=== PATIENT | male | born 1965 | race African-American/Black ===

== ENCOUNTER 2016-09-06 12:39 | Inpatient (IN) | payer OTHER ==
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
[2016-09-06] MEDS ORDERED: hydrOXYzine PAMOATE 50 MG CAPSULE (FP) PO PRN (14:41)
[2016-09-06] MEDS ORDERED: guaiFENesin/D-METHORPHAN HB 10 ML UNIT-DOSE CUPS PO PRN (14:41)
[2016-09-06] MEDS ORDERED: ACETAMINOPHEN 325 MG TABLET (FP) PO PRN (14:41)
[2016-09-06] MEDS ORDERED: MAGNESIUM HYDROX 2400MG/30ML ORAL SUSPENSION 30 ML CUP PO PRN (14:41)
[2016-09-06] MEDS ORDERED: P-EPHED 60MG/TRIPROLIDI 2.5MG TABLET PO PRN (14:41)
[2016-09-06] MEDS ORDERED: MAGNESIUM CITRATE 300 ML BOTTLE PO PRN (14:41)
[2016-09-06] MEDS ORDERED: chlordiazePOXIDE HCL 25 MG CAPSULE PO ONE (14:41)
[2016-09-06] MEDS ORDERED: LOPERAMIDE HCL 2 MG CAPSULE PO PRN (14:41)
[2016-09-06] MEDS ORDERED: MENTHOL/PHENOL 1 EACH UD MM PRN (14:41)
[2016-09-06] MEDS ORDERED: ALBUTEROL SO4 6.7 GM HFA INHALER IH PRN (14:45)
[2016-09-06] MEDS: chlordiazePOXIDE HCL 25 MG CAPSULE PO SCH ×2 (18:50→22:11)
[2016-09-06] MEDS: INSULIN SLIDING SCALE (NOVOLOG) 1 VIAL SQ SCH (18:51)
[2016-09-06] MEDS: NICOTINE 21 MG/24 HOURS TOPICAL PATCH TD SCH (18:51)
[2016-09-06] MEDS ORDERED: MINERAL OIL/PETROLATUM,WHITE 3.5 GM TUBE OU SCH (22:00)
[2016-09-06] MEDS: THIAMINE HCL 100 MG TABLET (FP) PO SCH (22:10)
[2016-09-06] MEDS: ARTIFICIAL TEARS (POLYVINYL ALCOHOL 1.4%) OPTH DROPS OU PRN (22:10)
[2016-09-06] MEDS: ATORVASTATIN CA 20 MG TABLET (FP) PO SCH (22:11)
[2016-09-06] MEDS: TAMSULOSIN HCL 0.4 MG CAP.ER.24H (FP) PO SCH (22:11)
[2016-09-06] MEDS: HYDROCHLOROTHIAZIDE 25 MG TABLET (FP) PO SCH (22:11)
[2016-09-06] MEDS: LOSARTAN POTASSIUM 50 MG TABLET (FP) PO SCH (22:11)
[2016-09-06] MEDS: diphenhydrAMINE HCL 50 MG CAPSULE PO PRN (22:13)
[2016-09-06] MEDS: BUDESONIDE/FORMETEROL FUMARATE 160/4.5 mcg INHALER IH SCH (23:13)
[2016-09-07] MEDS ORDERED: METHADONE HCL 10 MG TABLET ONE (04:22)
[2016-09-07] MEDS ORDERED: METHADONE HCL 40 MG DISPERSABLE TABLET ONE (04:22)
[2016-09-07] MEDS: chlordiazePOXIDE HCL 25 MG CAPSULE PO SCH ×4 (05:44→22:30)
[2016-09-07] MEDS ORDERED: METHADONE HCL 10 MG TABLET (FOR DETOX USE ONLY) PO ONE (06:00)
[2016-09-07] MEDS ORDERED: METHADONE 40 MG, METHADONE 10 MG PO ONE (06:00)
[2016-09-07] MEDS: INSULIN SLIDING SCALE (NOVOLOG) 1 VIAL SQ SCH ×2 (06:55→17:17)
[2016-09-07 09:28] LABS: MCH 36.5 pg (25.7-33.7); MCHC 33.7 g/dl (32.0-35.9); MEAN CELL VOLUME 108.3 fl (80-96); MEAN PLT VOLUME 8.8 fl (7.5-11.1); PLATELET COUNT 155 K/MM3 (134-434); RDW 13.5 % (11.9-15.9); WHITE BLOOD COUNT 4.3 K/mm3 (4.0-10.0)
[2016-09-07 09:44] LABS: ALBUMIN 3.3 g/dl (3.4-5.0); ALK PHOS 170 U/L (45-117); ANION GAP 8 (8-16); BILIRUBIN,TOTAL 0.9 mg/dL (0.2-1.0); CALCIUM 8.5 mg/dL (8.5-10.1); CO2 26 mmol/L (21-32); COCKROFT - GAULT 62.11; CREATININE 1.2 mg/dL (0.7-1.3); GLUCOSE,RANDOM 114 mg/dL (74-106); SGOT/AST 238 U/L (15-37); SGPT/ALT 105 U/L (12-78); TOT PROT 6.5 g/dl (6.4-8.2)
[2016-09-07] MEDS: BUDESONIDE/FORMETEROL FUMARATE 160/4.5 mcg INHALER IH SCH ×2 (10:05→21:37)
[2016-09-07] MEDS: LOSARTAN POTASSIUM 50 MG TABLET (FP) PO SCH ×2 (10:06→21:37)
[2016-09-07] MEDS: HYDROCHLOROTHIAZIDE 25 MG TABLET (FP) PO SCH ×2 (10:06→21:37)
[2016-09-07] MEDS: amLODIPine BESYLATE 10 MG TABLET (FP) PO SCH (10:06)
[2016-09-07] MEDS: ASPIRIN COATED 81 MG TABLET.EC PO SCH (10:06)
[2016-09-07] MEDS: PRENATAL VITAMINS W/ FOLIC ACID TABLET (FP) PO SCH (10:06)
[2016-09-07] MEDS: NICOTINE 21 MG/24 HOURS TOPICAL PATCH TD SCH ×2 (10:07→10:14)
[2016-09-07] MEDS: chlordiazePOXIDE HCL 25 MG CAPSULE PO PRN (14:12)
--- NOTE | 2016-09-07 15:09 | PN ---
S CIWA - CIWA Score Nausea/Vomitin Muscle Tremors: 4-Moderate,w/Arms Extend Anxiety: 4-Mod. Anxious/Guarded Agitation: 4-Moderately Restless Paroxysmal Sweats: 3 Orientation: 0-Oriented Tacttile Disturbances: 3-Moderate Itch/Numb/Burn Auditory Disturbances: 0-None Visual Disturbances: 0-None Headache: 2-Mild CIWA-Ar Total Score: 23 BHS Progress Note (SOAP) Subjective: Nausea, tremor, chills, sense or crawling in skin, interrupted sleep, anxious, restless Objective: 09/07/16 15:06 Last Vital Signs Temp Pulse Resp BP Pulse Ox 97.2 F L 82 20 147/104 09/07/16 13:47 09/07/16 13:47 09/07/16 13:47 09/07/16 13:47 Laboratory Tests 09/06/16 09/07/16 09/07/16 18:37 05:45 06:20 WBC 4.3 RBC 3.06 L Hgb 11.2 L Hct 33.2 L MCV 108.3 H MCHC 33.7 RDW 13.5 D Plt Count 155 MPV 8.8 Sodium Potassium Chloride Carbon Dioxide Anion Gap BUN Creatinine Creat Clearance w eGFR POC Glucometer 102 106 Random Glucose Calcium Total Bilirubin AST ALT Alkaline Phosphatase Total Protein Albumin RPR Titer 09/07/16 09/07/16 06:20 06:20 WBC RBC Hgb Hct MCV MCHC RDW Plt Count MPV Sodium 145 Potassium 3.6 Chloride 111 H Carbon Dioxide 26 Anion Gap 8 BUN 14 D Creatinine 1.2 Creat Clearance w eGFR > 60 POC Glucometer Random Glucose 114 H D Calcium 8.5 Total Bilirubin 0.9 D AST 238 H D ALT 105 H D Alkaline Phosphatase 170 H Total Protein 6.5 Albumin 3.3 L RPR Titer Nonreactive Labs noted Assessment: 09/07/16 15:07 Withdrawal symptoms Noted with HTN Plan: Continue detox HTN: continue present regimen, monitor
[2016-09-07] MEDS ORDERED: INSULIN (NOVOLOG) ASPART 100 UNITS/ML 10ML VIAL ONE (16:43)
[2016-09-07] MEDS: ARTIFICIAL TEARS (POLYVINYL ALCOHOL 1.4%) OPTH DROPS OU PRN (21:36)
[2016-09-07] MEDS: THIAMINE HCL 100 MG TABLET (FP) PO SCH (21:36)
[2016-09-07] MEDS: TAMSULOSIN HCL 0.4 MG CAP.ER.24H (FP) PO SCH (21:37)
[2016-09-07] MEDS: ATORVASTATIN CA 20 MG TABLET (FP) PO SCH (21:37)
[2016-09-07] MEDS: diphenhydrAMINE HCL 50 MG CAPSULE PO PRN (21:41)
[2016-09-08] MEDS ORDERED: METHADONE HCL 10 MG TABLET ONE (04:55)
[2016-09-08] MEDS ORDERED: METHADONE HCL 40 MG DISPERSABLE TABLET ONE (04:56)
[2016-09-08] MEDS: chlordiazePOXIDE HCL 25 MG CAPSULE PO SCH ×2 (05:03→10:04)
[2016-09-08] MEDS ORDERED: METHADONE HCL 10 MG TABLET PO ONE (06:00)
[2016-09-08] MEDS ORDERED: METHADONE 40 MG, METHADONE 10 MG PO ONE (06:00)
[2016-09-08] MEDS: INSULIN SLIDING SCALE (NOVOLOG) 1 VIAL SQ SCH ×2 (07:18→17:02)
[2016-09-08] MEDS ORDERED: INSULIN (NOVOLOG) ASPART 100 UNITS/ML 10ML VIAL ONE (07:31)
[2016-09-08] MEDS: BUDESONIDE/FORMETEROL FUMARATE 160/4.5 mcg INHALER IH SCH ×2 (10:03→22:05)
[2016-09-08] MEDS: amLODIPine BESYLATE 10 MG TABLET (FP) PO SCH (10:04)
[2016-09-08] MEDS: HYDROCHLOROTHIAZIDE 25 MG TABLET (FP) PO SCH ×2 (10:04→22:06)
[2016-09-08] MEDS: NICOTINE 21 MG/24 HOURS TOPICAL PATCH TD SCH (10:04)
[2016-09-08] MEDS: TIOTROPIUM BROMIDE 2.5 MCG IH SCH (10:04)
[2016-09-08] MEDS: PRENATAL VITAMINS W/ FOLIC ACID TABLET (FP) PO SCH (10:04)
[2016-09-08] MEDS: ASPIRIN COATED 81 MG TABLET.EC PO SCH (10:04)
[2016-09-08] MEDS: LOSARTAN POTASSIUM 50 MG TABLET (FP) PO SCH ×2 (10:04→22:05)
[2016-09-08] MEDS: IBUPROFEN 400 MG TABLET (FP) PO PRN ×2 (11:12→22:09)
--- NOTE | 2016-09-08 11:20 | EKG ---
Test Reason : Blood Pressure : / mmHG Vent. Rate : 082 BPM Atrial Rate : 082 BPM P-R Int : 162 ms QRS Dur : 080 ms QT Int : 398 ms P-R-T Axes : 000 036 028 degrees QTc Int : 464 ms NORMAL SINUS RHYTHM MINIMAL VOLTAGE CRITERIA FOR LVH, MAY BE NORMAL VARIANT NONSPECIFIC T WAVE ABNORMALITY ABNORMAL ECG NO PREVIOUS ECGS AVAILABLE Confirmed by LAURA NARAYANAN MD ([id number]) on 09/08/2016 11:19:53 AM Referred By: Confirmed By:LAURA NARAYANAN MD
--- NOTE | 2016-09-08 11:52 | CONSULT ---
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 Substance Abuse History: - Smoking Cessation. Smoking history: Current every day smoker. Have you smoked in the past 12 months: Yes. Aproximately how many cigarettes per day: 15. Cigars Per Day: 0. Hx Chewing Tobacco Use: No. Initiated information on smoking cessation: Yes. 'Breaking Loose' booklet given : 09/06/16 (give on floor). - Substance & Tx. History. Hx Alcohol Use: Yes. Hx Substance Use: No. Substance Use Type: None. Hx Substance Use Treatment: Yes (detox). - Substances Abused. Alcohol. Route: Oral. Frequency: Daily. Amount used: 2 quarts vodka. Age of first use: 16. Date of Last Use: 09/06/16. Confirmed by patient. Medical History: Anemia,COPD,diabetes mellitus,alcoholic hepatitis,hypertension, GERD and a history of appendectomy. Psychiatric History: Patient admits to a history of multiple psychiatric hospitalizations.He is [facility].Diagnosed with Bipolar Disorder.Patient used to be on seroquel 200 mg po bid.Mr Whitmore is currently followed at the [facility].He indicates that his dose of seroquel has been considerably reduced (100 mg/hs).Review of pharmacy claims reveals that scripts for seroquel 200 mg/day was issued on 03/19/16 @ [facility].Noted remote history of suicidal ideation to jump off a roof years ago (no attempts). Physical/Sexual Abuse/Trauma History: Patient denies. Additional Comment: Urine Drug Screen Results: TRES-Cocaine, BZO-Benzodiazepines , MTD-Methadone.Noted. Mental Status Exam - Mental Status Exam Alert and Oriented to: Time, Place, Person Cognitive Function: Good Patient Appearance: Well Groomed Mood: Hopeful, Euthymic Affect: Appropriate, Normal Range Patient Behavior: Fatigued, Appropriate, Cooperative Speech Pattern: Clear Voice Loudness: Normal Thought Process: Intact, Goal Oriented Thought Disorder: Not Present Hallucinations: Denies Suicidal Ideation: Denies Homicidal Ideation: Denies Insight/Judgement: Poor Sleep: Poorly, Difficulty falling asleep Appetite: Good Muscle strength/Tone: Normal Gait/Station: Normal Psychiatric Findings - Problem List ([place] 1, 2,3) (1) Alcohol dependence with uncomplicated withdrawal Current Visit: Yes Status: Acute (2) Opioid dependence on agonist therapy Current Visit: Yes Status: Acute (3) Cocaine dependence Current Visit: Yes Status: Acute (4) Nicotine dependence Current Visit: Yes Status: Acute Qualifiers: Nicotine product type: cigarettes Substance use status: uncomplicated Qualified Code(s): F17.210 - Nicotine dependence, cigarettes, uncomplicated (5) Drug-induced mood disorder Current Visit: Yes Status: Acute (6) Bipolar disorder Current Visit: Yes Status: Chronic Comment: Historical diagnosis. (7) Hypercholesteremia Current Visit: Yes Status: Chronic (8) Hypertension Current Visit: Yes Status: Chronic Qualifiers: Hypertension type: essential hypertension Qualified Code(s): I10 - Essential (primary) hypertension (9) Weight loss Current Visit: Yes Status: Chronic (10) Insomnia Current Visit: Yes Status: Acute - Initial Treatment Plan Initial Treatment Plan: Psychoeducation.Detoxification.Seroquel 100 mg po hs.Side effects/benefits discussed with the patient.He agrees with this careplan.Observation.
[2016-09-08] MEDS ORDERED: INSULIN (NOVOLOG) ASPART 100 UNITS/ML 10ML VIAL SQ ONE (12:24)
--- NOTE | 2016-09-08 14:08 | PN ---
S CIWA - CIWA Score Nausea/Vomitin Muscle Tremors: 3 Anxiety: 4-Mod. Anxious/Guarded Agitation: 3 Paroxysmal Sweats: No Perspiration Orientation: 0-Oriented Tacttile Disturbances: 1-Very Mild Itch/Numbness Auditory Disturbances: 0-None Visual Disturbances: 0-None Headache: 1-Very Mild CIWA-Ar Total Score: 15 BHS Progress Note (SOAP) Subjective: Sweating, anxious, interrupted sleep, abdominal pain Objective: 09/08/16 14:05 Last Vital Signs Temp Pulse Resp BP Pulse Ox 99.3 F 89 18 124/92 09/08/16 13:32 09/08/16 13:32 09/08/16 13:32 09/08/16 13:32 Laboratory Tests 09/06/16 09/07/16 09/07/16 18:37 05:45 06:20 WBC 4.3 RBC 3.06 L Hgb 11.2 L Hct 33.2 L MCV 108.3 H MCHC 33.7 RDW 13.5 D Plt Count 155 MPV 8.8 Sodium Potassium Chloride Carbon Dioxide Anion Gap BUN Creatinine Creat Clearance w eGFR POC Glucometer 102 106 Random Glucose Calcium Total Bilirubin AST ALT Alkaline Phosphatase Total Protein Albumin RPR Titer 09/07/16 09/07/16 09/07/16 06:20 06:20 16:09 WBC RBC Hgb Hct MCV MCHC RDW Plt Count MPV Sodium 145 Potassium 3.6 Chloride 111 H Carbon Dioxide 26 Anion Gap 8 BUN 14 D Creatinine 1.2 Creat Clearance w eGFR > 60 POC Glucometer 218 Random Glucose 114 H D Calcium 8.5 Total Bilirubin 0.9 D AST 238 H D ALT 105 H D Alkaline Phosphatase 170 H Total Protein 6.5 Albumin 3.3 L RPR Titer Nonreactive 09/07/16 09/08/16 09/08/16 20:59 05:05 11:11 WBC RBC Hgb Hct MCV MCHC RDW Plt Count MPV Sodium Potassium Chloride Carbon Dioxide Anion Gap BUN Creatinine Creat Clearance w eGFR POC Glucometer 173 240 224 Random Glucose Calcium Total Bilirubin AST ALT Alkaline Phosphatase Total Protein Albumin RPR Titer Labs noted Assessment: 09/08/16 14:05 Withdrawal symptoms Plan: Continue detox Motrin 800mg PO q8hr prn pain scale 6-10/10 (use sparingly due to history of dm) , avoid tylenol due to elevated LFTs
[2016-09-08 14:21] LABS: URINE APPEARANCE CLEAR; URINE BILIRUBIN NEGATIVE (NEGATIVE); URINE BLOOD NEGATIVE (NEGATIVE); URINE COLOR YELLOW; URINE GLUCOSE (UA) 2+ (NEGATIVE); URINE KETONE NEGATIVE (NEGATIVE); URINE LEUK ESTERASE NEGATIVE (NEGATIVE); URINE NITRITE NEGATIVE (NEGATIVE); URINE PROTEIN NEGATIVE (NEGATIVE); URINE UROBILINOGEN 2.0 E.U/dl E.U./dl (0.2-1.0)
[2016-09-08] MEDS: chlordiazePOXIDE 5 MG CAPSULE PO SCH ×2 (17:02→22:05)
[2016-09-08] MEDS: QUEtiapine FUMARATE 100 MG TABLET (FP) PO SCH (22:05)
[2016-09-08] MEDS: ATORVASTATIN CA 20 MG TABLET (FP) PO SCH (22:05)
[2016-09-08] MEDS: THIAMINE HCL 100 MG TABLET (FP) PO SCH (22:06)
[2016-09-08] MEDS: TAMSULOSIN HCL 0.4 MG CAP.ER.24H (FP) PO SCH (22:06)
[2016-09-09] MEDS: chlordiazePOXIDE 5 MG CAPSULE PO SCH ×2 (05:22→10:15)
[2016-09-09] MEDS ORDERED: INSULIN (NOVOLOG) ASPART 100 UNITS/ML 10ML VIAL ONE (07:24)
[2016-09-09] MEDS ORDERED: METHADONE HCL 10 MG TABLET PO SCH (07:30)
[2016-09-09] MEDS: INSULIN SLIDING SCALE (NOVOLOG) 1 VIAL SQ SCH ×3 (07:37→16:24)
[2016-09-09] MEDS ORDERED: METHADONE HCL 10 MG TABLET ONE (07:50)
[2016-09-09] MEDS ORDERED: METHADONE HCL 40 MG DISPERSABLE TABLET ONE (07:51)
[2016-09-09] MEDS: METHADONE 40 MG, METHADONE 10 MG PO SCH (07:52)
[2016-09-09] MEDS: TIOTROPIUM BROMIDE 2.5 MCG IH SCH ×2 (08:45→10:13)
[2016-09-09] MEDS: BUDESONIDE/FORMETEROL FUMARATE 160/4.5 mcg INHALER IH SCH ×2 (10:13→22:00)
[2016-09-09] MEDS: ARTIFICIAL TEARS (POLYVINYL ALCOHOL 1.4%) OPTH DROPS OU PRN (10:14)
[2016-09-09] MEDS: HYDROCHLOROTHIAZIDE 25 MG TABLET (FP) PO SCH ×2 (10:15→22:01)
[2016-09-09] MEDS: amLODIPine BESYLATE 10 MG TABLET (FP) PO SCH (10:15)
[2016-09-09] MEDS: PRENATAL VITAMINS W/ FOLIC ACID TABLET (FP) PO SCH (10:15)
[2016-09-09] MEDS: ASPIRIN COATED 81 MG TABLET.EC PO SCH (10:15)
[2016-09-09] MEDS: NICOTINE 21 MG/24 HOURS TOPICAL PATCH TD SCH (10:15)
[2016-09-09] MEDS: LOSARTAN POTASSIUM 50 MG TABLET (FP) PO SCH ×2 (10:15→22:01)
--- NOTE | 2016-09-09 10:42 | PN ---
BHS Progress Note (SOAP) Subjective: ANXIETY,HEADACHE,STOMACH CRAMPS, DIARRHEA FRONTAL RIGHT SIDE HEADACHE. Objective: 09/09/16 10:42 Vital Signs 09/09/16 09/09/16 09/09/16 03:35 06:17 09:14 Temperature 98.0 F 98.1 F Pulse Rate 99 H 77 Respiratory 18 18 18 Rate Blood Pressure 115/90 130/77 09/09/16 09:20 Temperature Pulse Rate 77 Respiratory 18 Rate Blood Pressure 130/77 Assessment: 09/09/16 10:42 WITHDRAWAL SX Plan: CONTINUE DETOX
[2016-09-09] MEDS: MAG HYDROX/AL HYDROX/SIMETH 30 ML UNIT-DOSE CUP PO PRN ×2 (11:36→21:32)
[2016-09-09] MEDS ORDERED: PATIENT'S OWN MEDICATION (NON-FORMULARY) (Dextran 70/Hypromellose [Artificial Tears Eye Dr OP SCH (13:15)
[2016-09-09] MEDS: PANTOPRAZOLE 40 MG TABLET (FP) PO SCH (14:37)
[2016-09-09] MEDS: DOCUSATE SODIUM 100 MG CAPSULE (FP) PO SCH ×2 (14:37→22:01)
[2016-09-09] MEDS: FERROUS SO4 325 MG TABLET (FP) PO SCH (14:37)
[2016-09-09] MEDS: chlordiazePOXIDE HCL 25 MG CAPSULE PO PRN (14:38)
[2016-09-09] MEDS: chlordiazePOXIDE HCL 10 MG CAPSULE PO SCH ×2 (17:48→22:01)
[2016-09-09] MEDS: IBUPROFEN 400 MG TABLET (FP) PO PRN (17:56)
[2016-09-09] MEDS: QUEtiapine FUMARATE 100 MG TABLET (FP) PO SCH (22:01)
[2016-09-09] MEDS: THIAMINE HCL 100 MG TABLET (FP) PO SCH (22:01)
[2016-09-09] MEDS: TAMSULOSIN HCL 0.4 MG CAP.ER.24H (FP) PO SCH (22:01)
[2016-09-09] MEDS: ATORVASTATIN CA 20 MG TABLET (FP) PO SCH (22:01)
[2016-09-10] MEDS ORDERED: METHADONE HCL 10 MG TABLET ONE (03:52)
[2016-09-10] MEDS ORDERED: METHADONE HCL 40 MG DISPERSABLE TABLET ONE (03:53)
[2016-09-10] MEDS: chlordiazePOXIDE HCL 10 MG CAPSULE PO SCH ×2 (05:24→10:06)
[2016-09-10] MEDS: DOCUSATE SODIUM 100 MG CAPSULE (FP) PO SCH (05:24)
[2016-09-10] MEDS: METHADONE 40 MG, METHADONE 10 MG PO SCH (05:25)
[2016-09-10] MEDS: INSULIN SLIDING SCALE (NOVOLOG) 1 VIAL SQ SCH ×2 (06:37→11:41)
[2016-09-10 09:29] VITALS: BP 104/80; PULSE 95; TEMP 96.9
[2016-09-10] MEDS: TIOTROPIUM BROMIDE 2.5 MCG IH SCH (10:05)
[2016-09-10] MEDS: ASPIRIN COATED 81 MG TABLET.EC PO SCH (10:05)
[2016-09-10] MEDS: BUDESONIDE/FORMETEROL FUMARATE 160/4.5 mcg INHALER IH SCH (10:05)
[2016-09-10] MEDS: ARTIFICIAL TEARS (POLYVINYL ALCOHOL 1.4%) OPTH DROPS OU PRN (10:05)
[2016-09-10] MEDS: amLODIPine BESYLATE 10 MG TABLET (FP) PO SCH (10:05)
[2016-09-10] MEDS: HYDROCHLOROTHIAZIDE 25 MG TABLET (FP) PO SCH (10:06)
[2016-09-10] MEDS: PANTOPRAZOLE 40 MG TABLET (FP) PO SCH (10:06)
[2016-09-10] MEDS: PRENATAL VITAMINS W/ FOLIC ACID TABLET (FP) PO SCH (10:06)
[2016-09-10] MEDS: LOSARTAN POTASSIUM 50 MG TABLET (FP) PO SCH (10:06)
[2016-09-10] MEDS: NICOTINE 21 MG/24 HOURS TOPICAL PATCH TD SCH (10:06)
[2016-09-10] MEDS: FERROUS SO4 325 MG TABLET (FP) PO SCH (10:07)
--- NOTE | 2016-09-10 10:35 | DS ---
[facility] Detox Discharge Summary Admission Date: 09/06/16 Discharge Date: 09/10/16 - History Present History: Alcohol Dependence, MMTP Additional Comments: DETOX COMPLETED. ALERT O X 3. NAD. REFERRED TO REHAB TODAY. Pertinent Past History: ANEMIA HTN HYPERCHOLESTEROLEMIA WEIGHT LOSS PANCREATITIS GERD - Physical Exam Results Vital Signs: Vital Signs Temperature 96.9 F L 09/10/16 09:28 Pulse Rate 95 H 09/10/16 09:28 Respiratory Rate 20 09/10/16 09:28 Blood Pressure 104/80 09/10/16 09:28 O2 Sat by Pulse Oximetry (%) Pertinent Admission Physical Exam Findings: WITHDRAWAL SX - Treatment Hospital Course: Detox Protocol Followed, Detoxed Safely, Responded well, Discharged Condition Good, Rehab Referral Accepted Patient has Accepted a Rehab Referral to: [address] - Medication Discharge Medications: Ambulatory Orders Cyanocobalamin [Vitamin B12 -] 100 mcg PO DAILY 09/26/14 Testosterone [Androgel -] 25 mg TP DAILY 09/26/14 Thiamine HCl [Vitamin B1 -] 100 mg PO DAILY 09/26/14 Albuterol Sulfate Inhaler - [Ventolin HFA Inhaler -] 2 inh IH Q4H PRN #1 inh 12/26 Atorvastatin Ca [Lipitor] 20 mg PO HS #30 tablet 11/19/14 Aspirin [Aspirin EC] 81 mg PO DAILY #30 tablet. 06/10/15 Ferrous Sulfate [Feosol] 325 mg PO DAILY #90 ud 06/10/15 Amlodipine Besylate [Norvasc -] 10 mg PO DAILY 09/06/16 Budesonide/Formeterol Fumarate [SYMBICORT 160/4.5mcg -] 1 inh PO BID 09/06/16 Dextran 70/Hypromellose [Artificial Tears Eye Drops] 1 drop OP DAILY 09/06/16 Docusate Sodium [Colace -] 100 mg PO TID 09/06/16 Famotidine 20 mg PO BID 09/06/16 Hydrochlorothiazide 25 mg PO BID 09/06/16 Losartan Potassium [Cozaar -] 50 mg PO BID 09/06/16 Mineral Oil/Petrolatum,White [Advanced Eye Relief Opth Oint] 3.5 gm OP HS Multivitamins [Tab-A-Vit -] 1 tab PO DAILY 09/06/16 Tamsulosin HCl [Flomax -] 0.4 mg PO HS 09/06/16 Tiotropium [place] [Spiriva Respimat] 2.5 mcg IH DAILY 09/06/16 Quetiapine Fumarate [Seroquel] 100 mg PO HS #30 tablet 09/08/16 - Diagnosis (1) Alcohol dependence with uncomplicated withdrawal Current Visit: Yes Status: Acute (2) History of anemia Current Visit: Yes Status: Acute (3) Nicotine dependence Current Visit: Yes Status: Acute Qualifiers: Nicotine product type: cigarettes Substance use status: in withdrawal Qualified Code(s): F17.213 - Nicotine dependence, cigarettes, with withdrawal (4) Hypercholesteremia Current Visit: Yes Status: Chronic (5) Hypertension Current Visit: Yes Status: Chronic Qualifiers: Hypertension type: essential hypertension Qualified Code(s): I10 - Essential (primary) hypertension (6) Methadone maintenance therapy patient Current Visit: Yes Status: Chronic (7) Weight loss Current Visit: Yes Status: Chronic - AMA Did Patient Leave Against Medical Advice: No
[2016-09-10] MEDS ORDERED: INSULIN (NOVOLOG) ASPART 100 UNITS/ML 10ML VIAL ONE (11:38)
== END 2016-09-10 12:35 | disposition other institution (70) | DRG 773 ==
LOC: YASAS 12:39 → Y3N 13:50 → UNDOADMIN 13:50 → Y3N 17:05
PROVIDERS: ADMIT Internal Medicine; ATTEND Internal Medicine
PROC: HZ2ZZZZ Detoxification Services for Substance Abuse Treatment (ICD-10-PCS; principal; 2016-09-06)
DX: F10.230 Alcohol dependence with withdrawal, uncomplicated (principal); F11.20 Opioid dependence, uncomplicated; F17.213 Nicotine dependence, cigarettes, with withdrawal; F19.24 Other psychoactive substance dependence with psychoactive substance-induced mood disorder; F31.9 Bipolar disorder, unspecified; E78.00 Pure hypercholesterolemia, unspecified; D64.9 Anemia, unspecified; I10 Essential (primary) hypertension; J44.9 Chronic obstructive pulmonary disease, unspecified; K21.9 Gastro-esophageal reflux disease without esophagitis; G47.00 Insomnia, unspecified; R16.0 Hepatomegaly, not elsewhere classified; Z87.898 Personal history of other specified conditions; Z79.82 Long term (current) use of aspirin; Z87.19 Personal history of other diseases of the digestive system; Z86.69 Personal history of other diseases of the nervous system and sense organs; Z91.5 Personal history of self-harm
CPT/HCPCS: 36415; 80053; 81003; 85027; 86593; 93005; 93010

== ENCOUNTER 2016-09-10 13:02 | Inpatient (IN) | payer OTHER ==
[2016-09-10] MEDS ORDERED: ACETAMINOPHEN 325 MG TABLET (FP) PO PRN (16:13)
[2016-09-10] MEDS ORDERED: IBUPROFEN 400 MG TABLET (FP) PO PRN (16:13)
[2016-09-10] MEDS ORDERED: LOPERAMIDE HCL 2 MG CAPSULE PO PRN (16:13)
[2016-09-10] MEDS ORDERED: MAGNESIUM HYDROX 2400MG/30ML ORAL SUSPENSION 30 ML CUP PO PRN (16:13)
[2016-09-10] MEDS ORDERED: MENTHOL/PHENOL 1 EACH UD MM PRN (16:13)
[2016-09-10] MEDS ORDERED: MAGNESIUM CITRATE 300 ML BOTTLE PO PRN (16:13)
[2016-09-10] MEDS ORDERED: guaiFENesin/D-METHORPHAN HB 10 ML UNIT-DOSE CUPS PO PRN (16:13)
[2016-09-10] MEDS ORDERED: P-EPHED 60MG/TRIPROLIDI 2.5MG TABLET PO PRN (16:13)
[2016-09-10] MEDS ORDERED: ALBUTEROL SO4 6.7 GM HFA INHALER IH PRN (16:14)
--- NOTE | 2016-09-10 16:19 | HP ---
[facility] Rehab Assess/Revision - Admission History Admitted to Rehab from: [facility] Date of Admission to Rehab: 09/10/16 - Vital signs Vital Signs: Vital Signs Period Temp Pulse Resp BP Sys/Lopez Pulse Ox Last 24 Hr 98 F 104 16 94/54 - Findings Detox History & Physical reviewed: Yes Concur with findings: Yes Comments/Additional Findings: transferred from dertox to rehab admission as per protocol
[2016-09-10] MEDS: TAMSULOSIN HCL 0.4 MG CAP.ER.24H (FP) PO SCH (21:33)
[2016-09-10] MEDS: THIAMINE HCL 100 MG TABLET (FP) PO SCH (21:33)
[2016-09-10] MEDS: ATORVASTATIN CA 20 MG TABLET (FP) PO SCH (21:33)
[2016-09-10] MEDS: HYDROCHLOROTHIAZIDE 25 MG TABLET (FP) PO SCH (21:33)
[2016-09-10] MEDS: LOSARTAN POTASSIUM 50 MG TABLET (FP) PO SCH (21:33)
[2016-09-10] MEDS: DOCUSATE SODIUM 100 MG CAPSULE (FP) PO SCH (21:33)
[2016-09-10] MEDS: BUDESONIDE/FORMETEROL FUMARATE 160/4.5 mcg INHALER IH SCH (21:35)
[2016-09-10] MEDS: ACLIDINIUM BROMIDE 400 MCG/INH AERO.POWD IH SCH (21:37)
[2016-09-10] MEDS: diphenhydrAMINE HCL 50 MG CAPSULE PO PRN (21:37)
[2016-09-11] MEDS ORDERED: METHADONE HCL 40 MG DISPERSABLE TABLET PO SCH (06:45)
[2016-09-11] MEDS ORDERED: METHADONE HCL 10 MG TABLET ONE (06:46)
[2016-09-11] MEDS ORDERED: METHADONE HCL 40 MG DISPERSABLE TABLET ONE (06:47)
[2016-09-11] MEDS: METHADONE 40 MG, METHADONE 10 MG PO SCH (06:48)
[2016-09-11] MEDS: DOCUSATE SODIUM 100 MG CAPSULE (FP) PO SCH ×3 (06:48→21:43)
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
[2016-09-11] MEDS ORDERED: PATIENT'S OWN MEDICATION (NON-FORMULARY) (Dextran 70/Hypromellose [Artificial Tears Eye Dr OP SCH (10:00)
[2016-09-11] MEDS: BUDESONIDE/FORMETEROL FUMARATE 160/4.5 mcg INHALER IH SCH ×2 (10:16→21:44)
[2016-09-11] MEDS: ARTIFICIAL TEARS (POLYVINYL ALCOHOL 1.4%) OPTH DROPS OU SCH (10:16)
[2016-09-11] MEDS: ACLIDINIUM BROMIDE 400 MCG/INH AERO.POWD IH SCH ×2 (10:16→21:44)
[2016-09-11] MEDS: PRENATAL VITAMINS W/ FOLIC ACID TABLET (FP) PO SCH (10:17)
[2016-09-11] MEDS: ASPIRIN COATED 81 MG TABLET.EC PO SCH (10:17)
[2016-09-11] MEDS: CYANOCOBALAMIN (VITAMIN B-12) 100 MCG TABLET PO SCH (10:17)
[2016-09-11] MEDS: FERROUS SO4 325 MG TABLET (FP) PO SCH (10:17)
[2016-09-11] MEDS: LOSARTAN POTASSIUM 50 MG TABLET (FP) PO SCH ×2 (10:53→21:43)
[2016-09-11] MEDS: amLODIPine BESYLATE 10 MG TABLET (FP) PO SCH (10:53)
[2016-09-11] MEDS: HYDROCHLOROTHIAZIDE 25 MG TABLET (FP) PO SCH ×2 (10:53→21:43)
[2016-09-11] MEDS ORDERED: PNEUMOCOCCAL 23 VACCINE 0.5 ML VIAL IM ONE (12:00)
[2016-09-11] MEDS ORDERED: PNEUMOC 13-VAL CONJ-DIP CRM/PF 0.5 ML DISP.SYRIN IM ONE (13:00)
--- NOTE | 2016-09-11 13:24 | PN ---
BHS Progress Note Note: HISTORY OF PANCREATITIS,ANEMIA,WILL DO CBC,CM,AMYLASE,LIPASE IN AM,ON IRON 325 PGS PO DAILY
[2016-09-11] MEDS: ATORVASTATIN CA 20 MG TABLET (FP) PO SCH (21:43)
[2016-09-11] MEDS: TAMSULOSIN HCL 0.4 MG CAP.ER.24H (FP) PO SCH (21:43)
[2016-09-11] MEDS: QUEtiapine FUMARATE 200 MG TABLET PO SCH (21:43)
[2016-09-11] MEDS: THIAMINE HCL 100 MG TABLET (FP) PO SCH (21:43)
[2016-09-11] MEDS: diphenhydrAMINE HCL 50 MG CAPSULE PO PRN (21:47)
[2016-09-11] MEDS: PATIENT'S OWN MEDICATION (NON-FORMULARY) (Famotidine [Famotidine] 20 MG) PO SCH (21:47)
[2016-09-12] MEDS: MAG HYDROX/AL HYDROX/SIMETH 30 ML UNIT-DOSE CUP PO PRN (01:28)
[2016-09-12] MEDS ORDERED: METHADONE HCL 10 MG TABLET ONE (03:24)
[2016-09-12] MEDS ORDERED: METHADONE HCL 40 MG DISPERSABLE TABLET ONE (03:24)
[2016-09-12] MEDS: METHADONE 40 MG, METHADONE 10 MG PO SCH (06:08)
[2016-09-12] MEDS: DOCUSATE SODIUM 100 MG CAPSULE (FP) PO SCH ×3 (06:08→21:46)
[2016-09-12] MEDS: PRENATAL VITAMINS W/ FOLIC ACID TABLET (FP) PO SCH (10:17)
[2016-09-12] MEDS: FERROUS SO4 325 MG TABLET (FP) PO SCH (10:17)
[2016-09-12] MEDS: CYANOCOBALAMIN (VITAMIN B-12) 100 MCG TABLET PO SCH (10:17)
[2016-09-12] MEDS: ASPIRIN COATED 81 MG TABLET.EC PO SCH (10:17)
[2016-09-12] MEDS: ACLIDINIUM BROMIDE 400 MCG/INH AERO.POWD IH SCH ×2 (10:17→21:48)
[2016-09-12] MEDS: BUDESONIDE/FORMETEROL FUMARATE 160/4.5 mcg INHALER IH SCH ×2 (10:18→21:48)
[2016-09-12] MEDS: amLODIPine BESYLATE 10 MG TABLET (FP) PO SCH (10:18)
[2016-09-12] MEDS: HYDROCHLOROTHIAZIDE 25 MG TABLET (FP) PO SCH ×2 (10:18→21:50)
[2016-09-12] MEDS: PATIENT'S OWN MEDICATION (NON-FORMULARY) (Famotidine [Famotidine] 20 MG) PO SCH ×2 (10:18→21:49)
[2016-09-12] MEDS: LOSARTAN POTASSIUM 50 MG TABLET (FP) PO SCH ×2 (10:19→21:47)
[2016-09-12] MEDS: ARTIFICIAL TEARS (POLYVINYL ALCOHOL 1.4%) OPTH DROPS OU SCH (10:21)
[2016-09-12 13:55] LABS: MCH 37.2 pg (25.7-33.7); MCHC 33.6 g/dl (32.0-35.9); MEAN CELL VOLUME 110.5 fl (80-96); MEAN PLT VOLUME 9.7 fl (7.5-11.1); PLATELET COUNT 182 K/MM3 (134-434); RDW 13.7 % (11.9-15.9); WHITE BLOOD COUNT 4.6 K/mm3 (4.0-10.0)
[2016-09-12 14:10] LABS: ALBUMIN 3.6 g/dl (3.4-5.0); CALCIUM 9.1 mg/dL (8.5-10.1); COCKROFT - GAULT 40.19; CREATININE 1.8 mg/dL (0.7-1.3)
[2016-09-12 14:12] LABS: BILIRUBIN,TOTAL 0.7 mg/dL (0.2-1.0); TOT PROT 6.9 g/dl (6.4-8.2)
[2016-09-12 14:20] LABS: HYPOCHROMIA 2+
[2016-09-12] MEDS: TAMSULOSIN HCL 0.4 MG CAP.ER.24H (FP) PO SCH (21:46)
[2016-09-12] MEDS: ATORVASTATIN CA 20 MG TABLET (FP) PO SCH (21:46)
[2016-09-12] MEDS: QUEtiapine FUMARATE 200 MG TABLET PO SCH (21:46)
[2016-09-12] MEDS: THIAMINE HCL 100 MG TABLET (FP) PO SCH (21:46)
[2016-09-13] MEDS ORDERED: METHADONE HCL 10 MG TABLET ONE (03:55)
[2016-09-13] MEDS ORDERED: METHADONE HCL 40 MG DISPERSABLE TABLET ONE (03:55)
[2016-09-13] MEDS: DOCUSATE SODIUM 100 MG CAPSULE (FP) PO SCH ×3 (06:26→21:47)
[2016-09-13] MEDS: METHADONE 40 MG, METHADONE 10 MG PO SCH (06:26)
[2016-09-13] MEDS: ASPIRIN COATED 81 MG TABLET.EC PO SCH (10:08)
[2016-09-13] MEDS: PRENATAL VITAMINS W/ FOLIC ACID TABLET (FP) PO SCH (10:08)
[2016-09-13] MEDS: FERROUS SO4 325 MG TABLET (FP) PO SCH (10:08)
[2016-09-13] MEDS: CYANOCOBALAMIN (VITAMIN B-12) 100 MCG TABLET PO SCH (10:08)
[2016-09-13] MEDS: LOSARTAN POTASSIUM 50 MG TABLET (FP) PO SCH ×2 (10:09→21:47)
[2016-09-13] MEDS: BUDESONIDE/FORMETEROL FUMARATE 160/4.5 mcg INHALER IH SCH ×2 (10:09→21:47)
[2016-09-13] MEDS: PATIENT'S OWN MEDICATION (NON-FORMULARY) (Famotidine [Famotidine] 20 MG) PO SCH ×2 (10:09→21:50)
[2016-09-13] MEDS: ARTIFICIAL TEARS (POLYVINYL ALCOHOL 1.4%) OPTH DROPS OU SCH (10:10)
[2016-09-13] MEDS: ACLIDINIUM BROMIDE 400 MCG/INH AERO.POWD IH SCH ×2 (10:10→21:51)
[2016-09-13] MEDS: amLODIPine BESYLATE 10 MG TABLET (FP) PO SCH (10:12)
[2016-09-13] MEDS: HYDROCHLOROTHIAZIDE 25 MG TABLET (FP) PO SCH ×2 (10:12→21:50)
[2016-09-13] MEDS ORDERED: NICOTINE POLACRILEX 2 MG GUM BUC PRN (11:53)
[2016-09-13] MEDS: NICOTINE 21 MG/24 HOURS TOPICAL PATCH TD SCH (12:06)
[2016-09-13] MEDS: IBUPROFEN 600 MG TABLET (FP) PO PRN (18:23)
[2016-09-13] MEDS: ATORVASTATIN CA 20 MG TABLET (FP) PO SCH (21:47)
[2016-09-13] MEDS: QUEtiapine FUMARATE 200 MG TABLET PO SCH (21:47)
[2016-09-13] MEDS: TAMSULOSIN HCL 0.4 MG CAP.ER.24H (FP) PO SCH (21:47)
[2016-09-13] MEDS: THIAMINE HCL 100 MG TABLET (FP) PO SCH (21:47)
[2016-09-13] MEDS: diphenhydrAMINE HCL 50 MG CAPSULE PO PRN (21:52)
[2016-09-14] MEDS ORDERED: METHADONE HCL 10 MG TABLET ONE (03:44)
[2016-09-14] MEDS ORDERED: METHADONE HCL 40 MG DISPERSABLE TABLET ONE (03:44)
[2016-09-14] MEDS: DOCUSATE SODIUM 100 MG CAPSULE (FP) PO SCH ×3 (06:07→21:41)
[2016-09-14] MEDS: METHADONE 40 MG, METHADONE 10 MG PO SCH (06:07)
[2016-09-14] MEDS: ASPIRIN COATED 81 MG TABLET.EC PO SCH (10:12)
[2016-09-14] MEDS: FERROUS SO4 325 MG TABLET (FP) PO SCH (10:12)
[2016-09-14] MEDS: CYANOCOBALAMIN (VITAMIN B-12) 100 MCG TABLET PO SCH (10:12)
[2016-09-14] MEDS: PRENATAL VITAMINS W/ FOLIC ACID TABLET (FP) PO SCH (10:12)
[2016-09-14] MEDS: NICOTINE 21 MG/24 HOURS TOPICAL PATCH TD SCH (10:13)
[2016-09-14] MEDS: ARTIFICIAL TEARS (POLYVINYL ALCOHOL 1.4%) OPTH DROPS OU SCH (10:13)
[2016-09-14] MEDS: LOSARTAN POTASSIUM 50 MG TABLET (FP) PO SCH ×2 (10:13→21:41)
[2016-09-14] MEDS: PATIENT'S OWN MEDICATION (NON-FORMULARY) (Famotidine [Famotidine] 20 MG) PO SCH ×2 (10:13→21:43)
[2016-09-14] MEDS: ACLIDINIUM BROMIDE 400 MCG/INH AERO.POWD IH SCH ×2 (10:14→21:42)
[2016-09-14] MEDS: BUDESONIDE/FORMETEROL FUMARATE 160/4.5 mcg INHALER IH SCH ×2 (10:14→21:42)
[2016-09-14] MEDS: HYDROCHLOROTHIAZIDE 25 MG TABLET (FP) PO SCH ×2 (10:16→21:40)
[2016-09-14] MEDS: amLODIPine BESYLATE 10 MG TABLET (FP) PO SCH (10:16)
[2016-09-14] MEDS: ATORVASTATIN CA 20 MG TABLET (FP) PO SCH (21:40)
[2016-09-14] MEDS: QUEtiapine FUMARATE 200 MG TABLET PO SCH (21:40)
[2016-09-14] MEDS: diphenhydrAMINE HCL 50 MG CAPSULE PO PRN (21:41)
[2016-09-14] MEDS: TAMSULOSIN HCL 0.4 MG CAP.ER.24H (FP) PO SCH (21:41)
[2016-09-14] MEDS: THIAMINE HCL 100 MG TABLET (FP) PO SCH (21:41)
[2016-09-15] MEDS ORDERED: METHADONE HCL 40 MG DISPERSABLE TABLET ONE (03:18)
[2016-09-15] MEDS ORDERED: METHADONE HCL 10 MG TABLET ONE (03:18)
[2016-09-15] MEDS: METHADONE 40 MG, METHADONE 10 MG PO SCH (06:13)
[2016-09-15] MEDS: DOCUSATE SODIUM 100 MG CAPSULE (FP) PO SCH ×3 (06:14→21:46)
[2016-09-15] MEDS: FERROUS SO4 325 MG TABLET (FP) PO SCH (10:19)
[2016-09-15] MEDS: NICOTINE 21 MG/24 HOURS TOPICAL PATCH TD SCH (10:19)
[2016-09-15] MEDS: LOSARTAN POTASSIUM 50 MG TABLET (FP) PO SCH ×2 (10:19→21:43)
[2016-09-15] MEDS: ASPIRIN COATED 81 MG TABLET.EC PO SCH (10:19)
[2016-09-15] MEDS: amLODIPine BESYLATE 10 MG TABLET (FP) PO SCH (10:19)
[2016-09-15] MEDS: PRENATAL VITAMINS W/ FOLIC ACID TABLET (FP) PO SCH (10:19)
[2016-09-15] MEDS: CYANOCOBALAMIN (VITAMIN B-12) 100 MCG TABLET PO SCH (10:19)
[2016-09-15] MEDS: BUDESONIDE/FORMETEROL FUMARATE 160/4.5 mcg INHALER IH SCH ×2 (10:20→21:45)
[2016-09-15] MEDS: HYDROCHLOROTHIAZIDE 25 MG TABLET (FP) PO SCH ×2 (10:20→21:42)
[2016-09-15] MEDS: ACLIDINIUM BROMIDE 400 MCG/INH AERO.POWD IH SCH ×2 (10:20→21:45)
[2016-09-15] MEDS: PATIENT'S OWN MEDICATION (NON-FORMULARY) (Famotidine [Famotidine] 20 MG) PO SCH ×2 (10:20→21:43)
[2016-09-15] MEDS: ARTIFICIAL TEARS (POLYVINYL ALCOHOL 1.4%) OPTH DROPS OU SCH (10:21)
[2016-09-15] MEDS: hydrOXYzine PAMOATE 50 MG CAPSULE (FP) PO PRN (18:26)
[2016-09-15] MEDS: THIAMINE HCL 100 MG TABLET (FP) PO SCH (21:42)
[2016-09-15] MEDS: ATORVASTATIN CA 20 MG TABLET (FP) PO SCH (21:42)
[2016-09-15] MEDS: QUEtiapine FUMARATE 200 MG TABLET PO SCH (21:42)
[2016-09-15] MEDS: TAMSULOSIN HCL 0.4 MG CAP.ER.24H (FP) PO SCH (21:43)
[2016-09-15] MEDS: IBUPROFEN 600 MG TABLET (FP) PO PRN (21:46)
[2016-09-16] MEDS: hydrOXYzine PAMOATE 50 MG CAPSULE (FP) PO PRN ×3 (00:30→21:36)
[2016-09-16] MEDS ORDERED: METHADONE HCL 40 MG DISPERSABLE TABLET ONE (03:21)
[2016-09-16] MEDS ORDERED: METHADONE HCL 10 MG TABLET ONE (03:21)
[2016-09-16] MEDS: DOCUSATE SODIUM 100 MG CAPSULE (FP) PO SCH ×3 (06:01→21:34)
[2016-09-16] MEDS: METHADONE 40 MG, METHADONE 10 MG PO SCH (06:01)
[2016-09-16] MEDS: BUDESONIDE/FORMETEROL FUMARATE 160/4.5 mcg INHALER IH SCH ×2 (10:17→21:35)
[2016-09-16] MEDS: ARTIFICIAL TEARS (POLYVINYL ALCOHOL 1.4%) OPTH DROPS OU SCH (10:17)
[2016-09-16] MEDS: NICOTINE 21 MG/24 HOURS TOPICAL PATCH TD SCH (10:17)
[2016-09-16] MEDS: ACLIDINIUM BROMIDE 400 MCG/INH AERO.POWD IH SCH ×2 (10:17→21:34)
[2016-09-16] MEDS: LOSARTAN POTASSIUM 50 MG TABLET (FP) PO SCH ×2 (10:18→21:34)
[2016-09-16] MEDS: ASPIRIN COATED 81 MG TABLET.EC PO SCH (10:18)
[2016-09-16] MEDS: PRENATAL VITAMINS W/ FOLIC ACID TABLET (FP) PO SCH (10:18)
[2016-09-16] MEDS: PATIENT'S OWN MEDICATION (NON-FORMULARY) (Famotidine [Famotidine] 20 MG) PO SCH ×2 (10:18→21:35)
[2016-09-16] MEDS: CYANOCOBALAMIN (VITAMIN B-12) 100 MCG TABLET PO SCH (10:18)
[2016-09-16] MEDS: FERROUS SO4 325 MG TABLET (FP) PO SCH (10:18)
[2016-09-16] MEDS: HYDROCHLOROTHIAZIDE 25 MG TABLET (FP) PO SCH ×2 (10:18→21:34)
[2016-09-16] MEDS: amLODIPine BESYLATE 10 MG TABLET (FP) PO SCH (10:18)
[2016-09-16] MEDS: IBUPROFEN 600 MG TABLET (FP) PO PRN (10:20)
[2016-09-16] MEDS: QUEtiapine FUMARATE 200 MG TABLET PO SCH (21:34)
[2016-09-16] MEDS: THIAMINE HCL 100 MG TABLET (FP) PO SCH (21:34)
[2016-09-16] MEDS: TAMSULOSIN HCL 0.4 MG CAP.ER.24H (FP) PO SCH (21:34)
[2016-09-16] MEDS: ATORVASTATIN CA 20 MG TABLET (FP) PO SCH (21:34)
[2016-09-17] MEDS ORDERED: METHADONE HCL 10 MG TABLET ONE (03:20)
[2016-09-17] MEDS ORDERED: METHADONE HCL 40 MG DISPERSABLE TABLET ONE (03:21)
[2016-09-17] MEDS: METHADONE 40 MG, METHADONE 10 MG PO SCH (06:06)
[2016-09-17] MEDS: DOCUSATE SODIUM 100 MG CAPSULE (FP) PO SCH ×3 (06:06→21:40)
[2016-09-17] MEDS: CYANOCOBALAMIN (VITAMIN B-12) 100 MCG TABLET PO SCH (10:45)
[2016-09-17] MEDS: LOSARTAN POTASSIUM 50 MG TABLET (FP) PO SCH ×2 (10:45→21:41)
[2016-09-17] MEDS: PRENATAL VITAMINS W/ FOLIC ACID TABLET (FP) PO SCH (10:45)
[2016-09-17] MEDS: amLODIPine BESYLATE 10 MG TABLET (FP) PO SCH (10:45)
[2016-09-17] MEDS: ASPIRIN COATED 81 MG TABLET.EC PO SCH (10:45)
[2016-09-17] MEDS: FERROUS SO4 325 MG TABLET (FP) PO SCH (10:45)
[2016-09-17] MEDS: BUDESONIDE/FORMETEROL FUMARATE 160/4.5 mcg INHALER IH SCH ×2 (10:46→21:41)
[2016-09-17] MEDS: ACLIDINIUM BROMIDE 400 MCG/INH AERO.POWD IH SCH ×2 (10:46→21:42)
[2016-09-17] MEDS: PATIENT'S OWN MEDICATION (NON-FORMULARY) (Famotidine [Famotidine] 20 MG) PO SCH ×2 (10:46→21:41)
[2016-09-17] MEDS: HYDROCHLOROTHIAZIDE 25 MG TABLET (FP) PO SCH ×2 (10:47→21:42)
[2016-09-17] MEDS: ARTIFICIAL TEARS (POLYVINYL ALCOHOL 1.4%) OPTH DROPS OU SCH (10:47)
[2016-09-17] MEDS: NICOTINE 21 MG/24 HOURS TOPICAL PATCH TD SCH (10:48)
[2016-09-17] MEDS: MAG HYDROX/AL HYDROX/SIMETH 30 ML UNIT-DOSE CUP PO PRN (16:54)
[2016-09-17] MEDS: ATORVASTATIN CA 20 MG TABLET (FP) PO SCH (21:41)
[2016-09-17] MEDS: QUEtiapine FUMARATE 200 MG TABLET PO SCH (21:41)
[2016-09-17] MEDS: THIAMINE HCL 100 MG TABLET (FP) PO SCH (21:41)
[2016-09-17] MEDS: TAMSULOSIN HCL 0.4 MG CAP.ER.24H (FP) PO SCH (21:41)
[2016-09-17] MEDS: IBUPROFEN 600 MG TABLET (FP) PO PRN (21:44)
[2016-09-17] MEDS: hydrOXYzine PAMOATE 50 MG CAPSULE (FP) PO PRN (21:44)
[2016-09-18] MEDS ORDERED: METHADONE HCL 40 MG DISPERSABLE TABLET ONE (03:20)
[2016-09-18] MEDS ORDERED: METHADONE HCL 10 MG TABLET ONE (03:20)
[2016-09-18] MEDS: METHADONE 40 MG, METHADONE 10 MG PO SCH (06:00)
[2016-09-18] MEDS: DOCUSATE SODIUM 100 MG CAPSULE (FP) PO SCH ×3 (06:00→21:39)
[2016-09-18] MEDS: ASPIRIN COATED 81 MG TABLET.EC PO SCH (10:38)
[2016-09-18] MEDS: ACLIDINIUM BROMIDE 400 MCG/INH AERO.POWD IH SCH ×2 (10:38→21:39)
[2016-09-18] MEDS: ARTIFICIAL TEARS (POLYVINYL ALCOHOL 1.4%) OPTH DROPS OU SCH (10:38)
[2016-09-18] MEDS: FERROUS SO4 325 MG TABLET (FP) PO SCH (10:38)
[2016-09-18] MEDS: BUDESONIDE/FORMETEROL FUMARATE 160/4.5 mcg INHALER IH SCH ×2 (10:38→21:39)
[2016-09-18] MEDS: PRENATAL VITAMINS W/ FOLIC ACID TABLET (FP) PO SCH (10:38)
[2016-09-18] MEDS: CYANOCOBALAMIN (VITAMIN B-12) 100 MCG TABLET PO SCH (10:38)
[2016-09-18] MEDS: LOSARTAN POTASSIUM 50 MG TABLET (FP) PO SCH ×2 (10:38→21:39)
[2016-09-18] MEDS: PATIENT'S OWN MEDICATION (NON-FORMULARY) (Famotidine [Famotidine] 20 MG) PO SCH ×2 (10:39→21:41)
[2016-09-18] MEDS: hydrOXYzine PAMOATE 50 MG CAPSULE (FP) PO PRN ×2 (10:40→17:18)
[2016-09-18] MEDS: IBUPROFEN 600 MG TABLET (FP) PO PRN (10:40)
[2016-09-18] MEDS: HYDROCHLOROTHIAZIDE 25 MG TABLET (FP) PO SCH ×2 (10:41→21:38)
[2016-09-18] MEDS: amLODIPine BESYLATE 10 MG TABLET (FP) PO SCH (10:41)
[2016-09-18] MEDS: NICOTINE 21 MG/24 HOURS TOPICAL PATCH TD SCH (10:41)
--- NOTE | 2016-09-18 12:30 | PN ---
S Progress Note Note: chronic pain in abdomen,history of pancreatitis in the past ,will do sonogram of abdomen in am
[2016-09-18] MEDS: MAG HYDROX/AL HYDROX/SIMETH 30 ML UNIT-DOSE CUP PO PRN (14:32)
[2016-09-18] MEDS: ATORVASTATIN CA 20 MG TABLET (FP) PO SCH (21:38)
[2016-09-18] MEDS: QUEtiapine FUMARATE 200 MG TABLET PO SCH (21:38)
[2016-09-18] MEDS: TAMSULOSIN HCL 0.4 MG CAP.ER.24H (FP) PO SCH (21:39)
[2016-09-18] MEDS: THIAMINE HCL 100 MG TABLET (FP) PO SCH (21:39)
[2016-09-19] MEDS ORDERED: METHADONE HCL 10 MG TABLET ONE (03:43)
[2016-09-19] MEDS ORDERED: METHADONE HCL 40 MG DISPERSABLE TABLET ONE (03:43)
[2016-09-19] MEDS: METHADONE 40 MG, METHADONE 10 MG PO SCH (05:57)
[2016-09-19] MEDS: DOCUSATE SODIUM 100 MG CAPSULE (FP) PO SCH ×3 (08:23→21:47)
[2016-09-19] MEDS: ACLIDINIUM BROMIDE 400 MCG/INH AERO.POWD IH SCH ×2 (10:39→21:48)
[2016-09-19] MEDS: LOSARTAN POTASSIUM 50 MG TABLET (FP) PO SCH ×2 (10:39→21:47)
[2016-09-19] MEDS: PRENATAL VITAMINS W/ FOLIC ACID TABLET (FP) PO SCH (10:39)
[2016-09-19] MEDS: ASPIRIN COATED 81 MG TABLET.EC PO SCH (10:39)
[2016-09-19] MEDS: FERROUS SO4 325 MG TABLET (FP) PO SCH (10:39)
[2016-09-19] MEDS: CYANOCOBALAMIN (VITAMIN B-12) 100 MCG TABLET PO SCH (10:39)
[2016-09-19] MEDS: amLODIPine BESYLATE 10 MG TABLET (FP) PO SCH (10:39)
[2016-09-19] MEDS: PATIENT'S OWN MEDICATION (NON-FORMULARY) (Famotidine [Famotidine] 20 MG) PO SCH ×2 (10:40→21:51)
[2016-09-19] MEDS: NICOTINE 21 MG/24 HOURS TOPICAL PATCH TD SCH (10:40)
[2016-09-19] MEDS: ARTIFICIAL TEARS (POLYVINYL ALCOHOL 1.4%) OPTH DROPS OU SCH (10:40)
[2016-09-19] MEDS: BUDESONIDE/FORMETEROL FUMARATE 160/4.5 mcg INHALER IH SCH ×2 (10:40→21:47)
[2016-09-19] MEDS: HYDROCHLOROTHIAZIDE 25 MG TABLET (FP) PO SCH ×2 (10:42→21:46)
--- NOTE | 2016-09-19 12:05 | PN ---
[facility] Progress Note Note: ultra sound of abdomen noted,patient will go to see [facility] pmd and specialist gi for more evaluation and treatment at [facility] upon discharge
[2016-09-19] MEDS: IBUPROFEN 600 MG TABLET (FP) PO PRN (14:05)
[2016-09-19] MEDS: ATORVASTATIN CA 20 MG TABLET (FP) PO SCH (21:46)
[2016-09-19] MEDS: TAMSULOSIN HCL 0.4 MG CAP.ER.24H (FP) PO SCH (21:46)
[2016-09-19] MEDS: QUEtiapine FUMARATE 200 MG TABLET PO SCH (21:47)
[2016-09-19] MEDS: THIAMINE HCL 100 MG TABLET (FP) PO SCH (21:47)
[2016-09-19] MEDS: hydrOXYzine PAMOATE 50 MG CAPSULE (FP) PO PRN (21:50)
[2016-09-20] MEDS ORDERED: METHADONE HCL 40 MG DISPERSABLE TABLET ONE (03:11)
[2016-09-20] MEDS ORDERED: METHADONE HCL 10 MG TABLET ONE (03:11)
[2016-09-20] MEDS: DOCUSATE SODIUM 100 MG CAPSULE (FP) PO SCH ×3 (06:14→21:33)
[2016-09-20] MEDS: METHADONE 40 MG, METHADONE 10 MG PO SCH (06:14)
[2016-09-20] MEDS: CYANOCOBALAMIN (VITAMIN B-12) 100 MCG TABLET PO SCH (10:12)
[2016-09-20] MEDS: HYDROCHLOROTHIAZIDE 25 MG TABLET (FP) PO SCH ×2 (10:12→21:33)
[2016-09-20] MEDS: FERROUS SO4 325 MG TABLET (FP) PO SCH (10:12)
[2016-09-20] MEDS: ASPIRIN COATED 81 MG TABLET.EC PO SCH (10:12)
[2016-09-20] MEDS: PRENATAL VITAMINS W/ FOLIC ACID TABLET (FP) PO SCH (10:12)
[2016-09-20] MEDS: BUDESONIDE/FORMETEROL FUMARATE 160/4.5 mcg INHALER IH SCH ×2 (10:13→21:33)
[2016-09-20] MEDS: LOSARTAN POTASSIUM 50 MG TABLET (FP) PO SCH ×2 (10:13→21:33)
[2016-09-20] MEDS: amLODIPine BESYLATE 10 MG TABLET (FP) PO SCH (10:13)
[2016-09-20] MEDS: NICOTINE 21 MG/24 HOURS TOPICAL PATCH TD SCH (10:13)
[2016-09-20] MEDS: ACLIDINIUM BROMIDE 400 MCG/INH AERO.POWD IH SCH ×2 (10:14→21:34)
[2016-09-20] MEDS: PATIENT'S OWN MEDICATION (NON-FORMULARY) (Famotidine [Famotidine] 20 MG) PO SCH ×2 (10:15→21:33)
[2016-09-20] MEDS: ARTIFICIAL TEARS (POLYVINYL ALCOHOL 1.4%) OPTH DROPS OU SCH (10:17)
[2016-09-20] MEDS: hydrOXYzine PAMOATE 50 MG CAPSULE (FP) PO PRN ×2 (12:44→21:35)
[2016-09-20] MEDS: THIAMINE HCL 100 MG TABLET (FP) PO SCH (21:33)
[2016-09-20] MEDS: QUEtiapine FUMARATE 200 MG TABLET PO SCH (21:33)
[2016-09-20] MEDS: TAMSULOSIN HCL 0.4 MG CAP.ER.24H (FP) PO SCH (21:33)
[2016-09-20] MEDS: ATORVASTATIN CA 20 MG TABLET (FP) PO SCH (21:33)
[2016-09-20] MEDS: IBUPROFEN 600 MG TABLET (FP) PO PRN (21:35)
[2016-09-21] MEDS ORDERED: METHADONE HCL 10 MG TABLET ONE (03:18)
[2016-09-21] MEDS ORDERED: METHADONE HCL 40 MG DISPERSABLE TABLET ONE (03:19)
[2016-09-21] MEDS: METHADONE 40 MG, METHADONE 10 MG PO SCH (06:14)
[2016-09-21] MEDS: DOCUSATE SODIUM 100 MG CAPSULE (FP) PO SCH ×3 (06:14→21:24)
[2016-09-21] MEDS: LOSARTAN POTASSIUM 50 MG TABLET (FP) PO SCH ×2 (10:18→21:24)
[2016-09-21] MEDS: FERROUS SO4 325 MG TABLET (FP) PO SCH (10:18)
[2016-09-21] MEDS: CYANOCOBALAMIN (VITAMIN B-12) 100 MCG TABLET PO SCH (10:18)
[2016-09-21] MEDS: ACLIDINIUM BROMIDE 400 MCG/INH AERO.POWD IH SCH ×2 (10:18→21:24)
[2016-09-21] MEDS: PATIENT'S OWN MEDICATION (NON-FORMULARY) (Famotidine [Famotidine] 20 MG) PO SCH ×2 (10:18→21:25)
[2016-09-21] MEDS: ASPIRIN COATED 81 MG TABLET.EC PO SCH (10:18)
[2016-09-21] MEDS: PRENATAL VITAMINS W/ FOLIC ACID TABLET (FP) PO SCH (10:18)
[2016-09-21] MEDS: HYDROCHLOROTHIAZIDE 25 MG TABLET (FP) PO SCH ×2 (10:18→21:24)
[2016-09-21] MEDS: amLODIPine BESYLATE 10 MG TABLET (FP) PO SCH (10:18)
[2016-09-21] MEDS: hydrOXYzine PAMOATE 50 MG CAPSULE (FP) PO PRN ×3 (10:21→21:26)
[2016-09-21] MEDS: IBUPROFEN 600 MG TABLET (FP) PO PRN ×2 (10:21→21:26)
[2016-09-21] MEDS: NICOTINE 21 MG/24 HOURS TOPICAL PATCH TD SCH (10:22)
[2016-09-21] MEDS: ARTIFICIAL TEARS (POLYVINYL ALCOHOL 1.4%) OPTH DROPS OU SCH (10:54)
[2016-09-21] MEDS: BUDESONIDE/FORMETEROL FUMARATE 160/4.5 mcg INHALER IH SCH ×2 (10:55→21:24)
[2016-09-21] MEDS: ATORVASTATIN CA 20 MG TABLET (FP) PO SCH (21:24)
[2016-09-21] MEDS: QUEtiapine FUMARATE 200 MG TABLET PO SCH (21:24)
[2016-09-21] MEDS: THIAMINE HCL 100 MG TABLET (FP) PO SCH (21:24)
[2016-09-21] MEDS: TAMSULOSIN HCL 0.4 MG CAP.ER.24H (FP) PO SCH (21:24)
[2016-09-22] MEDS ORDERED: METHADONE HCL 10 MG TABLET ONE (03:18)
[2016-09-22] MEDS ORDERED: METHADONE HCL 40 MG DISPERSABLE TABLET ONE (03:19)
[2016-09-22] MEDS: DOCUSATE SODIUM 100 MG CAPSULE (FP) PO SCH ×3 (06:02→21:46)
[2016-09-22] MEDS: METHADONE 40 MG, METHADONE 10 MG PO SCH (06:03)
[2016-09-22] MEDS: HYDROCHLOROTHIAZIDE 25 MG TABLET (FP) PO SCH ×2 (10:22→21:46)
[2016-09-22] MEDS: PRENATAL VITAMINS W/ FOLIC ACID TABLET (FP) PO SCH (10:22)
[2016-09-22] MEDS: CYANOCOBALAMIN (VITAMIN B-12) 100 MCG TABLET PO SCH (10:22)
[2016-09-22] MEDS: LOSARTAN POTASSIUM 50 MG TABLET (FP) PO SCH ×2 (10:22→21:46)
[2016-09-22] MEDS: ASPIRIN COATED 81 MG TABLET.EC PO SCH (10:22)
[2016-09-22] MEDS: FERROUS SO4 325 MG TABLET (FP) PO SCH (10:22)
[2016-09-22] MEDS: ARTIFICIAL TEARS (POLYVINYL ALCOHOL 1.4%) OPTH DROPS OU SCH (10:23)
[2016-09-22] MEDS: PATIENT'S OWN MEDICATION (NON-FORMULARY) (Famotidine [Famotidine] 20 MG) PO SCH ×2 (10:23→21:50)
[2016-09-22] MEDS: BUDESONIDE/FORMETEROL FUMARATE 160/4.5 mcg INHALER IH SCH ×2 (10:23→21:49)
[2016-09-22] MEDS: ACLIDINIUM BROMIDE 400 MCG/INH AERO.POWD IH SCH ×2 (10:23→21:50)
[2016-09-22] MEDS: amLODIPine BESYLATE 10 MG TABLET (FP) PO SCH (10:24)
[2016-09-22] MEDS: NICOTINE 21 MG/24 HOURS TOPICAL PATCH TD SCH (10:26)
[2016-09-22] MEDS: IBUPROFEN 600 MG TABLET (FP) PO PRN ×2 (10:26→21:48)
[2016-09-22] MEDS: hydrOXYzine PAMOATE 50 MG CAPSULE (FP) PO PRN ×3 (10:26→21:48)
[2016-09-22] MEDS: TAMSULOSIN HCL 0.4 MG CAP.ER.24H (FP) PO SCH (21:45)
[2016-09-22] MEDS: THIAMINE HCL 100 MG TABLET (FP) PO SCH (21:45)
[2016-09-22] MEDS: QUEtiapine FUMARATE 200 MG TABLET PO SCH (21:46)
[2016-09-22] MEDS: ATORVASTATIN CA 20 MG TABLET (FP) PO SCH (21:46)
[2016-09-23] MEDS ORDERED: METHADONE HCL 40 MG DISPERSABLE TABLET ONE (02:58)
[2016-09-23] MEDS ORDERED: METHADONE HCL 10 MG TABLET ONE (02:58)
[2016-09-23] MEDS: DOCUSATE SODIUM 100 MG CAPSULE (FP) PO SCH ×3 (05:55→21:35)
[2016-09-23] MEDS: METHADONE 40 MG, METHADONE 10 MG PO SCH (05:55)
[2016-09-23] MEDS: PRENATAL VITAMINS W/ FOLIC ACID TABLET (FP) PO SCH (10:25)
[2016-09-23] MEDS: FERROUS SO4 325 MG TABLET (FP) PO SCH (10:26)
[2016-09-23] MEDS: HYDROCHLOROTHIAZIDE 25 MG TABLET (FP) PO SCH ×2 (10:26→21:34)
[2016-09-23] MEDS: ASPIRIN COATED 81 MG TABLET.EC PO SCH (10:26)
[2016-09-23] MEDS: PATIENT'S OWN MEDICATION (NON-FORMULARY) (Famotidine [Famotidine] 20 MG) PO SCH ×2 (10:26→21:39)
[2016-09-23] MEDS: LOSARTAN POTASSIUM 50 MG TABLET (FP) PO SCH ×2 (10:26→21:35)
[2016-09-23] MEDS: CYANOCOBALAMIN (VITAMIN B-12) 100 MCG TABLET PO SCH (10:26)
[2016-09-23] MEDS: amLODIPine BESYLATE 10 MG TABLET (FP) PO SCH (10:26)
[2016-09-23] MEDS: ACLIDINIUM BROMIDE 400 MCG/INH AERO.POWD IH SCH ×2 (10:26→21:38)
[2016-09-23] MEDS: BUDESONIDE/FORMETEROL FUMARATE 160/4.5 mcg INHALER IH SCH ×2 (10:26→21:36)
[2016-09-23] MEDS: ARTIFICIAL TEARS (POLYVINYL ALCOHOL 1.4%) OPTH DROPS OU SCH (10:27)
[2016-09-23] MEDS: NICOTINE 21 MG/24 HOURS TOPICAL PATCH TD SCH (10:27)
[2016-09-23] MEDS: hydrOXYzine PAMOATE 50 MG CAPSULE (FP) PO PRN ×2 (10:29→21:34)
[2016-09-23] MEDS: QUEtiapine FUMARATE 200 MG TABLET PO SCH (21:34)
[2016-09-23] MEDS: TAMSULOSIN HCL 0.4 MG CAP.ER.24H (FP) PO SCH (21:35)
[2016-09-23] MEDS: ATORVASTATIN CA 20 MG TABLET (FP) PO SCH (21:35)
[2016-09-23] MEDS: IBUPROFEN 600 MG TABLET (FP) PO PRN (21:37)
[2016-09-23] MEDS: THIAMINE HCL 100 MG TABLET (FP) PO SCH (21:38)
[2016-09-24] MEDS ORDERED: METHADONE HCL 40 MG DISPERSABLE TABLET PO SCH (06:00)
[2016-09-24] MEDS ORDERED: METHADONE 40 MG, METHADONE 10 MG PO SCH (06:00)
[2016-09-24] MEDS ORDERED: METHADONE HCL 40 MG DISPERSABLE TABLET ONE (06:03)
[2016-09-24] MEDS ORDERED: METHADONE HCL 10 MG TABLET ONE (06:03)
[2016-09-24] MEDS: DOCUSATE SODIUM 100 MG CAPSULE (FP) PO SCH (06:11)
[2016-09-24 06:50] VITALS: BP 129/95; PULSE 98; TEMP 97.9
--- NOTE | 2016-09-24 10:16 | PN ---
Psychiatric Progress Note Vital Signs: Vital Signs Period Temp Pulse Resp BP Sys/Lopez Pulse Ox Last 24 Hr 97.9 F 86-98 16-18 129-130/93-95 Date of Session: 09/24/16 Chief Complaint:: discharge visit HPI: Patient has addressed alcohol, nicotine dependence comorbid Bipolar disorder. ROS: anemia, COPD, Hypertension, hypercholesterolemia, GERD medically managed. Current Medications: Active Medications Generic Name Dose Route Start Last Admin Trade Name Freq PRN Reason Stop Dose Admin Acetaminophen 650 mg 09/10/16 16:13 Tylenol - PO Q4H PRN FEVER OR PAIN Aclidinium [place] 1 puff 09/10/16 22:00 09/23/16 21:38 Tudorza - IH 1 puff BID REBECCA Administration Al Hydroxide/Mg Hydroxide 30 ml 09/10/16 16:13 09/18/16 14:32 Mylanta Oral Suspension - PO 30 ml Q6H PRN Administration DYSPEPSIA Albuterol Sulfate 2 puff 09/10/16 16:14 Ventolin Hfa Inhaler - IH Q4H PRN SHORT OF BREATH/WHEEZING Amlodipine Besylate 10 mg 09/11/16 10:00 09/23/16 10:26 Norvasc - PO 10 mg DAILY REBECCA Administration Artificial Tears 1 drop 09/11/16 10:00 09/23/16 10:27 Artificial Tears OU 1 drop DAILY REBECCA Administration Aspirin 81 mg 09/11/16 10:00 09/23/16 10:26 Ecotrin - PO 81 mg DAILY REBECCA Administration Atorvastatin Calcium 20 mg 09/10/16 22:00 09/23/16 21:35 Lipitor - PO 20 mg HS REBECCA Administration Budesonide/Formoterol Fumarate 1 puff 09/10/16 22:00 09/23/16 21:36 Symbicort 160/4.5mcg - IH 1 puff BID REBECCA Administration Cyanocobalamin 100 mcg 09/11/16 10:00 09/23/16 10:26 Vitamin B12 - PO 100 mcg DAILY REBECCA Administration Docusate Sodium 100 mg 09/10/16 22:00 09/24/16 06:11 Colace - PO 100 mg TID REBECCA Administration Eucalyptus/Menthol/Phenol/Sorbitol 1 each 09/10/16 16:13 Cepastat Lozenge - MM Q4H PRN SORE THROAT Ferrous Sulfate 325 mg 09/11/16 10:00 09/23/16 10:26 Feosol - PO 325 mg DAILY REBECCA Administration Guaifenesin 10 ml 09/10/16 16:13 Robitussin Dm - PO Q6H PRN COUGH Hydrochlorothiazide 25 mg 09/10/16 22:00 09/23/16 21:34 Hctz - PO 25 mg BID REBECCA Administration Hydroxyzine Pamoate 50 mg 09/15/16 11:29 09/23/16 21:34 Vistaril - PO 50 mg Q6H PRN Administration ANXIETY Ibuprofen 600 mg 09/12/16 11:11 09/23/16 21:37 Motrin - PO 600 mg Q6H PRN Administration PAIN Loperamide HCl 4 mg 09/10/16 16:13 Imodium - PO Q6H PRN DIARRHEA Losartan Potassium 50 mg 09/10/16 22:00 09/23/16 21:35 Cozaar - PO 50 mg BID REBECCA Administration Magnesium Hydroxide 30 ml 09/10/16 16:13 Milk Of Magnesia - PO DAILY PRN CONSTIPATION Methadone HCl 40 mg/ Methadone 50 mg 09/24/16 06:00 09/24/16 06:11 HCl 10 mg PO 09/30/16 05:59 50 mg DAILY@0600 REBECCA Administration Nicotine 21 mg 09/13/16 12:00 09/23/16 10:27 Nicoderm Patch - TD 21 mg DAILY REBECCA Administration Nicotine Polacrilex 2 mg 09/13/16 11:53 09/24/16 07:04 Nicorette Gum - BUC 2 mg Q2H PRN Administration NICOTINE REPLACEMENT RX Non-Formulary Medication 20 mg 09/11/16 22:00 09/23/16 21:39 Famotidine [Famotidine] PO 20 mg BID REBECCA Administration Multivit/Folic Acid/Iron 1 tab 09/11/16 10:00 09/23/16 10:25 Vitamins (Sjr) - PO 1 tab DAILY REBECCA Administration Pseudoephedrine/Triprolidine 1 combo 09/10/16 16:13 Actifed - PO TID PRN NASAL CONGESTION Quetiapine Fumarate 200 mg 09/11/16 22:00 09/23/16 21:34 Seroquel - PO 200 mg HS REBECCA Administration Tamsulosin HCl 0.4 mg 09/10/16 22:00 09/23/16 21:35 Flomax - PO 0.4 mg HS REBECCA Administration Thiamine HCl 100 mg 09/10/16 22:00 09/23/16 21:38 Vitamin B1 - PO 100 mg HS REBECCA Administration Current Side Effect: No Lab tests ordered: No Lab tests reviewed: Yes Provider note:: Patient has completed today his treatment and met his goals, will continue to address his issues at [facility] outpatient program, he gained insights into his addiction and motivated to continue maintain abstinence. He focused on importance of changing attitudes and utilize all supports available to prevent relapses. Seroquel well tolerated, scripts for 30 days supply provided, patient is stable for discharge. Total face to face time:: 35 Mental Status Exam - Mental Status Exam Alert and Oriented to: Time, Place, Person Cognitive Function: Good Patient Appearance: Well Groomed Mood: Hopeful Affect: Appropriate, Mood Congruent Patient Behavior: Appropriate, Cooperative Speech Pattern: Clear, Appropriate Voice Loudness: Normal Thought Process: Intact, Goal Oriented Thought Disorder: Not Present Hallucinations: Denies Suicidal Ideation: Denies Homicidal Ideation: Denies Insight/Judgement: Fair Sleep: Fair Appetite: Fair Muscle strength/Tone: Normal Gait/Station: Normal Psychiatric Treatment Plan - Problem List (1) Nicotine dependence Current Visit: No Qualifiers: Nicotine product type: cigarettes Substance use status: in withdrawal Qualified Code(s): F17.213 - Nicotine dependence, cigarettes, with withdrawal (2) Alcohol dependence Current Visit: No Qualifiers: Substance use status: in withdrawal Complication of substance-induced condition: uncomplicated Qualified Code(s): F10.230 - Alcohol dependence with withdrawal, uncomplicated (3) Bipolar disorder Current Visit: No Comment: Historical diagnosis.
[2016-09-24] MEDS: ACLIDINIUM BROMIDE 400 MCG/INH AERO.POWD IH SCH (10:20)
[2016-09-24] MEDS: ARTIFICIAL TEARS (POLYVINYL ALCOHOL 1.4%) OPTH DROPS OU SCH (10:20)
[2016-09-24] MEDS: BUDESONIDE/FORMETEROL FUMARATE 160/4.5 mcg INHALER IH SCH (10:20)
[2016-09-24] MEDS: HYDROCHLOROTHIAZIDE 25 MG TABLET (FP) PO SCH (10:21)
[2016-09-24] MEDS: PATIENT'S OWN MEDICATION (NON-FORMULARY) (Famotidine [Famotidine] 20 MG) PO SCH (10:21)
[2016-09-24] MEDS: ASPIRIN COATED 81 MG TABLET.EC PO SCH (10:22)
[2016-09-24] MEDS: CYANOCOBALAMIN (VITAMIN B-12) 100 MCG TABLET PO SCH (10:22)
[2016-09-24] MEDS: amLODIPine BESYLATE 10 MG TABLET (FP) PO SCH (10:22)
[2016-09-24] MEDS: LOSARTAN POTASSIUM 50 MG TABLET (FP) PO SCH (10:22)
[2016-09-24] MEDS: NICOTINE 21 MG/24 HOURS TOPICAL PATCH TD SCH (10:22)
[2016-09-24] MEDS: PRENATAL VITAMINS W/ FOLIC ACID TABLET (FP) PO SCH (10:22)
[2016-09-24] MEDS: FERROUS SO4 325 MG TABLET (FP) PO SCH (10:23)
== END 2016-09-24 10:50 | disposition home or self-care (01) | DRG 772 ==
LOC: YASAS 13:02 → Y5N 13:04
PROVIDERS: ADMIT Psychiatry & Neurology Psychiatry; ATTEND Psychiatry & Neurology Psychiatry
PROC: HZ42ZZZ Group Counseling for Substance Abuse Treatment, Cognitive-Behavioral (ICD-10-PCS; principal; 2016-09-10)
DX: F10.20 Alcohol dependence, uncomplicated (principal); F11.20 Opioid dependence, uncomplicated; F17.210 Nicotine dependence, cigarettes, uncomplicated; F31.9 Bipolar disorder, unspecified; E11.9 Type 2 diabetes mellitus without complications; E78.00 Pure hypercholesterolemia, unspecified; D64.9 Anemia, unspecified; I10 Essential (primary) hypertension; K21.9 Gastro-esophageal reflux disease without esophagitis; R10.9 Unspecified abdominal pain; Z87.19 Personal history of other diseases of the digestive system
CPT/HCPCS: 36415; 76700-TC; 80053; 82150; 83690; 85027; 90732; G0009

== ENCOUNTER 2017-01-31 14:12 | Inpatient (IN) | payer OTHER ==
[2017-01-31 15:10] VITALS: BMI 19.8
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
[2017-01-31] MEDS ORDERED: NICOTINE POLACRILEX 2 MG GUM BC PRN (17:10)
[2017-01-31] MEDS ORDERED: guaiFENesin/D-METHORPHAN HB 10 ML UNIT-DOSE CUPS PO PRN (17:10)
[2017-01-31] MEDS ORDERED: LOPERAMIDE HCL 2 MG CAPSULE PO PRN (17:10)
[2017-01-31] MEDS ORDERED: diphenhydrAMINE HCL 50 MG CAPSULE PO PRN (17:10)
[2017-01-31] MEDS ORDERED: chlordiazePOXIDE HCL 25 MG CAPSULE PO PRN (17:10)
[2017-01-31] MEDS ORDERED: MAGNESIUM HYDROX 2400MG/30ML ORAL SUSPENSION 30 ML CUP PO PRN (17:10)
[2017-01-31] MEDS ORDERED: MAGNESIUM CITRATE 300 ML BOTTLE PO PRN (17:10)
[2017-01-31] MEDS ORDERED: chlordiazePOXIDE HCL 25 MG CAPSULE PO ONE (17:10)
[2017-01-31] MEDS ORDERED: IBUPROFEN 400 MG TABLET (FP) PO PRN (17:10)
[2017-01-31] MEDS ORDERED: P-EPHED 60MG/TRIPROLIDI 2.5MG TABLET PO PRN (17:10)
[2017-01-31] MEDS ORDERED: MENTHOL/PHENOL 1 EACH UD MM PRN (17:10)
[2017-01-31] MEDS ORDERED: ACETAMINOPHEN 325 MG TABLET (FP) PO PRN (17:10)
[2017-01-31] MEDS ORDERED: ALBUTEROL SO4 18 GM HFA INHALER IH PRN (17:14)
[2017-01-31] MEDS: TAMSULOSIN HCL 0.4 MG CAP.ER.24H (FP) PO SCH (21:11)
[2017-01-31] MEDS: THIAMINE HCL 100 MG TABLET (FP) PO SCH (21:11)
[2017-01-31] MEDS: ATORVASTATIN CA 20 MG TABLET (FP) PO SCH (21:11)
[2017-01-31] MEDS: LOSARTAN POTASSIUM 50 MG TABLET (FP) PO SCH (21:11)
[2017-01-31] MEDS: NICOTINE 21 MG/24 HOURS TOPICAL PATCH TD SCH (21:16)
[2017-01-31 23:05] LABS: URINE APPEARANCE CLEAR; URINE BILIRUBIN NEGATIVE (NEGATIVE); URINE BLOOD NEGATIVE (NEGATIVE); URINE COLOR YELLOW; URINE GLUCOSE (UA) NEGATIVE (NEGATIVE); URINE KETONE NEGATIVE (NEGATIVE); URINE NITRITE NEGATIVE (NEGATIVE); URINE PROTEIN NEGATIVE (NEGATIVE); URINE UROBILINOGEN NEGATIVE mg/dL (0.2-1.0)
[2017-01-31] MEDS: chlordiazePOXIDE HCL 25 MG CAPSULE PO SCH (23:55)
[2017-01-31] MEDS: BUDESONIDE/FORMETEROL FUMARATE 160/4.5 mcg INHALER IH SCH (23:55)
[2017-02-01] MEDS: METHADONE HCL 10 MG TABLET PO SCH (06:01)
[2017-02-01] MEDS: chlordiazePOXIDE HCL 25 MG CAPSULE PO SCH ×4 (06:01→22:01)
[2017-02-01 09:56] LABS: MCH 36.1 pg (25.7-33.7); MCHC 33.9 g/dl (32.0-35.9); MEAN CELL VOLUME 106.3 fl (80-96); MEAN PLT VOLUME 7.9 fl (7.5-11.1); PLATELET COUNT 160 K/MM3 (134-434); RDW 18.2 % (11.9-15.9); WHITE BLOOD COUNT 3.4 K/mm3 (4.0-10.0)
[2017-02-01 10:10] LABS: ALBUMIN 3.4 g/dl (3.4-5.0); ALK PHOS 413 U/L (45-117); ANION GAP 12 (8-16); BILIRUBIN,TOTAL 0.8 mg/dL (0.2-1.0); CALCIUM 7.6 mg/dL (8.5-10.1); CO2 25 mmol/L (21-32); CREATININE 1.1 mg/dL (0.7-1.3); GLUCOSE,RANDOM 138 mg/dL (74-106); SGOT/AST 378 U/L (15-37); SGPT/ALT 121 U/L (12-78); TOT PROT 6.8 g/dl (6.4-8.2)
[2017-02-01] MEDS: BUDESONIDE/FORMETEROL FUMARATE 160/4.5 mcg INHALER IH SCH ×2 (10:50→22:02)
[2017-02-01] MEDS: ASPIRIN COATED 81 MG TABLET.EC PO SCH (10:51)
[2017-02-01] MEDS: LOSARTAN POTASSIUM 50 MG TABLET (FP) PO SCH ×2 (10:51→22:02)
[2017-02-01] MEDS: PRENATAL VITAMINS W/ FOLIC ACID TABLET (FP) PO SCH (10:51)
[2017-02-01] MEDS: amLODIPine BESYLATE 10 MG TABLET (FP) PO SCH (10:51)
[2017-02-01] MEDS: NICOTINE 21 MG/24 HOURS TOPICAL PATCH TD SCH (10:54)
--- NOTE | 2017-02-01 11:01 | EKG ---
Test Reason : Blood Pressure : / mmHG Vent. Rate : 096 BPM Atrial Rate : 096 BPM P-R Int : 178 ms QRS Dur : 088 ms QT Int : 398 ms P-R-T Axes : 061 042 058 degrees QTc Int : 502 ms NORMAL SINUS RHYTHM MINIMAL VOLTAGE CRITERIA FOR LVH, MAY BE NORMAL VARIANT PROLONGED QT ABNORMAL ECG WHEN COMPARED WITH ECG OF 06-SEP-2016 17:34, NO SIGNIFICANT CHANGE WAS FOUND Confirmed by MAINE GARY, GWENDOLYN ([id number]) on 02/01/2017 11:01:04 AM Referred By: Anthony Jerome Confirmed By:GWENDOLYN GROVE MD
[2017-02-01] MEDS ORDERED: FLU VACCINE QUAD 60 MCG/0.5 ML (MDV 17-18) IM ONE (12:00)
--- NOTE | 2017-02-01 12:31 | PN ---
S CIWA - CIWA Score Nausea/Vomitin-Mild Nausea/No Vomiting Muscle Tremors: 4-Moderate,w/Arms Extend Anxiety: 4-Mod. Anxious/Guarded Agitation: 3 Paroxysmal Sweats: 3 Orientation: 0-Oriented Tacttile Disturbances: 0-None Auditory Disturbances: 0-None Visual Disturbances: 0-None Headache: 0-None Present CIWA-Ar Total Score: 15 BHS Progress Note (SOAP) Subjective: Anxiety,sweating,interrupted sleep,restless Objective: 02/01/17 12:29 Vital Signs 02/01/17 02/01/17 06:00 10:00 Temperature 97.5 F L 98.1 F Pulse Rate 98 H 108 H Respiratory 18 18 Rate Blood Pressure 133/99 146/97 Laboratory Tests 01/31/17 02/01/17 02/01/17 22:45 07:30 07:30 WBC 3.4 L RBC 2.49 L D Hgb 9.0 L D Hct 26.4 L D MCV 106.3 H MCH 36.1 H MCHC 33.9 RDW 18.2 H D Plt Count 160 MPV 7.9 D Sodium 147 H Potassium 2.9 L* D Chloride 110 H Carbon Dioxide 25 Anion Gap 12 BUN 21 H D Creatinine 1.1 D Creat Clearance w eGFR > 60 Random Glucose 138 H D Calcium 7.6 L Total Bilirubin 0.8 AST 378 H D ALT 121 H D Alkaline Phosphatase 413 H D Total Protein 6.8 Albumin 3.4 Urine Color Yellow Urine Appearance Clear Urine pH 5.0 Urine Protein Negative Urine Glucose (UA) Negative Urine Ketones Negative Urine Blood Negative Urine Nitrite Negative Urine Bilirubin Negative Urine Urobilinogen Negative RPR Titer 02/01/17 07:30 WBC RBC Hgb Hct MCV MCH MCHC RDW Plt Count MPV Sodium Potassium Chloride Carbon Dioxide Anion Gap BUN Creatinine Creat Clearance w eGFR Random Glucose Calcium Total Bilirubin AST ALT Alkaline Phosphatase Total Protein Albumin Urine Color Urine Appearance Urine pH Urine Protein Urine Glucose (UA) Urine Ketones Urine Blood Urine Nitrite Urine Bilirubin Urine Urobilinogen RPR Titer Nonreactive labs noted,K+ replacement started,we'll repeat labs on 02/03 Assessment: 02/01/17 12:31 Withdrawal sx. Anemia Hypokalemia Plan: Continue detox
[2017-02-01] MEDS ORDERED: POTASSIUM CHLORIDE TABS 20 MEQ TABLET.ER (FP) PO ONE ×2 (12:45→16:15)
[2017-02-01] MEDS: FERROUS SO4 325 MG TABLET (FP) PO SCH ×2 (13:30→17:40)
--- NOTE | 2017-02-01 13:32 | CONSULT ---
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 Substance Abuse History: Reports history of alcohol use. He started drinking alcohol at age 15, consumes 1.5 pint daily. Last drank on 01/31/17 Medical History: Significant for anemia, COPD, diabetes mellitus, alcoholic hepatitis, hypertension, GERD and a history of appendectomy.Smokes 15 cigarettes daily Psychiatric History: Patient reports being diagnosed with Bipolar Disorder in the and has had several psychiatric hospitalizations to [facility] and [facility]. Claims that most recent one was last December to [place] for depression and suicidal ideations. Patient is presently [facility] and currently on seroquel 200 mg po BID. Patient reports a history of suicidal ideation to jump off a roof years ago (no attempts), reportedly went on the roof to jump off but building [facility] saw him and called police. States this was related to concrete problems he was dealing with. Physical/Sexual Abuse/Trauma History: Reports no history of physical or sexual abuse, and no history of service. Reportedly he identifies of aunt in 10/23/13 at age 89 as traumatic as he was the one caring for her at the time and he had experienced multiple deaths in his family prior to that. Mental Status Exam - Mental Status Exam Alert and Oriented to: Time, Place, Person Cognitive Function: Fair Patient Appearance: Well Groomed Mood: Depressed Affect: Appropriate Patient Behavior: Cooperative Speech Pattern: Clear Voice Loudness: Normal Thought Process: Intact, Goal Oriented Thought Disorder: Not Present Hallucinations: Denies Suicidal Ideation: Denies Homicidal Ideation: Denies Insight/Judgement: Poor Sleep: Poorly Appetite: Good Muscle strength/Tone: Normal Gait/Station: Spastic Psychiatric Findings - Problem List ([place] 1, 2,3) (1) Bipolar disorder Current Visit: No Status: Chronic Comment: Historical diagnosis. (2) Alcohol-induced sleep disorder Current Visit: No Status: Acute (3) Alcohol dependence with uncomplicated withdrawal Current Visit: No Status: Acute (4) Opioid dependence on agonist therapy Current Visit: Yes Status: Acute (5) Nicotine dependence Current Visit: No Status: Acute Qualifiers: Nicotine product type: cigarettes Substance use status: in withdrawal Qualified Code(s): F17.213 - Nicotine dependence, cigarettes, with withdrawal; F17.213 - Nicotine dependence, cigarettes, with withdrawal (6) COPD (chronic obstructive pulmonary disease) Current Visit: Yes Status: Acute (7) GERD (gastroesophageal reflux disease) Current Visit: Yes Status: Acute Qualifiers: Esophagitis presence: without esophagitis Qualified Code(s): K21.9 - Gastro-esophageal reflux disease without esophagitis; K21.9 - Gastro- esophageal reflux disease without esophagitis; K21.9 - Gastro-esophageal reflux disease without esophagitis (8) Hypercholesteremia Current Visit: Yes Status: Chronic (9) Hypertension Current Visit: Yes Status: Chronic Qualifiers: Hypertension type: essential hypertension Qualified Code(s): I10 - Essential (primary) hypertension; I10 - Essential (primary) hypertension; I10 - Essential (primary) hypertension - Initial Treatment Plan Initial Treatment Plan: 1) Start Seroquel 200 mg po HS(dose reduced to avoid oversedation). 2) Continue inpatient detoxification
[2017-02-01 13:50] LABS: URINE LEUK ESTERASE Negative (NEGATIVE)
[2017-02-01] MEDS: TAMSULOSIN HCL 0.4 MG CAP.ER.24H (FP) PO SCH (22:01)
[2017-02-01] MEDS: POTASSIUM CHLORIDE TABS 20 MEQ TABLET.ER (FP) PO SCH (22:02)
[2017-02-01] MEDS: THIAMINE HCL 100 MG TABLET (FP) PO SCH (22:02)
[2017-02-01] MEDS: ATORVASTATIN CA 20 MG TABLET (FP) PO SCH (22:02)
[2017-02-01] MEDS: QUEtiapine FUMARATE 200 MG TABLET PO SCH (22:02)
[2017-02-02] MEDS: METHADONE HCL 10 MG TABLET PO SCH (05:44)
[2017-02-02] MEDS: chlordiazePOXIDE HCL 25 MG CAPSULE PO SCH ×3 (05:45→21:50)
[2017-02-02] MEDS: FERROUS SO4 325 MG TABLET (FP) PO SCH ×3 (07:15→21:49)
[2017-02-02] MEDS: ASPIRIN COATED 81 MG TABLET.EC PO SCH (10:06)
[2017-02-02] MEDS: PRENATAL VITAMINS W/ FOLIC ACID TABLET (FP) PO SCH (10:06)
[2017-02-02] MEDS: amLODIPine BESYLATE 10 MG TABLET (FP) PO SCH (10:06)
[2017-02-02] MEDS: LOSARTAN POTASSIUM 50 MG TABLET (FP) PO SCH ×2 (10:06→21:49)
[2017-02-02] MEDS: POTASSIUM CHLORIDE TABS 20 MEQ TABLET.ER (FP) PO SCH ×2 (10:06→21:49)
[2017-02-02] MEDS: NICOTINE 21 MG/24 HOURS TOPICAL PATCH TD SCH (10:09)
[2017-02-02] MEDS: BUDESONIDE/FORMETEROL FUMARATE 160/4.5 mcg INHALER IH SCH ×2 (10:47→21:49)
--- NOTE | 2017-02-02 12:12 | PN ---
S CIWA - CIWA Score Nausea/Vomitin Muscle Tremors: 3 Anxiety: 3 Agitation: 3 Paroxysmal Sweats: 1-Minimal Palms Moist Orientation: 0-Oriented Tacttile Disturbances: 1-Very Mild Itch/Numbness Auditory Disturbances: 1-Very Mild Visual Disturbances: 0-None Headache: 2-Mild CIWA-Ar Total Score: 17 BHS Progress Note (SOAP) Subjective: ALERT,IRRITABLE,ANXIOUS,INTERRUPTED SLEEP,PAIN IN THE BODY AND BACK,TREMOR Objective: 02/02/17 12:15 Vital Signs Temperature 98.1 F 02/02/17 10:10 Pulse Rate 109 H 02/02/17 10:10 Respiratory Rate 18 02/02/17 10:10 Blood Pressure 122/91 02/02/17 10:10 O2 Sat by Pulse Oximetry (%) EKG NSR,LVH,PROLONG QT NO CHEST PAIN,NO SOB,NO DIZZINESS Lab Results WBC 3.4 K/mm3 (4.0-10.0) L 02/01/17 07:30 RBC 2.49 M/mm3 (4.00-5.60) L D 02/01/17 07:30 Hgb 9.0 GM/dL (11.7-16.9) L D 02/01/17 07:30 Hct 26.4 % (35.4-49) L D 02/01/17 07:30 MCV 106.3 fl (80-96) H 02/01/17 07:30 MCHC 33.9 g/dl (32.0-35.9) 02/01/17 07:30 RDW 18.2 % (11.9-15.9) H D 02/01/17 07:30 Plt Count 160 K/MM3 (134-434) 02/01/17 07:30 Sodium 147 mmol/L (136-145) H 02/01/17 07:30 Potassium 2.9 mmol/L (3.5-5.1) L* D 02/01/17 07:30 Chloride 110 mmol/L (98-107) H 02/01/17 07:30 Carbon Dioxide 25 mmol/L (21-32) 02/01/17 07:30 Anion Gap 12 (8-16) 02/01/17 07:30 BUN 21 mg/dL (7-18) H D 02/01/17 07:30 Creatinine 1.1 mg/dL (0.7-1.3) D 02/01/17 07:30 Random Glucose 138 mg/dL (74-106) H D 02/01/17 07:30 Calcium 7.6 mg/dL (8.5-10.1) L 02/01/17 07:30 Assessment: 02/02/17 12:17 WITHDRAWAL SYMPTOM Plan: CONTINUE DETOX,K IS 2.9 K DUR 20 MEQ PO ID,,REPEAT CBC,CMP IN AM
[2017-02-02] MEDS: hydrOXYzine PAMOATE 50 MG CAPSULE (FP) PO PRN ×2 (14:38→20:43)
[2017-02-02] MEDS: TAMSULOSIN HCL 0.4 MG CAP.ER.24H (FP) PO SCH (21:49)
[2017-02-02] MEDS: ATORVASTATIN CA 20 MG TABLET (FP) PO SCH (21:49)
[2017-02-02] MEDS: QUEtiapine FUMARATE 200 MG TABLET PO SCH (21:50)
[2017-02-02] MEDS: chlordiazePOXIDE 5 MG CAPSULE PO SCH (22:21)
[2017-02-02] MEDS: THIAMINE HCL 100 MG TABLET (FP) PO SCH (22:21)
[2017-02-03] MEDS: MAG HYDROX/AL HYDROX/SIMETH 30 ML UNIT-DOSE CUP PO PRN ×2 (00:02→17:17)
[2017-02-03] MEDS ORDERED: METHADONE HCL 10 MG TABLET ONE (04:55)
[2017-02-03] MEDS ORDERED: METHADONE HCL 40 MG DISPERSABLE TABLET ONE (04:55)
[2017-02-03] MEDS: METHADONE 40 MG, METHADONE 10 MG PO SCH (05:15)
[2017-02-03] MEDS: chlordiazePOXIDE 5 MG CAPSULE PO SCH ×3 (05:15→17:32)
[2017-02-03] MEDS: FERROUS SO4 325 MG TABLET (FP) PO SCH ×3 (08:02→18:08)
[2017-02-03 09:59] LABS: MCHC 33.6 g/dl (32.0-35.9); MEAN CELL VOLUME 107.3 fl (80-96); MEAN PLT VOLUME 8.6 fl (7.5-11.1); PLATELET COUNT 165 K/MM3 (134-434); RDW 18.2 % (11.9-15.9); WHITE BLOOD COUNT 5.2 K/mm3 (4.0-10.0)
[2017-02-03 10:19] LABS: INR 1.04 (0.82-1.09); PROTHROMBIN TIME (PATIENT) 11.7 SEC (9.98-11.88)
[2017-02-03] MEDS: BUDESONIDE/FORMETEROL FUMARATE 160/4.5 mcg INHALER IH SCH (10:20)
[2017-02-03 10:25] LABS: ALBUMIN 3.1 g/dl (3.4-5.0); ANION GAP 7 (8-16); BILIRUBIN,TOTAL 0.5 mg/dL (0.2-1.0); CALCIUM 7.8 mg/dL (8.5-10.1); CO2 29 mmol/L (21-32); CREATININE 1.2 mg/dL (0.7-1.3); GLUCOSE,RANDOM 142 mg/dL (74-106); SGOT/AST 165 U/L (15-37); SGPT/ALT 81 U/L (12-78); TOT PROT 6.4 g/dl (6.4-8.2)
[2017-02-03 10:26] LABS: ALK PHOS 374 U/L (45-117)
[2017-02-03] MEDS: amLODIPine BESYLATE 10 MG TABLET (FP) PO SCH (10:53)
[2017-02-03] MEDS: ASPIRIN COATED 81 MG TABLET.EC PO SCH (10:53)
[2017-02-03] MEDS: hydrOXYzine PAMOATE 50 MG CAPSULE (FP) PO PRN (10:53)
[2017-02-03] MEDS: PRENATAL VITAMINS W/ FOLIC ACID TABLET (FP) PO SCH (10:53)
[2017-02-03] MEDS: BACITRACIN 0.9 GM PACKET TP SCH ×2 (10:53→22:40)
[2017-02-03] MEDS: LOSARTAN POTASSIUM 50 MG TABLET (FP) PO SCH ×2 (10:54→22:33)
[2017-02-03] MEDS: NICOTINE 21 MG/24 HOURS TOPICAL PATCH TD SCH (10:55)
[2017-02-03] MEDS: POTASSIUM CHLORIDE TABS 20 MEQ TABLET.ER (FP) PO SCH ×2 (10:56→22:33)
--- NOTE | 2017-02-03 11:06 | PN ---
S Progress Note (SOAP) Subjective: alert,irritable,anxious,interrupted sleep Objective: 02/03/17 11:05 Vital Signs Temperature 98.2 F 02/03/17 10:19 Pulse Rate 99 H 02/03/17 10:19 Respiratory Rate 18 02/03/17 10:19 Blood Pressure 128/98 02/03/17 10:19 O2 Sat by Pulse Oximetry (%) Laboratory Last Values WBC 5.2 K/mm3 (4.0-10.0) D 02/03/17 07:00 RBC 2.46 M/mm3 (4.00-5.60) L 02/03/17 07:00 Hgb 8.9 GM/dL (11.7-16.9) L 02/03/17 07:00 Hct 26.4 % (35.4-49) L 02/03/17 07:00 MCV 107.3 fl (80-96) H 02/03/17 07:00 MCH 36.0 pg (25.7-33.7) H 02/03/17 07:00 MCHC 33.6 g/dl (32.0-35.9) 02/03/17 07:00 RDW 18.2 % (11.9-15.9) H 02/03/17 07:00 Plt Count 165 K/MM3 (134-434) 02/03/17 07:00 MPV 8.6 fl (7.5-11.1) 02/03/17 07:00 PT with INR 11.70 SEC (9.98-11.88) 02/03/17 07:00 INR 1.04 (0.82-1.09) 02/03/17 07:00 Sodium 142 mmol/L (136-145) 02/03/17 07:00 Potassium 4.2 mmol/L (3.5-5.1) D 02/03/17 07:00 Chloride 106 mmol/L (98-107) 02/03/17 07:00 Carbon Dioxide 29 mmol/L (21-32) 02/03/17 07:00 Anion Gap 7 (8-16) L 02/03/17 07:00 BUN 11 mg/dL (7-18) D 02/03/17 07:00 Creatinine 1.2 mg/dL (0.7-1.3) 02/03/17 07:00 Creat Clearance w eGFR > 60 (>60) 02/03/17 07:00 POC Glucometer 170 UNITS (()) 02/03/17 07:02 Random Glucose 142 mg/dL (74-106) H 02/03/17 07:00 Calcium 7.8 mg/dL (8.5-10.1) L 02/03/17 07:00 Total Bilirubin 0.5 mg/dL (0.2-1.0) D 02/03/17 07:00 AST 165 U/L (15-37) H D 02/03/17 07:00 ALT 81 U/L (12-78) H D 02/03/17 07:00 Alkaline Phosphatase 374 U/L (45-117) H 02/03/17 07:00 Total Protein 6.4 g/dl (6.4-8.2) 02/03/17 07:00 Albumin 3.1 g/dl (3.4-5.0) L 02/03/17 07:00 Urine Color Yellow 01/31/17 22:45 Urine Appearance Clear 01/31/17 22:45 Urine pH 5.0 (5.0-8.0) 01/31/17 22:45 Ur Specific [place] 1.010 (1.005-1.025) 01/31/17 22:45 Urine Protein Negative (NEGATIVE) 01/31/17 22:45 Urine Glucose (UA) Negative (NEGATIVE) 01/31/17 22:45 Urine Ketones Negative (NEGATIVE) 01/31/17 22:45 Urine Blood Negative (NEGATIVE) 01/31/17 22:45 Urine Nitrite Negative (NEGATIVE) 01/31/17 22:45 Urine Bilirubin Negative (NEGATIVE) 01/31/17 22:45 Urine Urobilinogen Negative mg/dL (0.2-1.0) 01/31/17 22:45 Ur Leukocyte Esterase Negative (NEGATIVE) 01/31/17 22:45 RPR Titer Nonreactive (NONREACTIVE) 02/01/17 07:30 Assessment: 02/03/17 11:06 withdrawal symptom Plan: continue detox,discharge in am
[2017-02-03] MEDS: DOCUSATE SODIUM 100 MG CAPSULE (FP) PO SCH ×2 (13:25→22:33)
[2017-02-03] MEDS: QUEtiapine FUMARATE 200 MG TABLET PO SCH (22:33)
[2017-02-03] MEDS: ATORVASTATIN CA 20 MG TABLET (FP) PO SCH (22:33)
[2017-02-03] MEDS: THIAMINE HCL 100 MG TABLET (FP) PO SCH (22:33)
[2017-02-03] MEDS: TAMSULOSIN HCL 0.4 MG CAP.ER.24H (FP) PO SCH (22:33)
[2017-02-03] MEDS: chlordiazePOXIDE HCL 10 MG CAPSULE PO SCH (22:34)
[2017-02-03] MEDS ORDERED: PANTOPRAZOLE 40 MG TABLET (FP) PO ONE (22:44)
[2017-02-04] MEDS: BUDESONIDE/FORMETEROL FUMARATE 160/4.5 mcg INHALER IH SCH ×2 (00:01→09:30)
[2017-02-04] MEDS: hydrOXYzine PAMOATE 50 MG CAPSULE (FP) PO PRN (02:56)
[2017-02-04] MEDS ORDERED: METHADONE HCL 10 MG TABLET ONE (04:58)
[2017-02-04] MEDS ORDERED: METHADONE HCL 40 MG DISPERSABLE TABLET ONE (04:58)
[2017-02-04] MEDS: METHADONE 40 MG, METHADONE 10 MG PO SCH (05:08)
[2017-02-04] MEDS: chlordiazePOXIDE HCL 10 MG CAPSULE PO SCH ×2 (05:09→09:30)
[2017-02-04] MEDS: DOCUSATE SODIUM 100 MG CAPSULE (FP) PO SCH (05:09)
[2017-02-04] MEDS: FERROUS SO4 325 MG TABLET (FP) PO SCH (07:05)
[2017-02-04] MEDS: PRENATAL VITAMINS W/ FOLIC ACID TABLET (FP) PO SCH (09:17)
[2017-02-04] MEDS: ASPIRIN COATED 81 MG TABLET.EC PO SCH (09:17)
[2017-02-04] MEDS: LOSARTAN POTASSIUM 50 MG TABLET (FP) PO SCH (09:17)
[2017-02-04] MEDS: POTASSIUM CHLORIDE TABS 20 MEQ TABLET.ER (FP) PO SCH (09:17)
[2017-02-04] MEDS: amLODIPine BESYLATE 10 MG TABLET (FP) PO SCH (09:17)
[2017-02-04] MEDS: BACITRACIN 0.9 GM PACKET TP SCH (09:18)
--- NOTE | 2017-02-04 09:20 | DS ---
[facility] Detox Discharge Summary Admission Date: 01/31/17 Discharge Date: 02/04/17 - History Present History: Alcohol Dependence, Cocaine Dependence, MMTP Pertinent Past History: hypertension hypercholesterolemia gerd varicose veins alcohol induced sleep disorder - Physical Exam Results Vital Signs: Vital Signs Temperature 98.2 F 02/04/17 06:34 Pulse Rate 100 H 02/04/17 06:34 Respiratory Rate 20 02/04/17 06:34 Blood Pressure 101/82 02/04/17 06:34 O2 Sat by Pulse Oximetry (%) Pertinent Admission Physical Exam Findings: withdrawal symptom - Treatment Hospital Course: Detox Protocol Followed, Detoxed Safely, Responded well, Discharged Condition Good - Medication Discharge Medications: Ambulatory Orders Testosterone [Androgel -] 25 mg TP DAILY 09/26/14 Albuterol Sulfate Inhaler - [Ventolin HFA Inhaler -] 2 inh IH Q4H PRN #1 inh 12/26 Dextran 70/Hypromellose [Artificial Tears Eye Drops] 1 drop OP DAILY 09/06/16 Docusate Sodium [Colace -] 100 mg PO TID 09/06/16 Mineral Oil/Petrolatum,White [Advanced Eye Relief Opth Oint] 3.5 gm OP HS Multivitamins [Tab-A-Vit -] 1 tab PO DAILY 09/06/16 Amlodipine Besylate [Norvasc -] 10 mg PO DAILY #30 tab 09/23/16 Aspirin [Aspirin EC] 81 mg PO DAILY #30 tablet. 09/23/16 Atorvastatin Ca [Lipitor] 20 mg PO HS #30 tablet 09/23/16 Budesonide/Formeterol Fumarate [SYMBICORT 160/4.5mcg -] 1 inh PO BID #1 inh Cyanocobalamin [Vitamin B12 -] 100 mcg PO DAILY #30 tab 09/23/16 Famotidine 20 mg PO BID #60 tab 09/23/16 Ferrous Sulfate [Feosol] 325 mg PO DAILY #90 ud 09/23/16 Hydrochlorothiazide 25 mg PO BID #60 tab 09/23/16 Losartan Potassium [Cozaar -] 50 mg PO BID #60 tab 09/23/16 Tamsulosin HCl [Flomax -] 0.4 mg PO HS #30 tab 09/23/16 Tiotropium [place] [Spiriva Respimat] 2.5 mcg IH DAILY #1 inh 09/23/16 Quetiapine Fumarate [Seroquel] 200 mg PO BID 01/31/17 Quetiapine Fumarate [Seroquel -] 200 mg PO BID #60 tab 02/01/17 - Diagnosis (1) Hypercholesteremia Current Visit: Yes Status: Chronic (2) Methadone maintenance therapy patient Current Visit: Yes Status: Chronic (3) Alcohol dependence with uncomplicated withdrawal Current Visit: No Status: Acute (4) Alcohol-induced sleep disorder Current Visit: No Status: Acute (5) Cocaine dependence Current Visit: No Status: Acute Qualifiers: Substance use status: uncomplicated Qualified Code(s): F14.20 - Cocaine dependence, uncomplicated; F14.20 - Cocaine dependence, uncomplicated; F14.20 - Cocaine dependence, uncomplicated (6) Varicose vein of leg Current Visit: Yes Status: Acute - AMA Did Patient Leave Against Medical Advice: No
[2017-02-04] MEDS: NICOTINE 21 MG/24 HOURS TOPICAL PATCH TD SCH (09:30)
[2017-02-04] MEDS ORDERED: PANTOPRAZOLE 40 MG TABLET (FP) PO SCH (10:00)
[2017-02-04 11:14] VITALS: BP 127/90; PULSE 90; TEMP 96.3
== END 2017-02-04 09:54 | disposition home or self-care (01) | DRG 773 ==
LOC: YASAS 14:12 → Y6N 19:28
PROVIDERS: ADMIT Internal Medicine; ATTEND Internal Medicine
PROC: HZ2ZZZZ Detoxification Services for Substance Abuse Treatment (ICD-10-PCS; principal; 2017-01-31)
DX: F10.230 Alcohol dependence with withdrawal, uncomplicated (principal); F10.282 Alcohol dependence with alcohol-induced sleep disorder; F11.20 Opioid dependence, uncomplicated; F14.20 Cocaine dependence, uncomplicated; F17.210 Nicotine dependence, cigarettes, uncomplicated; E87.6 Hypokalemia; E78.00 Pure hypercholesterolemia, unspecified; I83.90 Asymptomatic varicose veins of unspecified lower extremity; J44.9 Chronic obstructive pulmonary disease, unspecified; K21.9 Gastro-esophageal reflux disease without esophagitis; I10 Essential (primary) hypertension; D64.9 Anemia, unspecified; Z91.5 Personal history of self-harm
CPT/HCPCS: 36415; 80053; 81003; 85027; 85610; 86593; 93005; 93010

== ENCOUNTER 2017-03-16 15:03 | Inpatient (IN) | payer OTHER ==
[2017-03-16 21:30] VITALS: BMI 22.1
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
[2017-03-16] MEDS ORDERED: MAGNESIUM HYDROX 2400MG/30ML ORAL SUSPENSION 30 ML CUP PO PRN (23:25)
[2017-03-16] MEDS ORDERED: P-EPHED 60MG/TRIPROLIDI 2.5MG TABLET PO PRN (23:25)
[2017-03-16] MEDS ORDERED: guaiFENesin/D-METHORPHAN HB 10 ML UNIT-DOSE CUPS PO PRN (23:25)
[2017-03-16] MEDS ORDERED: MENTHOL/PHENOL 1 EACH UD MM PRN (23:25)
[2017-03-16] MEDS ORDERED: NICOTINE POLACRILEX 4 MG GUM BC PRN (23:25)
[2017-03-16] MEDS ORDERED: MAG HYDROX/AL HYDROX/SIMETH 30 ML UNIT-DOSE CUP PO PRN (23:25)
[2017-03-16] MEDS ORDERED: LOPERAMIDE HCL 2 MG CAPSULE PO PRN (23:25)
[2017-03-16] MEDS ORDERED: MAGNESIUM CITRATE 300 ML BOTTLE PO PRN (23:25)
[2017-03-16] MEDS ORDERED: TIOTROPIUM BROMIDE 18 MCG/INH (DEVICE W/ 5 CAPSULES) IH SCH (23:45)
[2017-03-16] MEDS ORDERED: ALBUTEROL SO4 18 GM HFA INHALER IH PRN (23:46)
[2017-03-17] MEDS: chlordiazePOXIDE HCL 25 MG CAPSULE PO PRN ×2 (00:32→20:23)
[2017-03-17] MEDS: chlordiazePOXIDE HCL 25 MG CAPSULE PO SCH ×5 (00:38→22:27)
[2017-03-17] MEDS: DOCUSATE SODIUM 100 MG CAPSULE (FP) PO SCH ×3 (05:41→21:51)
[2017-03-17] MEDS ORDERED: METHADONE HCL 10 MG TABLET PO SCH (08:30)
[2017-03-17] MEDS ORDERED: METHADONE 40 MG, METHADONE 20 MG PO ONE (09:15)
[2017-03-17] MEDS ORDERED: METHADONE HCL 10 MG TABLET ONE (09:33)
[2017-03-17] MEDS ORDERED: METHADONE HCL 40 MG DISPERSABLE TABLET ONE (09:33)
[2017-03-17] MEDS ORDERED: TIOTROPIUM BROMIDE 2.5 MCG IH SCH (10:00)
[2017-03-17] MEDS ORDERED: TESTOSTERONE 25 MG TP SCH (10:00)
[2017-03-17 10:13] LABS: MCH 35.1 pg (25.7-33.7); MCHC 33.1 g/dl (32.0-35.9); MEAN CELL VOLUME 106.1 fl (80-96); MEAN PLT VOLUME 8.6 fl (7.5-11.1); PLATELET COUNT 209 K/MM3 (134-434); WHITE BLOOD COUNT 3.8 K/mm3 (4.0-10.0)
[2017-03-17] MEDS: ASPIRIN COATED 81 MG TABLET.EC PO SCH (10:23)
[2017-03-17] MEDS: PRENATAL VITAMINS W/ FOLIC ACID TABLET (FP) PO SCH (10:23)
[2017-03-17] MEDS: amLODIPine BESYLATE 10 MG TABLET (FP) PO SCH (10:23)
[2017-03-17] MEDS: NICOTINE 21 MG/24 HOURS TOPICAL PATCH TD SCH (10:24)
[2017-03-17] MEDS: HYDROCHLOROTHIAZIDE 25 MG TABLET (FP) PO SCH ×2 (10:24→21:51)
[2017-03-17] MEDS: TIOTROPIUM BROMIDE 18 MCG/INH (DEVICE W/ 5 CAPSULES) IH SCH (10:25)
[2017-03-17] MEDS: BUDESONIDE/FORMETEROL FUMARATE 160/4.5 mcg INHALER IH SCH ×2 (10:25→21:53)
[2017-03-17 10:35] LABS: ALBUMIN 3.7 g/dl (3.4-5.0); ALK PHOS 250 U/L (45-117); ANION GAP 12 (8-16); BILIRUBIN,TOTAL 0.5 mg/dL (0.2-1.0); CALCIUM 8.7 mg/dL (8.5-10.1); CO2 24 mmol/L (21-32); CREATININE 1.3 mg/dL (0.7-1.3); GLUCOSE,RANDOM 130 mg/dL (74-106); SGOT/AST 108 U/L (15-37); SGPT/ALT 89 U/L (12-78); TOT PROT 7.2 g/dl (6.4-8.2)
--- NOTE | 2017-03-17 12:39 | PN ---
[facility] CIWA - CIWA Score Nausea/Vomitin Muscle Tremors: 4-Moderate,w/Arms Extend Anxiety: 2 Agitation: 0-Normal Activity Paroxysmal Sweats: 3 Orientation: 2-Disoriented Date<2 days Tacttile Disturbances: 2-Mild Itch/Numbness/Burn Auditory Disturbances: 0-None Visual Disturbances: 3-Moderate Sensitivity Headache: 0-None Present CIWA-Ar Total Score: 19 S Progress Note (SOAP) Subjective: Body Aches, Fatigue, Nausea, Tremors, Sweating. Objective: PT. A & O X 2 (UNCERTAIN ABOUT DAY/ DATE). PT. OBSERVED AMBULATING ON UNIT. NO ACUTE DISTRESS. 03/17/17 12:36 Vital Signs Temperature 97.5 F L 03/17/17 10:00 Pulse Rate 90 03/17/17 10:00 Respiratory Rate 20 03/17/17 10:00 Blood Pressure 142/100 03/17/17 10:00 O2 Sat by Pulse Oximetry (%) Laboratory Tests 03/17/17 03/17/17 03/17/17 07:00 07:00 07:00 WBC 3.8 L RBC 2.98 L D Hgb 10.4 L D Hct 31.6 L D MCV 106.1 H MCH 35.1 H MCHC 33.1 RDW 16.0 H D Plt Count 209 D MPV 8.6 Sodium 148 H Potassium 3.2 L D Chloride 112 H Carbon Dioxide 24 Anion Gap 12 BUN 29 H D Creatinine 1.3 Creat Clearance w eGFR 57.75 Random Glucose 130 H Calcium 8.7 Total Bilirubin 0.5 AST 108 H D ALT 89 H Alkaline Phosphatase 250 H D Total Protein 7.2 Albumin 3.7 RPR Titer Nonreactive LABS NOTED. UA RESULTS PENDING. 03/17/17 12:45 Assessment: 03/17/17 12:36 WITHDRAWAL SYMPTOMS. ANEMIA. HYPOKALEMIA. 03/17/17 12:45 Plan: CONTINUE DETOX. K-DUR, 20 MEQ PO X 1 NOW, THEN 20 MEQ PO BID AFTER. REPEAT CBC, CMP ON 03/19/2017 FOR ABNORMAL ADMISSION VALUES. D/C MAGNESIUM-CONTAINING MEDS. PATIENT PRESCRIBED TESTOSTERONE, 25 MG TP DAILY PRIOR TO ADMISSION TO DETOX. ACCORDING TO PATIENT, HE IS PRESCRIBED THIS MEDICATION TO HELP TREAT WEIGHT LOSS. HOWEVER, DUE TO HOSPITAL PRESCRIPTION RESTRICTIONS, PATIENT UNABLE TO HAVE THIS MEDICATION PRESCRIBED DURING THE TIME IN WHICH HE IS ADMITTED FOR DETOX. AFTER CONSULTATION WITH [facility] TECHNICIAN DR. Montse ANG MD, MEDICATION D /C' D FOR TIME IN WHICH HE IS ADMITTED FOR DETOX. PATIENT TO RESUME MEDICATION AFTER DISCHARGE FROM DETOX. INCREASE DAILY PO FLUID INTAKE.
[2017-03-17] MEDS: FERROUS SO4 325 MG TABLET (FP) PO SCH ×2 (13:37→17:09)
[2017-03-17] MEDS ORDERED: POTASSIUM CHLORIDE TABS 20 MEQ TABLET.ER (FP) PO ONE (13:45)
[2017-03-17] MEDS: POTASSIUM CHLORIDE TABS 20 MEQ TABLET.ER (FP) PO SCH (17:09)
[2017-03-17 18:13] LABS: URINE APPEARANCE CLEAR; URINE BILIRUBIN NEGATIVE (NEGATIVE); URINE BLOOD NEGATIVE (NEGATIVE); URINE COLOR LTYELLOW; URINE GLUCOSE (UA) NEGATIVE (NEGATIVE); URINE KETONE NEGATIVE (NEGATIVE); URINE NITRITE NEGATIVE (NEGATIVE); URINE PROTEIN NEGATIVE (NEGATIVE); URINE UROBILINOGEN NEGATIVE mg/dL (0.2-1.0)
[2017-03-17] MEDS: THIAMINE HCL 100 MG TABLET (FP) PO SCH (21:50)
[2017-03-17] MEDS: ATORVASTATIN CA 20 MG TABLET (FP) PO SCH (21:51)
[2017-03-17] MEDS: TAMSULOSIN HCL 0.4 MG CAP.ER.24H (FP) PO SCH (21:51)
[2017-03-17 22:55] LABS: URINE LEUK ESTERASE Negative (NEGATIVE)
[2017-03-17] MEDS ORDERED: hydrOXYzine PAMOATE 50 MG CAPSULE (FP) PO ONE (23:40)
[2017-03-17] MEDS ORDERED: hydrOXYzine PAMOATE 25 MG CAPSULE (FP) PO ONE (23:45)
[2017-03-18] MEDS ORDERED: METHADONE HCL 10 MG TABLET ONE (04:03)
[2017-03-18] MEDS ORDERED: METHADONE HCL 40 MG DISPERSABLE TABLET ONE (04:04)
[2017-03-18] MEDS: chlordiazePOXIDE HCL 25 MG CAPSULE PO SCH ×3 (05:40→16:59)
[2017-03-18] MEDS: METHADONE 40 MG, METHADONE 20 MG PO SCH (05:40)
[2017-03-18] MEDS: DOCUSATE SODIUM 100 MG CAPSULE (FP) PO SCH ×3 (05:40→22:21)
[2017-03-18] MEDS: FERROUS SO4 325 MG TABLET (FP) PO SCH ×2 (07:38→10:25)
--- NOTE | 2017-03-18 07:56 | EKG ---
Test Reason : Blood Pressure : / mmHG Vent. Rate : 082 BPM Atrial Rate : 082 BPM P-R Int : 180 ms QRS Dur : 076 ms QT Int : 412 ms P-R-T Axes : -08 042 054 degrees QTc Int : 481 ms NORMAL SINUS RHYTHM PROLONGED QT ABNORMAL ECG WHEN COMPARED WITH ECG OF 31-JAN-2017 20:18, NO SIGNIFICANT CHANGE WAS FOUND Confirmed by MD Burrell Daniel ([id number]) on 03/17/2017 2:59:38 PM Also confirmed by MD Burrell Daniel ([id number]), graphics editor DANNY FELDMAN ([id number]) on 03/18/2017 7:56:00 AM Referred By: Confirmed By:Danny Burrell MD
[2017-03-18] MEDS ORDERED: ALBUTEROL SO4 2.5/IPRATROPIUM 0.5 INH SOL 3 ML VIAL.NEB. NEB PRN (08:43)
[2017-03-18] MEDS ORDERED: ALBUTEROL SO4 0.083% IH SOL 2.5 MG/3 ML VIAL.NEB. NEB PRN (09:02)
[2017-03-18] MEDS ORDERED: TESTOSTERONE 25 MG TP SCH (10:00)
[2017-03-18] MEDS: TIOTROPIUM BROMIDE 18 MCG/INH (DEVICE W/ 5 CAPSULES) IH SCH (10:24)
[2017-03-18] MEDS: BUDESONIDE/FORMETEROL FUMARATE 160/4.5 mcg INHALER IH SCH ×2 (10:24→22:50)
[2017-03-18] MEDS: POTASSIUM CHLORIDE TABS 20 MEQ TABLET.ER (FP) PO SCH ×2 (10:25→16:59)
[2017-03-18] MEDS: amLODIPine BESYLATE 10 MG TABLET (FP) PO SCH (10:25)
[2017-03-18] MEDS: PRENATAL VITAMINS W/ FOLIC ACID TABLET (FP) PO SCH (10:25)
[2017-03-18] MEDS: ASPIRIN COATED 81 MG TABLET.EC PO SCH (10:25)
[2017-03-18] MEDS: METHYL SALICYLATE/MENTHOL OINT 30 GM TUBE TP SCH ×3 (10:25→22:19)
[2017-03-18] MEDS: HYDROCHLOROTHIAZIDE 25 MG TABLET (FP) PO SCH ×2 (10:25→22:20)
[2017-03-18] MEDS: NICOTINE 21 MG/24 HOURS TOPICAL PATCH TD SCH (10:26)
--- NOTE | 2017-03-18 11:24 | CONSULT ---
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 Substance Abuse History: Discussed in this session.Confirmed by patient.Details in current [facility] report : Smoking history: Current every day smoker. Have you smoked in the past 12 months: Yes. Aproximately how many cigarettes per day: 15. Cigars Per Day: 0. Hx Chewing Tobacco Use: No. Initiated information on smoking cessation: Yes. 'Breaking Loose' booklet given: 03/16/17. - Substance & Tx. History. Hx Alcohol Use: Yes. Hx Substance Use: Yes. Substance Use Type : Alcohol, Tranquilizers. Hx Substance Use Treatment: Yes (01/2017). - Substances Abused. Alcohol. Route: Oral. Frequency: Daily. Amount used: vodka quart. Age of first use: 46. Date of Last Use: 03/16/17 Medical History: Hypercholesterolemia,anemia,COPD,diabetes mellitus,alcoholic hepatitis,hypertension,GERD,antecedent of lung surgery and a history of appendectomy. Psychiatric History: Known history of multiple psychiatric hospitalizations ( [facility] and [facility]).Diagnosed with Bipolar Disorder.Prescribed seroquel 200 mg po bid ( confirmed by pharmacy claims of 02/02/17 at [facility]).Mr Whitmore reports that he has stopped going to [facility] ([facility] for follow up.Last visit was three months ago (self-report).Mr Whitmore confirms a remote history of suicidal ideation to jump off a roof years ago (no attempts) .Currently on methadone mainteneca (60 mg/day). Physical/Sexual Abuse/Trauma History: No reported history of abuse. Additional Comment: Urine Drug Screen Results: BZO-Benzodiazepines, MTD- Methadone.Noted. Mental Status Exam - Mental Status Exam Alert and Oriented to: Time, Place, Person Cognitive Function: Grossly Intact Patient Appearance: Disheveled (thin habitus,frail) Mood: Withdrawn, Hopeful, Euthymic Affect: Appropriate, Normal Range Patient Behavior: Fatigued, Appropriate, Cooperative Speech Pattern: Clear Voice Loudness: Normal Thought Process: Intact, Goal Oriented Thought Disorder: Not Present Hallucinations: Denies Suicidal Ideation: Denies Homicidal Ideation: Denies Insight/Judgement: Poor Sleep: Poorly, Difficulty falling asleep Appetite: Good Muscle strength/Tone: Normal Gait/Station: Normal Psychiatric Findings - Problem List (Smoot 1, 2,3) (1) Opioid dependence on agonist therapy Current Visit: Yes Status: Acute (2) Alcohol dependence with uncomplicated withdrawal Current Visit: Yes Status: Acute (3) Nicotine dependence Current Visit: Yes Status: Acute Qualifiers: Nicotine product type: cigarettes Substance use status: in withdrawal Qualified Code(s): F17.213 - Nicotine dependence, cigarettes, with withdrawal (4) Drug-induced mood disorder Current Visit: Yes Status: Acute (5) Bipolar disorder Current Visit: Yes Status: Chronic Comment: As per records / self-report.On medications.Non-adherent to OPD care. (6) Insomnia Current Visit: Yes Status: Acute - Initial Treatment Plan Initial Treatment Plan: Psychoeducation.Sleep hygiene.Detoxification in effect.Seroquel 100 mg po hs (reduced in view of emaciated state + polypharmacy) .Will titrate as clinically indicated during hospital course.Side effects/ benefits discussed with patient.He has expressed his agreement with this careplan.Observation.
[2017-03-18] MEDS: ACETAMINOPHEN 325 MG TABLET (FP) PO PRN ×2 (15:06→18:47)
[2017-03-18] MEDS: chlordiazePOXIDE HCL 25 MG CAPSULE PO PRN (15:06)
--- NOTE | 2017-03-18 15:06 | PN ---
S CIWA - CIWA Score Nausea/Vomitin-No Nausea/No Vomiting Muscle Tremors: 3 Anxiety: 4-Mod. Anxious/Guarded Agitation: 2 Paroxysmal Sweats: 3 Orientation: 2-Disoriented Date<2 days Tacttile Disturbances: 0-None Auditory Disturbances: 0-None Visual Disturbances: 0-None Headache: 3-Moderate CIWA-Ar Total Score: 17 BHS Progress Note (SOAP) Subjective: Sweating, Interrupted Sleep, H/A, Body Aches, Constipation. Objective: PT. A & O X 2 (UNCERTAIN ABOUT CURRENT DAY/ DATE). PT. OBSERVED AMBULATING ON UNIT. NO ACUTE DISTRESS. 03/18/17 15:05 Vital Signs Temperature 98.8 F 03/18/17 13:08 Pulse Rate 87 03/18/17 13:08 Respiratory Rate 18 03/18/17 13:08 Blood Pressure 133/97 03/18/17 13:08 O2 Sat by Pulse Oximetry (%) Laboratory Tests 03/17/17 03/17/17 03/17/17 07:00 07:00 07:00 WBC 3.8 L RBC 2.98 L D Hgb 10.4 L D Hct 31.6 L D MCV 106.1 H MCH 35.1 H MCHC 33.1 RDW 16.0 H D Plt Count 209 D MPV 8.6 Sodium 148 H Potassium 3.2 L D Chloride 112 H Carbon Dioxide 24 Anion Gap 12 BUN 29 H D Creatinine 1.3 Creat Clearance w eGFR 57.75 POC Glucometer Random Glucose 130 H Calcium 8.7 Total Bilirubin 0.5 AST 108 H D ALT 89 H Alkaline Phosphatase 250 H D Total Protein 7.2 Albumin 3.7 Urine Color Urine Appearance Urine pH Ur Specific [place] Urine Protein Urine Glucose (UA) Urine Ketones Urine Blood Urine Nitrite Urine Bilirubin Urine Urobilinogen Ur Leukocyte Esterase RPR Titer Nonreactive 03/17/17 03/18/17 17:30 05:39 WBC RBC Hgb Hct MCV MCH MCHC RDW Plt Count MPV Sodium Potassium Chloride Carbon Dioxide Anion Gap BUN Creatinine Creat Clearance w eGFR POC Glucometer 116 Random Glucose Calcium Total Bilirubin AST ALT Alkaline Phosphatase Total Protein Albumin Urine Color Ltyellow Urine Appearance Clear Urine pH 5.0 Ur Specific [place] 1.016 Urine Protein Negative Urine Glucose (UA) Negative Urine Ketones Negative Urine Blood Negative Urine Nitrite Negative Urine Bilirubin Negative Urine Urobilinogen Negative Ur Leukocyte Esterase Negative RPR Titer LABS NOTED. Assessment: 03/18/17 15:06 WITHDRAWAL SYMPTOMS. Plan: CONTINUE DETOX.
[2017-03-18] MEDS: THIAMINE HCL 100 MG TABLET (FP) PO SCH (22:19)
[2017-03-18] MEDS: QUEtiapine FUMARATE 100 MG TABLET (FP) PO SCH (22:20)
[2017-03-18] MEDS: ATORVASTATIN CA 20 MG TABLET (FP) PO SCH (22:20)
[2017-03-18] MEDS: chlordiazePOXIDE 5 MG CAPSULE PO SCH (22:20)
[2017-03-18] MEDS: TAMSULOSIN HCL 0.4 MG CAP.ER.24H (FP) PO SCH (22:20)
[2017-03-19] MEDS: chlordiazePOXIDE HCL 25 MG CAPSULE PO PRN (02:47)
[2017-03-19] MEDS: ACETAMINOPHEN 325 MG TABLET (FP) PO PRN ×2 (02:47→12:43)
[2017-03-19] MEDS ORDERED: METHADONE HCL 40 MG DISPERSABLE TABLET ONE (04:28)
[2017-03-19] MEDS ORDERED: METHADONE HCL 10 MG TABLET ONE (04:28)
[2017-03-19] MEDS: DOCUSATE SODIUM 100 MG CAPSULE (FP) PO SCH ×3 (05:59→22:04)
[2017-03-19] MEDS: chlordiazePOXIDE 5 MG CAPSULE PO SCH ×3 (05:59→17:10)
[2017-03-19] MEDS: METHADONE 40 MG, METHADONE 20 MG PO SCH (06:00)
[2017-03-19 10:17] LABS: BASOPHIL 0.9 % (0-2.0); EOSINOPHIL 2.3 % (0-4.5); MCH 35.6 pg (25.7-33.7); MEAN CELL VOLUME 104.8 fl (80-96); MEAN PLT VOLUME 8.8 fl (7.5-11.1); NEUTROPHILS 55.7 % (42.8-82.8); PLATELET COUNT 196 K/MM3 (134-434); RDW 15.7 % (11.9-15.9); WHITE BLOOD COUNT 4.5 K/mm3 (4.0-10.0)
[2017-03-19 10:21] LABS: ALBUMIN 3.4 g/dl (3.4-5.0); ANION GAP 7 (8-16); CALCIUM 8.5 mg/dL (8.5-10.1); CO2 28 mmol/L (21-32); GLUCOSE,RANDOM 115 mg/dL (74-106); SGOT/AST 105 U/L (15-37); SGPT/ALT 84 U/L (12-78)
[2017-03-19 10:23] LABS: ALK PHOS 266 U/L (45-117); BILIRUBIN,TOTAL 0.3 mg/dL (0.2-1.0); CREATININE 1.1 mg/dL (0.7-1.3); TOT PROT 6.7 g/dl (6.4-8.2)
[2017-03-19] MEDS: TIOTROPIUM BROMIDE 18 MCG/INH (DEVICE W/ 5 CAPSULES) IH SCH (10:36)
[2017-03-19] MEDS: BUDESONIDE/FORMETEROL FUMARATE 160/4.5 mcg INHALER IH SCH ×2 (10:36→22:03)
[2017-03-19] MEDS: ASPIRIN COATED 81 MG TABLET.EC PO SCH (10:37)
[2017-03-19] MEDS: PRENATAL VITAMINS W/ FOLIC ACID TABLET (FP) PO SCH (10:37)
[2017-03-19] MEDS: METHYL SALICYLATE/MENTHOL OINT 30 GM TUBE TP SCH ×2 (10:37→22:48)
[2017-03-19] MEDS: amLODIPine BESYLATE 10 MG TABLET (FP) PO SCH (10:37)
[2017-03-19] MEDS: POTASSIUM CHLORIDE TABS 20 MEQ TABLET.ER (FP) PO SCH ×2 (10:37→17:10)
[2017-03-19] MEDS: HYDROCHLOROTHIAZIDE 25 MG TABLET (FP) PO SCH ×2 (10:37→22:04)
[2017-03-19] MEDS: FERROUS SO4 325 MG TABLET (FP) PO SCH (10:37)
[2017-03-19] MEDS: NICOTINE 21 MG/24 HOURS TOPICAL PATCH TD SCH (10:37)
--- NOTE | 2017-03-19 19:24 | PN ---
S Progress Note (SOAP) Subjective: Nausea, Diarrhea, Anxious, Interrupted Sleep, Tremors. Objective: PT. A & O X 3, OBSERVED AMBULATING ON UNIT. NO ACUTE DISTRESS. 03/19/17 19:21 Vital Signs Temperature 97.8 F 03/19/17 17:56 Pulse Rate 69 03/19/17 17:56 Respiratory Rate 16 03/19/17 17:56 Blood Pressure 140/88 03/19/17 17:56 O2 Sat by Pulse Oximetry (%) Laboratory Tests 03/17/17 03/17/17 03/17/17 07:00 07:00 07:00 WBC 3.8 L RBC 2.98 L D Hgb 10.4 L D Hct 31.6 L D MCV 106.1 H MCH 35.1 H MCHC 33.1 RDW 16.0 H D Plt Count 209 D MPV 8.6 Neutrophils % Lymphocytes % Monocytes % Eosinophils % Basophils % Sodium 148 H Potassium 3.2 L D Chloride 112 H Carbon Dioxide 24 Anion Gap 12 BUN 29 H D Creatinine 1.3 Creat Clearance w eGFR 57.75 POC Glucometer Random Glucose 130 H Calcium 8.7 Total Bilirubin 0.5 AST 108 H D ALT 89 H Alkaline Phosphatase 250 H D Total Protein 7.2 Albumin 3.7 Urine Color Urine Appearance Urine pH Ur Specific [place] Urine Protein Urine Glucose (UA) Urine Ketones Urine Blood Urine Nitrite Urine Bilirubin Urine Urobilinogen Ur Leukocyte Esterase RPR Titer Nonreactive 03/17/17 03/18/17 03/19/17 17:30 05:39 07:00 WBC 4.5 RBC 3.14 L Hgb 11.2 L Hct 32.9 L MCV 104.8 H MCH 35.6 H MCHC 34.0 RDW 15.7 Plt Count 196 MPV 8.8 Neutrophils % 55.7 Lymphocytes % 35.2 Monocytes % 5.9 Eosinophils % 2.3 D Basophils % 0.9 Sodium Potassium Chloride Carbon Dioxide Anion Gap BUN Creatinine Creat Clearance w eGFR POC Glucometer 116 Random Glucose Calcium Total Bilirubin AST ALT Alkaline Phosphatase Total Protein Albumin Urine Color Ltyellow Urine Appearance Clear Urine pH 5.0 Ur Specific [place] 1.016 Urine Protein Negative Urine Glucose (UA) Negative Urine Ketones Negative Urine Blood Negative Urine Nitrite Negative Urine Bilirubin Negative Urine Urobilinogen Negative Ur Leukocyte Esterase Negative RPR Titer 03/19/17 07:00 WBC RBC Hgb Hct MCV MCH MCHC RDW Plt Count MPV Neutrophils % Lymphocytes % Monocytes % Eosinophils % Basophils % Sodium 142 Potassium 3.8 Chloride 107 Carbon Dioxide 28 Anion Gap 7 L BUN 21 H D Creatinine 1.1 Creat Clearance w eGFR > 60 POC Glucometer Random Glucose 115 H Calcium 8.5 Total Bilirubin 0.3 D AST 105 H ALT 84 H Alkaline Phosphatase 266 H Total Protein 6.7 Albumin 3.4 Urine Color Urine Appearance Urine pH Ur Specific [place] Urine Protein Urine Glucose (UA) Urine Ketones Urine Blood Urine Nitrite Urine Bilirubin Urine Urobilinogen Ur Leukocyte Esterase RPR Titer LABS NOTED. Assessment: 03/19/17 19:22 WITHDRAWAL SYMPTOMS. Plan: CONTINUE DETOX.
[2017-03-19] MEDS: THIAMINE HCL 100 MG TABLET (FP) PO SCH (22:03)
[2017-03-19] MEDS: TAMSULOSIN HCL 0.4 MG CAP.ER.24H (FP) PO SCH (22:04)
[2017-03-19] MEDS: QUEtiapine FUMARATE 100 MG TABLET (FP) PO SCH (22:04)
[2017-03-19] MEDS: chlordiazePOXIDE HCL 10 MG CAPSULE PO SCH (22:04)
[2017-03-19] MEDS: ATORVASTATIN CA 20 MG TABLET (FP) PO SCH (22:04)
[2017-03-20] MEDS ORDERED: METHADONE HCL 40 MG DISPERSABLE TABLET ONE (04:47)
[2017-03-20] MEDS ORDERED: METHADONE HCL 10 MG TABLET ONE (04:47)
[2017-03-20] MEDS: DOCUSATE SODIUM 100 MG CAPSULE (FP) PO SCH (05:23)
[2017-03-20] MEDS: chlordiazePOXIDE HCL 10 MG CAPSULE PO SCH ×2 (05:23→10:40)
[2017-03-20] MEDS: METHADONE 40 MG, METHADONE 20 MG PO SCH (05:23)
[2017-03-20] MEDS: ASPIRIN COATED 81 MG TABLET.EC PO SCH (10:40)
[2017-03-20] MEDS: POTASSIUM CHLORIDE TABS 20 MEQ TABLET.ER (FP) PO SCH (10:40)
[2017-03-20] MEDS: BUDESONIDE/FORMETEROL FUMARATE 160/4.5 mcg INHALER IH SCH (10:40)
[2017-03-20] MEDS: PRENATAL VITAMINS W/ FOLIC ACID TABLET (FP) PO SCH (10:41)
[2017-03-20] MEDS: amLODIPine BESYLATE 10 MG TABLET (FP) PO SCH (10:41)
[2017-03-20] MEDS: METHYL SALICYLATE/MENTHOL OINT 30 GM TUBE TP SCH (10:41)
[2017-03-20] MEDS: FERROUS SO4 325 MG TABLET (FP) PO SCH (10:41)
[2017-03-20] MEDS: NICOTINE 21 MG/24 HOURS TOPICAL PATCH TD SCH (10:41)
[2017-03-20] MEDS: HYDROCHLOROTHIAZIDE 25 MG TABLET (FP) PO SCH (10:44)
[2017-03-20] MEDS: TIOTROPIUM BROMIDE 18 MCG/INH (DEVICE W/ 5 CAPSULES) IH SCH (11:46)
[2017-03-20 13:03] VITALS: BP 124/84; PULSE 83; TEMP 97.4
--- NOTE | 2017-03-20 13:42 | DS ---
[facility] Detox Discharge Summary Admission Date: 03/16/17 Discharge Date: 03/20/17 - History Present History: Alcohol Dependence, Opioid Dependence, MMTP Additional Comments: PATIENT GOING TO [facility] FOR AFTERCARE. PATIENT WAS DISCHARGED FROM DETOX UNIT TO BE TAKEN TO REHAB UNIT IN STABLE MEDICAL CONDITION. Pertinent Past History: COPD, History of Seizures (ETOH-Related), History of Enlarged Liver and Alcoholic Hepatitis, HTN, Hypercholesterolemia, GERD, MMTP, Weight Loss, Bipolar Disorder, Insomnia. - Physical Exam Results Vital Signs: Vital Signs Temperature 97.4 F L 03/20/17 13:02 Pulse Rate 83 03/20/17 13:02 Respiratory Rate 18 03/20/17 13:02 Blood Pressure 124/84 03/20/17 13:02 O2 Sat by Pulse Oximetry (%) Pertinent Admission Physical Exam Findings: WITHDRAWAL SYMPTOMS. Laboratory Tests 03/17/17 03/17/17 03/17/17 07:00 07:00 07:00 WBC 3.8 L RBC 2.98 L D Hgb 10.4 L D Hct 31.6 L D MCV 106.1 H MCH 35.1 H MCHC 33.1 RDW 16.0 H D Plt Count 209 D MPV 8.6 Neutrophils % Lymphocytes % Monocytes % Eosinophils % Basophils % Sodium 148 H Potassium 3.2 L D Chloride 112 H Carbon Dioxide 24 Anion Gap 12 BUN 29 H D Creatinine 1.3 Creat Clearance w eGFR 57.75 POC Glucometer Random Glucose 130 H Calcium 8.7 Total Bilirubin 0.5 AST 108 H D ALT 89 H Alkaline Phosphatase 250 H D Total Protein 7.2 Albumin 3.7 Urine Color Urine Appearance Urine pH Ur Specific [place] Urine Protein Urine Glucose (UA) Urine Ketones Urine Blood Urine Nitrite Urine Bilirubin Urine Urobilinogen Ur Leukocyte Esterase RPR Titer Nonreactive 03/17/17 03/18/17 03/19/17 17:30 05:39 07:00 WBC 4.5 RBC 3.14 L Hgb 11.2 L Hct 32.9 L MCV 104.8 H MCH 35.6 H MCHC 34.0 RDW 15.7 Plt Count 196 MPV 8.8 Neutrophils % 55.7 Lymphocytes % 35.2 Monocytes % 5.9 Eosinophils % 2.3 D Basophils % 0.9 Sodium Potassium Chloride Carbon Dioxide Anion Gap BUN Creatinine Creat Clearance w eGFR POC Glucometer 116 Random Glucose Calcium Total Bilirubin AST ALT Alkaline Phosphatase Total Protein Albumin Urine Color Ltyellow Urine Appearance Clear Urine pH 5.0 Ur Specific [place] 1.016 Urine Protein Negative Urine Glucose (UA) Negative Urine Ketones Negative Urine Blood Negative Urine Nitrite Negative Urine Bilirubin Negative Urine Urobilinogen Negative Ur Leukocyte Esterase Negative RPR Titer 03/19/17 07:00 WBC RBC Hgb Hct MCV MCH MCHC RDW Plt Count MPV Neutrophils % Lymphocytes % Monocytes % Eosinophils % Basophils % Sodium 142 Potassium 3.8 Chloride 107 Carbon Dioxide 28 Anion Gap 7 L BUN 21 H D Creatinine 1.1 Creat Clearance w eGFR > 60 POC Glucometer Random Glucose 115 H Calcium 8.5 Total Bilirubin 0.3 D AST 105 H ALT 84 H Alkaline Phosphatase 266 H Total Protein 6.7 Albumin 3.4 Urine Color Urine Appearance Urine pH Ur Specific [place] Urine Protein Urine Glucose (UA) Urine Ketones Urine Blood Urine Nitrite Urine Bilirubin Urine Urobilinogen Ur Leukocyte Esterase RPR Titer LABS NOTED. - Treatment Hospital Course: Detox Protocol Followed, Detoxed Safely, Responded well, Discharged Condition Good, Rehab Referral Accepted Patient has Accepted a Rehab Referral to: [facility]. - Medication Discharge Medications: Ambulatory Orders Testosterone [Androgel -] 25 mg TP DAILY 09/26/14 Albuterol Sulfate Inhaler - [Ventolin HFA Inhaler -] 2 inh IH Q4H PRN #1 inh 12/26 Dextran 70/Hypromellose [Artificial Tears Eye Drops] 1 drop OP DAILY 09/06/16 Docusate Sodium [Colace -] 100 mg PO TID 09/06/16 Mineral Oil/Petrolatum,White [Advanced Eye Relief Opth Oint] 3.5 gm OP HS Multivitamins [Tab-A-Vit -] 1 tab PO DAILY 09/06/16 Amlodipine Besylate [Norvasc -] 10 mg PO DAILY #30 tab 09/23/16 Aspirin [Aspirin EC] 81 mg PO DAILY #30 tablet. 09/23/16 Atorvastatin Ca [Lipitor] 20 mg PO HS #30 tablet 09/23/16 Budesonide/Formeterol Fumarate [SYMBICORT 160/4.5mcg -] 1 inh PO BID #1 inh Cyanocobalamin [Vitamin B12 -] 100 mcg PO DAILY #30 tab 09/23/16 Famotidine 20 mg PO BID #60 tab 09/23/16 Ferrous Sulfate [Feosol] 325 mg PO DAILY #90 ud 09/23/16 Hydrochlorothiazide 25 mg PO BID #60 tab 09/23/16 Losartan Potassium [Cozaar -] 50 mg PO BID #60 tab 09/23/16 Tamsulosin HCl [Flomax -] 0.4 mg PO HS #30 tab 09/23/16 Tiotropium [place] [Spiriva Respimat] 2.5 mcg IH DAILY #1 inh 09/23/16 Quetiapine Fumarate [Seroquel] 200 mg PO BID 01/31/17 Quetiapine Fumarate [Seroquel -] 200 mg PO HS #30 tab 03/18/17 - Diagnosis (1) Alcohol dependence with uncomplicated withdrawal Status: Acute (2) Methadone maintenance therapy patient Status: Chronic (3) Insomnia Status: Acute Qualifiers: Insomnia type: unspecified Qualified Code(s): G47.00 - Insomnia, unspecified (4) Nicotine dependence Status: Acute Qualifiers: Nicotine product type: cigarettes Substance use status: in withdrawal Qualified Code(s): F17.213 - Nicotine dependence, cigarettes, with withdrawal (5) Opioid dependence on agonist therapy Status: Chronic (6) Alcohol dependence with uncomplicated withdrawal Status: Acute (7) COPD (chronic obstructive pulmonary disease) Status: Chronic Qualifiers: COPD type: emphysema Emphysema type: unspecified Qualified Code(s): J43.9 - Emphysema, unspecified (8) GERD (gastroesophageal reflux disease) Status: Chronic Qualifiers: Esophagitis presence: without esophagitis Qualified Code(s): K21.9 - Gastro -esophageal reflux disease without esophagitis (9) Hypercholesteremia Status: Chronic (10) Hypertension Status: Chronic Qualifiers: Hypertension type: essential hypertension Qualified Code(s): I10 - Essential (primary) hypertension (11) Drug-induced mood disorder Status: Acute - AMA Did Patient Leave Against Medical Advice: No
== END 2017-03-20 13:12 | disposition other institution (70) | DRG 773 ==
LOC: YASAS 15:03 → Y3N 23:03
PROVIDERS: ADMIT Internal Medicine; ATTEND Internal Medicine
PROC: HZ2ZZZZ Detoxification Services for Substance Abuse Treatment (ICD-10-PCS; principal; 2017-03-16)
DX: F11.20 Opioid dependence, uncomplicated (principal); F10.230 Alcohol dependence with withdrawal, uncomplicated; F17.210 Nicotine dependence, cigarettes, uncomplicated; F31.9 Bipolar disorder, unspecified; K70.10 Alcoholic hepatitis without ascites; F19.24 Other psychoactive substance dependence with psychoactive substance-induced mood disorder; I10 Essential (primary) hypertension; J43.9 Emphysema, unspecified; F10.982 Alcohol use, unspecified with alcohol-induced sleep disorder; K21.9 Gastro-esophageal reflux disease without esophagitis; E78.00 Pure hypercholesterolemia, unspecified; G47.00 Insomnia, unspecified; N40.0 Benign prostatic hyperplasia without lower urinary tract symptoms; R63.4 Abnormal weight loss; Z68.22 Body mass index [BMI] 22.0-22.9, adult
CPT/HCPCS: 36415; 80053; 81003; 85025; 85027; 86593; 93005; 93010

== ENCOUNTER 2017-03-20 13:45 | Inpatient (IN) | payer OTHER ==
[2017-03-20 14:25] VITALS: BMI 22.1
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
[2017-03-20] MEDS ORDERED: MENTHOL/PHENOL 1 EACH UD MM PRN (15:15)
[2017-03-20] MEDS ORDERED: MAGNESIUM CITRATE 300 ML BOTTLE PO PRN (15:15)
[2017-03-20] MEDS ORDERED: MAGNESIUM HYDROX 2400MG/30ML ORAL SUSPENSION 30 ML CUP PO PRN (15:15)
[2017-03-20] MEDS ORDERED: ACETAMINOPHEN 325 MG TABLET (FP) PO PRN (15:15)
[2017-03-20] MEDS ORDERED: LOPERAMIDE HCL 2 MG CAPSULE PO PRN (15:15)
[2017-03-20] MEDS ORDERED: guaiFENesin/D-METHORPHAN HB 10 ML UNIT-DOSE CUPS PO PRN (15:15)
[2017-03-20] MEDS ORDERED: P-EPHED 60MG/TRIPROLIDI 2.5MG TABLET PO PRN (15:15)
[2017-03-20] MEDS ORDERED: NICOTINE POLACRILEX 2 MG GUM BUC PRN (15:15)
[2017-03-20] MEDS ORDERED: ALBUTEROL SO4 18 GM HFA INHALER IH PRN (15:17)
--- NOTE | 2017-03-20 15:19 | HP ---
[facility] Rehab Assess/Revision - Admission History Admitted to Rehab from: [facility] Date of Admission to Rehab: 03/20/2017 - Vital signs Vital Signs: Vital Signs Period Temp Pulse Resp BP Sys/Lopez Pulse Ox Last 24 Hr 98.4 F 88 20 124/82 - Findings Detox History & Physical reviewed: Yes Concur with findings: Yes Inpatient Rehab Admission - Initial Determination Are CD services needed?: Yes Free of communicable disease: Yes Not in need of hospitalization: Yes - Rehab Admission Criteria Comorbidities: Yes Patient is meeting Inpatient Rehab admission criteria:: Yes
[2017-03-20] MEDS ORDERED: PT OWN MED DRAWER 7, Y5N ONE (15:52)
[2017-03-20] MEDS ORDERED: ARTIFICIAL TEARS (POLYVINYL ALCOHOL 1.4%) OPTH DROPS OU PRN (17:33)
[2017-03-20] MEDS: ARTIFICIAL TEARS (POLYVINYL ALCOHOL 1.4%) OPTH DROPS OU PRN (21:15)
[2017-03-20] MEDS: BUDESONIDE/FORMETEROL FUMARATE 160/4.5 mcg INHALER IH SCH (21:15)
[2017-03-20] MEDS: LOSARTAN POTASSIUM 50 MG TABLET (FP) PO SCH (21:16)
[2017-03-20] MEDS: HYDROCHLOROTHIAZIDE 25 MG TABLET (FP) PO SCH (21:16)
[2017-03-20] MEDS: THIAMINE HCL 100 MG TABLET (FP) PO SCH (21:16)
[2017-03-20] MEDS: TAMSULOSIN HCL 0.4 MG CAP.ER.24H (FP) PO SCH (21:16)
[2017-03-20] MEDS: ATORVASTATIN CA 20 MG TABLET (FP) PO SCH (21:16)
[2017-03-20] MEDS: QUEtiapine FUMARATE 200 MG TABLET PO SCH (21:17)
[2017-03-20] MEDS: MINERAL OIL/PETROLATUM,WHITE 3.5 GM TUBE OU SCH (21:18)
[2017-03-20] MEDS ORDERED: POTASSIUM CHLORIDE TABS 20 MEQ TABLET.ER (FP) PO SCH (22:00)
[2017-03-21] MEDS ORDERED: METHADONE HCL 10 MG TABLET ONE (04:14)
[2017-03-21] MEDS ORDERED: METHADONE HCL 40 MG DISPERSABLE TABLET ONE (04:14)
[2017-03-21] MEDS ORDERED: METHADONE HCL 10 MG TABLET PO SCH (06:00)
[2017-03-21] MEDS: METHADONE 40 MG, METHADONE 20 MG PO SCH (06:26)
[2017-03-21] MEDS: PRENATAL VITAMINS W/ FOLIC ACID TABLET (FP) PO SCH (09:31)
[2017-03-21] MEDS: LOSARTAN POTASSIUM 50 MG TABLET (FP) PO SCH ×2 (09:31→21:04)
[2017-03-21] MEDS: amLODIPine BESYLATE 10 MG TABLET (FP) PO SCH (09:31)
[2017-03-21] MEDS: ASPIRIN COATED 81 MG TABLET.EC PO SCH (09:31)
[2017-03-21] MEDS: HYDROCHLOROTHIAZIDE 25 MG TABLET (FP) PO SCH ×2 (09:31→21:04)
[2017-03-21] MEDS: BUDESONIDE/FORMETEROL FUMARATE 160/4.5 mcg INHALER IH SCH ×2 (09:32→21:05)
[2017-03-21] MEDS: TIOTROPIUM BROMIDE 18 MCG/INH (DEVICE W/ 5 CAPSULES) IH SCH (09:32)
[2017-03-21] MEDS ORDERED: NICOTINE 14 MG/24 HOURS TOPICAL PATCH TD SCH (10:00)
[2017-03-21] MEDS ORDERED: FLU VACCINE QUAD 60 MCG/0.5 ML (MDV 17-18) IM ONE (12:00)
[2017-03-21] MEDS: NICOTINE 21 MG/24 HOURS TOPICAL PATCH TD SCH (12:47)
[2017-03-21] MEDS: IBUPROFEN 400 MG TABLET (FP) PO PRN (21:02)
[2017-03-21] MEDS: QUEtiapine FUMARATE 200 MG TABLET PO SCH (21:04)
[2017-03-21] MEDS: ATORVASTATIN CA 20 MG TABLET (FP) PO SCH (21:04)
[2017-03-21] MEDS: THIAMINE HCL 100 MG TABLET (FP) PO SCH (21:04)
[2017-03-21] MEDS: TAMSULOSIN HCL 0.4 MG CAP.ER.24H (FP) PO SCH (21:04)
[2017-03-21] MEDS: MINERAL OIL/PETROLATUM,WHITE 3.5 GM TUBE OU SCH (21:04)
[2017-03-22] MEDS ORDERED: METHADONE HCL 10 MG TABLET ONE (04:09)
[2017-03-22] MEDS ORDERED: METHADONE HCL 40 MG DISPERSABLE TABLET ONE (04:09)
[2017-03-22] MEDS: METHADONE 40 MG, METHADONE 20 MG PO SCH (06:13)
[2017-03-22] MEDS: ASPIRIN COATED 81 MG TABLET.EC PO SCH (10:29)
[2017-03-22] MEDS: LOSARTAN POTASSIUM 50 MG TABLET (FP) PO SCH ×2 (10:29→21:10)
[2017-03-22] MEDS: PRENATAL VITAMINS W/ FOLIC ACID TABLET (FP) PO SCH (10:29)
[2017-03-22] MEDS: HYDROCHLOROTHIAZIDE 25 MG TABLET (FP) PO SCH ×2 (10:29→21:09)
[2017-03-22] MEDS: BUDESONIDE/FORMETEROL FUMARATE 160/4.5 mcg INHALER IH SCH ×2 (10:29→21:09)
[2017-03-22] MEDS: amLODIPine BESYLATE 10 MG TABLET (FP) PO SCH (10:29)
[2017-03-22] MEDS: NICOTINE 21 MG/24 HOURS TOPICAL PATCH TD SCH (10:31)
[2017-03-22] MEDS: TIOTROPIUM BROMIDE 18 MCG/INH (DEVICE W/ 5 CAPSULES) IH SCH (10:31)
[2017-03-22] MEDS: IBUPROFEN 400 MG TABLET (FP) PO PRN (10:33)
[2017-03-22] MEDS: THIAMINE HCL 100 MG TABLET (FP) PO SCH (21:09)
[2017-03-22] MEDS: QUEtiapine FUMARATE 200 MG TABLET PO SCH (21:09)
[2017-03-22] MEDS: MINERAL OIL/PETROLATUM,WHITE 3.5 GM TUBE OU SCH (21:10)
[2017-03-22] MEDS: ATORVASTATIN CA 20 MG TABLET (FP) PO SCH (21:10)
[2017-03-22] MEDS: TAMSULOSIN HCL 0.4 MG CAP.ER.24H (FP) PO SCH (21:10)
[2017-03-23] MEDS ORDERED: METHADONE HCL 40 MG DISPERSABLE TABLET ONE (03:19)
[2017-03-23] MEDS ORDERED: METHADONE HCL 10 MG TABLET ONE (03:19)
[2017-03-23] MEDS: METHADONE 40 MG, METHADONE 20 MG PO SCH (06:26)
[2017-03-23] MEDS: HYDROCHLOROTHIAZIDE 25 MG TABLET (FP) PO SCH (09:49)
[2017-03-23] MEDS: amLODIPine BESYLATE 10 MG TABLET (FP) PO SCH (09:49)
[2017-03-23] MEDS: LOSARTAN POTASSIUM 50 MG TABLET (FP) PO SCH ×2 (09:49→21:13)
[2017-03-23] MEDS: TIOTROPIUM BROMIDE 18 MCG/INH (DEVICE W/ 5 CAPSULES) IH SCH (09:49)
[2017-03-23] MEDS: NICOTINE 21 MG/24 HOURS TOPICAL PATCH TD SCH (09:49)
[2017-03-23] MEDS: PRENATAL VITAMINS W/ FOLIC ACID TABLET (FP) PO SCH (09:49)
[2017-03-23] MEDS: ASPIRIN COATED 81 MG TABLET.EC PO SCH (09:49)
[2017-03-23] MEDS: BUDESONIDE/FORMETEROL FUMARATE 160/4.5 mcg INHALER IH SCH ×2 (09:50→21:12)
[2017-03-23] MEDS: ARTIFICIAL TEARS (POLYVINYL ALCOHOL 1.4%) OPTH DROPS OU PRN (09:55)
[2017-03-23] MEDS: MAG HYDROX/AL HYDROX/SIMETH 30 ML UNIT-DOSE CUP PO PRN (17:02)
[2017-03-23] MEDS: QUEtiapine FUMARATE 200 MG TABLET PO SCH (21:13)
[2017-03-23] MEDS: TAMSULOSIN HCL 0.4 MG CAP.ER.24H (FP) PO SCH (21:13)
[2017-03-23] MEDS: THIAMINE HCL 100 MG TABLET (FP) PO SCH (21:13)
[2017-03-23] MEDS: ATORVASTATIN CA 20 MG TABLET (FP) PO SCH (21:13)
[2017-03-23] MEDS: MINERAL OIL/PETROLATUM,WHITE 3.5 GM TUBE OU SCH (21:14)
[2017-03-23] MEDS: METHYL SALICYLATE/MENTHOL OINT 30 GM TUBE TP SCH (21:14)
[2017-03-24] MEDS ORDERED: METHADONE HCL 40 MG DISPERSABLE TABLET ONE (04:18)
[2017-03-24] MEDS ORDERED: METHADONE HCL 10 MG TABLET ONE (04:18)
[2017-03-24] MEDS: METHADONE 40 MG, METHADONE 20 MG PO SCH (06:10)
[2017-03-24] MEDS: BUDESONIDE/FORMETEROL FUMARATE 160/4.5 mcg INHALER IH SCH ×2 (09:45→21:17)
[2017-03-24] MEDS: TIOTROPIUM BROMIDE 18 MCG/INH (DEVICE W/ 5 CAPSULES) IH SCH (09:45)
[2017-03-24] MEDS: HYDROCHLOROTHIAZIDE 25 MG TABLET (FP) PO SCH (09:46)
[2017-03-24] MEDS: NICOTINE 21 MG/24 HOURS TOPICAL PATCH TD SCH (09:46)
[2017-03-24] MEDS: LOSARTAN POTASSIUM 50 MG TABLET (FP) PO SCH ×2 (09:46→21:14)
[2017-03-24] MEDS: amLODIPine BESYLATE 10 MG TABLET (FP) PO SCH (09:46)
[2017-03-24] MEDS: ASPIRIN COATED 81 MG TABLET.EC PO SCH (09:46)
[2017-03-24] MEDS: METHYL SALICYLATE/MENTHOL OINT 30 GM TUBE TP SCH ×2 (09:47→21:16)
[2017-03-24] MEDS: PRENATAL VITAMINS W/ FOLIC ACID TABLET (FP) PO SCH (09:47)
[2017-03-24] MEDS: MINERAL OIL/PETROLATUM,WHITE 3.5 GM TUBE OU SCH (21:14)
[2017-03-24] MEDS: THIAMINE HCL 100 MG TABLET (FP) PO SCH (21:14)
[2017-03-24] MEDS: QUEtiapine FUMARATE 200 MG TABLET PO SCH (21:14)
[2017-03-24] MEDS: ATORVASTATIN CA 20 MG TABLET (FP) PO SCH (21:14)
[2017-03-24] MEDS: TAMSULOSIN HCL 0.4 MG CAP.ER.24H (FP) PO SCH (21:14)
[2017-03-25] MEDS ORDERED: METHADONE HCL 40 MG DISPERSABLE TABLET ONE (04:31)
[2017-03-25] MEDS ORDERED: METHADONE HCL 10 MG TABLET ONE (04:31)
[2017-03-25] MEDS: METHADONE 40 MG, METHADONE 20 MG PO SCH (06:12)
[2017-03-25] MEDS: ARTIFICIAL TEARS (POLYVINYL ALCOHOL 1.4%) OPTH DROPS OU PRN (09:52)
[2017-03-25] MEDS: TIOTROPIUM BROMIDE 18 MCG/INH (DEVICE W/ 5 CAPSULES) IH SCH (09:52)
[2017-03-25] MEDS: BUDESONIDE/FORMETEROL FUMARATE 160/4.5 mcg INHALER IH SCH ×2 (09:52→21:04)
[2017-03-25] MEDS: ASPIRIN COATED 81 MG TABLET.EC PO SCH (09:52)
[2017-03-25] MEDS: PRENATAL VITAMINS W/ FOLIC ACID TABLET (FP) PO SCH (09:52)
[2017-03-25] MEDS: METHYL SALICYLATE/MENTHOL OINT 30 GM TUBE TP SCH ×2 (09:53→21:03)
[2017-03-25] MEDS: HYDROCHLOROTHIAZIDE 25 MG TABLET (FP) PO SCH (09:53)
[2017-03-25] MEDS: LOSARTAN POTASSIUM 50 MG TABLET (FP) PO SCH ×2 (09:53→21:05)
[2017-03-25] MEDS: NICOTINE 21 MG/24 HOURS TOPICAL PATCH TD SCH (09:53)
[2017-03-25] MEDS: amLODIPine BESYLATE 10 MG TABLET (FP) PO SCH (09:53)
[2017-03-25] MEDS: IBUPROFEN 400 MG TABLET (FP) PO PRN (12:20)
[2017-03-25] MEDS: THIAMINE HCL 100 MG TABLET (FP) PO SCH (21:04)
[2017-03-25] MEDS: MINERAL OIL/PETROLATUM,WHITE 3.5 GM TUBE OU SCH (21:04)
[2017-03-25] MEDS: ATORVASTATIN CA 20 MG TABLET (FP) PO SCH (21:05)
[2017-03-25] MEDS: TAMSULOSIN HCL 0.4 MG CAP.ER.24H (FP) PO SCH (21:05)
[2017-03-25] MEDS: QUEtiapine FUMARATE 200 MG TABLET PO SCH (21:05)
[2017-03-26] MEDS ORDERED: METHADONE HCL 40 MG DISPERSABLE TABLET ONE (04:28)
[2017-03-26] MEDS ORDERED: METHADONE HCL 10 MG TABLET ONE (04:28)
[2017-03-26] MEDS: METHADONE 40 MG, METHADONE 20 MG PO SCH (06:03)
[2017-03-26] MEDS: PRENATAL VITAMINS W/ FOLIC ACID TABLET (FP) PO SCH (10:22)
[2017-03-26] MEDS: LOSARTAN POTASSIUM 50 MG TABLET (FP) PO SCH ×2 (10:22→21:37)
[2017-03-26] MEDS: NICOTINE 21 MG/24 HOURS TOPICAL PATCH TD SCH (10:22)
[2017-03-26] MEDS: amLODIPine BESYLATE 10 MG TABLET (FP) PO SCH (10:22)
[2017-03-26] MEDS: HYDROCHLOROTHIAZIDE 25 MG TABLET (FP) PO SCH (10:22)
[2017-03-26] MEDS: ASPIRIN COATED 81 MG TABLET.EC PO SCH (10:22)
[2017-03-26] MEDS: TIOTROPIUM BROMIDE 18 MCG/INH (DEVICE W/ 5 CAPSULES) IH SCH (10:24)
[2017-03-26] MEDS: BUDESONIDE/FORMETEROL FUMARATE 160/4.5 mcg INHALER IH SCH ×2 (10:24→21:39)
[2017-03-26] MEDS ORDERED: PT OWN MED DRAWER 7, Y5N ONE ×3 (10:25→21:41)
[2017-03-26] MEDS: METHYL SALICYLATE/MENTHOL OINT 30 GM TUBE TP SCH ×2 (10:26→21:37)
[2017-03-26] MEDS: CYCLOBENZAPRINE HCL 10 MG TABLET (FP) PO SCH ×2 (14:46→21:37)
[2017-03-26] MEDS: PANTOPRAZOLE 40 MG TABLET (FP) PO SCH (14:46)
[2017-03-26] MEDS: LIDOCAINE 5% TOPICAL PATCH TP SCH (14:47)
[2017-03-26] MEDS: NAPROXEN 500 MG TABLET (FP) PO SCH ×2 (14:47→21:36)
[2017-03-26] MEDS: ATORVASTATIN CA 20 MG TABLET (FP) PO SCH (21:36)
[2017-03-26] MEDS: THIAMINE HCL 100 MG TABLET (FP) PO SCH (21:36)
[2017-03-26] MEDS: TAMSULOSIN HCL 0.4 MG CAP.ER.24H (FP) PO SCH (21:37)
[2017-03-26] MEDS: QUEtiapine FUMARATE 200 MG TABLET PO SCH (21:37)
[2017-03-26] MEDS: LIDOCAINE PATCH REMOVAL MC SCH (21:38)
[2017-03-26] MEDS: ARTIFICIAL TEARS (POLYVINYL ALCOHOL 1.4%) OPTH DROPS OU PRN (21:39)
[2017-03-26] MEDS: MINERAL OIL/PETROLATUM,WHITE 3.5 GM TUBE OU SCH (21:40)
[2017-03-27] MEDS ORDERED: METHADONE HCL 40 MG DISPERSABLE TABLET ONE (04:40)
[2017-03-27] MEDS ORDERED: METHADONE HCL 10 MG TABLET ONE (04:40)
[2017-03-27] MEDS ORDERED: METHADONE HCL 10 MG TABLET PO SCH (06:00)
[2017-03-27] MEDS: CYCLOBENZAPRINE HCL 10 MG TABLET (FP) PO SCH ×3 (06:03→21:12)
[2017-03-27] MEDS: METHADONE 40 MG, METHADONE 20 MG PO SCH (06:03)
[2017-03-27] MEDS: LOSARTAN POTASSIUM 50 MG TABLET (FP) PO SCH ×2 (09:41→21:12)
[2017-03-27] MEDS: ASPIRIN COATED 81 MG TABLET.EC PO SCH (09:41)
[2017-03-27] MEDS: amLODIPine BESYLATE 10 MG TABLET (FP) PO SCH (09:41)
[2017-03-27] MEDS: PRENATAL VITAMINS W/ FOLIC ACID TABLET (FP) PO SCH (09:41)
[2017-03-27] MEDS: HYDROCHLOROTHIAZIDE 25 MG TABLET (FP) PO SCH (09:41)
[2017-03-27] MEDS: NAPROXEN 500 MG TABLET (FP) PO SCH ×2 (09:41→21:12)
[2017-03-27] MEDS: TIOTROPIUM BROMIDE 18 MCG/INH (DEVICE W/ 5 CAPSULES) IH SCH (09:43)
[2017-03-27] MEDS: BUDESONIDE/FORMETEROL FUMARATE 160/4.5 mcg INHALER IH SCH ×2 (09:43→21:12)
[2017-03-27] MEDS: LIDOCAINE 5% TOPICAL PATCH TP SCH (09:43)
[2017-03-27] MEDS: METHYL SALICYLATE/MENTHOL OINT 30 GM TUBE TP SCH ×2 (09:43→22:00)
[2017-03-27] MEDS: PANTOPRAZOLE 40 MG TABLET (FP) PO SCH (09:43)
[2017-03-27] MEDS: NICOTINE 21 MG/24 HOURS TOPICAL PATCH TD SCH (09:44)
[2017-03-27] MEDS: MAG HYDROX/AL HYDROX/SIMETH 30 ML UNIT-DOSE CUP PO PRN (12:49)
[2017-03-27] MEDS: QUEtiapine FUMARATE 200 MG TABLET PO SCH (21:12)
[2017-03-27] MEDS: THIAMINE HCL 100 MG TABLET (FP) PO SCH (21:12)
[2017-03-27] MEDS: ATORVASTATIN CA 20 MG TABLET (FP) PO SCH (21:12)
[2017-03-27] MEDS: TAMSULOSIN HCL 0.4 MG CAP.ER.24H (FP) PO SCH (21:12)
[2017-03-27] MEDS: LIDOCAINE PATCH REMOVAL MC SCH (21:13)
[2017-03-27] MEDS: hydrOXYzine PAMOATE 50 MG CAPSULE (FP) PO PRN (21:14)
[2017-03-27] MEDS: MINERAL OIL/PETROLATUM,WHITE 3.5 GM TUBE OU SCH (22:00)
[2017-03-28] MEDS ORDERED: METHADONE HCL 10 MG TABLET ONE (05:10)
[2017-03-28] MEDS ORDERED: METHADONE HCL 40 MG DISPERSABLE TABLET ONE (05:11)
[2017-03-28] MEDS: CYCLOBENZAPRINE HCL 10 MG TABLET (FP) PO SCH ×3 (06:29→21:26)
[2017-03-28] MEDS: METHADONE 40 MG, METHADONE 20 MG PO SCH (06:29)
[2017-03-28] MEDS ORDERED: PT OWN MED DRAWER 7, Y5N ONE (08:12)
[2017-03-28] MEDS: NAPROXEN 500 MG TABLET (FP) PO SCH ×2 (09:37→21:26)
[2017-03-28] MEDS: PRENATAL VITAMINS W/ FOLIC ACID TABLET (FP) PO SCH (09:37)
[2017-03-28] MEDS: NICOTINE 21 MG/24 HOURS TOPICAL PATCH TD SCH (09:37)
[2017-03-28] MEDS: LIDOCAINE 5% TOPICAL PATCH TP SCH (09:37)
[2017-03-28] MEDS: ASPIRIN COATED 81 MG TABLET.EC PO SCH (09:37)
[2017-03-28] MEDS: HYDROCHLOROTHIAZIDE 25 MG TABLET (FP) PO SCH (09:37)
[2017-03-28] MEDS: PANTOPRAZOLE 40 MG TABLET (FP) PO SCH (09:37)
[2017-03-28] MEDS: BUDESONIDE/FORMETEROL FUMARATE 160/4.5 mcg INHALER IH SCH ×2 (09:37→21:27)
[2017-03-28] MEDS: TIOTROPIUM BROMIDE 18 MCG/INH (DEVICE W/ 5 CAPSULES) IH SCH (09:37)
[2017-03-28] MEDS: LOSARTAN POTASSIUM 50 MG TABLET (FP) PO SCH ×2 (09:37→21:26)
[2017-03-28] MEDS: amLODIPine BESYLATE 10 MG TABLET (FP) PO SCH (09:38)
[2017-03-28] MEDS: METHYL SALICYLATE/MENTHOL OINT 30 GM TUBE TP SCH ×2 (09:39→21:26)
[2017-03-28] MEDS: MINERAL OIL/PETROLATUM,WHITE 3.5 GM TUBE OU SCH (21:25)
[2017-03-28] MEDS: THIAMINE HCL 100 MG TABLET (FP) PO SCH (21:26)
[2017-03-28] MEDS: TAMSULOSIN HCL 0.4 MG CAP.ER.24H (FP) PO SCH (21:26)
[2017-03-28] MEDS: QUEtiapine FUMARATE 200 MG TABLET PO SCH (21:26)
[2017-03-28] MEDS: ATORVASTATIN CA 20 MG TABLET (FP) PO SCH (21:26)
[2017-03-28] MEDS: LIDOCAINE PATCH REMOVAL MC SCH (21:27)
[2017-03-28] MEDS: hydrOXYzine PAMOATE 50 MG CAPSULE (FP) PO PRN (21:28)
[2017-03-29] MEDS ORDERED: METHADONE HCL 10 MG TABLET ONE (05:21)
[2017-03-29] MEDS ORDERED: METHADONE HCL 40 MG DISPERSABLE TABLET ONE (05:21)
[2017-03-29] MEDS: CYCLOBENZAPRINE HCL 10 MG TABLET (FP) PO SCH ×3 (06:33→21:06)
[2017-03-29] MEDS: METHADONE 40 MG, METHADONE 20 MG PO SCH (06:34)
[2017-03-29] MEDS: TIOTROPIUM BROMIDE 18 MCG/INH (DEVICE W/ 5 CAPSULES) IH SCH (09:42)
[2017-03-29] MEDS: NICOTINE 21 MG/24 HOURS TOPICAL PATCH TD SCH (09:42)
[2017-03-29] MEDS: LIDOCAINE 5% TOPICAL PATCH TP SCH (09:42)
[2017-03-29] MEDS: BUDESONIDE/FORMETEROL FUMARATE 160/4.5 mcg INHALER IH SCH ×2 (09:42→21:06)
[2017-03-29] MEDS: amLODIPine BESYLATE 10 MG TABLET (FP) PO SCH (09:43)
[2017-03-29] MEDS: PRENATAL VITAMINS W/ FOLIC ACID TABLET (FP) PO SCH (09:43)
[2017-03-29] MEDS: LOSARTAN POTASSIUM 50 MG TABLET (FP) PO SCH ×2 (09:43→21:06)
[2017-03-29] MEDS: ASPIRIN COATED 81 MG TABLET.EC PO SCH (09:43)
[2017-03-29] MEDS: METHYL SALICYLATE/MENTHOL OINT 30 GM TUBE TP SCH ×2 (09:43→21:05)
[2017-03-29] MEDS: NAPROXEN 500 MG TABLET (FP) PO SCH ×2 (09:43→21:06)
[2017-03-29] MEDS: PANTOPRAZOLE 40 MG TABLET (FP) PO SCH (09:43)
[2017-03-29] MEDS: HYDROCHLOROTHIAZIDE 25 MG TABLET (FP) PO SCH (09:43)
[2017-03-29] MEDS: TAMSULOSIN HCL 0.4 MG CAP.ER.24H (FP) PO SCH (21:05)
[2017-03-29] MEDS: THIAMINE HCL 100 MG TABLET (FP) PO SCH (21:05)
[2017-03-29] MEDS: hydrOXYzine PAMOATE 50 MG CAPSULE (FP) PO PRN (21:06)
[2017-03-29] MEDS: ATORVASTATIN CA 20 MG TABLET (FP) PO SCH (21:06)
[2017-03-29] MEDS: QUEtiapine FUMARATE 200 MG TABLET PO SCH (21:06)
[2017-03-29] MEDS: MINERAL OIL/PETROLATUM,WHITE 3.5 GM TUBE OU SCH (21:07)
[2017-03-29] MEDS: LIDOCAINE PATCH REMOVAL MC SCH (22:00)
[2017-03-30] MEDS ORDERED: METHADONE HCL 40 MG DISPERSABLE TABLET ONE (03:56)
[2017-03-30] MEDS ORDERED: METHADONE HCL 10 MG TABLET ONE (03:56)
[2017-03-30] MEDS: METHADONE 40 MG, METHADONE 20 MG PO SCH (06:26)
[2017-03-30] MEDS: CYCLOBENZAPRINE HCL 10 MG TABLET (FP) PO SCH ×3 (06:26→21:18)
[2017-03-30] MEDS: BUDESONIDE/FORMETEROL FUMARATE 160/4.5 mcg INHALER IH SCH ×2 (09:51→21:20)
[2017-03-30] MEDS: HYDROCHLOROTHIAZIDE 25 MG TABLET (FP) PO SCH (09:52)
[2017-03-30] MEDS: ASPIRIN COATED 81 MG TABLET.EC PO SCH (09:52)
[2017-03-30] MEDS: TIOTROPIUM BROMIDE 18 MCG/INH (DEVICE W/ 5 CAPSULES) IH SCH (09:52)
[2017-03-30] MEDS: NICOTINE 21 MG/24 HOURS TOPICAL PATCH TD SCH (09:52)
[2017-03-30] MEDS: PRENATAL VITAMINS W/ FOLIC ACID TABLET (FP) PO SCH (09:53)
[2017-03-30] MEDS: PANTOPRAZOLE 40 MG TABLET (FP) PO SCH (09:53)
[2017-03-30] MEDS: LOSARTAN POTASSIUM 50 MG TABLET (FP) PO SCH ×2 (09:53→21:18)
[2017-03-30] MEDS: amLODIPine BESYLATE 10 MG TABLET (FP) PO SCH (09:53)
[2017-03-30] MEDS: LIDOCAINE 5% TOPICAL PATCH TP SCH (09:53)
[2017-03-30] MEDS: METHYL SALICYLATE/MENTHOL OINT 30 GM TUBE TP SCH ×2 (09:53→21:21)
[2017-03-30] MEDS: NAPROXEN 500 MG TABLET (FP) PO SCH ×2 (09:53→21:22)
[2017-03-30] MEDS: ATORVASTATIN CA 20 MG TABLET (FP) PO SCH (21:18)
[2017-03-30] MEDS: QUEtiapine FUMARATE 200 MG TABLET PO SCH (21:18)
[2017-03-30] MEDS: TAMSULOSIN HCL 0.4 MG CAP.ER.24H (FP) PO SCH (21:18)
[2017-03-30] MEDS: THIAMINE HCL 100 MG TABLET (FP) PO SCH (21:18)
[2017-03-30] MEDS: hydrOXYzine PAMOATE 50 MG CAPSULE (FP) PO PRN (21:19)
[2017-03-30] MEDS: MINERAL OIL/PETROLATUM,WHITE 3.5 GM TUBE OU SCH (21:20)
[2017-03-30] MEDS: LIDOCAINE PATCH REMOVAL MC SCH (21:21)
[2017-03-31] MEDS ORDERED: METHADONE HCL 10 MG TABLET ONE (03:56)
[2017-03-31] MEDS ORDERED: METHADONE HCL 40 MG DISPERSABLE TABLET ONE (03:57)
[2017-03-31] MEDS: METHADONE 40 MG, METHADONE 20 MG PO SCH (06:18)
[2017-03-31] MEDS: CYCLOBENZAPRINE HCL 10 MG TABLET (FP) PO SCH ×3 (06:18→21:36)
[2017-03-31] MEDS: PRENATAL VITAMINS W/ FOLIC ACID TABLET (FP) PO SCH (10:04)
[2017-03-31] MEDS: TIOTROPIUM BROMIDE 18 MCG/INH (DEVICE W/ 5 CAPSULES) IH SCH (10:04)
[2017-03-31] MEDS: METHYL SALICYLATE/MENTHOL OINT 30 GM TUBE TP SCH ×2 (10:05→22:25)
[2017-03-31] MEDS: LOSARTAN POTASSIUM 50 MG TABLET (FP) PO SCH ×2 (10:05→21:37)
[2017-03-31] MEDS: NAPROXEN 500 MG TABLET (FP) PO SCH ×2 (10:05→21:36)
[2017-03-31] MEDS: ASPIRIN COATED 81 MG TABLET.EC PO SCH (10:05)
[2017-03-31] MEDS: PANTOPRAZOLE 40 MG TABLET (FP) PO SCH (10:05)
[2017-03-31] MEDS: HYDROCHLOROTHIAZIDE 25 MG TABLET (FP) PO SCH (10:05)
[2017-03-31] MEDS: LIDOCAINE 5% TOPICAL PATCH TP SCH (10:05)
[2017-03-31] MEDS: NICOTINE 21 MG/24 HOURS TOPICAL PATCH TD SCH (10:06)
[2017-03-31] MEDS: amLODIPine BESYLATE 10 MG TABLET (FP) PO SCH (10:06)
[2017-03-31] MEDS: BUDESONIDE/FORMETEROL FUMARATE 160/4.5 mcg INHALER IH SCH ×2 (10:06→21:38)
[2017-03-31] MEDS: THIAMINE HCL 100 MG TABLET (FP) PO SCH (21:36)
[2017-03-31] MEDS: TAMSULOSIN HCL 0.4 MG CAP.ER.24H (FP) PO SCH (21:36)
[2017-03-31] MEDS: ATORVASTATIN CA 20 MG TABLET (FP) PO SCH (21:36)
[2017-03-31] MEDS: hydrOXYzine PAMOATE 50 MG CAPSULE (FP) PO PRN (21:37)
[2017-03-31] MEDS: QUEtiapine FUMARATE 200 MG TABLET PO SCH (21:37)
[2017-03-31] MEDS: LIDOCAINE PATCH REMOVAL MC SCH (21:37)
[2017-03-31] MEDS: MINERAL OIL/PETROLATUM,WHITE 3.5 GM TUBE OU SCH (22:25)
[2017-04-01] MEDS ORDERED: METHADONE HCL 40 MG DISPERSABLE TABLET ONE (04:06)
[2017-04-01] MEDS ORDERED: METHADONE HCL 10 MG TABLET ONE (04:06)
[2017-04-01] MEDS: METHADONE 40 MG, METHADONE 20 MG PO SCH (06:07)
[2017-04-01] MEDS: CYCLOBENZAPRINE HCL 10 MG TABLET (FP) PO SCH ×3 (06:07→21:33)
--- NOTE | 2017-04-01 10:08 | EKG ---
Test Reason : Blood Pressure : / mmHG Vent. Rate : 089 BPM Atrial Rate : 089 BPM P-R Int : 142 ms QRS Dur : 090 ms QT Int : 352 ms P-R-T Axes : 070 082 061 degrees QTc Int : 428 ms NORMAL SINUS RHYTHM NORMAL ECG WHEN COMPARED WITH ECG OF 17-MAR-2017 08:04, QT HAS SHORTENED Confirmed by PAULETTE JAIMES MD ([id number]) on 04/01/2017 10:08:28 AM Referred By: Confirmed By:PAULETTE JAIMES MD
[2017-04-01] MEDS: PRENATAL VITAMINS W/ FOLIC ACID TABLET (FP) PO SCH (10:15)
[2017-04-01] MEDS: METHYL SALICYLATE/MENTHOL OINT 30 GM TUBE TP SCH ×2 (10:15→21:37)
[2017-04-01] MEDS: LIDOCAINE 5% TOPICAL PATCH TP SCH (10:15)
[2017-04-01] MEDS: amLODIPine BESYLATE 10 MG TABLET (FP) PO SCH (10:15)
[2017-04-01] MEDS: HYDROCHLOROTHIAZIDE 25 MG TABLET (FP) PO SCH (10:15)
[2017-04-01] MEDS: LOSARTAN POTASSIUM 50 MG TABLET (FP) PO SCH ×2 (10:15→21:33)
[2017-04-01] MEDS: NICOTINE 21 MG/24 HOURS TOPICAL PATCH TD SCH (10:15)
[2017-04-01] MEDS: ASPIRIN COATED 81 MG TABLET.EC PO SCH (10:15)
[2017-04-01] MEDS: NAPROXEN 500 MG TABLET (FP) PO SCH ×2 (10:15→21:34)
[2017-04-01] MEDS: BUDESONIDE/FORMETEROL FUMARATE 160/4.5 mcg INHALER IH SCH ×2 (10:16→21:32)
[2017-04-01] MEDS: TIOTROPIUM BROMIDE 18 MCG/INH (DEVICE W/ 5 CAPSULES) IH SCH (10:16)
[2017-04-01] MEDS: PANTOPRAZOLE 40 MG TABLET (FP) PO SCH (10:16)
[2017-04-01] MEDS: TAMSULOSIN HCL 0.4 MG CAP.ER.24H (FP) PO SCH (21:33)
[2017-04-01] MEDS: MINERAL OIL/PETROLATUM,WHITE 3.5 GM TUBE OU SCH (21:33)
[2017-04-01] MEDS: QUEtiapine FUMARATE 200 MG TABLET PO SCH (21:34)
[2017-04-01] MEDS: ATORVASTATIN CA 20 MG TABLET (FP) PO SCH (21:34)
[2017-04-01] MEDS: hydrOXYzine PAMOATE 50 MG CAPSULE (FP) PO PRN (21:35)
[2017-04-01] MEDS: LIDOCAINE PATCH REMOVAL MC SCH (21:37)
[2017-04-01] MEDS: THIAMINE HCL 100 MG TABLET (FP) PO SCH (22:29)
[2017-04-02] MEDS ORDERED: METHADONE HCL 10 MG TABLET ONE (04:10)
[2017-04-02] MEDS ORDERED: METHADONE HCL 40 MG DISPERSABLE TABLET ONE (04:10)
[2017-04-02] MEDS: CYCLOBENZAPRINE HCL 10 MG TABLET (FP) PO SCH ×3 (06:14→21:20)
[2017-04-02] MEDS: METHADONE 40 MG, METHADONE 20 MG PO SCH (06:15)
[2017-04-02] MEDS: HYDROCHLOROTHIAZIDE 25 MG TABLET (FP) PO SCH (09:35)
[2017-04-02] MEDS: PRENATAL VITAMINS W/ FOLIC ACID TABLET (FP) PO SCH (09:35)
[2017-04-02] MEDS: amLODIPine BESYLATE 10 MG TABLET (FP) PO SCH (09:35)
[2017-04-02] MEDS: NAPROXEN 500 MG TABLET (FP) PO SCH ×2 (09:35→21:21)
[2017-04-02] MEDS: TIOTROPIUM BROMIDE 18 MCG/INH (DEVICE W/ 5 CAPSULES) IH SCH (09:35)
[2017-04-02] MEDS: LOSARTAN POTASSIUM 50 MG TABLET (FP) PO SCH ×2 (09:35→21:20)
[2017-04-02] MEDS: BUDESONIDE/FORMETEROL FUMARATE 160/4.5 mcg INHALER IH SCH ×2 (09:35→21:20)
[2017-04-02] MEDS: ASPIRIN COATED 81 MG TABLET.EC PO SCH (09:36)
[2017-04-02] MEDS: PANTOPRAZOLE 40 MG TABLET (FP) PO SCH (09:36)
[2017-04-02] MEDS: METHYL SALICYLATE/MENTHOL OINT 30 GM TUBE TP SCH ×2 (09:36→21:21)
[2017-04-02] MEDS: NICOTINE 21 MG/24 HOURS TOPICAL PATCH TD SCH (09:36)
[2017-04-02] MEDS: LIDOCAINE 5% TOPICAL PATCH TP SCH (09:39)
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
[2017-04-02] MEDS: ATORVASTATIN CA 20 MG TABLET (FP) PO SCH (21:20)
[2017-04-02] MEDS: MINERAL OIL/PETROLATUM,WHITE 3.5 GM TUBE OU SCH (21:20)
[2017-04-02] MEDS: THIAMINE HCL 100 MG TABLET (FP) PO SCH (21:20)
[2017-04-02] MEDS: QUEtiapine FUMARATE 200 MG TABLET PO SCH (21:20)
[2017-04-02] MEDS: TAMSULOSIN HCL 0.4 MG CAP.ER.24H (FP) PO SCH (21:21)
[2017-04-02] MEDS: LIDOCAINE PATCH REMOVAL MC SCH (21:21)
[2017-04-02] MEDS: hydrOXYzine PAMOATE 50 MG CAPSULE (FP) PO PRN (21:22)
[2017-04-03] MEDS ORDERED: METHADONE HCL 40 MG DISPERSABLE TABLET ONE (04:02)
[2017-04-03] MEDS ORDERED: METHADONE HCL 10 MG TABLET ONE (04:02)
[2017-04-03] MEDS: METHADONE 40 MG, METHADONE 20 MG PO SCH (06:28)
[2017-04-03] MEDS: CYCLOBENZAPRINE HCL 10 MG TABLET (FP) PO SCH ×3 (06:28→21:37)
[2017-04-03] MEDS: ASPIRIN COATED 81 MG TABLET.EC PO SCH (09:58)
[2017-04-03] MEDS: BUDESONIDE/FORMETEROL FUMARATE 160/4.5 mcg INHALER IH SCH ×2 (09:58→21:40)
[2017-04-03] MEDS: HYDROCHLOROTHIAZIDE 25 MG TABLET (FP) PO SCH (09:58)
[2017-04-03] MEDS: NICOTINE 21 MG/24 HOURS TOPICAL PATCH TD SCH (09:58)
[2017-04-03] MEDS: PRENATAL VITAMINS W/ FOLIC ACID TABLET (FP) PO SCH (09:58)
[2017-04-03] MEDS: LIDOCAINE 5% TOPICAL PATCH TP SCH (09:58)
[2017-04-03] MEDS: NAPROXEN 500 MG TABLET (FP) PO SCH ×2 (09:58→21:37)
[2017-04-03] MEDS: LOSARTAN POTASSIUM 50 MG TABLET (FP) PO SCH ×2 (09:58→21:37)
[2017-04-03] MEDS: PANTOPRAZOLE 40 MG TABLET (FP) PO SCH (09:58)
[2017-04-03] MEDS: METHYL SALICYLATE/MENTHOL OINT 30 GM TUBE TP SCH ×2 (09:58→21:40)
[2017-04-03] MEDS: amLODIPine BESYLATE 10 MG TABLET (FP) PO SCH (09:58)
[2017-04-03] MEDS: TIOTROPIUM BROMIDE 18 MCG/INH (DEVICE W/ 5 CAPSULES) IH SCH (09:59)
[2017-04-03] MEDS: QUEtiapine FUMARATE 200 MG TABLET PO SCH (21:37)
[2017-04-03] MEDS: THIAMINE HCL 100 MG TABLET (FP) PO SCH (21:37)
[2017-04-03] MEDS: ATORVASTATIN CA 20 MG TABLET (FP) PO SCH (21:37)
[2017-04-03] MEDS: TAMSULOSIN HCL 0.4 MG CAP.ER.24H (FP) PO SCH (21:37)
[2017-04-03] MEDS: hydrOXYzine PAMOATE 50 MG CAPSULE (FP) PO PRN (21:38)
[2017-04-03] MEDS: MINERAL OIL/PETROLATUM,WHITE 3.5 GM TUBE OU SCH (21:39)
[2017-04-03] MEDS: LIDOCAINE PATCH REMOVAL MC SCH (21:40)
[2017-04-04] MEDS ORDERED: METHADONE HCL 10 MG TABLET ONE (04:04)
[2017-04-04] MEDS ORDERED: METHADONE HCL 40 MG DISPERSABLE TABLET ONE (04:05)
[2017-04-04] MEDS: METHADONE 40 MG, METHADONE 20 MG PO SCH (06:25)
[2017-04-04] MEDS: CYCLOBENZAPRINE HCL 10 MG TABLET (FP) PO SCH ×3 (06:25→21:17)
[2017-04-04] MEDS: PANTOPRAZOLE 40 MG TABLET (FP) PO SCH (09:33)
[2017-04-04] MEDS: NAPROXEN 500 MG TABLET (FP) PO SCH ×2 (09:33→21:17)
[2017-04-04] MEDS: PRENATAL VITAMINS W/ FOLIC ACID TABLET (FP) PO SCH (09:33)
[2017-04-04] MEDS: ASPIRIN COATED 81 MG TABLET.EC PO SCH (09:33)
[2017-04-04] MEDS: BUDESONIDE/FORMETEROL FUMARATE 160/4.5 mcg INHALER IH SCH ×2 (09:33→21:16)
[2017-04-04] MEDS: TIOTROPIUM BROMIDE 18 MCG/INH (DEVICE W/ 5 CAPSULES) IH SCH (09:33)
[2017-04-04] MEDS: METHYL SALICYLATE/MENTHOL OINT 30 GM TUBE TP SCH ×2 (09:34→22:32)
[2017-04-04] MEDS: LOSARTAN POTASSIUM 50 MG TABLET (FP) PO SCH ×2 (09:34→21:17)
[2017-04-04] MEDS: amLODIPine BESYLATE 10 MG TABLET (FP) PO SCH (09:34)
[2017-04-04] MEDS: HYDROCHLOROTHIAZIDE 25 MG TABLET (FP) PO SCH (09:34)
[2017-04-04] MEDS: LIDOCAINE 5% TOPICAL PATCH TP SCH (09:34)
[2017-04-04] MEDS: NICOTINE 21 MG/24 HOURS TOPICAL PATCH TD SCH (09:35)
[2017-04-04] MEDS: MINERAL OIL/PETROLATUM,WHITE 3.5 GM TUBE OU SCH (21:16)
[2017-04-04] MEDS: hydrOXYzine PAMOATE 50 MG CAPSULE (FP) PO PRN (21:17)
[2017-04-04] MEDS: TAMSULOSIN HCL 0.4 MG CAP.ER.24H (FP) PO SCH (21:17)
[2017-04-04] MEDS: THIAMINE HCL 100 MG TABLET (FP) PO SCH (21:17)
[2017-04-04] MEDS: QUEtiapine FUMARATE 200 MG TABLET PO SCH (21:17)
[2017-04-04] MEDS: ATORVASTATIN CA 20 MG TABLET (FP) PO SCH (21:17)
[2017-04-04] MEDS: LIDOCAINE PATCH REMOVAL MC SCH (22:32)
[2017-04-05] MEDS ORDERED: METHADONE HCL 10 MG TABLET ONE (04:15)
[2017-04-05] MEDS ORDERED: METHADONE HCL 40 MG DISPERSABLE TABLET ONE (04:15)
[2017-04-05] MEDS: METHADONE 40 MG, METHADONE 20 MG PO SCH (05:54)
[2017-04-05] MEDS: CYCLOBENZAPRINE HCL 10 MG TABLET (FP) PO SCH ×3 (05:54→21:31)
[2017-04-05] MEDS: ASPIRIN COATED 81 MG TABLET.EC PO SCH (09:41)
[2017-04-05] MEDS: HYDROCHLOROTHIAZIDE 25 MG TABLET (FP) PO SCH (09:41)
[2017-04-05] MEDS: TIOTROPIUM BROMIDE 18 MCG/INH (DEVICE W/ 5 CAPSULES) IH SCH (09:41)
[2017-04-05] MEDS: PRENATAL VITAMINS W/ FOLIC ACID TABLET (FP) PO SCH (09:41)
[2017-04-05] MEDS: LOSARTAN POTASSIUM 50 MG TABLET (FP) PO SCH ×2 (09:41→21:31)
[2017-04-05] MEDS: NAPROXEN 500 MG TABLET (FP) PO SCH ×2 (09:41→21:31)
[2017-04-05] MEDS: PANTOPRAZOLE 40 MG TABLET (FP) PO SCH (09:41)
[2017-04-05] MEDS: amLODIPine BESYLATE 10 MG TABLET (FP) PO SCH (09:41)
[2017-04-05] MEDS: BUDESONIDE/FORMETEROL FUMARATE 160/4.5 mcg INHALER IH SCH ×2 (09:42→21:31)
[2017-04-05] MEDS: LIDOCAINE 5% TOPICAL PATCH TP SCH (09:42)
[2017-04-05] MEDS: METHYL SALICYLATE/MENTHOL OINT 30 GM TUBE TP SCH ×2 (09:42→21:34)
[2017-04-05] MEDS: NICOTINE 21 MG/24 HOURS TOPICAL PATCH TD SCH (09:42)
[2017-04-05] MEDS: QUEtiapine FUMARATE 200 MG TABLET PO SCH (21:31)
[2017-04-05] MEDS: THIAMINE HCL 100 MG TABLET (FP) PO SCH (21:31)
[2017-04-05] MEDS: hydrOXYzine PAMOATE 50 MG CAPSULE (FP) PO PRN (21:31)
[2017-04-05] MEDS: TAMSULOSIN HCL 0.4 MG CAP.ER.24H (FP) PO SCH (21:32)
[2017-04-05] MEDS: ATORVASTATIN CA 20 MG TABLET (FP) PO SCH (21:32)
[2017-04-05] MEDS: MINERAL OIL/PETROLATUM,WHITE 3.5 GM TUBE OU SCH (21:33)
[2017-04-05] MEDS: LIDOCAINE PATCH REMOVAL MC SCH (21:34)
[2017-04-06] MEDS ORDERED: METHADONE HCL 40 MG DISPERSABLE TABLET ONE (03:57)
[2017-04-06] MEDS ORDERED: METHADONE HCL 10 MG TABLET ONE (03:57)
[2017-04-06] MEDS: METHADONE 40 MG, METHADONE 20 MG PO SCH (05:51)
[2017-04-06] MEDS: CYCLOBENZAPRINE HCL 10 MG TABLET (FP) PO SCH ×3 (05:51→21:50)
[2017-04-06] MEDS: PRENATAL VITAMINS W/ FOLIC ACID TABLET (FP) PO SCH (09:57)
[2017-04-06] MEDS: TIOTROPIUM BROMIDE 18 MCG/INH (DEVICE W/ 5 CAPSULES) IH SCH (09:57)
[2017-04-06] MEDS: METHYL SALICYLATE/MENTHOL OINT 30 GM TUBE TP SCH ×2 (09:57→22:27)
[2017-04-06] MEDS: BUDESONIDE/FORMETEROL FUMARATE 160/4.5 mcg INHALER IH SCH ×2 (09:57→22:28)
[2017-04-06] MEDS: amLODIPine BESYLATE 10 MG TABLET (FP) PO SCH (09:57)
[2017-04-06] MEDS: ASPIRIN COATED 81 MG TABLET.EC PO SCH (09:57)
[2017-04-06] MEDS: LIDOCAINE 5% TOPICAL PATCH TP SCH (09:58)
[2017-04-06] MEDS: NAPROXEN 500 MG TABLET (FP) PO SCH ×2 (09:58→21:50)
[2017-04-06] MEDS: LOSARTAN POTASSIUM 50 MG TABLET (FP) PO SCH ×2 (09:58→21:50)
[2017-04-06] MEDS: PANTOPRAZOLE 40 MG TABLET (FP) PO SCH (09:58)
[2017-04-06] MEDS: HYDROCHLOROTHIAZIDE 25 MG TABLET (FP) PO SCH (09:58)
[2017-04-06] MEDS: NICOTINE 21 MG/24 HOURS TOPICAL PATCH TD SCH (09:59)
[2017-04-06] MEDS: THIAMINE HCL 100 MG TABLET (FP) PO SCH (21:50)
[2017-04-06] MEDS: ATORVASTATIN CA 20 MG TABLET (FP) PO SCH (21:50)
[2017-04-06] MEDS: TAMSULOSIN HCL 0.4 MG CAP.ER.24H (FP) PO SCH (21:50)
[2017-04-06] MEDS: QUEtiapine FUMARATE 200 MG TABLET PO SCH (21:50)
[2017-04-06] MEDS: hydrOXYzine PAMOATE 50 MG CAPSULE (FP) PO PRN (21:52)
[2017-04-06] MEDS: MINERAL OIL/PETROLATUM,WHITE 3.5 GM TUBE OU SCH (22:27)
[2017-04-06] MEDS: LIDOCAINE PATCH REMOVAL MC SCH (22:27)
[2017-04-07] MEDS ORDERED: METHADONE HCL 40 MG DISPERSABLE TABLET ONE (05:47)
[2017-04-07] MEDS ORDERED: METHADONE HCL 10 MG TABLET ONE (05:47)
[2017-04-07] MEDS: METHADONE 40 MG, METHADONE 20 MG PO SCH (06:16)
[2017-04-07] MEDS: CYCLOBENZAPRINE HCL 10 MG TABLET (FP) PO SCH ×3 (06:16→21:22)
[2017-04-07] MEDS: ASPIRIN COATED 81 MG TABLET.EC PO SCH (09:46)
[2017-04-07] MEDS: PANTOPRAZOLE 40 MG TABLET (FP) PO SCH (09:46)
[2017-04-07] MEDS: LIDOCAINE 5% TOPICAL PATCH TP SCH (09:46)
[2017-04-07] MEDS: NICOTINE 21 MG/24 HOURS TOPICAL PATCH TD SCH (09:46)
[2017-04-07] MEDS: HYDROCHLOROTHIAZIDE 25 MG TABLET (FP) PO SCH (09:46)
[2017-04-07] MEDS: PRENATAL VITAMINS W/ FOLIC ACID TABLET (FP) PO SCH (09:46)
[2017-04-07] MEDS: NAPROXEN 500 MG TABLET (FP) PO SCH ×2 (09:46→21:23)
[2017-04-07] MEDS: LOSARTAN POTASSIUM 50 MG TABLET (FP) PO SCH ×2 (09:46→21:23)
[2017-04-07] MEDS: BUDESONIDE/FORMETEROL FUMARATE 160/4.5 mcg INHALER IH SCH ×2 (09:47→21:22)
[2017-04-07] MEDS: amLODIPine BESYLATE 10 MG TABLET (FP) PO SCH (09:47)
[2017-04-07] MEDS: METHYL SALICYLATE/MENTHOL OINT 30 GM TUBE TP SCH ×2 (10:51→22:03)
[2017-04-07] MEDS: TIOTROPIUM BROMIDE 18 MCG/INH (DEVICE W/ 5 CAPSULES) IH SCH (10:58)
[2017-04-07] MEDS: THIAMINE HCL 100 MG TABLET (FP) PO SCH (21:22)
[2017-04-07] MEDS: MINERAL OIL/PETROLATUM,WHITE 3.5 GM TUBE OU SCH (21:22)
[2017-04-07] MEDS: QUEtiapine FUMARATE 200 MG TABLET PO SCH (21:22)
[2017-04-07] MEDS: hydrOXYzine PAMOATE 50 MG CAPSULE (FP) PO PRN (21:23)
[2017-04-07] MEDS: TAMSULOSIN HCL 0.4 MG CAP.ER.24H (FP) PO SCH (21:23)
[2017-04-07] MEDS: ATORVASTATIN CA 20 MG TABLET (FP) PO SCH (21:23)
[2017-04-07] MEDS: LIDOCAINE PATCH REMOVAL MC SCH (21:25)
[2017-04-08] MEDS: CYCLOBENZAPRINE HCL 10 MG TABLET (FP) PO SCH ×3 (06:27→21:34)
[2017-04-08] MEDS ORDERED: METHADONE HCL 10 MG TABLET PO SCH (06:30)
[2017-04-08] MEDS ORDERED: METHADONE HCL 10 MG TABLET ONE (06:48)
[2017-04-08] MEDS: METHADONE 40 MG, METHADONE 20 MG PO SCH (06:49)
[2017-04-08] MEDS ORDERED: METHADONE HCL 40 MG DISPERSABLE TABLET ONE (06:49)
[2017-04-08] MEDS: PRENATAL VITAMINS W/ FOLIC ACID TABLET (FP) PO SCH (10:12)
[2017-04-08] MEDS: HYDROCHLOROTHIAZIDE 25 MG TABLET (FP) PO SCH (10:12)
[2017-04-08] MEDS: PANTOPRAZOLE 40 MG TABLET (FP) PO SCH (10:12)
[2017-04-08] MEDS: NAPROXEN 500 MG TABLET (FP) PO SCH ×2 (10:13→21:35)
[2017-04-08] MEDS: TIOTROPIUM BROMIDE 18 MCG/INH (DEVICE W/ 5 CAPSULES) IH SCH (10:13)
[2017-04-08] MEDS: BUDESONIDE/FORMETEROL FUMARATE 160/4.5 mcg INHALER IH SCH ×2 (10:13→22:31)
[2017-04-08] MEDS: LOSARTAN POTASSIUM 50 MG TABLET (FP) PO SCH ×2 (10:13→21:35)
[2017-04-08] MEDS: amLODIPine BESYLATE 10 MG TABLET (FP) PO SCH (10:13)
[2017-04-08] MEDS: NICOTINE 21 MG/24 HOURS TOPICAL PATCH TD SCH (10:13)
[2017-04-08] MEDS: ASPIRIN COATED 81 MG TABLET.EC PO SCH (10:13)
[2017-04-08] MEDS: METHYL SALICYLATE/MENTHOL OINT 30 GM TUBE TP SCH ×2 (10:13→21:37)
[2017-04-08] MEDS: LIDOCAINE 5% TOPICAL PATCH TP SCH (10:13)
[2017-04-08] MEDS: THIAMINE HCL 100 MG TABLET (FP) PO SCH (21:34)
[2017-04-08] MEDS: QUEtiapine FUMARATE 200 MG TABLET PO SCH (21:34)
[2017-04-08] MEDS: TAMSULOSIN HCL 0.4 MG CAP.ER.24H (FP) PO SCH (21:34)
[2017-04-08] MEDS: MINERAL OIL/PETROLATUM,WHITE 3.5 GM TUBE OU SCH (21:34)
[2017-04-08] MEDS: ATORVASTATIN CA 20 MG TABLET (FP) PO SCH (21:34)
[2017-04-08] MEDS: hydrOXYzine PAMOATE 50 MG CAPSULE (FP) PO PRN (21:35)
[2017-04-08] MEDS: LIDOCAINE PATCH REMOVAL MC SCH (21:36)
[2017-04-09] MEDS ORDERED: METHADONE HCL 10 MG TABLET ONE (02:36)
[2017-04-09] MEDS ORDERED: METHADONE HCL 40 MG DISPERSABLE TABLET ONE (02:36)
[2017-04-09] MEDS: CYCLOBENZAPRINE HCL 10 MG TABLET (FP) PO SCH ×3 (06:40→21:22)
[2017-04-09] MEDS: METHADONE 40 MG, METHADONE 20 MG PO SCH (06:40)
[2017-04-09] MEDS: hydrOXYzine PAMOATE 50 MG CAPSULE (FP) PO PRN ×2 (06:42→21:23)
[2017-04-09] MEDS: BUDESONIDE/FORMETEROL FUMARATE 160/4.5 mcg INHALER IH SCH ×2 (10:06→21:25)
[2017-04-09] MEDS: TIOTROPIUM BROMIDE 18 MCG/INH (DEVICE W/ 5 CAPSULES) IH SCH (10:06)
[2017-04-09] MEDS: PANTOPRAZOLE 40 MG TABLET (FP) PO SCH (10:07)
[2017-04-09] MEDS: NAPROXEN 500 MG TABLET (FP) PO SCH ×2 (10:07→21:23)
[2017-04-09] MEDS: LOSARTAN POTASSIUM 50 MG TABLET (FP) PO SCH ×2 (10:07→21:23)
[2017-04-09] MEDS: PRENATAL VITAMINS W/ FOLIC ACID TABLET (FP) PO SCH (10:07)
[2017-04-09] MEDS: NICOTINE 21 MG/24 HOURS TOPICAL PATCH TD SCH (10:07)
[2017-04-09] MEDS: ASPIRIN COATED 81 MG TABLET.EC PO SCH (10:07)
[2017-04-09] MEDS: LIDOCAINE 5% TOPICAL PATCH TP SCH (10:07)
[2017-04-09] MEDS: amLODIPine BESYLATE 10 MG TABLET (FP) PO SCH (10:07)
[2017-04-09] MEDS: HYDROCHLOROTHIAZIDE 25 MG TABLET (FP) PO SCH (10:07)
[2017-04-09] MEDS: METHYL SALICYLATE/MENTHOL OINT 30 GM TUBE TP SCH ×2 (10:08→21:25)
--- NOTE | 2017-04-09 11:55 | PN ---
Psychiatric Progress Note Vital Signs: Vital Signs Period Temp Pulse Resp BP Sys/Lopez Pulse Ox Last 24 Hr 97.5 F 96-112 18-20 115-130/82-92 Date of Session: 04/09/17 Chief Complaint:: Discharge Note HPI: Patient addresing Alcohol and Sedative Dependence comorbid with Nicotine Dependence, Bipolar Disorder and Substance-Induced Anxiety Disorder ROS: Anemia, COPD, GERD, HTN, HLD, Alcohol-related seizure, Current Medications: Active Medications Generic Name Dose Route Start Last Admin Trade Name Freq PRN Reason Stop Dose Admin Acetaminophen 650 mg 03/20/17 15:15 04/07/17 14:51 Tylenol - PO 650 mg Q4H PRN Administration FEVER OR PAIN Al Hydroxide/Mg Hydroxide 30 ml 03/20/17 15:15 03/27/17 12:49 Mylanta Oral Suspension - PO 30 ml Q6H PRN Administration DYSPEPSIA Albuterol Sulfate 2 puff 03/20/17 15:17 Ventolin Hfa Inhaler - IH Q4H PRN SHORT OF BREATH/WHEEZING Amlodipine Besylate 10 mg 03/21/17 10:00 04/09/17 10:07 Norvasc - PO 10 mg DAILY REBECCA Administration Artificial Tears 1 applic 03/20/17 22:00 04/08/17 21:34 Artificial Tears Ointment - OU 1 applic HS REBECCA Administration Artificial Tears 1 drop 03/20/17 17:34 03/26/17 21:39 Artificial Tears OU 1 drop DAILY PRN Administration DRY EYES Aspirin 81 mg 03/21/17 10:00 04/09/17 10:07 Ecotrin - PO 81 mg DAILY REBECCA Administration Atorvastatin Calcium 20 mg 03/20/17 22:00 04/08/17 21:34 Lipitor - PO 20 mg HS REBECCA Administration Budesonide/Formoterol Fumarate 1 puff 03/20/17 22:00 04/09/17 10:06 Symbicort 160/4.5mcg - IH 1 puff BID REBECCA Administration Cyclobenzaprine HCl 10 mg 03/26/17 14:00 04/09/17 06:40 Flexeril - PO 10 mg TID REBECCA Administration Eucalyptus/Menthol/Phenol/Sorbitol 1 each 03/20/17 15:15 Cepastat Lozenge - MM Q4H PRN SORE THROAT Guaifenesin 10 ml 03/20/17 15:15 Robitussin Dm - PO Q6H PRN COUGH Hydrochlorothiazide 25 mg 03/24/17 10:00 04/09/17 10:07 Hctz - PO 25 mg DAILY REBECCA Administration Hydroxyzine Pamoate 50 mg 03/20/17 15:15 04/09/17 06:42 Vistaril - PO 50 mg Q4H PRN Administration AGITATION Lidocaine 1 patch 03/26/17 12:57 04/09/17 10:07 Lidoderm Patch - TP 1 patch DAILY REBECCA Administration Loperamide HCl 4 mg 03/20/17 15:15 Imodium - PO Q6H PRN DIARRHEA Losartan Potassium 50 mg 03/20/17 22:00 04/09/17 10:07 Cozaar - PO 50 mg BID REBECCA Administration Magnesium Citrate 300 ml 03/20/17 15:15 Citroma - PO Q48H PRN CONSTIPATION Magnesium Hydroxide 30 ml 03/20/17 15:15 04/02/17 09:38 Milk Of Magnesia - PO 30 ml DAILY PRN Administration CONSTIPATION Methadone HCl 40 mg/ Methadone 60 mg 04/08/17 06:45 04/09/17 06:40 HCl 20 mg PO 60 mg DAILY@0600 REBECCA Administration Methyl Salicylate 1 applic 03/23/17 22:00 04/09/17 10:08 Louie-[place] - TP Not Given BID REBECCA Miscellaneous 1 each 03/26/17 22:00 04/08/17 21:36 Lidoderm Patch Removal MC 1 each DAILY@2200 REBECCA Administration Naproxen 500 mg 03/26/17 12:57 04/09/17 10:07 Naprosyn - PO 500 mg BID REBECCA Administration Nicotine 21 mg 03/21/17 11:45 04/09/17 10:07 Nicoderm Patch - TD 21 mg DAILY REBECCA Administration Nicotine Polacrilex 2 mg 03/20/17 15:15 Nicorette Gum - BUC Q2H PRN NICOTINE REPLACEMENT RX Pantoprazole Sodium 40 mg 03/26/17 13:00 04/09/17 10:07 Protonix - PO 40 mg DAILY REBECCA Administration Multivit/Folic Acid/Iron 1 tab 03/21/17 10:00 04/09/17 10:07 Vitamins (Sjr) - PO 1 tab DAILY REBECCA Administration Pseudoephedrine/Triprolidine 1 combo 03/20/17 15:15 Actifed - PO TID PRN NASAL CONGESTION Quetiapine Fumarate 200 mg 03/20/17 22:00 04/08/17 21:34 Seroquel - PO 200 mg HS REBECCA Administration Tamsulosin HCl 0.4 mg 03/20/17 22:00 04/08/17 21:34 Flomax - PO 0.4 mg HS REBECCA Administration Thiamine HCl 100 mg 03/20/17 22:00 04/08/17 21:34 Vitamin B1 - PO 100 mg HS REBECCA Administration Tiotropium [place] 1 puff 03/21/17 10:00 04/09/17 10:06 Spiriva - IH 1 puff DAILY REBECCA Administration Current Side Effect: No Lab tests ordered: Yes Lab tests reviewed: Yes Provider note:: Patient will complete this program on 04/10/17. He has met his treatment goals and will continue to address his issues in outpatient treatment at [facility] at [id number] [place] [address] 1035. 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 He responded well to Seroquel 200 mg po HS. Script for 30 days supply of that medication jj be electronically transmitted to [facility] at [address] [place] [id number]. He is stable for discharge on 04/10/17. Total face to face time:: 35 Mental Status Exam - Mental Status Exam Alert and Oriented to: Time, Place, Person Cognitive Function: Fair Patient Appearance: Well Groomed Mood: Hopeful, Euthymic Affect: Appropriate Patient Behavior: Cooperative Speech Pattern: Clear Voice Loudness: Normal Thought Process: Intact, Goal Oriented Thought Disorder: Not Present Hallucinations: Denies Suicidal Ideation: Denies Homicidal Ideation: Denies Insight/Judgement: Fair Sleep: Fair Appetite: Good Muscle strength/Tone: Normal Gait/Station: Normal Psychiatric Treatment Plan - Problem List (1) Alcohol dependence Current Visit: No Qualifiers: Substance use status: in withdrawal Complication of substance-induced condition: uncomplicated Qualified Code(s): F10.230 - Alcohol dependence with withdrawal, uncomplicated (2) Sedative hypnotic or anxiolytic dependence Current Visit: Yes (3) Bipolar disorder Current Visit: No Comment: As per records / self-report.On medications.Non- adherent to OPD care. (4) Alcohol-induced anxiety disorder Current Visit: Yes (5) Alcohol-induced sleep disorder Current Visit: Yes (6) History of anemia Current Visit: No (7) COPD (chronic obstructive pulmonary disease) Current Visit: No Qualifiers: COPD type: emphysema Emphysema type: unspecified Qualified Code(s): J43.9 - Emphysema, unspecified (8) GERD (gastroesophageal reflux disease) Current Visit: No Qualifiers: Esophagitis presence: without esophagitis Qualified Code(s): K21.9 - Gastro -esophageal reflux disease without esophagitis (9) Hypercholesteremia Current Visit: No (10) Hypertension Current Visit: No Qualifiers: Hypertension type: essential hypertension Qualified Code(s): I10 - Essential (primary) hypertension (11) Alcohol related seizure Current Visit: No (12) Opioid dependence on agonist therapy Current Visit: No (13) Nicotine dependence Current Visit: No Qualifiers: Nicotine product type: cigarettes Substance use status: in withdrawal Qualified Code(s): F17.213 - Nicotine dependence, cigarettes, with withdrawal Initial treatment plan: Patient will be discharged tomorrow and referred to [facility] for outpatient treatment
[2017-04-09] MEDS: QUEtiapine FUMARATE 200 MG TABLET PO SCH (21:22)
[2017-04-09] MEDS: THIAMINE HCL 100 MG TABLET (FP) PO SCH (21:22)
[2017-04-09] MEDS: TAMSULOSIN HCL 0.4 MG CAP.ER.24H (FP) PO SCH (21:23)
[2017-04-09] MEDS: ATORVASTATIN CA 20 MG TABLET (FP) PO SCH (21:23)
[2017-04-09] MEDS: MINERAL OIL/PETROLATUM,WHITE 3.5 GM TUBE OU SCH (21:23)
[2017-04-09] MEDS: LIDOCAINE PATCH REMOVAL MC SCH (21:25)
[2017-04-10] MEDS ORDERED: METHADONE HCL 40 MG DISPERSABLE TABLET ONE (03:10)
[2017-04-10] MEDS ORDERED: METHADONE HCL 10 MG TABLET ONE (03:10)
[2017-04-10] MEDS: METHADONE 40 MG, METHADONE 20 MG PO SCH (06:34)
[2017-04-10] MEDS: CYCLOBENZAPRINE HCL 10 MG TABLET (FP) PO SCH (06:35)
[2017-04-10 06:42] VITALS: BP 134/94; PULSE 97; TEMP 98.4
[2017-04-10] MEDS: HYDROCHLOROTHIAZIDE 25 MG TABLET (FP) PO SCH (09:08)
[2017-04-10] MEDS: PANTOPRAZOLE 40 MG TABLET (FP) PO SCH (09:08)
[2017-04-10] MEDS: BUDESONIDE/FORMETEROL FUMARATE 160/4.5 mcg INHALER IH SCH (09:08)
[2017-04-10] MEDS: TIOTROPIUM BROMIDE 18 MCG/INH (DEVICE W/ 5 CAPSULES) IH SCH (09:08)
[2017-04-10] MEDS: LOSARTAN POTASSIUM 50 MG TABLET (FP) PO SCH (09:09)
[2017-04-10] MEDS: ASPIRIN COATED 81 MG TABLET.EC PO SCH (09:09)
[2017-04-10] MEDS: METHYL SALICYLATE/MENTHOL OINT 30 GM TUBE TP SCH (09:09)
[2017-04-10] MEDS: amLODIPine BESYLATE 10 MG TABLET (FP) PO SCH (09:09)
[2017-04-10] MEDS: PRENATAL VITAMINS W/ FOLIC ACID TABLET (FP) PO SCH (09:09)
[2017-04-10] MEDS: NAPROXEN 500 MG TABLET (FP) PO SCH (09:09)
[2017-04-10] MEDS: LIDOCAINE 5% TOPICAL PATCH TP SCH (09:09)
[2017-04-10] MEDS: NICOTINE 21 MG/24 HOURS TOPICAL PATCH TD SCH (09:09)
[2017-04-10] MEDS ORDERED: PT OWN MED DRAWER 7, Y5N ONE (09:14)
== END 2017-04-10 09:25 | disposition home or self-care (01) | DRG 772 ==
LOC: YASAS 13:45 → Y3W 13:46
PROVIDERS: ADMIT Psychiatry & Neurology Psychiatry; ATTEND Psychiatry & Neurology Psychiatry
PROC: HZ42ZZZ Group Counseling for Substance Abuse Treatment, Cognitive-Behavioral (ICD-10-PCS; principal; 2017-03-20)
DX: F10.20 Alcohol dependence, uncomplicated (principal); F11.20 Opioid dependence, uncomplicated; F13.20 Sedative, hypnotic or anxiolytic dependence, uncomplicated; F10.280 Alcohol dependence with alcohol-induced anxiety disorder; F10.282 Alcohol dependence with alcohol-induced sleep disorder; F17.213 Nicotine dependence, cigarettes, with withdrawal; F31.9 Bipolar disorder, unspecified; F19.24 Other psychoactive substance dependence with psychoactive substance-induced mood disorder; I10 Essential (primary) hypertension; J43.9 Emphysema, unspecified; K21.9 Gastro-esophageal reflux disease without esophagitis; E78.5 Hyperlipidemia, unspecified; R64 Cachexia; Z79.82 Long term (current) use of aspirin; Z86.2 Personal history of diseases of the blood and blood-forming organs and certain disorders involving the immune mechanism; Z86.69 Personal history of other diseases of the nervous system and sense organs
CPT/HCPCS: 36415; 87389; 90688; 93005; 93010; G0008

== ENCOUNTER 2017-08-25 15:26 | Inpatient (IN) | payer OTHER ==
[2017-08-25 18:58] VITALS: BMI 25.0
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
[2017-08-26] MEDS ORDERED: hydrOXYzine PAMOATE 50 MG CAPSULE (FP) PO PRN (00:27)
[2017-08-26] MEDS ORDERED: MENTHOL/PHENOL 1 EACH UD MM PRN (00:27)
[2017-08-26] MEDS ORDERED: MAGNESIUM CITRATE 300 ML BOTTLE PO PRN (00:27)
[2017-08-26] MEDS ORDERED: NICOTINE POLACRILEX 2 MG GUM BC PRN (00:27)
[2017-08-26] MEDS ORDERED: chlordiazePOXIDE HCL 25 MG CAPSULE PO PRN (00:27)
[2017-08-26] MEDS ORDERED: P-EPHED 60MG/TRIPROLIDI 2.5MG TABLET PO PRN (00:27)
[2017-08-26] MEDS ORDERED: guaiFENesin/D-METHORPHAN HB 10 ML UNIT-DOSE CUPS PO PRN (00:27)
[2017-08-26] MEDS ORDERED: IBUPROFEN 400 MG TABLET (FP) PO PRN (00:27)
[2017-08-26] MEDS ORDERED: ACETAMINOPHEN 325 MG TABLET (FP) PO PRN (00:27)
[2017-08-26] MEDS ORDERED: MAGNESIUM HYDROX 2400MG/30ML ORAL SUSPENSION 30 ML CUP PO PRN (00:27)
[2017-08-26] MEDS ORDERED: LOPERAMIDE HCL 2 MG CAPSULE PO PRN (00:27)
[2017-08-26] MEDS ORDERED: MAG HYDROX/AL HYDROX/SIMETH 30 ML UNIT-DOSE CUP PO PRN (00:27)
[2017-08-26] MEDS ORDERED: ALBUTEROL SO4 18 GM HFA INHALER IH PRN (00:29)
[2017-08-26] MEDS: chlordiazePOXIDE HCL 25 MG CAPSULE PO SCH ×4 (06:24→22:25)
[2017-08-26] MEDS ORDERED: METHADONE HCL 10 MG TABLET PO SCH (09:30)
[2017-08-26 10:13] LABS: URINE APPEARANCE CLEAR; URINE BILIRUBIN NEGATIVE (<2.0 mg/dL); URINE COLOR STRAW; URINE GLUCOSE (UA) NEGATIVE (NEGATIVE); URINE KETONE NEGATIVE (NEGATIVE); URINE LEUK ESTERASE NEGATIVE (NEGATIVE); URINE NITRITE NEGATIVE (NEGATIVE); URINE PROTEIN NEGATIVE (NEGATIVE); URINE UROBILINOGEN NEGATIVE mg/dL (0.2-1.0)
[2017-08-26 10:16] LABS: HEMATOCRIT 30.4 % (35.4-49); HEMOGLOBIN 10.4 GM/dL (11.7-16.9); MCH 37.6 pg (25.7-33.7); MCHC 34.1 g/dl (32.0-35.9); MEAN CELL VOLUME 110.2 fl (80-96); MEAN PLT VOLUME 9.3 fl (7.5-11.1); PLATELET COUNT 176 K/MM3 (134-434); RBC 2.76 M/mm3 (4.00-5.60); RDW 17.6 % (11.9-15.9); WHITE BLOOD COUNT 4.2 K/mm3 (4.0-10.0)
[2017-08-26 10:18] LABS: ALBUMIN 3.6 g/dl (3.4-5.0); ANION GAP 12 (8-16); CALCIUM 8.2 mg/dL (8.5-10.1); CHLORIDE 116 mmol/L (98-107); CO2 22 mmol/L (21-32); GLUCOSE,RANDOM 98 mg/dL (74-106); POTASSIUM 3.9 mmol/L (3.5-5.1); SGOT/AST 129 U/L (15-37); SGPT/ALT 78 U/L (12-78); SODIUM 150 mmol/L (136-145)
[2017-08-26 10:20] LABS: ALK PHOS 175 U/L (45-117); BILIRUBIN,TOTAL 0.3 mg/dL (0.2-1.0); BLOOD UREA NITROGEN 55 mg/dL (7-18); CREATININE 1.5 mg/dL (0.7-1.3); TOT PROT 7.1 g/dl (6.4-8.2)
[2017-08-26] MEDS: PRENATAL VITAMINS W/ FOLIC ACID TABLET (FP) PO SCH (10:27)
[2017-08-26] MEDS: amLODIPine BESYLATE 10 MG TABLET (FP) PO SCH (10:27)
[2017-08-26] MEDS ORDERED: METHADONE HCL 40 MG DISPERSABLE TABLET ONE (10:27)
[2017-08-26] MEDS: ASPIRIN COATED 81 MG TABLET.EC PO SCH (10:27)
[2017-08-26] MEDS: PANTOPRAZOLE 40 MG TABLET (FP) PO SCH (10:27)
[2017-08-26] MEDS ORDERED: METHADONE HCL 10 MG TABLET ONE (10:28)
[2017-08-26] MEDS: LOSARTAN POTASSIUM 50 MG TABLET (FP) PO SCH ×2 (10:29→22:24)
[2017-08-26] MEDS: HYDROCHLOROTHIAZIDE 25 MG TABLET (FP) PO SCH ×2 (10:29→22:25)
[2017-08-26] MEDS: NICOTINE 14 MG/24 HOURS TOPICAL PATCH TD SCH (10:29)
[2017-08-26] MEDS: BUDESONIDE/FORMETEROL FUMARATE 160/4.5 mcg INHALER IH SCH ×2 (10:30→22:29)
[2017-08-26] MEDS ORDERED: METHADONE 40 MG, METHADONE 20 MG PO ONE (10:30)
[2017-08-26] MEDS: TIOTROPIUM BROMIDE 18 MCG CAPSULES IH SCH (10:31)
[2017-08-26] MEDS: FERROUS SO4 325 MG TABLET (FP) PO SCH (10:32)
[2017-08-26 10:47] LABS: ADD RBC MORPHOLOGY YES
--- NOTE | 2017-08-26 11:05 | CONSULT ---
[facility] Psychiatric Consult - Data Date of interview: 08/26/17 Admission source: [facility] Identifying data: This is a 52 year old AA male who is single father of one, domiciled. One of the several detox. admissions. Substance Abuse History: Patient reports drinking beer 1 six packs daily, liquor 3 quaters dailt, Xanax 4 mg daily. Psychiatric History: Patient reports was diagnosed as Bipolar and history of several psychiatric hospilatlizations in the past, [facility], [facility] and [facility], most recent at [facility] in 2016. Outpatient care provided by [facility] [place], and reports being prescribed Seroquel 200mg BID. Reports last dose was taken a week ago. Pt reports one suicide attempt in 1998 via overdose on Tylenol. Pt. denies suicidal and homicidal ideation at present. Physical/Sexual Abuse/Trauma History: Anemia, COPD, DM, alco. hepatitis, HTN, GERD. Mental Status Exam - Mental Status Exam Alert and Oriented to: Place, Person Cognitive Function: Grossly Intact Patient Appearance: Unkempt Mood: Sad, Irritable Affect: Mood Congruent Patient Behavior: Sedated, Fatigued, Cooperative Speech Pattern: Delayed, Slurred Voice Loudness: Normal Thought Process: Goal Oriented Thought Disorder: Not Present Hallucinations: Denies Suicidal Ideation: Denies Homicidal Ideation: Denies Insight/Judgement: Fair Sleep: Fair Appetite: Fair Muscle strength/Tone: Normal Psychiatric Findings - Problem List ([place] 1, 2,3) (1) Alcohol dependence Current Visit: Yes Status: Acute (2) Sedative hypnotic or anxiolytic dependence Current Visit: No Status: Acute (3) Bipolar disorder Current Visit: No Status: Chronic Comment: History. - Initial Treatment Plan Initial Treatment Plan: Detoxification in progress. Seroquel 100mg q hs reduce dosage to start. Patient having difficulty to complete interview due to fatigue and sedation, at this time Seroquel will not be ordered for the morning. He agreeable with plan. Benefits and side effects discussed.
[2017-08-26 11:22] LABS: ANISOCYTOSIS 1+; MACROCYTOSIS 2+
--- NOTE | 2017-08-26 11:53 | PN ---
[facility] CIWA - CIWA Score Nausea/Vomitin Muscle Tremors: 3 Anxiety: 3 Agitation: 2 Paroxysmal Sweats: 1-Minimal Palms Moist Orientation: 0-Oriented Tacttile Disturbances: 1-Very Mild Itch/Numbness Auditory Disturbances: 1-Very Mild Visual Disturbances: 0-None Headache: 2-Mild CIWA-Ar Total Score: 16 S Progress Note (SOAP) Subjective: ALERT,IRRITABLE,ANIOUS,INTERRUPTED SLEEP,TREMOR Objective: 08/26/17 11:49 Vital Signs Temperature 98.1 F 08/26/17 10:09 Pulse Rate 90 08/26/17 10:30 Respiratory Rate 20 08/26/17 10:30 Blood Pressure 137/85 08/26/17 10:09 O2 Sat by Pulse Oximetry (%) EKG NSR,NORMAL ECG PROLONG QT 426/484 NO CHEST PAIN,NO SOB,NO DIZZINESS Laboratory Last Values WBC 4.2 K/mm3 (4.0-10.0) 08/26/17 07:30 RBC 2.76 M/mm3 (4.00-5.60) L 08/26/17 07:30 Hgb 10.4 GM/dL (11.7-16.9) L 08/26/17 07:30 Hct 30.4 % (35.4-49) L 08/26/17 07:30 MCV 110.2 fl (80-96) H 08/26/17 07:30 MCH 37.6 pg (25.7-33.7) H 08/26/17 07:30 MCHC 34.1 g/dl (32.0-35.9) 08/26/17 07:30 RDW 17.6 % (11.9-15.9) H D 08/26/17 07:30 Plt Count 176 K/MM3 (134-434) D 08/26/17 07:30 MPV 9.3 fl (7.5-11.1) 08/26/17 07:30 Platelet Comment Adequate 08/26/17 07:30 Anisocytosis 1+ 08/26/17 07:30 Macrocytosis 2+ 08/26/17 07:30 Sodium 150 mmol/L (136-145) H 08/26/17 07:30 Potassium 3.9 mmol/L (3.5-5.1) 08/26/17 07:30 Chloride 116 mmol/L (98-107) H 08/26/17 07:30 Carbon Dioxide 22 mmol/L (21-32) D 08/26/17 07:30 Anion Gap 12 (8-16) 08/26/17 07:30 BUN 55 mg/dL (7-18) H D 08/26/17 07:30 Creatinine 1.5 mg/dL (0.7-1.3) H D 08/26/17 07:30 Creat Clearance w eGFR 48.77 (>60) 08/26/17 07:30 POC Glucometer 145 UNITS (80-120) 08/26/17 06:14 Random Glucose 98 mg/dL (74-106) D 08/26/17 07:30 Calcium 8.2 mg/dL (8.5-10.1) L 08/26/17 07:30 Total Bilirubin 0.3 mg/dL (0.2-1.0) D 08/26/17 07:30 AST 129 U/L (15-37) H 08/26/17 07:30 ALT 78 U/L (12-78) D 08/26/17 07:30 Alkaline Phosphatase 175 U/L (45-117) H D 08/26/17 07:30 Total Protein 7.1 g/dl (6.4-8.2) 08/26/17 07:30 Albumin 3.6 g/dl (3.4-5.0) 08/26/17 07:30 Urine Color Straw 08/26/17 08:00 Urine Appearance Clear 08/26/17 08:00 Urine pH 5.0 (5.0-8.0) 08/26/17 08:00 Ur Specific [place] 1.013 (1.001-1.035) 08/26/17 08:00 Urine Protein Negative (NEGATIVE) 08/26/17 08:00 Urine Glucose (UA) Negative (NEGATIVE) 08/26/17 08:00 Urine Ketones Negative (NEGATIVE) 08/26/17 08:00 Urine Blood Negative (NEGATIVE) 08/26/17 08:00 Urine Nitrite Negative (NEGATIVE) 08/26/17 08:00 Urine Bilirubin Negative (<2.0 mg/dL) 08/26/17 08:00 Urine Urobilinogen Negative mg/dL (0.2-1.0) 08/26/17 08:00 Ur Leukocyte Esterase Negative (NEGATIVE) 08/26/17 08:00 08/26/17 11:53 RPR PENDING Assessment: 08/26/17 11:53 WITHDRAWAL SYMPTOM Plan: CONTINUE DETOX
--- NOTE | 2017-08-26 12:04 | EKG ---
Test Reason : Blood Pressure : / mmHG Vent. Rate : 077 BPM Atrial Rate : 077 BPM P-R Int : 184 ms QRS Dur : 084 ms QT Int : 428 ms P-R-T Axes : 062 027 026 degrees QTc Int : 484 ms NORMAL SINUS RHYTHM NORMAL ECG WHEN COMPARED WITH ECG OF 09-JUN-2017 09:01, NONSPECIFIC T WAVE ABNORMALITY, WORSE IN ANTEROLATERAL LEADS Confirmed by THEODORE GARY, PAULETTE ([id number]) on 08/26/2017 12:04:22 PM Referred By: Confirmed By:PAULETTE JAIMES MD
[2017-08-26] MEDS ORDERED: MELATONIN 5 MG TABLETS PO PRN (22:00)
[2017-08-26] MEDS: THIAMINE HCL 100 MG TABLET (FP) PO SCH (22:25)
[2017-08-26] MEDS: TAMSULOSIN HCL 0.4 MG CAP.ER.24H (FP) PO SCH (22:25)
[2017-08-26] MEDS: ATORVASTATIN CA 20 MG TABLET (FP) PO SCH (22:25)
[2017-08-26] MEDS: QUEtiapine FUMARATE 100 MG TABLET (FP) PO SCH (22:25)
[2017-08-27] MEDS ORDERED: METHADONE HCL 40 MG DISPERSABLE TABLET ONE (04:14)
[2017-08-27] MEDS ORDERED: METHADONE HCL 10 MG TABLET ONE (04:14)
[2017-08-27] MEDS: chlordiazePOXIDE HCL 25 MG CAPSULE PO SCH ×4 (06:29→22:29)
[2017-08-27] MEDS: sitaGLIPtin PHOSPHATE 25 MG TABLET (FP) PO SCH (06:53)
[2017-08-27] MEDS: METHADONE 40 MG, METHADONE 20 MG PO SCH (08:01)
[2017-08-27] MEDS: FERROUS SO4 325 MG TABLET (FP) PO SCH (08:01)
[2017-08-27] MEDS: PRENATAL VITAMINS W/ FOLIC ACID TABLET (FP) PO SCH (11:07)
[2017-08-27] MEDS: HYDROCHLOROTHIAZIDE 25 MG TABLET (FP) PO SCH ×2 (11:08→22:29)
[2017-08-27] MEDS: amLODIPine BESYLATE 10 MG TABLET (FP) PO SCH (11:08)
[2017-08-27] MEDS: ASPIRIN COATED 81 MG TABLET.EC PO SCH (11:08)
[2017-08-27] MEDS: LOSARTAN POTASSIUM 50 MG TABLET (FP) PO SCH ×2 (11:08→22:29)
[2017-08-27] MEDS: TIOTROPIUM BROMIDE 18 MCG CAPSULES IH SCH (11:08)
[2017-08-27] MEDS: PANTOPRAZOLE 40 MG TABLET (FP) PO SCH (11:08)
[2017-08-27] MEDS: NICOTINE 14 MG/24 HOURS TOPICAL PATCH TD SCH (11:09)
[2017-08-27] MEDS: BUDESONIDE/FORMETEROL FUMARATE 160/4.5 mcg INHALER IH SCH ×2 (11:09→22:29)
--- NOTE | 2017-08-27 11:53 | PN ---
S CIWA - CIWA Score Nausea/Vomitin Muscle Tremors: 3 Anxiety: 2 Agitation: 2 Paroxysmal Sweats: 1-Minimal Palms Moist Orientation: 0-Oriented Tacttile Disturbances: 1-Very Mild Itch/Numbness Auditory Disturbances: 1-Very Mild Visual Disturbances: 0-None Headache: 2-Mild CIWA-Ar Total Score: 15 [facility] Progress Note (SOAP) Subjective: ALERT,IRRITABLE,ANXIOUS,INTERRUPTED SLEEP,TREMOR,PAIN IN THE LEFT THIGH Objective: 08/27/17 11:51 Vital Signs Temperature 96.3 F L 08/27/17 10:11 Pulse Rate 88 08/27/17 10:11 Respiratory Rate 16 08/27/17 10:11 Blood Pressure 124/92 08/27/17 10:11 O2 Sat by Pulse Oximetry (%) 08/27/17 11:52 BGM 182 Assessment: 08/27/17 11:52 WITHDRAWAL SYMPTOM Plan: CONTINUE DETOX,BGM MONITORING
[2017-08-27] MEDS: ATORVASTATIN CA 20 MG TABLET (FP) PO SCH (22:29)
[2017-08-27] MEDS: TAMSULOSIN HCL 0.4 MG CAP.ER.24H (FP) PO SCH (22:29)
[2017-08-27] MEDS: QUEtiapine FUMARATE 100 MG TABLET (FP) PO SCH (22:29)
[2017-08-27] MEDS: THIAMINE HCL 100 MG TABLET (FP) PO SCH (22:30)
[2017-08-28] MEDS ORDERED: METHADONE HCL 40 MG DISPERSABLE TABLET ONE (04:43)
[2017-08-28] MEDS ORDERED: METHADONE HCL 10 MG TABLET ONE (04:44)
[2017-08-28] MEDS: METHADONE 40 MG, METHADONE 20 MG PO SCH (05:31)
[2017-08-28] MEDS: chlordiazePOXIDE 5 MG CAPSULE PO SCH ×4 (05:31→22:29)
[2017-08-28] MEDS: sitaGLIPtin PHOSPHATE 25 MG TABLET (FP) PO SCH (07:45)
[2017-08-28] MEDS: FERROUS SO4 325 MG TABLET (FP) PO SCH (08:43)
[2017-08-28] MEDS: HYDROCHLOROTHIAZIDE 25 MG TABLET (FP) PO SCH ×2 (10:40→22:30)
[2017-08-28] MEDS: BUDESONIDE/FORMETEROL FUMARATE 160/4.5 mcg INHALER IH SCH ×2 (10:47→22:30)
[2017-08-28] MEDS: TIOTROPIUM BROMIDE 18 MCG CAPSULES IH SCH (10:47)
[2017-08-28] MEDS: amLODIPine BESYLATE 10 MG TABLET (FP) PO SCH (10:47)
[2017-08-28] MEDS: PRENATAL VITAMINS W/ FOLIC ACID TABLET (FP) PO SCH (10:48)
[2017-08-28] MEDS: PANTOPRAZOLE 40 MG TABLET (FP) PO SCH (10:48)
[2017-08-28] MEDS: LOSARTAN POTASSIUM 50 MG TABLET (FP) PO SCH ×2 (10:48→22:30)
[2017-08-28] MEDS: ASPIRIN COATED 81 MG TABLET.EC PO SCH (10:48)
[2017-08-28] MEDS: NICOTINE 14 MG/24 HOURS TOPICAL PATCH TD SCH (10:52)
--- NOTE | 2017-08-28 11:15 | PN ---
[facility] Progress Note (SOAP) Subjective: ALERT,IRRITABLE,ANXIOUS,INTERRUPTED SLEEP Objective: 08/28/17 11:13 Vital Signs Temperature 98.2 F 08/28/17 09:46 Pulse Rate 107 H 08/28/17 09:46 Respiratory Rate 18 08/28/17 09:46 Blood Pressure 118/87 08/28/17 09:46 O2 Sat by Pulse Oximetry (%) 08/28/17 11:13 BGM 155 Assessment: 08/28/17 11:14 WITHDRAWAL SYMPTOM Plan: CONTINUE DETOX,DISCHARGE IN AM
[2017-08-28] MEDS: THIAMINE HCL 100 MG TABLET (FP) PO SCH (22:29)
[2017-08-28] MEDS: QUEtiapine FUMARATE 100 MG TABLET (FP) PO SCH (22:29)
[2017-08-28] MEDS: ATORVASTATIN CA 20 MG TABLET (FP) PO SCH (22:30)
[2017-08-28] MEDS: TAMSULOSIN HCL 0.4 MG CAP.ER.24H (FP) PO SCH (22:30)
[2017-08-29] MEDS ORDERED: METHADONE HCL 40 MG DISPERSABLE TABLET ONE (04:51)
[2017-08-29] MEDS ORDERED: METHADONE HCL 10 MG TABLET ONE (04:51)
[2017-08-29] MEDS: chlordiazePOXIDE HCL 10 MG CAPSULE PO SCH ×2 (05:39→11:08)
[2017-08-29] MEDS: METHADONE 40 MG, METHADONE 20 MG PO SCH (05:39)
[2017-08-29] MEDS: FERROUS SO4 325 MG TABLET (FP) PO SCH (07:18)
[2017-08-29] MEDS: sitaGLIPtin PHOSPHATE 25 MG TABLET (FP) PO SCH (07:18)
[2017-08-29] MEDS: HYDROCHLOROTHIAZIDE 25 MG TABLET (FP) PO SCH (11:07)
[2017-08-29] MEDS: ASPIRIN COATED 81 MG TABLET.EC PO SCH (11:07)
[2017-08-29] MEDS: TIOTROPIUM BROMIDE 18 MCG CAPSULES IH SCH (11:07)
[2017-08-29] MEDS: LOSARTAN POTASSIUM 50 MG TABLET (FP) PO SCH (11:08)
[2017-08-29] MEDS: NICOTINE 14 MG/24 HOURS TOPICAL PATCH TD SCH (11:08)
[2017-08-29] MEDS: amLODIPine BESYLATE 10 MG TABLET (FP) PO SCH (11:08)
[2017-08-29] MEDS: PRENATAL VITAMINS W/ FOLIC ACID TABLET (FP) PO SCH (11:08)
[2017-08-29] MEDS: BUDESONIDE/FORMETEROL FUMARATE 160/4.5 mcg INHALER IH SCH (11:09)
[2017-08-29 13:59] VITALS: BP 115/78; PULSE 94; TEMP 97.8
--- NOTE | 2017-08-29 14:29 | PN ---
S Progress Note (SOAP) Subjective: Denies any complaints States "i feel ok" Objective: 08/29/17 14:28 A & O x 3 Gait steady No acute distress Vital Signs Temperature 97.8 F 08/29/17 13:59 Pulse Rate 94 H 08/29/17 13:59 Respiratory Rate 18 08/29/17 13:59 Blood Pressure 115/78 08/29/17 13:59 O2 Sat by Pulse Oximetry (%) Assessment: 08/29/17 14:28 detox successfully completed Plan: for d/c
--- NOTE | 2017-08-29 14:30 | DS ---
[facility] Detox Discharge Summary Admission Date: 08/25/17 Discharge Date: 08/29/17 - History Additional Comments: pt in no distress admitted to [facility] Rehab - Physical Exam Results Vital Signs: Vital Signs Temperature 97.8 F 08/29/17 13:59 Pulse Rate 94 H 08/29/17 13:59 Respiratory Rate 18 08/29/17 13:59 Blood Pressure 115/78 08/29/17 13:59 O2 Sat by Pulse Oximetry (%) Pertinent Admission Physical Exam Findings: withdrawal sx - Treatment Hospital Course: Detox Protocol Followed, Detoxed Safely, Responded well, Discharged Condition Good, Rehab Referral Accepted Patient has Accepted a Rehab Referral to: [facility] rehab - Medication Discharge Medications: Ambulatory Orders Multivitamins [Multivit ([facility] Formulary)] 1 tab PO DAILY 09/06/16 Cyanocobalamin [Vitamin B12 -] 100 mcg PO DAILY #30 tab 09/23/16 Famotidine 20 mg PO BID #60 tab 09/23/16 Quetiapine Fumarate [Seroquel -] 200 mg PO HS #30 tab 04/09/17 Ibuprofen [Motrin -] 400 mg PO Q6H PRN 06/08/17 Mineral Oil/Petrolatum,White [Artificial Tears Eye Ointment] 1 drop OP HS Amlodipine Besylate [Norvasc -] 10 mg PO DAILY #30 tablet 06/12/17 Potassium Chloride [Potassium Chloride Oral Liquid] 20 meq PO BID #10 cup Albuterol Sulfate Inhaler - [Ventolin HFA Inhaler -] 2 inh IH Q4H PRN #1 inh Amlodipine Besylate [Norvasc -] 10 mg PO DAILY #30 tablet 08/28/17 Aspirin [Aspirin EC] 81 mg PO DAILY #30 tablet. 08/28/17 Atorvastatin Ca [Lipitor] 20 mg PO HS #30 tablet 08/28/17 Budesonide/Formeterol Fumarate [SYMBICORT 160/4.5mcg -] 1 inh PO BID #1 inh Ferrous Sulfate [Feosol] 325 mg PO DAILY #90 ud 08/28/17 Hydrochlorothiazide 25 mg PO BID #60 tab 08/28/17 Losartan Potassium [Cozaar -] 50 mg PO BID #60 tab 08/28/17 Pantoprazole Sodium [Protonix -] 40 mg PO DAILY #30 tablet.ec 08/28/17 Sitagliptin Phosphate [Januvia -] 25 mg PO DAILY@0700 #30 tab 08/28/17 Tamsulosin HCl [Flomax -] 0.4 mg PO HS #30 tab 08/28/17 Tiotropium [place] [Spiriva] 1 puff IH DAILY cap 08/28/17 - Diagnosis (1) Alcohol dependence with uncomplicated withdrawal Status: Acute (2) Cocaine dependence Status: Acute Qualifiers: Substance use status: uncomplicated Qualified Code(s): F14.20 - Cocaine dependence, uncomplicated (3) DM2 (diabetes mellitus, type 2) Status: Acute (4) History of anemia Status: Acute (5) History of pancreatitis Status: Acute (6) Sedative hypnotic or anxiolytic dependence Status: Acute (7) COPD (chronic obstructive pulmonary disease) Status: Chronic Qualifiers: (8) Cannabis dependence Status: Chronic (9) GERD (gastroesophageal reflux disease) Status: Chronic Qualifiers: (10) Hypercholesteremia Status: Chronic (11) Hypertension Status: Chronic Qualifiers: (12) Methadone maintenance therapy patient Status: Chronic - AMA Did Patient Leave Against Medical Advice: No
== END 2017-08-29 13:50 | disposition other institution (70) | DRG 774 ==
LOC: YASAS 15:26 → Y6N 22:32
PROVIDERS: ADMIT Surgery; ATTEND Surgery
PROC: HZ2ZZZZ Detoxification Services for Substance Abuse Treatment (ICD-10-PCS; principal; 2017-08-25)
DX: F10.230 Alcohol dependence with withdrawal, uncomplicated (principal); F13.20 Sedative, hypnotic or anxiolytic dependence, uncomplicated; F14.20 Cocaine dependence, uncomplicated; F12.20 Cannabis dependence, uncomplicated; F31.9 Bipolar disorder, unspecified; I10 Essential (primary) hypertension; E78.00 Pure hypercholesterolemia, unspecified; J44.9 Chronic obstructive pulmonary disease, unspecified; Z87.19 Personal history of other diseases of the digestive system; Z86.2 Personal history of diseases of the blood and blood-forming organs and certain disorders involving the immune mechanism
CPT/HCPCS: 36415; 80053; 81003; 82962; 85027; 86593; 93005; 93010

== ENCOUNTER 2017-08-29 14:53 | Inpatient (IN) | payer OTHER ==
[2017-08-29] MEDS ORDERED: MENTHOL/PHENOL 1 EACH UD MM PRN (16:59)
[2017-08-29] MEDS ORDERED: MAGNESIUM HYDROX 2400MG/30ML ORAL SUSPENSION 30 ML CUP PO PRN (16:59)
[2017-08-29] MEDS ORDERED: NICOTINE POLACRILEX 2 MG GUM BUC PRN (16:59)
[2017-08-29] MEDS ORDERED: LOPERAMIDE HCL 2 MG CAPSULE PO PRN (16:59)
[2017-08-29] MEDS ORDERED: MAG HYDROX/AL HYDROX/SIMETH 30 ML UNIT-DOSE CUP PO PRN (16:59)
[2017-08-29] MEDS ORDERED: guaiFENesin/D-METHORPHAN HB 10 ML UNIT-DOSE CUPS PO PRN (16:59)
[2017-08-29] MEDS ORDERED: P-EPHED 60MG/TRIPROLIDI 2.5MG TABLET PO PRN (16:59)
[2017-08-29] MEDS ORDERED: MAGNESIUM CITRATE 300 ML BOTTLE PO PRN (16:59)
[2017-08-29] MEDS ORDERED: ACETAMINOPHEN 325 MG TABLET (FP) PO PRN (16:59)
[2017-08-29] MEDS: NICOTINE 21 MG/24 HOURS TOPICAL PATCH TD SCH (17:57)
--- NOTE | 2017-08-29 21:10 | PN ---
[facility] Progress Note Note: Psychietrist conditioner tender npte{ As per nursing report patient asking for his preasmission medications: Seroquel 200mg po qhs Seroquel 200mg po qhs ordered
[2017-08-29] MEDS: THIAMINE HCL 100 MG TABLET (FP) PO SCH (21:46)
[2017-08-29] MEDS: ATORVASTATIN CA 20 MG TABLET (FP) PO SCH (21:46)
[2017-08-29] MEDS: HYDROCHLOROTHIAZIDE 25 MG TABLET (FP) PO SCH (21:46)
[2017-08-29] MEDS: QUEtiapine FUMARATE 200 MG TABLET PO SCH (21:46)
[2017-08-29] MEDS: BUDESONIDE/FORMETEROL FUMARATE 160/4.5 mcg INHALER IH SCH (21:47)
[2017-08-29] MEDS ORDERED: MELATONIN 5 MG TABLETS PO PRN (22:00)
[2017-08-30] MEDS ORDERED: METHADONE HCL 10 MG TABLET ONE (05:56)
[2017-08-30] MEDS ORDERED: METHADONE HCL 40 MG DISPERSABLE TABLET ONE (05:56)
[2017-08-30] MEDS ORDERED: METHADONE 40 MG, METHADONE 20 MG PO ONE (06:00)
[2017-08-30] MEDS ORDERED: METHADONE HCL 10 MG TABLET PO SCH (06:00)
[2017-08-30] MEDS: TAMSULOSIN HCL 0.4 MG CAP.ER.24H (FP) PO SCH (09:00)
[2017-08-30] MEDS: ASPIRIN 81 MG CHEWABLE TABLETS PO SCH (09:53)
[2017-08-30] MEDS: BUDESONIDE/FORMETEROL FUMARATE 160/4.5 mcg INHALER IH SCH ×2 (09:53→21:33)
[2017-08-30] MEDS: TIOTROPIUM BROMIDE 18 MCG CAPSULES IH SCH (09:53)
[2017-08-30] MEDS: PANTOPRAZOLE 40 MG TABLET (FP) PO SCH (09:54)
[2017-08-30] MEDS: FERROUS SO4 325 MG TABLET (FP) PO SCH (09:54)
[2017-08-30] MEDS: amLODIPine BESYLATE 10 MG TABLET (FP) PO SCH (09:54)
[2017-08-30] MEDS: HYDROCHLOROTHIAZIDE 25 MG TABLET (FP) PO SCH ×2 (09:54→21:31)
[2017-08-30] MEDS: PRENATAL VITAMINS W/ FOLIC ACID TABLET (FP) PO SCH (09:54)
[2017-08-30] MEDS: NICOTINE 21 MG/24 HOURS TOPICAL PATCH TD SCH (09:55)
[2017-08-30] MEDS: hydrOXYzine PAMOATE 25 MG CAPSULE (FP) PO PRN (14:16)
[2017-08-30] MEDS: THIAMINE HCL 100 MG TABLET (FP) PO SCH (21:31)
[2017-08-30] MEDS: QUEtiapine FUMARATE 200 MG TABLET PO SCH (21:31)
[2017-08-30] MEDS: ATORVASTATIN CA 20 MG TABLET (FP) PO SCH (21:31)
[2017-08-30] MEDS: IBUPROFEN 400 MG TABLET (FP) PO PRN (21:58)
[2017-08-31] MEDS ORDERED: METHADONE HCL 40 MG DISPERSABLE TABLET ONE (04:12)
[2017-08-31] MEDS ORDERED: METHADONE HCL 10 MG TABLET ONE (04:12)
[2017-08-31] MEDS ORDERED: METHADONE HCL 10 MG TABLET PO SCH (06:00)
[2017-08-31] MEDS: METHADONE 40 MG, METHADONE 20 MG PO SCH (06:24)
[2017-08-31] MEDS: sitaGLIPtin PHOSPHATE 25 MG TABLET (FP) PO SCH (06:32)
[2017-08-31] MEDS: TIOTROPIUM BROMIDE 18 MCG CAPSULES IH SCH (10:06)
[2017-08-31] MEDS: NICOTINE 21 MG/24 HOURS TOPICAL PATCH TD SCH (10:06)
[2017-08-31] MEDS: FERROUS SO4 325 MG TABLET (FP) PO SCH (10:06)
[2017-08-31] MEDS: HYDROCHLOROTHIAZIDE 25 MG TABLET (FP) PO SCH ×2 (10:06→21:24)
[2017-08-31] MEDS: ASPIRIN 81 MG CHEWABLE TABLETS PO SCH (10:06)
[2017-08-31] MEDS: PANTOPRAZOLE 40 MG TABLET (FP) PO SCH (10:06)
[2017-08-31] MEDS: PRENATAL VITAMINS W/ FOLIC ACID TABLET (FP) PO SCH (10:06)
[2017-08-31] MEDS: amLODIPine BESYLATE 10 MG TABLET (FP) PO SCH (10:07)
[2017-08-31] MEDS: TAMSULOSIN HCL 0.4 MG CAP.ER.24H (FP) PO SCH (10:07)
[2017-08-31] MEDS: BUDESONIDE/FORMETEROL FUMARATE 160/4.5 mcg INHALER IH SCH ×2 (10:12→21:25)
--- NOTE | 2017-08-31 11:48 | HP ---
Psychiatrist Admission - Data Date of interview: 08/31/17 Admission source: 6N Identifying data: This is the second 5N inatie rehabilitaiton admission for this 52 year old single AA male father of one, unemployed and domiciled. Medical History: Hep , HTN, GERD, COPD, DM. On MMTP 50 mg po daily. Psychiatric History: Patient reports history of Bipolar Idosrder, several psychiatric hospitalizations ([facility], [facility], mostrecent in 2016 at [facility], sees the psychiatrist at [facility] and currently on Seroquel 200 mg po bid, reports he stopped medications when he relapsed to drinking, while at rehab. was started Seroquel 200 mg po hs, patient wants to continue with his current medication. Hisotry of suicidal attempts in the past OD with tylenol, in 1998. Physical/Sexual Abuse/Trauma History: Patient denies history ofsexual, physical and verbal abuse. Vital Signs: Vital Signs - 24 hr 08/30/17 08/31/17 08/31/17 22:00 00:30 03:30 Temperature Pulse Rate 81 Respiratory 18 20 Rate Blood Pressure 128/91 08/31/17 08/31/17 06:49 10:00 Temperature 98.1 F Pulse Rate 96 H 90 Respiratory 20 Rate Blood Pressure 103/77 120/86 Allergies/Adverse Reactions: Allergies Allergy/AdvReac Type Severity Reaction Status Date / Time No Known Allergies Allergy Verified 08/25/17 22:29 Date of last physical exam: 08/25/17 Concur with the findings of this exam: Yes - Substance Abuse/Tx History Hx Alcohol Use: Yes Hx Substance Use: Yes Substance Use Type: Tranquilizers (up to 4 mg daily.) Hx Substance Use Treatment: Yes Mental Status Exam - Mental Status Exam Alert and Oriented to: Time, Place, Person Cognitive Function: Good Patient Appearance: Well Groomed Mood: Depressed, Sad, Anxious Affect: Appropriate, Mood Congruent Patient Behavior: Fatigued, Appropriate, Cooperative Speech Pattern: Clear, Appropriate Voice Loudness: Normal Thought Process: Intact, Goal Oriented Thought Disorder: Not Present Hallucinations: Denies Suicidal Ideation: Denies Homicidal Ideation: Denies Insight/Judgement: Fair Sleep: Fair Appetite: Fair Muscle strength/Tone: Normal Gait/Station: Normal Psychiatric Findings - Problem List ([place] 1, 2,3) (1) Alcohol dependence Current Visit: No Status: Acute (2) Cocaine dependence Current Visit: No Status: Acute Qualifiers: Substance use status: uncomplicated Qualified Code(s): F14.20 - Cocaine dependence, uncomplicated (3) Benzodiazepine dependence Current Visit: No Status: Chronic (4) Bipolar disorder Current Visit: No Status: Chronic Comment: As per records / self-report.On medications.Non-adherent to OPD care. (5) Opioid dependence on agonist therapy Current Visit: No Status: Chronic - Initial Treatment Plan Initial Treatment Plan: Will continue Seroquel 200 mg po hs, add 50 mg po am, will monitor progress, adjust medication when indicated.
--- NOTE | 2017-08-31 11:50 | PN ---
[facility] Progress Note Note: Patient c/o abdominal discomfort and diarrhea x 1-2 days. Patient reports having history of c diff a few months ago. Laboratory Tests 08/31/17 06:23 POC Glucometer 189 Vital Signs Temperature 98.1 F 08/31/17 06:49 Pulse Rate 90 08/31/17 10:00 Respiratory Rate 20 08/31/17 06:49 Blood Pressure 120/86 08/31/17 10:00 O2 Sat by Pulse Oximetry (%) Obj: General: Alert and oriented x 3. In no distress. Skin: warm and dry and intact Car: S1S2 Resp: CTA BL GI: soft, BS+, NT A/P: Diarrhea Rule out C Diff Will check stool for c diff x one continue immodium prn continue oral fluids continue to monitor clinically
[2017-08-31] MEDS: QUEtiapine FUMARATE 200 MG TABLET PO SCH (21:24)
[2017-08-31] MEDS: ATORVASTATIN CA 20 MG TABLET (FP) PO SCH (21:24)
[2017-08-31] MEDS: THIAMINE HCL 100 MG TABLET (FP) PO SCH (21:24)
[2017-09-01] MEDS ORDERED: METHADONE HCL 10 MG TABLET ONE (06:34)
[2017-09-01] MEDS: METHADONE 40 MG, METHADONE 20 MG PO SCH (06:35)
[2017-09-01] MEDS: QUEtiapine FUMARATE 50 MG TABLET PO SCH (06:35)
[2017-09-01] MEDS ORDERED: METHADONE HCL 40 MG DISPERSABLE TABLET ONE (06:35)
[2017-09-01] MEDS: sitaGLIPtin PHOSPHATE 25 MG TABLET (FP) PO SCH ×2 (06:36→22:08)
[2017-09-01] MEDS: TAMSULOSIN HCL 0.4 MG CAP.ER.24H (FP) PO SCH (09:30)
[2017-09-01] MEDS: PANTOPRAZOLE 40 MG TABLET (FP) PO SCH (10:25)
[2017-09-01] MEDS: ASPIRIN 81 MG CHEWABLE TABLETS PO SCH (10:25)
[2017-09-01] MEDS: PRENATAL VITAMINS W/ FOLIC ACID TABLET (FP) PO SCH (10:25)
[2017-09-01] MEDS: BUDESONIDE/FORMETEROL FUMARATE 160/4.5 mcg INHALER IH SCH ×2 (10:26→21:05)
[2017-09-01] MEDS: FERROUS SO4 325 MG TABLET (FP) PO SCH (10:26)
[2017-09-01] MEDS: NICOTINE 21 MG/24 HOURS TOPICAL PATCH TD SCH (10:27)
[2017-09-01] MEDS: amLODIPine BESYLATE 10 MG TABLET (FP) PO SCH (10:28)
[2017-09-01] MEDS: HYDROCHLOROTHIAZIDE 25 MG TABLET (FP) PO SCH (10:28)
[2017-09-01] MEDS: TIOTROPIUM BROMIDE 18 MCG CAPSULES IH SCH (10:30)
[2017-09-01] MEDS ORDERED: DIPHENOXYLATE 2.5/ATROPINE.025 1 COMBO TABLET PO ONE (12:43)
--- NOTE | 2017-09-01 12:43 | PN ---
[facility] Progress Note Note: Patient on HCTZ 25mg BID and Norvasc 10 qd with low BP and ongoing diarrhea. Reports no relief with immodium. Vital Signs (72 hours) 08/29/17 08/29/17 08/30/17 15:54 20:30 01:04 Temperature 98.1 F 98.2 F Pulse Rate 95 H 85 Respiratory 18 18 18 Rate Blood Pressure 110/83 136/86 08/30/17 08/30/17 08/30/17 03:40 07:01 10:00 Temperature 97.6 F Pulse Rate 87 99 H Respiratory 18 18 Rate Blood Pressure 115/85 118/84 08/30/17 08/31/17 08/31/17 22:00 00:30 03:30 Temperature Pulse Rate 81 Respiratory 18 20 Rate Blood Pressure 128/91 08/31/17 08/31/17 08/31/17 06:49 10:00 21:00 Temperature 98.1 F Pulse Rate 96 H 90 84 Respiratory 20 Rate Blood Pressure 103/77 120/86 105/80 09/01/17 09/01/17 09/01/17 00:30 03:30 06:47 Temperature 98.0 F Pulse Rate 94 H Respiratory 18 18 16 Rate Blood Pressure 98/75 09/01/17 11:08 Temperature 98.0 F Pulse Rate 95 H Respiratory 18 Rate Blood Pressure 92/65 Laboratory Last Values POC Glucometer 189 UNITS (80-120) 08/31/17 06:23 pending lab results for C. diff lomotil increase fluids decrease HCTZ 25 mg BID to 25mg qd continue to monitor
[2017-09-01] MEDS: DIPHENOXYLATE 2.5/ATROPINE.025 1 COMBO TABLET PO PRN (14:27)
[2017-09-01] MEDS ORDERED: LOPERAMIDE HCL 2 MG CAPSULE PO ONE (21:04)
[2017-09-01] MEDS: THIAMINE HCL 100 MG TABLET (FP) PO SCH (21:05)
[2017-09-01] MEDS: ATORVASTATIN CA 20 MG TABLET (FP) PO SCH (21:05)
[2017-09-01] MEDS: hydrOXYzine PAMOATE 25 MG CAPSULE (FP) PO PRN (21:05)
[2017-09-01] MEDS: QUEtiapine FUMARATE 200 MG TABLET PO SCH (21:05)
[2017-09-02] MEDS: DIPHENOXYLATE 2.5/ATROPINE.025 1 COMBO TABLET PO PRN ×2 (01:02→11:44)
[2017-09-02] MEDS ORDERED: METHADONE HCL 40 MG DISPERSABLE TABLET ONE (04:08)
[2017-09-02] MEDS ORDERED: METHADONE HCL 10 MG TABLET ONE (04:08)
[2017-09-02] MEDS: METHADONE 40 MG, METHADONE 20 MG PO SCH (06:32)
[2017-09-02] MEDS: sitaGLIPtin PHOSPHATE 25 MG TABLET (FP) PO SCH (06:32)
[2017-09-02] MEDS: QUEtiapine FUMARATE 50 MG TABLET PO SCH (07:33)
[2017-09-02] MEDS: TAMSULOSIN HCL 0.4 MG CAP.ER.24H (FP) PO SCH (09:30)
[2017-09-02] MEDS ORDERED: HYDROCHLOROTHIAZIDE 25 MG TABLET (FP) PO SCH (10:00)
[2017-09-02] MEDS: ASPIRIN 81 MG CHEWABLE TABLETS PO SCH (10:16)
[2017-09-02] MEDS: FERROUS SO4 325 MG TABLET (FP) PO SCH (10:16)
[2017-09-02] MEDS: PRENATAL VITAMINS W/ FOLIC ACID TABLET (FP) PO SCH (10:16)
[2017-09-02] MEDS: PANTOPRAZOLE 40 MG TABLET (FP) PO SCH (10:16)
[2017-09-02] MEDS: TIOTROPIUM BROMIDE 18 MCG CAPSULES IH SCH (10:16)
[2017-09-02] MEDS: NICOTINE 21 MG/24 HOURS TOPICAL PATCH TD SCH (10:17)
[2017-09-02] MEDS: BUDESONIDE/FORMETEROL FUMARATE 160/4.5 mcg INHALER IH SCH ×2 (10:17→21:27)
[2017-09-02] MEDS: amLODIPine BESYLATE 10 MG TABLET (FP) PO SCH ×2 (10:18→11:48)
--- NOTE | 2017-09-02 10:49 | PN ---
S Progress Note Note: Stool for Cdiff toxin negative. Will continue Immodium prn as ordered. Continue to monitor clinically.
[2017-09-02] MEDS: HYDROCHLOROTHIAZIDE 25 MG TABLET (FP) PO SCH (11:48)
[2017-09-02] MEDS: THIAMINE HCL 100 MG TABLET (FP) PO SCH (21:26)
[2017-09-02] MEDS: ATORVASTATIN CA 20 MG TABLET (FP) PO SCH (21:26)
[2017-09-02] MEDS: QUEtiapine FUMARATE 200 MG TABLET PO SCH (21:26)
[2017-09-03] MEDS ORDERED: METHADONE HCL 40 MG DISPERSABLE TABLET ONE (03:27)
[2017-09-03] MEDS ORDERED: METHADONE HCL 10 MG TABLET ONE (03:27)
[2017-09-03] MEDS: METHADONE 40 MG, METHADONE 20 MG PO SCH (06:20)
[2017-09-03] MEDS: QUEtiapine FUMARATE 50 MG TABLET PO SCH (06:21)
[2017-09-03] MEDS: sitaGLIPtin PHOSPHATE 25 MG TABLET (FP) PO SCH (06:59)
[2017-09-03] MEDS: TAMSULOSIN HCL 0.4 MG CAP.ER.24H (FP) PO SCH (08:40)
[2017-09-03] MEDS: ASPIRIN 81 MG CHEWABLE TABLETS PO SCH (10:15)
[2017-09-03] MEDS: HYDROCHLOROTHIAZIDE 25 MG TABLET (FP) PO SCH (10:15)
[2017-09-03] MEDS: FERROUS SO4 325 MG TABLET (FP) PO SCH (10:15)
[2017-09-03] MEDS: TIOTROPIUM BROMIDE 18 MCG CAPSULES IH SCH (10:15)
[2017-09-03] MEDS: amLODIPine BESYLATE 10 MG TABLET (FP) PO SCH (10:15)
[2017-09-03] MEDS: PANTOPRAZOLE 40 MG TABLET (FP) PO SCH (10:15)
[2017-09-03] MEDS: NICOTINE 21 MG/24 HOURS TOPICAL PATCH TD SCH (10:16)
[2017-09-03] MEDS: PRENATAL VITAMINS W/ FOLIC ACID TABLET (FP) PO SCH (10:16)
[2017-09-03] MEDS: BUDESONIDE/FORMETEROL FUMARATE 160/4.5 mcg INHALER IH SCH ×2 (10:21→21:48)
--- NOTE | 2017-09-03 13:54 | PN ---
S Progress Note Note: Patient reports continues diarrhea. Reports with currently tx mild symptoms improvement. Denies abdominal pain, rectal pain, tarry stools, blood in the stools, EVANS, vertigo. Vital Signs Temperature 97.4 F L 09/03/17 07:15 Pulse Rate 95 H 09/03/17 10:00 Respiratory Rate 18 09/03/17 07:15 Blood Pressure 100/73 09/03/17 10:00 O2 Sat by Pulse Oximetry (%) 08/31/17 20:00 Clostridium difficile Antigen (EDWIGE) - Final Stool Clostridium difficile Toxin Assay - Final Patient AOx3 in no apparent distress Normal HR and Rhythm Lungs clear b/t BS x 4, non tender, non distended skin intact, without erythema and eruptions Plan: increase fluids stool culture continue to monitor
[2017-09-03] MEDS: ATORVASTATIN CA 20 MG TABLET (FP) PO SCH (21:47)
[2017-09-03] MEDS: THIAMINE HCL 100 MG TABLET (FP) PO SCH (21:47)
[2017-09-03] MEDS: QUEtiapine FUMARATE 200 MG TABLET PO SCH (21:49)
[2017-09-04] MEDS ORDERED: METHADONE HCL 10 MG TABLET ONE (03:12)
[2017-09-04] MEDS ORDERED: METHADONE HCL 40 MG DISPERSABLE TABLET ONE (03:12)
[2017-09-04] MEDS: METHADONE 40 MG, METHADONE 20 MG PO SCH (06:20)
[2017-09-04] MEDS: QUEtiapine FUMARATE 50 MG TABLET PO SCH (06:21)
[2017-09-04] MEDS: sitaGLIPtin PHOSPHATE 25 MG TABLET (FP) PO SCH (07:18)
[2017-09-04] MEDS: TAMSULOSIN HCL 0.4 MG CAP.ER.24H (FP) PO SCH (07:55)
[2017-09-04] MEDS: ASPIRIN 81 MG CHEWABLE TABLETS PO SCH (10:06)
[2017-09-04] MEDS: FERROUS SO4 325 MG TABLET (FP) PO SCH (10:06)
[2017-09-04] MEDS: BUDESONIDE/FORMETEROL FUMARATE 160/4.5 mcg INHALER IH SCH ×2 (10:06→21:20)
[2017-09-04] MEDS: PANTOPRAZOLE 40 MG TABLET (FP) PO SCH (10:06)
[2017-09-04] MEDS: PRENATAL VITAMINS W/ FOLIC ACID TABLET (FP) PO SCH (10:06)
[2017-09-04] MEDS: NICOTINE 21 MG/24 HOURS TOPICAL PATCH TD SCH (10:07)
[2017-09-04] MEDS: HYDROCHLOROTHIAZIDE 25 MG TABLET (FP) PO SCH (10:08)
[2017-09-04] MEDS: TIOTROPIUM BROMIDE 18 MCG CAPSULES IH SCH (10:08)
[2017-09-04] MEDS: amLODIPine BESYLATE 10 MG TABLET (FP) PO SCH (10:08)
[2017-09-04] MEDS: QUEtiapine FUMARATE 200 MG TABLET PO SCH (21:19)
[2017-09-04] MEDS: ATORVASTATIN CA 20 MG TABLET (FP) PO SCH (21:19)
[2017-09-04] MEDS: THIAMINE HCL 100 MG TABLET (FP) PO SCH (21:20)
[2017-09-05] MEDS ORDERED: QUEtiapine FUMARATE 25 MG TABLET (FP) ONE (05:08)
[2017-09-05] MEDS ORDERED: METHADONE HCL 40 MG DISPERSABLE TABLET ONE (05:09)
[2017-09-05] MEDS ORDERED: METHADONE HCL 10 MG TABLET ONE (05:09)
[2017-09-05] MEDS: METHADONE 40 MG, METHADONE 20 MG PO SCH (06:37)
[2017-09-05] MEDS: sitaGLIPtin PHOSPHATE 25 MG TABLET (FP) PO SCH (06:39)
[2017-09-05] MEDS: QUEtiapine FUMARATE 50 MG TABLET PO SCH (06:40)
[2017-09-05] MEDS: ASPIRIN 81 MG CHEWABLE TABLETS PO SCH (10:18)
[2017-09-05] MEDS: amLODIPine BESYLATE 10 MG TABLET (FP) PO SCH (10:18)
[2017-09-05] MEDS: NICOTINE 21 MG/24 HOURS TOPICAL PATCH TD SCH (10:21)
[2017-09-05] MEDS: HYDROCHLOROTHIAZIDE 25 MG TABLET (FP) PO SCH (10:21)
[2017-09-05] MEDS: TAMSULOSIN HCL 0.4 MG CAP.ER.24H (FP) PO SCH (10:21)
[2017-09-05] MEDS: FERROUS SO4 325 MG TABLET (FP) PO SCH (10:21)
[2017-09-05] MEDS: PRENATAL VITAMINS W/ FOLIC ACID TABLET (FP) PO SCH (10:21)
[2017-09-05] MEDS: PANTOPRAZOLE 40 MG TABLET (FP) PO SCH (10:22)
[2017-09-05] MEDS: TIOTROPIUM BROMIDE 18 MCG CAPSULES IH SCH (10:23)
[2017-09-05] MEDS: BUDESONIDE/FORMETEROL FUMARATE 160/4.5 mcg INHALER IH SCH ×2 (10:24→21:30)
[2017-09-05] MEDS: ATORVASTATIN CA 20 MG TABLET (FP) PO SCH (21:29)
[2017-09-05] MEDS: THIAMINE HCL 100 MG TABLET (FP) PO SCH (21:29)
[2017-09-05] MEDS: QUEtiapine FUMARATE 200 MG TABLET PO SCH (21:29)
[2017-09-06] MEDS ORDERED: METHADONE HCL 10 MG TABLET ONE (05:15)
[2017-09-06] MEDS ORDERED: METHADONE HCL 40 MG DISPERSABLE TABLET ONE (05:15)
[2017-09-06] MEDS: METHADONE 40 MG, METHADONE 20 MG PO SCH (06:30)
[2017-09-06] MEDS: QUEtiapine FUMARATE 50 MG TABLET PO SCH (06:30)
[2017-09-06] MEDS: sitaGLIPtin PHOSPHATE 25 MG TABLET (FP) PO SCH (06:30)
[2017-09-06] MEDS: TIOTROPIUM BROMIDE 18 MCG CAPSULES IH SCH (09:58)
[2017-09-06] MEDS: PANTOPRAZOLE 40 MG TABLET (FP) PO SCH (09:58)
[2017-09-06] MEDS: HYDROCHLOROTHIAZIDE 25 MG TABLET (FP) PO SCH (09:58)
[2017-09-06] MEDS: PRENATAL VITAMINS W/ FOLIC ACID TABLET (FP) PO SCH (09:58)
[2017-09-06] MEDS: ASPIRIN 81 MG CHEWABLE TABLETS PO SCH (09:58)
[2017-09-06] MEDS: NICOTINE 21 MG/24 HOURS TOPICAL PATCH TD SCH (09:59)
[2017-09-06] MEDS: FERROUS SO4 325 MG TABLET (FP) PO SCH (09:59)
[2017-09-06] MEDS: amLODIPine BESYLATE 10 MG TABLET (FP) PO SCH (09:59)
[2017-09-06] MEDS: TAMSULOSIN HCL 0.4 MG CAP.ER.24H (FP) PO SCH (09:59)
[2017-09-06] MEDS: BUDESONIDE/FORMETEROL FUMARATE 160/4.5 mcg INHALER IH SCH ×2 (10:01→21:22)
[2017-09-06] MEDS: THIAMINE HCL 100 MG TABLET (FP) PO SCH (21:22)
[2017-09-06] MEDS: QUEtiapine FUMARATE 200 MG TABLET PO SCH (21:22)
[2017-09-06] MEDS: ATORVASTATIN CA 20 MG TABLET (FP) PO SCH (21:22)
[2017-09-07] MEDS ORDERED: METHADONE HCL 10 MG TABLET ONE (05:37)
[2017-09-07] MEDS ORDERED: METHADONE HCL 40 MG DISPERSABLE TABLET ONE (05:38)
[2017-09-07] MEDS: METHADONE 40 MG, METHADONE 20 MG PO SCH (06:16)
[2017-09-07] MEDS: sitaGLIPtin PHOSPHATE 25 MG TABLET (FP) PO SCH (06:16)
[2017-09-07] MEDS: QUEtiapine FUMARATE 50 MG TABLET PO SCH (06:17)
[2017-09-07] MEDS: TAMSULOSIN HCL 0.4 MG CAP.ER.24H (FP) PO SCH (09:00)
[2017-09-07] MEDS: TIOTROPIUM BROMIDE 18 MCG CAPSULES IH SCH (09:45)
[2017-09-07] MEDS: BUDESONIDE/FORMETEROL FUMARATE 160/4.5 mcg INHALER IH SCH ×2 (09:45→21:30)
[2017-09-07] MEDS: ASPIRIN 81 MG CHEWABLE TABLETS PO SCH (09:46)
[2017-09-07] MEDS: FERROUS SO4 325 MG TABLET (FP) PO SCH (09:46)
[2017-09-07] MEDS: PANTOPRAZOLE 40 MG TABLET (FP) PO SCH (09:47)
[2017-09-07] MEDS: amLODIPine BESYLATE 10 MG TABLET (FP) PO SCH (09:47)
[2017-09-07] MEDS: NICOTINE 21 MG/24 HOURS TOPICAL PATCH TD SCH (09:47)
[2017-09-07] MEDS: HYDROCHLOROTHIAZIDE 25 MG TABLET (FP) PO SCH (09:47)
[2017-09-07] MEDS: PRENATAL VITAMINS W/ FOLIC ACID TABLET (FP) PO SCH (09:47)
--- NOTE | 2017-09-07 13:16 | PN ---
[facility] Progress Note Note: Microbiology 09/04/17 14:30 Salmonella/Shigella Culture - Final Stool NO GROWTH OF SALMONELLA OR SHIGELLA SPECIES OBTAINED Campylobacter Culture - Final NO GROWTH OF CAMPYLOBACTER SPECIES OBTAINED Yersinia Culture - Final NO GROWTH OF YERSINIA SPECIES OBTAINED Vibrio Culture - Final NO GROWTH OF VIBRIO SPECIES OBTAINED Escherichia coli 0157 Culture - Final NO GROWTH OF E COLI 0157 OBTAINED stool culture results negative continue to monitor
[2017-09-07] MEDS: IBUPROFEN 400 MG TABLET (FP) PO PRN (13:28)
[2017-09-07] MEDS: ATORVASTATIN CA 20 MG TABLET (FP) PO SCH (21:30)
[2017-09-07] MEDS: QUEtiapine FUMARATE 200 MG TABLET PO SCH (21:30)
[2017-09-07] MEDS: THIAMINE HCL 100 MG TABLET (FP) PO SCH (21:30)
[2017-09-08] MEDS ORDERED: METHADONE HCL 40 MG DISPERSABLE TABLET ONE (03:23)
[2017-09-08] MEDS ORDERED: METHADONE HCL 10 MG TABLET ONE (03:23)
[2017-09-08] MEDS: METHADONE 40 MG, METHADONE 20 MG PO SCH (06:02)
[2017-09-08] MEDS: QUEtiapine FUMARATE 50 MG TABLET PO SCH (06:02)
[2017-09-08] MEDS: sitaGLIPtin PHOSPHATE 25 MG TABLET (FP) PO SCH (06:03)
[2017-09-08] MEDS: TAMSULOSIN HCL 0.4 MG CAP.ER.24H (FP) PO SCH (07:53)
[2017-09-08] MEDS: PANTOPRAZOLE 40 MG TABLET (FP) PO SCH (10:09)
[2017-09-08] MEDS: FERROUS SO4 325 MG TABLET (FP) PO SCH (10:09)
[2017-09-08] MEDS: TIOTROPIUM BROMIDE 18 MCG CAPSULES IH SCH (10:09)
[2017-09-08] MEDS: PRENATAL VITAMINS W/ FOLIC ACID TABLET (FP) PO SCH (10:09)
[2017-09-08] MEDS: amLODIPine BESYLATE 10 MG TABLET (FP) PO SCH (10:09)
[2017-09-08] MEDS: ASPIRIN 81 MG CHEWABLE TABLETS PO SCH (10:09)
[2017-09-08] MEDS: BUDESONIDE/FORMETEROL FUMARATE 160/4.5 mcg INHALER IH SCH ×2 (10:09→21:36)
[2017-09-08] MEDS: HYDROCHLOROTHIAZIDE 25 MG TABLET (FP) PO SCH (10:09)
[2017-09-08] MEDS: NICOTINE 21 MG/24 HOURS TOPICAL PATCH TD SCH (10:10)
[2017-09-08] MEDS: ATORVASTATIN CA 20 MG TABLET (FP) PO SCH (21:36)
[2017-09-08] MEDS: THIAMINE HCL 100 MG TABLET (FP) PO SCH (21:36)
[2017-09-08] MEDS: QUEtiapine FUMARATE 200 MG TABLET PO SCH (21:36)
[2017-09-09] MEDS ORDERED: METHADONE HCL 40 MG DISPERSABLE TABLET ONE (05:54)
[2017-09-09] MEDS ORDERED: METHADONE HCL 10 MG TABLET ONE (05:54)
[2017-09-09] MEDS: METHADONE 40 MG, METHADONE 20 MG PO SCH (06:35)
[2017-09-09] MEDS: QUEtiapine FUMARATE 50 MG TABLET PO SCH (06:36)
[2017-09-09] MEDS: sitaGLIPtin PHOSPHATE 25 MG TABLET (FP) PO SCH (06:38)
[2017-09-09] MEDS: PRENATAL VITAMINS W/ FOLIC ACID TABLET (FP) PO SCH (10:18)
[2017-09-09] MEDS: HYDROCHLOROTHIAZIDE 25 MG TABLET (FP) PO SCH (10:18)
[2017-09-09] MEDS: TIOTROPIUM BROMIDE 18 MCG CAPSULES IH SCH (10:18)
[2017-09-09] MEDS: ASPIRIN 81 MG CHEWABLE TABLETS PO SCH (10:19)
[2017-09-09] MEDS: TAMSULOSIN HCL 0.4 MG CAP.ER.24H (FP) PO SCH (10:19)
[2017-09-09] MEDS: FERROUS SO4 325 MG TABLET (FP) PO SCH (10:19)
[2017-09-09] MEDS: amLODIPine BESYLATE 10 MG TABLET (FP) PO SCH (10:19)
[2017-09-09] MEDS: PANTOPRAZOLE 40 MG TABLET (FP) PO SCH (10:19)
[2017-09-09] MEDS: NICOTINE 21 MG/24 HOURS TOPICAL PATCH TD SCH (10:20)
[2017-09-09] MEDS: BUDESONIDE/FORMETEROL FUMARATE 160/4.5 mcg INHALER IH SCH ×2 (10:21→21:28)
[2017-09-09] MEDS: IBUPROFEN 400 MG TABLET (FP) PO PRN (11:32)
--- NOTE | 2017-09-09 11:38 | PN ---
[facility] Progress Note Note: Patient c/o gas and indigestion. Stool for c diff negative. Patient c/o diarrhea but forgets to inform RN after episode to see stool. Denies fever, nause and vomiting. Physical exam stable. Gi: soft, non-tender, no distention noted. Will order Simethicone 80mg every 4 hour prn and continue to monitor clinically.
[2017-09-09] MEDS: SIMETHICONE 80 MG TAB.CHEW (FP) PO PRN (14:41)
[2017-09-09] MEDS: ATORVASTATIN CA 20 MG TABLET (FP) PO SCH (21:28)
[2017-09-09] MEDS: THIAMINE HCL 100 MG TABLET (FP) PO SCH (21:28)
[2017-09-09] MEDS: QUEtiapine FUMARATE 200 MG TABLET PO SCH (21:28)
[2017-09-10] MEDS ORDERED: METHADONE HCL 40 MG DISPERSABLE TABLET ONE (05:06)
[2017-09-10] MEDS ORDERED: METHADONE HCL 10 MG TABLET ONE (05:06)
[2017-09-10] MEDS: METHADONE 40 MG, METHADONE 20 MG PO SCH (06:31)
[2017-09-10] MEDS: QUEtiapine FUMARATE 50 MG TABLET PO SCH (06:32)
[2017-09-10] MEDS: sitaGLIPtin PHOSPHATE 25 MG TABLET (FP) PO SCH (06:32)
[2017-09-10] MEDS: TAMSULOSIN HCL 0.4 MG CAP.ER.24H (FP) PO SCH (10:12)
[2017-09-10] MEDS: PANTOPRAZOLE 40 MG TABLET (FP) PO SCH (10:12)
[2017-09-10] MEDS: PRENATAL VITAMINS W/ FOLIC ACID TABLET (FP) PO SCH (10:12)
[2017-09-10] MEDS: TIOTROPIUM BROMIDE 18 MCG CAPSULES IH SCH (10:12)
[2017-09-10] MEDS: HYDROCHLOROTHIAZIDE 25 MG TABLET (FP) PO SCH (10:12)
[2017-09-10] MEDS: FERROUS SO4 325 MG TABLET (FP) PO SCH (10:12)
[2017-09-10] MEDS: ASPIRIN 81 MG CHEWABLE TABLETS PO SCH (10:12)
[2017-09-10] MEDS: amLODIPine BESYLATE 10 MG TABLET (FP) PO SCH (10:12)
[2017-09-10] MEDS: BUDESONIDE/FORMETEROL FUMARATE 160/4.5 mcg INHALER IH SCH ×2 (10:13→21:33)
[2017-09-10] MEDS: NICOTINE 21 MG/24 HOURS TOPICAL PATCH TD SCH (10:14)
--- NOTE | 2017-09-10 12:50 | PN ---
[facility] Progress Note Note: Patient schedule for d/c tomorrow. Home meds sent to pharmacy. Patient to follow up with PMD 1-2 weeks post discharge.
[2017-09-10] MEDS: SIMETHICONE 80 MG TAB.CHEW (FP) PO PRN (17:21)
[2017-09-10] MEDS: ATORVASTATIN CA 20 MG TABLET (FP) PO SCH (21:32)
[2017-09-10] MEDS: THIAMINE HCL 100 MG TABLET (FP) PO SCH (21:33)
[2017-09-10] MEDS: QUEtiapine FUMARATE 200 MG TABLET PO SCH (21:33)
[2017-09-10] MEDS: IBUPROFEN 400 MG TABLET (FP) PO PRN (21:34)
[2017-09-11] MEDS ORDERED: METHADONE HCL 40 MG DISPERSABLE TABLET ONE (06:51)
[2017-09-11] MEDS ORDERED: METHADONE HCL 10 MG TABLET ONE (06:51)
[2017-09-11] MEDS: sitaGLIPtin PHOSPHATE 25 MG TABLET (FP) PO SCH (06:54)
[2017-09-11] MEDS: METHADONE 40 MG, METHADONE 20 MG PO SCH (06:55)
[2017-09-11] MEDS: QUEtiapine FUMARATE 50 MG TABLET PO SCH (06:55)
[2017-09-11 07:07] VITALS: TEMP 98.3
--- NOTE | 2017-09-11 09:30 | PN ---
Psychiatric Progress Note Vital Signs: Vital Signs Period Temp Pulse Resp BP Sys/Lopez Pulse Ox Last 24 Hr 98.3 F 87-99 18-18 112-121/83-91 Date of Session: 09/11/17 Chief Complaint:: discharge visit HPI: Patient has addressed alcohol, nicotine dependence comorbid Bipolar disorder. ROS: anemia, COPD, Hypertension, hypercholesterolemia, GERD medically managed. Current Medications: Active Medications Generic Name Dose Route Start Last Admin Trade Name Freq PRN Reason Stop Dose Admin Acetaminophen 650 mg 08/29/17 16:59 09/04/17 14:35 Tylenol - PO 650 mg Q4H PRN Administration FEVER Al Hydroxide/Mg Hydroxide 30 ml 08/29/17 16:59 Mylanta Oral Suspension - PO Q6H PRN DYSPEPSIA Amlodipine Besylate 10 mg 09/02/17 11:30 09/10/17 10:12 Norvasc - PO 10 mg DAILY REBECCA Administration Aspirin 81 mg 08/30/17 10:00 09/10/17 10:12 Asa - PO 81 mg DAILY REBECCA Administration Atorvastatin Calcium 20 mg 08/29/17 22:00 09/10/17 21:32 Lipitor - PO 20 mg HS REBECCA Administration Budesonide/Formoterol Fumarate 2 puff 08/29/17 22:00 09/10/17 21:33 Symbicort 160/4.5mcg - IH 2 puff BID REBECCA Administration Eucalyptus/Menthol/Phenol/Sorbitol 1 each 08/29/17 16:59 Cepastat Lozenge - MM Q4H PRN SORE THROAT Ferrous Sulfate 325 mg 08/30/17 10:00 09/10/17 10:12 Feosol - PO 325 mg DAILY REBECCA Administration Guaifenesin 10 ml 08/29/17 16:59 Robitussin Dm - PO Q6H PRN COUGH Hydrochlorothiazide 25 mg 09/02/17 11:30 09/10/17 10:12 Hctz - PO Not Given DAILY REBECCA Hydroxyzine Pamoate 25 mg 08/29/17 16:59 09/01/17 21:05 Vistaril - PO 25 mg Q4H PRN Administration AGITATION Ibuprofen 400 mg 08/29/17 16:59 09/10/17 21:34 Motrin - PO 400 mg Q6H PRN Administration Pain Level 4-6 Magnesium Citrate 300 ml 08/29/17 16:59 Citroma - PO Q48H PRN CONSTIPATION Magnesium Hydroxide 30 ml 08/29/17 16:59 Milk Of Magnesia - PO DAILY PRN CONSTIPATION Melatonin 5 mg 08/29/17 22:00 Melatonin PO HS PRN INSOMNIA Methadone HCl 40 mg/ Methadone 60 mg 09/07/17 06:00 09/11/17 06:55 HCl 20 mg PO 60 mg DAILY@0600 REBECCA Administration Nicotine 21 mg 08/29/17 17:15 09/10/17 10:14 Nicoderm Patch - TD 21 mg DAILY REBECCA Administration Nicotine Polacrilex 2 mg 08/29/17 16:59 Nicorette Gum - BUC Q2H PRN NICOTINE REPLACEMENT RX Pantoprazole Sodium 40 mg 08/30/17 10:00 09/10/17 10:12 Protonix - PO 40 mg DAILY REBECCA Administration Multivit/Folic Acid/Iron 1 tab 08/30/17 10:00 09/10/17 10:12 Vitamins (Sjr) - PO 1 tab DAILY REBECCA Administration Pseudoephedrine/Triprolidine 1 combo 08/29/17 16:59 Actifed - PO TID PRN NASAL CONGESTION Quetiapine Fumarate 200 mg 08/29/17 22:00 09/10/17 21:33 Seroquel - PO 200 mg HS REBECCA Administration Quetiapine Fumarate 50 mg 09/01/17 07:00 09/11/17 06:55 Seroquel - PO 50 mg AM REBECCA Administration Simethicone 80 mg 09/09/17 11:33 09/10/17 17:21 Mylicon - PO 80 mg Q4H PRN Administration INDIGESTION Sitagliptin Phosphate 25 mg 08/30/17 07:00 09/11/17 06:54 Januvia - PO 25 mg DAILY@0700 REBECCA Administration Tamsulosin HCl 0.4 mg 08/30/17 08:30 09/10/17 10:12 Flomax - PO 0.4 mg DAILY@0830 REBECCA Administration Thiamine HCl 100 mg 08/29/17 22:00 09/10/17 21:33 Vitamin B1 - PO 100 mg HS REBECCA Administration Tiotropium [place] 1 puff 08/30/17 10:00 09/10/17 10:12 Spiriva - IH 1 puff DAILY REBECCA Administration Current Side Effect: No Lab tests ordered: No Lab tests reviewed: Yes Provider note:: Patient completed his treatment and met his goals, [facility], he gained insights into his addiction and motivated to continue maintain abstinence. He focused on importance of changing attitudes and utilize all supports available to prevent relapses. Seroquel well tolerated, scripts for 30 days supply provided, patient is stable for discharge. Total face to face time:: 35 Mental Status Exam - Mental Status Exam Alert and Oriented to: Time, Place, Person Cognitive Function: Good Patient Appearance: Well Groomed Mood: Hopeful Affect: Appropriate, Mood Congruent Patient Behavior: Appropriate, Cooperative Speech Pattern: Clear, Appropriate Voice Loudness: Normal Thought Process: Intact, Goal Oriented Thought Disorder: Not Present Hallucinations: Denies Suicidal Ideation: Denies Homicidal Ideation: Denies Insight/Judgement: Fair Sleep: Fair Appetite: Fair Muscle strength/Tone: Normal Gait/Station: Normal Psychiatric Treatment Plan - Problem List (1) Alcohol dependence Current Visit: Yes Qualifiers: Substance use status: uncomplicated Qualified Code(s): F10.20 - Alcohol dependence, uncomplicated (2) Cocaine dependence Current Visit: Yes Qualifiers: Substance use status: uncomplicated Qualified Code(s): F14.20 - Cocaine dependence, uncomplicated (3) Benzodiazepine dependence Current Visit: No (4) Bipolar disorder Current Visit: No Comment: As per records / self-report.On medications.Non- adherent to OPD care. (5) Opioid dependence on agonist therapy Current Visit: No
[2017-09-11] MEDS: BUDESONIDE/FORMETEROL FUMARATE 160/4.5 mcg INHALER IH SCH (09:42)
[2017-09-11] MEDS: HYDROCHLOROTHIAZIDE 25 MG TABLET (FP) PO SCH (09:44)
[2017-09-11] MEDS: amLODIPine BESYLATE 10 MG TABLET (FP) PO SCH (09:44)
[2017-09-11] MEDS: FERROUS SO4 325 MG TABLET (FP) PO SCH (09:44)
[2017-09-11] MEDS: TAMSULOSIN HCL 0.4 MG CAP.ER.24H (FP) PO SCH (09:44)
[2017-09-11] MEDS: PANTOPRAZOLE 40 MG TABLET (FP) PO SCH (09:44)
[2017-09-11] MEDS: ASPIRIN 81 MG CHEWABLE TABLETS PO SCH (09:44)
[2017-09-11] MEDS: NICOTINE 21 MG/24 HOURS TOPICAL PATCH TD SCH (09:45)
[2017-09-11] MEDS: PRENATAL VITAMINS W/ FOLIC ACID TABLET (FP) PO SCH (09:46)
[2017-09-11] MEDS: TIOTROPIUM BROMIDE 18 MCG CAPSULES IH SCH (09:46)
[2017-09-11 11:17] VITALS: BP 133/84; PULSE 65
== END 2017-09-11 10:21 | disposition home or self-care (01) | DRG 772 ==
LOC: YASAS 14:53 → Y5N 14:54
PROVIDERS: ADMIT Psychiatry & Neurology Psychiatry; ATTEND Psychiatry & Neurology Psychiatry
PROC: HZ42ZZZ Group Counseling for Substance Abuse Treatment, Cognitive-Behavioral (ICD-10-PCS; principal; 2017-08-29)
DX: F10.20 Alcohol dependence, uncomplicated (principal); F14.20 Cocaine dependence, uncomplicated; I10 Essential (primary) hypertension; K21.9 Gastro-esophageal reflux disease without esophagitis; E11.9 Type 2 diabetes mellitus without complications; Z79.84 Long term (current) use of oral hypoglycemic drugs; R19.7 Diarrhea, unspecified; R63.4 Abnormal weight loss; Z68.25 Body mass index [BMI] 25.0-25.9, adult; Z91.5 Personal history of self-harm
CPT/HCPCS: 82962; 87045; 87046; 87324; 87449

== ENCOUNTER 2018-01-01 15:03 | Inpatient (IN) | payer OTHER ==
[2018-01-01 16:19] VITALS: BMI 23.4
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
[2018-01-01] MEDS ORDERED: ALBUTEROL SO4 8 GM HFA INHALER IH PRN (19:13)
[2018-01-01] MEDS ORDERED: NICOTINE POLACRILEX 2 MG GUM BC PRN (19:15)
[2018-01-01] MEDS ORDERED: chlordiazePOXIDE HCL 25 MG CAPSULE PO PRN (19:15)
[2018-01-01] MEDS ORDERED: LOPERAMIDE HCL 2 MG CAPSULE PO PRN (19:15)
[2018-01-01] MEDS ORDERED: MAGNESIUM CITRATE 300 ML BOTTLE PO PRN (19:15)
[2018-01-01] MEDS ORDERED: P-EPHED 60MG/TRIPROLIDI 2.5MG TABLET PO PRN (19:15)
[2018-01-01] MEDS ORDERED: ACETAMINOPHEN 325 MG TABLET (FP) PO PRN (19:15)
[2018-01-01] MEDS ORDERED: hydrOXYzine PAMOATE 50 MG CAPSULE (FP) PO PRN (19:15)
[2018-01-01] MEDS ORDERED: guaiFENesin/D-METHORPHAN HB 10 ML UNIT-DOSE CUPS PO PRN (19:15)
[2018-01-01] MEDS ORDERED: MAG HYDROX/AL HYDROX/SIMETH 30 ML UNIT-DOSE CUP PO PRN (19:15)
[2018-01-01] MEDS ORDERED: MENTHOL/PHENOL 1 EACH UD MM PRN (19:15)
[2018-01-01] MEDS ORDERED: IBUPROFEN 400 MG TABLET (FP) PO PRN (19:15)
[2018-01-01] MEDS ORDERED: MAGNESIUM HYDROX 2400MG/30ML ORAL SUSPENSION 30 ML CUP PO PRN (19:15)
[2018-01-01] MEDS ORDERED: ALBUTEROL SO4 2.5/IPRATROPIUM 0.5 INH SOL 3 ML VIAL.NEB. NEB PRN (19:17)
[2018-01-01] MEDS ORDERED: INSULIN (NOVOLOG) ASPART 100 UNITS/ML 10ML VIAL ONE (22:00)
[2018-01-01] MEDS: ATORVASTATIN CA 20 MG TABLET (FP) PO SCH (22:26)
[2018-01-01] MEDS: THIAMINE HCL 100 MG TABLET (FP) PO SCH (22:26)
[2018-01-01] MEDS: BUDESONIDE/FORMETEROL FUMARATE 160/4.5 mcg INHALER IH SCH (22:26)
[2018-01-01] MEDS: INSULIN SLIDING SCALE (NOVOLOG) 1 VIAL SQ SCH (22:26)
[2018-01-01] MEDS: chlordiazePOXIDE HCL 25 MG CAPSULE PO SCH (22:26)
[2018-01-01] MEDS: HYDROCHLOROTHIAZIDE 25 MG TABLET (FP) PO SCH (22:26)
[2018-01-01] MEDS: MELATONIN 5 MG TABLETS PO PRN (22:27)
[2018-01-01] MEDS: LOSARTAN POTASSIUM 50 MG TABLET (FP) PO SCH (22:46)
[2018-01-02] MEDS: chlordiazePOXIDE HCL 25 MG CAPSULE PO SCH ×4 (05:17→22:19)
[2018-01-02] MEDS ORDERED: METHADONE HCL 10 MG TABLET PO SCH (07:30)
[2018-01-02] MEDS ORDERED: METHADONE HCL 10 MG TABLET ONE (07:33)
[2018-01-02] MEDS ORDERED: METHADONE HCL 40 MG DISPERSABLE TABLET ONE (07:34)
[2018-01-02] MEDS ORDERED: INSULIN (NOVOLOG) ASPART 100 UNITS/ML 10ML VIAL ONE ×2 (07:35→17:06)
[2018-01-02] MEDS: METHADONE 40 MG, METHADONE 20 MG PO SCH (07:41)
[2018-01-02] MEDS: sitaGLIPtin PHOSPHATE 25 MG TABLET (FP) PO SCH (07:41)
[2018-01-02] MEDS: INSULIN SLIDING SCALE (NOVOLOG) 1 VIAL SQ SCH ×4 (07:46→21:39)
[2018-01-02] MEDS: TAMSULOSIN HCL 0.4 MG CAP.ER.24H (FP) PO SCH (09:25)
--- NOTE | 2018-01-02 10:15 | PN ---
S CIWA - CIWA Score Nausea/Vomitin-No Nausea/No Vomiting Muscle Tremors: 3 Anxiety: 4-Mod. Anxious/Guarded Agitation: 5 Paroxysmal Sweats: 1-Minimal Palms Moist Orientation: 0-Oriented Tacttile Disturbances: 0-None Auditory Disturbances: 0-None Visual Disturbances: 0-None Headache: 0-None Present CIWA-Ar Total Score: 13 BHS Progress Note (SOAP) Subjective: ANXIETY, SWEATS, TREMORS,FATIGUE,INTERMITTENT SLEEP. Objective: 01/02/18 10:14 Vital Signs 01/02/18 01/02/18 01/02/18 02:30 03:00 03:30 Temperature Pulse Rate 82 81 Respiratory 18 18 73 H Rate Blood Pressure 01/02/18 01/02/18 01/02/18 04:00 04:30 05:00 Temperature Pulse Rate 73 75 77 Respiratory 18 18 18 Rate Blood Pressure 01/02/18 01/02/18 01/02/18 05:30 05:57 06:00 Temperature 98.2 F Pulse Rate 78 76 76 Respiratory 18 18 18 Rate Blood Pressure 100/62 01/02/18 01/02/18 01/02/18 06:30 07:00 07:30 Temperature Pulse Rate 74 72 77 Respiratory 18 18 18 Rate Blood Pressure 01/02/18 01/02/18 01/02/18 08:00 08:30 09:10 Temperature 96.5 F L Pulse Rate 85 70 71 Respiratory 18 18 Rate Blood Pressure 112/73 Laboratory Tests 01/01/18 01/02/18 21:57 05:16 POC Glucometer 182 211 OTHER LABS PENDING Assessment: 01/02/18 10:14 WITHDRAWAL SX Plan: CONTINUE DETOX
[2018-01-02] MEDS: amLODIPine BESYLATE 10 MG TABLET (FP) PO SCH (10:49)
[2018-01-02] MEDS: PANTOPRAZOLE 40 MG TABLET (FP) PO SCH (10:49)
[2018-01-02] MEDS: RANITIDINE HCL 150 MG TABLET (FP) PO SCH (10:49)
[2018-01-02] MEDS: LOSARTAN POTASSIUM 50 MG TABLET (FP) PO SCH ×2 (10:49→22:20)
[2018-01-02] MEDS: NICOTINE 14 MG/24 HOURS TOPICAL PATCH TD SCH (10:49)
[2018-01-02] MEDS: HYDROCHLOROTHIAZIDE 25 MG TABLET (FP) PO SCH ×2 (10:49→22:20)
[2018-01-02] MEDS: ASPIRIN COATED 81 MG TABLET.EC PO SCH (10:49)
[2018-01-02] MEDS: FERROUS SO4 325 MG TABLET (FP) PO SCH (10:49)
[2018-01-02 10:50] LABS: HEMATOCRIT 31.4 % (35.4-49); HEMOGLOBIN 10.5 GM/dL (11.7-16.9); MCH 34.6 pg (25.7-33.7); MCHC 33.3 g/dl (32.0-35.9); MEAN CELL VOLUME 103.8 fl (80-96); MEAN PLT VOLUME 10.4 fl (7.5-11.1); PLATELET COUNT 101 K/MM3 (134-434); RBC 3.03 M/mm3 (4.00-5.60); WHITE BLOOD COUNT 2.8 K/mm3 (4.0-10.0)
[2018-01-02 10:56] LABS: URINE APPEARANCE CLEAR; URINE BILIRUBIN NEGATIVE (<2.0 mg/dL); URINE COLOR LTYELLOW; URINE GLUCOSE (UA) NEGATIVE (NEGATIVE); URINE KETONE NEGATIVE (NEGATIVE); URINE LEUK ESTERASE NEGATIVE (NEGATIVE); URINE NITRITE NEGATIVE (NEGATIVE); URINE PROTEIN NEGATIVE (NEGATIVE); URINE UROBILINOGEN NEGATIVE mg/dL (0.2-1.0)
[2018-01-02] MEDS: BUDESONIDE/FORMETEROL FUMARATE 160/4.5 mcg INHALER IH SCH ×2 (10:56→22:20)
[2018-01-02] MEDS: PRENATAL VITAMINS W/ FOLIC ACID TABLET (FP) PO SCH (10:57)
[2018-01-02 11:15] LABS: ALBUMIN 3.6 g/dl (3.4-5.0); ALK PHOS 279 U/L (45-117); ANION GAP 11 MMOL/L (8-16); BILIRUBIN,TOTAL 0.5 mg/dL (0.2-1); BLOOD UREA NITROGEN 72 mg/dL (7-18); CALCIUM 8.6 mg/dL (8.5-10.1); CHLORIDE 110 mmol/L (98-107); CO2 22 mmol/L (21-32); CREATININE 2.4 mg/dL (0.55-1.3); GLUCOSE,RANDOM 186 mg/dL (74-106); POTASSIUM 4.1 mmol/L (3.5-5.1); SGOT/AST 207 U/L (15-37); SGPT/ALT 254 U/L (13-61); SODIUM 143 mmol/L (136-145); TOT PROT 7.2 g/dl (6.4-8.2)
--- NOTE | 2018-01-02 14:37 | CONSULT ---
[facility] Psychiatric Consult - Data Date of interview: 01/02/18 Admission source: [facility] Identifying data: Another admission to [facility] for this 52 y/o AA male self- referred for detoxification treatment (alcohol dependence).Admitted to [address] [place] [address].Patient is single,a father of one,domiciled and dependent on " panhandling " for financial support. Substance Abuse History: Confirmed by the patient in this session.Details in current [facility] report : Smoking history: Current every day smoker. Have you smoked in the past 12 months: Yes. Aproximately how many cigarettes per day: 10. Cigars Per Day: 0. Hx Chewing Tobacco Use: No. Initiated information on smoking cessation: Yes. 'Breaking Loose' booklet given: 01/01/18. - Substance & Tx. History. Hx Alcohol Use: Yes. Hx Substance Use: Yes. Substance Use Type : Alcohol. Hx Substance Use Treatment: Yes (DETOX AND REHAB: 08/25/17-09/11/17). - Substances Abused. Alcohol. Route: Oral. Frequency: Daily. Amount used : 2 1/4 VODKA. Age of first use: 15. Date of Last Use: 01/01/18 Medical History: Medical profile is consistent for hypercholesterolemia,anemia, COPD,diabetes mellitus,alcoholic hepatitis,hypertension,GERD,antecedent of lung surgery and a history of appendectomy. Psychiatric History: Patient reports a history of multiple psychiatric hospitalizations ([facility]).Diagnosed with Bipolar Disorder.Still on seroquel 200 mg po bid (self-report).Mr Whitmore states that he sees a psychiatrist at the [facility] in [facility]. Patient endorses a remote history of suicidal ideation to jump off a roof years ago (no attempts).Currently on methadone maintenance (60 mg/day) at [facility] ([facility]). Physical/Sexual Abuse/Trauma History: Patient denies. Additional Comment: Urine Drug Screen Results: OPI-Opiates, BZO-Benzodiazepines , MTD-Methadone.Noted. Mental Status Exam - Mental Status Exam Alert and Oriented to: Time, Place, Person Cognitive Function: Grossly Intact Patient Appearance: Well Groomed Mood: Nervous, Withdrawn Affect: Mood Congruent Patient Behavior: Sedated (mildly sedated), Fatigued, Cooperative Speech Pattern: Delayed, Slurred Voice Loudness: Normal Thought Process: Goal Oriented Thought Disorder: Not Present Hallucinations: Denies Suicidal Ideation: Denies Homicidal Ideation: Denies Insight/Judgement: Poor Sleep: Poorly Appetite: Good Muscle strength/Tone: Normal Gait/Station: Normal Psychiatric Findings - Problem List (Delta 1, 2,3) (1) Opioid dependence on agonist therapy Current Visit: Yes Status: Chronic (2) Alcohol dependence with uncomplicated withdrawal Current Visit: Yes Status: Acute (3) Nicotine dependence Current Visit: Yes Status: Chronic Qualifiers: Nicotine product type: cigarettes Substance use status: in withdrawal Qualified Code(s): F17.213 - Nicotine dependence, cigarettes, with withdrawal (4) Bipolar disorder Current Visit: Yes Status: Chronic Comment: History. (5) Drug-induced mood disorder Current Visit: Yes Status: Suspected (6) Insomnia Current Visit: Yes Status: Acute - Initial Treatment Plan Initial Treatment Plan: Psychoeducation.Sleep hygiene.Detoxification in progress.Seroquel is reduced to 100 mg po hs (in view of mild sedation).Side effects/benefits discussed with the patient.Mr Whitmore agrees to this careplan.Observation.
--- NOTE | 2018-01-02 15:41 | EKG ---
Test Reason : Blood Pressure : / mmHG Vent. Rate : 076 BPM Atrial Rate : 076 BPM P-R Int : 194 ms QRS Dur : 092 ms QT Int : 426 ms P-R-T Axes : 053 036 042 degrees QTc Int : 479 ms NORMAL SINUS RHYTHM NORMAL ECG WHEN COMPARED WITH ECG OF 26-AUG-2017 02:49, NO SIGNIFICANT CHANGE WAS FOUND Confirmed by MD Burrell Daniel ([id number]) on 01/02/2018 3:41:00 PM Referred By: Confirmed By:Dejan Burrell MD
[2018-01-02] MEDS: THIAMINE HCL 100 MG TABLET (FP) PO SCH (22:19)
[2018-01-02] MEDS: ATORVASTATIN CA 20 MG TABLET (FP) PO SCH (22:20)
[2018-01-02] MEDS: MELATONIN 5 MG TABLETS PO PRN (22:20)
--- NOTE | 2018-01-02 22:32 | PN ---
[facility] Progress Note Note: Psychiatric nurse practitioner applications sales consultant note: Chart reviewed. Dr. Maier note read and appreciated. Seroquel 100mg qhs ordered.
[2018-01-02] MEDS: QUEtiapine FUMARATE 100 MG TABLET (FP) PO SCH (22:44)
[2018-01-03] MEDS ORDERED: METHADONE HCL 10 MG TABLET ONE (03:28)
[2018-01-03] MEDS ORDERED: METHADONE HCL 40 MG DISPERSABLE TABLET ONE (03:29)
[2018-01-03] MEDS: chlordiazePOXIDE HCL 25 MG CAPSULE PO SCH ×3 (05:57→17:26)
[2018-01-03] MEDS: METHADONE 40 MG, METHADONE 20 MG PO SCH (05:57)
[2018-01-03] MEDS ORDERED: INSULIN (NOVOLOG) ASPART 100 UNITS/ML 10ML VIAL ONE ×3 (07:42→22:22)
[2018-01-03] MEDS: sitaGLIPtin PHOSPHATE 25 MG TABLET (FP) PO SCH (07:43)
[2018-01-03] MEDS: INSULIN SLIDING SCALE (NOVOLOG) 1 VIAL SQ SCH ×4 (07:44→22:21)
[2018-01-03] MEDS: TAMSULOSIN HCL 0.4 MG CAP.ER.24H (FP) PO SCH (09:18)
[2018-01-03] MEDS: PRENATAL VITAMINS W/ FOLIC ACID TABLET (FP) PO SCH (10:17)
[2018-01-03] MEDS: PANTOPRAZOLE 40 MG TABLET (FP) PO SCH (10:17)
[2018-01-03] MEDS: FERROUS SO4 325 MG TABLET (FP) PO SCH (10:17)
[2018-01-03] MEDS: ASPIRIN COATED 81 MG TABLET.EC PO SCH (10:17)
[2018-01-03] MEDS: LOSARTAN POTASSIUM 50 MG TABLET (FP) PO SCH ×2 (10:17→22:22)
[2018-01-03] MEDS: RANITIDINE HCL 150 MG TABLET (FP) PO SCH (10:17)
[2018-01-03] MEDS: HYDROCHLOROTHIAZIDE 25 MG TABLET (FP) PO SCH ×2 (10:17→22:21)
[2018-01-03] MEDS: amLODIPine BESYLATE 10 MG TABLET (FP) PO SCH (10:17)
[2018-01-03] MEDS: BUDESONIDE/FORMETEROL FUMARATE 160/4.5 mcg INHALER IH SCH ×2 (10:18→22:22)
[2018-01-03] MEDS: NICOTINE 14 MG/24 HOURS TOPICAL PATCH TD SCH (10:18)
--- NOTE | 2018-01-03 13:47 | PN ---
[facility] CIWA - CIWA Score Nausea/Vomitin Muscle Tremors: 3 Anxiety: 2 Agitation: 3 Paroxysmal Sweats: 2 Orientation: 0-Oriented Tacttile Disturbances: 0-None Auditory Disturbances: 0-None Visual Disturbances: 0-None Headache: 3-Moderate CIWA-Ar Total Score: 15 S Progress Note (SOAP) Subjective: Headache (7.5/10), chills, sweating, dry mouth, interrupted sleep Objective: 01/03/18 13:42 Last Vital Signs Temp Pulse Resp BP Pulse Ox 97 F L 83 18 115/76 01/03/18 13:30 01/03/18 13:30 01/03/18 13:30 01/03/18 13:30 Laboratory Tests 01/01/18 01/02/18 01/02/18 21:57 05:16 07:50 WBC 2.8 L RBC 3.03 L Hgb 10.5 L Hct 31.4 L MCV 103.8 H MCH 34.6 H MCHC 33.3 RDW 15.0 D Plt Count 101 L D MPV 10.4 D Sodium Potassium Chloride Carbon Dioxide Anion Gap BUN Creatinine Creat Clearance w eGFR POC Glucometer 182 211 Random Glucose Calcium Total Bilirubin AST ALT Alkaline Phosphatase Total Protein Albumin Urine Color Urine Appearance Urine pH Ur Specific [place] Urine Protein Urine Glucose (UA) Urine Ketones Urine Blood Urine Nitrite Urine Bilirubin Urine Urobilinogen Ur Leukocyte Esterase RPR Titer 01/02/18 01/02/18 01/02/18 07:50 07:50 08:50 WBC RBC Hgb Hct MCV MCH MCHC RDW Plt Count MPV Sodium 143 Potassium 4.1 Chloride 110 H Carbon Dioxide 22 Anion Gap 11 BUN 72 H Creatinine 2.4 H Creat Clearance w eGFR 28.35 POC Glucometer Random Glucose 186 H Calcium 8.6 Total Bilirubin 0.5 AST 207 H ALT 254 H Alkaline Phosphatase 279 H Total Protein 7.2 Albumin 3.6 Urine Color Ltyellow Urine Appearance Clear Urine pH 5.0 Ur Specific [place] 1.013 Urine Protein Negative Urine Glucose (UA) Negative Urine Ketones Negative Urine Blood Negative Urine Nitrite Negative Urine Bilirubin Negative Urine Urobilinogen Negative Ur Leukocyte Esterase Negative RPR Titer Nonreactive 01/02/18 01/02/18 01/03/18 16:19 21:01 05:54 WBC RBC Hgb Hct MCV MCH MCHC RDW Plt Count MPV Sodium Potassium Chloride Carbon Dioxide Anion Gap BUN Creatinine Creat Clearance w eGFR POC Glucometer 136 100 223 Random Glucose Calcium Total Bilirubin AST ALT Alkaline Phosphatase Total Protein Albumin Urine Color Urine Appearance Urine pH Ur Specific [place] Urine Protein Urine Glucose (UA) Urine Ketones Urine Blood Urine Nitrite Urine Bilirubin Urine Urobilinogen Ur Leukocyte Esterase RPR Titer 01/03/18 11:58 WBC RBC Hgb Hct MCV MCH MCHC RDW Plt Count MPV Sodium Potassium Chloride Carbon Dioxide Anion Gap BUN Creatinine Creat Clearance w eGFR POC Glucometer 115 Random Glucose Calcium Total Bilirubin AST ALT Alkaline Phosphatase Total Protein Albumin Urine Color Urine Appearance Urine pH Ur Specific [place] Urine Protein Urine Glucose (UA) Urine Ketones Urine Blood Urine Nitrite Urine Bilirubin Urine Urobilinogen Ur Leukocyte Esterase RPR Titer Labs reviewed: elevated glucose, elevated LFTs and ANGELO 01/03/18 13:47 Assessment: 01/03/18 13:48 Withdrawal symptoms Noted with elevated glucose due to DMT2, elevated LFTs and ANGELO Plan: Continue detox Elevated glucose due to DMT2: continue present regimen Elevated LFTs: repeat LFTs ANGELO: encouraged PO water hydration, repeat BMP
[2018-01-03] MEDS: ATORVASTATIN CA 20 MG TABLET (FP) PO SCH (22:21)
[2018-01-03] MEDS: THIAMINE HCL 100 MG TABLET (FP) PO SCH (22:21)
[2018-01-03] MEDS: chlordiazePOXIDE 5 MG CAPSULE PO SCH (22:21)
[2018-01-03] MEDS: QUEtiapine FUMARATE 100 MG TABLET (FP) PO SCH (22:23)
[2018-01-03] MEDS: MELATONIN 5 MG TABLETS PO PRN (22:26)
[2018-01-04] MEDS ORDERED: METHADONE HCL 40 MG DISPERSABLE TABLET ONE (04:50)
[2018-01-04] MEDS ORDERED: METHADONE HCL 10 MG TABLET ONE (04:50)
[2018-01-04] MEDS: chlordiazePOXIDE 5 MG CAPSULE PO SCH ×3 (05:04→17:25)
[2018-01-04] MEDS: METHADONE 40 MG, METHADONE 20 MG PO SCH (05:04)
[2018-01-04] MEDS ORDERED: INSULIN (NOVOLOG) ASPART 100 UNITS/ML 10ML VIAL ONE ×2 (07:55→16:44)
[2018-01-04] MEDS: sitaGLIPtin PHOSPHATE 25 MG TABLET (FP) PO SCH (08:04)
[2018-01-04] MEDS: INSULIN SLIDING SCALE (NOVOLOG) 1 VIAL SQ SCH ×4 (08:04→21:32)
[2018-01-04] MEDS: TAMSULOSIN HCL 0.4 MG CAP.ER.24H (FP) PO SCH (09:25)
[2018-01-04] MEDS: LOSARTAN POTASSIUM 50 MG TABLET (FP) PO SCH ×2 (10:33→22:14)
[2018-01-04] MEDS: RANITIDINE HCL 150 MG TABLET (FP) PO SCH (10:33)
[2018-01-04] MEDS: amLODIPine BESYLATE 10 MG TABLET (FP) PO SCH (10:33)
[2018-01-04] MEDS: PRENATAL VITAMINS W/ FOLIC ACID TABLET (FP) PO SCH (10:33)
[2018-01-04] MEDS: HYDROCHLOROTHIAZIDE 25 MG TABLET (FP) PO SCH ×2 (10:33→22:14)
[2018-01-04] MEDS: PANTOPRAZOLE 40 MG TABLET (FP) PO SCH (10:33)
[2018-01-04] MEDS: FERROUS SO4 325 MG TABLET (FP) PO SCH (10:33)
[2018-01-04] MEDS: ASPIRIN COATED 81 MG TABLET.EC PO SCH (10:33)
[2018-01-04] MEDS: NICOTINE 14 MG/24 HOURS TOPICAL PATCH TD SCH (10:34)
[2018-01-04] MEDS: BUDESONIDE/FORMETEROL FUMARATE 160/4.5 mcg INHALER IH SCH ×2 (10:34→22:15)
[2018-01-04 11:00] LABS: ALBUMIN 3.3 g/dl (3.4-5.0); ALK PHOS 289 U/L (45-117); ANION GAP 7 MMOL/L (8-16); BILIRUBIN,TOTAL 0.4 mg/dL (0.2-1); BLOOD UREA NITROGEN 34 mg/dL (7-18); CALCIUM 8.3 mg/dL (8.5-10.1); CHLORIDE 112 mmol/L (98-107); CO2 24 mmol/L (21-32); CREATININE 1.8 mg/dL (0.55-1.3); GLUCOSE,RANDOM 199 mg/dL (74-106); POTASSIUM 4.7 mmol/L (3.5-5.1); SGOT/AST 131 U/L (15-37); SGPT/ALT 181 U/L (13-61); SODIUM 142 mmol/L (136-145)
--- NOTE | 2018-01-04 14:15 | PN ---
BHS Progress Note (SOAP) Subjective: Shakes sweats slight tremors Objective: 01/04/18 14:17 A & O x 3 Ambulating steadily on unit In no distress Laboratory Last Values WBC 2.8 K/mm3 (4.0-10.0) L 01/02/18 07:50 RBC 3.03 M/mm3 (4.00-5.60) L 01/02/18 07:50 Hgb 10.5 GM/dL (11.7-16.9) L 01/02/18 07:50 Hct 31.4 % (35.4-49) L 01/02/18 07:50 MCV 103.8 fl (80-96) H 01/02/18 07:50 MCH 34.6 pg (25.7-33.7) H 01/02/18 07:50 MCHC 33.3 g/dl (32.0-35.9) 01/02/18 07:50 RDW 15.0 % (11.9-15.9) D 01/02/18 07:50 Plt Count 101 K/MM3 (134-434) L D 01/02/18 07:50 MPV 10.4 fl (7.5-11.1) D 01/02/18 07:50 Sodium 142 mmol/L (136-145) 01/04/18 07:00 Potassium 4.7 mmol/L (3.5-5.1) 01/04/18 07:00 Chloride 112 mmol/L (98-107) H 01/04/18 07:00 Carbon Dioxide 24 mmol/L (21-32) 01/04/18 07:00 Anion Gap 7 MMOL/L (8-16) L 01/04/18 07:00 BUN 34 mg/dL (7-18) H 01/04/18 07:00 Creatinine 1.8 mg/dL (0.55-1.3) H 01/04/18 07:00 Creat Clearance w eGFR 39.52 (>60) 01/04/18 07:00 POC Glucometer 235 UNITS (80-120) 01/04/18 05:03 Random Glucose 199 mg/dL (74-106) H 01/04/18 07:00 Calcium 8.3 mg/dL (8.5-10.1) L 01/04/18 07:00 Total Bilirubin 0.4 mg/dL (0.2-1) 01/04/18 07:00 AST 131 U/L (15-37) H 01/04/18 07:00 ALT 181 U/L (13-61) H 01/04/18 07:00 Alkaline Phosphatase 289 U/L (45-117) H 01/04/18 07:00 Total Protein 7.0 g/dl (6.4-8.2) 01/04/18 07:00 Albumin 3.3 g/dl (3.4-5.0) L 01/04/18 07:00 Urine Color Ltyellow 01/02/18 08:50 Urine Appearance Clear 01/02/18 08:50 Urine pH 5.0 (5.0-8.0) 01/02/18 08:50 Ur Specific [place] 1.013 (1.001-1.035) 01/02/18 08:50 Urine Protein Negative (NEGATIVE) 01/02/18 08:50 Urine Glucose (UA) Negative (NEGATIVE) 01/02/18 08:50 Urine Ketones Negative (NEGATIVE) 01/02/18 08:50 Urine Blood Negative (NEGATIVE) 01/02/18 08:50 Urine Nitrite Negative (NEGATIVE) 01/02/18 08:50 Urine Bilirubin Negative (<2.0 mg/dL) 01/02/18 08:50 Urine Urobilinogen Negative mg/dL (0.2-1.0) 01/02/18 08:50 Ur Leukocyte Esterase Negative (NEGATIVE) 01/02/18 08:50 RPR Titer Nonreactive (NONREACTIVE) 01/02/18 07:50 Labs noted, repeat AST/ALT reduced since last test Assessment: 01/04/18 14:31 withdrawal sx Plan: continue detox
--- NOTE | 2018-01-04 19:33 | PN ---
S Progress Note Note: Psychiatry Attending's note : Patient was approached at bedside for follow-up examination. During daytime. As requested by medical nurse practitioner (no question offered). Mr Whitmore reported being " fine ".Declined examination. Printing Plate Clerk observed the patient as moderately sedated during visit. Seroquel is held as a precaution.Will observe.
[2018-01-04] MEDS: THIAMINE HCL 100 MG TABLET (FP) PO SCH (22:14)
[2018-01-04] MEDS: chlordiazePOXIDE HCL 10 MG CAPSULE PO SCH (22:14)
[2018-01-04] MEDS: ATORVASTATIN CA 20 MG TABLET (FP) PO SCH (22:14)
[2018-01-04] MEDS: QUEtiapine FUMARATE 100 MG TABLET (FP) PO SCH (22:14)
[2018-01-04] MEDS: MELATONIN 5 MG TABLETS PO PRN (22:15)
[2018-01-05] MEDS ORDERED: METHADONE HCL 40 MG DISPERSABLE TABLET ONE (04:32)
[2018-01-05] MEDS ORDERED: METHADONE HCL 10 MG TABLET ONE (04:32)
[2018-01-05] MEDS: chlordiazePOXIDE HCL 10 MG CAPSULE PO SCH ×2 (06:30→11:15)
[2018-01-05] MEDS: METHADONE 40 MG, METHADONE 20 MG PO SCH (06:30)
[2018-01-05] MEDS: sitaGLIPtin PHOSPHATE 25 MG TABLET (FP) PO SCH (06:31)
[2018-01-05] MEDS ORDERED: INSULIN (NOVOLOG) ASPART 100 UNITS/ML 10ML VIAL ONE ×2 (07:42→11:20)
[2018-01-05] MEDS: INSULIN SLIDING SCALE (NOVOLOG) 1 VIAL SQ SCH ×2 (07:42→11:19)
[2018-01-05] MEDS: BUDESONIDE/FORMETEROL FUMARATE 160/4.5 mcg INHALER IH SCH (10:17)
[2018-01-05] MEDS: LOSARTAN POTASSIUM 50 MG TABLET (FP) PO SCH (10:18)
[2018-01-05] MEDS: RANITIDINE HCL 150 MG TABLET (FP) PO SCH (10:18)
[2018-01-05] MEDS: TAMSULOSIN HCL 0.4 MG CAP.ER.24H (FP) PO SCH (10:18)
[2018-01-05] MEDS: PRENATAL VITAMINS W/ FOLIC ACID TABLET (FP) PO SCH (10:18)
[2018-01-05] MEDS: NICOTINE 14 MG/24 HOURS TOPICAL PATCH TD SCH (10:18)
[2018-01-05] MEDS: ASPIRIN COATED 81 MG TABLET.EC PO SCH (10:18)
[2018-01-05] MEDS: HYDROCHLOROTHIAZIDE 25 MG TABLET (FP) PO SCH (10:18)
[2018-01-05] MEDS: PANTOPRAZOLE 40 MG TABLET (FP) PO SCH (10:18)
[2018-01-05] MEDS: FERROUS SO4 325 MG TABLET (FP) PO SCH (10:18)
[2018-01-05] MEDS: amLODIPine BESYLATE 10 MG TABLET (FP) PO SCH (10:18)
--- NOTE | 2018-01-05 13:15 | DS ---
[facility] Detox Discharge Summary Admission Date: 01/01/18 Discharge Date: 01/05/18 - History Present History: Alcohol Dependence - Physical Exam Results Vital Signs: Vital Signs Temperature 97.8 F 01/05/18 09:45 Pulse Rate 82 01/05/18 09:45 Respiratory Rate 18 01/05/18 09:45 Blood Pressure 127/86 01/05/18 09:45 O2 Sat by Pulse Oximetry (%) Pertinent Admission Physical Exam Findings: PATIENT DISCHARGED TO [facility]. TOLERATED DETOX WELL. PATIENT MEDICALLY STABLE. ALERT AND ORIENTED X 3. IN NAD. DENIES SI/HI. - Treatment Hospital Course: Detox Protocol Followed, Detoxed Safely, Responded well, Discharged Condition Good, Rehab Referral Accepted - Medication Discharge Medications: Ambulatory Orders Famotidine 20 mg PO BID #60 tab 09/23/16 Albuterol Sulfate Inhaler - [Ventolin HFA Inhaler -] 2 inh IH Q4H PRN #1 inh Aspirin [Aspirin EC] 81 mg PO DAILY #30 tablet. 08/28/17 Budesonide/Formeterol Fumarate [SYMBICORT 160/4.5mcg -] 1 inh PO BID #1 inh Ferrous Sulfate [Feosol] 325 mg PO DAILY #90 ud 08/28/17 Hydrochlorothiazide 25 mg PO BID #60 tab 08/28/17 Losartan Potassium [Cozaar -] 50 mg PO BID #60 tab 08/28/17 Pantoprazole Sodium [Protonix -] 40 mg PO DAILY #30 tablet.ec 08/28/17 Amlodipine Besylate [Norvasc -] 10 mg PO DAILY #30 tablet 09/10/17 Atorvastatin Ca [Lipitor] 20 mg PO HS #30 tablet 09/10/17 Quetiapine Fumarate [Seroquel -] 200 mg PO HS #30 tablet 09/10/17 Sitagliptin Phosphate [Januvia -] 25 mg PO DAILY@0700 #30 tab 09/10/17 Tamsulosin HCl [Flomax -] 0.4 mg PO DAILY@0830 #30 cap.er.24h 09/10/17 Tiotropium [place] [Spiriva] 1 puff IH DAILY 30 Days #30 cap 09/10/17 Insulin Glargine,Hum.rec.anlog [Lantus] 15 unit SQ HS 01/02/18 - AMA Did Patient Leave Against Medical Advice: No
[2018-01-05 14:02] VITALS: BP 100/72; PULSE 70; TEMP 97.4
== END 2018-01-05 15:15 | disposition other institution (70) | DRG 773 ==
LOC: YASAS 15:03 → Y3N 18:18
PROC: HZ2ZZZZ Detoxification Services for Substance Abuse Treatment (ICD-10-PCS; principal; 2018-01-01)
DX: F10.230 Alcohol dependence with withdrawal, uncomplicated (principal); F11.20 Opioid dependence, uncomplicated; F17.213 Nicotine dependence, cigarettes, with withdrawal; F31.9 Bipolar disorder, unspecified; F19.24 Other psychoactive substance dependence with psychoactive substance-induced mood disorder; J44.9 Chronic obstructive pulmonary disease, unspecified; G47.00 Insomnia, unspecified; N40.0 Benign prostatic hyperplasia without lower urinary tract symptoms; N17.9 Acute kidney failure, unspecified; E78.00 Pure hypercholesterolemia, unspecified; R94.5 Abnormal results of liver function studies; D64.9 Anemia, unspecified; K70.10 Alcoholic hepatitis without ascites
CPT/HCPCS: 36415; 80053; 81003; 82962; 85027; 86593; 87522; 93005; 93010

== ENCOUNTER 2018-01-05 15:22 | Inpatient (IN) | payer OTHER ==
[2018-01-05] MEDS ORDERED: guaiFENesin/D-METHORPHAN HB 10 ML UNIT-DOSE CUPS PO PRN (16:03)
[2018-01-05] MEDS ORDERED: MAGNESIUM HYDROX 2400MG/30ML ORAL SUSPENSION 30 ML CUP PO PRN (16:03)
[2018-01-05] MEDS ORDERED: LOPERAMIDE HCL 2 MG CAPSULE PO PRN (16:03)
[2018-01-05] MEDS ORDERED: P-EPHED 60MG/TRIPROLIDI 2.5MG TABLET PO PRN (16:03)
[2018-01-05] MEDS ORDERED: MAGNESIUM CITRATE 300 ML BOTTLE PO PRN (16:03)
[2018-01-05] MEDS ORDERED: MENTHOL/PHENOL 1 EACH UD MM PRN (16:03)
[2018-01-05] MEDS ORDERED: NICOTINE POLACRILEX 2 MG GUM BUC PRN (16:05)
[2018-01-05] MEDS ORDERED: ALBUTEROL SO4 8 GM HFA INHALER IH PRN (16:07)
--- NOTE | 2018-01-05 16:07 | HP ---
[facility]ARY Rehab Assess/Revision - Admission History Admitted to Rehab from: [facility] Date of Admission to Rehab: 01/05/18 - Vital signs Vital Signs: Vital Signs Period Temp Pulse Resp BP Sys/Lopez Pulse Ox Last 24 Hr 98.3 F 90 18 109/78 - Findings Detox History & Physical reviewed: Yes Concur with findings: Yes Inpatient Rehab Admission - Initial Determination Are CD services needed?: Yes Free of communicable disease: Yes Not in need of hospitalization: Yes - Rehab Admission Criteria Previous failed treatment: Yes Poor recovery environment: Yes Comorbidities: Yes Lacks judgement: Yes Patient is meeting Inpatient Rehab admission criteria:: Yes
[2018-01-05] MEDS ORDERED: TUBERCULIN PPD 5 TU/0.1ML VIAL ID ONE (20:14)
[2018-01-05] MEDS: THIAMINE HCL 100 MG TABLET (FP) PO SCH (21:12)
[2018-01-05] MEDS: ATORVASTATIN CA 20 MG TABLET (FP) PO SCH (21:12)
[2018-01-05] MEDS: HYDROCHLOROTHIAZIDE 25 MG TABLET (FP) PO SCH (21:12)
[2018-01-05] MEDS: LOSARTAN POTASSIUM 50 MG TABLET (FP) PO SCH (21:12)
[2018-01-05] MEDS: BUDESONIDE/FORMETEROL FUMARATE 160/4.5 mcg INHALER IH SCH (21:13)
[2018-01-05] MEDS: MELATONIN 5 MG TABLETS PO PRN (21:15)
--- NOTE | 2018-01-05 21:54 | PN ---
S Progress Note Note: Psychiatry Attending's on-call note : Called to enter order for seroquel. Mr Whitmore is already known to this verse writer. [facility] [place]. See my note of 01/02/18 for details. Intervention : Seroquel 100 mg po hs Resumed for continuity of care.
[2018-01-05] MEDS: INSULIN (LEVEMIR) 100 UNITS/ML UNITS SQ SCH (22:00)
[2018-01-05] MEDS: QUEtiapine FUMARATE 100 MG TABLET (FP) PO SCH (22:12)
[2018-01-05] MEDS ORDERED: PT OWN MED DRAWER 7, Y5N ONE (22:25)
[2018-01-06] MEDS ORDERED: METHADONE HCL 10 MG TABLET ONE (05:38)
[2018-01-06] MEDS ORDERED: METHADONE HCL 40 MG DISPERSABLE TABLET ONE (05:38)
[2018-01-06] MEDS: METHADONE 40 MG, METHADONE 20 MG PO SCH (05:57)
[2018-01-06] MEDS ORDERED: METHADONE HCL 10 MG TABLET PO SCH (06:00)
--- NOTE | 2018-01-06 06:26 | HP ---
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 Patient is on methadone 60 g/day. Smokes 10 cigarettes daily Psychiatric History: Reports being diagnosed with Bipolar Disorder in the late . Reports history of multiple psychiatric inpatient admissons to various insitutions including [facility], [facility], [facility] , [facility] and most recently in Jan 2016 to [facility] for depression and SI. He was discharged on Seroquel 200 mg po BID and referred to the hospital clinic but failed to go. Reports non-compliance to OPD care but reports that he used to receive OPD care at [facility]. Claims he has friend psychiatrist precribing him medication and he only takes Seroquel 200 mg po HS. Reports history of suicidal attempt by trying to jump off a roof several years ago. He saw Dr Maier on 01/02/18 while in detox and was prescribed Seroquel 100 mg po HS. At present reorts feeling anxious and sleeping poorly. Requests that Seroquel dosage be raised. Physical/Sexual Abuse/Trauma History: Denies history of verbal, physical or sexual abuse as well as Dv relationship Additional Comment: Reports history of more than 7 previous arrests incluning one felony conviction. Denies being on parole/probation Vital Signs: Vital Signs - 24 hr 01/05/18 01/06/18 01/06/18 15:36 00:30 03:30 Temperature 98.3 F Pulse Rate 90 Respiratory 18 18 18 Rate Blood Pressure 109/78 Allergies/Adverse Reactions: Allergies Allergy/AdvReac Type Severity Reaction Status Date / Time No Known Allergies Allergy Verified 01/01/18 17:46 Date of last physical exam: 01/01/18 Concur with the findings of this exam: Yes - Substance Abuse/Tx History Hx Alcohol Use: Yes Hx Substance Use: Yes (Currently attends [facility]) Substance Use Type: Alcohol (Started drinking alcohol at age 15, consumes 2.25 pints og vodka daily. Lst drank on 01/01/18) Hx Substance Use Treatment: Yes (multiple(11) previous inpt detox & 4 inpt rehab admisions @ [facility]) Mental Status Exam - Mental Status Exam Alert and Oriented to: Time, Place, Person Cognitive Function: Fair Patient Appearance: Well Groomed Mood: Anxious Affect: Appropriate Patient Behavior: Cooperative Speech Pattern: Clear Voice Loudness: Normal Thought Process: Intact, Goal Oriented Thought Disorder: Not Present Hallucinations: Denies Suicidal Ideation: Denies Homicidal Ideation: Denies Insight/Judgement: Fair Sleep: Poorly Appetite: Fair Muscle strength/Tone: Normal Gait/Station: Normal Psychiatric Findings - Problem List ([place] 1, 2,3) (1) Alcohol dependence Current Visit: No Status: Acute Qualifiers: Substance use status: in withdrawal Complication of substance-induced condition: uncomplicated Qualified Code(s): F10.230 - Alcohol dependence with withdrawal, uncomplicated (2) Opioid dependence on agonist therapy Current Visit: No Status: Chronic (3) Nicotine dependence Current Visit: Yes Status: Chronic (4) Bipolar disorder Current Visit: Yes Status: Chronic (5) Substance-induced anxiety disorder Current Visit: Yes Status: Acute (6) Substance-induced sleep disorder Current Visit: Yes Status: Acute (7) Anemia Current Visit: No Status: Chronic Qualifiers: Anemia type: unspecified type Qualified Code(s): D64.9 - Anemia, unspecified (8) COPD (chronic obstructive pulmonary disease) Current Visit: No Status: Chronic Qualifiers: COPD type: unspecified COPD Qualified Code(s): J44.9 - Chronic obstructive pulmonary disease, unspecified (9) DM2 (diabetes mellitus, type 2) Current Visit: No Status: Chronic Qualifiers: Diabetes mellitus manager terminal insulin use: without mcc use (10) GERD (gastroesophageal reflux disease) Current Visit: No Status: Chronic Qualifiers: Esophagitis presence: esophagitis presence not specified Qualified Code(s) : K21.9 - Gastro-esophageal reflux disease without esophagitis (11) Hypercholesteremia Current Visit: No Status: Chronic (12) HTN (hypertension) Current Visit: Yes Status: Chronic (13) BPH (benign prostatic hyperplasia) Current Visit: No Status: Chronic (14) Varicose vein of leg Current Visit: No Status: Chronic (15) Alcoholic hepatitis Current Visit: Yes Status: Chronic - Initial Treatment Plan Initial Treatment Plan: 1) Start Seroquel 200 mg po HS. 2) Monitor progress
[2018-01-06] MEDS: sitaGLIPtin PHOSPHATE 25 MG TABLET (FP) PO SCH (07:11)
[2018-01-06] MEDS: TAMSULOSIN HCL 0.4 MG CAP PO SCH (08:33)
[2018-01-06] MEDS: FERROUS SO4 325 MG TABLET (FP) PO SCH (10:32)
[2018-01-06] MEDS: HYDROCHLOROTHIAZIDE 25 MG TABLET (FP) PO SCH ×2 (10:33→21:04)
[2018-01-06] MEDS: LOSARTAN POTASSIUM 50 MG TABLET (FP) PO SCH ×2 (10:33→21:03)
[2018-01-06] MEDS: ASPIRIN COATED 81 MG TABLET.EC PO SCH (10:33)
[2018-01-06] MEDS: amLODIPine BESYLATE 10 MG TABLET (FP) PO SCH (10:33)
[2018-01-06] MEDS: NICOTINE 14 MG/24 HOURS TOPICAL PATCH TD SCH (10:34)
[2018-01-06] MEDS: PRENATAL VITAMINS W/ FOLIC ACID TABLET (FP) PO SCH (10:34)
[2018-01-06] MEDS: PANTOPRAZOLE 40 MG TABLET (FP) PO SCH (10:34)
[2018-01-06] MEDS: BUDESONIDE/FORMETEROL FUMARATE 160/4.5 mcg INHALER IH SCH ×2 (10:58→21:05)
--- NOTE | 2018-01-06 12:33 | PN ---
S Progress Note Note: PT ADMITTED TO REHAB FROM [address] [place] [address] ON 01/05/18. PT C/O DIARRHEA AND PAIN ON URINATION X 2 WEEKS. UA IN DETOX WNL. Vital Signs 01/06/18 01/06/18 06:53 09:30 Temperature 97.8 F Pulse Rate 76 97 H Respiratory 18 18 Rate Blood Pressure 108/74 105/73 Laboratory Tests 01/05/18 01/06/18 21:09 05:57 POC Glucometer 139 86 PLAN:GLUCERNA 1 CAN PO BID REPEAT CBC, CMP AND UA IMODIUM PRN
[2018-01-06] MEDS ORDERED: FLU VACCINE QUAD 60 MCG/0.5 ML (MDV 18-19) IM ONE (15:55)
[2018-01-06 18:18] LABS: URINE APPEARANCE CLEAR; URINE BILIRUBIN NEGATIVE (<2.0 mg/dL); URINE COLOR YELLOW; URINE GLUCOSE (UA) NEGATIVE (NEGATIVE); URINE KETONE NEGATIVE (NEGATIVE); URINE LEUK ESTERASE TRACE (NEGATIVE); URINE NITRITE NEGATIVE (NEGATIVE); URINE PROTEIN NEGATIVE (NEGATIVE); URINE UROBILINOGEN NEGATIVE mg/dL (0.2-1.0)
[2018-01-06 18:31] LABS: EPI CELLS RARE /HPF (FEW); URINE BACTERIA RARE /hpf (NONE SEEN); URINE MUCUS RARE
[2018-01-06] MEDS: INSULIN (LEVEMIR) 100 UNITS/ML UNITS SQ SCH (21:02)
[2018-01-06] MEDS: QUEtiapine FUMARATE 100 MG TABLET (FP) PO SCH (21:03)
[2018-01-06] MEDS: ATORVASTATIN CA 20 MG TABLET (FP) PO SCH (21:03)
[2018-01-06] MEDS: THIAMINE HCL 100 MG TABLET (FP) PO SCH (21:03)
[2018-01-07] MEDS ORDERED: METHADONE HCL 40 MG DISPERSABLE TABLET ONE (02:56)
[2018-01-07] MEDS ORDERED: METHADONE HCL 10 MG TABLET ONE (02:56)
[2018-01-07] MEDS: METHADONE 40 MG, METHADONE 20 MG PO SCH (06:06)
[2018-01-07] MEDS: sitaGLIPtin PHOSPHATE 25 MG TABLET (FP) PO SCH (06:07)
[2018-01-07] MEDS: TAMSULOSIN HCL 0.4 MG CAP PO SCH (08:02)
[2018-01-07] MEDS: ASPIRIN COATED 81 MG TABLET.EC PO SCH (10:37)
[2018-01-07] MEDS: amLODIPine BESYLATE 10 MG TABLET (FP) PO SCH (10:37)
[2018-01-07] MEDS: BUDESONIDE/FORMETEROL FUMARATE 160/4.5 mcg INHALER IH SCH ×2 (10:37→21:16)
[2018-01-07] MEDS: PANTOPRAZOLE 40 MG TABLET (FP) PO SCH (10:37)
[2018-01-07] MEDS: PRENATAL VITAMINS W/ FOLIC ACID TABLET (FP) PO SCH (10:37)
[2018-01-07] MEDS: HYDROCHLOROTHIAZIDE 25 MG TABLET (FP) PO SCH ×2 (10:37→21:14)
[2018-01-07] MEDS: FERROUS SO4 325 MG TABLET (FP) PO SCH (10:37)
[2018-01-07] MEDS: LOSARTAN POTASSIUM 50 MG TABLET (FP) PO SCH ×2 (10:37→21:14)
[2018-01-07] MEDS: NICOTINE 14 MG/24 HOURS TOPICAL PATCH TD SCH (10:38)
[2018-01-07 10:54] LABS: ALBUMIN 3.6 g/dl (3.4-5.0); ALK PHOS 229 U/L (45-117); ANION GAP 11 MMOL/L (8-16); BILIRUBIN,TOTAL 0.4 mg/dL (0.2-1); BLOOD UREA NITROGEN 27 mg/dL (7-18); CALCIUM 9.4 mg/dL (8.5-10.1); CHLORIDE 110 mmol/L (98-107); CO2 26 mmol/L (21-32); CREATININE 1.4 mg/dL (0.55-1.3); GLUCOSE,RANDOM 106 mg/dL (74-106); POTASSIUM 5.1 mmol/L (3.5-5.1); SGOT/AST 60 U/L (15-37); SGPT/ALT 110 U/L (13-61); SODIUM 146 mmol/L (136-145); TOT PROT 7.6 g/dl (6.4-8.2)
--- NOTE | 2018-01-07 11:52 | PN ---
[facility] Progress Note Note: PT REPORTS HE HAD TOOTH EXTRACTION/SUTURE BEFORE COMING TO TREATMENT. REPORTS HE WAS GIVEN RX FOR AMOXICILLIN AND TO COMPLETE THE DOSE POST ORAL SX. PT IS NOW BRINGING THIS INFORMATION TO ATTENTION TO STAFF TODAY HE IS NOW COMPLAINING OF DISCOMFORT TO THE TOOTH AREA. PT HAS OWN MED AND WILL BE RESTARTING HIS OWN MEDICATION TODAY.
[2018-01-07] MEDS: AMOXICILLIN PO SCH (15:00)
[2018-01-07] MEDS: QUEtiapine FUMARATE 200 MG TABLET PO SCH (21:13)
[2018-01-07] MEDS: ATORVASTATIN CA 20 MG TABLET (FP) PO SCH (21:13)
[2018-01-07] MEDS: THIAMINE HCL 100 MG TABLET (FP) PO SCH (21:13)
[2018-01-07] MEDS: INSULIN (LEVEMIR) 100 UNITS/ML UNITS SQ SCH (21:13)
[2018-01-07] MEDS: MELATONIN 5 MG TABLETS PO PRN (21:14)
[2018-01-07] MEDS ORDERED: PT OWN MED DRAWER 7, Y5N ONE (21:16)
[2018-01-08] MEDS: IBUPROFEN 400 MG TABLET (FP) PO PRN (04:39)
[2018-01-08] MEDS ORDERED: METHADONE HCL 10 MG TABLET ONE (05:32)
[2018-01-08] MEDS ORDERED: METHADONE HCL 40 MG DISPERSABLE TABLET ONE (05:32)
[2018-01-08] MEDS: sitaGLIPtin PHOSPHATE 25 MG TABLET (FP) PO SCH (06:17)
[2018-01-08] MEDS: METHADONE 40 MG, METHADONE 20 MG PO SCH (06:17)
[2018-01-08] MEDS: TAMSULOSIN HCL 0.4 MG CAP PO SCH (08:15)
[2018-01-08] MEDS: ASPIRIN COATED 81 MG TABLET.EC PO SCH (10:15)
[2018-01-08] MEDS: amLODIPine BESYLATE 10 MG TABLET (FP) PO SCH (10:15)
[2018-01-08] MEDS: NICOTINE 14 MG/24 HOURS TOPICAL PATCH TD SCH (10:15)
[2018-01-08] MEDS: LOSARTAN POTASSIUM 50 MG TABLET (FP) PO SCH ×2 (10:15→21:20)
[2018-01-08] MEDS: PANTOPRAZOLE 40 MG TABLET (FP) PO SCH (10:15)
[2018-01-08] MEDS: HYDROCHLOROTHIAZIDE 25 MG TABLET (FP) PO SCH ×2 (10:15→21:20)
[2018-01-08] MEDS: PRENATAL VITAMINS W/ FOLIC ACID TABLET (FP) PO SCH (10:16)
[2018-01-08] MEDS: FERROUS SO4 325 MG TABLET (FP) PO SCH (10:16)
[2018-01-08] MEDS: AMOXICILLIN PO SCH (10:17)
[2018-01-08] MEDS: BUDESONIDE/FORMETEROL FUMARATE 160/4.5 mcg INHALER IH SCH ×2 (10:17→22:08)
[2018-01-08] MEDS: QUEtiapine FUMARATE 200 MG TABLET PO SCH (21:20)
[2018-01-08] MEDS: THIAMINE HCL 100 MG TABLET (FP) PO SCH (21:20)
[2018-01-08] MEDS: ATORVASTATIN CA 20 MG TABLET (FP) PO SCH (21:20)
[2018-01-08] MEDS: MELATONIN 5 MG TABLETS PO PRN (21:21)
[2018-01-08] MEDS: INSULIN (LEVEMIR) 100 UNITS/ML UNITS SQ SCH (21:26)
[2018-01-08] MEDS ORDERED: INSULIN (LEVEMIR) 100 UNITS/ML UNITS SQ ONE (21:28)
[2018-01-09] MEDS ORDERED: METHADONE HCL 40 MG DISPERSABLE TABLET ONE (05:34)
[2018-01-09] MEDS ORDERED: METHADONE HCL 10 MG TABLET ONE (05:34)
[2018-01-09] MEDS: METHADONE 40 MG, METHADONE 20 MG PO SCH (06:31)
[2018-01-09] MEDS: sitaGLIPtin PHOSPHATE 25 MG TABLET (FP) PO SCH (07:15)
[2018-01-09] MEDS: TAMSULOSIN HCL 0.4 MG CAP PO SCH (09:30)
[2018-01-09] MEDS: NICOTINE 14 MG/24 HOURS TOPICAL PATCH TD SCH (10:11)
[2018-01-09] MEDS: BUDESONIDE/FORMETEROL FUMARATE 160/4.5 mcg INHALER IH SCH ×2 (10:11→21:13)
[2018-01-09] MEDS: amLODIPine BESYLATE 10 MG TABLET (FP) PO SCH (10:11)
[2018-01-09] MEDS: AMOXICILLIN PO SCH (10:11)
[2018-01-09] MEDS: HYDROCHLOROTHIAZIDE 25 MG TABLET (FP) PO SCH ×2 (10:11→21:12)
[2018-01-09] MEDS: FERROUS SO4 325 MG TABLET (FP) PO SCH (10:11)
[2018-01-09] MEDS: PANTOPRAZOLE 40 MG TABLET (FP) PO SCH (10:11)
[2018-01-09] MEDS: LOSARTAN POTASSIUM 50 MG TABLET (FP) PO SCH ×2 (10:11→21:12)
[2018-01-09] MEDS: ASPIRIN COATED 81 MG TABLET.EC PO SCH (10:13)
[2018-01-09] MEDS: PRENATAL VITAMINS W/ FOLIC ACID TABLET (FP) PO SCH (10:16)
[2018-01-09] MEDS: QUEtiapine FUMARATE 200 MG TABLET PO SCH (21:12)
[2018-01-09] MEDS: THIAMINE HCL 100 MG TABLET (FP) PO SCH (21:12)
[2018-01-09] MEDS: ATORVASTATIN CA 20 MG TABLET (FP) PO SCH (21:12)
[2018-01-09] MEDS: INSULIN (LEVEMIR) 100 UNITS/ML UNITS SQ SCH (21:13)
[2018-01-10] MEDS ORDERED: METHADONE HCL 10 MG TABLET ONE (05:15)
[2018-01-10] MEDS ORDERED: METHADONE HCL 40 MG DISPERSABLE TABLET ONE (05:15)
[2018-01-10] MEDS: METHADONE 40 MG, METHADONE 20 MG PO SCH (06:22)
[2018-01-10] MEDS: sitaGLIPtin PHOSPHATE 25 MG TABLET (FP) PO SCH (06:22)
[2018-01-10] MEDS ORDERED: PT OWN MED DRAWER 7, Y5N ONE (09:09)
[2018-01-10] MEDS: TAMSULOSIN HCL 0.4 MG CAP PO SCH (09:30)
[2018-01-10] MEDS: BUDESONIDE/FORMETEROL FUMARATE 160/4.5 mcg INHALER IH SCH ×2 (10:12→21:26)
[2018-01-10] MEDS: ASPIRIN COATED 81 MG TABLET.EC PO SCH (10:13)
[2018-01-10] MEDS: PANTOPRAZOLE 40 MG TABLET (FP) PO SCH (10:13)
[2018-01-10] MEDS: FERROUS SO4 325 MG TABLET (FP) PO SCH (10:13)
[2018-01-10] MEDS: LOSARTAN POTASSIUM 50 MG TABLET (FP) PO SCH ×2 (10:13→21:24)
[2018-01-10] MEDS: HYDROCHLOROTHIAZIDE 25 MG TABLET (FP) PO SCH ×2 (10:13→21:24)
[2018-01-10] MEDS: NICOTINE 14 MG/24 HOURS TOPICAL PATCH TD SCH (10:13)
[2018-01-10] MEDS: amLODIPine BESYLATE 10 MG TABLET (FP) PO SCH (10:13)
[2018-01-10] MEDS: AMOXICILLIN PO SCH (10:14)
[2018-01-10] MEDS: PRENATAL VITAMINS W/ FOLIC ACID TABLET (FP) PO SCH (10:14)
[2018-01-10] MEDS: IBUPROFEN 400 MG TABLET (FP) PO PRN (10:15)
[2018-01-10] MEDS: QUEtiapine FUMARATE 200 MG TABLET PO SCH (21:24)
[2018-01-10] MEDS: ATORVASTATIN CA 20 MG TABLET (FP) PO SCH (21:24)
[2018-01-10] MEDS: THIAMINE HCL 100 MG TABLET (FP) PO SCH (21:24)
[2018-01-10] MEDS: MELATONIN 5 MG TABLETS PO PRN (21:25)
[2018-01-10] MEDS: INSULIN (LEVEMIR) 100 UNITS/ML UNITS SQ SCH (21:26)
[2018-01-11] MEDS ORDERED: METHADONE HCL 10 MG TABLET ONE (03:25)
[2018-01-11] MEDS ORDERED: METHADONE HCL 40 MG DISPERSABLE TABLET ONE (03:25)
[2018-01-11] MEDS: METHADONE 40 MG, METHADONE 20 MG PO SCH (06:15)
[2018-01-11] MEDS: sitaGLIPtin PHOSPHATE 25 MG TABLET (FP) PO SCH (06:16)
[2018-01-11] MEDS: TAMSULOSIN HCL 0.4 MG CAP PO SCH (07:34)
[2018-01-11] MEDS: FERROUS SO4 325 MG TABLET (FP) PO SCH (10:09)
[2018-01-11] MEDS: ASPIRIN COATED 81 MG TABLET.EC PO SCH (10:09)
[2018-01-11] MEDS: HYDROCHLOROTHIAZIDE 25 MG TABLET (FP) PO SCH ×2 (10:09→21:20)
[2018-01-11] MEDS: LOSARTAN POTASSIUM 50 MG TABLET (FP) PO SCH ×2 (10:09→21:20)
[2018-01-11] MEDS: PANTOPRAZOLE 40 MG TABLET (FP) PO SCH (10:09)
[2018-01-11] MEDS: amLODIPine BESYLATE 10 MG TABLET (FP) PO SCH (10:09)
[2018-01-11] MEDS: NICOTINE 14 MG/24 HOURS TOPICAL PATCH TD SCH (10:09)
[2018-01-11] MEDS: BUDESONIDE/FORMETEROL FUMARATE 160/4.5 mcg INHALER IH SCH ×2 (10:10→21:24)
[2018-01-11] MEDS: AMOXICILLIN PO SCH (10:10)
[2018-01-11] MEDS: PRENATAL VITAMINS W/ FOLIC ACID TABLET (FP) PO SCH (10:10)
--- NOTE | 2018-01-11 12:11 | PN ---
BHS Progress Note Note: DRY,CALLUSED FEET. PT IS DIABETIC. 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
[2018-01-11] MEDS: AMMONIUM LACTATE 12% LOTION 225 GM BOTTLE TP SCH (16:01)
[2018-01-11] MEDS: ATORVASTATIN CA 20 MG TABLET (FP) PO SCH (21:20)
[2018-01-11] MEDS: QUEtiapine FUMARATE 200 MG TABLET PO SCH (21:20)
[2018-01-11] MEDS: THIAMINE HCL 100 MG TABLET (FP) PO SCH (21:20)
[2018-01-11] MEDS: INSULIN (LEVEMIR) 100 UNITS/ML UNITS SQ SCH (21:21)
[2018-01-11] MEDS: MELATONIN 5 MG TABLETS PO PRN (21:23)
[2018-01-11] MEDS ORDERED: PT OWN MED DRAWER 7, Y5N ONE (21:27)
[2018-01-12] MEDS ORDERED: METHADONE HCL 40 MG DISPERSABLE TABLET ONE (06:06)
[2018-01-12] MEDS ORDERED: METHADONE HCL 10 MG TABLET ONE (06:06)
[2018-01-12] MEDS: sitaGLIPtin PHOSPHATE 25 MG TABLET (FP) PO SCH (06:34)
[2018-01-12] MEDS: METHADONE 40 MG, METHADONE 20 MG PO SCH (06:34)
[2018-01-12] MEDS: TAMSULOSIN HCL 0.4 MG CAP PO SCH (07:34)
[2018-01-12] MEDS: PRENATAL VITAMINS W/ FOLIC ACID TABLET (FP) PO SCH (10:17)
[2018-01-12] MEDS: FERROUS SO4 325 MG TABLET (FP) PO SCH (10:18)
[2018-01-12] MEDS: PANTOPRAZOLE 40 MG TABLET (FP) PO SCH (10:18)
[2018-01-12] MEDS: amLODIPine BESYLATE 10 MG TABLET (FP) PO SCH (10:18)
[2018-01-12] MEDS: LOSARTAN POTASSIUM 50 MG TABLET (FP) PO SCH ×2 (10:18→21:13)
[2018-01-12] MEDS: ASPIRIN COATED 81 MG TABLET.EC PO SCH (10:18)
[2018-01-12] MEDS: HYDROCHLOROTHIAZIDE 25 MG TABLET (FP) PO SCH ×2 (10:18→21:13)
[2018-01-12] MEDS: AMOXICILLIN PO SCH (10:20)
[2018-01-12] MEDS: AMMONIUM LACTATE 12% LOTION 225 GM BOTTLE TP SCH (10:21)
[2018-01-12] MEDS ORDERED: PT OWN MED DRAWER 7, Y5N ONE (10:21)
[2018-01-12] MEDS: NICOTINE 14 MG/24 HOURS TOPICAL PATCH TD SCH (10:21)
[2018-01-12] MEDS: BUDESONIDE/FORMETEROL FUMARATE 160/4.5 mcg INHALER IH SCH ×2 (10:30→21:15)
[2018-01-12] MEDS: IBUPROFEN 400 MG TABLET (FP) PO PRN (12:40)
[2018-01-12] MEDS: INSULIN (LEVEMIR) 100 UNITS/ML UNITS SQ SCH (21:13)
[2018-01-12] MEDS: QUEtiapine FUMARATE 200 MG TABLET PO SCH (21:13)
[2018-01-12] MEDS: THIAMINE HCL 100 MG TABLET (FP) PO SCH (21:13)
[2018-01-12] MEDS: ATORVASTATIN CA 20 MG TABLET (FP) PO SCH (21:13)
[2018-01-12] MEDS: MELATONIN 5 MG TABLETS PO PRN (21:14)
[2018-01-13] MEDS ORDERED: METHADONE HCL 10 MG TABLET ONE (02:27)
[2018-01-13] MEDS ORDERED: METHADONE HCL 40 MG DISPERSABLE TABLET ONE (02:27)
[2018-01-13] MEDS: sitaGLIPtin PHOSPHATE 25 MG TABLET (FP) PO SCH (06:53)
[2018-01-13] MEDS: METHADONE 40 MG, METHADONE 20 MG PO SCH (06:53)
[2018-01-13] MEDS: PANTOPRAZOLE 40 MG TABLET (FP) PO SCH (09:18)
[2018-01-13] MEDS: amLODIPine BESYLATE 10 MG TABLET (FP) PO SCH (09:18)
[2018-01-13] MEDS: FERROUS SO4 325 MG TABLET (FP) PO SCH (09:18)
[2018-01-13] MEDS: NICOTINE 14 MG/24 HOURS TOPICAL PATCH TD SCH (09:18)
[2018-01-13] MEDS: PRENATAL VITAMINS W/ FOLIC ACID TABLET (FP) PO SCH (09:18)
[2018-01-13] MEDS: TAMSULOSIN HCL 0.4 MG CAP PO SCH (09:19)
[2018-01-13] MEDS: ASPIRIN COATED 81 MG TABLET.EC PO SCH (09:19)
[2018-01-13] MEDS: BUDESONIDE/FORMETEROL FUMARATE 160/4.5 mcg INHALER IH SCH ×2 (09:20→21:06)
[2018-01-13] MEDS: AMOXICILLIN PO SCH (09:20)
[2018-01-13] MEDS ORDERED: PT OWN MED DRAWER 7, Y5N ONE (09:21)
[2018-01-13] MEDS: LOSARTAN POTASSIUM 50 MG TABLET (FP) PO SCH ×2 (09:22→21:05)
[2018-01-13] MEDS: HYDROCHLOROTHIAZIDE 25 MG TABLET (FP) PO SCH ×2 (09:22→21:05)
[2018-01-13] MEDS: AMMONIUM LACTATE 12% LOTION 225 GM BOTTLE TP SCH (10:23)
[2018-01-13] MEDS: INSULIN (LEVEMIR) 100 UNITS/ML UNITS SQ SCH (21:04)
[2018-01-13] MEDS: QUEtiapine FUMARATE 200 MG TABLET PO SCH (21:05)
[2018-01-13] MEDS: ATORVASTATIN CA 20 MG TABLET (FP) PO SCH (21:05)
[2018-01-13] MEDS: THIAMINE HCL 100 MG TABLET (FP) PO SCH (21:05)
[2018-01-13] MEDS: MELATONIN 5 MG TABLETS PO PRN (21:06)
[2018-01-14] MEDS ORDERED: METHADONE HCL 10 MG TABLET ONE (02:32)
[2018-01-14] MEDS ORDERED: METHADONE HCL 40 MG DISPERSABLE TABLET ONE (02:32)
[2018-01-14] MEDS: sitaGLIPtin PHOSPHATE 25 MG TABLET (FP) PO SCH (06:39)
[2018-01-14] MEDS: METHADONE 40 MG, METHADONE 20 MG PO SCH (06:40)
[2018-01-14] MEDS: TAMSULOSIN HCL 0.4 MG CAP PO SCH (08:19)
[2018-01-14] MEDS ORDERED: PT OWN MED DRAWER 7, Y5N ONE (08:59)
[2018-01-14] MEDS: FERROUS SO4 325 MG TABLET (FP) PO SCH (10:19)
[2018-01-14] MEDS: amLODIPine BESYLATE 10 MG TABLET (FP) PO SCH (10:19)
[2018-01-14] MEDS: PRENATAL VITAMINS W/ FOLIC ACID TABLET (FP) PO SCH (10:19)
[2018-01-14] MEDS: AMMONIUM LACTATE 12% LOTION 225 GM BOTTLE TP SCH (10:20)
[2018-01-14] MEDS: PANTOPRAZOLE 40 MG TABLET (FP) PO SCH (10:20)
[2018-01-14] MEDS: LOSARTAN POTASSIUM 50 MG TABLET (FP) PO SCH ×2 (10:20→21:16)
[2018-01-14] MEDS: HYDROCHLOROTHIAZIDE 25 MG TABLET (FP) PO SCH ×2 (10:20→21:16)
[2018-01-14] MEDS: NICOTINE 14 MG/24 HOURS TOPICAL PATCH TD SCH (10:20)
[2018-01-14] MEDS: ASPIRIN COATED 81 MG TABLET.EC PO SCH (10:20)
[2018-01-14] MEDS: BUDESONIDE/FORMETEROL FUMARATE 160/4.5 mcg INHALER IH SCH ×2 (10:20→21:19)
[2018-01-14] MEDS: MAG HYDROX/AL HYDROX/SIMETH 30 ML UNIT-DOSE CUP PO PRN (10:22)
[2018-01-14] MEDS: AMOXICILLIN PO SCH (10:36)
[2018-01-14] MEDS: MELATONIN 5 MG TABLETS PO PRN (21:16)
[2018-01-14] MEDS: THIAMINE HCL 100 MG TABLET (FP) PO SCH (21:16)
[2018-01-14] MEDS: ATORVASTATIN CA 20 MG TABLET (FP) PO SCH (21:16)
[2018-01-14] MEDS: INSULIN (LEVEMIR) 100 UNITS/ML UNITS SQ SCH (21:18)
[2018-01-14] MEDS: QUEtiapine FUMARATE 200 MG TABLET PO SCH (21:19)
[2018-01-15] MEDS ORDERED: METHADONE HCL 40 MG DISPERSABLE TABLET ONE (04:46)
[2018-01-15] MEDS ORDERED: METHADONE HCL 10 MG TABLET ONE (04:46)
[2018-01-15] MEDS ORDERED: PT OWN MED DRAWER 7, Y5N ONE (04:48)
[2018-01-15] MEDS: METHADONE 40 MG, METHADONE 20 MG PO SCH (06:05)
[2018-01-15] MEDS: sitaGLIPtin PHOSPHATE 25 MG TABLET (FP) PO SCH (06:05)
[2018-01-15] MEDS: TAMSULOSIN HCL 0.4 MG CAP PO SCH (07:35)
[2018-01-15] MEDS: HYDROCHLOROTHIAZIDE 25 MG TABLET (FP) PO SCH ×2 (10:38→21:17)
[2018-01-15] MEDS: AMOXICILLIN PO SCH (10:38)
[2018-01-15] MEDS: PANTOPRAZOLE 40 MG TABLET (FP) PO SCH (10:38)
[2018-01-15] MEDS: FERROUS SO4 325 MG TABLET (FP) PO SCH (10:38)
[2018-01-15] MEDS: ASPIRIN COATED 81 MG TABLET.EC PO SCH (10:38)
[2018-01-15] MEDS: LOSARTAN POTASSIUM 50 MG TABLET (FP) PO SCH ×2 (10:38→21:16)
[2018-01-15] MEDS: amLODIPine BESYLATE 10 MG TABLET (FP) PO SCH (10:38)
[2018-01-15] MEDS: NICOTINE 14 MG/24 HOURS TOPICAL PATCH TD SCH (10:38)
[2018-01-15] MEDS: PRENATAL VITAMINS W/ FOLIC ACID TABLET (FP) PO SCH (10:38)
[2018-01-15] MEDS: MAG HYDROX/AL HYDROX/SIMETH 30 ML UNIT-DOSE CUP PO PRN (10:41)
[2018-01-15] MEDS: IBUPROFEN 400 MG TABLET (FP) PO PRN (10:41)
[2018-01-15] MEDS: AMMONIUM LACTATE 12% LOTION 225 GM BOTTLE TP SCH (10:43)
[2018-01-15] MEDS: BUDESONIDE/FORMETEROL FUMARATE 160/4.5 mcg INHALER IH SCH ×2 (10:43→21:17)
[2018-01-15] MEDS: QUEtiapine FUMARATE 200 MG TABLET PO SCH (21:16)
[2018-01-15] MEDS: THIAMINE HCL 100 MG TABLET (FP) PO SCH (21:16)
[2018-01-15] MEDS: INSULIN (LEVEMIR) 100 UNITS/ML UNITS SQ SCH (21:16)
[2018-01-15] MEDS: ATORVASTATIN CA 20 MG TABLET (FP) PO SCH (21:16)
[2018-01-15] MEDS: MELATONIN 5 MG TABLETS PO PRN (21:17)
[2018-01-16] MEDS ORDERED: METHADONE HCL 10 MG TABLET ONE (04:02)
[2018-01-16] MEDS ORDERED: METHADONE HCL 40 MG DISPERSABLE TABLET ONE (04:02)
[2018-01-16] MEDS: METHADONE 40 MG, METHADONE 20 MG PO SCH (06:34)
[2018-01-16] MEDS: sitaGLIPtin PHOSPHATE 25 MG TABLET (FP) PO SCH (06:35)
[2018-01-16] MEDS: TAMSULOSIN HCL 0.4 MG CAP PO SCH (07:41)
[2018-01-16] MEDS: NICOTINE 14 MG/24 HOURS TOPICAL PATCH TD SCH (09:02)
[2018-01-16] MEDS: HYDROCHLOROTHIAZIDE 25 MG TABLET (FP) PO SCH ×2 (09:02→21:40)
[2018-01-16] MEDS: PANTOPRAZOLE 40 MG TABLET (FP) PO SCH (09:02)
[2018-01-16] MEDS: BUDESONIDE/FORMETEROL FUMARATE 160/4.5 mcg INHALER IH SCH ×2 (09:02→21:40)
[2018-01-16] MEDS: FERROUS SO4 325 MG TABLET (FP) PO SCH (09:02)
[2018-01-16] MEDS: PRENATAL VITAMINS W/ FOLIC ACID TABLET (FP) PO SCH (09:02)
[2018-01-16] MEDS: LOSARTAN POTASSIUM 50 MG TABLET (FP) PO SCH ×2 (09:03→21:39)
[2018-01-16] MEDS: amLODIPine BESYLATE 10 MG TABLET (FP) PO SCH (09:03)
[2018-01-16] MEDS: AMMONIUM LACTATE 12% LOTION 225 GM BOTTLE TP SCH (09:03)
[2018-01-16] MEDS: ASPIRIN COATED 81 MG TABLET.EC PO SCH (09:03)
[2018-01-16] MEDS: AMOXICILLIN PO SCH (09:03)
[2018-01-16] MEDS: IBUPROFEN 400 MG TABLET (FP) PO PRN ×2 (09:03→21:56)
[2018-01-16] MEDS: QUEtiapine FUMARATE 200 MG TABLET PO SCH (21:39)
[2018-01-16] MEDS: ATORVASTATIN CA 20 MG TABLET (FP) PO SCH (21:39)
[2018-01-16] MEDS: THIAMINE HCL 100 MG TABLET (FP) PO SCH (21:40)
[2018-01-16] MEDS: INSULIN (LEVEMIR) 100 UNITS/ML UNITS SQ SCH (21:40)
[2018-01-16] MEDS: MELATONIN 5 MG TABLETS PO PRN (21:41)
[2018-01-17] MEDS ORDERED: METHADONE HCL 10 MG TABLET ONE (03:43)
[2018-01-17] MEDS ORDERED: METHADONE HCL 40 MG DISPERSABLE TABLET ONE (03:43)
[2018-01-17] MEDS: METHADONE 40 MG, METHADONE 20 MG PO SCH (06:06)
[2018-01-17] MEDS: sitaGLIPtin PHOSPHATE 25 MG TABLET (FP) PO SCH (06:07)
[2018-01-17] MEDS: TAMSULOSIN HCL 0.4 MG CAP PO SCH (08:07)
[2018-01-17] MEDS: BUDESONIDE/FORMETEROL FUMARATE 160/4.5 mcg INHALER IH SCH ×2 (10:17→21:06)
[2018-01-17] MEDS: NICOTINE 14 MG/24 HOURS TOPICAL PATCH TD SCH (10:17)
[2018-01-17] MEDS: PRENATAL VITAMINS W/ FOLIC ACID TABLET (FP) PO SCH (10:18)
[2018-01-17] MEDS: ASPIRIN COATED 81 MG TABLET.EC PO SCH (10:18)
[2018-01-17] MEDS: LOSARTAN POTASSIUM 50 MG TABLET (FP) PO SCH ×2 (10:18→21:06)
[2018-01-17] MEDS: FERROUS SO4 325 MG TABLET (FP) PO SCH (10:18)
[2018-01-17] MEDS: AMOXICILLIN PO SCH (10:18)
[2018-01-17] MEDS: amLODIPine BESYLATE 10 MG TABLET (FP) PO SCH (10:18)
[2018-01-17] MEDS: HYDROCHLOROTHIAZIDE 25 MG TABLET (FP) PO SCH ×2 (10:18→21:06)
[2018-01-17] MEDS: PANTOPRAZOLE 40 MG TABLET (FP) PO SCH (10:18)
[2018-01-17] MEDS: AMMONIUM LACTATE 12% LOTION 225 GM BOTTLE TP SCH (10:20)
[2018-01-17] MEDS: IBUPROFEN 400 MG TABLET (FP) PO PRN (10:21)
[2018-01-17] MEDS ORDERED: PT OWN MED DRAWER 7, Y5N ONE (10:21)
[2018-01-17] MEDS: INSULIN (LEVEMIR) 100 UNITS/ML UNITS SQ SCH (21:04)
[2018-01-17] MEDS: THIAMINE HCL 100 MG TABLET (FP) PO SCH (21:06)
[2018-01-17] MEDS: ATORVASTATIN CA 20 MG TABLET (FP) PO SCH (21:06)
[2018-01-17] MEDS: QUEtiapine FUMARATE 200 MG TABLET PO SCH (21:08)
[2018-01-17] MEDS: MELATONIN 5 MG TABLETS PO PRN (21:08)
[2018-01-18] MEDS ORDERED: METHADONE HCL 10 MG TABLET ONE (06:27)
[2018-01-18] MEDS: METHADONE 40 MG, METHADONE 20 MG PO SCH (06:27)
[2018-01-18] MEDS ORDERED: METHADONE HCL 40 MG DISPERSABLE TABLET ONE (06:27)
[2018-01-18] MEDS: sitaGLIPtin PHOSPHATE 25 MG TABLET (FP) PO SCH (06:28)
[2018-01-18] MEDS: TAMSULOSIN HCL 0.4 MG CAP PO SCH (08:38)
--- NOTE | 2018-01-18 09:37 | PN ---
Psychiatric Progress Note Vital Signs: Vital Signs Period Temp Pulse Resp BP Sys/Lopez Pulse Ox Last 24 Hr 98.2 F 80-98 18-20 110-129/61-95 Date of Session: 01/18/18 Chief Complaint:: Discharge Note HPI: Patient addressing Alcohol Dependence comorbid with Opioid Dependence on Agonist Therapy, Nicotine Dependence, Bipolar Disorder, Substance-Induced Anxiety Disorder and Substance-Induced Sleep Disorder ROS: Anemia, COPD, HTN, HLD, Current Medications: Active Medications Generic Name Dose Route Start Last Admin Trade Name Freq PRN Reason Stop Dose Admin Al Hydroxide/Mg Hydroxide 30 ml 01/05/18 16:03 01/15/18 10:41 Mylanta Oral Suspension - PO 30 ml Q6H PRN Administration DYSPEPSIA Albuterol Sulfate 2 puff 01/05/18 16:07 Ventolin Hfa Inhaler - IH Q4H PRN SHORT OF BREATH/WHEEZING Amlodipine Besylate 10 mg 01/06/18 10:00 01/17/18 10:18 Norvasc - PO 10 mg DAILY REBECCA Administration Aspirin 81 mg 01/06/18 10:00 01/17/18 10:18 Ecotrin - PO 81 mg DAILY REBECCA Administration Atorvastatin Calcium 20 mg 01/05/18 22:00 01/17/18 21:06 Lipitor - PO 20 mg HS REBECCA Administration Budesonide/Formoterol Fumarate 1 puff 01/05/18 22:00 01/17/18 21:06 Symbicort 160/4.5mcg - IH 1 puff BID REBECCA Administration Eucalyptus/Menthol/Phenol/Sorbitol 1 each 01/05/18 16:03 Cepastat Lozenge - MM Q4H PRN SORE THROAT Ferrous Sulfate 325 mg 01/06/18 10:00 01/17/18 10:18 Feosol - PO 325 mg DAILY REBECCA Administration Guaifenesin 10 ml 01/05/18 16:03 Robitussin Dm - PO Q6H PRN COUGH Hydrochlorothiazide 25 mg 01/05/18 22:00 01/17/18 21:06 Hctz - PO 25 mg BID REBECCA Administration Ibuprofen 400 mg 01/05/18 16:03 01/17/18 10:21 Motrin - PO 400 mg Q6H PRN Administration Pain Level 4-6 Insulin Detemir 15 units 01/05/18 22:00 01/17/18 21:04 Levemir Vial SQ 15 units HS REBECCA Administration Lactic Acid 1 applic 01/11/18 12:35 01/17/18 10:20 Lac-Hydrin 12 TP 1 applic DAILY REBECCA Administration Loperamide HCl 4 mg 01/05/18 16:03 01/13/18 06:57 Imodium - PO 4 mg Q6H PRN Administration DIARRHEA Losartan Potassium 50 mg 01/05/18 22:00 01/17/18 21:06 Cozaar - PO 50 mg BID REBECCA Administration Magnesium Citrate 300 ml 01/05/18 16:03 Citroma - PO Q48H PRN CONSTIPATION Magnesium Hydroxide 30 ml 01/05/18 16:03 Milk Of Magnesia - PO DAILY PRN CONSTIPATION Melatonin 5 mg 01/05/18 22:00 01/17/18 21:08 Melatonin PO 5 mg HS PRN Administration INSOMNIA Methadone HCl 40 mg/ Methadone 60 mg 01/12/18 06:00 01/18/18 06:27 HCl 20 mg PO 01/19/18 05:59 60 mg DAILY@0600 REBECCA Administration Nicotine 14 mg 01/06/18 10:00 01/17/18 10:17 Nicoderm Patch - TD 14 mg DAILY REBECCA Administration Nicotine Polacrilex 2 mg 01/05/18 16:05 Nicorette Gum - BUC Q2H PRN NICOTINE REPLACEMENT RX Non-Formulary Medication 2 cap 01/07/18 13:30 01/17/18 10:18 Amoxicillin - [Amoxicillin 500mg Capsule -] PO 2 cap DAILY REBECCA Administration Pantoprazole Sodium 40 mg 01/06/18 10:00 01/17/18 10:18 Protonix - PO 40 mg DAILY REBECCA Administration Multivit/Folic Acid/Iron 1 tab 01/06/18 10:00 01/17/18 10:18 Vitamins (Sjr) - PO 1 tab DAILY REBECCA Administration Pseudoephedrine/Triprolidine 1 combo 01/05/18 16:03 Actifed - PO TID PRN NASAL CONGESTION Quetiapine Fumarate 200 mg 01/07/18 22:00 01/17/18 21:08 Seroquel - PO 200 mg HS REBECCA Administration Sitagliptin Phosphate 25 mg 01/06/18 07:00 01/18/18 06:28 Januvia - PO 25 mg DAILY@0700 REBECCA Administration Tamsulosin HCl 0.4 mg 01/06/18 08:30 01/17/18 08:07 Flomax - PO 0.4 mg DAILY@0830 REBECCA Administration Thiamine HCl 100 mg 01/05/18 22:00 01/17/18 21:06 Vitamin B1 - PO 100 mg HS REBECCA Administration Current Side Effect: No Lab tests ordered: Yes Lab tests reviewed: Yes Provider note:: Patient will complete this program on 01/19/18. He has met his treatment goals and will continue to address his issues in outpatient treatment at [facility]. 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 He responded well to Seroquel 200 mg po HS. Script for that medication will be electronically transmitted to [facility] at [address] [place] [address]. He is stable for discharge on 01/19/18 Total face to face time:: 35 Mental Status Exam - Mental Status Exam Alert and Oriented to: Time, Place, Person Cognitive Function: Fair Patient Appearance: Well Groomed Mood: Hopeful, Euthymic Affect: Appropriate Patient Behavior: Cooperative Speech Pattern: Clear Voice Loudness: Normal Thought Process: Intact, Goal Oriented Thought Disorder: Not Present Hallucinations: Denies Suicidal Ideation: Denies Homicidal Ideation: Denies Insight/Judgement: Fair Sleep: Fair Appetite: Good Muscle strength/Tone: Normal Gait/Station: Normal Psychiatric Treatment Plan - Problem List (1) Alcohol dependence Current Visit: No Qualifiers: Substance use status: in withdrawal Complication of substance-induced condition: uncomplicated Qualified Code(s): F10.230 - Alcohol dependence with withdrawal, uncomplicated (2) Opioid dependence on agonist therapy Current Visit: No (3) Nicotine dependence Current Visit: Yes (4) Bipolar disorder Current Visit: Yes (5) Substance-induced anxiety disorder Current Visit: Yes (6) Substance-induced sleep disorder Current Visit: Yes (7) Anemia Current Visit: No Qualifiers: Anemia type: unspecified type Qualified Code(s): D64.9 - Anemia, unspecified (8) COPD (chronic obstructive pulmonary disease) Current Visit: No Qualifiers: COPD type: unspecified COPD Qualified Code(s): J44.9 - Chronic obstructive pulmonary disease, unspecified (9) DM2 (diabetes mellitus, type 2) Current Visit: No Qualifiers: Diabetes mellitus manager long term care insulin use: without halfway use (10) GERD (gastroesophageal reflux disease) Current Visit: No Qualifiers: Esophagitis presence: esophagitis presence not specified Qualified Code(s) : K21.9 - Gastro-esophageal reflux disease without esophagitis (11) Hypercholesteremia Current Visit: No (12) HTN (hypertension) Current Visit: Yes (13) BPH (benign prostatic hyperplasia) Current Visit: No (14) Varicose vein of leg Current Visit: No (15) Alcoholic hepatitis Current Visit: Yes Initial treatment plan: Patient will be discharged tomorrow and will be referred to [facility] for outpatient treatment
[2018-01-18 09:57] VITALS: PULSE 86
[2018-01-18] MEDS: HYDROCHLOROTHIAZIDE 25 MG TABLET (FP) PO SCH ×2 (10:38→21:24)
[2018-01-18] MEDS: FERROUS SO4 325 MG TABLET (FP) PO SCH (10:38)
[2018-01-18] MEDS: LOSARTAN POTASSIUM 50 MG TABLET (FP) PO SCH ×2 (10:38→21:24)
[2018-01-18] MEDS: PANTOPRAZOLE 40 MG TABLET (FP) PO SCH (10:38)
[2018-01-18] MEDS: PRENATAL VITAMINS W/ FOLIC ACID TABLET (FP) PO SCH (10:38)
[2018-01-18] MEDS: amLODIPine BESYLATE 10 MG TABLET (FP) PO SCH (10:38)
[2018-01-18] MEDS: NICOTINE 14 MG/24 HOURS TOPICAL PATCH TD SCH (10:38)
[2018-01-18] MEDS: IBUPROFEN 400 MG TABLET (FP) PO PRN (10:40)
[2018-01-18] MEDS: BUDESONIDE/FORMETEROL FUMARATE 160/4.5 mcg INHALER IH SCH ×2 (10:42→21:25)
[2018-01-18] MEDS: AMMONIUM LACTATE 12% LOTION 225 GM BOTTLE TP SCH (10:42)
[2018-01-18] MEDS: AMOXICILLIN PO SCH (10:53)
[2018-01-18] MEDS: ASPIRIN COATED 81 MG TABLET.EC PO SCH (10:54)
[2018-01-18] MEDS ORDERED: INSULIN (NOVOLOG) ASPART 100 UNITS/ML 10ML VIAL ONE (11:58)
[2018-01-18] MEDS: MELATONIN 5 MG TABLETS PO PRN (21:24)
[2018-01-18] MEDS: QUEtiapine FUMARATE 200 MG TABLET PO SCH (21:24)
[2018-01-18] MEDS: THIAMINE HCL 100 MG TABLET (FP) PO SCH (21:24)
[2018-01-18] MEDS: INSULIN (LEVEMIR) 100 UNITS/ML UNITS SQ SCH (21:24)
[2018-01-18] MEDS: ATORVASTATIN CA 20 MG TABLET (FP) PO SCH (21:24)
[2018-01-19] MEDS ORDERED: METHADONE HCL 40 MG DISPERSABLE TABLET ONE (05:49)
[2018-01-19] MEDS ORDERED: METHADONE HCL 10 MG TABLET ONE (05:49)
[2018-01-19] MEDS: sitaGLIPtin PHOSPHATE 25 MG TABLET (FP) PO SCH (06:37)
[2018-01-19] MEDS ORDERED: METHADONE 40 MG, METHADONE 20 MG PO SCH (06:45)
[2018-01-19 07:16] VITALS: BP 125/84; TEMP 98.5
[2018-01-19] MEDS: FERROUS SO4 325 MG TABLET (FP) PO SCH (09:07)
[2018-01-19] MEDS: LOSARTAN POTASSIUM 50 MG TABLET (FP) PO SCH (09:07)
[2018-01-19] MEDS: HYDROCHLOROTHIAZIDE 25 MG TABLET (FP) PO SCH (09:07)
[2018-01-19] MEDS: amLODIPine BESYLATE 10 MG TABLET (FP) PO SCH (09:07)
[2018-01-19] MEDS: TAMSULOSIN HCL 0.4 MG CAP PO SCH (09:07)
[2018-01-19] MEDS: PANTOPRAZOLE 40 MG TABLET (FP) PO SCH (09:07)
[2018-01-19] MEDS: PRENATAL VITAMINS W/ FOLIC ACID TABLET (FP) PO SCH (09:07)
[2018-01-19] MEDS: ASPIRIN COATED 81 MG TABLET.EC PO SCH (09:07)
[2018-01-19] MEDS: NICOTINE 14 MG/24 HOURS TOPICAL PATCH TD SCH (09:09)
[2018-01-19] MEDS: AMMONIUM LACTATE 12% LOTION 225 GM BOTTLE TP SCH (09:09)
[2018-01-19] MEDS: AMOXICILLIN PO SCH (09:09)
[2018-01-19] MEDS: BUDESONIDE/FORMETEROL FUMARATE 160/4.5 mcg INHALER IH SCH (09:10)
[2018-01-20] MEDS ORDERED: METHADONE 40 MG, METHADONE 20 MG PO SCH (06:00)
== END 2018-01-19 09:45 | disposition home or self-care (01) | DRG 772 ==
LOC: YASAS 15:22 → Y3W 15:23
PROVIDERS: ADMIT Psychiatry & Neurology Psychiatry; ATTEND Psychiatry & Neurology Psychiatry
PROC: HZ42ZZZ Group Counseling for Substance Abuse Treatment, Cognitive-Behavioral (ICD-10-PCS; principal; 2018-01-05)
DX: F10.20 Alcohol dependence, uncomplicated (principal); F11.20 Opioid dependence, uncomplicated; F19.280 Other psychoactive substance dependence with psychoactive substance-induced anxiety disorder; F19.282 Other psychoactive substance dependence with psychoactive substance-induced sleep disorder; F31.9 Bipolar disorder, unspecified; D64.9 Anemia, unspecified; I10 Essential (primary) hypertension; I83.90 Asymptomatic varicose veins of unspecified lower extremity; J44.9 Chronic obstructive pulmonary disease, unspecified; E11.9 Type 2 diabetes mellitus without complications; Z79.4 Long term (current) use of insulin; K70.10 Alcoholic hepatitis without ascites; K21.9 Gastro-esophageal reflux disease without esophagitis; L85.3 Xerosis cutis; N40.0 Benign prostatic hyperplasia without lower urinary tract symptoms; K08.409 Partial loss of teeth, unspecified cause, unspecified class
CPT/HCPCS: 36415; 80053; 81003; 81015; 82962; 90688; G0008

== ENCOUNTER 2018-05-01 12:54 | Inpatient (IN) | payer OTHER ==
[2018-05-01 13:23] VITALS: BMI 23.6
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
[2018-05-01] MEDS ORDERED: MAGNESIUM HYDROX 2400MG/30ML ORAL SUSPENSION 30 ML CUP PO PRN (15:54)
[2018-05-01] MEDS ORDERED: MAG HYDROX/AL HYDROX/SIMETH 30 ML UNIT-DOSE CUP PO PRN (15:54)
[2018-05-01] MEDS ORDERED: MAGNESIUM CITRATE 300 ML BOTTLE PO PRN (15:54)
[2018-05-01] MEDS ORDERED: IBUPROFEN 400 MG TABLET (FP) PO PRN (15:54)
[2018-05-01] MEDS ORDERED: LOPERAMIDE HCL 2 MG CAPSULE PO PRN (15:54)
[2018-05-01] MEDS ORDERED: P-EPHED 60MG/TRIPROLIDI 2.5MG TABLET PO PRN (15:54)
[2018-05-01] MEDS ORDERED: ACETAMINOPHEN 325 MG TABLET (FP) PO PRN (15:54)
[2018-05-01] MEDS ORDERED: MENTHOL/PHENOL 1 EACH UD MM PRN (15:54)
[2018-05-01] MEDS ORDERED: NICOTINE POLACRILEX 4 MG GUM BC PRN (15:54)
[2018-05-01] MEDS ORDERED: guaiFENesin/D-METHORPHAN HB 10 ML UNIT-DOSE CUPS PO PRN (15:54)
[2018-05-01] MEDS ORDERED: ALBUTEROL SO4 8 GM HFA INHALER IH PRN (15:56)
[2018-05-01] MEDS ORDERED: chlordiazePOXIDE HCL 25 MG CAPSULE PO PRN (16:01)
[2018-05-01] MEDS ORDERED: LORazepam 2 MG TABLET PO SCH ×2 (16:15→18:00)
[2018-05-01] MEDS ORDERED: chlordiazePOXIDE HCL 25 MG CAPSULE PO SCH (17:00)
[2018-05-01] MEDS: PANTOPRAZOLE 40 MG TABLET (FP) PO SCH (18:58)
[2018-05-01] MEDS ORDERED: MELATONIN 5 MG TABLETS PO PRN (22:00)
[2018-05-01] MEDS: BUDESONIDE/FORMETEROL FUMARATE 160/4.5 mcg INHALER IH SCH (22:35)
[2018-05-01] MEDS: THIAMINE HCL 100 MG TABLET (FP) PO SCH (22:36)
[2018-05-01] MEDS: ATORVASTATIN CA 20 MG TABLET (FP) PO SCH (22:36)
[2018-05-01] MEDS: HYDROCHLOROTHIAZIDE 25 MG TABLET (FP) PO SCH (22:37)
[2018-05-01] MEDS: LORazepam 1 MG TABLET PO SCH (23:37)
[2018-05-02] MEDS ORDERED: LORazepam 2 MG TABLET PO SCH
[2018-05-02] MEDS: LORazepam 1 MG TABLET PO SCH ×3 (05:35→17:12)
[2018-05-02] MEDS ORDERED: TRIMETHOBENZAMIDE HCL 200MG/2ML INJ IM PRN (09:28)
[2018-05-02] MEDS ORDERED: METHADONE HCL 10 MG TABLET (FOR DETOX USE ONLY) PO ONE (09:31)
[2018-05-02] MEDS ORDERED: METHADONE 40 MG, METHADONE 20 MG PO ONE (09:45)
[2018-05-02] MEDS ORDERED: METHADONE HCL 10 MG TABLET ONE (09:51)
[2018-05-02] MEDS ORDERED: METHADONE HCL 40 MG DISPERSABLE TABLET ONE (09:51)
[2018-05-02] MEDS: PANTOPRAZOLE 40 MG TABLET (FP) PO SCH (10:41)
[2018-05-02] MEDS: HYDROCHLOROTHIAZIDE 25 MG TABLET (FP) PO SCH ×2 (10:41→22:24)
[2018-05-02] MEDS: amLODIPine BESYLATE 10 MG TABLET (FP) PO SCH (10:41)
[2018-05-02] MEDS: BUDESONIDE/FORMETEROL FUMARATE 160/4.5 mcg INHALER IH SCH ×2 (10:41→22:24)
[2018-05-02] MEDS: ASPIRIN COATED 81 MG TABLET.EC PO SCH (10:41)
[2018-05-02] MEDS: PRENATAL VITAMINS W/ FOLIC ACID TABLET (FP) PO SCH (10:41)
[2018-05-02] MEDS: NICOTINE 14 MG/24 HOURS TOPICAL PATCH TD SCH (10:42)
[2018-05-02 11:11] LABS: ALK PHOS 264 U/L (45-117); ANION GAP 10 MMOL/L (8-16); BILIRUBIN,TOTAL 0.4 mg/dL (0.2-1); BLOOD UREA NITROGEN 27 mg/dL (7-18); CALCIUM 7.8 mg/dL (8.5-10.1); CHLORIDE 109 mmol/L (98-107); CO2 26 mmol/L (21-32); CREATININE 1.3 mg/dL (0.55-1.3); GLUCOSE,RANDOM 117 mg/dL (74-106); SGOT/AST 414 U/L (15-37); SGPT/ALT 142 U/L (13-61); SODIUM 145 mmol/L (136-145); TOT PROT 7.6 g/dl (6.4-8.2)
[2018-05-02 11:37] LABS: HEMATOCRIT 31.9 % (35.4-49); HEMOGLOBIN 10.8 GM/dL (11.7-16.9); MCH 37.2 pg (25.7-33.7); MCHC 33.9 g/dl (32.0-35.9); MEAN CELL VOLUME 109.6 fl (80-96); MEAN PLT VOLUME 9.6 fl (7.5-11.1); PLATELET COUNT 148 K/MM3 (134-434); RBC 2.91 M/mm3 (4.00-5.60); WHITE BLOOD COUNT 3.7 K/mm3 (4.0-10.0)
--- NOTE | 2018-05-02 11:45 | CONSULT ---
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 This is one of his multiple Detox admissions to [facility] for the same chemical use. He denies seizure disorder, withdrawal symptoms and black out. He takes Methadone 60 mg po daily. Refer to addiction counselor note for more detailed drug history Medical History: Enlarged liver, elevated liver enzymes, pancreatitis, anemia, COPD , hypercholesterolemia , DM , HTN. History of appendectomy Psychiatric History: He reproted numerous past hospital admission for his Bipolar disorder symptoms. [place] has been [place] to [place] hospital [place] the [place] and reecives [facility]. He acknowledged ahistory of suicide thinkig with no intent or karlo. he denies current psychosis, mood swings, anxiety, depression, suicide or homicidal ideation. Main issue is insomnia Mental Status Exam - Mental Status Exam Alert and Oriented to: Person Cognitive Function: Fair Patient Appearance: Unkempt Mood: Depressed Affect: Appropriate, Mood Congruent Patient Behavior: Cooperative Speech Pattern: Slurred Voice Loudness: Normal Thought Process: Intact Hallucinations: Denies Suicidal Ideation: Denies Homicidal Ideation: Denies Insight/Judgement: Poor Sleep: Poorly Appetite: Fair Muscle strength/Tone: Normal Gait/Station: Normal Psychiatric Findings - Problem List ([place] 1, 2,3) (1) Alcohol dependence Current Visit: No Status: Acute Qualifiers: Substance use status: in withdrawal Complication of substance-induced condition: uncomplicated Qualified Code(s): F10.230 - Alcohol dependence with withdrawal, uncomplicated (2) Drug-induced mood disorder Current Visit: No Status: Acute (3) Elevated LFTs Current Visit: No Status: Acute (4) History of pancreatitis Current Visit: No Status: Acute (5) Sedative hypnotic or anxiolytic dependence Current Visit: No Status: Acute (6) Substance-induced anxiety disorder Current Visit: No Status: Acute (7) Substance-induced sleep disorder Current Visit: No Status: Acute (8) Alcoholic hepatitis Current Visit: No Status: Chronic (9) Benzodiazepine dependence Current Visit: No Status: Chronic (10) Bipolar disorder Current Visit: No Status: Chronic Comment: History. (11) Cannabis dependence Current Visit: No Status: Chronic (12) Cocaine dependence Current Visit: No Status: Chronic Qualifiers: Substance use status: uncomplicated Qualified Code(s): F14.20 - Cocaine dependence, uncomplicated (13) GERD (gastroesophageal reflux disease) Current Visit: No Status: Chronic Qualifiers: Esophagitis presence: esophagitis presence not specified Qualified Code(s) : K21.9 - Gastro-esophageal reflux disease without esophagitis (14) HTN (hypertension) Current Visit: No Status: Chronic (15) Hypercholesteremia Current Visit: No Status: Chronic (16) Alcohol dependence with uncomplicated withdrawal Current Visit: No Status: Resolved
--- NOTE | 2018-05-02 16:42 | PN ---
[facility] CIWA - CIWA Score Nausea/Vomitin Muscle Tremors: 4-Moderate,w/Arms Extend Anxiety: 4-Mod. Anxious/Guarded Agitation: 4-Moderately Restless Paroxysmal Sweats: 3 Orientation: 0-Oriented Tacttile Disturbances: 0-None Auditory Disturbances: 0-None Visual Disturbances: 0-None Headache: 0-None Present CIWA-Ar Total Score: 17 BHS Progress Note (SOAP) Subjective: Sweating, tremor, N/V, interrupted sleep Objective: 05/02/18 16:37 Last Vital Signs Temp Pulse Resp BP Pulse Ox 97.9 F 84 20 145/89 05/02/18 15:01 05/02/18 15:30 05/02/18 15:30 05/02/18 15:01 Laboratory Tests 05/02/18 05/02/18 05/02/18 07:35 07:35 07:35 WBC 3.7 L RBC 2.91 L Hgb 10.8 L Hct 31.9 L MCV 109.6 H MCH 37.2 H MCHC 33.9 RDW 15.0 Plt Count 148 D MPV 9.6 Sodium 145 Potassium 3.0 L Chloride 109 H Carbon Dioxide 26 Anion Gap 10 BUN 27 H Creatinine 1.3 Creat Clearance w eGFR 57.53 Random Glucose 117 H Calcium 7.8 L Total Bilirubin 0.4 AST 414 H ALT 142 H Alkaline Phosphatase 264 H Total Protein 7.6 Albumin 4.0 RPR Titer Nonreactive Labs reviewed: anemia, K 3.0, prerenal azotemia, Ca 7.8, elevated LFTs Assessment: 05/02/18 16:39 Withdrawal symptoms Noted with hypokalemia, prerenal azotemia, anemia, hypocalcemia and elevated LFTs Plan: Continue detox Hypokalemia: K Dur 40 Meq PO x 2 doses then 20mg daily, repeat BMP Prerenal azotemia: encouraged PO water hydration Anemia: stable, possibly due to alcohol dependence, follow up with PCP for monitoring, encourage green leafy vegetables, need iron studies Hypocalcemia: start calcium carbonate 650mg PO bid, repeat serum calcium level on Thursday Elevated LFTs: repeat hepatic panel
[2018-05-02] MEDS ORDERED: POTASSIUM CHLORIDE ORAL LIQUID 20 MEQ/15 ML PO ONE ×2 (17:00→22:00)
[2018-05-02] MEDS ORDERED: chlordiazePOXIDE HCL 25 MG CAPSULE PO SCH (17:00)
[2018-05-02] MEDS: ATORVASTATIN CA 20 MG TABLET (FP) PO SCH (22:23)
[2018-05-02] MEDS: THIAMINE HCL 100 MG TABLET (FP) PO SCH (22:24)
[2018-05-02] MEDS: CALCIUM CARBONATE 650 MG TABLET PO SCH (22:24)
[2018-05-02] MEDS: LORazepam 1 MG TABLET PO PRN (22:25)
[2018-05-03] MEDS: LORazepam 1 MG TABLET PO SCH ×5 (00:28→23:57)
[2018-05-03] MEDS ORDERED: METHADONE HCL 10 MG TABLET PO SCH (07:30)
[2018-05-03] MEDS ORDERED: METHADONE HCL 10 MG TABLET ONE (07:30)
[2018-05-03] MEDS ORDERED: METHADONE HCL 40 MG DISPERSABLE TABLET ONE (07:30)
[2018-05-03] MEDS: METHADONE 40 MG, METHADONE 20 MG PO SCH (07:39)
[2018-05-03] MEDS ORDERED: POTASSIUM CHLORIDE TABS 20 MEQ TABLET.ER (FP) PO SCH (10:00)
[2018-05-03 10:07] LABS: URINE APPEARANCE CLEAR; URINE BILIRUBIN NEGATIVE (<2.0 mg/dL); URINE COLOR LTYELLOW; URINE GLUCOSE (UA) NEGATIVE (NEGATIVE); URINE KETONE NEGATIVE (NEGATIVE); URINE LEUK ESTERASE NEGATIVE (NEGATIVE); URINE NITRITE NEGATIVE (NEGATIVE); URINE PROTEIN 2+ (NEGATIVE); URINE UROBILINOGEN NEGATIVE mg/dL (0.2-1.0)
[2018-05-03] MEDS: HYDROCHLOROTHIAZIDE 25 MG TABLET (FP) PO SCH ×2 (10:07→22:02)
[2018-05-03] MEDS: PRENATAL VITAMINS W/ FOLIC ACID TABLET (FP) PO SCH (10:07)
[2018-05-03] MEDS: amLODIPine BESYLATE 10 MG TABLET (FP) PO SCH (10:07)
[2018-05-03] MEDS: PANTOPRAZOLE 40 MG TABLET (FP) PO SCH (10:07)
[2018-05-03] MEDS: CALCIUM CARBONATE 650 MG TABLET PO SCH ×2 (10:08→22:02)
[2018-05-03] MEDS: NICOTINE 14 MG/24 HOURS TOPICAL PATCH TD SCH (10:08)
[2018-05-03] MEDS: BUDESONIDE/FORMETEROL FUMARATE 160/4.5 mcg INHALER IH SCH ×2 (10:09→22:01)
[2018-05-03 10:40] LABS: EPI CELLS RARE /HPF (FEW); URINE MUCUS RARE
[2018-05-03] MEDS: ASPIRIN COATED 81 MG TABLET.EC PO SCH (10:52)
--- NOTE | 2018-05-03 13:32 | PN ---
Psychiatric Progress Note Vital Signs: Vital Signs Period Temp Pulse Resp BP Sys/Lopez Pulse Ox Last 24 Hr 96.8 F-99.0 F 74-100 18-20 142-156/89-101 Date of Session: 05/03/18 Chief Complaint:: " They forgot to write my seroquel ". HPI: Day 3 of detoxification treatment for this patient addressing alcohol, opioid and benzodiazepine dependence co-morbid with bipolar disorder. Hospital course is remarkable for abnormal LFTS, anemia, hypokalemia, dyslipidemia and GI manifestations. No acute psychiatric issues. Hydraulic Press Operator was called to see this patient who has complained about " not having gotten as promised by the psychiatrist ". ROS: Found lying in bed, awake, alert and cognitively intact. Feels fine. No specific somatic complaints. Current Medications: Active Medications Generic Name Dose Route Start Last Admin Trade Name Freq PRN Reason Stop Dose Admin Acetaminophen 650 mg 05/01/18 15:54 Tylenol - PO Q4H PRN FEVER Al Hydroxide/Mg Hydroxide 30 ml 05/01/18 15:54 Mylanta Oral Suspension - PO Q6H PRN DYSPEPSIA Albuterol Sulfate 2 puff 05/01/18 15:56 Ventolin Hfa Inhaler - IH Q4H PRN SHORT OF BREATH/WHEEZING Amlodipine Besylate 10 mg 05/02/18 10:00 05/03/18 10:07 Norvasc - PO 10 mg DAILY REBECCA Administration Aspirin 81 mg 05/02/18 10:00 05/03/18 10:52 Ecotrin - PO 81 mg DAILY REBECCA Administration Atorvastatin Calcium 20 mg 05/01/18 22:00 05/02/18 22:23 Lipitor - PO 20 mg HS REBECCA Administration Budesonide/Formoterol Fumarate 1 puff 05/01/18 22:00 05/03/18 10:09 Symbicort 160/4.5mcg - IH 1 puff BID REBECCA Administration Calcium Carbonate 650 mg 05/02/18 22:00 05/03/18 10:08 Calcium Carbonate - PO 650 mg BID REBECCA Administration Eucalyptus/Menthol/Phenol/Sorbitol 1 each 05/01/18 15:54 Cepastat Lozenge - MM Q4H PRN SORE THROAT Guaifenesin 10 ml 05/01/18 15:54 Robitussin Dm - PO Q6H PRN COUGH Hydrochlorothiazide 25 mg 05/01/18 22:00 05/03/18 10:07 Hctz - PO 25 mg BID REBECCA Administration Ibuprofen 400 mg 05/01/18 15:54 Motrin - PO Q6H PRN PAIN LEVEL 4-6 Loperamide HCl 4 mg 05/01/18 15:54 Imodium - PO Q6H PRN DIARRHEA Lorazepam 1 mg 05/02/18 18:00 05/03/18 12:01 Ativan - PO 05/04/18 12:01 1 mg Q6HPO REBECCA Administration Lorazepam 2 mg 05/04/18 18:00 Ativan PO 05/04/18 18:01 ONCE ONE Lorazepam 1 mg 05/01/18 16:14 05/02/18 22:25 Ativan - PO 1 mg Q4H PRN Administration ANXIETY Magnesium Citrate 300 ml 05/01/18 15:54 Citroma - PO Q48H PRN CONSTIPATION Magnesium Hydroxide 30 ml 05/01/18 15:54 Milk Of Magnesia - PO DAILY PRN CONSTIPATION Melatonin 5 mg 05/01/18 22:00 Melatonin PO HS PRN INSOMNIA Methadone HCl 40 mg/ Methadone 60 mg 05/03/18 07:30 05/03/18 07:39 HCl 20 mg PO 60 mg DAILY@0600 REBECCA Administration Nicotine 14 mg 05/02/18 10:00 05/03/18 10:08 Nicoderm Patch - TD 14 mg DAILY REBECCA Administration Nicotine Polacrilex 4 mg 05/01/18 15:54 Nicorette Gum - BC Q2H PRN NICOTINE REPLACEMENT RX Pantoprazole Sodium 40 mg 05/01/18 17:00 05/03/18 10:07 Protonix - PO 40 mg DAILY REBECCA Administration Potassium Chloride 20 meq 05/03/18 10:00 05/03/18 10:58 K-Dur - PO 20 meq DAILY REBECCA Administration Multivit/Folic Acid/Iron 1 tab 05/02/18 10:00 05/03/18 10:07 Vitamins (Sjr) - PO 1 tab DAILY REBECCA Administration Pseudoephedrine/Triprolidine 1 combo 05/01/18 15:54 Actifed - PO TID PRN NASAL CONGESTION Thiamine HCl 100 mg 05/01/18 22:00 05/02/18 22:24 Vitamin B1 - PO 100 mg HS REBECCA Administration Trimethobenzamide HCl 200 mg 05/02/18 09:28 Tigan Injection - IM Q8H PRN NAUSEA AND/OR VOMITING Medication(s) Change(s): No changes. Seroquel will not be restarted in view of abnormal liver function tests, antecedent of pancreatitis and current history of chronic non-adherence to the medication prior to [facility] visit. No urgency. Current Side Effect: No Lab tests ordered: Yes (see medical consult notes for details) Lab tests reviewed: Yes Provider note:: Chart reviewed. Labs revisited. Patient is interviewed at bedside. Observed resting quietly. Mr Whitmore is conversant, tranquil and friendly. Calm mood, appropriate affect, unremarkable demeanor. Patient is logical and goal-directed. Asymptomatic for mood disorder or psychosis. Admits to poor adherence to quetiapine and OPD care. Insomnia is the reason for request for seroquel. Alternates offered to the patient. Not interested. Stable mental status. Mental Status Exam - Mental Status Exam Alert and Oriented to: Time, Place, Person Cognitive Function: Good Patient Appearance: Well Groomed Mood: Withdrawn Affect: Appropriate, Normal Range Patient Behavior: Fatigued, Cooperative Speech Pattern: Clear, Appropriate Voice Loudness: Normal Thought Process: Intact, Goal Oriented Thought Disorder: Not Present Hallucinations: Denies Suicidal Ideation: Denies Homicidal Ideation: Denies Insight/Judgement: Poor Sleep: Fair Appetite: Fair Muscle strength/Tone: Normal (no complaint offered) Gait/Station: Other (supine for entire duration of interview) Psychiatric Treatment Plan - Problem List (1) Alcohol dependence with uncomplicated withdrawal Current Visit: Yes (2) Opioid dependence on agonist therapy Current Visit: Yes (3) Sedative hypnotic or anxiolytic dependence Current Visit: Yes (4) Nicotine dependence Current Visit: Yes (5) Drug-induced mood disorder Current Visit: Yes (6) Insomnia Current Visit: Yes
--- NOTE | 2018-05-03 14:18 | PN ---
[facility] CIWA - CIWA Score Nausea/Vomitin-Mild Nausea/No Vomiting Muscle Tremors: 3 Anxiety: 2 Agitation: 2 Paroxysmal Sweats: 1-Minimal Palms Moist Orientation: 0-Oriented Tacttile Disturbances: 0-None Auditory Disturbances: 1-Very Mild Visual Disturbances: 0-None Headache: 1-Very Mild CIWA-Ar Total Score: 11 S Progress Note (SOAP) Subjective: mild tremor less sweating tolerate food and fluid well slight muscle cramping patient preferred to leave the detox unit tomorrow 05/04/18 early around 5-6 am that he feel better today and would like to return to his methadone program informed wether condition that the patient is confident to leave the detox facility around 5-6 am Objective: 05/03/18 14:22 Vital Signs Temperature 98.2 F 05/03/18 14:10 Pulse Rate 96 H 05/03/18 14:10 Respiratory Rate 18 05/03/18 14:10 Blood Pressure 104/68 05/03/18 14:10 O2 Sat by Pulse Oximetry (%) Laboratory Last Values WBC 3.7 K/mm3 (4.0-10.0) L 05/02/18 07:35 RBC 2.91 M/mm3 (4.00-5.60) L 05/02/18 07:35 Hgb 10.8 GM/dL (11.7-16.9) L 05/02/18 07:35 Hct 31.9 % (35.4-49) L 05/02/18 07:35 MCV 109.6 fl (80-96) H 05/02/18 07:35 MCH 37.2 pg (25.7-33.7) H 05/02/18 07:35 MCHC 33.9 g/dl (32.0-35.9) 05/02/18 07:35 RDW 15.0 % (11.9-15.9) 05/02/18 07:35 Plt Count 148 K/MM3 (134-434) D 05/02/18 07:35 MPV 9.6 fl (7.5-11.1) 05/02/18 07:35 Sodium 145 mmol/L (136-145) 05/02/18 07:35 Potassium 3.0 mmol/L (3.5-5.1) L 05/02/18 07:35 Chloride 109 mmol/L (98-107) H 05/02/18 07:35 Carbon Dioxide 26 mmol/L (21-32) 05/02/18 07:35 Anion Gap 10 MMOL/L (8-16) 05/02/18 07:35 BUN 27 mg/dL (7-18) H 05/02/18 07:35 Creatinine 1.3 mg/dL (0.55-1.3) 05/02/18 07:35 Creat Clearance w eGFR 57.53 (>60) 05/02/18 07:35 Random Glucose 117 mg/dL (74-106) H 05/02/18 07:35 Calcium 7.8 mg/dL (8.5-10.1) L 05/02/18 07:35 Total Bilirubin 0.4 mg/dL (0.2-1) 05/02/18 07:35 AST 414 U/L (15-37) H 05/02/18 07:35 ALT 142 U/L (13-61) H 05/02/18 07:35 Alkaline Phosphatase 264 U/L (45-117) H 05/02/18 07:35 Total Protein 7.6 g/dl (6.4-8.2) 05/02/18 07:35 Albumin 4.0 g/dl (3.4-5.0) 05/02/18 07:35 Urine Color Ltyellow 05/03/18 07:55 Urine Appearance Clear 05/03/18 07:55 Urine pH 6.0 (5.0-8.0) 05/03/18 07:55 Ur Specific [place] 1.011 (1.010-1.035) 05/03/18 07:55 Urine Protein 2+ (NEGATIVE) H 05/03/18 07:55 Urine Glucose (UA) Negative (NEGATIVE) 05/03/18 07:55 Urine Ketones Negative (NEGATIVE) 05/03/18 07:55 Urine Blood Negative (NEGATIVE) 05/03/18 07:55 Urine Nitrite Negative (NEGATIVE) 05/03/18 07:55 Urine Bilirubin Negative (<2.0 mg/dL) 05/03/18 07:55 Urine Urobilinogen Negative mg/dL (0.2-1.0) 05/03/18 07:55 Ur Leukocyte Esterase Negative (NEGATIVE) 05/03/18 07:55 Urine WBC (Auto) <1 /hpf (3-5) 05/03/18 07:55 Urine RBC (Auto) None /hpf (0-3) 05/03/18 07:55 Ur Epithelial Cells Rare /HPF (FEW) 05/03/18 07:55 Urine Mucus Rare 05/03/18 07:55 RPR Titer Nonreactive (NONREACTIVE) 05/02/18 07:35 lab noted low K+ potassium supplement liver enzyme elevation repeat camp low ca++ Assessment: 05/03/18 14:23 mild withdrawal sx hypokalemia hypocalemia liver enzyme elevation Plan: continue detox
[2018-05-03] MEDS ORDERED: chlordiazePOXIDE 5 MG CAPSULE PO SCH (17:00)
[2018-05-03] MEDS ORDERED: LOSARTAN POTASSIUM 50 MG TABLET (FP) PO ONE (18:00)
[2018-05-03 21:21] VITALS: BP 144/94; PULSE 87; TEMP 99.3
[2018-05-03] MEDS ORDERED: QUEtiapine FUMARATE 100 MG TABLET (FP) PO SCH (22:00)
[2018-05-03] MEDS: ATORVASTATIN CA 20 MG TABLET (FP) PO SCH (22:01)
[2018-05-03] MEDS: THIAMINE HCL 100 MG TABLET (FP) PO SCH (22:01)
[2018-05-03] MEDS: LORazepam 1 MG TABLET PO PRN (22:02)
[2018-05-04] MEDS ORDERED: METHADONE HCL 10 MG TABLET ONE (03:07)
[2018-05-04] MEDS ORDERED: METHADONE HCL 40 MG DISPERSABLE TABLET ONE (03:07)
[2018-05-04] MEDS: METHADONE 40 MG, METHADONE 20 MG PO SCH (05:13)
[2018-05-04] MEDS: LORazepam 1 MG TABLET PO SCH (05:15)
[2018-05-04] MEDS ORDERED: LOSARTAN POTASSIUM 50 MG TABLET (FP) PO SCH ×2 (10:00)
--- NOTE | 2018-05-04 14:00 | DS ---
[facility] Detox Discharge Summary Admission Date: 05/01/18 Discharge Date: 05/04/18 - History Present History: Alcohol Dependence Additional Comments: 52 YEARS OLD MALE ADMITTED ON 05/01/18 FOR ALCOHOL WITHDRAWAL STABILIZATION FEELING BETTER THROUGHOUT THE DETOX PROCESS AFTERCARE PER COUNSELOR ARRANGEMENT Pertinent Past History: PATIENT LEFT THE DETOX AROUND 5 AM THE STAMPING BENCH DIE MAKER DID NOT ASSESS NOR EVALUATE THE PATIENT PRIOR TO DISCHARGE PATIENT ACKNOWLEDGED THE ELEVATION OF LIVER ENZYME AND LOW RBC BASED ON PRIOR AGREEMENT THAT THE PATIENT RETURN TO [facility] CONTINUE 60 MG PO DAILY AND FOLLOW UP WITH MEDICAL PROVIDER AT THE [facility] - Physical Exam Results Vital Signs: Vital Signs Temperature 99.3 F 05/03/18 21:20 Pulse Rate 87 05/03/18 21:20 Respiratory Rate 18 05/04/18 00:30 Blood Pressure 144/94 05/03/18 21:20 O2 Sat by Pulse Oximetry (%) Pertinent Admission Physical Exam Findings: ALCOHOL WITHDRAWAL SX Laboratory Last Values WBC 3.7 K/mm3 (4.0-10.0) L 05/02/18 07:35 RBC 2.91 M/mm3 (4.00-5.60) L 05/02/18 07:35 Hgb 10.8 GM/dL (11.7-16.9) L 05/02/18 07:35 Hct 31.9 % (35.4-49) L 05/02/18 07:35 MCV 109.6 fl (80-96) H 05/02/18 07:35 MCH 37.2 pg (25.7-33.7) H 05/02/18 07:35 MCHC 33.9 g/dl (32.0-35.9) 05/02/18 07:35 RDW 15.0 % (11.9-15.9) 05/02/18 07:35 Plt Count 148 K/MM3 (134-434) D 05/02/18 07:35 MPV 9.6 fl (7.5-11.1) 05/02/18 07:35 Sodium 145 mmol/L (136-145) 05/02/18 07:35 Potassium 3.0 mmol/L (3.5-5.1) L 05/02/18 07:35 Chloride 109 mmol/L (98-107) H 05/02/18 07:35 Carbon Dioxide 26 mmol/L (21-32) 05/02/18 07:35 Anion Gap 10 MMOL/L (8-16) 05/02/18 07:35 BUN 27 mg/dL (7-18) H 05/02/18 07:35 Creatinine 1.3 mg/dL (0.55-1.3) 05/02/18 07:35 Creat Clearance w eGFR 57.53 (>60) 05/02/18 07:35 Random Glucose 117 mg/dL (74-106) H 05/02/18 07:35 Calcium 7.8 mg/dL (8.5-10.1) L 05/02/18 07:35 Total Bilirubin 0.4 mg/dL (0.2-1) 05/02/18 07:35 AST 414 U/L (15-37) H 05/02/18 07:35 ALT 142 U/L (13-61) H 05/02/18 07:35 Alkaline Phosphatase 264 U/L (45-117) H 05/02/18 07:35 Total Protein 7.6 g/dl (6.4-8.2) 05/02/18 07:35 Albumin 4.0 g/dl (3.4-5.0) 05/02/18 07:35 Urine Color Ltyellow 05/03/18 07:55 Urine Appearance Clear 05/03/18 07:55 Urine pH 6.0 (5.0-8.0) 05/03/18 07:55 Ur Specific [place] 1.011 (1.010-1.035) 05/03/18 07:55 Urine Protein 2+ (NEGATIVE) H 05/03/18 07:55 Urine Glucose (UA) Negative (NEGATIVE) 05/03/18 07:55 Urine Ketones Negative (NEGATIVE) 05/03/18 07:55 Urine Blood Negative (NEGATIVE) 05/03/18 07:55 Urine Nitrite Negative (NEGATIVE) 05/03/18 07:55 Urine Bilirubin Negative (<2.0 mg/dL) 05/03/18 07:55 Urine Urobilinogen Negative mg/dL (0.2-1.0) 05/03/18 07:55 Ur Leukocyte Esterase Negative (NEGATIVE) 05/03/18 07:55 Urine WBC (Auto) <1 /hpf (3-5) 05/03/18 07:55 Urine RBC (Auto) None /hpf (0-3) 05/03/18 07:55 Ur Epithelial Cells Rare /HPF (FEW) 05/03/18 07:55 Urine Mucus Rare 05/03/18 07:55 RPR Titer Nonreactive (NONREACTIVE) 05/02/18 07:35 LAB NOTED - Treatment Hospital Course: Detox Protocol Followed, Detoxed Safely, Responded well, Discharged Condition Good, Rehab Referral Accepted Patient has Accepted a Rehab Referral to: [facility] - Medication Discharge Medications: Ambulatory Orders Famotidine 20 mg PO BID #60 tab 09/23/16 Tiotropium [place] [Spiriva] 1 puff IH DAILY 30 Days #30 cap 09/10/17 Amoxicillin - [Amoxicillin 500mg Capsule -] 2 cap PO DAILY 01/07/18 Albuterol Sulfate Inhaler - [Ventolin HFA Inhaler -] 2 inh IH Q4H PRN #1 inh 11/28 Amlodipine Besylate [Norvasc -] 10 mg PO DAILY #14 tablet 01/18/18 Aspirin [Aspirin EC] 81 mg PO DAILY #14 tablet.dr 01/18/18 Atorvastatin Ca [Lipitor] 20 mg PO HS #14 tablet 01/18/18 Budesonide/Formeterol Fumarate [SYMBICORT 160/4.5mcg -] 1 inh PO BID #1 inh 11/28 Ferrous Sulfate [Feosol] 325 mg PO DAILY #30 ud 01/18/18 Hydrochlorothiazide 25 mg PO BID #14 tab 01/18/18 Insulin Glargine,Hum.rec.anlog [Lantus] 15 unit SQ HS #1 vial 01/18/18 Losartan Potassium [Cozaar -] 50 mg PO BID #30 tab 01/18/18 Pantoprazole Sodium [Protonix -] 40 mg PO DAILY #14 tablet.ec 01/18/18 Quetiapine Fumarate [Seroquel -] 200 mg PO HS #30 tablet 01/18/18 Sitagliptin Phosphate [Januvia -] 25 mg PO DAILY@0700 #14 tab 01/18/18 Tamsulosin HCl [Flomax -] 0.4 mg PO DAILY@0830 #14 cap.er.24h 01/18/18 Methadone [Dolophine -] 60 mg PO DAILY@0600 05/03/18 - Diagnosis (1) Alcohol dependence with uncomplicated withdrawal Status: Acute (2) Drug-induced mood disorder Status: Suspected (3) Elevated LFTs Status: Chronic (4) History of pancreatitis Status: Resolved (5) Weight loss Status: Acute (6) COPD (chronic obstructive pulmonary disease) Status: Chronic Qualifiers: COPD type: unspecified COPD Qualified Code(s): J44.9 - Chronic obstructive pulmonary disease, unspecified (7) GERD (gastroesophageal reflux disease) Status: Chronic Qualifiers: Esophagitis presence: without esophagitis Qualified Code(s): K21.9 - Gastro -esophageal reflux disease without esophagitis (8) HTN (hypertension) Status: Chronic Qualifiers: Hypertension type: essential hypertension Qualified Code(s): I10 - Essential (primary) hypertension (9) Methadone maintenance therapy patient Status: Chronic (10) Nicotine dependence Status: Acute Qualifiers: Nicotine product type: cigarettes Substance use status: in withdrawal Qualified Code(s): F17.213 - Nicotine dependence, cigarettes, with withdrawal - AMA Did Patient Leave Against Medical Advice: No
[2018-05-04] MEDS ORDERED: chlordiazePOXIDE HCL 10 MG CAPSULE PO SCH (17:00)
[2018-05-04] MEDS ORDERED: LORazepam 2 MG TABLET PO ONE (18:00)
== END 2018-05-04 05:17 | disposition home or self-care (01) | DRG 773 ==
LOC: YASAS 12:54 → Y3N 16:38
PROVIDERS: ADMIT Neuromusculoskeletal Medicine & OMM; ATTEND Neuromusculoskeletal Medicine & OMM
PROC: HZ2ZZZZ Detoxification Services for Substance Abuse Treatment (ICD-10-PCS; principal; 2018-05-01)
DX: F10.230 Alcohol dependence with withdrawal, uncomplicated (principal); F11.20 Opioid dependence, uncomplicated; F13.20 Sedative, hypnotic or anxiolytic dependence, uncomplicated; F17.213 Nicotine dependence, cigarettes, with withdrawal; F19.24 Other psychoactive substance dependence with psychoactive substance-induced mood disorder; F31.9 Bipolar disorder, unspecified; E11.9 Type 2 diabetes mellitus without complications; R16.0 Hepatomegaly, not elsewhere classified; I10 Essential (primary) hypertension; J44.9 Chronic obstructive pulmonary disease, unspecified; R94.5 Abnormal results of liver function studies; G47.00 Insomnia, unspecified; E87.6 Hypokalemia; E83.51 Hypocalcemia; R79.89 Other specified abnormal findings of blood chemistry; D64.9 Anemia, unspecified; K21.9 Gastro-esophageal reflux disease without esophagitis; E78.00 Pure hypercholesterolemia, unspecified; Z87.19 Personal history of other diseases of the digestive system; Z79.4 Long term (current) use of insulin; Z91.5 Personal history of self-harm
CPT/HCPCS: 36415; 80053; 81003; 81015; 85027; 86593

== ENCOUNTER 2018-07-06 15:47 | Inpatient (IN) | payer OTHER ==
[2018-07-06 17:43] VITALS: BMI 23.0
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
[2018-07-06] MEDS ORDERED: LORazepam 1 MG TABLET PO PRN (19:03)
[2018-07-06] MEDS ORDERED: MAG HYDROX/AL HYDROX/SIMETH 30 ML UNIT-DOSE CUP PO PRN (19:05)
[2018-07-06] MEDS ORDERED: MENTHOL/PHENOL 1 EACH UD MM PRN (19:05)
[2018-07-06] MEDS ORDERED: METHOCARBAMOL 500 MG TABLET PO PRN (19:05)
[2018-07-06] MEDS ORDERED: MAGNESIUM HYDROX 2400MG/30ML ORAL SUSPENSION 30 ML CUP PO PRN (19:05)
[2018-07-06] MEDS ORDERED: BISMUTH SUBSALICYLATE 524 MG/30 ML UD PO PRN (19:05)
[2018-07-06] MEDS ORDERED: DICYCLOMINE HCL 10 MG CAPSULE PO PRN (19:05)
[2018-07-06] MEDS ORDERED: ONDANSETRON *ODT* 4 MG TABLET SL PRN (19:05)
[2018-07-06] MEDS ORDERED: MAGNESIUM CITRATE 300 ML BOTTLE PO PRN (19:05)
[2018-07-06] MEDS ORDERED: hydrOXYzine PAMOATE 25 MG CAPSULE (FP) PO PRN (19:05)
[2018-07-06] MEDS ORDERED: ALBUTEROL SO4 8 GM HFA INHALER IH PRN (19:07)
[2018-07-06] MEDS ORDERED: ALBUTEROL SO4 0.083% IH SOL 2.5 MG/3 ML VIAL.NEB. NEB PRN (19:10)
[2018-07-06] MEDS ORDERED: LORazepam 2 MG TABLET PO ONE (22:00)
[2018-07-06] MEDS: QUEtiapine FUMARATE 200 MG TABLET PO SCH (23:02)
[2018-07-06] MEDS: RANITIDINE HCL 150 MG TABLET (FP) PO SCH (23:02)
[2018-07-06] MEDS: MELATONIN 5 MG TABLETS PO PRN (23:03)
[2018-07-06] MEDS: THIAMINE HCL 100 MG TABLET (FP) PO SCH (23:03)
[2018-07-06] MEDS: LORazepam 2 MG TABLET PO SCH (23:04)
[2018-07-06 23:41] LABS: EPI CELLS 2.2 /HPF (0-5); PH,URINE 5.5 (5.0-8.0); URINE APPEARANCE CLEAR; URINE BACTERIA 1.7 /hpf (NEGATIVE); URINE BILIRUBIN NEGATIVE (NEGATIVE); URINE CASTS 3 /hpf (0-8); URINE COLOR YELLOW; URINE GLUCOSE (UA) NEGATIVE (NEGATIVE); URINE KETONE NEGATIVE (NEGATIVE); URINE LEUK ESTERASE NEGATIVE (NEGATIVE); URINE NITRITE NEGATIVE (NEGATIVE); URINE PROTEIN 2+ (NEGATIVE); URINE RBC 0 /hpf (0-4); URINE WBC 1 /hpf (0-5)
[2018-07-07] MEDS ORDERED: GLUCAGON 1 MG KIT IM ONE ×2 (00:52→07:00)
--- NOTE | 2018-07-07 01:29 | PN ---
S Progress Note Note: Patient was unresponsive to tactile stimuli and he was pale. Ms. Elvie Norwood RN reported that his blood sugar level was 59mg/dl Vital Signs Temperature 97.0 F L 07/07/18 04:22 Pulse Rate 73 07/07/18 04:22 Respiratory Rate 18 07/07/18 04:22 Blood Pressure 113/80 07/07/18 04:22 O2 Sat by Pulse Oximetry (%) Action: Glucagon 1mg intramuscular ordered Blood sugar rechecked and was B/S 161mg dl. Will monitor patient
[2018-07-07] MEDS ORDERED: INSULIN SLIDING SCALE (NOVOLOG) 1 VIAL SQ SCH ×2 (07:00→08:48)
[2018-07-07] MEDS: LORazepam 2 MG TABLET PO SCH ×3 (07:20→17:00)
--- NOTE | 2018-07-07 07:47 | PN ---
[facility] Progress Note Note: Patient's blood sugar this morning is 31mg/dl and he is unresponsive Vital Signs Temperature 97.0 F L 07/07/18 07:32 Pulse Rate 71 07/07/18 07:32 Respiratory Rate 18 07/07/18 07:32 Blood Pressure 97/60 07/07/18 07:32 O2 Sat by Pulse Oximetry (%) Action: Glucagon 1m intramuscular ordered IV access insert ordered D51/2Ns at 42cc/hour ordered Transfer patient to ER for further evaluation. Endorsed to Dr. Brown
[2018-07-07] MEDS ORDERED: METHADONE 40 MG, METHADONE 20 MG PO ONE ×2 (10:00→15:15)
[2018-07-07] MEDS ORDERED: METHADONE HCL 10 MG TABLET PO ONE ×2 (10:00→14:57)
[2018-07-07] MEDS: TAMSULOSIN HCL 0.4 MG CAP PO SCH (10:46)
[2018-07-07] MEDS: LIPASE/PROTEASE/AMYLASE 6,000 UNIT CAPSULE PO SCH ×3 (10:46→18:30)
[2018-07-07] MEDS: QUEtiapine FUMARATE 200 MG TABLET PO SCH ×2 (10:47→22:40)
[2018-07-07] MEDS: NICOTINE 21 MG/24 HOURS TOPICAL PATCH TD SCH (10:47)
[2018-07-07] MEDS: amLODIPine BESYLATE 10 MG TABLET (FP) PO SCH (10:47)
[2018-07-07] MEDS: PRENATAL VITAMINS W/ FOLIC ACID TABLET (FP) PO SCH (10:47)
[2018-07-07] MEDS: RANITIDINE HCL 150 MG TABLET (FP) PO SCH ×2 (10:47→22:40)
[2018-07-07] MEDS ORDERED: METHADONE HCL 40 MG DISPERSABLE TABLET ONE (15:12)
[2018-07-07] MEDS ORDERED: METHADONE HCL 10 MG TABLET ONE (15:12)
--- NOTE | 2018-07-07 15:39 | PN ---
S CIWA - CIWA Score Nausea/Vomitin-No Nausea/No Vomiting Muscle Tremors: 2 Anxiety: 1-Mildly Anxious Agitation: 2 Paroxysmal Sweats: 1-Minimal Palms Moist Orientation: 1-Uncertain about Date Tacttile Disturbances: 0-None Auditory Disturbances: 0-None Visual Disturbances: 0-None Headache: 1-Very Mild CIWA-Ar Total Score: 8 B[facility] Progress Note (SOAP) Subjective: tremor return from ER 139/90, 96, 18, 99.1, alert ambulating on hallway steady gait, both wrist gauze tapped no acute bleeding, requesting methadone nurses called ER confirmed that the patient did not received methadone at the ER order methadone 60 mg x 1 Objective: 07/07/18 15:54 Vital Signs Temperature 99.1 F 07/07/18 14:30 Pulse Rate 92 H 07/07/18 15:30 Respiratory Rate 20 07/07/18 15:30 Blood Pressure 139/90 07/07/18 14:30 O2 Sat by Pulse Oximetry (%) Laboratory Last Values POC Glucometer 142 UNITS (80-120) 07/07/18 07:30 Urine Color Yellow 07/06/18 22:02 Urine Appearance Clear 07/06/18 22:02 Urine pH 5.5 (5.0-8.0) 07/06/18 22:02 Ur Specific [place] 1.017 (1.010-1.035) 07/06/18 22:02 Urine Protein 2+ (NEGATIVE) H 07/06/18 22:02 Urine Glucose (UA) Negative (NEGATIVE) 07/06/18 22:02 Urine Ketones Negative (NEGATIVE) 07/06/18 22:02 Urine Blood Negative (NEGATIVE) 07/06/18 22:02 Urine Nitrite Negative (NEGATIVE) 07/06/18 22:02 Urine Bilirubin Negative (NEGATIVE) 07/06/18 22:02 Urine Urobilinogen 1.0 mg/dL (0.2-1.0) 07/06/18 22:02 Ur Leukocyte Esterase Negative (NEGATIVE) 07/06/18 22:02 Urine WBC (Auto) 1 /hpf (0-5) 07/06/18 22:02 Urine RBC (Auto) 0 /hpf (0-4) 07/06/18 22:02 Urine Casts (Auto) 3 /hpf (0-8) 07/06/18 22:02 U Epithel Cells (Auto) 2.2 /HPF (0-5) 07/06/18 22:02 Urine Bacteria (Auto) 1.7 /hpf (NEGATIVE) 07/06/18 22:02 lab oted Assessment: 07/07/18 15:54 withdrawal sx Plan: continue detox
[2018-07-07] MEDS: INSULIN SLIDING SCALE (NOVOLOG) 1 VIAL SQ SCH (16:39)
--- NOTE | 2018-07-07 18:32 | PN ---
[facility] Progress Note Note: Pt came back from [facility] after being sent there for low BS- ~30 and unresponsiveness about 12 hours ago. No clear etiology of this- pt was diabetic but not given any Diabetic medications. Only on SS insulin coverage. Pt is on methadone MAT 60mg qd and detox protocol for alcohol. Will check BGM q hour Hold standing dose ativan at night, and give low dose ativan 0.5mg prn for withdrawal Sx.
[2018-07-07] MEDS: THIAMINE HCL 100 MG TABLET (FP) PO SCH (22:35)
[2018-07-07] MEDS: LORazepam 1 MG TABLET PO SCH (22:38)
[2018-07-08] MEDS ORDERED: METHADONE HCL 40 MG DISPERSABLE TABLET ONE (04:27)
[2018-07-08] MEDS ORDERED: METHADONE HCL 10 MG TABLET ONE (04:27)
[2018-07-08] MEDS: LORazepam 1 MG TABLET PO SCH ×3 (05:25→16:57)
[2018-07-08] MEDS ORDERED: METHADONE HCL 10 MG TABLET PO SCH (06:00)
[2018-07-08] MEDS: METHADONE 40 MG, METHADONE 20 MG PO SCH (06:11)
[2018-07-08] MEDS: INSULIN SLIDING SCALE (NOVOLOG) 1 VIAL SQ SCH (07:04)
[2018-07-08] MEDS: LORazepam 0.5 MG TABLET PO PRN ×3 (07:18→22:19)
[2018-07-08] MEDS: TAMSULOSIN HCL 0.4 MG CAP PO SCH (10:17)
[2018-07-08] MEDS: QUEtiapine FUMARATE 200 MG TABLET PO SCH ×2 (10:18→22:21)
[2018-07-08] MEDS: RANITIDINE HCL 150 MG TABLET (FP) PO SCH ×2 (10:18→22:21)
[2018-07-08] MEDS: amLODIPine BESYLATE 10 MG TABLET (FP) PO SCH (10:18)
[2018-07-08] MEDS: PRENATAL VITAMINS W/ FOLIC ACID TABLET (FP) PO SCH (10:18)
[2018-07-08] MEDS: LIPASE/PROTEASE/AMYLASE 6,000 UNIT CAPSULE PO SCH ×3 (10:18→16:58)
[2018-07-08] MEDS: DEXTROSE 5%-0.45% SALINE 1,000 ML IV SCH (10:19)
[2018-07-08] MEDS: NICOTINE 21 MG/24 HOURS TOPICAL PATCH TD SCH (10:19)
--- NOTE | 2018-07-08 10:45 | PN ---
S CIWA - CIWA Score Nausea/Vomitin-No Nausea/No Vomiting Muscle Tremors: 2 Anxiety: 0-No Anxiety, at Ease Agitation: 1-Slight > Activity Paroxysmal Sweats: No Perspiration Orientation: 3-Disoriented Date>2 days Tacttile Disturbances: 0-None Auditory Disturbances: 0-None Visual Disturbances: 0-None Headache: 0-None Present CIWA-Ar Total Score: 6 BHS Progress Note (SOAP) Subjective: bgm between 83-205 patient is doing well in eating able to tolerate food and fluid 90% of breakfast with glucerna bid change to tid ac and hs Objective: 07/08/18 11:14 Vital Signs Temperature 98.4 F 07/08/18 09:11 Pulse Rate 77 07/08/18 09:11 Respiratory Rate 18 07/08/18 09:11 Blood Pressure 148/94 07/08/18 09:11 O2 Sat by Pulse Oximetry (%) Laboratory Last Values POC Glucometer 127 UNITS (80-120) 07/08/18 09:26 Urine Color Yellow 07/06/18 22:02 Urine Appearance Clear 07/06/18 22:02 Urine pH 5.5 (5.0-8.0) 07/06/18 22:02 Ur Specific [place] 1.017 (1.010-1.035) 07/06/18 22:02 Urine Protein 2+ (NEGATIVE) H 07/06/18 22:02 Urine Glucose (UA) Negative (NEGATIVE) 07/06/18 22:02 Urine Ketones Negative (NEGATIVE) 07/06/18 22:02 Urine Blood Negative (NEGATIVE) 07/06/18 22:02 Urine Nitrite Negative (NEGATIVE) 07/06/18 22:02 Urine Bilirubin Negative (NEGATIVE) 07/06/18 22:02 Urine Urobilinogen 1.0 mg/dL (0.2-1.0) 07/06/18 22:02 Ur Leukocyte Esterase Negative (NEGATIVE) 07/06/18 22:02 Urine WBC (Auto) 1 /hpf (0-5) 07/06/18 22:02 Urine RBC (Auto) 0 /hpf (0-4) 07/06/18 22:02 Urine Casts (Auto) 3 /hpf (0-8) 07/06/18 22:02 U Epithel Cells (Auto) 2.2 /HPF (0-5) 07/06/18 22:02 Urine Bacteria (Auto) 1.7 /hpf (NEGATIVE) 07/06/18 22:02 lab noted see ER lab 07/08/18 11:19 07/08/18 11:20 ihr elevation discontinue motrin Assessment: 07/08/18 11:20 withdrawal sx hypertension pencretitis Plan: continue detox
[2018-07-08] MEDS ORDERED: BUDESONIDE/FORMETEROL FUMARATE 160/4.5 mcg INHALER IH SCH (11:30)
[2018-07-08] MEDS: BUDESONIDE/FORMETEROL FUMARATE 160/4.5 mcg INHALER IH SCH (22:18)
[2018-07-08] MEDS: HYDROCHLOROTHIAZIDE 25 MG TABLET (FP) PO SCH (22:19)
[2018-07-08] MEDS: THIAMINE HCL 100 MG TABLET (FP) PO SCH (22:19)
[2018-07-08] MEDS: LORazepam 0.5 MG TABLET PO SCH (22:49)
[2018-07-09] MEDS: LORazepam 0.5 MG TABLET PO PRN (03:25)
[2018-07-09] MEDS ORDERED: METHADONE HCL 10 MG TABLET ONE (04:36)
[2018-07-09] MEDS ORDERED: METHADONE HCL 40 MG DISPERSABLE TABLET ONE (04:36)
[2018-07-09] MEDS: METHADONE 40 MG, METHADONE 20 MG PO SCH (05:00)
[2018-07-09] MEDS: LORazepam 0.5 MG TABLET PO SCH ×4 (05:01→22:02)
[2018-07-09] MEDS: LIPASE/PROTEASE/AMYLASE 6,000 UNIT CAPSULE PO SCH ×3 (07:48→17:54)
[2018-07-09] MEDS: DEXTROSE 5%-0.45% SALINE 1,000 ML IV SCH (07:48)
[2018-07-09] MEDS: PRENATAL VITAMINS W/ FOLIC ACID TABLET (FP) PO SCH (10:25)
[2018-07-09] MEDS: amLODIPine BESYLATE 10 MG TABLET (FP) PO SCH (10:25)
[2018-07-09] MEDS: TAMSULOSIN HCL 0.4 MG CAP PO SCH (10:25)
[2018-07-09] MEDS: NICOTINE 21 MG/24 HOURS TOPICAL PATCH TD SCH (10:25)
[2018-07-09] MEDS: HYDROCHLOROTHIAZIDE 25 MG TABLET (FP) PO SCH ×2 (10:25→21:49)
[2018-07-09] MEDS: QUEtiapine FUMARATE 200 MG TABLET PO SCH ×2 (10:25→21:49)
[2018-07-09] MEDS: BUDESONIDE/FORMETEROL FUMARATE 160/4.5 mcg INHALER IH SCH ×2 (10:26→21:52)
[2018-07-09] MEDS: RANITIDINE HCL 150 MG TABLET (FP) PO SCH ×2 (10:26→21:49)
--- NOTE | 2018-07-09 17:43 | PN ---
[facility] Progress Note (SOAP) Subjective: Fatigue. Objective: PATIENT A & O X 3. IN NO ACUTE DISTRESS. 07/09/18 17:38 Vital Signs Temperature 98.4 F 07/09/18 13:00 Pulse Rate 80 07/09/18 13:00 Respiratory Rate 18 07/09/18 13:00 Blood Pressure 164/104 H 07/09/18 13:00 O2 Sat by Pulse Oximetry (%) Laboratory Tests 07/06/18 07/07/18 07/07/18 22:02 00:43 01:23 POC Glucometer 59 161 Urine Color Yellow Urine Appearance Clear Urine pH 5.5 Ur Specific [place] 1.017 Urine Protein 2+ H Urine Glucose (UA) Negative Urine Ketones Negative Urine Blood Negative Urine Nitrite Negative Urine Bilirubin Negative Urine Urobilinogen 1.0 Ur Leukocyte Esterase Negative Urine WBC (Auto) 1 Urine RBC (Auto) 0 Urine Casts (Auto) 3 U Epithel Cells (Auto) 2.2 Urine Bacteria (Auto) 1.7 07/07/18 07/07/18 07/07/18 06:50 06:54 07:30 POC Glucometer 31 38 142 Urine Color Urine Appearance Urine pH Ur Specific [place] Urine Protein Urine Glucose (UA) Urine Ketones Urine Blood Urine Nitrite Urine Bilirubin Urine Urobilinogen Ur Leukocyte Esterase Urine WBC (Auto) Urine RBC (Auto) Urine Casts (Auto) U Epithel Cells (Auto) Urine Bacteria (Auto) 07/07/18 07/07/18 07/07/18 16:51 17:15 18:43 POC Glucometer 29 89 61 Urine Color Urine Appearance Urine pH Ur Specific [place] Urine Protein Urine Glucose (UA) Urine Ketones Urine Blood Urine Nitrite Urine Bilirubin Urine Urobilinogen Ur Leukocyte Esterase Urine WBC (Auto) Urine RBC (Auto) Urine Casts (Auto) U Epithel Cells (Auto) Urine Bacteria (Auto) 07/07/18 07/07/18 07/07/18 20:01 21:05 21:59 POC Glucometer 84 75 119 Urine Color Urine Appearance Urine pH Ur Specific [place] Urine Protein Urine Glucose (UA) Urine Ketones Urine Blood Urine Nitrite Urine Bilirubin Urine Urobilinogen Ur Leukocyte Esterase Urine WBC (Auto) Urine RBC (Auto) Urine Casts (Auto) U Epithel Cells (Auto) Urine Bacteria (Auto) 07/07/18 07/08/18 07/08/18 23:25 00:41 02:14 POC Glucometer 100 83 81 Urine Color Urine Appearance Urine pH Ur Specific [place] Urine Protein Urine Glucose (UA) Urine Ketones Urine Blood Urine Nitrite Urine Bilirubin Urine Urobilinogen Ur Leukocyte Esterase Urine WBC (Auto) Urine RBC (Auto) Urine Casts (Auto) U Epithel Cells (Auto) Urine Bacteria (Auto) 07/08/18 07/08/18 07/08/18 07:11 09:26 11:41 POC Glucometer 205 127 244 Urine Color Urine Appearance Urine pH Ur Specific [place] Urine Protein Urine Glucose (UA) Urine Ketones Urine Blood Urine Nitrite Urine Bilirubin Urine Urobilinogen Ur Leukocyte Esterase Urine WBC (Auto) Urine RBC (Auto) Urine Casts (Auto) U Epithel Cells (Auto) Urine Bacteria (Auto) 07/08/18 07/08/18 07/09/18 16:35 21:47 05:03 POC Glucometer 212 355 158 Urine Color Urine Appearance Urine pH Ur Specific [place] Urine Protein Urine Glucose (UA) Urine Ketones Urine Blood Urine Nitrite Urine Bilirubin Urine Urobilinogen Ur Leukocyte Esterase Urine WBC (Auto) Urine RBC (Auto) Urine Casts (Auto) U Epithel Cells (Auto) Urine Bacteria (Auto) 07/09/18 07/09/18 11:45 16:51 POC Glucometer 246 242 Urine Color Urine Appearance Urine pH Ur Specific [place] Urine Protein Urine Glucose (UA) Urine Ketones Urine Blood Urine Nitrite Urine Bilirubin Urine Urobilinogen Ur Leukocyte Esterase Urine WBC (Auto) Urine RBC (Auto) Urine Casts (Auto) U Epithel Cells (Auto) Urine Bacteria (Auto) LABS NOTED. Assessment: 07/09/18 17:38 WITHDRAWAL SYMPTOMS. ELEVATED BP (PATIENT IS CURRENTLY PRESCRIBED AMLODIPINE AND HCTZ) FOR TREATMENT OF HTN. HYPERAMMONEMIA. ELEVATED LIVER ENZYMES. ANEMIA. HYPERGLYCEMIA. 07/09/18 17:39 Plan: CONTINUE DETOX. INCREASE DAILY PO FLUID INTAKE. LACTULOSE NOT ORDERED DUE TO CONCERN FOR PATIENT SAFETY (PATIENT APPEARS SOMEWHAT WEAK AND LETHARGIC). AMMONIA LEVEL ONLY MILDLY ELEVATED. PATIENT SCHEDULED FOR D/C TOMORROW, PENDING EVALUATION BY COVERING MEDICAL PROVIDER AT TIME.
[2018-07-09] MEDS: THIAMINE HCL 100 MG TABLET (FP) PO SCH (21:49)
[2018-07-09] MEDS: MELATONIN 5 MG TABLETS PO PRN (21:50)
[2018-07-10] MEDS ORDERED: METHADONE HCL 40 MG DISPERSABLE TABLET ONE (04:18)
[2018-07-10] MEDS ORDERED: METHADONE HCL 10 MG TABLET ONE (04:18)
[2018-07-10] MEDS: METHADONE 40 MG, METHADONE 20 MG PO SCH (05:37)
[2018-07-10] MEDS: TAMSULOSIN HCL 0.4 MG CAP PO SCH (07:47)
[2018-07-10] MEDS: LIPASE/PROTEASE/AMYLASE 6,000 UNIT CAPSULE PO SCH ×3 (07:47→17:15)
[2018-07-10] MEDS: RANITIDINE HCL 150 MG TABLET (FP) PO SCH (10:23)
[2018-07-10] MEDS: HYDROCHLOROTHIAZIDE 25 MG TABLET (FP) PO SCH (10:23)
[2018-07-10] MEDS: amLODIPine BESYLATE 10 MG TABLET (FP) PO SCH (10:23)
[2018-07-10] MEDS: PRENATAL VITAMINS W/ FOLIC ACID TABLET (FP) PO SCH (10:23)
[2018-07-10] MEDS: BUDESONIDE/FORMETEROL FUMARATE 160/4.5 mcg INHALER IH SCH (10:24)
[2018-07-10] MEDS: QUEtiapine FUMARATE 200 MG TABLET PO SCH (10:24)
[2018-07-10] MEDS: DEXTROSE 5%-0.45% SALINE 1,000 ML IV SCH (10:24)
[2018-07-10] MEDS: NICOTINE 21 MG/24 HOURS TOPICAL PATCH TD SCH (10:24)
--- NOTE | 2018-07-10 15:32 | DS ---
[facility] Detox Discharge Summary Admission Date: 07/06/18 Discharge Date: 07/10/18 - History Additional Comments: Pt being discharged due to completion of detox. Pt is A & O x 3, has been ambulating on unit in no acute distress and conversing comfortably and completing with staff. Pt will continue aftercare at [facility]. - Physical Exam Results Vital Signs: Vital Signs Temperature 96.9 F L 07/10/18 14:01 Pulse Rate 103 H 07/10/18 14:01 Respiratory Rate 18 07/10/18 14:01 Blood Pressure 128/90 07/10/18 14:01 O2 Sat by Pulse Oximetry (%) - Treatment Hospital Course: Detox Protocol Followed, Detoxed Safely, Responded well, Discharged Condition Good, Rehab Referral Accepted Patient has Accepted a Rehab Referral to: [facility] - Medication Discharge Medications: Ambulatory Orders Famotidine 20 mg PO BID #60 tab 09/23/16 Tiotropium [place] [Spiriva] 1 puff IH DAILY 30 Days #30 cap 09/10/17 Albuterol Sulfate Inhaler - [Ventolin HFA Inhaler -] 2 inh IH Q4H PRN #1 inh 11/28 Amlodipine Besylate [Norvasc -] 10 mg PO DAILY #14 tablet 01/18/18 Aspirin [Aspirin EC] 81 mg PO DAILY #14 tablet.dr 01/18/18 Atorvastatin Ca [Lipitor] 20 mg PO HS #14 tablet 01/18/18 Budesonide/Formeterol Fumarate [SYMBICORT 160/4.5mcg -] 1 inh PO BID #1 inh 11/28 Ferrous Sulfate [Feosol] 325 mg PO DAILY #30 ud 01/18/18 Hydrochlorothiazide 25 mg PO BID #14 tab 01/18/18 Insulin Glargine,Hum.rec.anlog [Lantus] 15 unit SQ HS #1 vial 01/18/18 Losartan Potassium [Cozaar -] 50 mg PO BID #30 tab 01/18/18 Pantoprazole Sodium [Protonix -] 40 mg PO DAILY #14 tablet.ec 01/18/18 Quetiapine Fumarate [Seroquel -] 200 mg PO HS #30 tablet 01/18/18 Sitagliptin Phosphate [Januvia -] 25 mg PO DAILY@0700 #14 tab 01/18/18 Tamsulosin HCl [Flomax -] 0.4 mg PO DAILY@0830 #14 cap.er.24h 01/18/18 Methadone [Dolophine -] 60 mg PO DAILY@0600 05/03/18 Budesonide/Formeterol Fumarate [SYMBICORT 80/4.5mcg -] 2 inh PO BID 07/08/18 Lipase/Protease/Amylase [Erich Camejo 6,000 Units Capsule] 2 cap PO TIDCM 07/08/18 - AMA Did Patient Leave Against Medical Advice: No
--- NOTE | 2018-07-10 15:41 | HP ---
C[facility]ARY Rehab Assess/Revision - Admission History Admitted to Rehab [facility]: [facility] - Vital signs Vital Signs: Vital Signs Period Temp Pulse Resp BP Sys/Lopez Pulse Ox Last 24 Hr 96.9 F-98.5 F 78-103 16-18 128-152/90-98 - Findings Detox History & Physical reviewed: Yes Concur with findings: Yes Inpatient Rehab Admission - Rehab Decision to Admit Inpatient rehab admission?: Yes - Initial Determination Are CD services needed?: Yes Free of communicable disease: Yes Not in need of hospitalization: Yes - Rehab Admission Criteria Previous failed treatment: Yes Poor recovery environment: Yes Comorbidities: Yes Lacks judgement: Yes Patient is meeting Inpatient Rehab admission criteria:: Yes
[2018-07-10 18:33] VITALS: BP 125/88; PULSE 95; TEMP 98.2
== END 2018-07-10 18:30 | disposition other institution (70) | DRG 773 ==
LOC: YASAS 15:47 → Y3N 21:44
PROVIDERS: ADMIT Surgery; ATTEND Surgery
PROC: HZ2ZZZZ Detoxification Services for Substance Abuse Treatment (ICD-10-PCS; principal; 2018-07-06)
DX: F10.230 Alcohol dependence with withdrawal, uncomplicated (principal); F13.230 Sedative, hypnotic or anxiolytic dependence with withdrawal, uncomplicated; F11.20 Opioid dependence, uncomplicated; F17.213 Nicotine dependence, cigarettes, with withdrawal; F32.9 Major depressive disorder, single episode, unspecified; I10 Essential (primary) hypertension; E11.9 Type 2 diabetes mellitus without complications; Z79.84 Long term (current) use of oral hypoglycemic drugs; E72.20 Disorder of urea cycle metabolism, unspecified; D64.9 Anemia, unspecified; J44.9 Chronic obstructive pulmonary disease, unspecified; K70.10 Alcoholic hepatitis without ascites; N40.0 Benign prostatic hyperplasia without lower urinary tract symptoms; K21.9 Gastro-esophageal reflux disease without esophagitis; Z87.19 Personal history of other diseases of the digestive system
CPT/HCPCS: 81003; 82962

== ENCOUNTER 2018-07-07 08:01 | Emergency (ER) | payer OTHER ==
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
[2018-07-07 08:38] VITALS: BMI 23.0
[2018-07-07 09:04] LABS: VENOUS PC02 48.8 mmHg (41-51); VENOUS PH 7.32 (7.31-7.41); VENOUS PO2 48.1 mmHg (30-40)
[2018-07-07 09:11] LABS: EOS % 0.2 % (0-4.5); HEMATOCRIT 29.6 % (35.4-49); HEMOGLOBIN 10.3 GM/dL (11.7-16.9); LYMPH % 25.3 % (8-40); MCH 35.4 pg (25.7-33.7); MCHC 34.6 g/dl (32.0-35.9); MEAN CELL VOLUME 102.3 fl (80-96); MEAN PLT VOLUME 8.1 fl (7.5-11.1); MONO % 5.6 % (3.8-10.2); NEUT % 67.9 % (42.8-82.8); PLATELET COUNT 237 K/MM3 (134-434); RDW 17.7 % (11.9-15.9); WHITE BLOOD COUNT 5.3 K/mm3 (4.0-10.0)
[2018-07-07 09:22] LABS: INR 1.4 (0.83-1.09); PROTHROMBIN TIME (PATIENT) 16.6 SEC (9.7-13.0)
[2018-07-07 09:25] LABS: ACTIVATED PTT 37.2 SECONDS (25.2-36.5)
[2018-07-07 09:39] LABS: ALBUMIN 3.7 g/dl (3.4-5.0); ALK PHOS 211 U/L (45-117); ANION GAP 8 MMOL/L (8-16); BILIRUBIN,TOTAL 0.5 mg/dL (0.2-1); BLOOD UREA NITROGEN 29 mg/dL (7-18); CALCIUM 8.1 mg/dL (8.5-10.1); CHLORIDE 108 mmol/L (98-107); CO2 25 mmol/L (21-32); CREATININE 1.5 mg/dL (0.55-1.3); MAGNESIUM 2.2 mg/dL (1.8-2.4); SGOT/AST 169 U/L (15-37); SGPT/ALT 86 U/L (13-61); SODIUM 140 mmol/L (136-145); TOT PROT 7.3 g/dl (6.4-8.2)
[2018-07-07 09:44] LABS: GLUCOSE,RANDOM 301 mg/dL (74-106)
--- NOTE | 2018-07-07 10:39 | EKG ---
Test Reason : Blood Pressure : / mmHG Vent. Rate : 074 BPM Atrial Rate : 074 BPM P-R Int : 164 ms QRS Dur : 078 ms QT Int : 434 ms P-R-T Axes : 010 042 058 degrees QTc Int : 481 ms NORMAL SINUS RHYTHM MINIMAL VOLTAGE CRITERIA FOR LVH, MAY BE NORMAL VARIANT PROLONGED QT ABNORMAL ECG WHEN COMPARED WITH ECG OF 01-JAN-2018 21:21, NO SIGNIFICANT CHANGE WAS FOUND Confirmed by THEODORE GARY, PAULETTE ([id number]) on 07/07/2018 10:39:29 AM Referred By: Confirmed By:PAULETTE JAIMES MD
[2018-07-07 11:04] LABS: PH,URINE 5.5 (5.0-8.0); URINE APPEARANCE CLEAR; URINE BILIRUBIN NEGATIVE (NEGATIVE); URINE COLOR YELLOW; URINE GLUCOSE (UA) 2+ (NEGATIVE); URINE KETONE NEGATIVE (NEGATIVE); URINE LEUK ESTERASE NEGATIVE (NEGATIVE); URINE NITRITE NEGATIVE (NEGATIVE); URINE PROTEIN TRACE (NEGATIVE); URINE UROBILINOGEN 0.2 mg/dL (0.2-1.0)
[2018-07-07 11:19] LABS: COCAINE, UR NEGATIVE ng/ml (CUTOFF=300); OPIATES, URI NEGATIVE ng/ml (CUTOFF=300); PHENCYCLIDINE,URINE NEGATIVE ng/ml (CUTOFF=25); URINE AMPHETAMINES NEGATIVE ng/ml (CUTOFF=500); URINE BARBITURATES NEGATIVE ng/ml (CUTOFF=200)
[2018-07-07 11:33] LABS: METHADONE, UR POSITIVE ng/ml (CUTOFF=300); URINE BENZODIAZEPINES POSITIVE ng/ml (CUTOFF=200)
[2018-07-07 12:43] VITALS: BP 143/98; PULSE 113; TEMP 98.6
== END 2018-07-07 13:45 | disposition home or self-care (01) ==
LOC: JER 08:01
DX: E11.65 Type 2 diabetes mellitus with hyperglycemia (principal); F10.29 Alcohol dependence with unspecified alcohol-induced disorder; R41.82 Altered mental status, unspecified; F10.20 Alcohol dependence, uncomplicated; Z79.4 Long term (current) use of insulin; F17.210 Nicotine dependence, cigarettes, uncomplicated; I10 Essential (primary) hypertension; E78.00 Pure hypercholesterolemia, unspecified
CPT/HCPCS: 36415; 70450-TC; 71045-TC-FY; 80053; 80307; 81003; 82140; 82550; 82803; 82962; 83605; 83735; 84484; 85025; 85610; 85730; 87040; 87086; 93005; 93010; 99285-25

== ENCOUNTER 2018-07-10 19:01 | Inpatient (IN) | payer OTHER ==
[2018-07-10] MEDS ORDERED: P-EPHED 60MG/TRIPROLIDI 2.5MG TABLET PO PRN (19:34)
[2018-07-10] MEDS ORDERED: ACETAMINOPHEN 325 MG TABLET (FP) PO PRN (19:34)
[2018-07-10] MEDS ORDERED: hydrOXYzine PAMOATE 25 MG CAPSULE (FP) PO PRN (19:34)
[2018-07-10] MEDS ORDERED: MAGNESIUM HYDROX 2400MG/30ML ORAL SUSPENSION 30 ML CUP PO PRN (19:34)
[2018-07-10] MEDS ORDERED: MAG HYDROX/AL HYDROX/SIMETH 30 ML UNIT-DOSE CUP PO PRN (19:34)
[2018-07-10] MEDS ORDERED: MENTHOL/PHENOL 1 EACH UD MM PRN (19:34)
[2018-07-10] MEDS ORDERED: LOPERAMIDE HCL 2 MG CAPSULE PO PRN (19:34)
[2018-07-10] MEDS ORDERED: MAGNESIUM CITRATE 300 ML BOTTLE PO PRN (19:34)
--- NOTE | 2018-07-10 19:34 | HP ---
CANDACE GARY Rehab Assess/Revision - Admission History Admitted to Rehab from: [facility] Date of Admission to Rehab: 07/10/18 - Findings Detox History & Physical reviewed: Yes Concur with findings: Yes Comments/Additional Findings: for rehab as protocol Inpatient Rehab Admission - Rehab Decision to Admit Inpatient rehab admission?: Yes - Initial Determination Are CD services needed?: Yes Free of communicable disease: Yes Not in need of hospitalization: Yes - Rehab Admission Criteria Previous failed treatment: Yes Poor recovery environment: Yes Comorbidities: Yes Lacks judgement: No Patient is meeting Inpatient Rehab admission criteria:: Yes
[2018-07-10] MEDS ORDERED: ALBUTEROL SO4 8 GM HFA INHALER IH PRN (19:36)
[2018-07-10] MEDS: BUDESONIDE/FORMETEROL FUMARATE 160/4.5 mcg INHALER IH SCH (21:21)
[2018-07-10] MEDS: MELATONIN 5 MG TABLETS PO PRN (21:22)
[2018-07-10] MEDS: RANITIDINE HCL 150 MG TABLET (FP) PO SCH (21:22)
[2018-07-10] MEDS: THIAMINE HCL 100 MG TABLET (FP) PO SCH (21:22)
[2018-07-10] MEDS ORDERED: QUEtiapine FUMARATE 200 MG TABLET PO ONE (21:29)
[2018-07-11] MEDS ORDERED: METHADONE HCL 40 MG DISPERSABLE TABLET ONE (04:19)
[2018-07-11] MEDS ORDERED: METHADONE HCL 10 MG TABLET ONE (04:19)
[2018-07-11] MEDS ORDERED: METHADONE HCL 10 MG TABLET PO SCH (06:00)
[2018-07-11] MEDS: METHADONE 40 MG, METHADONE 20 MG PO SCH (06:00)
[2018-07-11] MEDS: IBUPROFEN 400 MG TABLET (FP) PO PRN ×3 (06:03→21:19)
[2018-07-11] MEDS: TAMSULOSIN HCL 0.4 MG CAP PO SCH (07:52)
[2018-07-11] MEDS: LIPASE/PROTEASE/AMYLASE 6,000 UNIT CAPSULE PO SCH ×3 (07:52→16:59)
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
[2018-07-11] MEDS: PRENATAL VITAMINS W/ FOLIC ACID TABLET (FP) PO SCH (10:25)
[2018-07-11] MEDS: RANITIDINE HCL 150 MG TABLET (FP) PO SCH ×2 (10:25→21:19)
[2018-07-11] MEDS: HYDROCHLOROTHIAZIDE 12.5 MG CAPSULE (FP) PO SCH (10:25)
[2018-07-11] MEDS: amLODIPine BESYLATE 10 MG TABLET (FP) PO SCH (10:25)
[2018-07-11] MEDS: BUDESONIDE/FORMETEROL FUMARATE 160/4.5 mcg INHALER IH SCH ×2 (10:25→21:18)
[2018-07-11] MEDS: NICOTINE 21 MG/24 HOURS TOPICAL PATCH TD SCH (13:00)
[2018-07-11] MEDS ORDERED: PT OWN MED DRAWER 7, Y5N ONE ×2 (16:30→19:29)
[2018-07-11] MEDS: THIAMINE HCL 100 MG TABLET (FP) PO SCH (21:18)
[2018-07-11] MEDS: MELATONIN 5 MG TABLETS PO PRN (21:20)
[2018-07-11] MEDS ORDERED: QUEtiapine FUMARATE 100 MG TABLET (FP) PO SCH (22:00)
[2018-07-11] MEDS ORDERED: QUEtiapine FUMARATE 200 MG TABLET PO SCH (22:00)
[2018-07-12] MEDS ORDERED: METHADONE HCL 40 MG DISPERSABLE TABLET ONE (03:10)
[2018-07-12] MEDS ORDERED: METHADONE HCL 10 MG TABLET ONE (03:10)
[2018-07-12] MEDS ORDERED: PT OWN MED DRAWER 7, Y5N ONE ×2 (03:12→12:20)
[2018-07-12] MEDS: METHADONE 40 MG, METHADONE 20 MG PO SCH (06:09)
[2018-07-12] MEDS: IBUPROFEN 400 MG TABLET (FP) PO PRN ×2 (06:11→21:12)
[2018-07-12] MEDS: TAMSULOSIN HCL 0.4 MG CAP PO SCH (08:03)
[2018-07-12] MEDS: LIPASE/PROTEASE/AMYLASE 6,000 UNIT CAPSULE PO SCH ×3 (08:03→17:10)
[2018-07-12] MEDS: HYDROCHLOROTHIAZIDE 12.5 MG CAPSULE (FP) PO SCH (09:28)
[2018-07-12] MEDS: PRENATAL VITAMINS W/ FOLIC ACID TABLET (FP) PO SCH (09:28)
[2018-07-12] MEDS: BUDESONIDE/FORMETEROL FUMARATE 160/4.5 mcg INHALER IH SCH ×2 (09:28→21:10)
[2018-07-12] MEDS: NICOTINE 21 MG/24 HOURS TOPICAL PATCH TD SCH (09:28)
[2018-07-12] MEDS: RANITIDINE HCL 150 MG TABLET (FP) PO SCH ×2 (09:28→21:11)
[2018-07-12] MEDS: amLODIPine BESYLATE 10 MG TABLET (FP) PO SCH (09:28)
--- NOTE | 2018-07-12 10:09 | PN ---
[facility] Progress Note Note: PATIENT SEEN FOR REQUEST TO CHANGE NCS DIET RESTRICTION DUE TO EPISODE OF HYPOGLYCEMIA WITH BS DECREASING TO 31. PATIENT ALSO STATES PSYCHIATRIST ORDERED SEROQUEL 200MG HS WHEN HE TAKES IT BID. PATIENT REPORTS HAVING MEDICATION IN PROPERTY AND WOULD LIKE TO RETRIEVE MEDICATION FOR REVIEW. PATIENT DENIES NERVOUSNESS, SWEATING AND DIZZINESS AT THIS TIME. Laboratory Tests 07/11/18 07/11/18 07/12/18 05:59 16:57 06:08 POC Glucometer 251 202 299 Vital Signs Temperature 97.3 F L 07/12/18 06:00 Pulse Rate 84 07/12/18 09:30 Respiratory Rate 18 07/12/18 09:30 Blood Pressure 121/93 07/12/18 09:30 O2 Sat by Pulse Oximetry (%) PE: ALERT AND ORIENTED X 3 SKIN WARM AND DRY +PERRLA, EOMS INTACT BL EXT FULL ROM, NO TREMORS VISIBLE AMB AD VENUS A/P: DM HX OF HYPOGLYCEMIA PATIENT EXPLAINED RISK FACTORS OF HYPERGLYCEMIA WITH REMOVING DIET RESTRICTION BUT STATES FOOD DOES NOT TASTE GOOD AND WOULD LIKE IT REMOVED. PATIENT EDUCATED NOT TO ADD TABLE SUGAR TO FOOD/DRINKS AND TO AVOID JUICE/SODA/CANDY. WILL CHANGE DIET TO REGINA ONLY ENCOURAGE ORAL FLUIDS ALSO EDUCATED SIDE EFFECT OF HYPERGLYCEMIA WITH SEROQUEL CONTINUE TO MONITOR BGM PSYCH CONSULT FOR SEROQUEL DOSE ADJUSTMENT MONITOR CLINICALLY
--- NOTE | 2018-07-12 11:15 | PN ---
Psychiatric Progress Note Vital Signs: Vital Signs Period Temp Pulse Resp BP Sys/Lopez Pulse Ox Last 24 Hr 97.3 F 84-99 16-18 115-121/85-93 Date of Session: 07/12/18 Chief Complaint:: Follow up HPI: Patient with history of Bipolar Disorder and alcohol use was admitted to this unit on 07/10/18 for inpatient detoxification ROS: Anemia, COPD, HTN, HLD, DM, Neuropathy, Pancreatitis, Gallstones, BPH, Alcoholic hepatitis Current Medications: Active Medications Generic Name Dose Route Start Last Admin Trade Name Freq PRN Reason Stop Dose Admin Acetaminophen 650 mg 07/10/18 19:34 Tylenol - PO Q4H PRN FEVER Al Hydroxide/Mg Hydroxide 30 ml 07/10/18 19:34 Mylanta Oral Suspension - PO Q6H PRN DYSPEPSIA Albuterol Sulfate 2 puff 07/10/18 19:36 Ventolin Hfa Inhaler - IH Q4H PRN SHORT OF BREATH/WHEEZING Amlodipine Besylate 10 mg 07/11/18 10:00 07/12/18 09:28 Norvasc - PO 10 mg DAILY REBECCA Administration Budesonide/Formoterol Fumarate 2 puff 07/10/18 22:00 07/12/18 09:28 Symbicort 160/4.5mcg - IH 2 puff BID REBECCA Administration Eucalyptus/Menthol/Phenol/Sorbitol 1 each 07/10/18 19:34 Cepastat Lozenge - MM Q4H PRN SORE THROAT Guaifenesin 10 ml 07/10/18 19:34 Robitussin - PO Q6H PRN COUGH Hydrochlorothiazide 12.5 mg 07/11/18 10:00 07/12/18 09:28 Hctz - PO 12.5 mg DAILY REBECCA Administration Hydroxyzine Pamoate 25 mg 07/10/18 19:34 Vistaril - PO Q4H PRN AGITATION Ibuprofen 400 mg 07/10/18 19:34 07/12/18 06:11 Motrin - PO 400 mg Q6H PRN Administration Pain Level 4-6 Loperamide HCl 4 mg 07/10/18 19:34 Imodium - PO Q6H PRN DIARRHEA Magnesium Citrate 300 ml 07/10/18 19:34 Citroma - PO Q48H PRN CONSTIPATION Magnesium Hydroxide 30 ml 07/10/18 19:34 Milk Of Magnesia - PO DAILY PRN CONSTIPATION Melatonin 5 mg 07/10/18 22:00 07/11/18 21:20 Melatonin PO 5 mg HS PRN Administration INSOMNIA Methadone HCl 40 mg/ Methadone 60 mg 07/11/18 06:00 07/12/18 06:09 HCl 20 mg PO 60 mg DAILY@0600 REBECCA Administration Nicotine 21 mg 07/11/18 11:00 07/12/18 09:28 Nicoderm Patch - TD 21 mg DAILY REBECCA Administration Nicotine Polacrilex 2 mg 07/11/18 10:53 Nicorette Gum - BC Q2H PRN NICOTINE REPLACEMENT RX Pancrelipase 2 cap 07/11/18 08:00 07/12/18 08:03 Erich Camejo 6,000 Units Capsule PO 2 cap TIDCM REBECCA Administration Multivit/Folic Acid/Iron 1 tab 07/11/18 10:00 07/12/18 09:28 Vitamins (Sjr) - PO 1 tab DAILY REBECCA Administration Pseudoephedrine/Triprolidine 1 combo 07/10/18 19:34 Actifed - PO TID PRN NASAL CONGESTION Quetiapine Fumarate 200 mg 07/11/18 22:00 07/11/18 21:19 Seroquel - PO 200 mg HS REBECCA Administration Quetiapine Fumarate 200 mg 07/12/18 11:15 Seroquel - PO BID REBECCA Ranitidine HCl 150 mg 07/10/18 22:00 07/12/18 09:28 Zantac - PO 150 mg BID REBECCA Administration Tamsulosin HCl 0.4 mg 07/11/18 08:30 07/12/18 08:03 Flomax - PO 0.4 mg DAILY@0830 REBECCA Administration Thiamine HCl 100 mg 07/10/18 22:00 07/11/18 21:18 Vitamin B1 - PO 100 mg HS REBECCA Administration Current Side Effect: No Lab tests ordered: Yes Lab tests reviewed: Yes Provider note:: Patient requests to have Seroquel ordered 200 mg po BID as he was prescribed by his psychiatrist. He told automobile service writer that while in detox in this facility from 07/06/18 to 07/10/18 he was getting Seroquel 200 mg po BID. He said that he saw the psychiatrist here yesterday that he told him that it was too late to get the morning dose that day but will get it it today. As it was not given to him this morning at 10am, he requested to see automobile service writer. External medication search shows script for 30 days supply of Seroquel 200mg/daily filled on 06/29/18. Seroquel 200 mg po BID will ordered for patient Total face to face time:: 15 Mental Status Exam - Mental Status Exam Alert and Oriented to: Time, Place, Person Cognitive Function: Fair Patient Appearance: Well Groomed Mood: Hopeful, Euthymic Affect: Appropriate Patient Behavior: Cooperative Speech Pattern: Clear Voice Loudness: Normal Thought Process: Intact, Goal Oriented Thought Disorder: Not Present Hallucinations: Denies Suicidal Ideation: Denies Homicidal Ideation: Denies Insight/Judgement: Fair Sleep: Poorly Appetite: Good Muscle strength/Tone: Normal Gait/Station: Normal Psychiatric Treatment Plan - Problem List (1) Bipolar disorder Current Visit: No Comment: History. (2) Substance-induced sleep disorder Current Visit: No (3) Alcohol dependence Current Visit: No Qualifiers: Substance use status: unspecified alcohol-induced disorder Qualified Code(s ): F10.29 - Alcohol dependence with unspecified alcohol-induced disorder (4) Nicotine dependence Current Visit: No Qualifiers: Nicotine product type: cigarettes Substance use status: in withdrawal Qualified Code(s): F17.213 - Nicotine dependence, cigarettes, with withdrawal Comment: . (5) Opioid dependence on agonist therapy Current Visit: Yes (6) Anemia Current Visit: No Qualifiers: Anemia type: unspecified type Qualified Code(s): D64.9 - Anemia, unspecified (7) Asthma Current Visit: No (8) COPD (chronic obstructive pulmonary disease) Current Visit: No Qualifiers: COPD type: unspecified COPD Qualified Code(s): J44.9 - Chronic obstructive pulmonary disease, unspecified (9) DM2 (diabetes mellitus, type 2) Current Visit: No Qualifiers: Diabetes mellitus alf insulin use: without marine oil terminal superintendent use (10) GERD (gastroesophageal reflux disease) Current Visit: No Qualifiers: Esophagitis presence: without esophagitis Qualified Code(s): K21.9 - Gastro -esophageal reflux disease without esophagitis (11) Hypercholesteremia Current Visit: No (12) Hypertension Current Visit: No Qualifiers: Hypertension type: essential hypertension Qualified Code(s): I10 - Essential (primary) hypertension (13) History of pancreatitis Current Visit: No (14) BPH (benign prostatic hyperplasia) Current Visit: Yes (15) Alcoholic hepatitis Current Visit: No Initial treatment plan: 1) Discontinue Seroquel 200 mg po HS. 2) Resume Seroquel 200 mg po BID. 3) Continue inpatient rehabilitation
[2018-07-12] MEDS: QUEtiapine FUMARATE 200 MG TABLET PO SCH ×2 (12:21→21:11)
[2018-07-12] MEDS: THIAMINE HCL 100 MG TABLET (FP) PO SCH (21:10)
[2018-07-12] MEDS: MELATONIN 5 MG TABLETS PO PRN (21:12)
[2018-07-12] MEDS: guaiFENesin 200 MG/10 ML 10 ML UNIT-DOSE CUPS PO PRN (21:13)
[2018-07-13] MEDS ORDERED: METHADONE HCL 10 MG TABLET ONE (04:10)
[2018-07-13] MEDS ORDERED: METHADONE HCL 40 MG DISPERSABLE TABLET ONE (04:10)
[2018-07-13] MEDS: METHADONE 40 MG, METHADONE 20 MG PO SCH (06:05)
[2018-07-13] MEDS ORDERED: INSULIN SLIDING SCALE (NOVOLOG) 1 VIAL SQ SCH (07:00)
[2018-07-13] MEDS: LIPASE/PROTEASE/AMYLASE 6,000 UNIT CAPSULE PO SCH ×3 (07:15→16:49)
[2018-07-13] MEDS: TAMSULOSIN HCL 0.4 MG CAP PO SCH (07:30)
--- NOTE | 2018-07-13 09:30 | PN ---
S Progress Note (SOAP) Subjective: BGM have been elevated the past 3 days. Client does not know what oral anti- diabetic he is taking at home. Unable to confirm home meds. Objective: 07/13/18 09:27 Laboratory 07/11/18 07/11/18 07/12/18 05:59 16:57 06:08 POC Glucometer 251 UNITS UNITS 202 UNITS UNITS 299 UNITS UNITS (80-120) (80-120) (80-120) 07/12/18 07/13/18 17:04 06:07 POC Glucometer 381 UNITS UNITS 278 UNITS UNITS (80-120) (80-120) Assessment: 07/13/18 09:28 Diabetes, type 2, uncontrolled Plan: Insulin Sliding scale adjusted; continue to monitor.
[2018-07-13] MEDS: BUDESONIDE/FORMETEROL FUMARATE 160/4.5 mcg INHALER IH SCH ×2 (10:19→21:41)
[2018-07-13] MEDS: PRENATAL VITAMINS W/ FOLIC ACID TABLET (FP) PO SCH (10:19)
[2018-07-13] MEDS: RANITIDINE HCL 150 MG TABLET (FP) PO SCH ×2 (10:19→21:39)
[2018-07-13] MEDS: NICOTINE 21 MG/24 HOURS TOPICAL PATCH TD SCH (10:20)
[2018-07-13] MEDS: amLODIPine BESYLATE 10 MG TABLET (FP) PO SCH (10:20)
[2018-07-13] MEDS: HYDROCHLOROTHIAZIDE 12.5 MG CAPSULE (FP) PO SCH (10:20)
[2018-07-13] MEDS: QUEtiapine FUMARATE 200 MG TABLET PO SCH ×2 (10:20→21:39)
[2018-07-13] MEDS: IBUPROFEN 400 MG TABLET (FP) PO PRN ×2 (10:21→21:40)
[2018-07-13] MEDS: INSULIN SLIDING SCALE (NOVOLOG) 1 VIAL SQ SCH (16:50)
[2018-07-13] MEDS: THIAMINE HCL 100 MG TABLET (FP) PO SCH (21:38)
[2018-07-13] MEDS: MELATONIN 5 MG TABLETS PO PRN (21:39)
[2018-07-13] MEDS: guaiFENesin 200 MG/10 ML 10 ML UNIT-DOSE CUPS PO PRN (21:40)
[2018-07-13] MEDS ORDERED: PT OWN MED DRAWER 7, Y5N ONE (21:41)
[2018-07-14] MEDS ORDERED: METHADONE HCL 40 MG DISPERSABLE TABLET ONE (04:32)
[2018-07-14] MEDS ORDERED: METHADONE HCL 10 MG TABLET ONE (04:32)
[2018-07-14] MEDS: METHADONE 40 MG, METHADONE 20 MG PO SCH (05:40)
[2018-07-14] MEDS: IBUPROFEN 400 MG TABLET (FP) PO PRN ×2 (05:40→18:03)
[2018-07-14] MEDS ORDERED: INSULIN (NOVOLOG) ASPART 100 UNITS/ML 10ML VIAL ONE (07:26)
[2018-07-14] MEDS: LIPASE/PROTEASE/AMYLASE 6,000 UNIT CAPSULE PO SCH ×3 (07:37→16:33)
[2018-07-14] MEDS: TAMSULOSIN HCL 0.4 MG CAP PO SCH (07:38)
[2018-07-14] MEDS: INSULIN SLIDING SCALE (NOVOLOG) 1 VIAL SQ SCH ×2 (07:38→16:36)
[2018-07-14] MEDS: PRENATAL VITAMINS W/ FOLIC ACID TABLET (FP) PO SCH (10:24)
[2018-07-14] MEDS: RANITIDINE HCL 150 MG TABLET (FP) PO SCH ×2 (10:24→21:22)
[2018-07-14] MEDS: BUDESONIDE/FORMETEROL FUMARATE 160/4.5 mcg INHALER IH SCH ×2 (10:24→21:21)
[2018-07-14] MEDS: amLODIPine BESYLATE 10 MG TABLET (FP) PO SCH (10:24)
[2018-07-14] MEDS: QUEtiapine FUMARATE 200 MG TABLET PO SCH ×2 (10:24→21:22)
[2018-07-14] MEDS: NICOTINE 21 MG/24 HOURS TOPICAL PATCH TD SCH (10:25)
[2018-07-14] MEDS: HYDROCHLOROTHIAZIDE 12.5 MG CAPSULE (FP) PO SCH (10:25)
[2018-07-14] MEDS: MELATONIN 5 MG TABLETS PO PRN (21:21)
[2018-07-14] MEDS: THIAMINE HCL 100 MG TABLET (FP) PO SCH (21:21)
[2018-07-15] MEDS ORDERED: METHADONE HCL 40 MG DISPERSABLE TABLET ONE (06:00)
[2018-07-15] MEDS ORDERED: METHADONE HCL 10 MG TABLET ONE (06:00)
[2018-07-15] MEDS: METHADONE 40 MG, METHADONE 20 MG PO SCH (06:03)
[2018-07-15] MEDS: IBUPROFEN 400 MG TABLET (FP) PO PRN (06:05)
[2018-07-15] MEDS: INSULIN SLIDING SCALE (NOVOLOG) 1 VIAL SQ SCH ×2 (07:27→16:57)
[2018-07-15] MEDS: LIPASE/PROTEASE/AMYLASE 6,000 UNIT CAPSULE PO SCH ×3 (07:27→16:55)
[2018-07-15] MEDS: TAMSULOSIN HCL 0.4 MG CAP PO SCH (08:50)
[2018-07-15] MEDS: PRENATAL VITAMINS W/ FOLIC ACID TABLET (FP) PO SCH (10:01)
[2018-07-15] MEDS: QUEtiapine FUMARATE 200 MG TABLET PO SCH ×2 (10:01→22:01)
[2018-07-15] MEDS: RANITIDINE HCL 150 MG TABLET (FP) PO SCH ×2 (10:01→22:01)
[2018-07-15] MEDS: amLODIPine BESYLATE 10 MG TABLET (FP) PO SCH (10:01)
[2018-07-15] MEDS: BUDESONIDE/FORMETEROL FUMARATE 160/4.5 mcg INHALER IH SCH ×2 (10:02→22:00)
[2018-07-15] MEDS: HYDROCHLOROTHIAZIDE 12.5 MG CAPSULE (FP) PO SCH (10:02)
[2018-07-15] MEDS: NICOTINE 21 MG/24 HOURS TOPICAL PATCH TD SCH (10:03)
[2018-07-15] MEDS ORDERED: INSULIN (NOVOLOG) ASPART 100 UNITS/ML 10ML VIAL ONE ×2 (16:39→16:58)
[2018-07-15] MEDS: MELATONIN 5 MG TABLETS PO PRN (22:01)
[2018-07-15] MEDS: THIAMINE HCL 100 MG TABLET (FP) PO SCH (22:05)
[2018-07-15] MEDS: CYCLOBENZAPRINE HCL 10 MG TABLET (FP) PO SCH (22:32)
[2018-07-16] MEDS ORDERED: METHADONE HCL 10 MG TABLET ONE (04:09)
[2018-07-16] MEDS ORDERED: METHADONE HCL 40 MG DISPERSABLE TABLET ONE (04:09)
[2018-07-16] MEDS ORDERED: INSULIN (NOVOLOG) ASPART 100 UNITS/ML 10ML VIAL ONE ×3 (05:53→22:00)
[2018-07-16] MEDS: CYCLOBENZAPRINE HCL 10 MG TABLET (FP) PO SCH ×3 (05:54→21:08)
[2018-07-16] MEDS: IBUPROFEN 400 MG TABLET (FP) PO PRN (05:54)
[2018-07-16] MEDS: METHADONE 40 MG, METHADONE 20 MG PO SCH (05:54)
[2018-07-16] MEDS: LIPASE/PROTEASE/AMYLASE 6,000 UNIT CAPSULE PO SCH ×3 (07:22→16:47)
[2018-07-16] MEDS: INSULIN SLIDING SCALE (NOVOLOG) 1 VIAL SQ SCH ×2 (07:40→16:47)
[2018-07-16] MEDS: TAMSULOSIN HCL 0.4 MG CAP PO SCH (08:44)
[2018-07-16] MEDS: QUEtiapine FUMARATE 200 MG TABLET PO SCH ×2 (09:44→21:09)
[2018-07-16] MEDS: PRENATAL VITAMINS W/ FOLIC ACID TABLET (FP) PO SCH (09:44)
[2018-07-16] MEDS: HYDROCHLOROTHIAZIDE 12.5 MG CAPSULE (FP) PO SCH (09:44)
[2018-07-16] MEDS: RANITIDINE HCL 150 MG TABLET (FP) PO SCH ×2 (09:44→21:08)
[2018-07-16] MEDS: NICOTINE 21 MG/24 HOURS TOPICAL PATCH TD SCH (09:45)
[2018-07-16] MEDS: amLODIPine BESYLATE 10 MG TABLET (FP) PO SCH (09:45)
[2018-07-16] MEDS: BUDESONIDE/FORMETEROL FUMARATE 160/4.5 mcg INHALER IH SCH ×2 (09:46→21:08)
--- NOTE | 2018-07-16 10:12 | PN ---
S Progress Note Note: PATIENT C/O JOINT PAIN. REPORTS HAVING HX OF SCIATICA AND BACK PAIN. DENIES RECENT INJURIES. PE: ALERT AND ORIENTED X 3, SKIN WARM AND DRY, EXT FULL ROM, NO REDNESS OR SWELLING OF JOINTS. WILL INCREASE MOTRIN TO 600MG Q6H PRN AND CONTINUE TO MONITOR CLINICALLY. Vital Signs Temperature 97.9 F 07/16/18 06:47 Pulse Rate 86 07/16/18 06:47 Respiratory Rate 18 07/16/18 06:47 Blood Pressure 132/94 07/16/18 06:47 O2 Sat by Pulse Oximetry (%)
[2018-07-16] MEDS: MELATONIN 5 MG TABLETS PO PRN (21:08)
[2018-07-16] MEDS: THIAMINE HCL 100 MG TABLET (FP) PO SCH (21:08)
[2018-07-16] MEDS: IBUPROFEN 600 MG TABLET (FP) PO PRN (21:09)
[2018-07-17] MEDS ORDERED: METHADONE HCL 10 MG TABLET ONE (03:08)
[2018-07-17] MEDS ORDERED: METHADONE HCL 40 MG DISPERSABLE TABLET ONE (03:08)
[2018-07-17] MEDS: METHADONE 40 MG, METHADONE 20 MG PO SCH (06:04)
[2018-07-17] MEDS: CYCLOBENZAPRINE HCL 10 MG TABLET (FP) PO SCH ×3 (06:04→21:16)
[2018-07-17] MEDS: HYDROCHLOROTHIAZIDE 12.5 MG CAPSULE (FP) PO SCH (06:04)
[2018-07-17] MEDS ORDERED: INSULIN (NOVOLOG) ASPART 100 UNITS/ML 10ML VIAL ONE (06:06)
[2018-07-17] MEDS: INSULIN SLIDING SCALE (NOVOLOG) 1 VIAL SQ SCH ×2 (06:13→17:09)
[2018-07-17] MEDS: TAMSULOSIN HCL 0.4 MG CAP PO SCH (07:39)
[2018-07-17] MEDS: LIPASE/PROTEASE/AMYLASE 6,000 UNIT CAPSULE PO SCH ×3 (07:39→17:20)
[2018-07-17] MEDS: BUDESONIDE/FORMETEROL FUMARATE 160/4.5 mcg INHALER IH SCH ×2 (09:58→21:17)
[2018-07-17] MEDS: RANITIDINE HCL 150 MG TABLET (FP) PO SCH ×2 (09:58→21:16)
[2018-07-17] MEDS: NICOTINE 21 MG/24 HOURS TOPICAL PATCH TD SCH (09:58)
[2018-07-17] MEDS: PRENATAL VITAMINS W/ FOLIC ACID TABLET (FP) PO SCH (09:58)
[2018-07-17] MEDS: amLODIPine BESYLATE 10 MG TABLET (FP) PO SCH (09:58)
[2018-07-17] MEDS: QUEtiapine FUMARATE 200 MG TABLET PO SCH ×2 (09:58→21:16)
[2018-07-17] MEDS: IBUPROFEN 600 MG TABLET (FP) PO PRN ×2 (09:59→21:16)
[2018-07-17] MEDS: THIAMINE HCL 100 MG TABLET (FP) PO SCH (21:16)
[2018-07-18] MEDS ORDERED: METHADONE HCL 40 MG DISPERSABLE TABLET ONE (02:39)
[2018-07-18] MEDS ORDERED: METHADONE HCL 10 MG TABLET ONE (02:39)
[2018-07-18] MEDS: METHADONE 40 MG, METHADONE 20 MG PO SCH (06:09)
[2018-07-18] MEDS: HYDROCHLOROTHIAZIDE 12.5 MG CAPSULE (FP) PO SCH (06:09)
[2018-07-18] MEDS: CYCLOBENZAPRINE HCL 10 MG TABLET (FP) PO SCH ×3 (06:09→22:13)
[2018-07-18] MEDS ORDERED: INSULIN (NOVOLOG) ASPART 100 UNITS/ML 10ML VIAL ONE (06:13)
[2018-07-18] MEDS: INSULIN SLIDING SCALE (NOVOLOG) 1 VIAL SQ SCH ×2 (06:22→16:38)
[2018-07-18] MEDS: TAMSULOSIN HCL 0.4 MG CAP PO SCH (07:52)
[2018-07-18] MEDS: LIPASE/PROTEASE/AMYLASE 6,000 UNIT CAPSULE PO SCH ×3 (07:52→16:39)
[2018-07-18] MEDS: NICOTINE 21 MG/24 HOURS TOPICAL PATCH TD SCH (09:33)
[2018-07-18] MEDS: PRENATAL VITAMINS W/ FOLIC ACID TABLET (FP) PO SCH (09:34)
[2018-07-18] MEDS: QUEtiapine FUMARATE 200 MG TABLET PO SCH ×2 (09:34→22:13)
[2018-07-18] MEDS: amLODIPine BESYLATE 10 MG TABLET (FP) PO SCH (09:34)
[2018-07-18] MEDS: IBUPROFEN 600 MG TABLET (FP) PO PRN ×2 (09:34→22:15)
[2018-07-18] MEDS: BUDESONIDE/FORMETEROL FUMARATE 160/4.5 mcg INHALER IH SCH ×2 (09:34→22:13)
[2018-07-18] MEDS: RANITIDINE HCL 150 MG TABLET (FP) PO SCH ×2 (09:34→22:13)
[2018-07-18] MEDS: THIAMINE HCL 100 MG TABLET (FP) PO SCH (22:13)
[2018-07-18] MEDS: MELATONIN 5 MG TABLETS PO PRN (22:15)
[2018-07-19] MEDS ORDERED: METHADONE HCL 40 MG DISPERSABLE TABLET ONE (04:38)
[2018-07-19] MEDS ORDERED: METHADONE HCL 10 MG TABLET ONE (04:38)
[2018-07-19] MEDS: HYDROCHLOROTHIAZIDE 12.5 MG CAPSULE (FP) PO SCH (06:01)
[2018-07-19] MEDS: CYCLOBENZAPRINE HCL 10 MG TABLET (FP) PO SCH ×3 (06:01→21:20)
[2018-07-19] MEDS: METHADONE 40 MG, METHADONE 20 MG PO SCH (06:01)
[2018-07-19] MEDS: INSULIN SLIDING SCALE (NOVOLOG) 1 VIAL SQ SCH ×2 (07:21→16:57)
[2018-07-19] MEDS ORDERED: INSULIN (NOVOLOG) ASPART 100 UNITS/ML 10ML VIAL ONE ×2 (07:22→16:42)
[2018-07-19] MEDS: TAMSULOSIN HCL 0.4 MG CAP PO SCH (07:29)
[2018-07-19] MEDS: LIPASE/PROTEASE/AMYLASE 6,000 UNIT CAPSULE PO SCH ×3 (07:29→16:57)
[2018-07-19] MEDS: RANITIDINE HCL 150 MG TABLET (FP) PO SCH ×2 (09:56→21:20)
[2018-07-19] MEDS: amLODIPine BESYLATE 10 MG TABLET (FP) PO SCH (09:56)
[2018-07-19] MEDS: QUEtiapine FUMARATE 200 MG TABLET PO SCH ×2 (09:56→21:20)
[2018-07-19] MEDS: PRENATAL VITAMINS W/ FOLIC ACID TABLET (FP) PO SCH (09:56)
[2018-07-19] MEDS: NICOTINE 21 MG/24 HOURS TOPICAL PATCH TD SCH (09:56)
[2018-07-19] MEDS: BUDESONIDE/FORMETEROL FUMARATE 160/4.5 mcg INHALER IH SCH ×2 (09:57→21:19)
[2018-07-19] MEDS: IBUPROFEN 600 MG TABLET (FP) PO PRN ×2 (09:58→21:21)
[2018-07-19] MEDS: MELATONIN 5 MG TABLETS PO PRN (21:20)
[2018-07-19] MEDS: THIAMINE HCL 100 MG TABLET (FP) PO SCH (21:20)
[2018-07-20] MEDS ORDERED: METHADONE HCL 10 MG TABLET ONE (04:01)
[2018-07-20] MEDS ORDERED: METHADONE HCL 40 MG DISPERSABLE TABLET ONE (04:02)
[2018-07-20] MEDS: HYDROCHLOROTHIAZIDE 12.5 MG CAPSULE (FP) PO SCH (05:55)
[2018-07-20] MEDS: METHADONE 40 MG, METHADONE 20 MG PO SCH (05:55)
[2018-07-20] MEDS: CYCLOBENZAPRINE HCL 10 MG TABLET (FP) PO SCH ×3 (05:55→21:37)
[2018-07-20] MEDS ORDERED: INSULIN (NOVOLOG) ASPART 100 UNITS/ML 10ML VIAL ONE (07:01)
[2018-07-20] MEDS: INSULIN SLIDING SCALE (NOVOLOG) 1 VIAL SQ SCH ×2 (07:03→16:21)
[2018-07-20] MEDS: LIPASE/PROTEASE/AMYLASE 6,000 UNIT CAPSULE PO SCH ×3 (07:38→16:56)
[2018-07-20] MEDS: TAMSULOSIN HCL 0.4 MG CAP PO SCH (07:38)
[2018-07-20] MEDS ORDERED: PT OWN MED DRAWER 7, Y5N ONE (08:29)
[2018-07-20] MEDS: BUDESONIDE/FORMETEROL FUMARATE 160/4.5 mcg INHALER IH SCH ×2 (10:01→21:39)
[2018-07-20] MEDS: RANITIDINE HCL 150 MG TABLET (FP) PO SCH ×2 (10:01→21:37)
[2018-07-20] MEDS: amLODIPine BESYLATE 10 MG TABLET (FP) PO SCH (10:01)
[2018-07-20] MEDS: NICOTINE 21 MG/24 HOURS TOPICAL PATCH TD SCH (10:01)
[2018-07-20] MEDS: PRENATAL VITAMINS W/ FOLIC ACID TABLET (FP) PO SCH (10:01)
[2018-07-20] MEDS: QUEtiapine FUMARATE 200 MG TABLET PO SCH ×2 (10:04→21:37)
[2018-07-20] MEDS: IBUPROFEN 600 MG TABLET (FP) PO PRN ×2 (10:06→21:39)
--- NOTE | 2018-07-20 10:49 | PN ---
[facility] Progress Note (SOAP) Subjective: Client c/o abd pain, states it occurs after he eats and then he needs to move his bowels. States stool is hard and difficult to pass. Objective: 07/20/18 10:47 Abd sofr, non-tender, non-distended, +BS all 4 quads. 07/20/18 10:48 Vital Signs Period Temp Pulse Resp BP Sys/Lopez Pulse Ox Last 24 Hr 98 F 90-109 18 109-143/79-94 Assessment: 07/20/18 10:48 Constipation Plan: Encouraged client to take MOM as ordered; Colace ordered. Increase fluids.
[2018-07-20] MEDS: THIAMINE HCL 100 MG TABLET (FP) PO SCH (21:36)
[2018-07-20] MEDS: MELATONIN 5 MG TABLETS PO PRN (21:37)
[2018-07-20] MEDS: DOCUSATE SODIUM 100 MG CAPSULE (FP) PO SCH (21:38)
[2018-07-21] MEDS ORDERED: METHADONE HCL 40 MG DISPERSABLE TABLET ONE (03:34)
[2018-07-21] MEDS ORDERED: METHADONE HCL 10 MG TABLET ONE (03:34)
[2018-07-21] MEDS: METHADONE 40 MG, METHADONE 20 MG PO SCH (06:01)
[2018-07-21] MEDS: CYCLOBENZAPRINE HCL 10 MG TABLET (FP) PO SCH ×3 (06:02→21:07)
[2018-07-21] MEDS: HYDROCHLOROTHIAZIDE 12.5 MG CAPSULE (FP) PO SCH (06:03)
[2018-07-21] MEDS: INSULIN SLIDING SCALE (NOVOLOG) 1 VIAL SQ SCH ×2 (06:16→16:28)
[2018-07-21] MEDS ORDERED: INSULIN (NOVOLOG) ASPART 100 UNITS/ML 10ML VIAL ONE (06:45)
[2018-07-21] MEDS: TAMSULOSIN HCL 0.4 MG CAP PO SCH (07:36)
[2018-07-21] MEDS: LIPASE/PROTEASE/AMYLASE 6,000 UNIT CAPSULE PO SCH ×3 (07:36→17:28)
[2018-07-21] MEDS: PRENATAL VITAMINS W/ FOLIC ACID TABLET (FP) PO SCH (09:47)
[2018-07-21] MEDS: RANITIDINE HCL 150 MG TABLET (FP) PO SCH (09:47)
[2018-07-21] MEDS: QUEtiapine FUMARATE 200 MG TABLET PO SCH ×2 (09:47→21:06)
[2018-07-21] MEDS: amLODIPine BESYLATE 10 MG TABLET (FP) PO SCH (09:47)
[2018-07-21] MEDS: NICOTINE 21 MG/24 HOURS TOPICAL PATCH TD SCH (09:47)
[2018-07-21] MEDS: BUDESONIDE/FORMETEROL FUMARATE 160/4.5 mcg INHALER IH SCH ×2 (09:49→21:07)
[2018-07-21] MEDS: IBUPROFEN 600 MG TABLET (FP) PO PRN ×2 (09:49→21:09)
--- NOTE | 2018-07-21 10:40 | PN ---
S Progress Note Note: Client c/o Zantac is not working, he continues to have abd pain after eating. States he is using the colace with good effect. PE: Abd soft, non-tender, non-distended, +BS all 4 quadrants. Vital Signs (72 hours) 07/19/18 07/19/18 07/19/18 03:30 06:46 09:30 Temperature 97.7 F Pulse Rate 86 110 H Respiratory 18 18 18 Rate Blood Pressure 132/96 105/75 07/20/18 07/20/18 07/21/18 06:33 10:00 00:30 Temperature 98 F Pulse Rate 90 109 H Respiratory 18 18 Rate Blood Pressure 143/94 109/79 07/21/18 07/21/18 07/21/18 03:30 06:48 09:30 Temperature 98.2 F Pulse Rate 95 H 110 H Respiratory 18 18 18 Rate Blood Pressure 121/87 107/77 Diagnosis: GERD PlanL Zantac discontinued, Protonix ordered
[2018-07-21] MEDS ORDERED: PANTOPRAZOLE 40 MG TABLET (FP) PO ONE (16:00)
[2018-07-21] MEDS: DOCUSATE SODIUM 100 MG CAPSULE (FP) PO SCH (21:06)
[2018-07-21] MEDS: THIAMINE HCL 100 MG TABLET (FP) PO SCH (21:06)
[2018-07-21] MEDS: MELATONIN 5 MG TABLETS PO PRN (21:07)
[2018-07-22] MEDS ORDERED: METHADONE HCL 10 MG TABLET ONE (02:42)
[2018-07-22] MEDS ORDERED: METHADONE HCL 40 MG DISPERSABLE TABLET ONE (02:42)
[2018-07-22] MEDS: HYDROCHLOROTHIAZIDE 12.5 MG CAPSULE (FP) PO SCH (06:17)
[2018-07-22] MEDS: CYCLOBENZAPRINE HCL 10 MG TABLET (FP) PO SCH ×3 (06:17→21:37)
[2018-07-22] MEDS: METHADONE 40 MG, METHADONE 20 MG PO SCH (06:17)
[2018-07-22] MEDS ORDERED: INSULIN (NOVOLOG) ASPART 100 UNITS/ML 10ML VIAL ONE (06:41)
[2018-07-22] MEDS: INSULIN SLIDING SCALE (NOVOLOG) 1 VIAL SQ SCH ×2 (06:42→17:17)
[2018-07-22] MEDS: TAMSULOSIN HCL 0.4 MG CAP PO SCH (07:50)
[2018-07-22] MEDS: LIPASE/PROTEASE/AMYLASE 6,000 UNIT CAPSULE PO SCH ×3 (07:50→17:18)
[2018-07-22] MEDS: PANTOPRAZOLE 40 MG TABLET (FP) PO SCH (09:52)
[2018-07-22] MEDS: NICOTINE 21 MG/24 HOURS TOPICAL PATCH TD SCH (09:52)
[2018-07-22] MEDS: BUDESONIDE/FORMETEROL FUMARATE 160/4.5 mcg INHALER IH SCH ×2 (09:52→21:37)
[2018-07-22] MEDS: PRENATAL VITAMINS W/ FOLIC ACID TABLET (FP) PO SCH (09:52)
[2018-07-22] MEDS: QUEtiapine FUMARATE 200 MG TABLET PO SCH ×2 (09:52→21:37)
[2018-07-22] MEDS: amLODIPine BESYLATE 10 MG TABLET (FP) PO SCH (09:52)
[2018-07-22] MEDS: IBUPROFEN 600 MG TABLET (FP) PO PRN ×2 (09:54→21:38)
[2018-07-22] MEDS: DOCUSATE SODIUM 100 MG CAPSULE (FP) PO SCH (21:36)
[2018-07-22] MEDS: THIAMINE HCL 100 MG TABLET (FP) PO SCH (21:36)
[2018-07-22] MEDS: MELATONIN 5 MG TABLETS PO PRN (21:36)
[2018-07-23] MEDS ORDERED: METHADONE HCL 10 MG TABLET ONE (04:33)
[2018-07-23] MEDS ORDERED: METHADONE HCL 40 MG DISPERSABLE TABLET ONE (04:33)
[2018-07-23] MEDS: IBUPROFEN 600 MG TABLET (FP) PO PRN ×3 (05:58→21:41)
[2018-07-23] MEDS: CYCLOBENZAPRINE HCL 10 MG TABLET (FP) PO SCH ×3 (05:58→21:35)
[2018-07-23] MEDS: HYDROCHLOROTHIAZIDE 12.5 MG CAPSULE (FP) PO SCH (05:58)
[2018-07-23] MEDS: METHADONE 40 MG, METHADONE 20 MG PO SCH (05:58)
[2018-07-23] MEDS: TAMSULOSIN HCL 0.4 MG CAP PO SCH (07:39)
[2018-07-23] MEDS: INSULIN SLIDING SCALE (NOVOLOG) 1 VIAL SQ SCH ×2 (07:40→17:01)
[2018-07-23] MEDS: LIPASE/PROTEASE/AMYLASE 6,000 UNIT CAPSULE PO SCH ×3 (07:40→17:00)
[2018-07-23] MEDS: NICOTINE 21 MG/24 HOURS TOPICAL PATCH TD SCH (09:16)
[2018-07-23] MEDS: PRENATAL VITAMINS W/ FOLIC ACID TABLET (FP) PO SCH (09:16)
[2018-07-23] MEDS: amLODIPine BESYLATE 10 MG TABLET (FP) PO SCH (09:16)
[2018-07-23] MEDS: PANTOPRAZOLE 40 MG TABLET (FP) PO SCH (09:16)
[2018-07-23] MEDS: QUEtiapine FUMARATE 200 MG TABLET PO SCH ×2 (09:16→21:35)
[2018-07-23] MEDS: BUDESONIDE/FORMETEROL FUMARATE 160/4.5 mcg INHALER IH SCH ×2 (09:17→21:34)
[2018-07-23] MEDS ORDERED: INSULIN (NOVOLOG) ASPART 100 UNITS/ML 10ML VIAL ONE (16:46)
[2018-07-23] MEDS: DOCUSATE SODIUM 100 MG CAPSULE (FP) PO SCH (21:35)
[2018-07-23] MEDS: THIAMINE HCL 100 MG TABLET (FP) PO SCH (21:36)
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
[2018-07-23] MEDS: SUVOREXANT 10 MG TABLET PO PRN (22:19)
[2018-07-24] MEDS ORDERED: METHADONE HCL 40 MG DISPERSABLE TABLET ONE (04:38)
[2018-07-24] MEDS ORDERED: METHADONE HCL 10 MG TABLET ONE (04:38)
[2018-07-24] MEDS: HYDROCHLOROTHIAZIDE 12.5 MG CAPSULE (FP) PO SCH (05:53)
[2018-07-24] MEDS: METHADONE 40 MG, METHADONE 20 MG PO SCH (05:53)
[2018-07-24] MEDS: CYCLOBENZAPRINE HCL 10 MG TABLET (FP) PO SCH ×3 (05:53→21:34)
[2018-07-24] MEDS ORDERED: INSULIN (NOVOLOG) ASPART 100 UNITS/ML 10ML VIAL ONE ×2 (06:50→16:23)
[2018-07-24] MEDS: INSULIN SLIDING SCALE (NOVOLOG) 1 VIAL SQ SCH ×2 (06:51→16:45)
[2018-07-24] MEDS: TAMSULOSIN HCL 0.4 MG CAP PO SCH (07:39)
[2018-07-24] MEDS: LIPASE/PROTEASE/AMYLASE 6,000 UNIT CAPSULE PO SCH ×3 (07:39→16:44)
[2018-07-24] MEDS: NICOTINE 21 MG/24 HOURS TOPICAL PATCH TD SCH (09:47)
[2018-07-24] MEDS: amLODIPine BESYLATE 10 MG TABLET (FP) PO SCH (09:47)
[2018-07-24] MEDS: QUEtiapine FUMARATE 200 MG TABLET PO SCH ×2 (09:47→21:34)
[2018-07-24] MEDS: PRENATAL VITAMINS W/ FOLIC ACID TABLET (FP) PO SCH (09:47)
[2018-07-24] MEDS: PANTOPRAZOLE 40 MG TABLET (FP) PO SCH (09:47)
[2018-07-24] MEDS: IBUPROFEN 600 MG TABLET (FP) PO PRN ×2 (09:48→21:34)
[2018-07-24] MEDS: BUDESONIDE/FORMETEROL FUMARATE 160/4.5 mcg INHALER IH SCH ×2 (09:49→21:36)
[2018-07-24] MEDS: SUVOREXANT 10 MG TABLET PO PRN (21:33)
[2018-07-24] MEDS: THIAMINE HCL 100 MG TABLET (FP) PO SCH (21:33)
[2018-07-24] MEDS: DOCUSATE SODIUM 100 MG CAPSULE (FP) PO SCH (21:33)
[2018-07-24] MEDS: MELATONIN 5 MG TABLETS PO PRN (21:34)
[2018-07-25] MEDS ORDERED: METHADONE HCL 10 MG TABLET ONE (04:04)
[2018-07-25] MEDS ORDERED: METHADONE HCL 40 MG DISPERSABLE TABLET ONE (04:04)
[2018-07-25] MEDS: METHADONE 40 MG, METHADONE 20 MG PO SCH (06:04)
[2018-07-25] MEDS: HYDROCHLOROTHIAZIDE 12.5 MG CAPSULE (FP) PO SCH (06:04)
[2018-07-25] MEDS: CYCLOBENZAPRINE HCL 10 MG TABLET (FP) PO SCH ×3 (06:04→21:04)
[2018-07-25] MEDS ORDERED: INSULIN (NOVOLOG) ASPART 100 UNITS/ML 10ML VIAL ONE ×2 (06:45→16:37)
[2018-07-25] MEDS: INSULIN SLIDING SCALE (NOVOLOG) 1 VIAL SQ SCH ×2 (07:28→16:48)
[2018-07-25] MEDS: LIPASE/PROTEASE/AMYLASE 6,000 UNIT CAPSULE PO SCH ×3 (07:28→16:48)
[2018-07-25] MEDS: TAMSULOSIN HCL 0.4 MG CAP PO SCH (07:53)
[2018-07-25] MEDS: BUDESONIDE/FORMETEROL FUMARATE 160/4.5 mcg INHALER IH SCH ×2 (09:32→21:03)
[2018-07-25] MEDS: QUEtiapine FUMARATE 200 MG TABLET PO SCH ×2 (09:32→21:04)
[2018-07-25] MEDS: amLODIPine BESYLATE 10 MG TABLET (FP) PO SCH (09:32)
[2018-07-25] MEDS: PRENATAL VITAMINS W/ FOLIC ACID TABLET (FP) PO SCH (09:32)
[2018-07-25] MEDS: NICOTINE 21 MG/24 HOURS TOPICAL PATCH TD SCH (09:32)
[2018-07-25] MEDS: PANTOPRAZOLE 40 MG TABLET (FP) PO SCH (09:32)
[2018-07-25] MEDS: IBUPROFEN 600 MG TABLET (FP) PO PRN ×2 (09:33→21:05)
--- NOTE | 2018-07-25 19:28 | PN ---
S Progress Note Note: Psychiatric nurse practitioner note: Call received requesting Belsomra renewal. Will renew Belsomra 10mg HS. prn. Verbal consent given.
[2018-07-25] MEDS: MELATONIN 5 MG TABLETS PO PRN (21:03)
[2018-07-25] MEDS: SUVOREXANT 10 MG TABLET PO PRN (21:04)
[2018-07-25] MEDS: DOCUSATE SODIUM 100 MG CAPSULE (FP) PO SCH (21:04)
[2018-07-25] MEDS: THIAMINE HCL 100 MG TABLET (FP) PO SCH (21:06)
[2018-07-26] MEDS ORDERED: METHADONE HCL 10 MG TABLET ONE (03:19)
[2018-07-26] MEDS ORDERED: METHADONE HCL 40 MG DISPERSABLE TABLET ONE (03:19)
[2018-07-26] MEDS: METHADONE 40 MG, METHADONE 20 MG PO SCH (06:05)
[2018-07-26] MEDS: HYDROCHLOROTHIAZIDE 12.5 MG CAPSULE (FP) PO SCH (06:06)
[2018-07-26] MEDS: CYCLOBENZAPRINE HCL 10 MG TABLET (FP) PO SCH ×3 (06:06→21:06)
[2018-07-26] MEDS ORDERED: PT OWN MED DRAWER 7, Y5N ONE (06:44)
[2018-07-26] MEDS ORDERED: INSULIN (NOVOLOG) ASPART 100 UNITS/ML 10ML VIAL ONE ×2 (06:44→16:14)
[2018-07-26] MEDS: LIPASE/PROTEASE/AMYLASE 6,000 UNIT CAPSULE PO SCH ×3 (07:46→16:31)
[2018-07-26] MEDS: INSULIN SLIDING SCALE (NOVOLOG) 1 VIAL SQ SCH ×2 (07:46→16:34)
[2018-07-26] MEDS: TAMSULOSIN HCL 0.4 MG CAP PO SCH (07:46)
[2018-07-26] MEDS: PRENATAL VITAMINS W/ FOLIC ACID TABLET (FP) PO SCH (09:42)
[2018-07-26] MEDS: NICOTINE 21 MG/24 HOURS TOPICAL PATCH TD SCH (09:42)
[2018-07-26] MEDS: amLODIPine BESYLATE 10 MG TABLET (FP) PO SCH (09:42)
[2018-07-26] MEDS: PANTOPRAZOLE 40 MG TABLET (FP) PO SCH (09:42)
[2018-07-26] MEDS: IBUPROFEN 600 MG TABLET (FP) PO PRN ×2 (09:42→21:07)
[2018-07-26] MEDS: QUEtiapine FUMARATE 200 MG TABLET PO SCH ×2 (09:42→21:06)
[2018-07-26] MEDS: BUDESONIDE/FORMETEROL FUMARATE 160/4.5 mcg INHALER IH SCH ×2 (09:42→21:07)
[2018-07-26] MEDS: DOCUSATE SODIUM 100 MG CAPSULE (FP) PO SCH (21:04)
[2018-07-26] MEDS: MELATONIN 5 MG TABLETS PO PRN (21:05)
[2018-07-26] MEDS: SUVOREXANT 10 MG TABLET PO PRN (21:06)
[2018-07-26] MEDS: THIAMINE HCL 100 MG TABLET (FP) PO SCH (21:07)
[2018-07-27] MEDS ORDERED: METHADONE HCL 10 MG TABLET ONE (04:26)
[2018-07-27] MEDS ORDERED: METHADONE HCL 40 MG DISPERSABLE TABLET ONE (04:27)
[2018-07-27] MEDS: HYDROCHLOROTHIAZIDE 12.5 MG CAPSULE (FP) PO SCH (06:01)
[2018-07-27] MEDS: CYCLOBENZAPRINE HCL 10 MG TABLET (FP) PO SCH ×3 (06:01→21:21)
[2018-07-27] MEDS: METHADONE 40 MG, METHADONE 20 MG PO SCH (06:01)
[2018-07-27] MEDS: LIPASE/PROTEASE/AMYLASE 6,000 UNIT CAPSULE PO SCH ×3 (07:29→17:36)
[2018-07-27] MEDS: TAMSULOSIN HCL 0.4 MG CAP PO SCH (07:29)
[2018-07-27] MEDS: INSULIN SLIDING SCALE (NOVOLOG) 1 VIAL SQ SCH ×2 (07:29→16:29)
[2018-07-27] MEDS ORDERED: INSULIN (NOVOLOG) ASPART 100 UNITS/ML 10ML VIAL ONE (07:40)
[2018-07-27] MEDS: QUEtiapine FUMARATE 200 MG TABLET PO SCH ×2 (09:35→21:21)
[2018-07-27] MEDS: PANTOPRAZOLE 40 MG TABLET (FP) PO SCH (09:35)
[2018-07-27] MEDS: amLODIPine BESYLATE 10 MG TABLET (FP) PO SCH (09:35)
[2018-07-27] MEDS: PRENATAL VITAMINS W/ FOLIC ACID TABLET (FP) PO SCH (09:35)
[2018-07-27] MEDS: NICOTINE 21 MG/24 HOURS TOPICAL PATCH TD SCH (09:36)
[2018-07-27] MEDS: IBUPROFEN 600 MG TABLET (FP) PO PRN ×2 (09:37→21:21)
[2018-07-27] MEDS: BUDESONIDE/FORMETEROL FUMARATE 160/4.5 mcg INHALER IH SCH ×2 (09:58→21:22)
[2018-07-27] MEDS: MELATONIN 5 MG TABLETS PO PRN (21:20)
[2018-07-27] MEDS: DOCUSATE SODIUM 100 MG CAPSULE (FP) PO SCH (21:20)
[2018-07-27] MEDS: THIAMINE HCL 100 MG TABLET (FP) PO SCH (21:20)
[2018-07-27] MEDS: SUVOREXANT 10 MG TABLET PO PRN (21:21)
[2018-07-28] MEDS ORDERED: METHADONE HCL 10 MG TABLET ONE (05:08)
[2018-07-28] MEDS ORDERED: METHADONE HCL 40 MG DISPERSABLE TABLET ONE (05:08)
[2018-07-28] MEDS: HYDROCHLOROTHIAZIDE 12.5 MG CAPSULE (FP) PO SCH (05:52)
[2018-07-28] MEDS: CYCLOBENZAPRINE HCL 10 MG TABLET (FP) PO SCH ×3 (05:52→21:41)
[2018-07-28] MEDS: METHADONE 40 MG, METHADONE 20 MG PO SCH (05:52)
[2018-07-28] MEDS ORDERED: INSULIN (NOVOLOG) ASPART 100 UNITS/ML 10ML VIAL ONE (06:41)
[2018-07-28] MEDS: INSULIN SLIDING SCALE (NOVOLOG) 1 VIAL SQ SCH ×2 (06:43→16:46)
[2018-07-28] MEDS: TAMSULOSIN HCL 0.4 MG CAP PO SCH (07:42)
[2018-07-28] MEDS: LIPASE/PROTEASE/AMYLASE 6,000 UNIT CAPSULE PO SCH ×3 (07:42→16:47)
[2018-07-28] MEDS: PRENATAL VITAMINS W/ FOLIC ACID TABLET (FP) PO SCH (09:46)
[2018-07-28] MEDS: amLODIPine BESYLATE 10 MG TABLET (FP) PO SCH (09:46)
[2018-07-28] MEDS: NICOTINE 21 MG/24 HOURS TOPICAL PATCH TD SCH (09:46)
[2018-07-28] MEDS: PANTOPRAZOLE 40 MG TABLET (FP) PO SCH (09:46)
[2018-07-28] MEDS: QUEtiapine FUMARATE 200 MG TABLET PO SCH ×2 (09:46→21:41)
[2018-07-28] MEDS: IBUPROFEN 600 MG TABLET (FP) PO PRN ×2 (09:47→21:42)
[2018-07-28] MEDS: BUDESONIDE/FORMETEROL FUMARATE 160/4.5 mcg INHALER IH SCH ×2 (09:48→21:44)
--- NOTE | 2018-07-28 11:18 | PN ---
[facility] Progress Note Note: Client states he diagnoses with gallstones at [facility] and advised to follow up with his PCP. Client has not done that and states that he is getting occasional pain after eating. Is presently on protonix and creon ( home med). Client states he does not have a regular PCP, but gets his medications renewed as needed through as needed visits to a physician. Requesting a referral for evaluation of his gallstones. Advised that this work- up needs to be done upon discharge with follow up by a primary care provider. Client agreed to make arrangements when he is discharged.
[2018-07-28] MEDS: THIAMINE HCL 100 MG TABLET (FP) PO SCH (21:40)
[2018-07-28] MEDS: SUVOREXANT 10 MG TABLET PO PRN (21:41)
[2018-07-28] MEDS: DOCUSATE SODIUM 100 MG CAPSULE (FP) PO SCH (21:42)
[2018-07-28] MEDS: MELATONIN 5 MG TABLETS PO PRN (21:42)
[2018-07-29] MEDS ORDERED: METHADONE HCL 40 MG DISPERSABLE TABLET ONE (03:49)
[2018-07-29] MEDS ORDERED: METHADONE HCL 10 MG TABLET ONE (03:49)
[2018-07-29] MEDS: CYCLOBENZAPRINE HCL 10 MG TABLET (FP) PO SCH ×3 (05:51→21:03)
[2018-07-29] MEDS: HYDROCHLOROTHIAZIDE 12.5 MG CAPSULE (FP) PO SCH (05:51)
[2018-07-29] MEDS: METHADONE 40 MG, METHADONE 20 MG PO SCH (05:51)
[2018-07-29] MEDS ORDERED: INSULIN (NOVOLOG) ASPART 100 UNITS/ML 10ML VIAL ONE ×2 (06:38→16:24)
[2018-07-29] MEDS: INSULIN SLIDING SCALE (NOVOLOG) 1 VIAL SQ SCH ×2 (06:39→16:46)
[2018-07-29] MEDS: LIPASE/PROTEASE/AMYLASE 6,000 UNIT CAPSULE PO SCH ×3 (07:25→16:46)
[2018-07-29] MEDS: TAMSULOSIN HCL 0.4 MG CAP PO SCH (07:34)
[2018-07-29] MEDS: amLODIPine BESYLATE 10 MG TABLET (FP) PO SCH (09:34)
[2018-07-29] MEDS: QUEtiapine FUMARATE 200 MG TABLET PO SCH ×2 (09:34→21:03)
[2018-07-29] MEDS: NICOTINE 21 MG/24 HOURS TOPICAL PATCH TD SCH (09:34)
[2018-07-29] MEDS: PANTOPRAZOLE 40 MG TABLET (FP) PO SCH (09:34)
[2018-07-29] MEDS: BUDESONIDE/FORMETEROL FUMARATE 160/4.5 mcg INHALER IH SCH ×2 (09:34→21:03)
[2018-07-29] MEDS: PRENATAL VITAMINS W/ FOLIC ACID TABLET (FP) PO SCH (09:34)
[2018-07-29] MEDS: IBUPROFEN 600 MG TABLET (FP) PO PRN ×2 (09:35→21:05)
[2018-07-29] MEDS ORDERED: PT OWN MED DRAWER 7, Y5N ONE ×2 (11:37→19:25)
[2018-07-29] MEDS: SUVOREXANT 10 MG TABLET PO PRN (21:03)
[2018-07-29] MEDS: DOCUSATE SODIUM 100 MG CAPSULE (FP) PO SCH (21:03)
[2018-07-29] MEDS: MELATONIN 5 MG TABLETS PO PRN (21:04)
[2018-07-29] MEDS: THIAMINE HCL 100 MG TABLET (FP) PO SCH (21:06)
[2018-07-30] MEDS ORDERED: METHADONE HCL 10 MG TABLET ONE (03:46)
[2018-07-30] MEDS ORDERED: METHADONE HCL 40 MG DISPERSABLE TABLET ONE (03:46)
[2018-07-30] MEDS: CYCLOBENZAPRINE HCL 10 MG TABLET (FP) PO SCH ×3 (05:43→21:49)
[2018-07-30] MEDS: METHADONE 40 MG, METHADONE 20 MG PO SCH (05:43)
[2018-07-30] MEDS: HYDROCHLOROTHIAZIDE 12.5 MG CAPSULE (FP) PO SCH (05:43)
[2018-07-30] MEDS: INSULIN SLIDING SCALE (NOVOLOG) 1 VIAL SQ SCH ×2 (06:39→16:46)
[2018-07-30] MEDS: LIPASE/PROTEASE/AMYLASE 6,000 UNIT CAPSULE PO SCH ×3 (07:14→16:46)
[2018-07-30] MEDS: TAMSULOSIN HCL 0.4 MG CAP PO SCH (07:51)
[2018-07-30] MEDS: amLODIPine BESYLATE 10 MG TABLET (FP) PO SCH (09:30)
[2018-07-30] MEDS: NICOTINE 21 MG/24 HOURS TOPICAL PATCH TD SCH (09:30)
[2018-07-30] MEDS: PANTOPRAZOLE 40 MG TABLET (FP) PO SCH (09:30)
[2018-07-30] MEDS: QUEtiapine FUMARATE 200 MG TABLET PO SCH ×2 (09:30→21:49)
[2018-07-30] MEDS: PRENATAL VITAMINS W/ FOLIC ACID TABLET (FP) PO SCH (09:30)
[2018-07-30] MEDS: BUDESONIDE/FORMETEROL FUMARATE 160/4.5 mcg INHALER IH SCH ×2 (09:30→21:50)
[2018-07-30] MEDS: IBUPROFEN 600 MG TABLET (FP) PO PRN ×2 (09:31→21:48)
[2018-07-30] MEDS ORDERED: INSULIN (NOVOLOG) ASPART 100 UNITS/ML 10ML VIAL ONE (16:15)
[2018-07-30] MEDS: DOCUSATE SODIUM 100 MG CAPSULE (FP) PO SCH (21:47)
[2018-07-30] MEDS: THIAMINE HCL 100 MG TABLET (FP) PO SCH (21:47)
[2018-07-30] MEDS: SUVOREXANT 10 MG TABLET PO PRN (21:48)
[2018-07-30] MEDS: MELATONIN 5 MG TABLETS PO PRN (21:48)
[2018-07-31] MEDS ORDERED: METHADONE HCL 10 MG TABLET ONE (05:17)
[2018-07-31] MEDS ORDERED: METHADONE HCL 40 MG DISPERSABLE TABLET ONE (05:17)
[2018-07-31] MEDS: CYCLOBENZAPRINE HCL 10 MG TABLET (FP) PO SCH ×3 (06:13→21:03)
[2018-07-31] MEDS: METHADONE 40 MG, METHADONE 20 MG PO SCH (06:13)
[2018-07-31] MEDS: HYDROCHLOROTHIAZIDE 12.5 MG CAPSULE (FP) PO SCH (06:13)
[2018-07-31] MEDS ORDERED: INSULIN (NOVOLOG) ASPART 100 UNITS/ML 10ML VIAL ONE (06:55)
[2018-07-31] MEDS: TAMSULOSIN HCL 0.4 MG CAP PO SCH (07:50)
[2018-07-31] MEDS: INSULIN SLIDING SCALE (NOVOLOG) 1 VIAL SQ SCH ×2 (07:51→16:43)
[2018-07-31] MEDS: LIPASE/PROTEASE/AMYLASE 6,000 UNIT CAPSULE PO SCH ×3 (07:57→17:30)
[2018-07-31] MEDS: NICOTINE 21 MG/24 HOURS TOPICAL PATCH TD SCH (09:05)
[2018-07-31] MEDS: PANTOPRAZOLE 40 MG TABLET (FP) PO SCH (09:05)
[2018-07-31] MEDS: BUDESONIDE/FORMETEROL FUMARATE 160/4.5 mcg INHALER IH SCH ×2 (09:05→21:03)
[2018-07-31] MEDS: amLODIPine BESYLATE 10 MG TABLET (FP) PO SCH (09:05)
[2018-07-31] MEDS: PRENATAL VITAMINS W/ FOLIC ACID TABLET (FP) PO SCH (09:05)
[2018-07-31] MEDS: QUEtiapine FUMARATE 200 MG TABLET PO SCH ×2 (09:05→21:03)
[2018-07-31] MEDS: IBUPROFEN 600 MG TABLET (FP) PO PRN (09:06)
--- NOTE | 2018-07-31 19:19 | PN ---
[facility] Progress Note Note: Psychiatry Attending's note : Called, earlier, by GARRISON Kingston. Issue : renewal of belsomra. At patient's request. Chart reviewed. Medication confirmed. Dr Alva note : read. Belsomra 10 mg po prn. Resumed.
[2018-07-31] MEDS: THIAMINE HCL 100 MG TABLET (FP) PO SCH (21:02)
[2018-07-31] MEDS: MELATONIN 5 MG TABLETS PO PRN (21:02)
[2018-07-31] MEDS: DOCUSATE SODIUM 100 MG CAPSULE (FP) PO SCH (21:03)
[2018-07-31] MEDS ORDERED: SUVOREXANT 10 MG TABLET PO PRN (22:00)
[2018-08-01] MEDS ORDERED: METHADONE HCL 40 MG DISPERSABLE TABLET ONE (05:59)
[2018-08-01] MEDS ORDERED: METHADONE HCL 10 MG TABLET ONE (05:59)
[2018-08-01] MEDS: CYCLOBENZAPRINE HCL 10 MG TABLET (FP) PO SCH ×3 (06:05→22:02)
[2018-08-01] MEDS: INSULIN SLIDING SCALE (NOVOLOG) 1 VIAL SQ SCH ×2 (06:05→16:36)
[2018-08-01] MEDS: HYDROCHLOROTHIAZIDE 12.5 MG CAPSULE (FP) PO SCH (06:05)
[2018-08-01] MEDS ORDERED: METHADONE HCL 10 MG TABLET PO SCH (06:15)
[2018-08-01] MEDS: METHADONE 40 MG, METHADONE 20 MG PO SCH (06:17)
[2018-08-01] MEDS: TAMSULOSIN HCL 0.4 MG CAP PO SCH (07:46)
[2018-08-01] MEDS: LIPASE/PROTEASE/AMYLASE 6,000 UNIT CAPSULE PO SCH ×3 (07:48→16:36)
[2018-08-01] MEDS: NICOTINE 21 MG/24 HOURS TOPICAL PATCH TD SCH (09:38)
[2018-08-01] MEDS: PRENATAL VITAMINS W/ FOLIC ACID TABLET (FP) PO SCH (09:38)
[2018-08-01] MEDS: QUEtiapine FUMARATE 200 MG TABLET PO SCH ×2 (09:38→22:01)
[2018-08-01] MEDS: amLODIPine BESYLATE 10 MG TABLET (FP) PO SCH (09:38)
[2018-08-01] MEDS: PANTOPRAZOLE 40 MG TABLET (FP) PO SCH (09:38)
[2018-08-01] MEDS: IBUPROFEN 600 MG TABLET (FP) PO PRN ×2 (09:39→22:02)
[2018-08-01] MEDS: BUDESONIDE/FORMETEROL FUMARATE 160/4.5 mcg INHALER IH SCH ×2 (09:41→22:04)
[2018-08-01] MEDS ORDERED: INSULIN (NOVOLOG) ASPART 100 UNITS/ML 10ML VIAL ONE (16:14)
[2018-08-01] MEDS: DOCUSATE SODIUM 100 MG CAPSULE (FP) PO SCH (22:01)
[2018-08-01] MEDS: MELATONIN 5 MG TABLETS PO PRN (22:01)
[2018-08-01] MEDS: THIAMINE HCL 100 MG TABLET (FP) PO SCH (22:01)
[2018-08-01] MEDS: NICOTINE POLACRILEX 2 MG GUM BC PRN (22:32)
[2018-08-02] MEDS ORDERED: METHADONE HCL 40 MG DISPERSABLE TABLET ONE (04:24)
[2018-08-02] MEDS ORDERED: METHADONE HCL 10 MG TABLET ONE (04:24)
[2018-08-02] MEDS: METHADONE 40 MG, METHADONE 20 MG PO SCH (05:49)
[2018-08-02] MEDS: CYCLOBENZAPRINE HCL 10 MG TABLET (FP) PO SCH ×3 (05:50→21:06)
[2018-08-02] MEDS: HYDROCHLOROTHIAZIDE 12.5 MG CAPSULE (FP) PO SCH (05:50)
[2018-08-02] MEDS ORDERED: INSULIN (NOVOLOG) ASPART 100 UNITS/ML 10ML VIAL ONE ×2 (06:53→16:37)
[2018-08-02] MEDS: INSULIN SLIDING SCALE (NOVOLOG) 1 VIAL SQ SCH ×2 (06:53→16:54)
[2018-08-02] MEDS: LIPASE/PROTEASE/AMYLASE 6,000 UNIT CAPSULE PO SCH ×3 (07:30→16:55)
[2018-08-02] MEDS: TAMSULOSIN HCL 0.4 MG CAP PO SCH (07:30)
[2018-08-02] MEDS: NICOTINE 21 MG/24 HOURS TOPICAL PATCH TD SCH (10:01)
[2018-08-02] MEDS: PANTOPRAZOLE 40 MG TABLET (FP) PO SCH (10:01)
[2018-08-02] MEDS: IBUPROFEN 600 MG TABLET (FP) PO PRN ×2 (10:01→21:07)
[2018-08-02] MEDS: PRENATAL VITAMINS W/ FOLIC ACID TABLET (FP) PO SCH (10:01)
[2018-08-02] MEDS: QUEtiapine FUMARATE 200 MG TABLET PO SCH ×2 (10:01→21:06)
[2018-08-02] MEDS: amLODIPine BESYLATE 10 MG TABLET (FP) PO SCH (10:01)
[2018-08-02] MEDS: BUDESONIDE/FORMETEROL FUMARATE 160/4.5 mcg INHALER IH SCH ×2 (10:03→21:04)
--- NOTE | 2018-08-02 16:09 | PN ---
[facility] Progress Note Note: THIS IS MY FIRST ENCOUNTER WITH THIS PATIENT. PT IS SCHEDULED FOR DISCHARGE IN THE MORNING. ALERT O X 3. PT REPORTS HE HAS GALLSTONES THAT HE HAS NOT TAKEN CARE OF AND NEEDS TO DO THAT AFTER HE DISCHARGES TOMORROW. PT MET WITH HIS COUNSELOR ABHI STILL AND HAS BEEN REFERRED BACK TO HIS [facility] ON [address] [place] [address] FOR CD AFTERCARE IN THE SHORT TERM. PT IS ALSO AWAITING BED AVAILABILITY AT [facility] PENDING MEDICAL CLEARANCE OF HIS GALLSTONE ISSUE. PER COUNSELOR ABHI STILL. PT REPORTS HE HAS A PCP, DR. AKBAR ON [address], [place] AND THAT HE HAS HIS OWN MEDS AT HOME. HOWEVER DUE TO THE NUMBER OF HOME MEDICATIONS LISTED BELOW, I CALLED PT'S HOME PHARMACY-[facility] AND THE PHARMACIST VERIFIED PT'S CURRENT MED WHICH INCLUDES THOSE ELECTRONICALLY SENT TO HIS PHARMACY TODAY 08/02. PT IS A POOR HISTORIAN AND HAS BEEN UNABLE TO KEEP TRACT OF HIS CURRENT MEDICATIONS AND HIS MEDICAL APPOINTMENTS. . PT REPORTS HE IS ON LANTUS AND HAS IT AT HOME. THIS DOCTOR OF VETERINARY MEDICINE HAS REMINDED PT TO FOLLOW UP WITH HIS PMD ON 08/03/18 AFTER DISCHARGE FROM REHAB FOR PROPER MEDICAL MANAGEMENT. COURTESY RX FOR 14 DAYS WAS ELECTRONICALLY SENT INTO [facility] TODAY. PT WILL FOLLOW UP WITH PCP EARLIER DOCUMENTED. Home Medications Medication Instructions Recorded Tiotropium [place] [Spiriva] 1 puff IH DAILY 30 Days #30 cap 09/10/17 Albuterol Sulfate Inhaler - 2 inh IH Q4H PRN #1 inh 01/18/18 [Ventolin HFA Inhaler -] Atorvastatin Ca [Lipitor] 20 mg PO HS #14 tablet 01/18/18 Budesonide/Formeterol Fumarate 1 inh PO BID #1 inh 01/18/18 [SYMBICORT 160/4.5mcg -] Ferrous Sulfate [Feosol] 325 mg PO DAILY #30 ud 01/18/18 Losartan Potassium [Cozaar -] 50 mg PO BID #30 tab 01/18/18 Pantoprazole Sodium [Protonix -] 40 mg PO DAILY #14 tablet.ec 01/18/18 Quetiapine Fumarate [Seroquel -] 200 mg PO HS #30 tablet 01/18/18 Sitagliptin Phosphate [Januvia -] 25 mg PO DAILY@0700 #14 tab 01/18/18 Methadone [Dolophine -] 60 mg PO DAILY@0600 05/03/18 Budesonide/Formeterol Fumarate 2 inh PO BID 07/08/18 [SYMBICORT 80/4.5mcg -] Amlodipine Besylate [Norvasc -] 10 mg PO DAILY #14 tablet 08/02/18 Aspirin [Aspirin EC] 81 mg PO DAILY #14 tablet. 08/02/18 Famotidine 20 mg PO BID #60 tab 08/02/18 Hydrochlorothiazide 25 mg PO AM 08/02/18 Lipase/Protease/Amylase [Creon 2 cap PO TIDCM #30 capsule. 08/02/18 6,000 Units Capsule] Tamsulosin HCl [Flomax -] 0.4 mg PO DAILY@0830 #14 cap.er.24h 08/02/18 Home Medications Medication Instructions Recorded Famotidine 20 mg PO BID #60 tab 09/23/16 Tiotropium [place] [Spiriva] 1 puff IH DAILY 30 Days #30 cap 09/10/17 Albuterol Sulfate Inhaler - 2 inh IH Q4H PRN #1 inh 01/18/18 [Ventolin HFA Inhaler -] Amlodipine Besylate [Norvasc -] 10 mg PO DAILY #14 tablet 01/18/18 Aspirin [Aspirin EC] 81 mg PO DAILY #14 tablet. 01/18/18 Atorvastatin Ca [Lipitor] 20 mg PO HS #14 tablet 01/18/18 Budesonide/Formeterol Fumarate 1 inh PO BID #1 inh 01/18/18 [SYMBICORT 160/4.5mcg -] Ferrous Sulfate [Feosol] 325 mg PO DAILY #30 ud 01/18/18 Hydrochlorothiazide 25 mg PO BID #14 tab 01/18/18 Insulin Glargine,Hum.rec.anlog 15 unit SQ HS #1 vial 01/18/18 [Lantus] Losartan Potassium [Cozaar -] 50 mg PO BID #30 tab 01/18/18 Pantoprazole Sodium [Protonix -] 40 mg PO DAILY #14 tablet.ec 01/18/18 Quetiapine Fumarate [Seroquel -] 200 mg PO HS #30 tablet 01/18/18 Sitagliptin Phosphate [Januvia -] 25 mg PO DAILY@0700 #14 tab 01/18/18 Tamsulosin HCl [Flomax -] 0.4 mg PO DAILY@0830 #14 cap.er.24h 01/18/18 Methadone [Dolophine -] 60 mg PO DAILY@0600 05/03/18 Budesonide/Formeterol Fumarate 2 inh PO BID 07/08/18 [SYMBICORT 80/4.5mcg -] Lipase/Protease/Amylase [Shayleeon Dr 2 cap PO TIDCM 07/08/18 6,000 Units Capsule] Vital Signs - 24 hr 08/02/18 08/02/18 08/02/18 00:30 03:30 06:39 Temperature 97.4 F L Pulse Rate 104 H Respiratory 18 18 18 Rate Blood Pressure 154/116 H Laboratory Tests 07/11/18 07/11/18 07/12/18 05:59 16:57 06:08 POC Glucometer 251 202 299 07/12/18 07/13/18 07/13/18 17:04 06:07 16:50 POC Glucometer 381 278 326 07/14/18 07/14/18 07/15/18 05:39 16:35 06:03 POC Glucometer 284 332 255 07/15/18 07/16/18 07/16/18 16:54 05:51 16:44 POC Glucometer 334 344 424 07/17/18 07/17/18 07/18/18 06:04 17:08 06:10 POC Glucometer 254 419 283 07/18/18 07/19/18 07/19/18 16:37 05:59 16:54 POC Glucometer 387 340 460 07/20/18 07/20/18 07/21/18 05:52 16:20 06:02 POC Glucometer 354 387 361 07/21/18 07/22/18 07/22/18 16:28 06:18 17:16 POC Glucometer 359 268 396 07/23/18 07/23/18 07/24/18 05:54 16:59 05:51 POC Glucometer 238 301 267 07/24/18 07/25/18 07/25/18 16:43 06:03 16:46 POC Glucometer 414 207 238 07/26/18 07/26/18 07/27/18 06:06 16:34 06:00 POC Glucometer 298 330 306 07/27/18 07/28/18 07/28/18 16:28 05:51 16:45 POC Glucometer 283 331 303 07/29/18 07/29/18 07/30/18 05:50 16:45 05:42 POC Glucometer 251 228 159 07/30/18 07/31/18 07/31/18 16:45 06:15 16:43 POC Glucometer 259 282 314 08/01/18 08/01/18 08/02/18 05:58 16:35 05:49 POC Glucometer 241 313 309 NAD MEDICALLY STABLE PLAN;FOLOW UP WITH PCP FOR MEDICAL MANAGEMENT AND WORK UP FOR GALLSTONE SX. FOLLOW UP WITH CD AFTERCARE RECOMMENDATION.
[2018-08-02] MEDS: DOCUSATE SODIUM 100 MG CAPSULE (FP) PO SCH (21:06)
[2018-08-02] MEDS: THIAMINE HCL 100 MG TABLET (FP) PO SCH (21:06)
[2018-08-02] MEDS: MELATONIN 5 MG TABLETS PO PRN (21:06)
[2018-08-02] MEDS: NICOTINE POLACRILEX 2 MG GUM BC PRN (21:08)
[2018-08-03] MEDS ORDERED: METHADONE HCL 40 MG DISPERSABLE TABLET ONE (03:48)
[2018-08-03] MEDS ORDERED: METHADONE HCL 10 MG TABLET ONE (03:48)
[2018-08-03] MEDS: CYCLOBENZAPRINE HCL 10 MG TABLET (FP) PO SCH (05:51)
[2018-08-03] MEDS: HYDROCHLOROTHIAZIDE 12.5 MG CAPSULE (FP) PO SCH (05:52)
[2018-08-03] MEDS: METHADONE 40 MG, METHADONE 20 MG PO SCH (05:53)
--- NOTE | 2018-08-03 06:18 | PN ---
S Progress Note Note: Patient is scheduled for discharge today. Script for Seroquel 200 mg po BID is electronically transmitted to [facility] at [address] [place] [id number]
[2018-08-03 06:34] VITALS: BP 151/100; PULSE 95; TEMP 98
[2018-08-03] MEDS: LIPASE/PROTEASE/AMYLASE 6,000 UNIT CAPSULE PO SCH (07:17)
[2018-08-03] MEDS: INSULIN SLIDING SCALE (NOVOLOG) 1 VIAL SQ SCH (07:17)
[2018-08-03] MEDS: TAMSULOSIN HCL 0.4 MG CAP PO SCH (07:18)
[2018-08-03] MEDS ORDERED: INSULIN (NOVOLOG) ASPART 100 UNITS/ML 10ML VIAL ONE (07:41)
== END 2018-08-03 07:40 | disposition home or self-care (01) | DRG 772 ==
LOC: YASAS 19:01 → Y3W 19:02
PROVIDERS: ADMIT Neuromusculoskeletal Medicine & OMM; ATTEND Neuromusculoskeletal Medicine & OMM
PROC: HZ42ZZZ Group Counseling for Substance Abuse Treatment, Cognitive-Behavioral (ICD-10-PCS; principal; 2018-07-10)
DX: F10.20 Alcohol dependence, uncomplicated (principal); F11.20 Opioid dependence, uncomplicated; F13.20 Sedative, hypnotic or anxiolytic dependence, uncomplicated; F17.210 Nicotine dependence, cigarettes, uncomplicated; F19.280 Other psychoactive substance dependence with psychoactive substance-induced anxiety disorder; F19.282 Other psychoactive substance dependence with psychoactive substance-induced sleep disorder; F31.9 Bipolar disorder, unspecified; I10 Essential (primary) hypertension; K21.9 Gastro-esophageal reflux disease without esophagitis; J45.909 Unspecified asthma, uncomplicated; J44.9 Chronic obstructive pulmonary disease, unspecified; N40.0 Benign prostatic hyperplasia without lower urinary tract symptoms; E11.65 Type 2 diabetes mellitus with hyperglycemia; K59.00 Constipation, unspecified; D64.9 Anemia, unspecified; K70.10 Alcoholic hepatitis without ascites; G62.9 Polyneuropathy, unspecified; R94.5 Abnormal results of liver function studies; Z79.4 Long term (current) use of insulin; Z87.19 Personal history of other diseases of the digestive system
CPT/HCPCS: 82962

== ENCOUNTER 2018-10-19 02:19 | Inpatient (IN) | payer OTHER ==
[2018-10-19 03:13] VITALS: BMI 23.6
--- NOTE | 2018-10-19 04:26 | PDOC ---
*Physical Exam - Vital Signs Last Vital Signs Temp Pulse Resp BP Pulse Ox 98.2 F 108 H 19 137/91 98 10/19/18 02:19 10/19/18 02:19 10/19/18 02:19 10/19/18 02:19 10/19/18 02:19 ED Treatment Course - LABORATORY CBC & Chemistry Diagram: 10/19/18 04:55 10/19/18 04:55 Medical Decision Making - Medical Decision Making 10/19/18 04:26 Patient seen by the advanced practice provider under my direct supervision. Ancillary testing reviewed as necessary. I agree with plan as outlined by the advanced practice provider. *DC/Admit/Observation/Transfer Diagnosis at time of Disposition: Alcohol intoxication Qualifiers: Complication of substance-induced condition: uncomplicated Qualified Code(s): F10.920 - Alcohol use, unspecified with intoxication, uncomplicated - Discharge Dispostion Condition at time of disposition: Fair - Referrals - Patient Instructions - Post Discharge Activity
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
[2018-10-19] MEDS ORDERED: FOLIC ACID INJECTION - 1 MG, THIAMINE HCL 100 MG, MULTIVIT INJECTION ADULT 10 ML in SOD... IVPB ONE (04:42)
[2018-10-19 05:21] LABS: HEMATOCRIT 28.7 % (35.4-49); HEMOGLOBIN 9.8 GM/dL (11.7-16.9); LYMPH % 41.2 % (8-40); MCH 32.4 pg (25.7-33.7); MEAN CELL VOLUME 95.2 fl (80-96); MEAN PLT VOLUME 8.1 fl (7.5-11.1); MONO % 6.9 % (3.8-10.2); NEUT % 50.1 % (42.8-82.8); PLATELET COUNT 204 K/MM3 (134-434); RBC 3.01 M/mm3 (4.00-5.60); RDW 15.4 % (11.9-15.9); WHITE BLOOD COUNT 5.2 K/mm3 (4.0-10.0)
[2018-10-19 05:22] LABS: BASO % 0.8 % (0-2.0)
[2018-10-19 05:35] LABS: ALBUMIN 3.7 g/dl (3.4-5.0); BILIRUBIN,TOTAL 0.4 mg/dL (0.2-1); BLOOD UREA NITROGEN 61.9 mg/dL (7-18); CALCIUM 7.9 mg/dL (8.5-10.1); CREATININE 2.3 mg/dL (0.55-1.3); POTASSIUM 3.7 mmol/L (3.5-5.1); TOT PROT 7.4 g/dl (6.4-8.2)
[2018-10-19 06:10] LABS: INR 1.44 (0.83-1.09); PROTHROMBIN TIME (PATIENT) 17.1 SEC (9.7-13.0)
[2018-10-19] MEDS ORDERED: SODIUM CHLORIDE 1,000 ML IV STA (07:04)
--- NOTE | 2018-10-19 07:12 | PDOC ---
*Physical Exam - Vital Signs Last Vital Signs Temp Pulse Resp BP Pulse Ox 98.2 F 108 H 19 137/91 98 10/19/18 02:19 10/19/18 02:19 10/19/18 02:19 10/19/18 02:19 10/19/18 02:19 - Physical Exam General Appearance: Yes: Nourished, Disheveled, Mild Distress, Alcohol on Breath Gastrointestinal/Abdominal: positive: Tender (RUQ), Guarding, Other ((+) murphys sign). negative: Rebound ED Treatment Course - LABORATORY CBC & Chemistry Diagram: 10/19/18 04:55 10/19/18 04:55 - ADDITIONAL ORDERS Additional order review: Laboratory Results 10/19/18 10/19/18 10/19/18 04:55 04:55 04:55 PT with INR INR Sodium 145 Potassium 3.7 Chloride 115 H Carbon Dioxide 21 Anion Gap 8 BUN 61.9 H Creatinine 2.3 H Est GFR (CKD-EPI)AfAm 35.72 Est GFR (CKD-EPI)NonAf 30.82 Random Glucose 112 H Calcium 7.9 L Total Bilirubin 0.4 AST 368 H ALT 369 H Alkaline Phosphatase 160 H Total Protein 7.4 Albumin 3.7 Lipase 114 Salicylates 1.8 L Acetaminophen < 2.0 L Alcohol, Quantitative 192.5 H 10/19/18 04:55 PT with INR 17.10 H INR 1.44 H Sodium Potassium Chloride Carbon Dioxide Anion Gap BUN Creatinine Est GFR (CKD-EPI)AfAm Est GFR (CKD-EPI)NonAf Random Glucose Calcium Total Bilirubin AST ALT Alkaline Phosphatase Total Protein Albumin Lipase Salicylates Acetaminophen Alcohol, Quantitative 10/19/18 04:55 RBC 3.01 L MCV 95.2 MCHC 34.0 RDW 15.4 D MPV 8.1 Neutrophils % 50.1 D Lymphocytes % 41.2 H D Monocytes % 6.9 Eosinophils % 1.0 D Basophils % 0.8 Medical Decision Making - Medical Decision Making 10/19/18 07:34 Sign out received from CARIDAD Harris. Patient is still currently intoxicated however arousable. We will continue to let him metabolize. Labs notable for ANGELO. 2.3 <--1.4; anticipate admission 10/19/18 10:35 Patient is now awake alert and oriented. Able to obtain history. He has past medical history of alcohol abuse, polysubstance abuse, gallstones with stent placement, C. difficile currently taking vancomycin. He admits to abdominal pain today. He states it is worse in the right upper quadrant. He states that he is feels like the pain has been worse since having the stents placed. Admits to vomiting. He is unsure if he has diary as he has not had a bowel movement today. On exam patient is exquisitely tender to the right upper quadrant. We'll order right upper quadrant ultrasound and CT scan to evaluate stent. Dry CT as patient's creatinine is elevated Ofirmev given for pain control. Patient is currently on methadone. Confirmed dose with the [facility] staff. . Pt ID #[id number] Per JEAN MARIE Delcid, patient takes 60 mg of methadone daily. Last medicated . We will give os of methadone now Waiting scan results. 10/19/18 13:35 CT/US show a diliated CBD, possibly chronic however pt with significant RUQ. Will admit patient at this time, for CKD, RUQ pain, alcohol dependence Sign out given to Dr. Hall. *DC/Admit/Observation/Transfer Diagnosis at time of Disposition: ANGELO (acute kidney injury), Methadone maintenance therapy patient, Elevated LFTs Alcohol intoxication Qualifiers: Complication of substance-induced condition: uncomplicated Qualified Code(s): F10.920 - Alcohol use, unspecified with intoxication, uncomplicated - Discharge Dispostion Condition at time of disposition: Fair Decision to Admit order: Yes - Referrals - Patient Instructions - Post Discharge Activity
[2018-10-19] MEDS ORDERED: ACETAMINOPHEN 1000 MG/100 ML VIAL (NON FORMULARY) IVPB ONE (08:52)
[2018-10-19] MEDS ORDERED: ACETAMINOPHEN INJECTION 100 ML IVPB ONE (09:53)
[2018-10-19] MEDS ORDERED: METHADONE HCL 10 MG TABLET (FOR DETOX USE ONLY) PO ONE (10:33)
[2018-10-19] MEDS ORDERED: METHADONE HCL 10 MG TABLET ONE (11:47)
[2018-10-19] MEDS ORDERED: chlordiazePOXIDE HCL 25 MG CAPSULE PO ONE (11:58)
--- NOTE | 2018-10-19 13:17 | PN ---
Teaching Attending Note Name of Resident: Lana Silva ATTENDING PHYSICIAN STATEMENT I saw and evaluated the patient. I reviewed the resident's note and discussed the case with the resident. I agree with the resident's findings and plan as documented with exceptions below. 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 1 month ago, HTN, HLD, NIDDM, CKD stage II (last cr 1.4), recent reported admission for C difficile/ETOH withdrawal, on oral vancomycin (Prescribed on 10/04 but not started yet) was brought in intoxicated to the ED overnight. Patient currently awake and appropriate conversation though vague in description of his prior history. C/o nausea, multiple non bloody vomitus episodes and water diarrhea over last 2-3 days, associated with abdominal pain, more in RUQ/epigastric region. Has been drink 1 -1.5 quart vodka daily, last drink last night. Denies any chest pain, palpitations, dyspnea, dizziness, fevers, chills, dark or bloody stools, cough, sputum, urinary symptoms. reports eating well and good appetite when sober. OBJECTIVE: Vital Signs Period Temp Pulse Resp BP Sys/Lopez Pulse Ox Last 24 Hr 97.6 F-98.2 F 78-108 16- 119-137/77-91 97-98 Intake & Output 10/16/18 10/17/18 10/18/18 10/19/18 23:59 23:59 23:59 23:59 Weight 160 lb GENERAL: Awake, alert, and fully oriented, in no acute distress. HEAD: Normal with no signs of trauma. EYES: Pupils equal, round and reactive to light, extraocular movements intact, sclera anicteric, conjunctiva clear. No lid lag. EARS, NOSE, THROAT: Ears normal, nares patent, oropharynx clear without exudates. Moist mucous membranes. NECK: Soft, supple, no JVD LUNGS: decreased air entry all over, no rales or wheezing HEART: Regular rate and rhythm, normal S1 and S2 ABDOMEN: soft, tenderness in infraumbilical RUQ/epigastric region, Braker's sign difficult to elicit, no voluntary or involuntary guarding or rigidity, pos bowel sounds MUSCULOSKELETAL: Normal range of motion at all joints. No bony deformities or tenderness. No CVA tenderness. UPPER EXTREMITIES: 2+ pulses, warm, well-perfused. No cyanosis. No clubbing. No peripheral edema. Coarse tremors, neg asterexis LOWER EXTREMITIES: 2+ pulses, warm, well-perfused. No calf tenderness. No peripheral edema. Right knee abrasion with no active bleed NEUROLOGICAL: AAox3, power 5/5, sensation intact to light touch, Cranial nerves II-XII intact. Normal speech. Normal gait. PSYCHIATRIC: Cooperative. Good eye contact. Appropriate mood and affect. SKIN: Warm, dry, normal turgor, no rashes or lesions noted, normal capillary refill. Home Medications Medication Instructions Recorded Tiotropium [place] [Spiriva] 1 puff IH DAILY 30 Days #30 cap 09/10/17 Albuterol Sulfate Inhaler - 2 inh IH Q4H PRN #1 inh 01/18/18 [Ventolin HFA Inhaler -] Atorvastatin Ca [Lipitor] 20 mg PO HS #14 tablet 01/18/18 Ferrous Sulfate [Feosol] 325 mg PO DAILY #30 ud 01/18/18 Losartan Potassium [Cozaar -] 50 mg PO BID #30 tab 01/18/18 Pantoprazole Sodium [Protonix -] 40 mg PO DAILY #14 tablet.ec 01/18/18 Quetiapine Fumarate [Seroquel -] 200 mg PO HS #30 tablet 01/18/18 Methadone [Dolophine -] 60 mg PO DAILY@0600 05/03/18 Budesonide/Formeterol Fumarate 2 inh PO BID 07/08/18 [SYMBICORT 80/4.5mcg -] Amlodipine Besylate [Norvasc -] 10 mg PO DAILY #14 tablet 08/02/18 Aspirin [Aspirin EC] 81 mg PO DAILY #14 tablet. 08/02/18 Famotidine 20 mg PO BID #60 tab 08/02/18 Hydrochlorothiazide 25 mg PO AM 08/02/18 Lipase/Protease/Amylase [Erich Camejo 2 cap PO TIDCM #30 capsule. 08/02/18 6,000 Units Capsule] Tamsulosin HCl [Flomax -] 0.4 mg PO DAILY@0830 #14 cap.er.24h 08/02/18 Lisinopril 10 mg PO DAILY 09/30/18 Quetiapine Fumarate [Seroquel -] 200 mg PO DAILY 09/30/18 Tramadol HCl 50 mg PO QID 09/30/18 Vancomycin Oral Solution [Vancocin 250 mg PO QID 10/19/18 *Oral Solution*] Active Medications Lorazepam (Ativan -) 0.5 mg PO Q6H REBECCA Stop: 10/22/18 23:01 Lorazepam (Ativan -) 0.5 mg PO Q4H PRN PRN Reason: Symptoms of Withdrawal Stop: 10/23/18 00:00 Lorazepam (Ativan -) 0.5 mg PO ONCE ONE Stop: 10/23/18 05:01 Lorazepam (Ativan -) 1 mg PO 0500,1100,1700,2300 REBECCA Stop: 10/21/18 23:01 Lorazepam (Ativan -) 1 mg PO Q4H PRN PRN Reason: Symptoms of Withdrawal Stop: 10/21/18 23:59 Thiamine HCl (Vitamin B1 Injection -) 200 mg IVPB ONCE ONE Stop: 10/19/18 13:38 Laboratory Results - last 24 hr 10/19/18 10/19/18 10/19/18 04:55 04:55 04:55 WBC 5.2 RBC 3.01 L Hgb 9.8 L Hct 28.7 L MCV 95.2 MCH 32.4 MCHC 34.0 RDW 15.4 D Plt Count 204 MPV 8.1 Absolute Neuts (auto) 2.6 Neutrophils % 50.1 D Lymphocytes % 41.2 H D Monocytes % 6.9 Eosinophils % 1.0 D Basophils % 0.8 Nucleated RBC % 0 PT with INR 17.10 H INR 1.44 H Sodium 145 Potassium 3.7 Chloride 115 H Carbon Dioxide 21 Anion Gap 8 BUN 61.9 H Creatinine 2.3 H Est GFR (CKD-EPI)AfAm 35.72 Est GFR (CKD-EPI)NonAf 30.82 Random Glucose 112 H Calcium 7.9 L Total Bilirubin 0.4 AST 368 H ALT 369 H Alkaline Phosphatase 160 H Total Protein 7.4 Albumin 3.7 Lipase Salicylates Acetaminophen Alcohol, Quantitative 10/19/18 10/19/18 04:55 04:55 WBC RBC Hgb Hct MCV MCH MCHC RDW Plt Count MPV Absolute Neuts (auto) Neutrophils % Lymphocytes % Monocytes % Eosinophils % Basophils % Nucleated RBC % PT with INR INR Sodium Potassium Chloride Carbon Dioxide Anion Gap BUN Creatinine Est GFR (CKD-EPI)AfAm Est GFR (CKD-EPI)NonAf Random Glucose Calcium Total Bilirubin AST ALT Alkaline Phosphatase Total Protein Albumin Lipase 114 Salicylates 1.8 L Acetaminophen < 2.0 L Alcohol, Quantitative 192.[address] a/p/RUQ US results reviewed EKG NSR, QTc 472 ASSESSMENT AND PLAN: 53 yom with pMhx of ETOH abuse, with multiple admissions to detox, 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 1 month ago, HTN, HLD, NIDDM, CKD stage II (last cr 1.4), recent reported admission for C difficile/ETOH withdrawal, on oral vancomycin (Prescribed on 10/04 but not started yet) brought in with ETOH intoxication found with ANGELO, abnormal LFts, Nausea/vomitting/abdominal pain. -Abdominal pain, r/o alcoholic hepatitis/gastritis/acute on chronic pancreatitis vs biliary obstruction (no h/o gall stones), less likely C difficile colitis -Abnormal LFTS, acute on chronic worsening, ?ETOH hepatitis, r/o biliary etiology -Recent C difficile diarrhea, non compliant with treatment -ANGELO, suspect from ongoing ETOH use with poor oral intake/vomiting/diarrhea, +/ - ?ACEi?ARB -Chronic CBD dilatation s/p reported stent at [facility] 1 month ago -ALcohol abuse/dependence -Prior heroine/cocaine abuse on methadone -HTN -HLD -NIDDM Plan: Aggressive hydration, repeat labs. Chronically elevated LFTs, DF 33, hold off on steroids. PPI IV BID, NPO, zofran. MRCP. Serial abdominal exams, monitor for infection concerns. GI consult. Per pharmacy patient prescribed both ?ACEI/ARB, hold for now Avoid nephrotoxins. Monitor renal function. Ativan protocol given abnormal LFTs. Detox consult. Resume oral vancomycin. Repeat Stool C difficile. Continue norvasc/creon/methadone/seroquel. Hold statin. ISS. Retrieve further info about recent stent and C difficile. DVTPPX, SCDs for now, heparin in 24 hours pending clinical course. Dispo Admit to med surg. Will need to address possible transfer to [facility] if LFTs worsening, ongoing obstructive concerns on MRI Plan discussed with patient in detail, all questions answered Care co-ordinated with ED total admit time 65 min.
[2018-10-19] MEDS ORDERED: chlordiazePOXIDE HCL 25 MG CAPSULE ONE (13:20)
[2018-10-19] MEDS ORDERED: LORazepam 1 MG TABLET PO PRN (13:28)
[2018-10-19] MEDS ORDERED: PANTOPRAZOLE SODIUM 40 MG VIAL IVPUSH SCH (13:45)
[2018-10-19] MEDS ORDERED: THIAMINE HCL 200 MG/2 ML VIAL IVPB ONE (13:50)
[2018-10-19] MEDS ORDERED: THIAMINE HCL 200 MG/2 ML VIAL ONE (13:56)
[2018-10-19] MEDS ORDERED: PANTOPRAZOLE SODIUM 40 MG/100 ML BAG IVPB ONE (13:57)
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
[2018-10-19] MEDS ORDERED: ALBUTEROL SO4 8 GM HFA INHALER IH PRN (14:06)
[2018-10-19] MEDS ORDERED: FERROUS SO4 325 MG TABLET (FP) PO SCH (14:15)
[2018-10-19] MEDS ORDERED: ASPIRIN COATED 81 MG TABLET.EC PO SCH (14:15)
[2018-10-19] MEDS ORDERED: amLODIPine BESYLATE 10 MG TABLET (FP) PO SCH (14:15)
[2018-10-19] MEDS ORDERED: METHADONE HCL 40 MG DISPERSABLE TABLET PO SCH (14:15)
[2018-10-19] MEDS ORDERED: LISINOPRIL 10 MG TABLET (FP) PO SCH (14:15)
[2018-10-19] MEDS ORDERED: ASPIRIN COATED 81 MG TABLET.EC ONE (14:24)
[2018-10-19] MEDS ORDERED: amLODIPine BESYLATE 5 MG TABLET (FP) ONE (14:25)
[2018-10-19] MEDS ORDERED: LISINOPRIL 20 MG TABLET (FP) ONE (14:25)
[2018-10-19] MEDS ORDERED: FERROUS SO4 325 MG TABLET (FP) ONE (14:25)
[2018-10-19] MEDS ORDERED: traMADol HCL 50 MG TABLET PO PRN ×2 (14:28→18:00)
[2018-10-19 14:33] LABS: PHOSPHOROUS 2.7 mg/dL (2.5-4.9)
[2018-10-19 14:36] LABS: ALBUMIN 3.9 g/dl (3.4-5.0); BILIRUBIN,DIRECT 0.3 mg/dL (0.0-0.2); BILIRUBIN,TOTAL 0.7 mg/dL (0.2-1); BLOOD UREA NITROGEN 49.4 mg/dL (7-18); CALCIUM 7.7 mg/dL (8.5-10.1); POTASSIUM 3.8 mmol/L (3.5-5.1); TOT PROT 7.7 g/dl (6.4-8.2)
[2018-10-19] MEDS ORDERED: FOLIC ACID 1 MG TABLET (FP) PO SCH (14:45)
[2018-10-19] MEDS ORDERED: NICOTINE 21 MG/24 HOURS TOPICAL PATCH TD SCH (14:45)
[2018-10-19] MEDS ORDERED: DEXTROSE 5%-LACTATED RINGERS 1,000 ML IV SCH (14:45)
[2018-10-19] MEDS ORDERED: LIPASE/PROTEASE/AMYLASE 6,000 UNIT CAPSULE PO SCH (17:30)
--- NOTE | 2018-10-19 17:52 | DS ---
Physical Examination Vital Signs: Vital Signs Temperature 98.2 F 10/19/18 14:45 Pulse Rate 76 10/19/18 14:45 Respiratory Rate 18 10/19/18 14:45 Blood Pressure 108/65 10/19/18 14:45 O2 Sat by Pulse Oximetry (%) 98 10/19/18 14:45 Pt is a 53 yo M with PMHx of DM (not in meds), GERD, HTN, pancreatitis, hepatitis, COPD, recent cdiff diagnosis (October 04) on vancomycin presenting after being picked up by [facility], found to have nausea, vomiting and diarrhea , in alcohol withdrawal and with chronically dilated CBD, chronic pancreatitis , abdominal pain , ANGELO, elevated LFTs. Found in ED to have worsening LFTS, in alcohol withdrawal, elevated CPK, with positive fecal occult, and possible stents for RUQ pain. Pt was transferred to a tertiary center for higher level of care. Labs: CBC, BMP 10/19/18 04:55 10/19/18 14:00 Discharge Summary Reason For Visit: ACUTE KIDNEY INJURY Current Active Problems ANGELO (acute kidney injury) (Acute) Alcohol intoxication (Acute) Elevated LFTs (Chronic) Methadone maintenance therapy patient (Chronic) Condition: Worsened - Instructions Disposition: TRANSFER ACUTE CARE/OTHER HOSP - Home Medications Comprehensive Discharge Medication List: Ambulatory Orders Albuterol Sulfate Inhaler - [Ventolin HFA Inhaler -] 2 inh IH Q4H PRN #1 inh 11/28 Atorvastatin Ca [Lipitor] 20 mg PO HS #14 tablet 01/18/18 Ferrous Sulfate [Feosol] 325 mg PO DAILY #30 ud 01/18/18 Pantoprazole Sodium [Protonix -] 40 mg PO DAILY #14 tablet.ec 01/18/18 Quetiapine Fumarate [Seroquel -] 200 mg PO HS #30 tablet 01/18/18 Methadone [Dolophine -] 60 mg PO DAILY@0600 05/03/18 Budesonide/Formeterol Fumarate [SYMBICORT 80/4.5mcg -] 2 inh PO BID 07/08/18 Amlodipine Besylate [Norvasc -] 10 mg PO DAILY #14 tablet 08/02/18 Aspirin [Aspirin EC] 81 mg PO DAILY #14 tablet. 08/02/18 Lipase/Protease/Amylase [Erich Camejo 6,000 Units Capsule] 2 cap PO TIDCM #30 capsule. 08/02/18 Tamsulosin HCl [Flomax -] 0.4 mg PO DAILY@0830 #14 cap.er.24h 08/02/18 Lisinopril 20 mg PO DAILY 09/30/18 Tramadol HCl 50 mg PO QID 09/30/18 Famotidine 20 mg PO DAILY 10/19/18 Vancomycin Oral Solution [Vancocin *Oral Solution*] 250 mg PO QID 10/19/18 This patient is new to me today: Yes Date on this admission: 10/19/18 Emergency Visit: Yes ED Registration Date: 10/19/18 Care time: The patient presented to the Emergency Department on the above date and was hospitalized for further evaluation of their emergent condition. Critical Care patient: No - Discharge Referral Referred to [facility] No ATTENDING PHYSICIAN STATEMENT I saw and evaluated the patient. I reviewed the resident's note and discussed the case with the resident. I agree with the resident's findings and plan as documented. SUBJECTIVE: OBJECTIVE: ASSESSMENT AND PLAN:
[2018-10-19] MEDS ORDERED: VANCOMYCIN 250 MG/5 ML ORAL SOLUTION PO SCH ×2 (18:00)
--- NOTE | 2018-10-19 19:07 | CON.GI ---
Consult Consult Specialty:: GI Referred by:: Hospitalist Service Reason for Consultation:: Abnormal LFTs - History of Present Illness Chief Complaint: "I was drunk" History of Present Illness: 53M brought in by [facility] secondary to intoxication. Noted to have ablood alcohol level. Lives in [place]. Has had multiple attempts at ETOH detox. Asked to evaluated abnormal LFTs. He describes chronic RUQ pain. he describes a prolonged hospitalization at [facility] at which time "stents were placed because they thought it was from stones". He cannot give any other details and believes that was 2-3 months ago. he also states that he has been treated for C. diff and that his PMD is a friend of his and recently prescribed PO vancocin. He also thinks that his PMD gives him creon. he describes diarrhea. He believes that he had a colonoscopy 1 year ago that was OK. There is no family history of colorectal cancer / liver disease / pancreatic cancer. CT raised question of gallstones and Abd US failed to reveal stones and revealed a chronically dilated CBD of 8-9mm that appeared unchanged from a 2017 US. Transaminases are elevated as is CPK and ALP. He was negative for HCV 12/29. In review of [facility] it appears as though LFTs have been chronically elevated. He is laying in his bed watching TV comfortably. - History Source History Provided By: Patient, Medical Record Limitations to Obtaining History: Poor Historian - Past Medical History Cardio/Vascular: Yes: HTN Pulmonary: Yes: COPD Renal/: Yes: Renal Inusuff Psych: Yes: Addictions (ETOH) - Past Surgical History Past Surgical History: Yes: Appendectomy - Alcohol/Substance Use Hx Alcohol Use: Yes History of Substance Use: reports: Cocaine (Ex intranasal cocaine), Heroin (Ex intranasal heroin), Marijuana - Smoking History Smoking history: Current some day smoker Have you smoked in the past 12 months: Yes Aproximately how many cigarettes per day: 7 - Social History Usual Living Arrangement: Alone ADL: Independent Occupation: Unemployed Place of : [facility] Home Medications - Allergies Allergies/Adverse Reactions: Allergies Allergy/AdvReac Type Severity Reaction Status Date / Time No Known Allergies Allergy Verified 10/19/18 02:55 - Home Medications Home Medications: Ambulatory Orders Albuterol Sulfate Inhaler - [Ventolin HFA Inhaler -] 2 inh IH Q4H PRN #1 inh 11/28 Atorvastatin Ca [Lipitor] 20 mg PO HS #14 tablet 01/18/18 Ferrous Sulfate [Feosol] 325 mg PO DAILY #30 ud 01/18/18 Pantoprazole Sodium [Protonix -] 40 mg PO DAILY #14 tablet.ec 01/18/18 Quetiapine Fumarate [Seroquel -] 200 mg PO HS #30 tablet 01/18/18 Methadone [Dolophine -] 60 mg PO DAILY@0600 05/03/18 Budesonide/Formeterol Fumarate [SYMBICORT 80/4.5mcg -] 2 inh PO BID 07/08/18 Amlodipine Besylate [Norvasc -] 10 mg PO DAILY #14 tablet 08/02/18 Aspirin [Aspirin EC] 81 mg PO DAILY #14 tablet. 08/02/18 Lipase/Protease/Amylase [Erich Camejo 6,000 Units Capsule] 2 cap PO TIDCM #30 capsule. 08/02/18 Tamsulosin HCl [Flomax -] 0.4 mg PO DAILY@30 #14 cap.er.24h 08/02/18 Lisinopril 20 mg PO DAILY 09/30/18 Tramadol HCl 50 mg PO QID 09/30/18 Famotidine 20 mg PO DAILY 10/19/18 Vancomycin Oral Solution [Vancocin *Oral Solution*] 250 mg PO QID 10/19/18 Family Disease History - Family Disease History Family Disease History: Diabetes: Grandparent, Mother ( DM type 2,hx etoh), Other: Father (, renal, heroin), Mother, Sister (one sister , alive, obese), Daughter (alive, healthy) Other Family History: No family history of colorectal cancer or other GI malignancy Review of Systems - Review of Systems Constitutional: denies: Chills Cardiovascular: denies: Chest Pain Respiratory: reports: Wheezing (Chronic) Gastrointestinal: reports: Abdominal Pain (chronic), Diarrhea, Vomiting ( resolved. occurred prior to admission). denies: Melena, Rectal Bleeding Physical Exam-GI Vital Signs: Vital Signs Temperature 98.2 F 10/19/18 14:45 Pulse Rate 76 10/19/18 14:45 Respiratory Rate 18 10/19/18 14:45 Blood Pressure 108/65 10/19/18 14:45 O2 Sat by Pulse Oximetry (%) 98 10/19/18 14:45 Constitutional: Yes: Calm Eyes: No: Sclera Icterus Cardiovascular: Yes: Regular Rate and Rhythm. No: Murmur Respiratory: Yes: Wheezes (mild exp wheezing bilaterally) Gastrointestinal Inspection: Yes: Scars (RLQ and abdominal wall striae) ...Auscultate: Yes: Normoactive Bowel Sounds ...Palpate: Yes: Soft, Tenderness (TTP RUQ) ...Percussion: No: Tympanitic Extremities: Yes: Other (right knee abrasion that was dressed) Edema: Yes Edema: LLE: 1+, RLE: 1+ Neurological: Yes: Alert Labs: CBC, BMP 10/19/18 04:55 10/19/18 14:00 INR, PTT INR 1.44 (0.83-1.09) H 10/19/18 04:55 Hepatic Panel Total Bilirubin 0.7 mg/dL (0.2-1) 10/19/18 14:00 Direct Bilirubin 0.3 mg/dL (0.0-0.2) H 10/19/18 14:00 AST 452 U/L (15-37) H 10/19/18 14:00 ALT 414 U/L (13-61) H 10/19/18 14:00 Alkaline Phosphatase 175 U/L (45-117) H 10/19/18 14:00 Albumin 3.9 g/dl (3.4-5.0) 10/19/18 14:00 Imaging - Results Cat Scan: Report Reviewed, Image Reviewed (no biliary stents noted) Ultrasound: Report Reviewed Problem List - Problems (1) Elevated LFTs Assessment/Plan: Likely multifactorial including acute alcohol intoxication, chronic liver disease, ? component of rhabdo given elevated CPK. Unclear significance of chronically dilated CBD. he alludes to ? recent ERCP with stent placement (? removal, however he has no recollection of this). Also with chronic calcific pancreatitis: Advise: NPO except meds IV hydration IV Abx for potential biliary coverage (ie zosyn) Evaluatiojn of elevated CPK per primary team MRCP ordered by primary team Avoid prolonged PPI use in setting of recurrent C. Diff Screening hepatitis serologies ordered for AM Avoid hepatotoxic agents Monitor LFTs Advised the need for complete alcohol cessation Patient may be transferred to tertiary care center for further evaluation given previous biliary interventions / possible need for further interventions, which Mr. Whitmore is amenable with. ([facility] per Mr. Whitmore's nurse) Will need further evaluation of anemia and guaiac positive stool when acute issues resolved Code(s): R94.5 - ABNORMAL RESULTS OF LIVER FUNCTION STUDIES
[2018-10-19] MEDS ORDERED: QUEtiapine FUMARATE 200 MG TABLET PO SCH (22:00)
[2018-10-19] MEDS ORDERED: HEPARIN NA (PORCINE) 5,000 UNITS/ML 1ML VIAL SQ SCH (22:00)
[2018-10-20] MEDS ORDERED: QUEtiapine FUMARATE 100 MG TABLET (FP) ONE (00:42)
[2018-10-20] MEDS ORDERED: LORazepam 2 MG/ML SDV VIAL ONE (00:42)
[2018-10-20] MEDS ORDERED: HEPARIN NA (PORCINE) 5,000 UNITS/ML 1ML VIAL ONE (00:43)
[2018-10-20 00:54] VITALS: BP 128/80; PULSE 75; TEMP 98.4
[2018-10-20] MEDS ORDERED: TAMSULOSIN HCL 0.4 MG CAP PO SCH (08:30)
--- NOTE | 2018-10-20 08:31 | EKG ---
Test Reason : Blood Pressure : / mmHG Vent. Rate : 080 BPM Atrial Rate : 080 BPM P-R Int : 166 ms QRS Dur : 078 ms QT Int : 410 ms P-R-T Axes : -01 013 021 degrees QTc Int : 472 ms POOR DATA QUALITY, INTERPRETATION MAY BE ADVERSELY AFFECTED NORMAL SINUS RHYTHM NORMAL ECG WHEN COMPARED WITH ECG OF 07-JUL-2018 08:06, NO SIGNIFICANT CHANGE WAS FOUND Confirmed by THEODORE GARY, PAULETTE ([id number]) on 10/20/2018 8:31:08 AM Referred By: Confirmed By:PAULETTE JAIMES MD
--- NOTE | 2018-10-20 09:09 | PN ---
Physical Exam: SUBJECTIVE: Patient seen and examined OBJECTIVE: Vital Signs Period Temp Pulse Resp BP Sys/Lopez Pulse Ox Last 24 Hr 98 F-98.4 F 75-84 18-19 108-128/65-80 97-99 GENERAL: The patient is awake, alert, and fully oriented, in no acute distress. HEAD: Normal with no signs of trauma. EYES: PERRL, extraocular movements intact, sclera anicteric, conjunctiva clear. No ptosis. ENT: Ears normal, nares patent, oropharynx clear without exudates, moist mucous membranes. NECK: Trachea midline, full range of motion, supple. LUNGS: Breath sounds equal, clear to auscultation bilaterally, no wheezes, no crackles, no accessory muscle use. HEART: Regular rate and rhythm, S1, S2 without murmur, rub or gallop. ABDOMEN: Soft, nontender, nondistended, normoactive bowel sounds, no guarding, no rebound, no hepatosplenomegaly, no masses. EXTREMITIES: 2+ pulses, warm, well-perfused, no edema. NEUROLOGICAL: Cranial nerves II through XII grossly intact. Normal speech, gait not observed. PSYCH: Normal mood, normal affect. SKIN: Warm, dry, normal turgor, no rashes or lesions noted Laboratory Results - last 24 hr 10/19/18 10/19/18 10/19/18 13:07 14:00 14:00 Sodium 144 Potassium 3.8 Chloride 116 H Carbon Dioxide 21 Anion Gap 8 BUN 49.4 H Creatinine 2.0 H Est GFR (CKD-EPI)AfAm 42.29 Est GFR (CKD-EPI)NonAf 36.49 Random Glucose 190 H Calcium 7.7 L Phosphorus 2.7 Magnesium 2.0 Total Bilirubin 0.7 Direct Bilirubin 0.3 H GGT 429 H AST 452 H ALT 414 H Alkaline Phosphatase 175 H Creatine Kinase 356 H Creatine Kinase Index 0.7 CK-MB (CK-2) 2.7 Total Protein 7.7 Albumin 3.9 Stool Occult Blood Positive Active Medications Generic Name Dose Route Start Last Admin Trade Name Freq PRN Reason Stop Dose Admin Albuterol Sulfate 2 puff 10/19/18 14:06 Ventolin Hfa Inhaler - IH Q4H PRN SHORT OF BREATH/WHEEZING Amlodipine Besylate 10 mg 10/19/18 14:15 10/19/18 14:47 Norvasc - PO 10 mg DAILY REBECCA Administration Aspirin 81 mg 10/19/18 14:15 10/19/18 14:47 Ecotrin - PO 81 mg DAILY REBECCA Administration Ferrous Sulfate 325 mg 10/19/18 14:15 10/19/18 14:47 Feosol - PO 325 mg DAILY REBECCA Administration Folic Acid 1 mg 10/19/18 14:45 10/19/18 16:40 Folic Acid - PO 1 mg DAILY REBECCA Administration Heparin Sodium (Porcine) 5,000 unit 10/19/18 22:00 10/19/18 23:52 Heparin - SQ 5,000 unit TID REBECCA Administration Dextrose/Lactated Ringer's 1,000 mls @ 100 mls/hr 10/19/18 14:45 10/19/18 16: 41 D5-Lr - IV 100 mls/hr ASDIR REBECCA Administration Lisinopril 20 mg 10/19/18 14:15 10/19/18 14:47 Prinivil PO 20 mg DAILY REBECCA Administration Lorazepam 0.5 mg 10/22/18 05:00 Ativan - PO 10/22/18 23:01 Q6H REBECCA Lorazepam 0.5 mg 10/22/18 00:00 Ativan - PO 10/23/18 00:00 Q4H PRN Symptoms of Withdrawal Lorazepam 0.5 mg 10/23/18 05:00 Ativan - PO 10/23/18 05:01 ONCE ONE Lorazepam 1 mg 10/21/18 05:00 Ativan - PO 10/21/18 23:01 0500,1100,1700,2300 REBECCA Lorazepam 1 mg 10/19/18 13:28 Ativan - PO 10/21/18 23:59 Q4H PRN Symptoms of Withdrawal Methadone HCl 60 mg 10/19/18 14:15 Dolophine - PO DAILY@0600 REBECCA Nicotine 21 mg 10/19/18 14:45 10/19/18 16:40 Nicoderm Patch - TD 21 mg DAILY REBECCA Administration Pancrelipase 2 cap 10/19/18 17:30 10/19/18 16:[address] 6,000 Units Capsule PO 2 cap TIDCM REBECCA Administration Pantoprazole Sodium 40 mg 10/20/18 10:00 Protonix - PO DAILY [facility] Quetiapine Fumarate 200 mg 10/19/18 22:00 10/19/18 23:52 Seroquel - PO 200 mg HS [facility] Administration Tamsulosin HCl 0.4 mg 10/20/18 08:30 Flomax - PO DAILY@0830 [facility] Thiamine HCl 100 mg 10/20/18 10:00 Vitamin B1 - PO DAILY [facility] Tramadol HCl 50 mg 10/19/18 14:28 Ultram - PO QID PRN PAIN LEVEL 6-10 Vancomycin HCl 250 mg 10/19/18 18:00 10/19/18 17:53 Vancomycin Oral Solution PO 250 mg Q6HPO [facility] Administration Current Medications Albuterol Sulfate (Ventolin Hfa Inhaler -) 2 puff IH Q4H PRN PRN Reason: SHORT OF BREATH/WHEEZING Amlodipine Besylate (Norvasc -) 10 mg PO DAILY [facility] Last Admin: 10/19/18 14:47 Dose: 10 mg Aspirin (Ecotrin -) 81 mg PO DAILY [facility] Last Admin: 10/19/18 14:47 Dose: 81 mg Ferrous Sulfate (Feosol -) 325 mg PO DAILY [facility] Last Admin: 10/19/18 14:47 Dose: 325 mg Folic Acid (Folic Acid -) 1 mg PO DAILY [facility] Last Admin: 10/19/18 16:40 Dose: 1 mg Heparin Sodium (Porcine) (Heparin -) 5,000 unit SQ TID [facility] Last Admin: 10/19/18 23:52 Dose: 5,000 unit Dextrose/Lactated Ringer's (D5-Lr -) 1,000 mls @ 100 mls/hr IV ASDIR [facility] Last Admin: 10/19/18 16:41 Dose: 100 mls/hr Lisinopril (Prinivil) 20 mg PO DAILY [facility] Last Admin: 10/19/18 14:47 Dose: 20 mg Lorazepam (Ativan -) 0.5 mg PO Q6H [facility] Stop: 10/22/18 23:01 Lorazepam (Ativan -) 0.5 mg PO Q4H PRN PRN Reason: Symptoms of Withdrawal Stop: 10/23/18 00:00 Lorazepam (Ativan -) 0.5 mg PO ONCE ONE Stop: 10/23/18 05:01 Lorazepam (Ativan -) 1 mg PO 0500,1100,1700,2300 [facility] Stop: 10/21/18 23:01 Lorazepam (Ativan -) 1 mg PO Q4H PRN PRN Reason: Symptoms of Withdrawal Stop: 10/21/18 23:59 Methadone HCl (Dolophine -) 60 mg PO DAILY@0600 [facility] Nicotine (Nicoderm Patch -) 21 mg TD DAILY [facility] Last Admin: 10/19/18 16:40 Dose: 21 mg Pancrelipase (Erich Camejo 6,000 Units Capsule) 2 cap PO TIDCM [facility] Last Admin: 10/19/18 16:45 Dose: 2 cap Pantoprazole Sodium (Protonix -) 40 mg PO DAILY [facility] Quetiapine Fumarate (Seroquel -) 200 mg PO HS [facility] Last Admin: 10/19/18 23:52 Dose: 200 mg Tamsulosin HCl (Flomax -) 0.4 mg PO DAILY@0830 [facility] Thiamine HCl (Vitamin B1 -) 100 mg PO DAILY [facility] Tramadol HCl (Ultram -) 50 mg PO QID PRN PRN Reason: PAIN LEVEL 6-10 Vancomycin HCl (Vancomycin Oral Solution) 250 mg PO Q6HPO [facility] Last Admin: 10/19/18 17:53 Dose: 250 mg Ambulatory Orders Albuterol Sulfate Inhaler - [Ventolin HFA Inhaler -] 2 inh IH Q4H PRN #1 inh 11/28 Atorvastatin Ca [Lipitor] 20 mg PO HS #14 tablet 01/18/18 Ferrous Sulfate [Feosol] 325 mg PO DAILY #30 ud 01/18/18 Pantoprazole Sodium [Protonix -] 40 mg PO DAILY #14 tablet.ec 01/18/18 Quetiapine Fumarate [Seroquel -] 200 mg PO HS #30 tablet 01/18/18 Methadone [Dolophine -] 60 mg PO DAILY@0600 05/03/18 Budesonide/Formeterol Fumarate [SYMBICORT 80/4.5mcg -] 2 inh PO BID 07/08/18 Amlodipine Besylate [Norvasc -] 10 mg PO DAILY #14 tablet 08/02/18 Aspirin [Aspirin EC] 81 mg PO DAILY #14 tablet. 08/02/18 Lipase/Protease/Amylase [Erich Camejo 6,000 Units Capsule] 2 cap PO TIDCM #30 capsule. 08/02/18 Tamsulosin HCl [Flomax -] 0.4 mg PO DAILY@0830 #14 cap.er.24h 08/02/18 Lisinopril 20 mg PO DAILY 09/30/18 Tramadol HCl 50 mg PO QID 09/30/18 Famotidine 20 mg PO DAILY 10/19/18 Vancomycin Oral Solution [Vancocin *Oral Solution*] 250 mg PO QID 10/19/18 ASSESSMENT/PLAN: ATTENDING PHYSICIAN STATEMENT I saw and evaluated the patient. I reviewed the resident's note and discussed the case with the resident. I agree with the resident's findings and plan as documented. SUBJECTIVE: OBJECTIVE: ASSESSMENT AND PLAN:
[2018-10-20] MEDS ORDERED: PANTOPRAZOLE 40 MG TABLET (FP) PO SCH (10:00)
[2018-10-20] MEDS ORDERED: THIAMINE HCL 100 MG TABLET (FP) PO SCH (10:00)
[2018-10-21] MEDS ORDERED: LORazepam 1 MG TABLET PO SCH (05:00)
[2018-10-22] MEDS ORDERED: LORazepam 0.5 MG TABLET PO PRN
[2018-10-22] MEDS ORDERED: LORazepam 0.5 MG TABLET PO SCH (05:00)
[2018-10-23] MEDS ORDERED: LORazepam 0.5 MG TABLET PO ONE (05:00)
== END 2018-10-20 00:35 | disposition short-term general hospital (02) | DRG 469 ==
LOC: JER 02:19 → JERBED 12:10
PROVIDERS: ADMIT Hospitalist; ATTEND Internal Medicine
DX: N17.9 Acute kidney failure, unspecified (principal); E11.22 Type 2 diabetes mellitus with diabetic chronic kidney disease; K86.0 Alcohol-induced chronic pancreatitis; K83.8 Other specified diseases of biliary tract; F11.20 Opioid dependence, uncomplicated; K75.9 Inflammatory liver disease, unspecified; R16.0 Hepatomegaly, not elsewhere classified; I12.9 Hypertensive chronic kidney disease with stage 1 through stage 4 chronic kidney disease, or unspecified chronic kidney disease; N18.2 Chronic kidney disease, stage 2 (mild); R74.8 Abnormal levels of other serum enzymes; F10.120 Alcohol abuse with intoxication, uncomplicated; K21.9 Gastro-esophageal reflux disease without esophagitis; J44.9 Chronic obstructive pulmonary disease, unspecified; E78.5 Hyperlipidemia, unspecified; F17.210 Nicotine dependence, cigarettes, uncomplicated; F12.10 Cannabis abuse, uncomplicated; S80.211A Abrasion, right knee, initial encounter; X58.XXXA Exposure to other specified factors, initial encounter; Y93.89 Activity, other specified; Y92.89 Other specified places as the place of occurrence of the external cause; Y99.8 Other external cause status; K57.30 Diverticulosis of large intestine without perforation or abscess without bleeding; Z59.0 Homelessness; R19.7 Diarrhea, unspecified; K29.20 Alcoholic gastritis without bleeding; E86.0 Dehydration; K92.1 Melena
CPT/HCPCS: 36415; 74176-TC; 76705-TC; 80048; 80053; 80076; 80307; 82272; 82550; 82553; 82977; 83690; 83735; 84100; 85025; 85610; 93005; 93010; 99285-25; J0131; J1644; J7030

== ENCOUNTER 2018-11-09 12:11 | Inpatient (IN) | payer OTHER ==
[2018-11-09 14:28] VITALS: BMI 25.8
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
--- NOTE | 2018-11-09 16:09 | PN ---
Teaching Attending Note Name of Resident: Deborah Samuel ATTENDING PHYSICIAN STATEMENT I saw and evaluated the patient. I reviewed the resident's note and discussed the case with the resident. I agree with the resident's findings and plan as documented. SUBJECTIVE: 53yo h/o HTN, DM, on meds. Here for detox from alcohol use. Drinks a quart drink of vodka a day. opioid use- on methadone 60mg/day, last dose today, xanax: pt does not know exact quantity OBJECTIVE: Vital Signs - 24 hr 11/09/18 14:03 Temperature 97.8 F Pulse Rate 84 Respiratory 18 Rate Blood Pressure 129/90 resp wheezing lethargic ASSESSMENT AND PLAN: pt to be admitted for alcohol/benzo use disorder- valium detox continue methadone MAT
[2018-11-09] MEDS ORDERED: ACETAMINOPHEN 325 MG TABLET (FP) PO PRN ×2 (16:26)
[2018-11-09] MEDS ORDERED: MENTHOL/PHENOL 1 EACH UD MM PRN (16:26)
[2018-11-09] MEDS ORDERED: BISMUTH SUBSALICYLATE 524 MG/30 ML UD PO PRN (16:26)
[2018-11-09] MEDS ORDERED: MAG HYDROX/AL HYDROX/SIMETH 30 ML UNIT-DOSE CUP PO PRN (16:26)
[2018-11-09] MEDS ORDERED: IBUPROFEN 400 MG TABLET (FP) PO PRN (16:26)
[2018-11-09] MEDS ORDERED: MAGNESIUM HYDROX 2400MG/30ML ORAL SUSPENSION 30 ML CUP PO PRN (16:26)
[2018-11-09] MEDS ORDERED: hydrOXYzine HCL 25 MG TABLET (FP) PO PRN (16:26)
[2018-11-09] MEDS ORDERED: METHOCARBAMOL 500 MG TABLET PO PRN (16:26)
[2018-11-09] MEDS ORDERED: diazePAM 5 MG TABLET PO PRN (16:26)
[2018-11-09] MEDS ORDERED: MAGNESIUM CITRATE 300 ML BOTTLE PO PRN (16:26)
[2018-11-09] MEDS ORDERED: ALBUTEROL SO4 8 GM HFA INHALER IH PRN ×2 (17:09→18:32)
[2018-11-09] MEDS ORDERED: ALBUTEROL SO4 0.083% IH SOL 2.5 MG/3 ML VIAL.NEB. NEB PRN (17:11)
[2018-11-09] MEDS: NICOTINE 21 MG/24 HOURS TOPICAL PATCH TD SCH (17:43)
[2018-11-09] MEDS: VANCOMYCIN 250 MG/5 ML ORAL SOLUTION PO SCH ×2 (20:39→23:04)
[2018-11-09] MEDS ORDERED: QUEtiapine FUMARATE 200 MG TABLET PO SCH (22:00)
[2018-11-09] MEDS ORDERED: LIPASE/PROTEASE/AMYLASE 6,000 UNIT CAPSULE PO SCH (22:00)
[2018-11-09] MEDS: THIAMINE HCL 100 MG TABLET (FP) PO SCH (23:03)
[2018-11-09] MEDS: diazePAM 5 MG TABLET PO SCH (23:03)
[2018-11-09] MEDS: BUDESONIDE/FORMETEROL FUMARATE 80/4.5 mcg INHALER IH SCH (23:03)
[2018-11-09] MEDS: INSULIN SLIDING SCALE (NOVOLOG) 1 VIAL SQ SCH (23:11)
[2018-11-10] MEDS ORDERED: METHADONE HCL 10 MG TABLET ONE ×2 (05:22→09:25)
[2018-11-10] MEDS ORDERED: METHADONE HCL 40 MG DISPERSABLE TABLET ONE ×2 (05:22→09:26)
[2018-11-10] MEDS ORDERED: METHADONE HCL 40 MG DISPERSABLE TABLET PO SCH (06:00)
[2018-11-10] MEDS ORDERED: METHADONE 40 MG, METHADONE 20 MG PO SCH ×2 (06:00→10:00)
[2018-11-10] MEDS: diazePAM 5 MG TABLET PO SCH ×3 (07:04→22:02)
[2018-11-10] MEDS: INSULIN SLIDING SCALE (NOVOLOG) 1 VIAL SQ SCH ×4 (07:59→21:39)
[2018-11-10] MEDS: LIPASE/PROTEASE/AMYLASE 6,000 UNIT CAPSULE PO SCH ×3 (07:59→17:16)
[2018-11-10] MEDS: ASPIRIN COATED 81 MG TABLET.EC PO SCH (10:14)
[2018-11-10] MEDS: amLODIPine BESYLATE 10 MG TABLET (FP) PO SCH (10:14)
[2018-11-10] MEDS: NICOTINE 21 MG/24 HOURS TOPICAL PATCH TD SCH (10:14)
[2018-11-10] MEDS: PRENATAL VITAMINS W/ FOLIC ACID TABLET (FP) PO SCH (10:14)
[2018-11-10] MEDS: TAMSULOSIN HCL 0.4 MG CAP PO SCH (10:16)
[2018-11-10] MEDS: BUDESONIDE/FORMETEROL FUMARATE 80/4.5 mcg INHALER IH SCH ×2 (10:19→22:03)
[2018-11-10 10:31] LABS: HEMATOCRIT 29.6 % (35.4-49); MCH 32.2 pg (25.7-33.7); MCHC 33.8 g/dl (32.0-35.9); MEAN CELL VOLUME 95.2 fl (80-96); MEAN PLT VOLUME 8.9 fl (7.5-11.1); PLATELET COUNT 217 K/MM3 (134-434); RBC 3.11 M/mm3 (4.00-5.60); RDW 15.3 % (11.9-15.9); WHITE BLOOD COUNT 3.9 K/mm3 (4.0-10.0)
--- NOTE | 2018-11-10 10:55 | PN ---
[facility] CIWA - CIWA Score Nausea/Vomitin-Mild Nausea/No Vomiting Muscle Tremors: 2 Anxiety: 3 Agitation: 3 Paroxysmal Sweats: 1-Minimal Palms Moist Orientation: 0-Oriented Tacttile Disturbances: 0-None Auditory Disturbances: 0-None Visual Disturbances: 0-None Headache: 1-Very Mild CIWA-Ar Total Score: 11 [facility] Progress Note (SOAP) Subjective: pt states he would like to be seen by MH for medications he had been on, here for alcohol detox- says doing better, also on methadone. minimal diarrhea: h/o C.diff in 09/2018 O: Vital Signs - 24 hr 11/09/18 11/09/18 11/09/18 14:03 17:35 20:29 Temperature 97.8 F 97.5 F L 97.7 F Pulse Rate 84 85 76 Respiratory 18 18 18 Rate Blood Pressure 129/90 149/98 133/85 11/10/18 11/10/18 11/10/18 00:30 03:30 06:30 Temperature Pulse Rate Respiratory 18 18 18 Rate Blood Pressure 11/10/18 11/10/18 07:27 09:15 Temperature 98.1 F 98.2 F Pulse Rate 81 76 Respiratory 18 18 Rate Blood Pressure 144/89 127/90 Laboratory Tests 11/09/18 11/09/18 11/10/18 17:40 23:06 07:30 WBC 3.9 L RBC 3.11 L Hgb 10.0 L Hct 29.6 L MCV 95.2 MCH 32.2 MCHC 33.8 RDW 15.3 Plt Count 217 MPV 8.9 POC Glucometer 174 94 11/10/18 07:57 WBC RBC Hgb Hct MCV MCH MCHC RDW Plt Count MPV POC Glucometer 134 anemia: HCT 29 a/p: continue alcohol detox protocol continue methadone 60mg/day f/u with PCP for eval of anemia f/s for BGM has been good- will change to qam f/s continue vancomycin for h/o c.diff diarrhea- pt to f/u PCP consult pending
[2018-11-10 11:07] LABS: ALBUMIN 3.3 g/dl (3.4-5.0); BILIRUBIN,TOTAL 0.3 mg/dL (0.2-1); BLOOD UREA NITROGEN 36.7 mg/dL (7-18); CALCIUM 8.4 mg/dL (8.5-10.1); CREATININE 1.8 mg/dL (0.55-1.3); POTASSIUM 3.4 mmol/L (3.5-5.1)
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
[2018-11-10] MEDS: VANCOMYCIN 250 MG/5 ML ORAL SOLUTION PO SCH ×4 (15:06→21:39)
[2018-11-10] MEDS: THIAMINE HCL 100 MG TABLET (FP) PO SCH (22:02)
[2018-11-10] MEDS: QUEtiapine FUMARATE 100 MG TABLET (FP) PO SCH (22:02)
[2018-11-10] MEDS: MELATONIN 5 MG TABLETS PO PRN (22:03)
[2018-11-11] MEDS: diazePAM 5 MG TABLET PO SCH ×2 (05:27→17:20)
[2018-11-11] MEDS ORDERED: METHADONE HCL 10 MG TABLET ONE ×2 (06:31→06:34)
[2018-11-11] MEDS ORDERED: METHADONE HCL 40 MG DISPERSABLE TABLET ONE (06:35)
[2018-11-11] MEDS: METHADONE 40 MG, METHADONE 20 MG PO SCH (06:37)
[2018-11-11] MEDS: LIPASE/PROTEASE/AMYLASE 6,000 UNIT CAPSULE PO SCH ×3 (06:49→17:24)
[2018-11-11] MEDS: INSULIN SLIDING SCALE (NOVOLOG) 1 VIAL SQ SCH ×4 (06:56→22:11)
[2018-11-11] MEDS: ASPIRIN COATED 81 MG TABLET.EC PO SCH (10:20)
[2018-11-11] MEDS: PRENATAL VITAMINS W/ FOLIC ACID TABLET (FP) PO SCH (10:20)
[2018-11-11] MEDS: amLODIPine BESYLATE 10 MG TABLET (FP) PO SCH (10:20)
[2018-11-11] MEDS: VANCOMYCIN 250 MG/5 ML ORAL SOLUTION PO SCH ×4 (10:20→22:15)
[2018-11-11] MEDS: BUDESONIDE/FORMETEROL FUMARATE 80/4.5 mcg INHALER IH SCH ×2 (10:20→22:20)
[2018-11-11] MEDS: TAMSULOSIN HCL 0.4 MG CAP PO SCH (10:20)
[2018-11-11] MEDS: NICOTINE 21 MG/24 HOURS TOPICAL PATCH TD SCH (10:22)
--- NOTE | 2018-11-11 13:44 | PN ---
S CIWA - CIWA Score Nausea/Vomitin-Mild Nausea/No Vomiting Muscle Tremors: 2 Anxiety: 4-Mod. Anxious/Guarded Agitation: 0-Normal Activity Paroxysmal Sweats: No Perspiration Orientation: 0-Oriented Tacttile Disturbances: 0-None Auditory Disturbances: 0-None Visual Disturbances: 1-Very Mild Sensitivity Headache: 0-None Present CIWA-Ar Total Score: 8 BHS Progress Note (SOAP) Subjective: Nausea, Tremors, Anxious, Diarrhea. Objective: PATIENT A & O X 3, OBSERVED AMBULATING ON UNIT UNASSISTED. IN NO ACUTE DISTRESS. 11/11/18 13:46 Vital Signs Temperature 97.3 F L 11/11/18 13:36 Pulse Rate 85 11/11/18 13:36 Respiratory Rate 18 11/11/18 13:36 Blood Pressure 157/94 11/11/18 13:36 O2 Sat by Pulse Oximetry (%) Laboratory Tests 11/09/18 11/09/18 11/10/18 17:40 23:06 07:30 WBC 3.9 L RBC 3.11 L Hgb 10.0 L Hct 29.6 L MCV 95.2 MCH 32.2 MCHC 33.8 RDW 15.3 Plt Count 217 MPV 8.9 Sodium Potassium Chloride Carbon Dioxide Anion Gap BUN Creatinine Est GFR (CKD-EPI)AfAm Est GFR (CKD-EPI)NonAf POC Glucometer 174 94 Random Glucose Calcium Total Bilirubin AST ALT Alkaline Phosphatase Total Protein Albumin RPR Titer 11/10/18 11/10/18 11/10/18 07:30 07:30 07:57 WBC RBC Hgb Hct MCV MCH MCHC RDW Plt Count MPV Sodium 147 H Potassium 3.4 L Chloride 111 H Carbon Dioxide 28 Anion Gap 7 L BUN 36.7 H Creatinine 1.8 H Est GFR (CKD-EPI)AfAm 48.04 Est GFR (CKD-EPI)NonAf 41.45 POC Glucometer 134 Random Glucose 131 H Calcium 8.4 L Total Bilirubin 0.3 AST 33 ALT 45 Alkaline Phosphatase 134 H Total Protein 7.0 Albumin 3.3 L RPR Titer Nonreactive 11/10/18 11/10/18 11/10/18 11:27 16:38 21:23 WBC RBC Hgb Hct MCV MCH MCHC RDW Plt Count MPV Sodium Potassium Chloride Carbon Dioxide Anion Gap BUN Creatinine Est GFR (CKD-EPI)AfAm Est GFR (CKD-EPI)NonAf POC Glucometer 198 202 222 Random Glucose Calcium Total Bilirubin AST ALT Alkaline Phosphatase Total Protein Albumin RPR Titer 11/11/18 11/11/18 06:41 10:27 WBC RBC Hgb Hct MCV MCH MCHC RDW Plt Count MPV Sodium Potassium Chloride Carbon Dioxide Anion Gap BUN Creatinine Est GFR (CKD-EPI)AfAm Est GFR (CKD-EPI)NonAf POC Glucometer 224 171 Random Glucose Calcium Total Bilirubin AST ALT Alkaline Phosphatase Total Protein Albumin RPR Titer LABS NOTED. PATIENT HAS BEEN ANEMIC AND HAS HAD LOW POTASSIUM LEVELS AND ABNORMAL RENAL LAB VALUES ON PREVIOUS ADMISSIONS. 11/11/18 13:50 Assessment: 11/11/18 13:51 WITHDRAWAL SYMPTOMS. ANEMIA. HYPOKALEMIA. AZOTEMIA. 11/11/18 13:52 Plan: CONTINUE DETOX. K-DUR, 40 MEQ PO X1 DOSE NOW, THEN 20 MEQ PO X 1 DOSE TONIGHT. PATIENT IS CURRENTLY RECEIVING DAILY MVI CONTAINING B VITAMINS AND IRON WHILE ADMITTED FOR DETOX. D/C IBUPROFEN AND MAGNESIUM-CONTAINING MEDS. FOR ABNORMAL ADMISSION RENAL LAB VALUES.
[2018-11-11] MEDS ORDERED: POTASSIUM CHLORIDE TABS 20 MEQ TABLET.ER (FP) PO ONE ×2 (13:48→22:00)
[2018-11-11] MEDS: QUEtiapine FUMARATE 100 MG TABLET (FP) PO SCH (22:15)
[2018-11-11] MEDS: THIAMINE HCL 100 MG TABLET (FP) PO SCH (22:15)
[2018-11-11] MEDS: MELATONIN 5 MG TABLETS PO PRN (22:18)
[2018-11-12] MEDS ORDERED: METHADONE HCL 40 MG DISPERSABLE TABLET ONE (04:05)
[2018-11-12] MEDS ORDERED: METHADONE HCL 10 MG TABLET ONE (04:05)
[2018-11-12] MEDS ORDERED: diazePAM 5 MG TABLET PO ONE (06:00)
[2018-11-12] MEDS: METHADONE 40 MG, METHADONE 20 MG PO SCH (06:16)
[2018-11-12] MEDS: INSULIN SLIDING SCALE (NOVOLOG) 1 VIAL SQ SCH ×2 (07:28→12:00)
[2018-11-12] MEDS: LIPASE/PROTEASE/AMYLASE 6,000 UNIT CAPSULE PO SCH ×2 (07:31→10:06)
--- NOTE | 2018-11-12 08:36 | DS ---
[facility] Detox Discharge Summary Admission Date: 11/09/18 Discharge Date: 11/12/18 - History Present History: Alcohol Dependence, MMTP - Physical Exam Results Vital Signs: Vital Signs Temperature 98.2 F 11/12/18 06:00 Pulse Rate 69 11/12/18 06:00 Respiratory Rate 18 11/12/18 06:00 Blood Pressure 149/93 11/12/18 06:00 O2 Sat by Pulse Oximetry (%) Pertinent Admission Physical Exam Findings: pt arrived in withdrawal sx - Treatment Hospital Course: Detox Protocol Followed, Detoxed Safely, Responded well, Discharged Condition Good, Rehab Referral Accepted Patient has Accepted a Rehab Referral to: [facility] - Medication Discharge Medications: Ambulatory Orders Albuterol Sulfate Inhaler - [Ventolin HFA Inhaler -] 2 inh IH Q4H PRN #1 inh 11/28 Methadone [Dolophine -] 60 mg PO DAILY@0600 05/03/18 Budesonide/Formeterol Fumarate [SYMBICORT 80/4.5mcg -] 2 inh PO BID 07/08/18 Lisinopril 20 mg PO DAILY 09/30/18 Tramadol HCl 50 mg PO QID 09/30/18 Famotidine 20 mg PO DAILY 10/19/18 Vancomycin Oral Solution [Vancocin *Oral Solution*] 250 mg PO QID 10/19/18 Amlodipine Besylate [Norvasc -] 10 mg PO DAILY 11/09/18 Aspirin [Aspirin EC] 81 mg PO DAILY 11/09/18 Atorvastatin Ca [Lipitor] 20 mg PO HS 11/09/18 Ferrous Sulfate [Feosol] 325 mg PO DAILY 11/09/18 Lipase/Protease/Amylase [Creon Dr 6,000 Units Capsule] 4 cap PO BID 11/09/18 Pantoprazole Sodium [Protonix -] 40 mg PO DAILY 11/09/18 Quetiapine Fumarate [Seroquel -] 200 mg PO HS 11/09/18 Tamsulosin HCl [Flomax -] 0.4 mg PO DAILY@0830 11/09/18 - Diagnosis (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 (2) Substance-induced sleep disorder Current Visit: Yes Status: Acute (3) Anemia Current Visit: Yes Status: Chronic Qualifiers: Anemia type: unspecified type Qualified Code(s): D64.9 - Anemia, unspecified (4) Bipolar disorder Current Visit: Yes Status: Chronic (5) Hypertension Current Visit: Yes Status: Chronic Qualifiers: Hypertension type: essential hypertension Qualified Code(s): I10 - Essential (primary) hypertension (6) ANGELO (acute kidney injury) Current Visit: No Status: Acute (7) Alcohol dependence with uncomplicated withdrawal Current Visit: Yes Status: Acute (8) Substance-induced anxiety disorder Current Visit: No Status: Acute (9) Alcohol dependence with uncomplicated withdrawal Current Visit: Yes Status: Chronic (10) Asthma Current Visit: No Status: Chronic (11) BPH (benign prostatic hyperplasia) Current Visit: No Status: Chronic (12) Benzodiazepine dependence Current Visit: No Status: Chronic (13) Bipolar disorder Current Visit: No Status: Chronic (14) COPD (chronic obstructive pulmonary disease) Current Visit: No Status: Chronic Qualifiers: COPD type: unspecified COPD Qualified Code(s): J44.9 - Chronic obstructive pulmonary disease, unspecified (15) Cannabis dependence Current Visit: No Status: Acute (16) Cocaine dependence Current Visit: Yes Status: Chronic Qualifiers: Substance use status: uncomplicated Qualified Code(s): F14.20 - Cocaine dependence, uncomplicated (17) DM2 (diabetes mellitus, type 2) Current Visit: Yes Status: Chronic Qualifiers: Diabetes mellitus fdc insulin use: without long term care phlebotomist use (18) GERD (gastroesophageal reflux disease) Current Visit: No Status: Chronic Qualifiers: Esophagitis presence: without esophagitis Qualified Code(s): K21.9 - Gastro -esophageal reflux disease without esophagitis (19) Hypercholesteremia Current Visit: No Status: Chronic (20) Methadone maintenance therapy patient Current Visit: No Status: Chronic (21) Nicotine dependence Current Visit: Yes Status: Chronic Qualifiers: Nicotine product type: cigarettes Substance use status: uncomplicated Qualified Code(s): F17.210 - Nicotine dependence, cigarettes, uncomplicated (22) Varicose vein of leg Current Visit: No Status: Chronic - AMA Did Patient Leave Against Medical Advice: No
[2018-11-12] MEDS: amLODIPine BESYLATE 10 MG TABLET (FP) PO SCH (10:03)
[2018-11-12] MEDS: ASPIRIN COATED 81 MG TABLET.EC PO SCH (10:03)
[2018-11-12] MEDS: PRENATAL VITAMINS W/ FOLIC ACID TABLET (FP) PO SCH (10:03)
[2018-11-12] MEDS: TAMSULOSIN HCL 0.4 MG CAP PO SCH (10:03)
[2018-11-12] MEDS: NICOTINE 21 MG/24 HOURS TOPICAL PATCH TD SCH (10:04)
[2018-11-12] MEDS: BUDESONIDE/FORMETEROL FUMARATE 80/4.5 mcg INHALER IH SCH (10:04)
[2018-11-12] MEDS: VANCOMYCIN 250 MG/5 ML ORAL SOLUTION PO SCH (10:04)
[2018-11-12 13:13] VITALS: BP 150/96; PULSE 90; TEMP 98.1
[2018-11-12] MEDS ORDERED: QUEtiapine FUMARATE 200 MG TABLET PO SCH (22:00)
== END 2018-11-12 15:15 | disposition other institution (70) | DRG 773 ==
LOC: YASAS 12:11 → Y6N 16:48
PROVIDERS: ADMIT Surgery; ATTEND Surgery
PROC: HZ2ZZZZ Detoxification Services for Substance Abuse Treatment (ICD-10-PCS; principal; 2018-11-09)
DX: F10.230 Alcohol dependence with withdrawal, uncomplicated (principal); F11.20 Opioid dependence, uncomplicated; F13.230 Sedative, hypnotic or anxiolytic dependence with withdrawal, uncomplicated; F17.210 Nicotine dependence, cigarettes, uncomplicated; F19.280 Other psychoactive substance dependence with psychoactive substance-induced anxiety disorder; F19.282 Other psychoactive substance dependence with psychoactive substance-induced sleep disorder; F31.9 Bipolar disorder, unspecified; I10 Essential (primary) hypertension; R16.0 Hepatomegaly, not elsewhere classified; D64.9 Anemia, unspecified; N17.9 Acute kidney failure, unspecified; N40.0 Benign prostatic hyperplasia without lower urinary tract symptoms; K21.9 Gastro-esophageal reflux disease without esophagitis; E78.00 Pure hypercholesterolemia, unspecified; I83.92 Asymptomatic varicose veins of left lower extremity; E87.6 Hypokalemia; R79.89 Other specified abnormal findings of blood chemistry; Z86.19 Personal history of other infectious and parasitic diseases
CPT/HCPCS: 36415; 80053; 82962; 85027; 86593

== ENCOUNTER 2018-11-12 15:32 | Inpatient (IN) | payer OTHER ==
--- NOTE | 2018-11-12 12:19 | HP ---
[facility] Rehab Assess/Revision - Admission History [facility] - Findings Detox History & Physical reviewed: Yes Concur with findings: Yes Inpatient Rehab Admission - Rehab Decision to Admit Inpatient rehab admission?: Yes - Initial Determination Are CD services needed?: Yes Free of communicable disease: Yes Not in need of hospitalization: Yes - Rehab Admission Criteria Previous failed treatment: Yes Poor recovery environment: Yes Comorbidities: Yes Lacks judgement: Yes Patient is meeting Inpatient Rehab admission criteria:: Yes
[~2018-11-12 15:32] MED LIST: LOPERAMIDE HCL 2 MG CAPSULE PO PRN; MAGNESIUM CITRATE 300 ML BOTTLE PO PRN; MAGNESIUM HYDROX 2400MG/30ML ORAL SUSPENSION 30 ML CUP PO PRN; MENTHOL/PHENOL 1 EACH UD MM PRN; NICOTINE POLACRILEX 4 MG GUM BUC PRN; P-EPHED 60MG/TRIPROLIDI 2.5MG TABLET PO PRN; guaiFENesin 200 MG/10 ML 10 ML UNIT-DOSE CUPS PO PRN; hydrOXYzine PAMOATE 50 MG CAPSULE (FP) PO PRN
--- NOTE | 2018-11-12 17:03 | PN ---
[facility] Progress Note Note: Psychiatric nurse practitioner note: Patient reports difficulty sleeping. Patient is prescribed seroquel 200mg HS by outside provider but reported medication noncompliance for several weeks. Patient able to tolerate seroquel 100mg. Will d/c seroquel 100mg and will order Seroquel 200mg HS. Benefits and side effects discussed. Verbal consent given.
[2018-11-12] MEDS: THIAMINE HCL 100 MG TABLET (FP) PO SCH (22:03)
[2018-11-12] MEDS: MELATONIN 5 MG TABLETS PO PRN (22:03)
[2018-11-12] MEDS: QUEtiapine FUMARATE 200 MG TABLET PO SCH (22:03)
[2018-11-13] MEDS ORDERED: METHADONE HCL 10 MG TABLET PO SCH (06:30)
[2018-11-13] MEDS ORDERED: METHADONE HCL 10 MG TABLET ONE (06:50)
[2018-11-13] MEDS ORDERED: METHADONE HCL 40 MG DISPERSABLE TABLET ONE (06:50)
[2018-11-13] MEDS: METHADONE 40 MG, METHADONE 20 MG PO SCH (07:04)
[2018-11-13] MEDS: PRENATAL VITAMINS W/ FOLIC ACID TABLET (FP) PO SCH (10:57)
[2018-11-13] MEDS: NICOTINE 21 MG/24 HOURS TOPICAL PATCH TD SCH (10:57)
[2018-11-13] MEDS: MAG HYDROX/AL HYDROX/SIMETH 30 ML UNIT-DOSE CUP PO PRN (11:03)
[2018-11-13] MEDS ORDERED: ALBUTEROL SO4 8 GM HFA INHALER IH PRN (13:29)
[2018-11-13] MEDS ORDERED: LISINOPRIL 20 MG TABLET (FP) PO ONE ×2 (16:15→16:30)
[2018-11-13] MEDS: THIAMINE HCL 100 MG TABLET (FP) PO SCH (21:51)
[2018-11-13] MEDS: QUEtiapine FUMARATE 200 MG TABLET PO SCH (21:51)
[2018-11-13] MEDS: ATORVASTATIN CA 20 MG TABLET (FP) PO SCH (21:51)
[2018-11-13] MEDS: MELATONIN 5 MG TABLETS PO PRN (21:51)
[2018-11-13] MEDS: BUDESONIDE/FORMETEROL FUMARATE 80/4.5 mcg INHALER IH SCH (21:51)
[2018-11-14] MEDS ORDERED: METHADONE HCL 10 MG TABLET ONE (06:03)
[2018-11-14] MEDS ORDERED: METHADONE HCL 40 MG DISPERSABLE TABLET ONE (06:03)
[2018-11-14] MEDS: METHADONE 40 MG, METHADONE 20 MG PO SCH (06:34)
[2018-11-14] MEDS: TAMSULOSIN HCL 0.4 MG CAP PO SCH (09:28)
[2018-11-14] MEDS: FERROUS SO4 325 MG TABLET (FP) PO SCH (09:29)
[2018-11-14] MEDS: NICOTINE 21 MG/24 HOURS TOPICAL PATCH TD SCH (09:29)
[2018-11-14] MEDS: ASPIRIN COATED 81 MG TABLET.EC PO SCH (09:29)
[2018-11-14] MEDS: PRENATAL VITAMINS W/ FOLIC ACID TABLET (FP) PO SCH (09:29)
[2018-11-14] MEDS: BUDESONIDE/FORMETEROL FUMARATE 80/4.5 mcg INHALER IH SCH ×2 (09:29→21:57)
[2018-11-14] MEDS: LISINOPRIL 20 MG TABLET (FP) PO SCH (09:30)
[2018-11-14] MEDS: amLODIPine BESYLATE 10 MG TABLET (FP) PO SCH (09:30)
[2018-11-14] MEDS: MAG HYDROX/AL HYDROX/SIMETH 30 ML UNIT-DOSE CUP PO PRN (19:40)
[2018-11-14] MEDS: QUEtiapine FUMARATE 200 MG TABLET PO SCH (21:57)
[2018-11-14] MEDS: THIAMINE HCL 100 MG TABLET (FP) PO SCH (21:57)
[2018-11-14] MEDS: ATORVASTATIN CA 20 MG TABLET (FP) PO SCH (21:57)
[2018-11-14] MEDS: MELATONIN 5 MG TABLETS PO PRN (21:58)
[2018-11-15] MEDS ORDERED: METHADONE HCL 10 MG TABLET ONE (05:50)
[2018-11-15] MEDS ORDERED: METHADONE HCL 40 MG DISPERSABLE TABLET ONE (05:50)
[2018-11-15] MEDS: METHADONE 40 MG, METHADONE 20 MG PO SCH (06:08)
[2018-11-15] MEDS: TAMSULOSIN HCL 0.4 MG CAP PO SCH (10:56)
[2018-11-15] MEDS: PRENATAL VITAMINS W/ FOLIC ACID TABLET (FP) PO SCH (10:56)
[2018-11-15] MEDS: ASPIRIN COATED 81 MG TABLET.EC PO SCH (10:57)
[2018-11-15] MEDS: FERROUS SO4 325 MG TABLET (FP) PO SCH (10:57)
[2018-11-15] MEDS: BUDESONIDE/FORMETEROL FUMARATE 80/4.5 mcg INHALER IH SCH ×2 (10:58→22:00)
[2018-11-15] MEDS: NICOTINE 21 MG/24 HOURS TOPICAL PATCH TD SCH (10:58)
[2018-11-15] MEDS: LISINOPRIL 20 MG TABLET (FP) PO SCH (11:02)
[2018-11-15] MEDS: amLODIPine BESYLATE 10 MG TABLET (FP) PO SCH (11:02)
[2018-11-15] MEDS ORDERED: BISMUTH SUBSALICYLATE 524 MG/30 ML UD PO PRN (12:53)
[2018-11-15] MEDS: LIPASE/PROTEASE/AMYLASE 6,000 UNIT CAPSULE PO SCH (16:36)
[2018-11-15] MEDS: THIAMINE HCL 100 MG TABLET (FP) PO SCH (22:01)
[2018-11-15] MEDS: ATORVASTATIN CA 20 MG TABLET (FP) PO SCH (22:01)
[2018-11-15] MEDS: MELATONIN 5 MG TABLETS PO PRN (22:01)
[2018-11-15] MEDS: QUEtiapine FUMARATE 200 MG TABLET PO SCH (22:01)
[2018-11-16] MEDS ORDERED: METHADONE HCL 40 MG DISPERSABLE TABLET ONE (05:55)
[2018-11-16] MEDS ORDERED: METHADONE HCL 10 MG TABLET ONE (05:55)
[2018-11-16] MEDS: LIPASE/PROTEASE/AMYLASE 6,000 UNIT CAPSULE PO SCH ×2 (06:23→17:00)
[2018-11-16] MEDS: METHADONE 40 MG, METHADONE 20 MG PO SCH (06:24)
[2018-11-16] MEDS: BUDESONIDE/FORMETEROL FUMARATE 80/4.5 mcg INHALER IH SCH ×2 (10:14→21:04)
[2018-11-16] MEDS: LISINOPRIL 20 MG TABLET (FP) PO SCH (10:14)
[2018-11-16] MEDS: amLODIPine BESYLATE 10 MG TABLET (FP) PO SCH (10:14)
[2018-11-16] MEDS: NICOTINE 21 MG/24 HOURS TOPICAL PATCH TD SCH (10:14)
[2018-11-16] MEDS: ASPIRIN COATED 81 MG TABLET.EC PO SCH (10:14)
[2018-11-16] MEDS: FERROUS SO4 325 MG TABLET (FP) PO SCH (10:14)
[2018-11-16] MEDS: PRENATAL VITAMINS W/ FOLIC ACID TABLET (FP) PO SCH (10:14)
[2018-11-16] MEDS: TAMSULOSIN HCL 0.4 MG CAP PO SCH (10:14)
[2018-11-16] MEDS: PANTOPRAZOLE 40 MG TABLET (FP) PO SCH (14:06)
[2018-11-16] MEDS: ATORVASTATIN CA 20 MG TABLET (FP) PO SCH (21:03)
[2018-11-16] MEDS: QUEtiapine FUMARATE 200 MG TABLET PO SCH (21:03)
[2018-11-16] MEDS: THIAMINE HCL 100 MG TABLET (FP) PO SCH (21:04)
[2018-11-16] MEDS: MELATONIN 5 MG TABLETS PO PRN (21:05)
[2018-11-17] MEDS ORDERED: METHADONE HCL 40 MG DISPERSABLE TABLET ONE (06:02)
[2018-11-17] MEDS ORDERED: METHADONE HCL 10 MG TABLET ONE (06:02)
[2018-11-17] MEDS: METHADONE 40 MG, METHADONE 20 MG PO SCH (06:04)
[2018-11-17] MEDS: LIPASE/PROTEASE/AMYLASE 6,000 UNIT CAPSULE PO SCH ×2 (06:07→16:55)
[2018-11-17] MEDS: PANTOPRAZOLE 40 MG TABLET (FP) PO SCH (10:38)
[2018-11-17] MEDS: TAMSULOSIN HCL 0.4 MG CAP PO SCH (10:38)
[2018-11-17] MEDS: ASPIRIN COATED 81 MG TABLET.EC PO SCH (10:38)
[2018-11-17] MEDS: LISINOPRIL 20 MG TABLET (FP) PO SCH (10:38)
[2018-11-17] MEDS: amLODIPine BESYLATE 10 MG TABLET (FP) PO SCH (10:38)
[2018-11-17] MEDS: FERROUS SO4 325 MG TABLET (FP) PO SCH (10:38)
[2018-11-17] MEDS: PRENATAL VITAMINS W/ FOLIC ACID TABLET (FP) PO SCH (10:38)
[2018-11-17] MEDS: BUDESONIDE/FORMETEROL FUMARATE 80/4.5 mcg INHALER IH SCH ×2 (10:39→21:56)
[2018-11-17] MEDS: NICOTINE 21 MG/24 HOURS TOPICAL PATCH TD SCH (10:39)
[2018-11-17] MEDS ORDERED: DOCUSATE SODIUM 100 MG CAPSULE (FP) PO ONE (11:35)
[2018-11-17] MEDS: DOCUSATE SODIUM 100 MG CAPSULE (FP) PO SCH ×2 (14:35→21:57)
[2018-11-17] MEDS: THIAMINE HCL 100 MG TABLET (FP) PO SCH (21:55)
[2018-11-17] MEDS: MELATONIN 5 MG TABLETS PO PRN (21:55)
[2018-11-17] MEDS: ATORVASTATIN CA 20 MG TABLET (FP) PO SCH (21:55)
[2018-11-17] MEDS: QUEtiapine FUMARATE 200 MG TABLET PO SCH (21:55)
[2018-11-18] MEDS ORDERED: METHADONE HCL 10 MG TABLET ONE (05:51)
[2018-11-18] MEDS ORDERED: METHADONE HCL 40 MG DISPERSABLE TABLET ONE (05:51)
[2018-11-18] MEDS: LIPASE/PROTEASE/AMYLASE 6,000 UNIT CAPSULE PO SCH ×2 (06:39→17:22)
[2018-11-18] MEDS: DOCUSATE SODIUM 100 MG CAPSULE (FP) PO SCH ×3 (06:39→22:04)
[2018-11-18] MEDS: METHADONE 40 MG, METHADONE 20 MG PO SCH (06:40)
[2018-11-18] MEDS: PANTOPRAZOLE 40 MG TABLET (FP) PO SCH (10:41)
[2018-11-18] MEDS: amLODIPine BESYLATE 10 MG TABLET (FP) PO SCH (10:41)
[2018-11-18] MEDS: LISINOPRIL 20 MG TABLET (FP) PO SCH (10:41)
[2018-11-18] MEDS: ASPIRIN COATED 81 MG TABLET.EC PO SCH (10:41)
[2018-11-18] MEDS: FERROUS SO4 325 MG TABLET (FP) PO SCH (10:41)
[2018-11-18] MEDS: PRENATAL VITAMINS W/ FOLIC ACID TABLET (FP) PO SCH (10:41)
[2018-11-18] MEDS: TAMSULOSIN HCL 0.4 MG CAP PO SCH (10:41)
[2018-11-18] MEDS: BUDESONIDE/FORMETEROL FUMARATE 80/4.5 mcg INHALER IH SCH ×2 (10:42→22:04)
[2018-11-18] MEDS: NICOTINE 21 MG/24 HOURS TOPICAL PATCH TD SCH (10:42)
[2018-11-18] MEDS: QUEtiapine FUMARATE 200 MG TABLET PO SCH (22:04)
[2018-11-18] MEDS: ATORVASTATIN CA 20 MG TABLET (FP) PO SCH (22:04)
[2018-11-18] MEDS: THIAMINE HCL 100 MG TABLET (FP) PO SCH (22:04)
[2018-11-18] MEDS: MELATONIN 5 MG TABLETS PO PRN (22:05)
[2018-11-19] MEDS ORDERED: METHADONE HCL 40 MG DISPERSABLE TABLET ONE (05:21)
[2018-11-19] MEDS ORDERED: METHADONE HCL 10 MG TABLET ONE (05:21)
[2018-11-19] MEDS: LIPASE/PROTEASE/AMYLASE 6,000 UNIT CAPSULE PO SCH ×2 (06:29→17:35)
[2018-11-19] MEDS: DOCUSATE SODIUM 100 MG CAPSULE (FP) PO SCH ×3 (06:29→21:35)
[2018-11-19] MEDS: METHADONE 40 MG, METHADONE 20 MG PO SCH (06:30)
[2018-11-19] MEDS: TAMSULOSIN HCL 0.4 MG CAP PO SCH (07:58)
[2018-11-19] MEDS: PRENATAL VITAMINS W/ FOLIC ACID TABLET (FP) PO SCH (11:03)
[2018-11-19] MEDS: NICOTINE 21 MG/24 HOURS TOPICAL PATCH TD SCH (11:04)
[2018-11-19] MEDS: amLODIPine BESYLATE 10 MG TABLET (FP) PO SCH (11:04)
[2018-11-19] MEDS: PANTOPRAZOLE 40 MG TABLET (FP) PO SCH (11:04)
[2018-11-19] MEDS: FERROUS SO4 325 MG TABLET (FP) PO SCH (11:04)
[2018-11-19] MEDS: ASPIRIN COATED 81 MG TABLET.EC PO SCH (11:04)
[2018-11-19] MEDS: LISINOPRIL 20 MG TABLET (FP) PO SCH (11:05)
[2018-11-19] MEDS: BUDESONIDE/FORMETEROL FUMARATE 80/4.5 mcg INHALER IH SCH ×2 (11:07→22:47)
[2018-11-19] MEDS: MELATONIN 5 MG TABLETS PO PRN (21:33)
[2018-11-19] MEDS: THIAMINE HCL 100 MG TABLET (FP) PO SCH (21:33)
[2018-11-19] MEDS: QUEtiapine FUMARATE 200 MG TABLET PO SCH (21:34)
[2018-11-19] MEDS: ATORVASTATIN CA 20 MG TABLET (FP) PO SCH (21:34)
[2018-11-20] MEDS ORDERED: METHADONE HCL 10 MG TABLET ONE (06:13)
[2018-11-20] MEDS ORDERED: METHADONE HCL 40 MG DISPERSABLE TABLET ONE (06:13)
[2018-11-20] MEDS: DOCUSATE SODIUM 100 MG CAPSULE (FP) PO SCH ×3 (06:30→22:02)
[2018-11-20] MEDS: METHADONE 40 MG, METHADONE 20 MG PO SCH (06:38)
[2018-11-20] MEDS: LIPASE/PROTEASE/AMYLASE 6,000 UNIT CAPSULE PO SCH ×2 (07:30→17:10)
[2018-11-20] MEDS: amLODIPine BESYLATE 10 MG TABLET (FP) PO SCH (12:10)
[2018-11-20] MEDS: TAMSULOSIN HCL 0.4 MG CAP PO SCH (12:10)
[2018-11-20] MEDS: PANTOPRAZOLE 40 MG TABLET (FP) PO SCH (12:10)
[2018-11-20] MEDS: NICOTINE 21 MG/24 HOURS TOPICAL PATCH TD SCH (12:10)
[2018-11-20] MEDS: LISINOPRIL 20 MG TABLET (FP) PO SCH (12:10)
[2018-11-20] MEDS: FERROUS SO4 325 MG TABLET (FP) PO SCH (12:10)
[2018-11-20] MEDS: PRENATAL VITAMINS W/ FOLIC ACID TABLET (FP) PO SCH (12:10)
[2018-11-20] MEDS: ASPIRIN COATED 81 MG TABLET.EC PO SCH (12:10)
[2018-11-20] MEDS: BUDESONIDE/FORMETEROL FUMARATE 80/4.5 mcg INHALER IH SCH ×2 (12:12→22:03)
[2018-11-20] MEDS: QUEtiapine FUMARATE 200 MG TABLET PO SCH (22:02)
[2018-11-20] MEDS: MELATONIN 5 MG TABLETS PO PRN (22:02)
[2018-11-20] MEDS: THIAMINE HCL 100 MG TABLET (FP) PO SCH (22:02)
[2018-11-20] MEDS: ATORVASTATIN CA 20 MG TABLET (FP) PO SCH (22:02)
[2018-11-21] MEDS ORDERED: METHADONE HCL 10 MG TABLET ONE (05:59)
[2018-11-21] MEDS ORDERED: METHADONE HCL 40 MG DISPERSABLE TABLET ONE (05:59)
[2018-11-21] MEDS: DOCUSATE SODIUM 100 MG CAPSULE (FP) PO SCH ×3 (06:17→21:58)
[2018-11-21] MEDS: METHADONE 40 MG, METHADONE 20 MG PO SCH (06:17)
[2018-11-21] MEDS: LIPASE/PROTEASE/AMYLASE 6,000 UNIT CAPSULE PO SCH ×2 (06:18→16:49)
[2018-11-21] MEDS: amLODIPine BESYLATE 10 MG TABLET (FP) PO SCH (10:52)
[2018-11-21] MEDS: BUDESONIDE/FORMETEROL FUMARATE 80/4.5 mcg INHALER IH SCH ×2 (10:52→21:59)
[2018-11-21] MEDS: LISINOPRIL 20 MG TABLET (FP) PO SCH (10:52)
[2018-11-21] MEDS: FERROUS SO4 325 MG TABLET (FP) PO SCH (10:52)
[2018-11-21] MEDS: ASPIRIN COATED 81 MG TABLET.EC PO SCH (10:52)
[2018-11-21] MEDS: PRENATAL VITAMINS W/ FOLIC ACID TABLET (FP) PO SCH (10:52)
[2018-11-21] MEDS: PANTOPRAZOLE 40 MG TABLET (FP) PO SCH (10:53)
[2018-11-21] MEDS: TAMSULOSIN HCL 0.4 MG CAP PO SCH (10:53)
[2018-11-21] MEDS: NICOTINE 21 MG/24 HOURS TOPICAL PATCH TD SCH (10:54)
[2018-11-21] MEDS: MELATONIN 5 MG TABLETS PO PRN (21:58)
[2018-11-21] MEDS: ATORVASTATIN CA 20 MG TABLET (FP) PO SCH (21:58)
[2018-11-21] MEDS: THIAMINE HCL 100 MG TABLET (FP) PO SCH (21:58)
[2018-11-21] MEDS: QUEtiapine FUMARATE 200 MG TABLET PO SCH (21:58)
[2018-11-22] MEDS ORDERED: METHADONE HCL 10 MG TABLET ONE (03:04)
[2018-11-22] MEDS ORDERED: METHADONE HCL 40 MG DISPERSABLE TABLET ONE (03:04)
[2018-11-22] MEDS: METHADONE 40 MG, METHADONE 20 MG PO SCH (06:19)
[2018-11-22] MEDS: LIPASE/PROTEASE/AMYLASE 6,000 UNIT CAPSULE PO SCH ×2 (07:10→17:15)
[2018-11-22] MEDS: DOCUSATE SODIUM 100 MG CAPSULE (FP) PO SCH ×3 (07:10→22:12)
[2018-11-22] MEDS: PRENATAL VITAMINS W/ FOLIC ACID TABLET (FP) PO SCH (10:48)
[2018-11-22] MEDS: amLODIPine BESYLATE 10 MG TABLET (FP) PO SCH (10:48)
[2018-11-22] MEDS: TAMSULOSIN HCL 0.4 MG CAP PO SCH (10:48)
[2018-11-22] MEDS: FERROUS SO4 325 MG TABLET (FP) PO SCH (10:48)
[2018-11-22] MEDS: LISINOPRIL 20 MG TABLET (FP) PO SCH (10:48)
[2018-11-22] MEDS: ASPIRIN COATED 81 MG TABLET.EC PO SCH (10:48)
[2018-11-22] MEDS: PANTOPRAZOLE 40 MG TABLET (FP) PO SCH (10:49)
[2018-11-22] MEDS: NICOTINE 21 MG/24 HOURS TOPICAL PATCH TD SCH (10:49)
[2018-11-22] MEDS: BUDESONIDE/FORMETEROL FUMARATE 80/4.5 mcg INHALER IH SCH ×2 (10:49→22:11)
[2018-11-22] MEDS: ACETAMINOPHEN 325 MG TABLET (FP) PO PRN (20:16)
[2018-11-22] MEDS: MAG HYDROX/AL HYDROX/SIMETH 30 ML UNIT-DOSE CUP PO PRN (20:17)
[2018-11-22] MEDS: THIAMINE HCL 100 MG TABLET (FP) PO SCH (22:11)
[2018-11-22] MEDS: MELATONIN 5 MG TABLETS PO PRN (22:12)
[2018-11-22] MEDS: QUEtiapine FUMARATE 200 MG TABLET PO SCH (22:12)
[2018-11-22] MEDS: ATORVASTATIN CA 20 MG TABLET (FP) PO SCH (22:12)
[2018-11-23] MEDS ORDERED: METHADONE HCL 10 MG TABLET ONE (05:55)
[2018-11-23] MEDS ORDERED: METHADONE HCL 40 MG DISPERSABLE TABLET ONE (05:55)
[2018-11-23] MEDS: DOCUSATE SODIUM 100 MG CAPSULE (FP) PO SCH ×3 (06:17→21:54)
[2018-11-23] MEDS: METHADONE 40 MG, METHADONE 20 MG PO SCH (06:18)
[2018-11-23] MEDS: LIPASE/PROTEASE/AMYLASE 6,000 UNIT CAPSULE PO SCH ×2 (08:34→16:54)
[2018-11-23] MEDS: LISINOPRIL 20 MG TABLET (FP) PO SCH (11:00)
[2018-11-23] MEDS: TAMSULOSIN HCL 0.4 MG CAP PO SCH (11:00)
[2018-11-23] MEDS: FERROUS SO4 325 MG TABLET (FP) PO SCH (11:00)
[2018-11-23] MEDS: ASPIRIN COATED 81 MG TABLET.EC PO SCH (11:00)
[2018-11-23] MEDS: PRENATAL VITAMINS W/ FOLIC ACID TABLET (FP) PO SCH (11:00)
[2018-11-23] MEDS: amLODIPine BESYLATE 10 MG TABLET (FP) PO SCH (11:00)
[2018-11-23] MEDS: PANTOPRAZOLE 40 MG TABLET (FP) PO SCH (11:00)
[2018-11-23] MEDS: NICOTINE 21 MG/24 HOURS TOPICAL PATCH TD SCH (11:01)
[2018-11-23] MEDS: MAG HYDROX/AL HYDROX/SIMETH 30 ML UNIT-DOSE CUP PO PRN (12:19)
[2018-11-23] MEDS: BUDESONIDE/FORMETEROL FUMARATE 80/4.5 mcg INHALER IH SCH ×2 (14:32→21:56)
[2018-11-23] MEDS: ACETAMINOPHEN 325 MG TABLET (FP) PO PRN (16:53)
[2018-11-23] MEDS: INSULIN SLIDING SCALE (NOVOLOG) 1 VIAL SQ SCH (16:55)
[2018-11-23] MEDS: ATORVASTATIN CA 20 MG TABLET (FP) PO SCH (21:54)
[2018-11-23] MEDS: QUEtiapine FUMARATE 200 MG TABLET PO SCH (21:54)
[2018-11-23] MEDS: MELATONIN 5 MG TABLETS PO PRN (21:54)
[2018-11-23] MEDS: THIAMINE HCL 100 MG TABLET (FP) PO SCH (21:55)
[2018-11-24] MEDS ORDERED: METHADONE HCL 10 MG TABLET ONE (05:18)
[2018-11-24] MEDS ORDERED: METHADONE HCL 40 MG DISPERSABLE TABLET ONE (05:18)
[2018-11-24] MEDS: DOCUSATE SODIUM 100 MG CAPSULE (FP) PO SCH ×3 (06:13→21:58)
[2018-11-24] MEDS: METHADONE 40 MG, METHADONE 20 MG PO SCH (06:13)
[2018-11-24] MEDS: LIPASE/PROTEASE/AMYLASE 6,000 UNIT CAPSULE PO SCH ×2 (06:14→16:50)
[2018-11-24] MEDS: INSULIN SLIDING SCALE (NOVOLOG) 1 VIAL SQ SCH ×2 (06:24→16:48)
[2018-11-24] MEDS ORDERED: INSULIN (NOVOLOG) ASPART 100 UNITS/ML 10ML VIAL ONE (07:20)
[2018-11-24] MEDS: glipiZIDE 5 MG TABLET (FP) PO SCH (07:38)
[2018-11-24] MEDS: ASPIRIN COATED 81 MG TABLET.EC PO SCH (10:41)
[2018-11-24] MEDS: NICOTINE 21 MG/24 HOURS TOPICAL PATCH TD SCH (10:41)
[2018-11-24] MEDS: LISINOPRIL 20 MG TABLET (FP) PO SCH (10:41)
[2018-11-24] MEDS: TAMSULOSIN HCL 0.4 MG CAP PO SCH (10:41)
[2018-11-24] MEDS: amLODIPine BESYLATE 10 MG TABLET (FP) PO SCH (10:41)
[2018-11-24] MEDS: PANTOPRAZOLE 40 MG TABLET (FP) PO SCH (10:41)
[2018-11-24] MEDS: PRENATAL VITAMINS W/ FOLIC ACID TABLET (FP) PO SCH (10:42)
[2018-11-24] MEDS: FERROUS SO4 325 MG TABLET (FP) PO SCH (10:42)
[2018-11-24] MEDS: BUDESONIDE/FORMETEROL FUMARATE 80/4.5 mcg INHALER IH SCH ×2 (10:43→22:01)
[2018-11-24] MEDS: QUEtiapine FUMARATE 200 MG TABLET PO SCH (21:58)
[2018-11-24] MEDS: ATORVASTATIN CA 20 MG TABLET (FP) PO SCH (21:58)
[2018-11-24] MEDS: MELATONIN 5 MG TABLETS PO PRN (21:59)
[2018-11-24] MEDS: THIAMINE HCL 100 MG TABLET (FP) PO SCH (21:59)
[2018-11-24] MEDS: IBUPROFEN 400 MG TABLET (FP) PO PRN (22:00)
[2018-11-25] MEDS: LIPASE/PROTEASE/AMYLASE 6,000 UNIT CAPSULE PO SCH ×2 (06:29→16:53)
[2018-11-25] MEDS: DOCUSATE SODIUM 100 MG CAPSULE (FP) PO SCH ×3 (06:29→21:58)
[2018-11-25] MEDS: INSULIN SLIDING SCALE (NOVOLOG) 1 VIAL SQ SCH ×2 (06:29→16:50)
[2018-11-25] MEDS ORDERED: INSULIN (NOVOLOG) ASPART 100 UNITS/ML 10ML VIAL ONE (06:32)
[2018-11-25] MEDS ORDERED: METHADONE HCL 10 MG TABLET PO ONE (06:58)
[2018-11-25] MEDS ORDERED: METHADONE HCL 10 MG TABLET ONE (07:11)
[2018-11-25] MEDS ORDERED: METHADONE HCL 40 MG DISPERSABLE TABLET ONE (07:11)
[2018-11-25] MEDS: METHADONE 40 MG, METHADONE 20 MG PO SCH (07:18)
[2018-11-25] MEDS: glipiZIDE 5 MG TABLET (FP) PO SCH (07:54)
[2018-11-25] MEDS: LISINOPRIL 20 MG TABLET (FP) PO SCH (10:07)
[2018-11-25] MEDS: TAMSULOSIN HCL 0.4 MG CAP PO SCH (10:07)
[2018-11-25] MEDS: ASPIRIN COATED 81 MG TABLET.EC PO SCH (10:07)
[2018-11-25] MEDS: amLODIPine BESYLATE 10 MG TABLET (FP) PO SCH (10:07)
[2018-11-25] MEDS: PRENATAL VITAMINS W/ FOLIC ACID TABLET (FP) PO SCH (10:07)
[2018-11-25] MEDS: NICOTINE 21 MG/24 HOURS TOPICAL PATCH TD SCH (10:08)
[2018-11-25] MEDS: BUDESONIDE/FORMETEROL FUMARATE 80/4.5 mcg INHALER IH SCH ×2 (10:09→21:58)
[2018-11-25] MEDS: PANTOPRAZOLE 40 MG TABLET (FP) PO SCH (10:09)
[2018-11-25] MEDS: FERROUS SO4 325 MG TABLET (FP) PO SCH (10:09)
--- NOTE | 2018-11-25 10:44 | PN ---
[facility] Progress Note (SOAP) Subjective: Pt is a 53 y/o male admitted to rehab for DILIP and scheduled for discharge tomorrow, Pt has met with his counselor and [facility], Pt verbally reports he has primary care with Dr. Brian Medina on [place], [place] but it is not certain if pt is currently with this provider. However, Pt is referred to [facility] on [address] after discharge. Pt has a PMHx of uncontrolled DM-not compliant with meds, HTN,GERD,BPH,Chronic Pancreatis-on creon,Asthma and Psychiatrist disorder. Objective: 11/25/18 10:44 Vital Signs - 24 hr 11/25/18 11/25/18 11/25/18 00:30 02:39 03:30 Temperature Pulse Rate Respiratory 18 18 18 Rate Blood Pressure 11/25/18 07:26 Temperature 98.3 F Pulse Rate 88 Respiratory 18 Rate Blood Pressure 140/98 Laboratory Tests 11/23/18 11/24/18 11/24/18 07:30 06:17 16:45 POC Glucometer 440 413 497 11/25/18 06:26 POC Glucometer 470 Home Medications Medication Instructions Recorded Albuterol Sulfate Inhaler - 2 inh IH Q4H PRN #1 inh 01/18/18 [Ventolin HFA Inhaler -] Methadone [Dolophine -] 60 mg PO DAILY@0600 05/03/18 Budesonide/Formeterol Fumarate 2 inh PO BID 07/08/18 [SYMBICORT 80/4.5mcg -] Lisinopril 20 mg PO DAILY 09/30/18 Tramadol HCl 50 mg PO QID 09/30/18 Famotidine 20 mg PO DAILY 10/19/18 Vancomycin Oral Solution [Vancocin 250 mg PO QID 10/19/18 *Oral Solution*] Amlodipine Besylate [Norvasc -] 10 mg PO DAILY 11/09/18 Aspirin [Aspirin EC] 81 mg PO DAILY 11/09/18 Atorvastatin Ca [Lipitor] 20 mg PO HS 11/09/18 Ferrous Sulfate [Feosol] 325 mg PO DAILY 11/09/18 Lipase/Protease/Amylase [Creon Dr 4 cap PO BID 11/09/18 6,000 Units Capsule] Pantoprazole Sodium [Protonix -] 40 mg PO DAILY 11/09/18 Quetiapine Fumarate [Seroquel -] 200 mg PO HS 11/09/18 Tamsulosin HCl [Flomax -] 0.4 mg PO DAILY@0830 11/09/18 Glipizide 5 mg PO DAILY 11/23/18 General:Alert o x 3, NAD Cardiac:s1 s2,rrr Lungs:cta,jessenia. Abdomen:soft,+bs,nt,nd Extremities/Skin:No edema, active ROM,no lesions Assessment: 11/25/18 10:44 Medically stable [facility] Inpatient Services Medical - Diagnosis (1) Alcohol dependence Qualifiers: Substance use status: uncomplicated Qualified Code(s): F10.20 - Alcohol dependence, uncomplicated Current Visit: Yes Status: Chronic (2) BPH (benign prostatic hyperplasia) Qualifiers: Lower urinary tract symptom detail: unspecified Current Visit: Yes Status: Chronic (3) COPD (chronic obstructive pulmonary disease) Qualifiers: COPD type: unspecified COPD Qualified Code(s): J44.9 - Chronic obstructive pulmonary disease, unspecified Current Visit: Yes Status: Chronic (4) DM2 (diabetes mellitus, type 2) Qualifiers: Diabetes mellitus moth exterminator insulin use: without moth exterminator use Current Visit: Yes Status: Chronic (5) GERD (gastroesophageal reflux disease) Qualifiers: Esophagitis presence: esophagitis presence not specified Qualified Code(s) : K21.9 - Gastro-esophageal reflux disease without esophagitis Current Visit: Yes Status: Chronic (6) Hypercholesteremia Current Visit: Yes Status: Chronic (7) Hypertension Qualifiers: Hypertension type: essential hypertension Qualified Code(s): I10 - Essential (primary) hypertension Current Visit: Yes Status: Chronic (8) Methadone maintenance therapy patient Current Visit: Yes Status: Chronic (9) Nicotine dependence Qualifiers: Nicotine product type: cigarettes Substance use status: uncomplicated Qualified Code(s): F17.210 - Nicotine dependence, cigarettes, uncomplicated Current Visit: Yes Status: Chronic (10) Varicose vein of leg Qualifiers: Varicose vein complication: unspecified Current Visit: Yes Status: Chronic (11) Sedative dependence Current Visit: Yes Status: Chronic (12) Heroin use Current Visit: Yes Status: Chronic Initialized on 11/25/18 10:44 - END OF NOTE Plan: D/c pt tomorrow Follow up with CD aftercare with [facility] as recommended Follow up with primary care provider for medical management of comorbid conditions within 1-2 weeks after discharge.
--- NOTE | 2018-11-25 15:00 | PN ---
[facility] Progress Note Note: Patient is scheduled for discharge tomorrow. Script for 30 days supply of Seroquel 200 mg/hs will be electronically transmitted to [facility] at [address] [place], [place] [id number]
[2018-11-25] MEDS: QUEtiapine FUMARATE 200 MG TABLET PO SCH (21:58)
[2018-11-25] MEDS: MELATONIN 5 MG TABLETS PO PRN (21:59)
[2018-11-25] MEDS: ATORVASTATIN CA 20 MG TABLET (FP) PO SCH (21:59)
[2018-11-25] MEDS: THIAMINE HCL 100 MG TABLET (FP) PO SCH (21:59)
[2018-11-25] MEDS: IBUPROFEN 400 MG TABLET (FP) PO PRN (22:00)
[2018-11-26] MEDS ORDERED: METHADONE HCL 10 MG TABLET PO SCH (06:00)
[2018-11-26] MEDS ORDERED: METHADONE HCL 10 MG TABLET ONE (06:19)
[2018-11-26] MEDS ORDERED: METHADONE HCL 40 MG DISPERSABLE TABLET ONE (06:20)
[2018-11-26] MEDS: METHADONE 40 MG, METHADONE 20 MG PO SCH (06:21)
[2018-11-26] MEDS: DOCUSATE SODIUM 100 MG CAPSULE (FP) PO SCH (07:20)
[2018-11-26] MEDS: LIPASE/PROTEASE/AMYLASE 6,000 UNIT CAPSULE PO SCH (07:21)
[2018-11-26] MEDS ORDERED: INSULIN (NOVOLOG) ASPART 100 UNITS/ML 10ML VIAL ONE (07:32)
[2018-11-26] MEDS: INSULIN SLIDING SCALE (NOVOLOG) 1 VIAL SQ SCH (07:34)
[2018-11-26] MEDS: glipiZIDE 5 MG TABLET (FP) PO SCH (07:37)
[2018-11-26 07:46] VITALS: BP 129/93; PULSE 82; TEMP 97.9
[2018-11-26] MEDS: LISINOPRIL 20 MG TABLET (FP) PO SCH (09:21)
[2018-11-26] MEDS: ASPIRIN COATED 81 MG TABLET.EC PO SCH (09:21)
[2018-11-26] MEDS: NICOTINE 21 MG/24 HOURS TOPICAL PATCH TD SCH (09:21)
[2018-11-26] MEDS: PANTOPRAZOLE 40 MG TABLET (FP) PO SCH (09:21)
[2018-11-26] MEDS: amLODIPine BESYLATE 10 MG TABLET (FP) PO SCH (09:21)
[2018-11-26] MEDS: TAMSULOSIN HCL 0.4 MG CAP PO SCH (09:21)
[2018-11-26] MEDS: FERROUS SO4 325 MG TABLET (FP) PO SCH (09:21)
[2018-11-26] MEDS: PRENATAL VITAMINS W/ FOLIC ACID TABLET (FP) PO SCH (09:21)
[2018-11-26] MEDS: BUDESONIDE/FORMETEROL FUMARATE 80/4.5 mcg INHALER IH SCH (09:26)
--- NOTE | 2018-11-26 10:17 | PN ---
[facility] Progress Note Note: Pt was discharged today as scheduled. Alert o x 3. 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 This commercial lines underwriter spoke to his home pharmacist, Mr. Montoya at [place], [place]. Mr. Montoya confirmed that pt has all his medications posted by his primary care waiting to be picked up. Vital Signs - 24 hr 11/26/18 11/26/18 11/26/18 00:30 03:30 07:45 Temperature 97.9 F Pulse Rate 82 Respiratory 18 18 18 Rate Blood Pressure 129/93 Laboratory Tests 11/23/18 11/24/18 11/24/18 07:30 06:17 16:45 POC Glucometer 440 413 497 11/25/18 11/25/18 11/26/18 06:26 16:48 06:17 POC Glucometer 470 437 369 D/c'd today Medically stable Instructed to follow up care with pcp and CD aftercare as discussed with pt yesterday.
== END 2018-11-26 09:45 | disposition home or self-care (01) | DRG 772 ==
LOC: YASAS 15:32 → Y5N 15:33
PROVIDERS: ADMIT Neuromusculoskeletal Medicine & OMM; ATTEND Neuromusculoskeletal Medicine & OMM
PROC: HZ42ZZZ Group Counseling for Substance Abuse Treatment, Cognitive-Behavioral (ICD-10-PCS; principal; 2018-11-12)
DX: F10.20 Alcohol dependence, uncomplicated (principal); F11.20 Opioid dependence, uncomplicated; F13.20 Sedative, hypnotic or anxiolytic dependence, uncomplicated; F17.210 Nicotine dependence, cigarettes, uncomplicated; I10 Essential (primary) hypertension; N40.0 Benign prostatic hyperplasia without lower urinary tract symptoms; J44.9 Chronic obstructive pulmonary disease, unspecified; E11.9 Type 2 diabetes mellitus without complications; K21.9 Gastro-esophageal reflux disease without esophagitis; E78.00 Pure hypercholesterolemia, unspecified; I83.90 Asymptomatic varicose veins of unspecified lower extremity
CPT/HCPCS: 82962

== ENCOUNTER 2019-02-09 17:06 | Inpatient (IN) | payer OTHER ==
[2019-02-09 18:17] VITALS: BMI 25.8
[2019-02-09] MEDS ORDERED: NICOTINE POLACRILEX 2 MG GUM BUC PRN (19:25)
[2019-02-09] MEDS ORDERED: ACETAMINOPHEN 325 MG TABLET (FP) PO PRN ×2 (19:25)
[2019-02-09] MEDS ORDERED: IBUPROFEN 400 MG TABLET (FP) PO PRN (19:25)
[2019-02-09] MEDS ORDERED: MAGNESIUM CITRATE 300 ML BOTTLE PO PRN (19:25)
[2019-02-09] MEDS ORDERED: MAGNESIUM HYDROX 2400MG/30ML ORAL SUSPENSION 30 ML CUP PO PRN (19:25)
[2019-02-09] MEDS ORDERED: MENTHOL/PHENOL 1 EACH UD MM PRN (19:25)
[2019-02-09] MEDS ORDERED: BISMUTH SUBSALICYLATE 524 MG/30 ML UD PO PRN (19:25)
[2019-02-09] MEDS ORDERED: MAG HYDROX/AL HYDROX/SIMETH 30 ML UNIT-DOSE CUP PO PRN (19:25)
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
[2019-02-09] MEDS ORDERED: ALBUTEROL SO4 8 GM HFA INHALER IH PRN (19:27)
[2019-02-09] MEDS ORDERED: ALBUTEROL SO4 2.5/IPRATROPIUM 0.5 INH SOL 3 ML VIAL.NEB. NEB PRN (19:29)
[2019-02-09] MEDS: THIAMINE HCL 100 MG TABLET (FP) PO SCH (21:14)
[2019-02-09] MEDS: LORazepam 1 MG TABLET PO PRN (21:14)
[2019-02-09] MEDS: ATORVASTATIN CA 20 MG TABLET (FP) PO SCH (21:14)
[2019-02-09] MEDS: LORazepam 2 MG TABLET PO SCH (23:39)
[2019-02-09] MEDS: BUDESONIDE/FORMETEROL FUMARATE 80/4.5 mcg INHALER IH SCH (23:40)
[2019-02-09] MEDS: LIPASE/PROTEASE/AMYLASE 6,000 UNIT CAPSULE PO SCH (23:40)
[2019-02-10] MEDS: LORazepam 1 MG TABLET PO PRN (01:08)
[2019-02-10] MEDS: glipiZIDE 5 MG TABLET (FP) PO SCH (06:03)
[2019-02-10] MEDS: LORazepam 2 MG TABLET PO SCH ×4 (06:03→22:00)
[2019-02-10] MEDS: TAMSULOSIN HCL 0.4 MG CAP PO SCH (07:55)
[2019-02-10] MEDS: LIPASE/PROTEASE/AMYLASE 6,000 UNIT CAPSULE PO SCH ×2 (07:55→16:47)
[2019-02-10] MEDS ORDERED: METHADONE HCL 10 MG TABLET PO SCH (09:45)
[2019-02-10 10:09] LABS: HEMATOCRIT 30.2 % (35.4-49); HEMOGLOBIN 9.9 GM/dL (11.7-16.9); MCH 32.7 pg (25.7-33.7); MCHC 32.6 g/dl (32.0-35.9); MEAN CELL VOLUME 100.2 fl (80-96); MEAN PLT VOLUME 8.8 fl (7.5-11.1); PLATELET COUNT 244 K/MM3 (134-434); RBC 3.02 M/mm3 (4.00-5.60); WHITE BLOOD COUNT 5.4 K/mm3 (4.0-10.0)
[2019-02-10] MEDS: BUDESONIDE/FORMETEROL FUMARATE 80/4.5 mcg INHALER IH SCH ×2 (10:10→22:00)
[2019-02-10] MEDS: NICOTINE 14 MG/24 HOURS TOPICAL PATCH TD SCH (10:10)
[2019-02-10] MEDS: ASPIRIN COATED 81 MG TABLET.EC PO SCH (10:11)
[2019-02-10] MEDS: PRENATAL VITAMINS W/ FOLIC ACID TABLET (FP) PO SCH (10:11)
[2019-02-10] MEDS: FERROUS SO4 325 MG TABLET (FP) PO SCH (10:11)
[2019-02-10] MEDS: NIFEdipine E.R. 30 MG TABLET (FP) PO SCH (10:11)
[2019-02-10] MEDS: FAMOTIDINE 20 MG TABLET PO SCH (10:11)
[2019-02-10] MEDS ORDERED: METHADONE HCL 10 MG TABLET ONE (10:15)
[2019-02-10] MEDS ORDERED: METHADONE HCL 40 MG DISPERSABLE TABLET ONE (10:16)
[2019-02-10] MEDS: METHADONE 40 MG, METHADONE 30 MG PO SCH (10:16)
--- NOTE | 2019-02-10 10:45 | PN ---
[facility] CIWA - CIWA Score Nausea/Vomitin-Mild Nausea/No Vomiting Muscle Tremors: 2 Anxiety: 2 Agitation: 2 Paroxysmal Sweats: No Perspiration Orientation: 0-Oriented Tacttile Disturbances: 1-Very Mild Itch/Numbness Auditory Disturbances: 0-None Visual Disturbances: 0-None Headache: 2-Mild CIWA-Ar Total Score: 10 S Progress Note (SOAP) Subjective: alert,irritable,anxious,interrupted sleep,tremor,pain in the body,feel weak Objective: 02/10/19 10:44 Vital Signs Temperature 97.7 F 02/10/19 09:25 Pulse Rate 80 02/10/19 09:25 Respiratory Rate 16 02/10/19 09:25 Blood Pressure 143/93 02/10/19 09:25 O2 Sat by Pulse Oximetry (%) Laboratory Last Values WBC 5.4 K/mm3 (4.0-10.0) 02/10/19 08:00 RBC 3.02 M/mm3 (4.00-5.60) L 02/10/19 08:00 Hgb 9.9 GM/dL (11.7-16.9) L 02/10/19 08:00 Hct 30.2 % (35.4-49) L 02/10/19 08:00 MCV 100.2 fl (80-96) H 02/10/19 08:00 MCH 32.7 pg (25.7-33.7) 02/10/19 08:00 MCHC 32.6 g/dl (32.0-35.9) 02/10/19 08:00 RDW 16.0 % (11.9-15.9) H 02/10/19 08:00 Plt Count 244 K/MM3 (134-434) 02/10/19 08:00 MPV 8.8 fl (7.5-11.1) 02/10/19 08:00 POC Glucometer 196 UNITS (80-120) 02/10/19 06:02 labs pending Assessment: 02/10/19 10:45 withdrawal symptom Plan: continue detox ativan regimen,bgm monitoring,glucerna 1 can po bid
[2019-02-10 10:50] LABS: ALBUMIN 3.7 g/dl (3.4-5.0); BILIRUBIN,TOTAL 0.3 mg/dL (0.2-1); BLOOD UREA NITROGEN 44.5 mg/dL (7-18); CALCIUM 8.8 mg/dL (8.5-10.1); CREATININE 2.4 mg/dL (0.55-1.3); POTASSIUM 4.7 mmol/L (3.5-5.1); TOT PROT 7.6 g/dl (6.4-8.2)
--- NOTE | 2019-02-10 12:25 | EKG ---
Test Reason : Blood Pressure : / mmHG Vent. Rate : 094 BPM Atrial Rate : 094 BPM P-R Int : 176 ms QRS Dur : 086 ms QT Int : 382 ms P-R-T Axes : 009 054 064 degrees QTc Int : 477 ms NORMAL SINUS RHYTHM NORMAL ECG WHEN COMPARED WITH ECG OF 19-OCT-2018 13:22, NO SIGNIFICANT CHANGE WAS FOUND Confirmed by AUGUSTO ROBLES MD ([id number]) on 02/10/2019 12:24:55 PM Referred By: Confirmed By:AUGUSTO ROBLES MD
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
[2019-02-10 16:16] LABS: URINE APPEARANCE CLEAR; URINE BILIRUBIN NEGATIVE (NEGATIVE); URINE COLOR YELLOW; URINE GLUCOSE (UA) NEGATIVE (NEGATIVE); URINE KETONE NEGATIVE (NEGATIVE); URINE LEUK ESTERASE NEGATIVE (NEGATIVE); URINE NITRITE NEGATIVE (NEGATIVE); URINE PROTEIN TRACE (NEGATIVE); URINE UROBILINOGEN 0.2 mg/dL (0.2-1.0)
[2019-02-10] MEDS: THIAMINE HCL 100 MG TABLET (FP) PO SCH (22:00)
[2019-02-10] MEDS ORDERED: SUVOREXANT 10 MG TABLET PO PRN (22:00)
[2019-02-10] MEDS: ATORVASTATIN CA 20 MG TABLET (FP) PO SCH (22:00)
[2019-02-10] MEDS: QUEtiapine FUMARATE 200 MG TABLET PO SCH (22:00)
[2019-02-10] MEDS: MELATONIN 5 MG TABLETS PO PRN (22:01)
[2019-02-11] MEDS: LORazepam 1 MG TABLET PO PRN (02:08)
[2019-02-11] MEDS ORDERED: METHADONE HCL 40 MG DISPERSABLE TABLET ONE (04:38)
[2019-02-11] MEDS ORDERED: METHADONE HCL 10 MG TABLET ONE (04:38)
[2019-02-11] MEDS: METHADONE 40 MG, METHADONE 30 MG PO SCH (05:09)
[2019-02-11] MEDS: LORazepam 1 MG TABLET PO SCH ×4 (05:09→22:21)
[2019-02-11] MEDS: LIPASE/PROTEASE/AMYLASE 6,000 UNIT CAPSULE PO SCH ×3 (05:10→17:06)
[2019-02-11] MEDS: glipiZIDE 5 MG TABLET (FP) PO SCH (06:51)
[2019-02-11] MEDS: NICOTINE 14 MG/24 HOURS TOPICAL PATCH TD SCH (10:14)
[2019-02-11] MEDS: TAMSULOSIN HCL 0.4 MG CAP PO SCH (10:15)
[2019-02-11] MEDS: FAMOTIDINE 20 MG TABLET PO SCH (10:15)
[2019-02-11] MEDS: PRENATAL VITAMINS W/ FOLIC ACID TABLET (FP) PO SCH (10:15)
[2019-02-11] MEDS: FERROUS SO4 325 MG TABLET (FP) PO SCH (10:15)
[2019-02-11] MEDS: ASPIRIN COATED 81 MG TABLET.EC PO SCH (10:15)
[2019-02-11] MEDS: NIFEdipine E.R. 30 MG TABLET (FP) PO SCH (10:15)
[2019-02-11] MEDS: BUDESONIDE/FORMETEROL FUMARATE 80/4.5 mcg INHALER IH SCH ×2 (10:16→22:20)
[2019-02-11] MEDS: METHOCARBAMOL 500 MG TABLET PO PRN ×2 (10:21→22:24)
--- NOTE | 2019-02-11 14:06 | PN ---
S CIWA - CIWA Score Nausea/Vomitin-Mild Nausea/No Vomiting Muscle Tremors: 1-None Visible, but [place] Anxiety: 2 Agitation: 1-Slight > Activity Paroxysmal Sweats: 2 Orientation: 0-Oriented Tacttile Disturbances: 1-Very Mild Itch/Numbness Auditory Disturbances: 0-None Visual Disturbances: 0-None Headache: 0-None Present CIWA-Ar Total Score: 8 BHS Progress Note (SOAP) Subjective: interrupted sleep, sweats, chills Objective: 02/11/19 13:59 Vital Signs Temperature 97.9 F 02/11/19 13:47 Pulse Rate 80 02/11/19 13:47 Respiratory Rate 18 02/11/19 13:47 Blood Pressure 133/90 02/11/19 13:47 O2 Sat by Pulse Oximetry (%) Laboratory Tests 02/10/19 02/10/19 02/10/19 06:02 08:00 08:00 WBC 5.4 RBC 3.02 L Hgb 9.9 L Hct 30.2 L MCV 100.2 H MCH 32.7 MCHC 32.6 RDW 16.0 H Plt Count 244 MPV 8.8 Sodium 140 Potassium 4.7 Chloride 106 Carbon Dioxide 24 Anion Gap 10 BUN 44.5 H Creatinine 2.4 H Est GFR (CKD-EPI)AfAm 33.92 Est GFR (CKD-EPI)NonAf 29.27 POC Glucometer 196 Random Glucose 205 H Calcium 8.8 Total Bilirubin 0.3 AST 40 H ALT 64 H Alkaline Phosphatase 161 H Ammonia Total Protein 7.6 Albumin 3.7 Urine Color Urine Appearance Urine pH Ur Specific [place] Urine Protein Urine Glucose (UA) Urine Ketones Urine Blood Urine Nitrite Urine Bilirubin Urine Urobilinogen Ur Leukocyte Esterase RPR Titer 02/10/19 02/10/19 02/10/19 08:00 08:00 13:15 WBC RBC Hgb Hct MCV MCH MCHC RDW Plt Count MPV Sodium Potassium Chloride Carbon Dioxide Anion Gap BUN Creatinine Est GFR (CKD-EPI)AfAm Est GFR (CKD-EPI)NonAf POC Glucometer Random Glucose Calcium Total Bilirubin AST ALT Alkaline Phosphatase Ammonia 70.00 H Total Protein Albumin Urine Color Yellow Urine Appearance Clear Urine pH 7.0 D Ur Specific [place] 1.009 L Urine Protein Trace Urine Glucose (UA) Negative Urine Ketones Negative Urine Blood Negative Urine Nitrite Negative Urine Bilirubin Negative Urine Urobilinogen 0.2 Ur Leukocyte Esterase Negative RPR Titer Nonreactive 02/10/19 02/11/19 16:33 05:06 WBC RBC Hgb Hct MCV MCH MCHC RDW Plt Count MPV Sodium Potassium Chloride Carbon Dioxide Anion Gap BUN Creatinine Est GFR (CKD-EPI)AfAm Est GFR (CKD-EPI)NonAf POC Glucometer 200 389 Random Glucose Calcium Total Bilirubin AST ALT Alkaline Phosphatase Ammonia Total Protein Albumin Urine Color Urine Appearance Urine pH Ur Specific [place] Urine Protein Urine Glucose (UA) Urine Ketones Urine Blood Urine Nitrite Urine Bilirubin Urine Urobilinogen Ur Leukocyte Esterase RPR Titer pt aox3 in nad ambulating c/o jessenia foot discomfort 02/11/19 14:10 Assessment: 02/11/19 14:06 withdrawal sx's DM neuropathy copd 02/11/19 14:09 Plan: cont. detox increase fluids insulin sliding scale may use own sleeper 2nd to neuropathy nicotine patch -21mg /d
[2019-02-11] MEDS: INSULIN SLIDING SCALE (NOVOLOG) 1 VIAL SQ SCH ×2 (17:11→22:45)
[2019-02-11] MEDS: ATORVASTATIN CA 20 MG TABLET (FP) PO SCH (22:21)
[2019-02-11] MEDS: QUEtiapine FUMARATE 200 MG TABLET PO SCH (22:21)
[2019-02-11] MEDS: THIAMINE HCL 100 MG TABLET (FP) PO SCH (22:21)
[2019-02-11] MEDS: MELATONIN 5 MG TABLETS PO PRN (22:24)
[2019-02-12] MEDS ORDERED: LORazepam 0.5 MG TABLET PO PRN
[2019-02-12] MEDS ORDERED: METHADONE HCL 40 MG DISPERSABLE TABLET ONE (04:51)
[2019-02-12] MEDS ORDERED: METHADONE HCL 10 MG TABLET ONE (04:51)
[2019-02-12] MEDS: METHADONE 40 MG, METHADONE 30 MG PO SCH (05:34)
[2019-02-12] MEDS: LORazepam 0.5 MG TABLET PO SCH ×4 (05:34→22:24)
[2019-02-12] MEDS: LIPASE/PROTEASE/AMYLASE 6,000 UNIT CAPSULE PO SCH ×3 (05:35→17:37)
[2019-02-12] MEDS ORDERED: INSULIN SLIDING SCALE (NOVOLOG) 1 VIAL SQ ONE ×2 (05:55→12:14)
[2019-02-12] MEDS: INSULIN SLIDING SCALE (NOVOLOG) 1 VIAL SQ SCH ×4 (07:43→23:19)
[2019-02-12] MEDS: glipiZIDE 5 MG TABLET (FP) PO SCH (07:43)
[2019-02-12] MEDS: ASPIRIN COATED 81 MG TABLET.EC PO SCH (10:34)
[2019-02-12] MEDS: TAMSULOSIN HCL 0.4 MG CAP PO SCH (10:34)
[2019-02-12] MEDS: FERROUS SO4 325 MG TABLET (FP) PO SCH (10:34)
[2019-02-12] MEDS: NICOTINE 14 MG/24 HOURS TOPICAL PATCH TD SCH (10:34)
[2019-02-12] MEDS: PRENATAL VITAMINS W/ FOLIC ACID TABLET (FP) PO SCH (10:34)
[2019-02-12] MEDS: NIFEdipine E.R. 30 MG TABLET (FP) PO SCH (10:34)
[2019-02-12] MEDS: BUDESONIDE/FORMETEROL FUMARATE 80/4.5 mcg INHALER IH SCH ×2 (10:35→22:24)
[2019-02-12] MEDS: FAMOTIDINE 20 MG TABLET PO SCH (10:35)
[2019-02-12] MEDS ORDERED: IBUPROFEN 400 MG TABLET (FP) PO PRN (10:36)
[2019-02-12] MEDS: METHOCARBAMOL 500 MG TABLET PO PRN ×2 (10:39→22:28)
[2019-02-12] MEDS ORDERED: LACTULOSE 20 GM/30 ML UDC (FOR ORAL USE ONLY) PO PRN (11:00)
[2019-02-12] MEDS: IBUPROFEN 400 MG TABLET (FP) PO PRN ×2 (11:07→22:27)
--- NOTE | 2019-02-12 11:22 | PN ---
S CIWA - CIWA Score Nausea/Vomitin-No Nausea/No Vomiting Muscle Tremors: 2 Anxiety: 1-Mildly Anxious Agitation: 2 Paroxysmal Sweats: No Perspiration Orientation: 0-Oriented Tacttile Disturbances: 0-None Auditory Disturbances: 0-None Visual Disturbances: 0-None Headache: 0-None Present CIWA-Ar Total Score: 5 BHS Progress Note (SOAP) Subjective: body aches irritable agitation Objective: 02/12/19 11:21 Vital Signs Temperature 97.7 F 02/12/19 09:23 Pulse Rate 130 H 02/12/19 09:23 Respiratory Rate 18 02/12/19 09:23 Blood Pressure 100/77 02/12/19 09:23 O2 Sat by Pulse Oximetry (%) Laboratory Tests 02/10/19 02/10/19 02/10/19 06:02 08:00 08:00 WBC 5.4 RBC 3.02 L Hgb 9.9 L Hct 30.2 L MCV 100.2 H MCH 32.7 MCHC 32.6 RDW 16.0 H Plt Count 244 MPV 8.8 Sodium 140 Potassium 4.7 Chloride 106 Carbon Dioxide 24 Anion Gap 10 BUN 44.5 H Creatinine 2.4 H Est GFR (CKD-EPI)AfAm 33.92 Est GFR (CKD-EPI)NonAf 29.27 POC Glucometer 196 Random Glucose 205 H Calcium 8.8 Total Bilirubin 0.3 AST 40 H ALT 64 H Alkaline Phosphatase 161 H Ammonia Total Protein 7.6 Albumin 3.7 Urine Color Urine Appearance Urine pH Ur Specific [place] Urine Protein Urine Glucose (UA) Urine Ketones Urine Blood Urine Nitrite Urine Bilirubin Urine Urobilinogen Ur Leukocyte Esterase RPR Titer 02/10/19 02/10/19 02/10/19 08:00 08:00 13:15 WBC RBC Hgb Hct MCV MCH MCHC RDW Plt Count MPV Sodium Potassium Chloride Carbon Dioxide Anion Gap BUN Creatinine Est GFR (CKD-EPI)AfAm Est GFR (CKD-EPI)NonAf POC Glucometer Random Glucose Calcium Total Bilirubin AST ALT Alkaline Phosphatase Ammonia 70.00 H Total Protein Albumin Urine Color Yellow Urine Appearance Clear Urine pH 7.0 D Ur Specific [place] 1.009 L Urine Protein Trace Urine Glucose (UA) Negative Urine Ketones Negative Urine Blood Negative Urine Nitrite Negative Urine Bilirubin Negative Urine Urobilinogen 0.2 Ur Leukocyte Esterase Negative RPR Titer Nonreactive 02/10/19 02/11/19 02/11/19 16:33 05:06 16:35 WBC RBC Hgb Hct MCV MCH MCHC RDW Plt Count MPV Sodium Potassium Chloride Carbon Dioxide Anion Gap BUN Creatinine Est GFR (CKD-EPI)AfAm Est GFR (CKD-EPI)NonAf POC Glucometer 200 389 358 Random Glucose Calcium Total Bilirubin AST ALT Alkaline Phosphatase Ammonia Total Protein Albumin Urine Color Urine Appearance Urine pH Ur Specific [place] Urine Protein Urine Glucose (UA) Urine Ketones Urine Blood Urine Nitrite Urine Bilirubin Urine Urobilinogen Ur Leukocyte Esterase RPR Titer 02/11/19 02/12/19 22:39 05:37 WBC RBC Hgb Hct MCV MCH MCHC RDW Plt Count MPV Sodium Potassium Chloride Carbon Dioxide Anion Gap BUN Creatinine Est GFR (CKD-EPI)AfAm Est GFR (CKD-EPI)NonAf POC Glucometer 195 320 Random Glucose Calcium Total Bilirubin AST ALT Alkaline Phosphatase Ammonia Total Protein Albumin Urine Color Urine Appearance Urine pH Ur Specific [place] Urine Protein Urine Glucose (UA) Urine Ketones Urine Blood Urine Nitrite Urine Bilirubin Urine Urobilinogen Ur Leukocyte Esterase RPR Titer labs noted elevated ammonia level noted; laculose ordered aaox3 ambulating no acute distress Assessment: 02/12/19 11:21 withdrawal sx Plan: continue detox increase fluids laculose ordered motrin 800mg tid prn
[2019-02-12] MEDS: QUEtiapine FUMARATE 200 MG TABLET PO SCH (22:24)
[2019-02-12] MEDS: ATORVASTATIN CA 20 MG TABLET (FP) PO SCH (22:24)
[2019-02-12] MEDS: THIAMINE HCL 100 MG TABLET (FP) PO SCH (22:24)
[2019-02-12] MEDS: LACTULOSE 20 GM/30 ML UDC (FOR ORAL USE ONLY) PO SCH (22:24)
[2019-02-12] MEDS: MELATONIN 5 MG TABLETS PO PRN (22:29)
[2019-02-13] MEDS ORDERED: METHADONE HCL 10 MG TABLET ONE (03:16)
[2019-02-13] MEDS ORDERED: METHADONE HCL 40 MG DISPERSABLE TABLET ONE (03:17)
[2019-02-13] MEDS ORDERED: LORazepam 0.5 MG TABLET PO ONE (05:00)
[2019-02-13] MEDS: METHADONE 40 MG, METHADONE 30 MG PO SCH (05:59)
[2019-02-13] MEDS: LACTULOSE 20 GM/30 ML UDC (FOR ORAL USE ONLY) PO SCH (06:03)
[2019-02-13] MEDS: glipiZIDE 5 MG TABLET (FP) PO SCH (06:51)
[2019-02-13] MEDS: LIPASE/PROTEASE/AMYLASE 6,000 UNIT CAPSULE PO SCH ×3 (06:51→17:07)
[2019-02-13] MEDS: INSULIN SLIDING SCALE (NOVOLOG) 1 VIAL SQ SCH ×3 (07:39→17:02)
[2019-02-13] MEDS: FAMOTIDINE 20 MG TABLET PO SCH (10:27)
[2019-02-13] MEDS: TAMSULOSIN HCL 0.4 MG CAP PO SCH (10:27)
[2019-02-13] MEDS: ASPIRIN COATED 81 MG TABLET.EC PO SCH (10:27)
[2019-02-13] MEDS: NICOTINE 14 MG/24 HOURS TOPICAL PATCH TD SCH (10:28)
[2019-02-13] MEDS: PRENATAL VITAMINS W/ FOLIC ACID TABLET (FP) PO SCH (10:28)
[2019-02-13] MEDS: FERROUS SO4 325 MG TABLET (FP) PO SCH (10:28)
[2019-02-13] MEDS: BUDESONIDE/FORMETEROL FUMARATE 80/4.5 mcg INHALER IH SCH (10:30)
[2019-02-13] MEDS: NIFEdipine E.R. 30 MG TABLET (FP) PO SCH (10:31)
[2019-02-13] MEDS: METHOCARBAMOL 500 MG TABLET PO PRN (10:32)
[2019-02-13] MEDS: IBUPROFEN 400 MG TABLET (FP) PO PRN (10:33)
--- NOTE | 2019-02-13 15:52 | DS ---
[facility] Detox Discharge Summary Admission Date: 02/09/19 Discharge Date: 02/13/19 - History Present History: Alcohol Dependence, Sedative Dependence Additional Comments: Patient completed detox successfully and awaiting admission to [facility]. Patient instructed to follow up with his PCP post discharge. Pertinent Past History: HTN Neuropathy DMT2 GERD HLD Constipation - Physical Exam Results Vital Signs: Vital Signs Temperature 98.6 F 02/13/19 13:59 Pulse Rate 96 H 02/13/19 13:59 Respiratory Rate 18 02/13/19 13:59 Blood Pressure 127/82 02/13/19 13:59 O2 Sat by Pulse Oximetry (%) Pertinent Admission Physical Exam Findings: Withdrawal sxs Laboratory Tests 02/10/19 02/10/19 02/10/19 06:02 08:00 08:00 WBC 5.4 RBC 3.02 L Hgb 9.9 L Hct 30.2 L MCV 100.2 H MCH 32.7 MCHC 32.6 RDW 16.0 H Plt Count 244 MPV 8.8 Sodium 140 Potassium 4.7 Chloride 106 Carbon Dioxide 24 Anion Gap 10 BUN 44.5 H Creatinine 2.4 H Est GFR (CKD-EPI)AfAm 33.92 Est GFR (CKD-EPI)NonAf 29.27 POC Glucometer 196 Random Glucose 205 H Calcium 8.8 Total Bilirubin 0.3 AST 40 H ALT 64 H Alkaline Phosphatase 161 H Ammonia Total Protein 7.6 Albumin 3.7 Urine Color Urine Appearance Urine pH Ur Specific [place] Urine Protein Urine Glucose (UA) Urine Ketones Urine Blood Urine Nitrite Urine Bilirubin Urine Urobilinogen Ur Leukocyte Esterase RPR Titer 02/10/19 02/10/19 02/10/19 08:00 08:00 13:15 WBC RBC Hgb Hct MCV MCH MCHC RDW Plt Count MPV Sodium Potassium Chloride Carbon Dioxide Anion Gap BUN Creatinine Est GFR (CKD-EPI)AfAm Est GFR (CKD-EPI)NonAf POC Glucometer Random Glucose Calcium Total Bilirubin AST ALT Alkaline Phosphatase Ammonia 70.00 H Total Protein Albumin Urine Color Yellow Urine Appearance Clear Urine pH 7.0 D Ur Specific [place] 1.009 L Urine Protein Trace Urine Glucose (UA) Negative Urine Ketones Negative Urine Blood Negative Urine Nitrite Negative Urine Bilirubin Negative Urine Urobilinogen 0.2 Ur Leukocyte Esterase Negative RPR Titer Nonreactive 02/10/19 02/11/19 02/11/19 16:33 05:06 16:35 WBC RBC Hgb Hct MCV MCH MCHC RDW Plt Count MPV Sodium Potassium Chloride Carbon Dioxide Anion Gap BUN Creatinine Est GFR (CKD-EPI)AfAm Est GFR (CKD-EPI)NonAf POC Glucometer 200 389 358 Random Glucose Calcium Total Bilirubin AST ALT Alkaline Phosphatase Ammonia Total Protein Albumin Urine Color Urine Appearance Urine pH Ur Specific [place] Urine Protein Urine Glucose (UA) Urine Ketones Urine Blood Urine Nitrite Urine Bilirubin Urine Urobilinogen Ur Leukocyte Esterase RPR Titer 02/11/19 02/12/19 02/12/19 22:39 05:37 12:06 WBC RBC Hgb Hct MCV MCH MCHC RDW Plt Count MPV Sodium Potassium Chloride Carbon Dioxide Anion Gap BUN Creatinine Est GFR (CKD-EPI)AfAm Est GFR (CKD-EPI)NonAf POC Glucometer 195 320 204 Random Glucose Calcium Total Bilirubin AST ALT Alkaline Phosphatase Ammonia Total Protein Albumin Urine Color Urine Appearance Urine pH Ur Specific [place] Urine Protein Urine Glucose (UA) Urine Ketones Urine Blood Urine Nitrite Urine Bilirubin Urine Urobilinogen Ur Leukocyte Esterase RPR Titer 02/12/19 02/12/19 02/13/19 17:05 20:50 05:58 WBC RBC Hgb Hct MCV MCH MCHC RDW Plt Count MPV Sodium Potassium Chloride Carbon Dioxide Anion Gap BUN Creatinine Est GFR (CKD-EPI)AfAm Est GFR (CKD-EPI)NonAf POC Glucometer 222 165 262 Random Glucose Calcium Total Bilirubin AST ALT Alkaline Phosphatase Ammonia Total Protein Albumin Urine Color Urine Appearance Urine pH Ur Specific [place] Urine Protein Urine Glucose (UA) Urine Ketones Urine Blood Urine Nitrite Urine Bilirubin Urine Urobilinogen Ur Leukocyte Esterase RPR Titer 02/13/19 11:37 WBC RBC Hgb Hct MCV MCH MCHC RDW Plt Count MPV Sodium Potassium Chloride Carbon Dioxide Anion Gap BUN Creatinine Est GFR (CKD-EPI)AfAm Est GFR (CKD-EPI)NonAf POC Glucometer 160 Random Glucose Calcium Total Bilirubin AST ALT Alkaline Phosphatase Ammonia Total Protein Albumin Urine Color Urine Appearance Urine pH Ur Specific [place] Urine Protein Urine Glucose (UA) Urine Ketones Urine Blood Urine Nitrite Urine Bilirubin Urine Urobilinogen Ur Leukocyte Esterase RPR Titer Labs reviewed: anemia, CKD vs ANGELO (encouraged PO water intake, repeat CMP in AM) , elevated LFTs (repeat hepatic panel in AM), hyperglycemia noted - Treatment Hospital Course: Detox Protocol Followed, Detoxed Safely, Responded well, Discharged Condition Good, Rehab Referral Accepted - Medication Discharge Medications: Ambulatory Orders Albuterol Sulfate Inhaler - [Ventolin HFA Inhaler -] 2 inh IH Q4H PRN #1 inh 11/28 Budesonide/Formeterol Fumarate [SYMBICORT 80/4.5mcg -] 2 inh PO BID 07/08/18 Famotidine 40 mg PO DAILY 10/19/18 Aspirin [Aspirin EC] 81 mg PO DAILY 11/09/18 Atorvastatin Ca [Lipitor] 20 mg PO HS 11/09/18 Ferrous Sulfate [Feosol] 325 mg PO DAILY 11/09/18 Lipase/Protease/Amylase [Creon Dr 6,000 Units Capsule] 4 cap PO BID 11/09/18 Tamsulosin HCl [Flomax -] 0.4 mg PO DAILY@0830 11/09/18 Glipizide 5 mg PO DAILY 11/23/18 Nifedipine ER [Procardia XL -] 1 tablet PO DAILY 02/09/19 Quetiapine Fumarate [Seroquel -] 200 mg PO HS #30 tablet 02/09/19 - Diagnosis (1) Constipation Current Visit: Yes Status: Acute (2) COPD (chronic obstructive pulmonary disease) Current Visit: Yes Status: Chronic Qualifiers: COPD type: unspecified COPD Qualified Code(s): J44.9 - Chronic obstructive pulmonary disease, unspecified (3) DM2 (diabetes mellitus, type 2) Current Visit: Yes Status: Chronic Qualifiers: Diabetes mellitus penitentiary insulin use: without penitentiary use Diabetes mellitus complication status: with hyperglycemia Qualified Code(s): E11.65 - Type 2 diabetes mellitus with hyperglycemia (4) Diabetic neuropathy Current Visit: Yes Status: Chronic (5) GERD (gastroesophageal reflux disease) Current Visit: Yes Status: Chronic Qualifiers: Esophagitis presence: esophagitis presence not specified Qualified Code(s) : K21.9 - Gastro-esophageal reflux disease without esophagitis (6) Hypercholesteremia Current Visit: Yes Status: Chronic (7) Hypertension Current Visit: Yes Status: Chronic Qualifiers: Hypertension type: essential hypertension Qualified Code(s): I10 - Essential (primary) hypertension (8) Nicotine dependence Current Visit: Yes Status: Chronic Qualifiers: Nicotine product type: cigarettes Substance use status: uncomplicated Qualified Code(s): F17.210 - Nicotine dependence, cigarettes, uncomplicated (9) ANGELO (acute kidney injury) Current Visit: Yes Status: Acute (10) Alcohol dependence with uncomplicated withdrawal Current Visit: Yes Status: Acute (11) Anemia Current Visit: Yes Status: Chronic Qualifiers: Anemia type: unspecified type Qualified Code(s): D64.9 - Anemia, unspecified (12) Benzodiazepine dependence Current Visit: Yes Status: Acute (13) Opioid dependence on agonist therapy Current Visit: Yes Status: Chronic (14) Elevated LFTs Current Visit: Yes Status: Acute - AMA Did Patient Leave Against Medical Advice: No (Await admission to [facility])
[2019-02-13 17:20] VITALS: BP 153/91; PULSE 82; TEMP 98.8
== END 2019-02-13 18:30 | disposition other institution (70) | DRG 773 ==
LOC: YASAS 17:06 → Y6N 19:45
PROVIDERS: ADMIT Allergy & Immunology; ATTEND Allergy & Immunology
PROC: HZ2ZZZZ Detoxification Services for Substance Abuse Treatment (ICD-10-PCS; principal; 2019-02-09)
DX: F10.230 Alcohol dependence with withdrawal, uncomplicated (principal); F11.20 Opioid dependence, uncomplicated; F13.230 Sedative, hypnotic or anxiolytic dependence with withdrawal, uncomplicated; F17.210 Nicotine dependence, cigarettes, uncomplicated; F31.9 Bipolar disorder, unspecified; F19.280 Other psychoactive substance dependence with psychoactive substance-induced anxiety disorder; F19.282 Other psychoactive substance dependence with psychoactive substance-induced sleep disorder; I10 Essential (primary) hypertension; E11.65 Type 2 diabetes mellitus with hyperglycemia; E11.42 Type 2 diabetes mellitus with diabetic polyneuropathy; K59.00 Constipation, unspecified; J44.9 Chronic obstructive pulmonary disease, unspecified; K21.9 Gastro-esophageal reflux disease without esophagitis; E78.5 Hyperlipidemia, unspecified; M17.9 Osteoarthritis of knee, unspecified; D64.9 Anemia, unspecified; R00.0 Tachycardia, unspecified; R16.0 Hepatomegaly, not elsewhere classified; R94.5 Abnormal results of liver function studies; Z79.84 Long term (current) use of oral hypoglycemic drugs; E72.20 Disorder of urea cycle metabolism, unspecified; Z87.19 Personal history of other diseases of the digestive system
CPT/HCPCS: 36415; 80053; 81003; 82140; 82962; 85027; 86593; 93005; 93010

== ENCOUNTER 2019-02-13 18:18 | Inpatient (IN) | payer OTHER ==
[2019-02-13] MEDS ORDERED: MAGNESIUM HYDROX 2400MG/30ML ORAL SUSPENSION 30 ML CUP PO PRN (19:37)
[2019-02-13] MEDS ORDERED: MAGNESIUM CITRATE 300 ML BOTTLE PO PRN (19:37)
[2019-02-13] MEDS ORDERED: LOPERAMIDE HCL 2 MG CAPSULE PO PRN (19:37)
[2019-02-13] MEDS ORDERED: MENTHOL/PHENOL 1 EACH UD MM PRN (19:37)
[2019-02-13] MEDS ORDERED: IBUPROFEN 400 MG TABLET (FP) PO PRN (19:37)
[2019-02-13] MEDS ORDERED: MAG HYDROX/AL HYDROX/SIMETH 30 ML UNIT-DOSE CUP PO PRN (19:37)
[2019-02-13] MEDS ORDERED: ACETAMINOPHEN 325 MG TABLET (FP) PO PRN (19:37)
[2019-02-13] MEDS ORDERED: guaiFENesin 200 MG/10 ML 10 ML UNIT-DOSE CUPS PO PRN (19:37)
[2019-02-13] MEDS: BUDESONIDE/FORMETEROL FUMARATE 80/4.5 mcg INHALER IH SCH (21:15)
[2019-02-13] MEDS: THIAMINE HCL 100 MG TABLET (FP) PO SCH (21:15)
[2019-02-13] MEDS: ATORVASTATIN CA 20 MG TABLET (FP) PO SCH (21:15)
[2019-02-13] MEDS: MELATONIN 5 MG TABLETS PO PRN (21:16)
[2019-02-14] MEDS ORDERED: hydrOXYzine PAMOATE 50 MG CAPSULE (FP) PO ONE (02:46)
[2019-02-14] MEDS: IBUPROFEN 400 MG TABLET (FP) PO PRN ×3 (02:59→14:12)
[2019-02-14] MEDS: METHOCARBAMOL 500 MG TABLET PO PRN ×2 (02:59→17:13)
[2019-02-14] MEDS ORDERED: METHADONE HCL 40 MG DISPERSABLE TABLET ONE (05:35)
[2019-02-14] MEDS ORDERED: METHADONE HCL 10 MG TABLET ONE (05:35)
[2019-02-14] MEDS: METHADONE 40 MG, METHADONE 30 MG PO SCH (05:59)
[2019-02-14] MEDS ORDERED: METHADONE HCL 10 MG TABLET PO SCH (06:00)
[2019-02-14] MEDS: glipiZIDE 5 MG TABLET (FP) PO SCH (06:55)
[2019-02-14] MEDS: LIPASE/PROTEASE/AMYLASE 6,000 UNIT CAPSULE PO SCH ×2 (07:59→17:11)
[2019-02-14] MEDS: PRENATAL VITAMINS W/ FOLIC ACID TABLET (FP) PO SCH (09:41)
[2019-02-14] MEDS: FERROUS SO4 325 MG TABLET (FP) PO SCH (09:41)
[2019-02-14] MEDS: ASPIRIN COATED 81 MG TABLET.EC PO SCH (09:41)
[2019-02-14] MEDS: TAMSULOSIN HCL 0.4 MG CAP PO SCH (09:41)
[2019-02-14] MEDS: NIFEdipine E.R. 30 MG TABLET (FP) PO SCH (09:42)
[2019-02-14] MEDS: FAMOTIDINE 20 MG TABLET PO SCH (09:42)
[2019-02-14] MEDS: BUDESONIDE/FORMETEROL FUMARATE 80/4.5 mcg INHALER IH SCH ×2 (10:59→21:10)
[2019-02-14] MEDS ORDERED: PT OWN MED DRAWER 7, Y5N ONE (11:36)
[2019-02-14] MEDS ORDERED: FLU VACCINE QUAD 60 MCG/0.5 ML (MDV 19-20) IM ONE (12:00)
[2019-02-14] MEDS: DOCUSATE SODIUM 100 MG CAPSULE (FP) PO SCH ×2 (14:12→21:09)
[2019-02-14] MEDS: P-EPHED 60MG/TRIPROLIDI 2.5MG TABLET PO PRN ×2 (17:13→21:07)
[2019-02-14] MEDS: INSULIN SLIDING SCALE (NOVOLOG) 1 VIAL SQ SCH (21:06)
[2019-02-14] MEDS: QUEtiapine FUMARATE 200 MG TABLET PO SCH (21:09)
[2019-02-14] MEDS: ATORVASTATIN CA 20 MG TABLET (FP) PO SCH (21:09)
[2019-02-14] MEDS: MELATONIN 5 MG TABLETS PO PRN (21:09)
[2019-02-14] MEDS: THIAMINE HCL 100 MG TABLET (FP) PO SCH (21:09)
--- NOTE | 2019-02-14 21:58 | PN ---
[facility] Progress Note Note: Laboratory Tests 02/14/19 02/14/19 02/14/19 05:58 17:17 21:03 POC Glucometer 165 264 181 LABS 02/10/19 BUN 44 CREAT 2.2 WILL REPEAT CMP IN AM. MONITOR CLINICALLY.
[2019-02-14] MEDS ORDERED: INSULIN (NOVOLOG) ASPART 100 UNITS/ML 10ML VIAL ONE (22:14)
[2019-02-15] MEDS ORDERED: METHADONE HCL 10 MG TABLET ONE (05:08)
[2019-02-15] MEDS ORDERED: METHADONE HCL 40 MG DISPERSABLE TABLET ONE (05:08)
[2019-02-15] MEDS: METHOCARBAMOL 500 MG TABLET PO PRN ×3 (05:53→21:02)
[2019-02-15] MEDS: IBUPROFEN 400 MG TABLET (FP) PO PRN ×3 (05:53→19:36)
[2019-02-15] MEDS: METHADONE 40 MG, METHADONE 30 MG PO SCH (05:54)
[2019-02-15] MEDS: DOCUSATE SODIUM 100 MG CAPSULE (FP) PO SCH ×3 (05:54→21:01)
[2019-02-15] MEDS ORDERED: INSULIN (NOVOLOG) ASPART 100 UNITS/ML 10ML VIAL ONE ×2 (06:05→11:19)
[2019-02-15] MEDS: glipiZIDE 5 MG TABLET (FP) PO SCH (06:05)
[2019-02-15] MEDS: INSULIN SLIDING SCALE (NOVOLOG) 1 VIAL SQ SCH ×4 (06:05→21:04)
[2019-02-15] MEDS: LIPASE/PROTEASE/AMYLASE 6,000 UNIT CAPSULE PO SCH ×2 (07:26→16:45)
[2019-02-15 09:45] LABS: ALBUMIN 3.9 g/dl (3.4-5.0); BILIRUBIN,TOTAL 0.3 mg/dL (0.2-1); BLOOD UREA NITROGEN 29.6 mg/dL (7-18); CALCIUM 9.1 mg/dL (8.5-10.1); POTASSIUM 4.4 mmol/L (3.5-5.1); TOT PROT 7.4 g/dl (6.4-8.2)
[2019-02-15] MEDS ORDERED: ALBUTEROL SO4 0.083% IH SOL 2.5 MG/3 ML VIAL.NEB. NEB PRN (10:36)
--- NOTE | 2019-02-15 10:39 | PN ---
[facility] Progress Note Note: pt requesting nicotine patch stating he smokes 1 ppd and 14 mg he took in detox not holding him. States I don't use the gum anyway". Pt also Requesting insulin sliding scale to start from 201 mg/dl instead of current start from 251 mg/dl stating "that's how i take it at home". C/o "I use nebulizer tx and would like to start back on it because i have copd". Pt currently on albuterol inhaler and symbicort inhaler. Appears very anxious and irritable stating due to above demands he's been waiting to be seen. Pt reports sob on/off but not presenting at the time seen. Vital Signs - 24 hr 02/14/19 02/15/19 02/15/19 14:11 00:30 03:30 Temperature Pulse Rate 92 H Respiratory 18 18 18 Rate Blood Pressure 140/94 02/15/19 02/15/19 07:17 09:54 Temperature 97.8 F Pulse Rate 77 81 Respiratory 18 Rate Blood Pressure 134/97 143/100 Alert o x 3 Oob Ambulating with steady gait lungs: cta, jessenia. no wheeze or rhonchi A/P Hx DM copd Nebulizer tx prn as directed adjust insulin sliding scale as directed Reorder/increase nicotine patch to 21 mg as directed.
[2019-02-15] MEDS ORDERED: ALBUTEROL SO4 0.083% IH SOL 2.5 MG/3 ML VIAL.NEB. NEB ONE (10:50)
[2019-02-15] MEDS: FAMOTIDINE 20 MG TABLET PO SCH (10:57)
[2019-02-15] MEDS: ASPIRIN COATED 81 MG TABLET.EC PO SCH (10:57)
[2019-02-15] MEDS: TAMSULOSIN HCL 0.4 MG CAP PO SCH (10:57)
[2019-02-15] MEDS: NIFEdipine E.R. 30 MG TABLET (FP) PO SCH (10:57)
[2019-02-15] MEDS: FERROUS SO4 325 MG TABLET (FP) PO SCH (10:57)
[2019-02-15] MEDS: BUDESONIDE/FORMETEROL FUMARATE 80/4.5 mcg INHALER IH SCH ×2 (11:06→21:04)
[2019-02-15] MEDS: NICOTINE 21 MG/24 HOURS TOPICAL PATCH TD SCH (11:07)
[2019-02-15] MEDS: PRENATAL VITAMINS W/ FOLIC ACID TABLET (FP) PO SCH (11:08)
[2019-02-15] MEDS: P-EPHED 60MG/TRIPROLIDI 2.5MG TABLET PO PRN (14:56)
[2019-02-15] MEDS: ATORVASTATIN CA 20 MG TABLET (FP) PO SCH (21:01)
[2019-02-15] MEDS: QUEtiapine FUMARATE 200 MG TABLET PO SCH (21:01)
[2019-02-15] MEDS: MELATONIN 5 MG TABLETS PO PRN (21:04)
[2019-02-15] MEDS: THIAMINE HCL 100 MG TABLET (FP) PO SCH (21:04)
[2019-02-16] MEDS ORDERED: METHADONE HCL 10 MG TABLET ONE (05:17)
[2019-02-16] MEDS ORDERED: METHADONE HCL 40 MG DISPERSABLE TABLET ONE (05:17)
[2019-02-16] MEDS: DOCUSATE SODIUM 100 MG CAPSULE (FP) PO SCH ×3 (05:45→21:20)
[2019-02-16] MEDS: METHADONE 40 MG, METHADONE 30 MG PO SCH (05:45)
[2019-02-16] MEDS: METHOCARBAMOL 500 MG TABLET PO PRN ×3 (05:48→21:23)
[2019-02-16] MEDS: IBUPROFEN 400 MG TABLET (FP) PO PRN ×3 (05:48→21:24)
[2019-02-16] MEDS ORDERED: INSULIN (NOVOLOG) ASPART 100 UNITS/ML 10ML VIAL ONE ×3 (06:47→16:25)
[2019-02-16] MEDS: LIPASE/PROTEASE/AMYLASE 6,000 UNIT CAPSULE PO SCH ×2 (07:17→16:30)
[2019-02-16] MEDS: INSULIN SLIDING SCALE (NOVOLOG) 1 VIAL SQ SCH ×4 (07:17→21:23)
[2019-02-16] MEDS: glipiZIDE 5 MG TABLET (FP) PO SCH (07:18)
[2019-02-16] MEDS: PRENATAL VITAMINS W/ FOLIC ACID TABLET (FP) PO SCH (09:09)
[2019-02-16] MEDS: ASPIRIN COATED 81 MG TABLET.EC PO SCH (09:09)
[2019-02-16] MEDS: FERROUS SO4 325 MG TABLET (FP) PO SCH (09:09)
[2019-02-16] MEDS: FAMOTIDINE 20 MG TABLET PO SCH (09:09)
[2019-02-16] MEDS: NIFEdipine E.R. 30 MG TABLET (FP) PO SCH (09:09)
[2019-02-16] MEDS: TAMSULOSIN HCL 0.4 MG CAP PO SCH (09:09)
[2019-02-16] MEDS: NICOTINE 21 MG/24 HOURS TOPICAL PATCH TD SCH (09:10)
[2019-02-16] MEDS: BUDESONIDE/FORMETEROL FUMARATE 80/4.5 mcg INHALER IH SCH ×2 (09:10→21:21)
[2019-02-16] MEDS ORDERED: PT OWN MED DRAWER 7, Y5N ONE (11:59)
[2019-02-16] MEDS: NICOTINE POLACRILEX 2 MG GUM BUC PRN (16:28)
[2019-02-16] MEDS: ATORVASTATIN CA 20 MG TABLET (FP) PO SCH (21:20)
[2019-02-16] MEDS: MELATONIN 5 MG TABLETS PO PRN (21:20)
[2019-02-16] MEDS: QUEtiapine FUMARATE 200 MG TABLET PO SCH (21:20)
[2019-02-16] MEDS: THIAMINE HCL 100 MG TABLET (FP) PO SCH (21:20)
[2019-02-17] MEDS ORDERED: PT OWN MED DRAWER 7, Y5N ONE (04:04)
[2019-02-17] MEDS ORDERED: METHADONE HCL 10 MG TABLET ONE (06:01)
[2019-02-17] MEDS ORDERED: METHADONE HCL 40 MG DISPERSABLE TABLET ONE (06:01)
[2019-02-17] MEDS: INSULIN SLIDING SCALE (NOVOLOG) 1 VIAL SQ SCH ×4 (06:11→21:02)
[2019-02-17] MEDS: glipiZIDE 5 MG TABLET (FP) PO SCH (06:11)
[2019-02-17] MEDS: METHADONE 40 MG, METHADONE 30 MG PO SCH (06:11)
[2019-02-17] MEDS: DOCUSATE SODIUM 100 MG CAPSULE (FP) PO SCH ×3 (06:11→21:00)
[2019-02-17] MEDS: METHOCARBAMOL 500 MG TABLET PO PRN ×3 (06:12→20:56)
[2019-02-17] MEDS: IBUPROFEN 400 MG TABLET (FP) PO PRN ×3 (06:12→20:57)
[2019-02-17] MEDS ORDERED: INSULIN (NOVOLOG) ASPART 100 UNITS/ML 10ML VIAL ONE ×2 (06:57→11:55)
[2019-02-17] MEDS: LIPASE/PROTEASE/AMYLASE 6,000 UNIT CAPSULE PO SCH ×2 (07:55→16:39)
[2019-02-17] MEDS: TAMSULOSIN HCL 0.4 MG CAP PO SCH (07:55)
[2019-02-17] MEDS: NICOTINE POLACRILEX 2 MG GUM BUC PRN (08:09)
[2019-02-17] MEDS: NICOTINE 21 MG/24 HOURS TOPICAL PATCH TD SCH (09:54)
[2019-02-17] MEDS: ASPIRIN COATED 81 MG TABLET.EC PO SCH (09:54)
[2019-02-17] MEDS: BUDESONIDE/FORMETEROL FUMARATE 80/4.5 mcg INHALER IH SCH ×2 (09:54→21:00)
[2019-02-17] MEDS: FERROUS SO4 325 MG TABLET (FP) PO SCH (09:54)
[2019-02-17] MEDS: PRENATAL VITAMINS W/ FOLIC ACID TABLET (FP) PO SCH (09:54)
[2019-02-17] MEDS: FAMOTIDINE 20 MG TABLET PO SCH (09:54)
[2019-02-17] MEDS: NIFEdipine E.R. 30 MG TABLET (FP) PO SCH (09:56)
[2019-02-17] MEDS: THIAMINE HCL 100 MG TABLET (FP) PO SCH (21:00)
[2019-02-17] MEDS: QUEtiapine FUMARATE 200 MG TABLET PO SCH (21:00)
[2019-02-17] MEDS: ATORVASTATIN CA 20 MG TABLET (FP) PO SCH (21:00)
[2019-02-17] MEDS: MELATONIN 5 MG TABLETS PO PRN (21:00)
[2019-02-18] MEDS ORDERED: cloNIDine HCL 0.1 MG TABLET PO ONE (00:05)
[2019-02-18] MEDS: hydrOXYzine PAMOATE 25 MG CAPSULE (FP) PO PRN ×2 (00:29→10:10)
[2019-02-18] MEDS ORDERED: METHADONE HCL 10 MG TABLET ONE (05:59)
[2019-02-18] MEDS ORDERED: METHADONE HCL 40 MG DISPERSABLE TABLET ONE (05:59)
[2019-02-18] MEDS: METHADONE 40 MG, METHADONE 30 MG PO SCH (06:11)
[2019-02-18] MEDS: DOCUSATE SODIUM 100 MG CAPSULE (FP) PO SCH ×3 (06:12→22:50)
[2019-02-18] MEDS: glipiZIDE 5 MG TABLET (FP) PO SCH (06:12)
[2019-02-18] MEDS: METHOCARBAMOL 500 MG TABLET PO PRN ×3 (06:12→22:50)
[2019-02-18] MEDS: IBUPROFEN 400 MG TABLET (FP) PO PRN (06:12)
[2019-02-18] MEDS: NICOTINE POLACRILEX 2 MG GUM BUC PRN (06:14)
[2019-02-18] MEDS ORDERED: LISINOPRIL 20 MG TABLET (FP) PO ONE (06:36)
--- NOTE | 2019-02-18 06:38 | PN ---
[facility] Progress Note Note: CLIENT SEEN OVERNIGHT FOR C/O ELEVATED B/P AND HEADACHE. CONT TO COMPLAIN OF SAME AFTER MOTRIN/TYLENOL AND CLONIDINE0.1 MG X1. CLIENT REPORTS UNRELIEVED SX' S. HEADACHE 10/10 WORSE WITH BRIGHT LIGHT. HE ALSO COMPLAINS OF HEAVINESS IN HIS CHEST IN THE EARLY PART OF THE DAY YESTERDAY BUT THOSE SX'S HAVE BEEN RELIEVED. HE COMPLAINS OF "LUNG PAIN" STATES IS HURST WHEN HE BREATHES. HE PRESENTLY DENIES C.P. N/V, SOB, DIZZINESS OR VISUAL CHANGES, WEAKNESS. CLIENT ALSO REPORTS RECENT HOSPITALIZATION FOR MENTIONED SX'S AND B/P MEDS WERE CHANGED. HE IS NOT SURE WHAT THEY ARE. EXTERNAL PHARMACY CHECKED RX LISINOPRIL AND AMLODIPNE NOTED BUT FROM 10/2018 NON WHICH HE IS CURRENTLY ON. CLIENT REPORTS HE HAS SOME OF HIS HOME MEDS IN HIS BAG BUT DID NOT OLERICULTURE PROFESSOR NEW MEDS DUE TO A RESTRICTION ISSUE HE IS A/O X3 MILD DISTRESS, NCAT CV-RRR LUNGS- CTAB, NO WHEEZING, RONCHI, O2 SAT RA 97% EXTREMTIES - FROM W/O LIMITATION OOB AMBULATING W/O DIFFICULTY GOOD STRENGTH IN ALL 4 LIMBS EKG-NSRL LVH, BORDERLINE EKG, NO CHANGES NOTED FROM PREVIOUS EKG VS -98.1 80 18 160/111 Laboratory Tests 02/14/19 02/14/19 02/14/19 05:58 17:17 21:03 Sodium Potassium Chloride Carbon Dioxide Anion Gap BUN Creatinine Est GFR (CKD-EPI)AfAm Est GFR (CKD-EPI)NonAf POC Glucometer 165 264 181 Random Glucose Calcium Total Bilirubin AST ALT Alkaline Phosphatase Total Protein Albumin 02/15/19 02/15/19 02/15/19 05:49 08:00 11:12 Sodium 140 Potassium 4.4 Chloride 106 Carbon Dioxide 26 Anion Gap 8 BUN 29.6 H Creatinine 2.0 H Est GFR (CKD-EPI)AfAm 42.29 Est GFR (CKD-EPI)NonAf 36.49 POC Glucometer 301 350 Random Glucose 170 H Calcium 9.1 Total Bilirubin 0.3 AST 42 H ALT 92 H Alkaline Phosphatase 169 H Total Protein 7.4 Albumin 3.9 02/15/19 02/15/19 02/16/19 16:42 21:03 05:46 Sodium Potassium Chloride Carbon Dioxide Anion Gap BUN Creatinine Est GFR (CKD-EPI)AfAm Est GFR (CKD-EPI)NonAf POC Glucometer 230 140 289 Random Glucose Calcium Total Bilirubin AST ALT Alkaline Phosphatase Total Protein Albumin 02/16/19 02/16/19 02/16/19 11:54 16:25 21:22 Sodium Potassium Chloride Carbon Dioxide Anion Gap BUN Creatinine Est GFR (CKD-EPI)AfAm Est GFR (CKD-EPI)NonAf POC Glucometer 206 237 178 Random Glucose Calcium Total Bilirubin AST ALT Alkaline Phosphatase Total Protein Albumin 02/17/19 02/17/19 02/17/19 06:10 11:52 16:38 Sodium Potassium Chloride Carbon Dioxide Anion Gap BUN Creatinine Est GFR (CKD-EPI)AfAm Est GFR (CKD-EPI)NonAf POC Glucometer 169 250 249 Random Glucose Calcium Total Bilirubin AST ALT Alkaline Phosphatase Total Protein Albumin 02/17/19 02/18/19 21:01 06:10 Sodium Potassium Chloride Carbon Dioxide Anion Gap BUN Creatinine Est GFR (CKD-EPI)AfAm Est GFR (CKD-EPI)NonAf POC Glucometer 123 285 Random Glucose Calcium Total Bilirubin AST ALT Alkaline Phosphatase Total Protein Albumin A- UNCONTROLLED HTN P- EKG LISINOPRIL 40 MG X 1 DOSE REPEAT CMP ELEVATED BUN/CREATINE CLIENT REPORT CKD. D/W CLIENT TO F/U WITH DAY STAFF . CLIENT TO HAVE ACCESS TO PROPERTY TO RETRIEVE HOME MEDS WILL ENDORSE TO DAY PROVIDER TO REACH OUT TO [address] [place] [address] PHARMACY TO VERIFY CLIENT MEDS. THIS IS WHERE CLIENT REPORTS HIS NEW MEDS WHERE SENT. CONT TO MONITOR CLINICALLY CONSIDER TRANSFER TO [facility] FOR UNRELIEVED OR WORSENING SX'S
[2019-02-18] MEDS ORDERED: INSULIN (NOVOLOG) ASPART 100 UNITS/ML 10ML VIAL ONE (06:58)
[2019-02-18] MEDS: LIPASE/PROTEASE/AMYLASE 6,000 UNIT CAPSULE PO SCH ×2 (07:46→18:30)
[2019-02-18] MEDS: INSULIN SLIDING SCALE (NOVOLOG) 1 VIAL SQ SCH ×4 (07:46→22:50)
[2019-02-18] MEDS: TAMSULOSIN HCL 0.4 MG CAP PO SCH (07:47)
[2019-02-18] MEDS: NICOTINE 21 MG/24 HOURS TOPICAL PATCH TD SCH (10:07)
[2019-02-18] MEDS: FAMOTIDINE 20 MG TABLET PO SCH (10:07)
[2019-02-18] MEDS: NIFEdipine E.R. 30 MG TABLET (FP) PO SCH (10:08)
[2019-02-18] MEDS: ASPIRIN COATED 81 MG TABLET.EC PO SCH (10:08)
[2019-02-18] MEDS: PRENATAL VITAMINS W/ FOLIC ACID TABLET (FP) PO SCH (10:08)
[2019-02-18] MEDS: FERROUS SO4 325 MG TABLET (FP) PO SCH (10:09)
[2019-02-18] MEDS: BUDESONIDE/FORMETEROL FUMARATE 80/4.5 mcg INHALER IH SCH ×2 (10:10→22:51)
[2019-02-18 12:36] LABS: ALBUMIN 4.2 g/dl (3.4-5.0); BILIRUBIN,TOTAL 0.5 mg/dL (0.2-1); BLOOD UREA NITROGEN 23.1 mg/dL (7-18); CALCIUM 9.4 mg/dL (8.5-10.1); CREATININE 2.2 mg/dL (0.55-1.3); POTASSIUM 4.7 mmol/L (3.5-5.1)
--- NOTE | 2019-02-18 14:34 | PN ---
[facility] Progress Note Note: PATIENT SEEN FOR FOLLOW UP CHEST PAIN AND ELEVATED BLOOD PRESSURE. PATIENT'S BP IMPROVED AFTER RECEIVING DOSE OF LISINOPRIL 40MG X ONE AND CLONIDINE 0.1MG X ONE. (160/111 PRIOR MEDS, 108/62 AFTER MEDS). PATIENT HAD REPEAT CMP THIS MORNING AND RESULTS NOTED BELOW. PATIENT CONTINUES TO HAVE C/O GENERALIZED MALAISE, FLANK BACK DISCOMFORT (MILD DULL ACHE) AND HEADACHES. PMH INCLUDES ETOH DEPENDENCE, DM, HTN, CHRONIC PANCREATITIS, COPD AND CKD. PATIENT REPORTS BEING ADMITTED TO [facility] 2 WEEKS AGO AND STATES HE WAS TO FOLLOW UP POST DISCHARGE BUT DID NOT MAKE APPOINTMENT AND CAME TO [facility] FOR DETOX. Laboratory Tests 02/14/19 02/14/19 02/14/19 05:58 17:17 21:03 Sodium Potassium Chloride Carbon Dioxide Anion Gap BUN Creatinine Est GFR (CKD-EPI)AfAm Est GFR (CKD-EPI)NonAf POC Glucometer 165 264 181 Random Glucose Calcium Total Bilirubin AST ALT Alkaline Phosphatase Total Protein Albumin 02/15/19 02/15/19 02/15/19 05:49 08:00 11:12 Sodium 140 Potassium 4.4 Chloride 106 Carbon Dioxide 26 Anion Gap 8 BUN 29.6 H Creatinine 2.0 H Est GFR (CKD-EPI)AfAm 42.29 Est GFR (CKD-EPI)NonAf 36.49 POC Glucometer 301 350 Random Glucose 170 H Calcium 9.1 Total Bilirubin 0.3 AST 42 H ALT 92 H Alkaline Phosphatase 169 H Total Protein 7.4 Albumin 3.9 02/15/19 02/15/19 02/16/19 16:42 21:03 05:46 Sodium Potassium Chloride Carbon Dioxide Anion Gap BUN Creatinine Est GFR (CKD-EPI)AfAm Est GFR (CKD-EPI)NonAf POC Glucometer 230 140 289 Random Glucose Calcium Total Bilirubin AST ALT Alkaline Phosphatase Total Protein Albumin 02/16/19 02/16/19 02/16/19 11:54 16:25 21:22 Sodium Potassium Chloride Carbon Dioxide Anion Gap BUN Creatinine Est GFR (CKD-EPI)AfAm Est GFR (CKD-EPI)NonAf POC Glucometer 206 237 178 Random Glucose Calcium Total Bilirubin AST ALT Alkaline Phosphatase Total Protein Albumin 02/17/19 02/17/19 02/17/19 06:10 11:52 16:38 Sodium Potassium Chloride Carbon Dioxide Anion Gap BUN Creatinine Est GFR (CKD-EPI)AfAm Est GFR (CKD-EPI)NonAf POC Glucometer 169 250 249 Random Glucose Calcium Total Bilirubin AST ALT Alkaline Phosphatase Total Protein Albumin 02/17/19 02/18/19 02/18/19 21:01 06:10 08:32 Sodium 138 Potassium 4.7 Chloride 105 Carbon Dioxide 27 Anion Gap 6 L BUN 23.1 H Creatinine 2.2 H Est GFR (CKD-EPI)AfAm 37.69 Est GFR (CKD-EPI)NonAf 32.52 POC Glucometer 123 285 Random Glucose 184 H Calcium 9.4 Total Bilirubin 0.5 AST 22 ALT 67 H Alkaline Phosphatase 154 H Total Protein 8.0 Albumin 4.2 02/18/19 11:44 Sodium Potassium Chloride Carbon Dioxide Anion Gap BUN Creatinine Est GFR (CKD-EPI)AfAm Est GFR (CKD-EPI)NonAf POC Glucometer 176 Random Glucose Calcium Total Bilirubin AST ALT Alkaline Phosphatase Total Protein Albumin PE: ALERT AND ORIENTED X 3 SKIN WARM AND DRY APPEARS WEAK +PERRLA, EOMS INTACT SCLERA ICTERIC BL CAR S1S2, RRR RESP CTA BL, NO WHEEZING/RHONCHI, O2 SATS 96% + B/L FLANK AREA MILDLY TENDER EXT FULL ROM, AMB AD VENUS NO TREMORS A/P: MALAISE CKD GFR (42, NOW 37) HTN HEADACHE CHRONIC PANCREATITIS WILL TRANSFER TO ER FOR EVALUATION REPORT GIVEN TO DR. QUINN
[2019-02-18] MEDS: THIAMINE HCL 100 MG TABLET (FP) PO SCH (22:50)
[2019-02-18] MEDS: QUEtiapine FUMARATE 200 MG TABLET PO SCH (22:50)
[2019-02-18] MEDS: ATORVASTATIN CA 20 MG TABLET (FP) PO SCH (22:50)
[2019-02-18] MEDS: MELATONIN 5 MG TABLETS PO PRN (22:50)
[2019-02-19] MEDS: hydrOXYzine PAMOATE 25 MG CAPSULE (FP) PO PRN ×4 (00:53→17:28)
[2019-02-19] MEDS ORDERED: cloNIDine HCL 0.1 MG TABLET PO ONE (00:56)
--- NOTE | 2019-02-19 01:10 | PN ---
S Progress Note Note: Notified that patient's B/P is 164/111. Patient was seen in [facility] ED earlier today for c/o headache, wheezing, and flank pain. CT scans of your head and abdomen was negative for any immediate concerns, but chronic pancreatitis was noted and supports previous diagnosis. No significant change in blood work. No medication changes recommended. Plan: Will prescribe CloNidine 0.1 mg PO now. Continue rehab. Patient should f/u w/ PCP upon discharge.
[2019-02-19] MEDS ORDERED: METHADONE HCL 10 MG TABLET ONE (05:27)
[2019-02-19] MEDS ORDERED: METHADONE HCL 40 MG DISPERSABLE TABLET ONE (05:27)
[2019-02-19] MEDS: METHADONE 40 MG, METHADONE 30 MG PO SCH (05:52)
[2019-02-19] MEDS: DOCUSATE SODIUM 100 MG CAPSULE (FP) PO SCH ×3 (05:52→21:05)
[2019-02-19] MEDS: METHOCARBAMOL 500 MG TABLET PO PRN ×3 (05:54→22:36)
[2019-02-19] MEDS: INSULIN SLIDING SCALE (NOVOLOG) 1 VIAL SQ SCH ×4 (07:03→21:11)
[2019-02-19] MEDS: glipiZIDE 5 MG TABLET (FP) PO SCH (07:03)
[2019-02-19] MEDS: LIPASE/PROTEASE/AMYLASE 6,000 UNIT CAPSULE PO SCH ×2 (07:04→17:31)
[2019-02-19] MEDS ORDERED: INSULIN (NOVOLOG) ASPART 100 UNITS/ML 10ML VIAL ONE ×2 (07:04→12:03)
[2019-02-19] MEDS ORDERED: amLODIPine BESYLATE 10 MG TABLET (FP) PO SCH (10:00)
[2019-02-19] MEDS: FAMOTIDINE 20 MG TABLET PO SCH (10:42)
[2019-02-19] MEDS: PRENATAL VITAMINS W/ FOLIC ACID TABLET (FP) PO SCH (10:42)
[2019-02-19] MEDS: BUDESONIDE/FORMETEROL FUMARATE 80/4.5 mcg INHALER IH SCH ×2 (10:42→21:53)
[2019-02-19] MEDS: ASPIRIN COATED 81 MG TABLET.EC PO SCH (10:42)
[2019-02-19] MEDS: TAMSULOSIN HCL 0.4 MG CAP PO SCH (10:42)
[2019-02-19] MEDS: NIFEdipine E.R. 30 MG TABLET (FP) PO SCH (10:43)
[2019-02-19] MEDS: NICOTINE 21 MG/24 HOURS TOPICAL PATCH TD SCH (10:43)
[2019-02-19] MEDS: FERROUS SO4 325 MG TABLET (FP) PO SCH (10:43)
--- NOTE | 2019-02-19 11:31 | EKG ---
Test Reason : Blood Pressure : / mmHG Vent. Rate : 075 BPM Atrial Rate : 075 BPM P-R Int : 170 ms QRS Dur : 074 ms QT Int : 424 ms P-R-T Axes : 041 022 035 degrees QTc Int : 473 ms NORMAL SINUS RHYTHM POSSIBLE LEFT ATRIAL ENLARGEMENT BORDERLINE ECG WHEN COMPARED WITH ECG OF 09-FEB-2019 20:10, NO SIGNIFICANT CHANGE WAS FOUND Confirmed by AUGUSTO ROBLES MD ([id number]) on 02/19/2019 11:31:24 AM Referred By: Confirmed By:AUGUSTO ROBLES MD
[2019-02-19] MEDS ORDERED: PT OWN MED DRAWER 7, Y5N ONE ×2 (17:30→21:05)
[2019-02-19] MEDS: ATORVASTATIN CA 20 MG TABLET (FP) PO SCH (21:05)
[2019-02-19] MEDS: QUEtiapine FUMARATE 200 MG TABLET PO SCH (21:10)
[2019-02-19] MEDS: THIAMINE HCL 100 MG TABLET (FP) PO SCH (21:10)
[2019-02-19] MEDS: MELATONIN 5 MG TABLETS PO PRN (21:11)
[2019-02-20] MEDS ORDERED: METHADONE HCL 40 MG DISPERSABLE TABLET ONE (05:10)
[2019-02-20] MEDS ORDERED: METHADONE HCL 10 MG TABLET ONE (05:10)
[2019-02-20] MEDS: METHADONE 40 MG, METHADONE 30 MG PO SCH (05:56)
[2019-02-20] MEDS: DOCUSATE SODIUM 100 MG CAPSULE (FP) PO SCH ×3 (05:56→21:40)
[2019-02-20] MEDS: METHOCARBAMOL 500 MG TABLET PO PRN ×2 (05:57→21:51)
[2019-02-20] MEDS: hydrOXYzine PAMOATE 25 MG CAPSULE (FP) PO PRN ×3 (06:54→21:40)
[2019-02-20] MEDS: INSULIN SLIDING SCALE (NOVOLOG) 1 VIAL SQ SCH ×4 (07:02→21:42)
[2019-02-20] MEDS: glipiZIDE 5 MG TABLET (FP) PO SCH (07:02)
[2019-02-20] MEDS ORDERED: INSULIN (NOVOLOG) ASPART 100 UNITS/ML 10ML VIAL ONE ×4 (07:02→21:43)
[2019-02-20] MEDS: LIPASE/PROTEASE/AMYLASE 6,000 UNIT CAPSULE PO SCH ×2 (07:03→16:48)
[2019-02-20] MEDS ORDERED: cloNIDine HCL 0.1 MG TABLET PO ONE (07:28)
--- NOTE | 2019-02-20 07:31 | PN ---
[facility] Progress Note Note: Patients blood pressure was B/P 167/110. Patient is asymptomatic Vital Signs Temperature 97.8 F 02/20/19 06:53 Pulse Rate 74 02/20/19 06:53 Respiratory Rate 18 02/20/19 06:53 Blood Pressure 167/110 H 02/20/19 06:53 O2 Sat by Pulse Oximetry (%) Action: Clonidine 0.1mg tablet oral ordered
[2019-02-20] MEDS: TAMSULOSIN HCL 0.4 MG CAP PO SCH (07:39)
[2019-02-20] MEDS: NICOTINE 21 MG/24 HOURS TOPICAL PATCH TD SCH (09:35)
[2019-02-20] MEDS: NIFEdipine E.R. 30 MG TABLET (FP) PO SCH (09:35)
[2019-02-20] MEDS: ASPIRIN COATED 81 MG TABLET.EC PO SCH (09:35)
[2019-02-20] MEDS: PRENATAL VITAMINS W/ FOLIC ACID TABLET (FP) PO SCH (09:35)
[2019-02-20] MEDS: FAMOTIDINE 20 MG TABLET PO SCH (09:35)
[2019-02-20] MEDS: FERROUS SO4 325 MG TABLET (FP) PO SCH (09:35)
[2019-02-20] MEDS: NICOTINE POLACRILEX 2 MG GUM BUC PRN (09:36)
[2019-02-20] MEDS: BUDESONIDE/FORMETEROL FUMARATE 80/4.5 mcg INHALER IH SCH ×2 (09:36→21:39)
[2019-02-20] MEDS: ALBUTEROL SO4 8 GM HFA INHALER IH PRN (17:57)
[2019-02-20] MEDS ORDERED: ALBUTEROL SO4 2 MG TABLET PO PRN (18:31)
[2019-02-20] MEDS: ATORVASTATIN CA 20 MG TABLET (FP) PO SCH (21:39)
[2019-02-20] MEDS: QUEtiapine FUMARATE 200 MG TABLET PO SCH (21:39)
[2019-02-20] MEDS: THIAMINE HCL 100 MG TABLET (FP) PO SCH (21:40)
[2019-02-20] MEDS: MELATONIN 5 MG TABLETS PO PRN (21:40)
[2019-02-21] MEDS ORDERED: METHADONE HCL 10 MG TABLET PO SCH (06:00)
[2019-02-21] MEDS ORDERED: METHADONE HCL 40 MG DISPERSABLE TABLET ONE (06:01)
[2019-02-21] MEDS ORDERED: METHADONE HCL 10 MG TABLET ONE (06:01)
[2019-02-21] MEDS ORDERED: LISINOPRIL 20 MG TABLET (FP) PO ONE (06:07)
[2019-02-21] MEDS: METHOCARBAMOL 500 MG TABLET PO PRN ×3 (06:14→21:23)
[2019-02-21] MEDS: DOCUSATE SODIUM 100 MG CAPSULE (FP) PO SCH ×3 (06:14→21:19)
[2019-02-21] MEDS: METHADONE 40 MG, METHADONE 30 MG PO SCH (06:14)
[2019-02-21] MEDS: glipiZIDE 5 MG TABLET (FP) PO SCH (06:15)
[2019-02-21] MEDS: hydrOXYzine PAMOATE 25 MG CAPSULE (FP) PO PRN (06:16)
[2019-02-21] MEDS: INSULIN SLIDING SCALE (NOVOLOG) 1 VIAL SQ SCH ×4 (07:06→21:22)
[2019-02-21] MEDS: TAMSULOSIN HCL 0.4 MG CAP PO SCH (07:56)
[2019-02-21] MEDS: LIPASE/PROTEASE/AMYLASE 6,000 UNIT CAPSULE PO SCH ×2 (07:56→16:39)
[2019-02-21] MEDS ORDERED: ACETAMINOPHEN 325 MG TABLET (FP) PO PRN (09:17)
[2019-02-21] MEDS: FAMOTIDINE 20 MG TABLET PO SCH (09:39)
[2019-02-21] MEDS: NICOTINE 21 MG/24 HOURS TOPICAL PATCH TD SCH (09:39)
[2019-02-21] MEDS: NICOTINE POLACRILEX 2 MG GUM BUC PRN (09:39)
[2019-02-21] MEDS: PRENATAL VITAMINS W/ FOLIC ACID TABLET (FP) PO SCH (09:39)
[2019-02-21] MEDS: NIFEdipine E.R. 30 MG TABLET (FP) PO SCH (09:40)
[2019-02-21] MEDS: BUDESONIDE/FORMETEROL FUMARATE 80/4.5 mcg INHALER IH SCH ×2 (09:40→21:19)
[2019-02-21] MEDS: ASPIRIN COATED 81 MG TABLET.EC PO SCH (09:40)
[2019-02-21] MEDS: FERROUS SO4 325 MG TABLET (FP) PO SCH (09:40)
--- NOTE | 2019-02-21 11:28 | PN ---
[facility] Progress Note Note: Patient presents for follow up after ER visit for elevated BP, flank pain and headache. Work up with no significant acute changes. Patient d/c back to [facility] to continue rehab. Patient continues to have elevated BP-improves after treated with Lisinopril x one dose. ROS: denies chest pain, sob and flank pain, Continues to c/o headache- CT of head negative in ER. PE: alert and oriented x 3 skin warm and dry +perrla, eoms intact bl car s1s2, rrr resp no rhonchi/crackles ext full rom, no edema Vital Signs Temperature 98.0 F 02/21/19 07:16 Pulse Rate 103 H 02/21/19 09:30 Respiratory Rate 18 02/21/19 09:30 Blood Pressure 130/89 02/21/19 09:30 O2 Sat by Pulse Oximetry (%) Laboratory Tests 02/14/19 02/14/19 02/14/19 05:58 17:17 21:03 Sodium Potassium Chloride Carbon Dioxide Anion Gap BUN Creatinine Est GFR (CKD-EPI)AfAm Est GFR (CKD-EPI)NonAf POC Glucometer 165 264 181 Random Glucose Calcium Total Bilirubin AST ALT Alkaline Phosphatase Total Protein Albumin 02/15/19 02/15/19 02/15/19 05:49 08:00 11:12 Sodium 140 Potassium 4.4 Chloride 106 Carbon Dioxide 26 Anion Gap 8 BUN 29.6 H Creatinine 2.0 H Est GFR (CKD-EPI)AfAm 42.29 Est GFR (CKD-EPI)NonAf 36.49 POC Glucometer 301 350 Random Glucose 170 H Calcium 9.1 Total Bilirubin 0.3 AST 42 H ALT 92 H Alkaline Phosphatase 169 H Total Protein 7.4 Albumin 3.9 02/15/19 02/15/19 02/16/19 16:42 21:03 05:46 Sodium Potassium Chloride Carbon Dioxide Anion Gap BUN Creatinine Est GFR (CKD-EPI)AfAm Est GFR (CKD-EPI)NonAf POC Glucometer 230 140 289 Random Glucose Calcium Total Bilirubin AST ALT Alkaline Phosphatase Total Protein Albumin 02/16/19 02/16/19 02/16/19 11:54 16:25 21:22 Sodium Potassium Chloride Carbon Dioxide Anion Gap BUN Creatinine Est GFR (CKD-EPI)AfAm Est GFR (CKD-EPI)NonAf POC Glucometer 206 237 178 Random Glucose Calcium Total Bilirubin AST ALT Alkaline Phosphatase Total Protein Albumin 02/17/19 02/17/19 02/17/19 06:10 11:52 16:38 Sodium Potassium Chloride Carbon Dioxide Anion Gap BUN Creatinine Est GFR (CKD-EPI)AfAm Est GFR (CKD-EPI)NonAf POC Glucometer 169 250 249 Random Glucose Calcium Total Bilirubin AST ALT Alkaline Phosphatase Total Protein Albumin 02/17/19 02/18/19 02/18/19 21:01 06:10 08:32 Sodium 138 Potassium 4.7 Chloride 105 Carbon Dioxide 27 Anion Gap 6 L BUN 23.1 H Creatinine 2.2 H Est GFR (CKD-EPI)AfAm 37.69 Est GFR (CKD-EPI)NonAf 32.52 POC Glucometer 123 285 Random Glucose 184 H Calcium 9.4 Total Bilirubin 0.5 AST 22 ALT 67 H Alkaline Phosphatase 154 H Total Protein 8.0 Albumin 4.2 02/18/19 02/19/19 02/19/19 11:44 05:49 11:59 Sodium Potassium Chloride Carbon Dioxide Anion Gap BUN Creatinine Est GFR (CKD-EPI)AfAm Est GFR (CKD-EPI)NonAf POC Glucometer 176 449 404 Random Glucose Calcium Total Bilirubin AST ALT Alkaline Phosphatase Total Protein Albumin 02/19/19 02/19/19 02/20/19 16:51 21:00 05:54 Sodium Potassium Chloride Carbon Dioxide Anion Gap BUN Creatinine Est GFR (CKD-EPI)AfAm Est GFR (CKD-EPI)NonAf POC Glucometer 111 164 340 Random Glucose Calcium Total Bilirubin AST ALT Alkaline Phosphatase Total Protein Albumin 02/20/19 02/20/19 02/20/19 11:51 16:47 21:38 Sodium Potassium Chloride Carbon Dioxide Anion Gap BUN Creatinine Est GFR (CKD-EPI)AfAm Est GFR (CKD-EPI)NonAf POC Glucometer 214 265 249 Random Glucose Calcium Total Bilirubin AST ALT Alkaline Phosphatase Total Protein Albumin 02/21/19 06:13 Sodium Potassium Chloride Carbon Dioxide Anion Gap BUN Creatinine Est GFR (CKD-EPI)AfAm Est GFR (CKD-EPI)NonAf POC Glucometer 316 Random Glucose Calcium Total Bilirubin AST ALT Alkaline Phosphatase Total Protein Albumin a/p: HTN Headache ammonia level 70 02/10/19 will add lisinopril 40mg daily continue nifedipine one time dose of apap 650mg given (no NSAIDS due to CKD) will repeat ammonia level in am monitor clinically
[2019-02-21] MEDS ORDERED: INSULIN (NOVOLOG) ASPART 100 UNITS/ML 10ML VIAL ONE ×2 (11:41→16:18)
[2019-02-21] MEDS: hydrOXYzine PAMOATE 50 MG CAPSULE (FP) PO PRN ×2 (11:47→17:39)
[2019-02-21] MEDS ORDERED: ACETAMINOPHEN 325 MG TABLET (FP) PO ONE (12:00)
[2019-02-21] MEDS: THIAMINE HCL 100 MG TABLET (FP) PO SCH (21:19)
[2019-02-21] MEDS: MELATONIN 5 MG TABLETS PO PRN (21:19)
[2019-02-21] MEDS: QUEtiapine FUMARATE 200 MG TABLET PO SCH (21:19)
[2019-02-21] MEDS: ATORVASTATIN CA 20 MG TABLET (FP) PO SCH (21:19)
[2019-02-22] MEDS: LISINOPRIL 20 MG TABLET (FP) PO SCH ×2 (05:43→09:48)
[2019-02-22] MEDS: DOCUSATE SODIUM 100 MG CAPSULE (FP) PO SCH ×3 (05:46→21:02)
[2019-02-22] MEDS: hydrOXYzine PAMOATE 50 MG CAPSULE (FP) PO PRN ×3 (05:48→21:02)
[2019-02-22] MEDS: METHOCARBAMOL 500 MG TABLET PO PRN ×2 (05:48→11:59)
[2019-02-22] MEDS ORDERED: METHADONE HCL 10 MG TABLET ONE (05:49)
[2019-02-22] MEDS ORDERED: METHADONE HCL 40 MG DISPERSABLE TABLET ONE (05:49)
[2019-02-22] MEDS: METHADONE 40 MG, METHADONE 30 MG PO SCH (05:50)
[2019-02-22] MEDS: glipiZIDE 5 MG TABLET (FP) PO SCH (06:29)
[2019-02-22] MEDS: INSULIN SLIDING SCALE (NOVOLOG) 1 VIAL SQ SCH ×4 (06:31→21:03)
[2019-02-22] MEDS: TAMSULOSIN HCL 0.4 MG CAP PO SCH (07:47)
[2019-02-22] MEDS: LIPASE/PROTEASE/AMYLASE 6,000 UNIT CAPSULE PO SCH ×2 (07:48→16:47)
[2019-02-22] MEDS: ASPIRIN COATED 81 MG TABLET.EC PO SCH (09:48)
[2019-02-22] MEDS: NIFEdipine E.R. 30 MG TABLET (FP) PO SCH (09:48)
[2019-02-22] MEDS: PRENATAL VITAMINS W/ FOLIC ACID TABLET (FP) PO SCH (09:48)
[2019-02-22] MEDS: NICOTINE 21 MG/24 HOURS TOPICAL PATCH TD SCH (09:49)
[2019-02-22] MEDS: FERROUS SO4 325 MG TABLET (FP) PO SCH (09:49)
[2019-02-22] MEDS: BUDESONIDE/FORMETEROL FUMARATE 80/4.5 mcg INHALER IH SCH ×2 (09:50→21:03)
[2019-02-22] MEDS: FAMOTIDINE 20 MG TABLET PO SCH (10:57)
[2019-02-22] MEDS ORDERED: INSULIN (NOVOLOG) ASPART 100 UNITS/ML 10ML VIAL ONE (12:02)
[2019-02-22] MEDS: QUEtiapine FUMARATE 200 MG TABLET PO SCH (21:02)
[2019-02-22] MEDS: ATORVASTATIN CA 20 MG TABLET (FP) PO SCH (21:02)
[2019-02-22] MEDS: THIAMINE HCL 100 MG TABLET (FP) PO SCH (21:02)
[2019-02-22] MEDS: MELATONIN 5 MG TABLETS PO PRN (21:02)
[2019-02-23] MEDS ORDERED: METHADONE HCL 40 MG DISPERSABLE TABLET ONE (05:09)
[2019-02-23] MEDS ORDERED: METHADONE HCL 10 MG TABLET ONE (05:09)
[2019-02-23] MEDS: hydrOXYzine PAMOATE 50 MG CAPSULE (FP) PO PRN ×3 (05:47→21:32)
[2019-02-23] MEDS: METHADONE 40 MG, METHADONE 30 MG PO SCH (05:47)
[2019-02-23] MEDS: METHOCARBAMOL 500 MG TABLET PO PRN ×2 (05:48→11:52)
[2019-02-23] MEDS: DOCUSATE SODIUM 100 MG CAPSULE (FP) PO SCH (05:48)
[2019-02-23] MEDS ORDERED: cloNIDine HCL 0.1 MG TABLET PO ONE ×2 (06:29→21:05)
--- NOTE | 2019-02-23 06:34 | PN ---
[facility] Progress Note Note: Patient's blood pressure is B/P 164/110. Patient complained of headache Vital Signs Temperature 98.1 F 02/23/19 06:31 Pulse Rate 73 02/23/19 06:31 Respiratory Rate 18 02/23/19 06:31 Blood Pressure 164/110 H 02/23/19 06:31 O2 Sat by Pulse Oximetry (%) Action: Clonidine 0.1mg tablet oral ordered Tylenol 650mg table oral Q6H prn for EVANS
[2019-02-23] MEDS: glipiZIDE 5 MG TABLET (FP) PO SCH (07:03)
[2019-02-23] MEDS: INSULIN SLIDING SCALE (NOVOLOG) 1 VIAL SQ SCH ×4 (07:03→21:32)
[2019-02-23] MEDS ORDERED: INSULIN (NOVOLOG) ASPART 100 UNITS/ML 10ML VIAL ONE ×3 (07:03→16:35)
[2019-02-23] MEDS: TAMSULOSIN HCL 0.4 MG CAP PO SCH (07:47)
[2019-02-23] MEDS: LIPASE/PROTEASE/AMYLASE 6,000 UNIT CAPSULE PO SCH ×2 (07:48→16:37)
[2019-02-23] MEDS: FAMOTIDINE 20 MG TABLET PO SCH (09:28)
[2019-02-23] MEDS: NICOTINE 21 MG/24 HOURS TOPICAL PATCH TD SCH (09:28)
[2019-02-23] MEDS: ASPIRIN COATED 81 MG TABLET.EC PO SCH (09:29)
[2019-02-23] MEDS: PRENATAL VITAMINS W/ FOLIC ACID TABLET (FP) PO SCH (09:29)
[2019-02-23] MEDS: LISINOPRIL 20 MG TABLET (FP) PO SCH (09:29)
[2019-02-23] MEDS: FERROUS SO4 325 MG TABLET (FP) PO SCH (09:29)
[2019-02-23] MEDS: BUDESONIDE/FORMETEROL FUMARATE 80/4.5 mcg INHALER IH SCH ×2 (09:32→21:31)
--- NOTE | 2019-02-23 10:11 | PN ---
S Progress Note Note: CBC, BMP 02/18/19 08:32 Creatinine elevated, reduced pepcid to 20mg/day. Also, patient is c/o constipation not relieved with colace and his amonia level is slightly elevated (32.60) will give him one dose of lactolose to decrease ammonia level and relieve constipation.
[2019-02-23] MEDS ORDERED: LACTULOSE 20 GM/30 ML UDC (FOR ORAL USE ONLY) PO ONE (11:54)
--- NOTE | 2019-02-23 14:49 | PN ---
[facility] Progress Note Note: patient with a headache. Unable to take tylenol or motrin due to CKD and elevated liver enzymes. Will give one dose of Imitrex.
[2019-02-23] MEDS ORDERED: SUMAtriptan SUCCINATE 25 MG TABLET PO ONE (15:15)
[2019-02-23] MEDS ORDERED: ACETAMINOPHEN 325 MG TABLET (FP) PO ONE (15:15)
--- NOTE | 2019-02-23 21:08 | PN ---
S Progress Note Note: Patient's blood pressure is B/P 163/109. Vital Signs Temperature 97.6 F 02/23/19 21:04 Pulse Rate 74 02/23/19 21:04 Respiratory Rate 16 02/23/19 21:04 Blood Pressure 163/109 H 02/23/19 21:04 O2 Sat by Pulse Oximetry (%) Action: Clonidine 0.1mg tablet oral ordered
[2019-02-23] MEDS: THIAMINE HCL 100 MG TABLET (FP) PO SCH (21:31)
[2019-02-23] MEDS: MELATONIN 5 MG TABLETS PO PRN (21:31)
[2019-02-23] MEDS: ATORVASTATIN CA 20 MG TABLET (FP) PO SCH (21:31)
[2019-02-23] MEDS: QUEtiapine FUMARATE 200 MG TABLET PO SCH (21:31)
[2019-02-24] MEDS ORDERED: METHADONE HCL 10 MG TABLET ONE (05:19)
[2019-02-24] MEDS ORDERED: METHADONE HCL 40 MG DISPERSABLE TABLET ONE (05:20)
[2019-02-24] MEDS: NIFEdipine E.R. 30 MG TABLET (FP) PO SCH ×2 (05:50→10:08)
[2019-02-24] MEDS: METHADONE 40 MG, METHADONE 30 MG PO SCH (05:50)
[2019-02-24] MEDS: hydrOXYzine PAMOATE 50 MG CAPSULE (FP) PO PRN ×3 (05:51→21:37)
[2019-02-24] MEDS: METHOCARBAMOL 500 MG TABLET PO PRN ×2 (05:51→13:00)
[2019-02-24] MEDS ORDERED: INSULIN (NOVOLOG) ASPART 100 UNITS/ML 10ML VIAL ONE ×3 (06:56→16:21)
[2019-02-24] MEDS: INSULIN SLIDING SCALE (NOVOLOG) 1 VIAL SQ SCH ×4 (07:00→21:40)
[2019-02-24] MEDS: glipiZIDE 5 MG TABLET (FP) PO SCH (07:00)
[2019-02-24] MEDS: LIPASE/PROTEASE/AMYLASE 6,000 UNIT CAPSULE PO SCH ×2 (07:26→16:31)
[2019-02-24] MEDS: TAMSULOSIN HCL 0.4 MG CAP PO SCH (08:03)
[2019-02-24] MEDS ORDERED: PT OWN MED DRAWER 7, Y5N ONE (08:37)
[2019-02-24] MEDS: NICOTINE POLACRILEX 2 MG GUM BUC PRN (09:01)
[2019-02-24] MEDS: FERROUS SO4 325 MG TABLET (FP) PO SCH (10:08)
[2019-02-24] MEDS: BUDESONIDE/FORMETEROL FUMARATE 80/4.5 mcg INHALER IH SCH ×2 (10:08→22:02)
[2019-02-24] MEDS: ASPIRIN COATED 81 MG TABLET.EC PO SCH (10:08)
[2019-02-24] MEDS: NICOTINE 21 MG/24 HOURS TOPICAL PATCH TD SCH (10:08)
[2019-02-24] MEDS: PRENATAL VITAMINS W/ FOLIC ACID TABLET (FP) PO SCH (10:08)
[2019-02-24] MEDS: FAMOTIDINE 20 MG TABLET PO SCH (10:08)
[2019-02-24] MEDS: LISINOPRIL 20 MG TABLET (FP) PO SCH (10:08)
[2019-02-24] MEDS ORDERED: TOPIRAMATE 25 MG TABLET (FP) PO SCH (10:30)
[2019-02-24] MEDS: THIAMINE HCL 100 MG TABLET (FP) PO SCH (21:36)
[2019-02-24] MEDS: MELATONIN 5 MG TABLETS PO PRN (21:36)
[2019-02-24] MEDS: QUEtiapine FUMARATE 200 MG TABLET PO SCH (21:36)
[2019-02-24] MEDS: ATORVASTATIN CA 20 MG TABLET (FP) PO SCH (21:36)
[2019-02-25] MEDS ORDERED: METHADONE HCL 10 MG TABLET ONE (05:25)
[2019-02-25] MEDS ORDERED: METHADONE HCL 40 MG DISPERSABLE TABLET ONE (05:25)
[2019-02-25] MEDS: hydrOXYzine PAMOATE 50 MG CAPSULE (FP) PO PRN ×3 (05:50→21:28)
[2019-02-25] MEDS: METHOCARBAMOL 500 MG TABLET PO PRN ×2 (05:51→12:47)
[2019-02-25] MEDS: METHADONE 40 MG, METHADONE 30 MG PO SCH (05:51)
[2019-02-25] MEDS ORDERED: INSULIN (NOVOLOG) ASPART 100 UNITS/ML 10ML VIAL ONE ×2 (06:25→12:05)
[2019-02-25] MEDS: glipiZIDE 5 MG TABLET (FP) PO SCH (06:38)
[2019-02-25] MEDS: INSULIN SLIDING SCALE (NOVOLOG) 1 VIAL SQ SCH ×4 (06:38→21:30)
[2019-02-25] MEDS: TAMSULOSIN HCL 0.4 MG CAP PO SCH (07:58)
[2019-02-25] MEDS: LIPASE/PROTEASE/AMYLASE 6,000 UNIT CAPSULE PO SCH ×2 (07:58→16:41)
[2019-02-25] MEDS ORDERED: PT OWN MED DRAWER 7, Y5N ONE (08:54)
--- NOTE | 2019-02-25 09:45 | PN ---
[facility] Progress Note Note: Patient presents for c/o headache, states Topamax is helpful with headache but effect wears off in the evening. Requesting dose adjustment. ROS: denies chest pain, sob and dizziness. Laboratory Tests 02/14/19 02/14/19 02/14/19 05:58 17:17 21:03 Sodium Potassium Chloride Carbon Dioxide Anion Gap BUN Creatinine Est GFR (CKD-EPI)AfAm Est GFR (CKD-EPI)NonAf POC Glucometer 165 264 181 Random Glucose Calcium Total Bilirubin AST ALT Alkaline Phosphatase Ammonia Total Protein Albumin 02/15/19 02/15/19 02/15/19 05:49 08:00 11:12 Sodium 140 Potassium 4.4 Chloride 106 Carbon Dioxide 26 Anion Gap 8 BUN 29.6 H Creatinine 2.0 H Est GFR (CKD-EPI)AfAm 42.29 Est GFR (CKD-EPI)NonAf 36.49 POC Glucometer 301 350 Random Glucose 170 H Calcium 9.1 Total Bilirubin 0.3 AST 42 H ALT 92 H Alkaline Phosphatase 169 H Ammonia Total Protein 7.4 Albumin 3.9 02/15/19 02/15/19 02/16/19 16:42 21:03 05:46 Sodium Potassium Chloride Carbon Dioxide Anion Gap BUN Creatinine Est GFR (CKD-EPI)AfAm Est GFR (CKD-EPI)NonAf POC Glucometer 230 140 289 Random Glucose Calcium Total Bilirubin AST ALT Alkaline Phosphatase Ammonia Total Protein Albumin 02/16/19 02/16/19 02/16/19 11:54 16:25 21:22 Sodium Potassium Chloride Carbon Dioxide Anion Gap BUN Creatinine Est GFR (CKD-EPI)AfAm Est GFR (CKD-EPI)NonAf POC Glucometer 206 237 178 Random Glucose Calcium Total Bilirubin AST ALT Alkaline Phosphatase Ammonia Total Protein Albumin 02/17/19 02/17/19 02/17/19 06:10 11:52 16:38 Sodium Potassium Chloride Carbon Dioxide Anion Gap BUN Creatinine Est GFR (CKD-EPI)AfAm Est GFR (CKD-EPI)NonAf POC Glucometer 169 250 249 Random Glucose Calcium Total Bilirubin AST ALT Alkaline Phosphatase Ammonia Total Protein Albumin 02/17/19 02/18/19 02/18/19 21:01 06:10 08:32 Sodium 138 Potassium 4.7 Chloride 105 Carbon Dioxide 27 Anion Gap 6 L BUN 23.1 H Creatinine 2.2 H Est GFR (CKD-EPI)AfAm 37.69 Est GFR (CKD-EPI)NonAf 32.52 POC Glucometer 123 285 Random Glucose 184 H Calcium 9.4 Total Bilirubin 0.5 AST 22 ALT 67 H Alkaline Phosphatase 154 H Ammonia Total Protein 8.0 Albumin 4.2 02/18/19 02/19/19 02/19/19 11:44 05:49 11:59 Sodium Potassium Chloride Carbon Dioxide Anion Gap BUN Creatinine Est GFR (CKD-EPI)AfAm Est GFR (CKD-EPI)NonAf POC Glucometer 176 449 404 Random Glucose Calcium Total Bilirubin AST ALT Alkaline Phosphatase Ammonia Total Protein Albumin 02/19/19 02/19/19 02/20/19 16:51 21:00 05:54 Sodium Potassium Chloride Carbon Dioxide Anion Gap BUN Creatinine Est GFR (CKD-EPI)AfAm Est GFR (CKD-EPI)NonAf POC Glucometer 111 164 340 Random Glucose Calcium Total Bilirubin AST ALT Alkaline Phosphatase Ammonia Total Protein Albumin 02/20/19 02/20/19 02/20/19 11:51 16:47 21:38 Sodium Potassium Chloride Carbon Dioxide Anion Gap BUN Creatinine Est GFR (CKD-EPI)AfAm Est GFR (CKD-EPI)NonAf POC Glucometer 214 265 249 Random Glucose Calcium Total Bilirubin AST ALT Alkaline Phosphatase Ammonia Total Protein Albumin 02/21/19 02/21/19 02/21/19 06:13 11:39 16:19 Sodium Potassium Chloride Carbon Dioxide Anion Gap BUN Creatinine Est GFR (CKD-EPI)AfAm Est GFR (CKD-EPI)NonAf POC Glucometer 316 212 324 Random Glucose Calcium Total Bilirubin AST ALT Alkaline Phosphatase Ammonia Total Protein Albumin 02/21/19 02/22/19 02/22/19 21:21 05:45 08:00 Sodium Potassium Chloride Carbon Dioxide Anion Gap BUN Creatinine Est GFR (CKD-EPI)AfAm Est GFR (CKD-EPI)NonAf POC Glucometer 168 308 Random Glucose Calcium Total Bilirubin AST ALT Alkaline Phosphatase Ammonia 32.60 H Total Protein Albumin 02/22/19 02/22/19 02/22/19 12:01 16:45 21:01 Sodium Potassium Chloride Carbon Dioxide Anion Gap BUN Creatinine Est GFR (CKD-EPI)AfAm Est GFR (CKD-EPI)NonAf POC Glucometer 201 275 124 Random Glucose Calcium Total Bilirubin AST ALT Alkaline Phosphatase Ammonia Total Protein Albumin 02/23/19 02/23/19 02/23/19 05:44 11:23 16:35 Sodium Potassium Chloride Carbon Dioxide Anion Gap BUN Creatinine Est GFR (CKD-EPI)AfAm Est GFR (CKD-EPI)NonAf POC Glucometer 292 391 182 Random Glucose Calcium Total Bilirubin AST ALT Alkaline Phosphatase Ammonia Total Protein Albumin 02/24/19 02/24/19 02/24/19 05:47 11:23 16:22 Sodium Potassium Chloride Carbon Dioxide Anion Gap BUN Creatinine Est GFR (CKD-EPI)AfAm Est GFR (CKD-EPI)NonAf POC Glucometer 324 238 360 Random Glucose Calcium Total Bilirubin AST ALT Alkaline Phosphatase Ammonia Total Protein Albumin 02/24/19 02/25/19 21:38 05:50 Sodium Potassium Chloride Carbon Dioxide Anion Gap BUN Creatinine Est GFR (CKD-EPI)AfAm Est GFR (CKD-EPI)NonAf POC Glucometer 239 244 Random Glucose Calcium Total Bilirubin AST ALT Alkaline Phosphatase Ammonia Total Protein Albumin Vital Signs Temperature 97.9 F 02/25/19 06:46 Pulse Rate 80 02/25/19 06:46 Respiratory Rate 18 02/25/19 06:46 Blood Pressure 135/95 02/25/19 06:46 O2 Sat by Pulse Oximetry (%) PE: alert and oriented x 3 skin warm and dry +perrla, eoms intact bl gi nt, nd ext full rom, amb ad franchesca a/p; migraines will increase topamax to 25mg bid monitor clinically
[2019-02-25] MEDS: FAMOTIDINE 20 MG TABLET PO SCH (09:51)
[2019-02-25] MEDS: ASPIRIN COATED 81 MG TABLET.EC PO SCH (09:51)
[2019-02-25] MEDS: FERROUS SO4 325 MG TABLET (FP) PO SCH (09:51)
[2019-02-25] MEDS: LISINOPRIL 20 MG TABLET (FP) PO SCH (09:51)
[2019-02-25] MEDS: BUDESONIDE/FORMETEROL FUMARATE 80/4.5 mcg INHALER IH SCH ×2 (09:52→21:57)
[2019-02-25] MEDS: PRENATAL VITAMINS W/ FOLIC ACID TABLET (FP) PO SCH (09:52)
[2019-02-25] MEDS: NICOTINE 21 MG/24 HOURS TOPICAL PATCH TD SCH (09:52)
[2019-02-25] MEDS: NIFEdipine E.R. 30 MG TABLET (FP) PO SCH (09:52)
[2019-02-25] MEDS: TOPIRAMATE 25 MG TABLET (FP) PO SCH ×2 (10:17→21:28)
[2019-02-25] MEDS ORDERED: ACETAMINOPHEN 325 MG TABLET (FP) PO PRN (18:14)
[2019-02-25] MEDS: ATORVASTATIN CA 20 MG TABLET (FP) PO SCH (21:27)
[2019-02-25] MEDS: QUEtiapine FUMARATE 200 MG TABLET PO SCH (21:28)
[2019-02-25] MEDS: MELATONIN 5 MG TABLETS PO PRN (21:28)
[2019-02-25] MEDS: THIAMINE HCL 100 MG TABLET (FP) PO SCH (21:58)
[2019-02-26] MEDS ORDERED: METHADONE HCL 40 MG DISPERSABLE TABLET ONE (05:58)
[2019-02-26] MEDS ORDERED: METHADONE HCL 10 MG TABLET ONE (05:58)
[2019-02-26] MEDS: METHADONE 40 MG, METHADONE 30 MG PO SCH (06:31)
[2019-02-26] MEDS: glipiZIDE 5 MG TABLET (FP) PO SCH (06:34)
[2019-02-26] MEDS: hydrOXYzine PAMOATE 50 MG CAPSULE (FP) PO PRN ×2 (06:36→21:02)
[2019-02-26] MEDS: METHOCARBAMOL 500 MG TABLET PO PRN ×2 (06:36→21:03)
[2019-02-26] MEDS ORDERED: cloNIDine HCL 0.1 MG TABLET PO ONE (07:34)
[2019-02-26] MEDS: INSULIN SLIDING SCALE (NOVOLOG) 1 VIAL SQ SCH ×4 (07:50→21:30)
[2019-02-26] MEDS: LISINOPRIL 20 MG TABLET (FP) PO SCH (07:50)
[2019-02-26] MEDS: LIPASE/PROTEASE/AMYLASE 6,000 UNIT CAPSULE PO SCH ×2 (07:50→16:34)
[2019-02-26] MEDS: TAMSULOSIN HCL 0.4 MG CAP PO SCH (07:50)
[2019-02-26] MEDS: ASPIRIN COATED 81 MG TABLET.EC PO SCH (09:12)
[2019-02-26] MEDS: NICOTINE 21 MG/24 HOURS TOPICAL PATCH TD SCH (09:12)
[2019-02-26] MEDS: FERROUS SO4 325 MG TABLET (FP) PO SCH (09:12)
[2019-02-26] MEDS: PRENATAL VITAMINS W/ FOLIC ACID TABLET (FP) PO SCH (09:13)
[2019-02-26] MEDS: FAMOTIDINE 20 MG TABLET PO SCH (09:13)
[2019-02-26] MEDS: BUDESONIDE/FORMETEROL FUMARATE 80/4.5 mcg INHALER IH SCH ×2 (09:14→21:05)
[2019-02-26] MEDS: NIFEdipine E.R. 30 MG TABLET (FP) PO SCH (09:14)
[2019-02-26] MEDS: TOPIRAMATE 25 MG TABLET (FP) PO SCH ×2 (09:14→21:30)
[2019-02-26] MEDS ORDERED: INSULIN (NOVOLOG) ASPART 100 UNITS/ML 10ML VIAL ONE ×2 (11:38→16:33)
[2019-02-26] MEDS: NICOTINE POLACRILEX 2 MG GUM BUC PRN (14:01)
[2019-02-26] MEDS: MELATONIN 5 MG TABLETS PO PRN (21:02)
[2019-02-26] MEDS: THIAMINE HCL 100 MG TABLET (FP) PO SCH (21:02)
[2019-02-26] MEDS: QUEtiapine FUMARATE 200 MG TABLET PO SCH (21:02)
[2019-02-26] MEDS: ATORVASTATIN CA 20 MG TABLET (FP) PO SCH (21:02)
[2019-02-26] MEDS: DOCUSATE SODIUM 100 MG CAPSULE (FP) PO SCH (21:03)
[2019-02-27] MEDS ORDERED: METHADONE HCL 10 MG TABLET ONE (05:57)
[2019-02-27] MEDS ORDERED: METHADONE HCL 40 MG DISPERSABLE TABLET ONE (05:57)
[2019-02-27] MEDS: glipiZIDE 5 MG TABLET (FP) PO SCH (06:25)
[2019-02-27] MEDS: LISINOPRIL 20 MG TABLET (FP) PO SCH (06:25)
[2019-02-27] MEDS: METHADONE 40 MG, METHADONE 30 MG PO SCH (06:25)
[2019-02-27] MEDS: hydrOXYzine PAMOATE 50 MG CAPSULE (FP) PO PRN ×3 (06:25→21:08)
[2019-02-27] MEDS: METHOCARBAMOL 500 MG TABLET PO PRN ×3 (06:25→21:11)
[2019-02-27] MEDS ORDERED: INSULIN (NOVOLOG) ASPART 100 UNITS/ML 10ML VIAL ONE (07:06)
[2019-02-27] MEDS: INSULIN SLIDING SCALE (NOVOLOG) 1 VIAL SQ SCH ×4 (07:49→21:12)
[2019-02-27] MEDS: LIPASE/PROTEASE/AMYLASE 6,000 UNIT CAPSULE PO SCH ×2 (07:50→16:38)
[2019-02-27] MEDS: TAMSULOSIN HCL 0.4 MG CAP PO SCH (07:50)
[2019-02-27] MEDS: NIFEdipine E.R. 30 MG TABLET (FP) PO SCH (10:26)
[2019-02-27] MEDS: ASPIRIN COATED 81 MG TABLET.EC PO SCH (10:26)
[2019-02-27] MEDS: NICOTINE 21 MG/24 HOURS TOPICAL PATCH TD SCH (10:26)
[2019-02-27] MEDS: TOPIRAMATE 25 MG TABLET (FP) PO SCH ×2 (10:27→21:08)
[2019-02-27] MEDS: PRENATAL VITAMINS W/ FOLIC ACID TABLET (FP) PO SCH (10:27)
[2019-02-27] MEDS: FERROUS SO4 325 MG TABLET (FP) PO SCH (10:27)
[2019-02-27] MEDS: BUDESONIDE/FORMETEROL FUMARATE 80/4.5 mcg INHALER IH SCH ×2 (10:27→21:07)
[2019-02-27] MEDS: FAMOTIDINE 20 MG TABLET PO SCH (10:29)
[2019-02-27] MEDS: THIAMINE HCL 100 MG TABLET (FP) PO SCH (21:07)
[2019-02-27] MEDS: QUEtiapine FUMARATE 200 MG TABLET PO SCH (21:07)
[2019-02-27] MEDS: DOCUSATE SODIUM 100 MG CAPSULE (FP) PO SCH (21:07)
[2019-02-27] MEDS: ATORVASTATIN CA 20 MG TABLET (FP) PO SCH (21:07)
[2019-02-28] MEDS ORDERED: METHADONE HCL 40 MG DISPERSABLE TABLET ONE (05:23)
[2019-02-28] MEDS ORDERED: METHADONE HCL 10 MG TABLET ONE (05:23)
[2019-02-28] MEDS: METHADONE 40 MG, METHADONE 30 MG PO SCH (05:46)
[2019-02-28] MEDS: LISINOPRIL 20 MG TABLET (FP) PO SCH (05:46)
[2019-02-28] MEDS: hydrOXYzine PAMOATE 50 MG CAPSULE (FP) PO PRN ×2 (05:47→12:46)
[2019-02-28] MEDS: METHOCARBAMOL 500 MG TABLET PO PRN ×2 (05:47→12:46)
[2019-02-28] MEDS: glipiZIDE 5 MG TABLET (FP) PO SCH (06:25)
[2019-02-28] MEDS: INSULIN SLIDING SCALE (NOVOLOG) 1 VIAL SQ SCH ×4 (06:25→21:05)
[2019-02-28] MEDS ORDERED: INSULIN (NOVOLOG) ASPART 100 UNITS/ML 10ML VIAL ONE ×4 (06:25→21:07)
[2019-02-28] MEDS: LIPASE/PROTEASE/AMYLASE 6,000 UNIT CAPSULE PO SCH ×2 (07:31→16:48)
[2019-02-28] MEDS: TAMSULOSIN HCL 0.4 MG CAP PO SCH (07:31)
--- NOTE | 2019-02-28 09:30 | PN ---
[facility] Progress Note Note: Patient c/o constipation. Cannot receive Mg medications due to CKD. Last BM 2 days ago. Patient denies N/V/D, fever and abdominal pain. PE: alert and oriented x 3 skin warm and dry +perrla, eoms intact bl gi nt,nd ext full rom A/P: constipation encourage oral fluids lactulose 20gm bid prn monitor clinically
[2019-02-28] MEDS: PRENATAL VITAMINS W/ FOLIC ACID TABLET (FP) PO SCH (09:35)
[2019-02-28] MEDS: FERROUS SO4 325 MG TABLET (FP) PO SCH (09:35)
[2019-02-28] MEDS: TOPIRAMATE 25 MG TABLET (FP) PO SCH ×2 (09:35→21:10)
[2019-02-28] MEDS: FAMOTIDINE 20 MG TABLET PO SCH (09:35)
[2019-02-28] MEDS: NIFEdipine E.R. 30 MG TABLET (FP) PO SCH (09:36)
[2019-02-28] MEDS: BUDESONIDE/FORMETEROL FUMARATE 80/4.5 mcg INHALER IH SCH ×2 (09:36→22:13)
[2019-02-28] MEDS: NICOTINE 21 MG/24 HOURS TOPICAL PATCH TD SCH (09:36)
[2019-02-28] MEDS: ASPIRIN COATED 81 MG TABLET.EC PO SCH (09:36)
[2019-02-28] MEDS: LACTULOSE 20 GM/30 ML UDC (FOR ORAL USE ONLY) PO PRN ×2 (09:37→21:12)
[2019-02-28] MEDS: DOCUSATE SODIUM 100 MG CAPSULE (FP) PO SCH (21:09)
[2019-02-28] MEDS: QUEtiapine FUMARATE 200 MG TABLET PO SCH (21:10)
[2019-02-28] MEDS ORDERED: PT OWN MED DRAWER 7, Y5N ONE (21:10)
[2019-02-28] MEDS: ATORVASTATIN CA 20 MG TABLET (FP) PO SCH (21:10)
[2019-02-28] MEDS: MELATONIN 5 MG TABLETS PO PRN (21:10)
[2019-02-28] MEDS: THIAMINE HCL 100 MG TABLET (FP) PO SCH (22:13)
[2019-03-01] MEDS ORDERED: METHADONE HCL 40 MG DISPERSABLE TABLET ONE (05:27)
[2019-03-01] MEDS ORDERED: METHADONE HCL 10 MG TABLET ONE (05:27)
[2019-03-01] MEDS: METHOCARBAMOL 500 MG TABLET PO PRN ×3 (05:56→21:04)
[2019-03-01] MEDS: METHADONE 40 MG, METHADONE 30 MG PO SCH (05:56)
[2019-03-01] MEDS: hydrOXYzine PAMOATE 50 MG CAPSULE (FP) PO PRN ×3 (05:56→21:04)
[2019-03-01] MEDS: LISINOPRIL 20 MG TABLET (FP) PO SCH (05:57)
[2019-03-01] MEDS ORDERED: INSULIN (NOVOLOG) ASPART 100 UNITS/ML 10ML VIAL ONE ×2 (06:27→11:40)
[2019-03-01] MEDS: glipiZIDE 5 MG TABLET (FP) PO SCH (07:16)
[2019-03-01] MEDS: INSULIN SLIDING SCALE (NOVOLOG) 1 VIAL SQ SCH ×4 (07:16→21:04)
[2019-03-01] MEDS: TAMSULOSIN HCL 0.4 MG CAP PO SCH (08:18)
[2019-03-01] MEDS: LIPASE/PROTEASE/AMYLASE 6,000 UNIT CAPSULE PO SCH ×2 (08:18→16:33)
[2019-03-01] MEDS: NICOTINE POLACRILEX 2 MG GUM BUC PRN (08:21)
[2019-03-01] MEDS: FERROUS SO4 325 MG TABLET (FP) PO SCH (09:42)
[2019-03-01] MEDS: NICOTINE 21 MG/24 HOURS TOPICAL PATCH TD SCH (09:42)
[2019-03-01] MEDS: NIFEdipine E.R. 30 MG TABLET (FP) PO SCH (09:42)
[2019-03-01] MEDS: FAMOTIDINE 20 MG TABLET PO SCH (09:42)
[2019-03-01] MEDS: BUDESONIDE/FORMETEROL FUMARATE 80/4.5 mcg INHALER IH SCH ×2 (09:42→21:05)
[2019-03-01] MEDS: PRENATAL VITAMINS W/ FOLIC ACID TABLET (FP) PO SCH (09:42)
[2019-03-01] MEDS: ASPIRIN COATED 81 MG TABLET.EC PO SCH (09:42)
[2019-03-01] MEDS: TOPIRAMATE 25 MG TABLET (FP) PO SCH ×2 (09:44→21:07)
[2019-03-01] MEDS ORDERED: PT OWN MED DRAWER 7, Y5N ONE ×3 (09:44→16:26)
[2019-03-01] MEDS: MELATONIN 5 MG TABLETS PO PRN (21:02)
[2019-03-01] MEDS: ATORVASTATIN CA 20 MG TABLET (FP) PO SCH (21:02)
[2019-03-01] MEDS: DOCUSATE SODIUM 100 MG CAPSULE (FP) PO SCH (21:02)
[2019-03-01] MEDS: THIAMINE HCL 100 MG TABLET (FP) PO SCH (21:02)
[2019-03-01] MEDS: QUEtiapine FUMARATE 200 MG TABLET PO SCH (21:02)
[2019-03-02] MEDS ORDERED: METHADONE HCL 40 MG DISPERSABLE TABLET ONE (05:27)
[2019-03-02] MEDS ORDERED: METHADONE HCL 10 MG TABLET ONE (05:27)
[2019-03-02] MEDS: METHADONE 40 MG, METHADONE 30 MG PO SCH (05:52)
[2019-03-02] MEDS: hydrOXYzine PAMOATE 50 MG CAPSULE (FP) PO PRN ×3 (05:53→21:22)
[2019-03-02] MEDS: LISINOPRIL 20 MG TABLET (FP) PO SCH (05:53)
[2019-03-02] MEDS: METHOCARBAMOL 500 MG TABLET PO PRN ×3 (05:53→21:23)
[2019-03-02] MEDS ORDERED: INSULIN (NOVOLOG) ASPART 100 UNITS/ML 10ML VIAL ONE ×3 (06:24→21:24)
[2019-03-02] MEDS: INSULIN SLIDING SCALE (NOVOLOG) 1 VIAL SQ SCH ×4 (06:48→21:24)
[2019-03-02] MEDS: glipiZIDE 5 MG TABLET (FP) PO SCH (06:48)
[2019-03-02] MEDS: TAMSULOSIN HCL 0.4 MG CAP PO SCH (07:40)
[2019-03-02] MEDS: LIPASE/PROTEASE/AMYLASE 6,000 UNIT CAPSULE PO SCH ×2 (07:40→19:21)
[2019-03-02] MEDS ORDERED: PT OWN MED DRAWER 7, Y5N ONE ×2 (08:37→21:17)
[2019-03-02] MEDS: FERROUS SO4 325 MG TABLET (FP) PO SCH (09:42)
[2019-03-02] MEDS: PRENATAL VITAMINS W/ FOLIC ACID TABLET (FP) PO SCH (09:42)
[2019-03-02] MEDS: TOPIRAMATE 25 MG TABLET (FP) PO SCH ×2 (09:42→21:23)
[2019-03-02] MEDS: FAMOTIDINE 20 MG TABLET PO SCH (09:42)
[2019-03-02] MEDS: NIFEdipine E.R. 30 MG TABLET (FP) PO SCH (09:42)
[2019-03-02] MEDS: BUDESONIDE/FORMETEROL FUMARATE 80/4.5 mcg INHALER IH SCH ×2 (09:42→23:05)
[2019-03-02] MEDS: ASPIRIN COATED 81 MG TABLET.EC PO SCH (09:42)
[2019-03-02] MEDS: NICOTINE 21 MG/24 HOURS TOPICAL PATCH TD SCH (09:43)
[2019-03-02] MEDS: DOCUSATE SODIUM 100 MG CAPSULE (FP) PO SCH (21:13)
[2019-03-02] MEDS: THIAMINE HCL 100 MG TABLET (FP) PO SCH (21:13)
[2019-03-02] MEDS: QUEtiapine FUMARATE 200 MG TABLET PO SCH (21:13)
[2019-03-02] MEDS: ATORVASTATIN CA 20 MG TABLET (FP) PO SCH (21:14)
[2019-03-03] MEDS ORDERED: METHADONE HCL 10 MG TABLET ONE (05:52)
[2019-03-03] MEDS ORDERED: METHADONE HCL 40 MG DISPERSABLE TABLET ONE (05:52)
[2019-03-03] MEDS: METHADONE 40 MG, METHADONE 30 MG PO SCH (06:04)
[2019-03-03] MEDS: LISINOPRIL 20 MG TABLET (FP) PO SCH (06:04)
[2019-03-03] MEDS: glipiZIDE 5 MG TABLET (FP) PO SCH (06:04)
[2019-03-03] MEDS: hydrOXYzine PAMOATE 50 MG CAPSULE (FP) PO PRN ×3 (06:04→21:03)
[2019-03-03] MEDS: METHOCARBAMOL 500 MG TABLET PO PRN ×2 (06:04→12:54)
[2019-03-03] MEDS ORDERED: INSULIN (NOVOLOG) ASPART 100 UNITS/ML 10ML VIAL ONE (06:43)
[2019-03-03] MEDS: INSULIN SLIDING SCALE (NOVOLOG) 1 VIAL SQ SCH ×4 (08:02→21:04)
[2019-03-03] MEDS: LIPASE/PROTEASE/AMYLASE 6,000 UNIT CAPSULE PO SCH ×2 (08:02→16:30)
[2019-03-03] MEDS: TAMSULOSIN HCL 0.4 MG CAP PO SCH (08:02)
[2019-03-03] MEDS: NICOTINE POLACRILEX 2 MG GUM BUC PRN (09:03)
[2019-03-03] MEDS: BUDESONIDE/FORMETEROL FUMARATE 80/4.5 mcg INHALER IH SCH ×2 (09:35→21:03)
[2019-03-03] MEDS: FERROUS SO4 325 MG TABLET (FP) PO SCH (09:35)
[2019-03-03] MEDS: NIFEdipine E.R. 30 MG TABLET (FP) PO SCH (09:35)
[2019-03-03] MEDS: TOPIRAMATE 25 MG TABLET (FP) PO SCH ×2 (09:35→21:03)
[2019-03-03] MEDS: PRENATAL VITAMINS W/ FOLIC ACID TABLET (FP) PO SCH (09:35)
[2019-03-03] MEDS: NICOTINE 21 MG/24 HOURS TOPICAL PATCH TD SCH (09:35)
[2019-03-03] MEDS: FAMOTIDINE 20 MG TABLET PO SCH (09:35)
[2019-03-03] MEDS: ASPIRIN COATED 81 MG TABLET.EC PO SCH (09:35)
[2019-03-03] MEDS ORDERED: PT OWN MED DRAWER 7, Y5N ONE (10:38)
[2019-03-03] MEDS: QUEtiapine FUMARATE 200 MG TABLET PO SCH (21:03)
[2019-03-03] MEDS: ATORVASTATIN CA 20 MG TABLET (FP) PO SCH (21:03)
[2019-03-03] MEDS: DOCUSATE SODIUM 100 MG CAPSULE (FP) PO SCH (21:03)
[2019-03-03] MEDS: THIAMINE HCL 100 MG TABLET (FP) PO SCH (21:04)
[2019-03-04] MEDS ORDERED: METHADONE HCL 40 MG DISPERSABLE TABLET ONE (05:50)
[2019-03-04] MEDS ORDERED: METHADONE HCL 10 MG TABLET ONE (05:50)
[2019-03-04] MEDS: hydrOXYzine PAMOATE 50 MG CAPSULE (FP) PO PRN ×3 (06:01→21:04)
[2019-03-04] MEDS: METHADONE 40 MG, METHADONE 30 MG PO SCH (06:01)
[2019-03-04] MEDS: METHOCARBAMOL 500 MG TABLET PO PRN ×2 (06:01→12:34)
[2019-03-04] MEDS: LISINOPRIL 20 MG TABLET (FP) PO SCH (06:01)
[2019-03-04] MEDS: glipiZIDE 5 MG TABLET (FP) PO SCH (06:03)
[2019-03-04] MEDS ORDERED: INSULIN (NOVOLOG) ASPART 100 UNITS/ML 10ML VIAL ONE ×3 (06:41→16:23)
[2019-03-04] MEDS: TAMSULOSIN HCL 0.4 MG CAP PO SCH (07:48)
[2019-03-04] MEDS: LIPASE/PROTEASE/AMYLASE 6,000 UNIT CAPSULE PO SCH ×2 (07:48→16:32)
[2019-03-04] MEDS: INSULIN SLIDING SCALE (NOVOLOG) 1 VIAL SQ SCH ×4 (07:49→21:03)
[2019-03-04] MEDS ORDERED: PT OWN MED DRAWER 7, Y5N ONE (08:46)
[2019-03-04] MEDS: NICOTINE 21 MG/24 HOURS TOPICAL PATCH TD SCH (09:44)
[2019-03-04] MEDS: ASPIRIN COATED 81 MG TABLET.EC PO SCH (09:44)
[2019-03-04] MEDS: NIFEdipine E.R. 30 MG TABLET (FP) PO SCH (09:44)
[2019-03-04] MEDS: BUDESONIDE/FORMETEROL FUMARATE 80/4.5 mcg INHALER IH SCH ×2 (09:44→21:04)
[2019-03-04] MEDS: FAMOTIDINE 20 MG TABLET PO SCH (09:44)
[2019-03-04] MEDS: FERROUS SO4 325 MG TABLET (FP) PO SCH (09:44)
[2019-03-04] MEDS: TOPIRAMATE 25 MG TABLET (FP) PO SCH ×2 (09:45→21:03)
[2019-03-04] MEDS: PRENATAL VITAMINS W/ FOLIC ACID TABLET (FP) PO SCH (09:45)
[2019-03-04] MEDS: QUEtiapine FUMARATE 200 MG TABLET PO SCH (21:03)
[2019-03-04] MEDS: THIAMINE HCL 100 MG TABLET (FP) PO SCH (21:03)
[2019-03-04] MEDS: ATORVASTATIN CA 20 MG TABLET (FP) PO SCH (21:03)
[2019-03-04] MEDS: MELATONIN 5 MG TABLETS PO PRN (21:03)
[2019-03-04] MEDS: DOCUSATE SODIUM 100 MG CAPSULE (FP) PO SCH (21:03)
[2019-03-05] MEDS ORDERED: METHADONE HCL 10 MG TABLET ONE (05:30)
[2019-03-05] MEDS ORDERED: METHADONE HCL 40 MG DISPERSABLE TABLET ONE (05:30)
[2019-03-05] MEDS: hydrOXYzine PAMOATE 50 MG CAPSULE (FP) PO PRN ×3 (05:43→21:23)
[2019-03-05] MEDS: METHOCARBAMOL 500 MG TABLET PO PRN ×3 (05:43→21:25)
[2019-03-05] MEDS: LISINOPRIL 20 MG TABLET (FP) PO SCH (05:43)
[2019-03-05] MEDS: METHADONE 40 MG, METHADONE 30 MG PO SCH (05:43)
[2019-03-05] MEDS ORDERED: INSULIN (NOVOLOG) ASPART 100 UNITS/ML 10ML VIAL ONE ×2 (07:04→11:49)
[2019-03-05] MEDS: INSULIN SLIDING SCALE (NOVOLOG) 1 VIAL SQ SCH ×4 (07:05→22:08)
[2019-03-05] MEDS: glipiZIDE 5 MG TABLET (FP) PO SCH (07:05)
[2019-03-05] MEDS: TAMSULOSIN HCL 0.4 MG CAP PO SCH (07:40)
[2019-03-05] MEDS: LIPASE/PROTEASE/AMYLASE 6,000 UNIT CAPSULE PO SCH ×2 (07:40→16:44)
[2019-03-05] MEDS ORDERED: PT OWN MED DRAWER 7, Y5N ONE ×4 (09:01→21:25)
[2019-03-05] MEDS: ASPIRIN COATED 81 MG TABLET.EC PO SCH (09:33)
[2019-03-05] MEDS: NIFEdipine E.R. 30 MG TABLET (FP) PO SCH (09:33)
[2019-03-05] MEDS: BUDESONIDE/FORMETEROL FUMARATE 80/4.5 mcg INHALER IH SCH ×2 (09:33→21:24)
[2019-03-05] MEDS: PRENATAL VITAMINS W/ FOLIC ACID TABLET (FP) PO SCH (09:33)
[2019-03-05] MEDS: FERROUS SO4 325 MG TABLET (FP) PO SCH (09:34)
[2019-03-05] MEDS: TOPIRAMATE 25 MG TABLET (FP) PO SCH ×2 (09:34→21:25)
[2019-03-05] MEDS: FAMOTIDINE 20 MG TABLET PO SCH (09:34)
[2019-03-05] MEDS: NICOTINE 21 MG/24 HOURS TOPICAL PATCH TD SCH (09:34)
[2019-03-05] MEDS: ALBUTEROL SO4 8 GM HFA INHALER IH PRN (09:35)
[2019-03-05] MEDS: NICOTINE POLACRILEX 2 MG GUM BUC PRN (10:28)
[2019-03-05] MEDS: ATORVASTATIN CA 20 MG TABLET (FP) PO SCH (21:23)
[2019-03-05] MEDS: MELATONIN 5 MG TABLETS PO PRN (21:23)
[2019-03-05] MEDS: DOCUSATE SODIUM 100 MG CAPSULE (FP) PO SCH (21:23)
[2019-03-05] MEDS: QUEtiapine FUMARATE 200 MG TABLET PO SCH (21:23)
[2019-03-05] MEDS: THIAMINE HCL 100 MG TABLET (FP) PO SCH (21:23)
[2019-03-06] MEDS ORDERED: METHADONE HCL 10 MG TABLET ONE (05:29)
[2019-03-06] MEDS ORDERED: METHADONE HCL 40 MG DISPERSABLE TABLET ONE (05:29)
[2019-03-06] MEDS: METHOCARBAMOL 500 MG TABLET PO PRN ×3 (05:49→21:14)
[2019-03-06] MEDS: LISINOPRIL 20 MG TABLET (FP) PO SCH (05:49)
[2019-03-06] MEDS: hydrOXYzine PAMOATE 50 MG CAPSULE (FP) PO PRN ×3 (05:49→21:14)
[2019-03-06] MEDS: METHADONE 40 MG, METHADONE 30 MG PO SCH (05:50)
[2019-03-06] MEDS ORDERED: INSULIN (NOVOLOG) ASPART 100 UNITS/ML 10ML VIAL ONE ×2 (07:03→11:41)
[2019-03-06] MEDS: INSULIN SLIDING SCALE (NOVOLOG) 1 VIAL SQ SCH ×4 (07:03→21:10)
[2019-03-06] MEDS: glipiZIDE 5 MG TABLET (FP) PO SCH (07:03)
[2019-03-06] MEDS: LIPASE/PROTEASE/AMYLASE 6,000 UNIT CAPSULE PO SCH ×2 (07:52→16:40)
[2019-03-06] MEDS: TAMSULOSIN HCL 0.4 MG CAP PO SCH (07:52)
[2019-03-06] MEDS: FAMOTIDINE 20 MG TABLET PO SCH (09:35)
[2019-03-06] MEDS: PRENATAL VITAMINS W/ FOLIC ACID TABLET (FP) PO SCH (09:35)
[2019-03-06] MEDS: FERROUS SO4 325 MG TABLET (FP) PO SCH (09:35)
[2019-03-06] MEDS: NICOTINE 21 MG/24 HOURS TOPICAL PATCH TD SCH (09:36)
[2019-03-06] MEDS: NIFEdipine E.R. 30 MG TABLET (FP) PO SCH (09:36)
[2019-03-06] MEDS: BUDESONIDE/FORMETEROL FUMARATE 80/4.5 mcg INHALER IH SCH ×2 (09:36→21:11)
[2019-03-06] MEDS: ASPIRIN COATED 81 MG TABLET.EC PO SCH (09:36)
[2019-03-06] MEDS: TOPIRAMATE 25 MG TABLET (FP) PO SCH ×2 (09:36→21:13)
[2019-03-06] MEDS: ALBUTEROL SO4 8 GM HFA INHALER IH PRN ×2 (09:38→21:14)
[2019-03-06] MEDS: NICOTINE POLACRILEX 2 MG GUM BUC PRN (11:42)
[2019-03-06] MEDS: DOCUSATE SODIUM 100 MG CAPSULE (FP) PO SCH (21:11)
[2019-03-06] MEDS: QUEtiapine FUMARATE 200 MG TABLET PO SCH (21:11)
[2019-03-06] MEDS: ATORVASTATIN CA 20 MG TABLET (FP) PO SCH (21:46)
[2019-03-06] MEDS: THIAMINE HCL 100 MG TABLET (FP) PO SCH (21:47)
[2019-03-07] MEDS ORDERED: METHADONE HCL 40 MG DISPERSABLE TABLET ONE (03:43)
[2019-03-07] MEDS ORDERED: METHADONE HCL 10 MG TABLET ONE (03:43)
[2019-03-07] MEDS ORDERED: PT OWN MED DRAWER 7, Y5N ONE ×2 (03:46→16:31)
[2019-03-07] MEDS: METHADONE 40 MG, METHADONE 30 MG PO SCH (05:46)
[2019-03-07] MEDS: LISINOPRIL 20 MG TABLET (FP) PO SCH (05:47)
[2019-03-07] MEDS: hydrOXYzine PAMOATE 50 MG CAPSULE (FP) PO PRN ×3 (05:50→21:11)
[2019-03-07] MEDS: METHOCARBAMOL 500 MG TABLET PO PRN ×3 (05:50→21:11)
[2019-03-07] MEDS ORDERED: INSULIN (NOVOLOG) ASPART 100 UNITS/ML 10ML VIAL ONE (05:55)
[2019-03-07] MEDS: glipiZIDE 5 MG TABLET (FP) PO SCH (06:12)
[2019-03-07] MEDS: LACTULOSE 20 GM/30 ML UDC (FOR ORAL USE ONLY) PO PRN (07:35)
[2019-03-07] MEDS: LIPASE/PROTEASE/AMYLASE 6,000 UNIT CAPSULE PO SCH ×2 (07:36→16:33)
[2019-03-07] MEDS: INSULIN SLIDING SCALE (NOVOLOG) 1 VIAL SQ SCH ×4 (07:37→21:09)
[2019-03-07] MEDS: FERROUS SO4 325 MG TABLET (FP) PO SCH (09:04)
[2019-03-07] MEDS: PRENATAL VITAMINS W/ FOLIC ACID TABLET (FP) PO SCH (09:04)
[2019-03-07] MEDS: ASPIRIN COATED 81 MG TABLET.EC PO SCH (09:04)
[2019-03-07] MEDS: TAMSULOSIN HCL 0.4 MG CAP PO SCH (09:04)
[2019-03-07] MEDS: FAMOTIDINE 20 MG TABLET PO SCH (09:04)
[2019-03-07] MEDS: TOPIRAMATE 25 MG TABLET (FP) PO SCH ×2 (09:05→21:10)
[2019-03-07] MEDS: NICOTINE 21 MG/24 HOURS TOPICAL PATCH TD SCH (09:05)
[2019-03-07] MEDS: NICOTINE POLACRILEX 2 MG GUM BUC PRN (09:06)
[2019-03-07] MEDS: NIFEdipine E.R. 30 MG TABLET (FP) PO SCH (09:08)
[2019-03-07] MEDS: BUDESONIDE/FORMETEROL FUMARATE 80/4.5 mcg INHALER IH SCH ×2 (11:27→21:57)
[2019-03-07] MEDS: ATORVASTATIN CA 20 MG TABLET (FP) PO SCH (21:10)
[2019-03-07] MEDS: THIAMINE HCL 100 MG TABLET (FP) PO SCH (21:10)
[2019-03-07] MEDS: DOCUSATE SODIUM 100 MG CAPSULE (FP) PO SCH (21:10)
[2019-03-07] MEDS: MELATONIN 5 MG TABLETS PO PRN (21:10)
[2019-03-07] MEDS: QUEtiapine FUMARATE 200 MG TABLET PO SCH (21:10)
[2019-03-08] MEDS ORDERED: METHADONE HCL 10 MG TABLET ONE (05:28)
[2019-03-08] MEDS ORDERED: METHADONE HCL 40 MG DISPERSABLE TABLET ONE (05:28)
[2019-03-08] MEDS: hydrOXYzine PAMOATE 50 MG CAPSULE (FP) PO PRN ×3 (05:46→21:03)
[2019-03-08] MEDS: METHOCARBAMOL 500 MG TABLET PO PRN ×3 (05:46→21:04)
[2019-03-08] MEDS: LISINOPRIL 20 MG TABLET (FP) PO SCH (05:46)
[2019-03-08] MEDS: METHADONE 40 MG, METHADONE 30 MG PO SCH (05:47)
[2019-03-08] MEDS ORDERED: INSULIN (NOVOLOG) ASPART 100 UNITS/ML 10ML VIAL ONE ×3 (06:44→16:24)
[2019-03-08] MEDS: INSULIN SLIDING SCALE (NOVOLOG) 1 VIAL SQ SCH ×4 (07:24→21:01)
[2019-03-08] MEDS: glipiZIDE 5 MG TABLET (FP) PO SCH (07:24)
[2019-03-08] MEDS: TAMSULOSIN HCL 0.4 MG CAP PO SCH (07:37)
[2019-03-08] MEDS: LACTULOSE 20 GM/30 ML UDC (FOR ORAL USE ONLY) PO PRN (07:39)
[2019-03-08] MEDS: LIPASE/PROTEASE/AMYLASE 6,000 UNIT CAPSULE PO SCH ×2 (07:40→16:33)
[2019-03-08] MEDS: FAMOTIDINE 20 MG TABLET PO SCH (09:44)
[2019-03-08] MEDS: TOPIRAMATE 25 MG TABLET (FP) PO SCH ×2 (09:45→21:02)
[2019-03-08] MEDS: NICOTINE 21 MG/24 HOURS TOPICAL PATCH TD SCH (09:45)
[2019-03-08] MEDS: ASPIRIN COATED 81 MG TABLET.EC PO SCH (09:45)
[2019-03-08] MEDS: PRENATAL VITAMINS W/ FOLIC ACID TABLET (FP) PO SCH (09:45)
[2019-03-08] MEDS: FERROUS SO4 325 MG TABLET (FP) PO SCH (09:45)
[2019-03-08] MEDS: BUDESONIDE/FORMETEROL FUMARATE 80/4.5 mcg INHALER IH SCH ×2 (09:45→22:01)
[2019-03-08] MEDS: NIFEdipine E.R. 30 MG TABLET (FP) PO SCH (09:45)
[2019-03-08] MEDS ORDERED: PT OWN MED DRAWER 7, Y5N ONE (10:47)
[2019-03-08] MEDS: DOCUSATE SODIUM 100 MG CAPSULE (FP) PO SCH (21:02)
[2019-03-08] MEDS: ATORVASTATIN CA 20 MG TABLET (FP) PO SCH (21:02)
[2019-03-08] MEDS: QUEtiapine FUMARATE 200 MG TABLET PO SCH (21:02)
[2019-03-08] MEDS: THIAMINE HCL 100 MG TABLET (FP) PO SCH (21:02)
[2019-03-08] MEDS: MELATONIN 5 MG TABLETS PO PRN (21:02)
[2019-03-09] MEDS ORDERED: METHADONE HCL 40 MG DISPERSABLE TABLET ONE (05:50)
[2019-03-09] MEDS ORDERED: METHADONE HCL 10 MG TABLET ONE (05:50)
[2019-03-09] MEDS: METHADONE 40 MG, METHADONE 30 MG PO SCH (06:06)
[2019-03-09] MEDS: LISINOPRIL 20 MG TABLET (FP) PO SCH (06:06)
[2019-03-09] MEDS: hydrOXYzine PAMOATE 50 MG CAPSULE (FP) PO PRN ×3 (06:06→21:18)
[2019-03-09] MEDS: METHOCARBAMOL 500 MG TABLET PO PRN ×3 (06:06→21:18)
[2019-03-09] MEDS: glipiZIDE 5 MG TABLET (FP) PO SCH (06:06)
[2019-03-09] MEDS: INSULIN SLIDING SCALE (NOVOLOG) 1 VIAL SQ SCH ×4 (06:10→21:17)
[2019-03-09] MEDS ORDERED: INSULIN (NOVOLOG) ASPART 100 UNITS/ML 10ML VIAL ONE ×2 (06:50→11:57)
[2019-03-09] MEDS: LIPASE/PROTEASE/AMYLASE 6,000 UNIT CAPSULE PO SCH ×2 (07:00→16:30)
[2019-03-09] MEDS: TAMSULOSIN HCL 0.4 MG CAP PO SCH (07:49)
[2019-03-09] MEDS: NIFEdipine E.R. 30 MG TABLET (FP) PO SCH (09:56)
[2019-03-09] MEDS: FAMOTIDINE 20 MG TABLET PO SCH (09:56)
[2019-03-09] MEDS: NICOTINE 21 MG/24 HOURS TOPICAL PATCH TD SCH (09:56)
[2019-03-09] MEDS: ASPIRIN COATED 81 MG TABLET.EC PO SCH (09:56)
[2019-03-09] MEDS: TOPIRAMATE 25 MG TABLET (FP) PO SCH ×2 (09:56→21:18)
[2019-03-09] MEDS: FERROUS SO4 325 MG TABLET (FP) PO SCH (09:56)
[2019-03-09] MEDS: PRENATAL VITAMINS W/ FOLIC ACID TABLET (FP) PO SCH (09:56)
[2019-03-09] MEDS: BUDESONIDE/FORMETEROL FUMARATE 80/4.5 mcg INHALER IH SCH ×2 (09:58→21:58)
[2019-03-09] MEDS: ALBUTEROL SO4 8 GM HFA INHALER IH PRN (09:58)
[2019-03-09] MEDS: NICOTINE POLACRILEX 2 MG GUM BUC PRN (09:59)
[2019-03-09] MEDS: ATORVASTATIN CA 20 MG TABLET (FP) PO SCH (21:18)
[2019-03-09] MEDS: THIAMINE HCL 100 MG TABLET (FP) PO SCH (21:18)
[2019-03-09] MEDS: DOCUSATE SODIUM 100 MG CAPSULE (FP) PO SCH (21:18)
[2019-03-09] MEDS: MELATONIN 5 MG TABLETS PO PRN (21:18)
[2019-03-09] MEDS: QUEtiapine FUMARATE 200 MG TABLET PO SCH (21:18)
[2019-03-10] MEDS ORDERED: METHADONE HCL 10 MG TABLET ONE (05:27)
[2019-03-10] MEDS ORDERED: METHADONE HCL 40 MG DISPERSABLE TABLET ONE (05:27)
[2019-03-10] MEDS: METHADONE 40 MG, METHADONE 30 MG PO SCH (06:16)
[2019-03-10] MEDS: hydrOXYzine PAMOATE 50 MG CAPSULE (FP) PO PRN ×3 (06:16→21:04)
[2019-03-10] MEDS: METHOCARBAMOL 500 MG TABLET PO PRN ×3 (06:16→21:03)
[2019-03-10] MEDS: LISINOPRIL 20 MG TABLET (FP) PO SCH (06:16)
[2019-03-10] MEDS ORDERED: INSULIN (NOVOLOG) ASPART 100 UNITS/ML 10ML VIAL ONE ×2 (07:17→16:20)
[2019-03-10] MEDS: glipiZIDE 5 MG TABLET (FP) PO SCH (07:18)
[2019-03-10] MEDS: INSULIN SLIDING SCALE (NOVOLOG) 1 VIAL SQ SCH ×4 (07:18→21:03)
[2019-03-10] MEDS: LIPASE/PROTEASE/AMYLASE 6,000 UNIT CAPSULE PO SCH ×2 (07:19→16:36)
[2019-03-10] MEDS: TAMSULOSIN HCL 0.4 MG CAP PO SCH (07:36)
[2019-03-10] MEDS ORDERED: PT OWN MED DRAWER 7, Y5N ONE (08:59)
[2019-03-10] MEDS: TOPIRAMATE 25 MG TABLET (FP) PO SCH ×2 (09:47→21:03)
[2019-03-10] MEDS: BUDESONIDE/FORMETEROL FUMARATE 80/4.5 mcg INHALER IH SCH ×2 (09:47→21:04)
[2019-03-10] MEDS: FAMOTIDINE 20 MG TABLET PO SCH (09:47)
[2019-03-10] MEDS: ASPIRIN COATED 81 MG TABLET.EC PO SCH (09:47)
[2019-03-10] MEDS: FERROUS SO4 325 MG TABLET (FP) PO SCH (09:47)
[2019-03-10] MEDS: NIFEdipine E.R. 30 MG TABLET (FP) PO SCH (09:47)
[2019-03-10] MEDS: NICOTINE 21 MG/24 HOURS TOPICAL PATCH TD SCH (09:47)
[2019-03-10] MEDS: PRENATAL VITAMINS W/ FOLIC ACID TABLET (FP) PO SCH (09:47)
[2019-03-10] MEDS: NICOTINE POLACRILEX 2 MG GUM BUC PRN (09:50)
[2019-03-10] MEDS: THIAMINE HCL 100 MG TABLET (FP) PO SCH (21:02)
[2019-03-10] MEDS: ATORVASTATIN CA 20 MG TABLET (FP) PO SCH (21:03)
[2019-03-10] MEDS: DOCUSATE SODIUM 100 MG CAPSULE (FP) PO SCH (21:03)
[2019-03-10] MEDS: MELATONIN 5 MG TABLETS PO PRN (21:03)
[2019-03-10] MEDS: QUEtiapine FUMARATE 200 MG TABLET PO SCH (21:04)
[2019-03-11] MEDS ORDERED: METHADONE HCL 10 MG TABLET ONE (05:25)
[2019-03-11] MEDS ORDERED: METHADONE HCL 40 MG DISPERSABLE TABLET ONE (05:25)
[2019-03-11] MEDS: METHADONE 40 MG, METHADONE 30 MG PO SCH (05:53)
[2019-03-11] MEDS: METHOCARBAMOL 500 MG TABLET PO PRN ×2 (05:54→11:38)
[2019-03-11] MEDS: hydrOXYzine PAMOATE 50 MG CAPSULE (FP) PO PRN ×3 (05:54→21:19)
[2019-03-11] MEDS: LISINOPRIL 20 MG TABLET (FP) PO SCH (05:54)
[2019-03-11] MEDS: NICOTINE POLACRILEX 2 MG GUM BUC PRN ×2 (05:57→09:45)
[2019-03-11] MEDS ORDERED: INSULIN (NOVOLOG) ASPART 100 UNITS/ML 10ML VIAL ONE ×3 (06:37→16:51)
[2019-03-11] MEDS: INSULIN SLIDING SCALE (NOVOLOG) 1 VIAL SQ SCH ×4 (06:38→21:26)
[2019-03-11] MEDS: glipiZIDE 5 MG TABLET (FP) PO SCH (06:38)
[2019-03-11] MEDS: TAMSULOSIN HCL 0.4 MG CAP PO SCH (07:39)
[2019-03-11] MEDS: LIPASE/PROTEASE/AMYLASE 6,000 UNIT CAPSULE PO SCH ×2 (07:39→16:53)
[2019-03-11] MEDS: TOPIRAMATE 25 MG TABLET (FP) PO SCH ×2 (09:44→21:18)
[2019-03-11] MEDS: PRENATAL VITAMINS W/ FOLIC ACID TABLET (FP) PO SCH (09:44)
[2019-03-11] MEDS: FERROUS SO4 325 MG TABLET (FP) PO SCH (09:44)
[2019-03-11] MEDS: NIFEdipine E.R. 30 MG TABLET (FP) PO SCH (09:44)
[2019-03-11] MEDS: ASPIRIN COATED 81 MG TABLET.EC PO SCH (09:44)
[2019-03-11] MEDS: BUDESONIDE/FORMETEROL FUMARATE 80/4.5 mcg INHALER IH SCH ×2 (09:44→21:26)
[2019-03-11] MEDS: NICOTINE 21 MG/24 HOURS TOPICAL PATCH TD SCH (09:45)
[2019-03-11] MEDS: PSYLLIUM 5.85 GM PACKET PO SCH ×2 (10:20→21:17)
[2019-03-11] MEDS: FAMOTIDINE 20 MG TABLET PO SCH (10:20)
[2019-03-11] MEDS ORDERED: PT OWN MED DRAWER 7, Y5N ONE ×3 (10:35→21:18)
[2019-03-11] MEDS: QUEtiapine FUMARATE 200 MG TABLET PO SCH (21:19)
[2019-03-11] MEDS: DOCUSATE SODIUM 100 MG CAPSULE (FP) PO SCH (21:19)
[2019-03-11] MEDS: THIAMINE HCL 100 MG TABLET (FP) PO SCH (21:19)
[2019-03-11] MEDS: ATORVASTATIN CA 20 MG TABLET (FP) PO SCH (21:20)
[2019-03-11] MEDS: MELATONIN 5 MG TABLETS PO PRN (21:21)
[2019-03-12] MEDS ORDERED: PT OWN MED DRAWER 7, Y5N ONE ×3 (03:52→19:14)
[2019-03-12] MEDS ORDERED: METHADONE HCL 40 MG DISPERSABLE TABLET ONE (05:53)
[2019-03-12] MEDS ORDERED: METHADONE HCL 10 MG TABLET ONE (05:53)
[2019-03-12] MEDS: METHADONE 40 MG, METHADONE 30 MG PO SCH (06:05)
[2019-03-12] MEDS: LISINOPRIL 20 MG TABLET (FP) PO SCH (06:05)
[2019-03-12] MEDS: METHOCARBAMOL 500 MG TABLET PO PRN ×2 (06:05→21:01)
[2019-03-12] MEDS: hydrOXYzine PAMOATE 50 MG CAPSULE (FP) PO PRN ×3 (06:05→21:01)
[2019-03-12] MEDS: glipiZIDE 5 MG TABLET (FP) PO SCH (06:05)
[2019-03-12] MEDS: INSULIN SLIDING SCALE (NOVOLOG) 1 VIAL SQ SCH ×4 (06:08→21:01)
[2019-03-12] MEDS ORDERED: INSULIN (NOVOLOG) ASPART 100 UNITS/ML 10ML VIAL ONE (06:21)
[2019-03-12] MEDS: TAMSULOSIN HCL 0.4 MG CAP PO SCH (08:09)
[2019-03-12] MEDS: LIPASE/PROTEASE/AMYLASE 6,000 UNIT CAPSULE PO SCH ×2 (08:09→16:34)
[2019-03-12] MEDS: PSYLLIUM 5.85 GM PACKET PO SCH ×2 (09:18→21:01)
[2019-03-12] MEDS: FAMOTIDINE 20 MG TABLET PO SCH (09:18)
[2019-03-12] MEDS: PRENATAL VITAMINS W/ FOLIC ACID TABLET (FP) PO SCH (09:18)
[2019-03-12] MEDS: ASPIRIN COATED 81 MG TABLET.EC PO SCH (09:18)
[2019-03-12] MEDS: FERROUS SO4 325 MG TABLET (FP) PO SCH (09:18)
[2019-03-12] MEDS: NICOTINE 21 MG/24 HOURS TOPICAL PATCH TD SCH (09:18)
[2019-03-12] MEDS: BUDESONIDE/FORMETEROL FUMARATE 80/4.5 mcg INHALER IH SCH ×2 (09:18→21:03)
[2019-03-12] MEDS: TOPIRAMATE 25 MG TABLET (FP) PO SCH ×2 (09:18→21:00)
[2019-03-12] MEDS: NIFEdipine E.R. 30 MG TABLET (FP) PO SCH (09:18)
[2019-03-12] MEDS: NICOTINE POLACRILEX 2 MG GUM BUC PRN (11:13)
[2019-03-12] MEDS: MELATONIN 5 MG TABLETS PO PRN (21:00)
[2019-03-12] MEDS: QUEtiapine FUMARATE 200 MG TABLET PO SCH (21:00)
[2019-03-12] MEDS: THIAMINE HCL 100 MG TABLET (FP) PO SCH (21:00)
[2019-03-12] MEDS: DOCUSATE SODIUM 100 MG CAPSULE (FP) PO SCH (21:00)
[2019-03-12] MEDS: ATORVASTATIN CA 20 MG TABLET (FP) PO SCH (21:00)
[2019-03-13] MEDS ORDERED: METHADONE HCL 10 MG TABLET ONE (05:56)
[2019-03-13] MEDS ORDERED: METHADONE HCL 40 MG DISPERSABLE TABLET ONE (05:56)
[2019-03-13] MEDS: LISINOPRIL 20 MG TABLET (FP) PO SCH (06:00)
[2019-03-13] MEDS: METHADONE 40 MG, METHADONE 30 MG PO SCH (06:00)
[2019-03-13] MEDS: hydrOXYzine PAMOATE 50 MG CAPSULE (FP) PO PRN ×3 (06:01→21:02)
[2019-03-13] MEDS: METHOCARBAMOL 500 MG TABLET PO PRN ×3 (06:01→21:02)
[2019-03-13] MEDS: glipiZIDE 5 MG TABLET (FP) PO SCH (06:02)
[2019-03-13] MEDS ORDERED: INSULIN (NOVOLOG) ASPART 100 UNITS/ML 10ML VIAL ONE ×2 (06:19→11:13)
[2019-03-13] MEDS: INSULIN SLIDING SCALE (NOVOLOG) 1 VIAL SQ SCH ×4 (07:41→21:05)
[2019-03-13] MEDS: TAMSULOSIN HCL 0.4 MG CAP PO SCH (07:43)
[2019-03-13] MEDS: LIPASE/PROTEASE/AMYLASE 6,000 UNIT CAPSULE PO SCH ×2 (07:43→16:40)
[2019-03-13] MEDS: BUDESONIDE/FORMETEROL FUMARATE 80/4.5 mcg INHALER IH SCH ×2 (09:33→21:42)
[2019-03-13] MEDS: FAMOTIDINE 20 MG TABLET PO SCH (09:33)
[2019-03-13] MEDS: NICOTINE 21 MG/24 HOURS TOPICAL PATCH TD SCH (09:33)
[2019-03-13] MEDS: ASPIRIN COATED 81 MG TABLET.EC PO SCH (09:33)
[2019-03-13] MEDS: NIFEdipine E.R. 30 MG TABLET (FP) PO SCH (09:33)
[2019-03-13] MEDS: PRENATAL VITAMINS W/ FOLIC ACID TABLET (FP) PO SCH (09:33)
[2019-03-13] MEDS: FERROUS SO4 325 MG TABLET (FP) PO SCH (09:33)
[2019-03-13] MEDS: TOPIRAMATE 25 MG TABLET (FP) PO SCH ×2 (09:34→21:02)
[2019-03-13] MEDS: PSYLLIUM 5.85 GM PACKET PO SCH ×2 (09:34→21:03)
[2019-03-13] MEDS ORDERED: PT OWN MED DRAWER 7, Y5N ONE ×3 (09:34→18:38)
[2019-03-13] MEDS: ALBUTEROL SO4 8 GM HFA INHALER IH PRN (09:36)
[2019-03-13] MEDS: DOCUSATE SODIUM 100 MG CAPSULE (FP) PO SCH (21:02)
[2019-03-13] MEDS: ATORVASTATIN CA 20 MG TABLET (FP) PO SCH (21:02)
[2019-03-13] MEDS: MELATONIN 5 MG TABLETS PO PRN (21:02)
[2019-03-13] MEDS: THIAMINE HCL 100 MG TABLET (FP) PO SCH (21:02)
[2019-03-13] MEDS: QUEtiapine FUMARATE 200 MG TABLET PO SCH (21:02)
[2019-03-14] MEDS ORDERED: METHADONE HCL 40 MG DISPERSABLE TABLET ONE (05:56)
[2019-03-14] MEDS ORDERED: METHADONE HCL 10 MG TABLET ONE (05:56)
[2019-03-14] MEDS: METHOCARBAMOL 500 MG TABLET PO PRN ×3 (06:01→21:04)
[2019-03-14] MEDS: hydrOXYzine PAMOATE 50 MG CAPSULE (FP) PO PRN ×3 (06:01→21:05)
[2019-03-14] MEDS: METHADONE 40 MG, METHADONE 30 MG PO SCH (06:01)
[2019-03-14] MEDS: LISINOPRIL 20 MG TABLET (FP) PO SCH (06:01)
[2019-03-14] MEDS: glipiZIDE 5 MG TABLET (FP) PO SCH (06:02)
[2019-03-14] MEDS: TAMSULOSIN HCL 0.4 MG CAP PO SCH (07:57)
[2019-03-14] MEDS: LIPASE/PROTEASE/AMYLASE 6,000 UNIT CAPSULE PO SCH ×2 (07:57→16:52)
[2019-03-14] MEDS: INSULIN SLIDING SCALE (NOVOLOG) 1 VIAL SQ SCH ×4 (07:57→21:06)
[2019-03-14] MEDS ORDERED: PT OWN MED DRAWER 7, Y5N ONE ×4 (08:46→18:55)
[2019-03-14] MEDS: NICOTINE POLACRILEX 2 MG GUM BUC PRN (09:17)
[2019-03-14] MEDS: ASPIRIN COATED 81 MG TABLET.EC PO SCH (09:44)
[2019-03-14] MEDS: FERROUS SO4 325 MG TABLET (FP) PO SCH (09:44)
[2019-03-14] MEDS: NIFEdipine E.R. 30 MG TABLET (FP) PO SCH (09:44)
[2019-03-14] MEDS: FAMOTIDINE 20 MG TABLET PO SCH (09:44)
[2019-03-14] MEDS: PRENATAL VITAMINS W/ FOLIC ACID TABLET (FP) PO SCH (09:44)
[2019-03-14] MEDS: NICOTINE 21 MG/24 HOURS TOPICAL PATCH TD SCH (09:44)
[2019-03-14] MEDS: PSYLLIUM 5.85 GM PACKET PO SCH ×2 (09:45→21:05)
[2019-03-14] MEDS: TOPIRAMATE 25 MG TABLET (FP) PO SCH ×2 (09:47→21:04)
[2019-03-14] MEDS: BUDESONIDE/FORMETEROL FUMARATE 80/4.5 mcg INHALER IH SCH ×2 (09:49→21:06)
[2019-03-14] MEDS ORDERED: INSULIN (NOVOLOG) ASPART 100 UNITS/ML 10ML VIAL ONE (11:48)
--- NOTE | 2019-03-14 12:28 | PN ---
[facility] Progress Note Note: Patient is scheduled for discharge tomorrow. Script for 30 days supply of Seroquel 200 mg/hs will be electronically transmitted to [facility] at [address] [place], [place] [id number]
[2019-03-14] MEDS: MELATONIN 5 MG TABLETS PO PRN (21:04)
[2019-03-14] MEDS: ATORVASTATIN CA 20 MG TABLET (FP) PO SCH (21:04)
[2019-03-14] MEDS: QUEtiapine FUMARATE 200 MG TABLET PO SCH (21:04)
[2019-03-14] MEDS: DOCUSATE SODIUM 100 MG CAPSULE (FP) PO SCH (21:04)
[2019-03-14] MEDS: THIAMINE HCL 100 MG TABLET (FP) PO SCH (21:05)
[2019-03-15] MEDS ORDERED: METHADONE HCL 40 MG DISPERSABLE TABLET ONE (05:25)
[2019-03-15] MEDS ORDERED: METHADONE HCL 10 MG TABLET ONE (05:25)
[2019-03-15] MEDS: METHADONE 40 MG, METHADONE 30 MG PO SCH (05:38)
[2019-03-15] MEDS: LISINOPRIL 20 MG TABLET (FP) PO SCH (05:38)
[2019-03-15] MEDS: METHOCARBAMOL 500 MG TABLET PO PRN (05:39)
[2019-03-15] MEDS: hydrOXYzine PAMOATE 50 MG CAPSULE (FP) PO PRN (05:39)
[2019-03-15 06:33] VITALS: PULSE 73; TEMP 97.4
[2019-03-15] MEDS ORDERED: INSULIN (NOVOLOG) ASPART 100 UNITS/ML 10ML VIAL ONE (06:45)
[2019-03-15 07:15] VITALS: BP 131/94
[2019-03-15] MEDS: INSULIN SLIDING SCALE (NOVOLOG) 1 VIAL SQ SCH (07:22)
[2019-03-15] MEDS: glipiZIDE 5 MG TABLET (FP) PO SCH (07:22)
[2019-03-15] MEDS: LIPASE/PROTEASE/AMYLASE 6,000 UNIT CAPSULE PO SCH (07:26)
[2019-03-15] MEDS: TAMSULOSIN HCL 0.4 MG CAP PO SCH (07:41)
[2019-03-15] MEDS: NICOTINE POLACRILEX 2 MG GUM BUC PRN (07:44)
[2019-03-15] MEDS ORDERED: PT OWN MED DRAWER 7, Y5N ONE (08:54)
[2019-03-15] MEDS: PSYLLIUM 5.85 GM PACKET PO SCH (09:11)
[2019-03-15] MEDS: NICOTINE 21 MG/24 HOURS TOPICAL PATCH TD SCH (09:11)
[2019-03-15] MEDS: FAMOTIDINE 20 MG TABLET PO SCH (09:11)
[2019-03-15] MEDS: NIFEdipine E.R. 30 MG TABLET (FP) PO SCH (09:11)
[2019-03-15] MEDS: TOPIRAMATE 25 MG TABLET (FP) PO SCH (09:11)
[2019-03-15] MEDS: PRENATAL VITAMINS W/ FOLIC ACID TABLET (FP) PO SCH (09:11)
[2019-03-15] MEDS: ASPIRIN COATED 81 MG TABLET.EC PO SCH (09:11)
[2019-03-15] MEDS: FERROUS SO4 325 MG TABLET (FP) PO SCH (09:11)
[2019-03-15] MEDS: BUDESONIDE/FORMETEROL FUMARATE 80/4.5 mcg INHALER IH SCH (09:12)
--- NOTE | 2019-03-15 09:31 | DS ---
[facility] Rehab Discharge Summary - [facility] Rehab Discharge Summary Admission Date: 02/13/19 Discharge Date: 03/15/19 - History Pertinent Past History: Pt was admitted for alcohol detox and after completion came to rehab for the last month. Pt has multiple medical problems- diabetes- using insulin, and glipizide, also on BP meds. PE Vital Signs - 24 hr 03/15/19 03/15/19 03/15/19 03:30 06:32 07:15 Temperature 97.4 F L Pulse Rate 73 Respiratory 18 18 Rate Blood Pressure 107/104 H 131/94 Alert and oriented a/p: Use disorders- pt completed detox and rehab meds transmitted for multiple med problems pt to go to crisis center and then [facility] rehab. pt is homeless - Discharge Physical Exam Vital Signs: Vital Signs Temperature 97.4 F L 03/15/19 06:32 Pulse Rate 73 03/15/19 06:32 Respiratory Rate 18 03/15/19 06:32 Blood Pressure 131/94 03/15/19 07:15 O2 Sat by Pulse Oximetry (%) - Treatment Discharge Condition: Outpatient referral accepted - Medication Discharge Medications: Ambulatory Orders Quetiapine Fumarate [Seroquel -] 200 mg PO HS #30 tablet 02/09/19 Albuterol Sulfate Inhaler - [Ventolin HFA Inhaler -] 2 inh IH Q4H PRN #1 inh 06/01 Aspirin [Aspirin EC] 81 mg PO DAILY #14 tablet. 03/14/19 Atorvastatin Ca [Lipitor] 20 mg PO HS #14 tablet 03/14/19 Blood-Glucose Meter [Contour Next] 1 each MC AC #1 kit 03/14/19 Budesonide/Formeterol Fumarate [SYMBICORT 80/4.5mcg -] 2 inh PO BID #1 inhaler 03/14/19 Famotidine 20 mg PO BID #28 tablet 03/14/19 Ferrous Sulfate [Feosol] 325 mg PO DAILY #14 tab 03/14/19 Glipizide 5 mg PO DAILY #14 tablet 03/14/19 Lipase/Protease/Amylase [Erich Camejo 6,000 Units Capsule] 4 cap PO BID #60 capsule. 03/14/19 Lisinopril [Prinivil] 40 mg PO DAILY@0600 #14 tablet 03/14/19 Nifedipine ER [Procardia XL -] 1 tablet PO DAILY #14 tab.er.24 03/14/19 Quetiapine Fumarate [Seroquel -] 200 mg PO HS #30 tablet 03/14/19 Tamsulosin HCl [Flomax -] 0.4 mg PO DAILY@0830 #14 cap.er.24h 03/14/19 Topiramate [Topamax -] 25 mg PO BID #28 tablet 03/14/19 Blood Sugar Diagnostic [Test Strips] 1 each QID #100 strip 03/15/19 Insulin Glargine,Hum.rec.anlog [Lantus Solostar PEN (NF)] 15 ml SQ HS 30 Days # 1 ins 03/15/19 Insulin Sliding Scale [Novolog Vial Sliding Scale -] 1 vial SQ ACHS #2 units 06/29 Isopropyl Alcohol [Alcoh-Wipe] 1 each ACBK #1 towelette 03/15/19 Syringe-Needle,Insulin,0.5 ml [Insulin Syringe] 1 each QID #100 disp.syrin - Medication-Assisted Treatment (MAT) Medication-Assisted Treatment (MAT): No - Discharge Instructions Diet, activity, other medical instructions: Diet: Activity: Other medical instructions: - Follow-up Referral Minutes to complete discharge: 30 - AMA Did Patient Leave Against Medical Advice: No
== END 2019-03-15 10:05 | disposition home or self-care (01) | DRG 772 ==
LOC: YASAS 18:18 → Y3W 18:19
PROVIDERS: ADMIT Neuromusculoskeletal Medicine & OMM; ATTEND Neuromusculoskeletal Medicine & OMM
PROC: HZ42ZZZ Group Counseling for Substance Abuse Treatment, Cognitive-Behavioral (ICD-10-PCS; principal; 2019-02-13)
DX: F10.20 Alcohol dependence, uncomplicated (principal); F17.210 Nicotine dependence, cigarettes, uncomplicated; J44.9 Chronic obstructive pulmonary disease, unspecified; I12.9 Hypertensive chronic kidney disease with stage 1 through stage 4 chronic kidney disease, or unspecified chronic kidney disease; E11.22 Type 2 diabetes mellitus with diabetic chronic kidney disease; N18.9 Chronic kidney disease, unspecified; Z79.4 Long term (current) use of insulin; Z79.84 Long term (current) use of oral hypoglycemic drugs; G43.909 Migraine, unspecified, not intractable, without status migrainosus; K21.9 Gastro-esophageal reflux disease without esophagitis; K86.1 Other chronic pancreatitis; K59.00 Constipation, unspecified; Z59.0 Homelessness
CPT/HCPCS: 36415; 80053; 82140; 82962; 93005; 93010; 94640; J0735

== ENCOUNTER 2019-02-18 15:13 | Emergency (ER) | payer OTHER ==
[2019-02-18 16:50] VITALS: BMI 23.9
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
[2019-02-18] MEDS ORDERED: METOCLOPRAMIDE HCL INJECTION 10 MG/2 ML VIAL IVPUSH ONE (17:13)
[2019-02-18] MEDS ORDERED: SODIUM CHLORIDE 0.9% 500 ML INFUS.BAG IV ONE (17:13)
[2019-02-18] MEDS ORDERED: DEXAMETHASONE SOD PHOSPHATE 10 MG/1 ML VIAL IVPUSH ONE (17:13)
[2019-02-18] MEDS ORDERED: ALBUTEROL SO4 2.5/IPRATROPIUM 0.5 INH SOL 3 ML VIAL.NEB. NEB ONE ×4 (17:14→19:38)
[2019-02-18 17:24] LABS: BASO % 1.7 % (0-2.0); EOS % 0.9 % (0-4.5); HEMATOCRIT 36.5 % (35.4-49); HEMOGLOBIN 12.2 GM/dL (11.7-16.9); LYMPH % 27.3 % (8-40); MCH 33.1 pg (25.7-33.7); MCHC 33.6 g/dl (32.0-35.9); MEAN CELL VOLUME 98.7 fl (80-96); MEAN PLT VOLUME 9.4 fl (7.5-11.1); MONO % 6.4 % (3.8-10.2); NEUT % 63.7 % (42.8-82.8); PLATELET COUNT 262 K/MM3 (134-434); RDW 15.4 % (11.9-15.9); WHITE BLOOD COUNT 7.6 K/mm3 (4.0-10.0)
[2019-02-18] MEDS ORDERED: DEXAMETHASONE SOD PHOSPHATE 10 MG/1 ML VIAL ONE (17:29)
[2019-02-18] MEDS ORDERED: METOCLOPRAMIDE HCL INJECTION 10 MG/2 ML VIAL ONE (17:30)
[2019-02-18 17:36] LABS: INR 1.03 (0.83-1.09); PROTHROMBIN TIME (PATIENT) 12.1 SEC (9.7-13.0)
[2019-02-18] MEDS ORDERED: FAMOTIDINE 20 MG/50 ML IVPB 20 MG/50 ML MG IVPB ONE ×2 (17:37→17:53)
[2019-02-18] MEDS ORDERED: MAG HYDROX/AL HYDROX/SIMETH 30 ML UNIT-DOSE CUP PO ONE (17:37)
[2019-02-18] MEDS ORDERED: MAG HYDROX/AL HYDROX/SIMETH 30 ML UNIT-DOSE CUP ONE (17:53)
[2019-02-18 18:01] LABS: ALBUMIN 4.3 g/dl (3.4-5.0); ALK PHOS 161 U/L (45-117); ANION GAP 7 MMOL/L (8-16); BILIRUBIN,TOTAL 0.3 mg/dL (0.2-1); BLOOD UREA NITROGEN 23.4 mg/dL (7-18); CALCIUM 9.3 mg/dL (8.5-10.1); CHLORIDE 104 mmol/L (98-107); CO2 24 mmol/L (21-32); CREATININE 2.3 mg/dL (0.55-1.3); GLUCOSE,RANDOM 277 mg/dL (74-106); LIPASE 260 U/L (73-393); POTASSIUM 4.6 mmol/L (3.5-5.1); SGOT/AST 32 U/L (15-37); SGPT/ALT 72 U/L (13-61); SODIUM 134 mmol/L (136-145); TOT PROT 8.4 g/dl (6.4-8.2)
[2019-02-18] MEDS ORDERED: ACETAMINOPHEN 325 MG TABLET (FP) PO ONE (18:27)
--- NOTE | 2019-02-18 19:37 | PDOC ---
*Physical Exam - Vital Signs Last Vital Signs Temp Pulse Resp BP Pulse Ox 98.1 F 74 16 135/88 100 02/18/19 16:11 02/18/19 16:11 02/18/19 16:11 02/18/19 16:11 02/18/19 16:11 ED Treatment Course - LABORATORY CBC & Chemistry Diagram: 02/18/19 17:10 02/18/19 17:10 - ADDITIONAL ORDERS Additional order review: Laboratory Results 02/18/19 02/18/19 17:10 17:10 PT with INR 12.10 INR 1.03 Sodium 134 L Potassium 4.6 Chloride 104 Carbon Dioxide 24 Anion Gap 7 L BUN 23.4 H Creatinine 2.3 H Est GFR (CKD-EPI)AfAm 35.72 Est GFR (CKD-EPI)NonAf 30.82 Random Glucose 277 H Calcium 9.3 Total Bilirubin 0.3 AST 32 ALT 72 H Alkaline Phosphatase 161 H Creatine Kinase 80 Troponin I < 0.02 Total Protein 8.4 H Albumin 4.3 Lipase 260 02/18/19 17:10 RBC 3.70 L MCV 98.7 H MCHC 33.6 RDW 15.4 MPV 9.4 Neutrophils % 63.7 D Lymphocytes % 27.3 D Monocytes % 6.4 Eosinophils % 0.9 Basophils % 1.7 - Medications Given in the ED: ED Medications Discontinued Medications Generic Name Dose Route Start Last Admin Trade Name Freq PRN Reason Stop Dose Admin Al Hydroxide/Mg Hydroxide 30 ml 02/18/19 17:37 02/18/19 18:00 Mylanta Oral Suspension - PO 02/18/19 17:38 30 ml ONCE ONE Administration Albuterol/Ipratropium 1 amp 02/18/19 17:14 02/18/19 17:44 Duoneb - NEB 02/18/19 17:15 1 amp ONCE ONE Administration Dexamethasone Sodium Phosphate 10 mg 02/18/19 17:13 02/18/19 17:44 Decadron Injection - IVPUSH 02/18/19 17:14 10 mg ONCE ONE Administration Famotidine/Sodium Chloride 20 mg in 50 mls @ 100 mls/hr 02/18/19 17:37 18:00 Pepcid 20 Mg Premixed Ivpb - IVPB 02/18/19 18:06 100 mls/hr ONCE ONE Administration Metoclopramide HCl 10 mg 02/18/19 17:13 02/18/19 17:44 Reglan Injection - IVPUSH 02/18/19 17:14 10 mg ONCE ONE Administration Sodium Chloride 1,000 ml 02/18/19 17:13 02/18/19 17:44 Normal Saline - IV 02/18/19 17:14 1,000 ml ONCE ONE Administration Medical Decision Making - Medical Decision Making 02/18/19 19:36 Sign out received from Dr. Luna. 53M hx chronic pancreatitis, EtOH use disorder s/p detox, DM, HTN, CKD, COPD, IDDM, opiate use disorder on methadone transferred from [facility] for 1week HTN , headache, chest tightness, flank pain, along with wheezing. No N/V/fevers, + CVA tenderness, wheezing on exam. Received reglan, decadron. Pending: Duoneb Lung reassessment []CT head read pending []CT abdomen pelvis with oral contrast read pending Acetaminophen for headache Dispo: Pending --- - CT head negative for acute process - CT ab/pelvis pending --- On reassessment after breathing treatment, minimal wheezing noted bilaterally. 02/18/19 20:15 CT abdomen/pelvis negative for acute process. Patient requesting sandwich --- On reassessment, patient sitting comfortably, tolerating po without difficulty and reports improved breathing with improved pulmonary exam. Plan for discharge back to [facility]. Discharge - Discharge Information Problems reviewed: Yes Clinical Impression/Diagnosis: Headache Qualifiers: Headache type: unspecified Headache chronicity pattern: unspecified pattern Intractability: intractable Qualified Code(s): R51 - Headache Condition: Stable Disposition: HOME - Admission No - Follow up/Referral - Patient Discharge Instructions Patient Printed Discharge Instructions: DI for Headache Additional Instructions: You were seen in the ER for a headache, wheezing, and flank pain. CT scans of your head and abdomen were negative for anything immediately concerning - they note chronic pancreatitis that you have been diagnosed with previously. Your bloodwork was normal compared to your prior blood work. Please make sure that you follow up with your primary care provider as soon as possible, within the next 3 days. Please return to the ER if you develop any high fevers with headache, neck stiffness, weakness, confusion, chest pain, or difficulty breathing. - Post Discharge Activity
[2019-02-18] MEDS ORDERED: ACETAMINOPHEN 325 MG TABLET (FP) ONE (19:49)
[2019-02-18 20:05] VITALS: BP 145/92; PULSE 83; TEMP 98.4
--- NOTE | 2019-02-18 22:43 | PDOC ---
Documentation entered by Dejan Cloud SCRIBE, acting as scribe for Mariaelena Nelson MD. Mariaelena Nelson MD: This documentation has been prepared by the Pedro Luis dill Daniel, SCRIBE, under my direction and personally reviewed by me in its entirety. I confirm that the documentation accurately reflects all work, treatment, procedures, and medical decision making performed by me. Attending Attestation - Resident Resident Name: Sam Luna - ED Attending Attestation I have performed the following: I have examined & evaluated the patient, The case was reviewed & discussed with the resident, I agree w/resident's findings & plan, Exceptions are as noted - HPI HPI: 02/18/19 18:21 The patient is a 53 year old male with a past medical history of diabetes, HTN, CKD, COPD, chronic pancreatitis, liver cirrhosis, alcohol abuse, and opioid abuse here today for evaluation of headache, shortness of breath, and back pain. The patient reports that he went to [facility] 3 weeks ago for shortness of breath and was there for 6 days. Patient notes that he after being discharged he was at home for 1 week and drank alcohol and then voluntarily checked himself into detox and then rehab. While at rehab he developed a headache that is constant and worse with lights, bilateral low back pain, chills , and leg tingling. He also notes diffuse abdominal pain but states that this is constant. Patient was sent in for evaluation due to elevated kidney function. Patient denies lightheadedness. Denies fever, chills. Denies chest pain. Denies nausea, vomiting. Allergies: NKA - Physicial Exam PE: 02/18/19 19:00 Vital Signs - 24 hr 02/18/19 16:11 Temperature 98.1 F Pulse Rate 74 Respiratory 16 Rate Blood Pressure 135/88 O2 Sat by Pulse 100 Oximetry (%) NAD, well appearing RRR CTABL after nebs diffuse mild ttp greatest LLQ, no guarding, no rebound moving all 4 A&O x 3 - Medical Decision Making 02/18/19 19:01 53yoM hx of etoh abuse, methdone mintenance, COPD, hepatic cirrhosis presents w / multiple complaints, most notably week of headache that sounds migrainoid and sob in settng of not getting his prescribed inhalers. + multiple social issues including persistent alcoholism and medicaid restricted to [facility], limiting his ability to get his chronic medications. Found to have Cr 2.2 on [facility] labs. - labs - cxr - ekg - cardaic monitor - ctap for tender abdomen, no prior CTAP in our system - ivf, sxs control - nebs - migraine meds - dispo per results.
--- NOTE | 2019-02-21 10:19 | EKG ---
Test Reason : Blood Pressure : / mmHG Vent. Rate : 070 BPM Atrial Rate : 070 BPM P-R Int : 166 ms QRS Dur : 078 ms QT Int : 434 ms P-R-T Axes : 000 026 021 degrees QTc Int : 468 ms NORMAL SINUS RHYTHM MODERATE VOLTAGE CRITERIA FOR LVH, MAY BE NORMAL VARIANT BORDERLINE ECG WHEN COMPARED WITH ECG OF 09-FEB-2019 20:10, NO SIGNIFICANT CHANGE WAS FOUND Confirmed by CRISTINA GARY, OSMEL ([id number]) on 02/21/2019 10:18:43 AM Referred By: Confirmed By:OSMEL EVANS MD
== END 2019-02-18 22:08 | disposition home or self-care (01) ==
LOC: JER 15:13
PROC: 3E0F7GC Introduction of Other Therapeutic Substance into Respiratory Tract, Via Natural or Artificial Opening (ICD-10-PCS; principal; 2019-02-18)
PROC: 3E0F7GC Introduction of Other Therapeutic Substance into Respiratory Tract, Via Natural or Artificial Opening (ICD-10-PCS; 2019-02-18)
PROC: 3E033GC Introduction of Other Therapeutic Substance into Peripheral Vein, Percutaneous Approach (ICD-10-PCS; 2019-02-18)
PROC: 3E0333Z Introduction of Anti-inflammatory into Peripheral Vein, Percutaneous Approach (ICD-10-PCS; 2019-02-18)
PROC: 3E033GC Introduction of Other Therapeutic Substance into Peripheral Vein, Percutaneous Approach (ICD-10-PCS; 2019-02-18)
DX: R51 Headache (principal); I12.9 Hypertensive chronic kidney disease with stage 1 through stage 4 chronic kidney disease, or unspecified chronic kidney disease; E11.22 Type 2 diabetes mellitus with diabetic chronic kidney disease; N18.9 Chronic kidney disease, unspecified; Z79.84 Long term (current) use of oral hypoglycemic drugs; J44.9 Chronic obstructive pulmonary disease, unspecified; K21.9 Gastro-esophageal reflux disease without esophagitis; K86.9 Disease of pancreas, unspecified; G62.9 Polyneuropathy, unspecified; K70.10 Alcoholic hepatitis without ascites; F11.20 Opioid dependence, uncomplicated; F10.20 Alcohol dependence, uncomplicated
CPT/HCPCS: 36415; 70450-TC; 71045-TC-FY; 74176-TC; 80053; 82550; 83690; 84484; 85025; 85610; 93005; 93010; 94640; 96365; 96375; 99283-25; J1100

== ENCOUNTER 2019-05-14 13:31 | Inpatient (IN) | payer OTHER ==
[2019-05-14 17:22] VITALS: BMI 27.1
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
[2019-05-14] MEDS ORDERED: ALBUTEROL SO4 8 GM HFA INHALER IH PRN (18:15)
[2019-05-14] MEDS ORDERED: ALBUTEROL SO4 0.083% IH SOL 2.5 MG/3 ML VIAL.NEB. NEB PRN (19:12)
[2019-05-14] MEDS ORDERED: guaiFENesin 200 MG/10 ML 10 ML UNIT-DOSE CUPS PO PRN (19:27)
[2019-05-14] MEDS ORDERED: MENTHOL/PHENOL 1 EACH UD MM PRN (19:27)
[2019-05-14] MEDS ORDERED: IBUPROFEN 400 MG TABLET (FP) PO PRN (19:27)
[2019-05-14] MEDS ORDERED: ACETAMINOPHEN 325 MG TABLET (FP) PO PRN ×2 (19:27)
[2019-05-14] MEDS ORDERED: MAG HYDROX/AL HYDROX/SIMETH 30 ML UNIT-DOSE CUP PO PRN (19:27)
[2019-05-14] MEDS ORDERED: MAGNESIUM CITRATE 300 ML BOTTLE PO PRN (19:27)
[2019-05-14] MEDS ORDERED: MAGNESIUM HYDROX 2400MG/30ML ORAL SUSPENSION 30 ML CUP PO PRN (19:27)
[2019-05-14] MEDS ORDERED: BISMUTH SUBSALICYLATE 524 MG/30 ML UD PO PRN (19:27)
[2019-05-14] MEDS: ASPIRIN COATED 81 MG TABLET.EC PO SCH (19:49)
[2019-05-14] MEDS: chlordiazePOXIDE HCL 10 MG CAPSULE PO PRN (19:49)
[2019-05-14] MEDS ORDERED: QUEtiapine FUMARATE 200 MG TABLET PO ONE (22:00)
[2019-05-14] MEDS: ATORVASTATIN CA 20 MG TABLET (FP) PO SCH (22:49)
[2019-05-14] MEDS: THIAMINE HCL 100 MG TABLET (FP) PO SCH (22:49)
[2019-05-14] MEDS: INSULIN (LEVEMIR) 100 UNITS/ML UNITS SQ SCH (22:50)
[2019-05-14] MEDS: FAMOTIDINE 20 MG TABLET PO SCH (22:50)
[2019-05-14] MEDS: chlordiazePOXIDE HCL 25 MG CAPSULE PO SCH (22:50)
[2019-05-14] MEDS: INSULIN SLIDING SCALE (NOVOLOG) 1 VIAL SQ SCH (22:54)
[2019-05-14] MEDS: BUDESONIDE/FORMETEROL FUMARATE 80/4.5 mcg INHALER IH SCH (22:55)
[2019-05-14] MEDS: TOPIRAMATE 25 MG TABLET (FP) PO SCH (22:58)
[2019-05-15] MEDS: LISINOPRIL 20 MG TABLET (FP) PO SCH (05:58)
[2019-05-15] MEDS: chlordiazePOXIDE HCL 25 MG CAPSULE PO SCH ×3 (05:59→22:12)
[2019-05-15] MEDS: INSULIN SLIDING SCALE (NOVOLOG) 1 VIAL SQ SCH ×4 (07:42→22:36)
[2019-05-15] MEDS: LIPASE/PROTEASE/AMYLASE 6,000 UNIT CAPSULE PO SCH ×2 (07:46→18:22)
[2019-05-15] MEDS: glipiZIDE 5 MG TABLET (FP) PO SCH (07:48)
[2019-05-15] MEDS: ASPIRIN COATED 81 MG TABLET.EC PO SCH (09:43)
[2019-05-15] MEDS: TAMSULOSIN HCL 0.4 MG CAP PO SCH (09:44)
[2019-05-15] MEDS: FERROUS SO4 325 MG TABLET (FP) PO SCH (09:44)
[2019-05-15] MEDS: NIFEdipine E.R. 30 MG TABLET PO SCH (09:44)
[2019-05-15] MEDS: FAMOTIDINE 20 MG TABLET PO SCH ×2 (09:45→22:12)
[2019-05-15] MEDS: BUDESONIDE/FORMETEROL FUMARATE 80/4.5 mcg INHALER IH SCH ×2 (09:48→22:38)
[2019-05-15] MEDS: TOPIRAMATE 25 MG TABLET (FP) PO SCH ×2 (09:49→22:38)
[2019-05-15] MEDS: PRENATAL VITAMINS W/ FOLIC ACID TABLET (FP) PO SCH (09:49)
[2019-05-15] MEDS ORDERED: METHADONE HCL 40 MG DISPERSABLE TABLET PO ONE (10:00)
[2019-05-15] MEDS ORDERED: NICOTINE POLACRILEX 2 MG GUM BUC PRN (10:53)
[2019-05-15] MEDS ORDERED: METHOCARBAMOL 500 MG TABLET PO ONE (10:56)
[2019-05-15] MEDS ORDERED: NICOTINE 14 MG/24 HOURS TOPICAL PATCH TD SCH (11:00)
[2019-05-15] MEDS ORDERED: chlordiazePOXIDE HCL 25 MG CAPSULE PO ONE (11:43)
[2019-05-15 12:14] LABS: HEMATOCRIT 34.2 % (35.4-49); HEMOGLOBIN 11.4 GM/dL (11.7-16.9); MCH 32.3 pg (25.7-33.7); MCHC 33.4 g/dl (32.0-35.9); MEAN CELL VOLUME 96.5 fl (80-96); MEAN PLT VOLUME 8.9 fl (7.5-11.1); PLATELET COUNT 269 K/MM3 (134-434); RBC 3.54 M/mm3 (4.00-5.60); RDW 14.9 % (11.9-15.9); WHITE BLOOD COUNT 5.1 K/mm3 (4.0-10.0)
[2019-05-15 12:16] LABS: ALBUMIN 4.1 g/dl (3.4-5.0); BILIRUBIN,TOTAL 0.6 mg/dL (0.2-1); BLOOD UREA NITROGEN 40.5 mg/dL (7-18); CREATININE 1.9 mg/dL (0.55-1.3); POTASSIUM 4.1 mmol/L (3.5-5.1); TOT PROT 7.8 g/dl (6.4-8.2)
--- NOTE | 2019-05-15 14:40 | PN ---
S CIWA - CIWA Score Nausea/Vomitin-Mild Nausea/No Vomiting Muscle Tremors: 4-Moderate,w/Arms Extend Anxiety: 4-Mod. Anxious/Guarded Agitation: 3 Paroxysmal Sweats: 2 Orientation: 0-Oriented Tacttile Disturbances: 0-None Auditory Disturbances: 0-None Visual Disturbances: 1-Very Mild Sensitivity Headache: 1-Very Mild CIWA-Ar Total Score: 16 [facility] Progress Note (SOAP) Subjective: 53 years old male admitted on 05/13/19 for alcohol and benzo withdrawal sx management treating with librium detox regiment feeling better today requests methadone 80 po daily bottle verification as name dosage and date of dispersion methadone 80 mg po one dose now Objective: 05/15/19 14:40 alcohol and benzo withdrawal Assessment: 05/15/19 14:45 alcohol and benzo withdrawal Plan: librium regiment
--- NOTE | 2019-05-15 14:55 | EKG ---
Test Reason : Blood Pressure : / mmHG Vent. Rate : 097 BPM Atrial Rate : 097 BPM P-R Int : 166 ms QRS Dur : 072 ms QT Int : 368 ms P-R-T Axes : 006 032 044 degrees QTc Int : 467 ms NORMAL SINUS RHYTHM LEFT VENTRICULAR HYPERTROPHY NONSPECIFIC T WAVE ABNORMALITY PROLONGED QT ABNORMAL ECG Confirmed by MD MACKENZIE, IGLESIA ([id number]) on 05/15/2019 2:55:10 PM Referred By: Braden Fernandez Confirmed By:IGLESIA MANN MD
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
[2019-05-15] MEDS: QUEtiapine FUMARATE 200 MG TABLET PO SCH (22:12)
[2019-05-15] MEDS: THIAMINE HCL 100 MG TABLET (FP) PO SCH (22:13)
[2019-05-15] MEDS: MELATONIN 5 MG TABLETS PO PRN (22:14)
[2019-05-15] MEDS: INSULIN (LEVEMIR) 100 UNITS/ML UNITS SQ SCH (22:36)
[2019-05-15] MEDS: ATORVASTATIN CA 20 MG TABLET (FP) PO SCH (22:37)
[2019-05-15] MEDS ORDERED: INSULIN SLIDING SCALE (NOVOLOG) 1 VIAL SQ ONE (22:39)
[2019-05-16] MEDS: chlordiazePOXIDE 5 MG CAPSULE PO SCH ×3 (05:43→22:22)
[2019-05-16] MEDS: LISINOPRIL 20 MG TABLET (FP) PO SCH (05:47)
[2019-05-16] MEDS: LIPASE/PROTEASE/AMYLASE 6,000 UNIT CAPSULE PO SCH ×2 (06:57→16:48)
[2019-05-16] MEDS: glipiZIDE 5 MG TABLET (FP) PO SCH (06:58)
[2019-05-16] MEDS: INSULIN SLIDING SCALE (NOVOLOG) 1 VIAL SQ SCH ×4 (07:00→22:27)
[2019-05-16] MEDS: METHADONE HCL 40 MG DISPERSABLE TABLET PO SCH (09:29)
[2019-05-16] MEDS: TAMSULOSIN HCL 0.4 MG CAP PO SCH (09:42)
[2019-05-16] MEDS: FERROUS SO4 325 MG TABLET (FP) PO SCH (10:36)
[2019-05-16] MEDS: PRENATAL VITAMINS W/ FOLIC ACID TABLET (FP) PO SCH (10:36)
[2019-05-16] MEDS: ASPIRIN COATED 81 MG TABLET.EC PO SCH (10:36)
[2019-05-16] MEDS: NIFEdipine E.R. 30 MG TABLET PO SCH (10:36)
[2019-05-16] MEDS: BUDESONIDE/FORMETEROL FUMARATE 80/4.5 mcg INHALER IH SCH ×2 (10:37→22:28)
[2019-05-16] MEDS: TOPIRAMATE 25 MG TABLET (FP) PO SCH ×2 (10:37→22:23)
[2019-05-16] MEDS: NICOTINE 21 MG/24 HOURS TOPICAL PATCH TD SCH (10:38)
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
[2019-05-16] MEDS: FAMOTIDINE 20 MG TABLET PO SCH ×2 (14:20→22:22)
[2019-05-16] MEDS: chlordiazePOXIDE HCL 10 MG CAPSULE PO PRN (16:54)
[2019-05-16] MEDS: THIAMINE HCL 100 MG TABLET (FP) PO SCH (22:22)
[2019-05-16] MEDS: INSULIN (LEVEMIR) 100 UNITS/ML UNITS SQ SCH (22:23)
[2019-05-16] MEDS: QUEtiapine FUMARATE 200 MG TABLET PO SCH (22:23)
[2019-05-16] MEDS: MELATONIN 5 MG TABLETS PO PRN (22:23)
[2019-05-16] MEDS: ATORVASTATIN CA 20 MG TABLET (FP) PO SCH (22:23)
[2019-05-17] MEDS ORDERED: chlordiazePOXIDE HCL 10 MG CAPSULE PO PRN
[2019-05-17] MEDS ORDERED: INSULIN SLIDING SCALE (NOVOLOG) 1 VIAL SQ ONE (05:31)
[2019-05-17] MEDS: METHADONE HCL 40 MG DISPERSABLE TABLET PO SCH (05:35)
[2019-05-17] MEDS: chlordiazePOXIDE HCL 10 MG CAPSULE PO SCH ×3 (05:35→21:28)
[2019-05-17] MEDS: LISINOPRIL 20 MG TABLET (FP) PO SCH (05:37)
[2019-05-17] MEDS: glipiZIDE 5 MG TABLET (FP) PO SCH (06:34)
[2019-05-17] MEDS: INSULIN SLIDING SCALE (NOVOLOG) 1 VIAL SQ SCH ×4 (06:36→21:51)
[2019-05-17] MEDS: LIPASE/PROTEASE/AMYLASE 6,000 UNIT CAPSULE PO SCH ×2 (06:37→17:00)
[2019-05-17] MEDS: FERROUS SO4 325 MG TABLET (FP) PO SCH (10:12)
[2019-05-17] MEDS: ASPIRIN COATED 81 MG TABLET.EC PO SCH (10:12)
[2019-05-17] MEDS: PRENATAL VITAMINS W/ FOLIC ACID TABLET (FP) PO SCH (10:12)
[2019-05-17] MEDS: TAMSULOSIN HCL 0.4 MG CAP PO SCH (10:12)
[2019-05-17] MEDS: TOPIRAMATE 25 MG TABLET (FP) PO SCH ×2 (10:13→21:31)
[2019-05-17] MEDS: NICOTINE 21 MG/24 HOURS TOPICAL PATCH TD SCH (10:13)
[2019-05-17] MEDS: BUDESONIDE/FORMETEROL FUMARATE 80/4.5 mcg INHALER IH SCH ×2 (10:13→21:29)
[2019-05-17] MEDS: FAMOTIDINE 20 MG TABLET PO SCH ×2 (10:14→21:28)
[2019-05-17] MEDS: NIFEdipine E.R. 30 MG TABLET PO SCH (10:18)
--- NOTE | 2019-05-17 10:29 | PN ---
S CIWA - CIWA Score Nausea/Vomitin-No Nausea/No Vomiting Muscle Tremors: 1-None Visible, but [place] Anxiety: 3 Agitation: 1-Slight > Activity Paroxysmal Sweats: 1-Minimal Palms Moist Orientation: 0-Oriented Tacttile Disturbances: 0-None Auditory Disturbances: 0-None Visual Disturbances: 0-None Headache: 0-None Present CIWA-Ar Total Score: 6 [facility] Progress Note (SOAP) Subjective: 53 years old male admitted on 05/14/19 for alcohol and benzo withdrawal sx management treating with librium detox regiment feeling better today slept through the night less tremor received methaodne 80mg today patient presents fluctuated bgm "had juice" patient demands the frequency of glucerna discussed bmi 27 related hypertension and diabetes Objective: 05/17/19 10:35 Vital Signs Temperature 97.9 F 05/17/19 08:51 Pulse Rate 104 H 05/17/19 08:51 Respiratory Rate 20 05/17/19 08:51 Blood Pressure 98/71 05/17/19 08:51 O2 Sat by Pulse Oximetry (%) Laboratory Last Values WBC 5.1 K/mm3 (4.0-10.0) 05/15/19 07:20 RBC 3.54 M/mm3 (4.00-5.60) L 05/15/19 07:20 Hgb 11.4 GM/dL (11.7-16.9) L 05/15/19 07:20 Hct 34.2 % (35.4-49) L 05/15/19 07:20 MCV 96.5 fl (80-96) H 05/15/19 07:20 MCH 32.3 pg (25.7-33.7) 05/15/19 07:20 MCHC 33.4 g/dl (32.0-35.9) 05/15/19 07:20 RDW 14.9 % (11.9-15.9) 05/15/19 07:20 Plt Count 269 K/MM3 (134-434) 05/15/19 07:20 MPV 8.9 fl (7.5-11.1) 05/15/19 07:20 Sodium 143 mmol/L (136-145) 05/15/19 07:20 Potassium 4.1 mmol/L (3.5-5.1) 05/15/19 07:20 Chloride 109 mmol/L (98-107) H 05/15/19 07:20 Carbon Dioxide 26 mmol/L (21-32) 05/15/19 07:20 Anion Gap 7 MMOL/L (8-16) L 05/15/19 07:20 BUN 40.5 mg/dL (7-18) H 05/15/19 07:20 Creatinine 1.9 mg/dL (0.55-1.3) H 05/15/19 07:20 Est GFR (CKD-EPI)AfAm 45.00 05/15/19 07:20 Est GFR (CKD-EPI)NonAf 38.82 05/15/19 07:20 POC Glucometer 516 UNITS (80-120) 05/17/19 05:30 Random Glucose 82 mg/dL (74-106) 05/15/19 07:20 Calcium 9.0 mg/dL (8.5-10.1) 05/15/19 07:20 Total Bilirubin 0.6 mg/dL (0.2-1) 05/15/19 07:20 AST 83 U/L (15-37) H 05/15/19 07:20 ALT 123 U/L (13-61) H 05/15/19 07:20 Alkaline Phosphatase 189 U/L (45-117) H 05/15/19 07:20 Total Protein 7.8 g/dl (6.4-8.2) 05/15/19 07:20 Albumin 4.1 g/dl (3.4-5.0) 05/15/19 07:20 RPR Titer Nonreactive (NONREACTIVE) 05/15/19 07:20 lab noted machine sign writer called [phone] for bun repeat 05/17/19 10:41 Assessment: 05/17/19 10:42 alcohol and benzo withdrawal Plan: librium regiment
[2019-05-17] MEDS: INSULIN (LEVEMIR) 100 UNITS/ML UNITS SQ SCH (21:26)
[2019-05-17] MEDS: THIAMINE HCL 100 MG TABLET (FP) PO SCH (21:27)
[2019-05-17] MEDS: ATORVASTATIN CA 20 MG TABLET (FP) PO SCH (21:28)
[2019-05-17] MEDS: QUEtiapine FUMARATE 200 MG TABLET PO SCH (21:28)
[2019-05-17] MEDS: MELATONIN 5 MG TABLETS PO PRN (21:32)
[2019-05-18] MEDS ORDERED: chlordiazePOXIDE HCL 10 MG CAPSULE PO ONE (05:00)
[2019-05-18] MEDS: LISINOPRIL 20 MG TABLET (FP) PO SCH (05:44)
[2019-05-18] MEDS: METHADONE HCL 40 MG DISPERSABLE TABLET PO SCH (05:44)
[2019-05-18] MEDS ORDERED: LOPERAMIDE HCL 2 MG CAPSULE PO PRN (06:00)
[2019-05-18] MEDS: glipiZIDE 5 MG TABLET (FP) PO SCH (07:15)
[2019-05-18] MEDS: LIPASE/PROTEASE/AMYLASE 6,000 UNIT CAPSULE PO SCH ×2 (07:15→17:47)
[2019-05-18] MEDS: INSULIN SLIDING SCALE (NOVOLOG) 1 VIAL SQ SCH ×3 (07:15→17:47)
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
[2019-05-18] MEDS: PRENATAL VITAMINS W/ FOLIC ACID TABLET (FP) PO SCH (10:33)
[2019-05-18] MEDS: BUDESONIDE/FORMETEROL FUMARATE 80/4.5 mcg INHALER IH SCH (10:33)
[2019-05-18] MEDS: ASPIRIN COATED 81 MG TABLET.EC PO SCH (10:33)
[2019-05-18] MEDS: TAMSULOSIN HCL 0.4 MG CAP PO SCH (10:33)
[2019-05-18] MEDS: FERROUS SO4 325 MG TABLET (FP) PO SCH (10:33)
[2019-05-18] MEDS: TOPIRAMATE 25 MG TABLET (FP) PO SCH (10:33)
[2019-05-18] MEDS: FAMOTIDINE 20 MG TABLET PO SCH (10:33)
[2019-05-18] MEDS: NICOTINE 21 MG/24 HOURS TOPICAL PATCH TD SCH (10:34)
[2019-05-18] MEDS ORDERED: LOPERAMIDE HCL 2 MG CAPSULE PO ONE (10:35)
[2019-05-18] MEDS: NIFEdipine E.R. 30 MG TABLET PO SCH (10:42)
[2019-05-18 13:27] VITALS: PULSE 90
[2019-05-18 17:28] VITALS: BP 117/78; TEMP 99.1
== END 2019-05-18 20:05 | disposition other institution (70) | DRG 773 ==
LOC: YASAS 13:31 → Y3N 18:42
PROVIDERS: ADMIT Allergy & Immunology; ATTEND Allergy & Immunology
PROC: HZ2ZZZZ Detoxification Services for Substance Abuse Treatment (ICD-10-PCS; principal; 2019-05-14)
DX: F10.230 Alcohol dependence with withdrawal, uncomplicated (principal); F11.20 Opioid dependence, uncomplicated; F17.213 Nicotine dependence, cigarettes, with withdrawal; F39 Unspecified mood [affective] disorder; I10 Essential (primary) hypertension; E78.5 Hyperlipidemia, unspecified; R94.31 Abnormal electrocardiogram [ECG] [EKG]; N40.0 Benign prostatic hyperplasia without lower urinary tract symptoms; J45.22 Mild intermittent asthma with status asthmaticus; D64.9 Anemia, unspecified; J43.0 Unilateral pulmonary emphysema [MacLeod's syndrome]; E11.65 Type 2 diabetes mellitus with hyperglycemia; K21.9 Gastro-esophageal reflux disease without esophagitis; E11.42 Type 2 diabetes mellitus with diabetic polyneuropathy; Z79.4 Long term (current) use of insulin; N28.9 Disorder of kidney and ureter, unspecified; R00.0 Tachycardia, unspecified; Z91.14 Patient's other noncompliance with medication regimen
CPT/HCPCS: 36415; 80053; 82962; 84520; 85027; 86593; 93005; 93010

== ENCOUNTER 2019-05-18 20:57 | Inpatient (IN) | payer OTHER ==
--- NOTE | 2019-05-18 13:33 | HP ---
[facility] Rehab Assess/Revision - Admission History Ad[facility] to [facility]hab [facility] - Findings Detox History & Physical reviewed: Yes Concur with findings: Yes Comments/Additional Findings: transferred from detox to rehab admission as per protoocl Inpatient Rehab Admission - Rehab Decision to Admit Inpatient rehab admission?: Yes - Initial Determination Are CD services needed?: Yes Free of communicable disease: Yes Not in need of hospitalization: Yes - Rehab Admission Criteria Previous failed treatment: Yes Poor recovery environment: Yes Comorbidities: Yes Lacks judgement: Yes Patient is meeting Inpatient Rehab admission criteria:: Yes
[~2019-05-18 20:57] MED LIST changes: +ACETAMINOPHEN 325 MG TABLET (FP) PO PRN; +ALBUTEROL SO4 HFA INHALER IH PRN; +IBUPROFEN 400 MG TABLET (FP) PO PRN; -LOPERAMIDE HCL 2 MG CAPSULE PO PRN; -NICOTINE POLACRILEX 4 MG GUM BUC PRN; -hydrOXYzine PAMOATE 50 MG CAPSULE (FP) PO PRN
[2019-05-18] MEDS: ATORVASTATIN CA 20 MG TABLET (FP) PO SCH (21:50)
[2019-05-18] MEDS: QUEtiapine FUMARATE 200 MG TABLET PO SCH (21:50)
[2019-05-18] MEDS: TOPIRAMATE 25 MG TABLET (FP) PO SCH (21:50)
[2019-05-18] MEDS: MELATONIN 5 MG TABLETS PO PRN (21:50)
[2019-05-18] MEDS: THIAMINE HCL 100 MG TABLET (FP) PO SCH (21:50)
[2019-05-18] MEDS: FAMOTIDINE 20 MG TABLET PO SCH (21:50)
[2019-05-18] MEDS: INSULIN SLIDING SCALE (NOVOLOG) 1 VIAL SQ SCH ×2 (21:56→21:59)
[2019-05-18] MEDS ORDERED: INSULIN (NOVOLOG) ASPART 100 UNITS/ML 10ML VIAL ONE (21:57)
[2019-05-18] MEDS: BUDESONIDE/FORMETEROL FUMARATE 80/4.5 mcg INHALER IH SCH (21:58)
[2019-05-19] MEDS: LOPERAMIDE HCL 2 MG CAPSULE PO PRN ×3 (03:27→17:04)
[2019-05-19] MEDS: METHADONE HCL 40 MG DISPERSABLE TABLET PO SCH (06:28)
[2019-05-19] MEDS ORDERED: INSULIN (NOVOLOG) ASPART 100 UNITS/ML 10ML VIAL ONE ×3 (06:36→22:53)
[2019-05-19] MEDS: glipiZIDE 5 MG TABLET (FP) PO SCH (07:03)
[2019-05-19] MEDS: INSULIN SLIDING SCALE (NOVOLOG) 1 VIAL SQ SCH ×4 (07:03→22:48)
[2019-05-19] MEDS: TAMSULOSIN HCL 0.4 MG CAP PO SCH (08:29)
[2019-05-19] MEDS: NICOTINE 21 MG/24 HOURS TOPICAL PATCH TD SCH (10:29)
[2019-05-19] MEDS: PRENATAL VITAMINS W/ FOLIC ACID TABLET (FP) PO SCH (10:29)
[2019-05-19] MEDS: ASPIRIN COATED 81 MG TABLET.EC PO SCH (10:29)
[2019-05-19] MEDS: LISINOPRIL 20 MG TABLET (FP) PO SCH (10:29)
[2019-05-19] MEDS: FERROUS SO4 325 MG TABLET (FP) PO SCH (10:30)
[2019-05-19] MEDS: FAMOTIDINE 20 MG TABLET PO SCH ×2 (10:30→21:32)
[2019-05-19] MEDS: NIFEdipine E.R. 30 MG TABLET PO SCH (10:30)
[2019-05-19] MEDS: BUDESONIDE/FORMETEROL FUMARATE 80/4.5 mcg INHALER IH SCH ×2 (10:30→21:32)
[2019-05-19] MEDS: LIPASE/PROTEASE/AMYLASE 6,000 UNIT CAPSULE PO SCH ×2 (10:33→17:02)
[2019-05-19] MEDS: TOPIRAMATE 25 MG TABLET (FP) PO SCH ×2 (10:35→21:33)
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
[2019-05-19] MEDS ORDERED: PT OWN MED DRAWER 7, Y5N ONE (16:39)
[2019-05-19] MEDS: QUEtiapine FUMARATE 200 MG TABLET PO SCH (21:32)
[2019-05-19] MEDS: ATORVASTATIN CA 20 MG TABLET (FP) PO SCH (21:32)
[2019-05-19] MEDS: THIAMINE HCL 100 MG TABLET (FP) PO SCH (21:33)
[2019-05-19] MEDS: INSULIN (LEVEMIR) 100 UNITS/ML UNITS SQ SCH (22:49)
[2019-05-19] MEDS: MELATONIN 5 MG TABLETS PO PRN (22:50)
[2019-05-20] MEDS: LOPERAMIDE HCL 2 MG CAPSULE PO PRN ×2 (06:14→16:32)
[2019-05-20] MEDS: METHADONE HCL 40 MG DISPERSABLE TABLET PO SCH (06:15)
[2019-05-20] MEDS: glipiZIDE 5 MG TABLET (FP) PO SCH (07:32)
[2019-05-20] MEDS: TAMSULOSIN HCL 0.4 MG CAP PO SCH (07:34)
[2019-05-20] MEDS: LIPASE/PROTEASE/AMYLASE 6,000 UNIT CAPSULE PO SCH ×2 (07:34→16:30)
[2019-05-20] MEDS: INSULIN SLIDING SCALE (NOVOLOG) 1 VIAL SQ SCH ×4 (07:34→21:53)
[2019-05-20] MEDS ORDERED: INSULIN (NOVOLOG) ASPART 100 UNITS/ML 10ML VIAL ONE ×3 (07:35→21:58)
[2019-05-20] MEDS ORDERED: PT OWN MED DRAWER 7, Y5N ONE (08:56)
[2019-05-20] MEDS ORDERED: DIPHENOXYLATE 2.5/ATROPINE.025 1 COMBO TABLET PO ONE (09:22)
[2019-05-20] MEDS ORDERED: ONDANSETRON *ODT* 4 MG TABLET SL PRN (09:23)
--- NOTE | 2019-05-20 09:55 | PN ---
[facility] Progress Note Note: PATIENT EVALUATED FOR C/O NAUSEA, VOMITING, PERSISTENT DIARRHEA AND ABDOMINAL DISCOMFORT RADIATING TO CHEST AREA. PATIENT STATES HE HAS HAD ABDOMINAL DISCOMFORT SINCE YESTERDAY AFTERNOON. GIVEN IMMODIUM WITH NO RELIEF, VOMITED X 1 BUT DID NOT SHOW RN CONTENTS, STATES ABD DISCOMFORT IN "AROUND MY BELLY BUTTON AREA" AND TRAVELS TO THE LEFT TO MID AREA OF MY CHEST. HE DENIES SOB, IN NO ACUTE DISTRESS AT THIS TIME. PMH INCLUDES ETOH DEPENDENCE, DM, PANCREATITIS, MMTP AND HTN. Vital Signs Temperature 98.2 F 05/20/19 07:08 Pulse Rate 103 H 05/20/19 09:16 Respiratory Rate 18 05/20/19 09:16 Blood Pressure 125/80 05/20/19 09:16 O2 Sat by Pulse Oximetry (%) PE ALERT AND ORIENTED X 3 SKIN WARM, MILD MOISTURE TO FOREHEAD CAR S1, S2, HR 95 RESP CTA BL, NO WHEEZES OR RALES, O2 SAT 96% GI MILDLY TENDER AT UMBILICAL AREA, BS+, ND EXT FULL ROM, AMB AD VENUS NO TREMORS A/P N/V/D COULD BE PROTRACTED W/D FROM ETOH CHEST DISCOMFORT WILL ORDER ONE DOSE OF LOMOTIL ZOFRAN PRN ORAL HYDRATION/GINGERALE SARAH EKG NOW MONITOR CLINICALLY-NO IMPROVEMENT- CONSIDER TRANSFER TO ED
[2019-05-20] MEDS: TOPIRAMATE 25 MG TABLET (FP) PO SCH ×2 (10:00→21:03)
[2019-05-20] MEDS: FERROUS SO4 325 MG TABLET (FP) PO SCH (10:01)
[2019-05-20] MEDS: LISINOPRIL 20 MG TABLET (FP) PO SCH (10:01)
[2019-05-20] MEDS: ASPIRIN COATED 81 MG TABLET.EC PO SCH (10:01)
[2019-05-20] MEDS: NICOTINE 21 MG/24 HOURS TOPICAL PATCH TD SCH (10:01)
[2019-05-20] MEDS: FAMOTIDINE 20 MG TABLET PO SCH ×2 (10:01→21:03)
[2019-05-20] MEDS: NIFEdipine E.R. 30 MG TABLET PO SCH (10:01)
[2019-05-20] MEDS: PRENATAL VITAMINS W/ FOLIC ACID TABLET (FP) PO SCH (10:01)
[2019-05-20] MEDS: BUDESONIDE/FORMETEROL FUMARATE 80/4.5 mcg INHALER IH SCH ×2 (10:05→21:04)
--- NOTE | 2019-05-20 13:07 | PN ---
[facility] Progress Note Note: EKG reviewed, NSR with T wave changes. Patient evaluated at bedside with Fabricio Garcia present. Patient states " I feel better, I have not had diarrhea. No compliants of chest pain or SOB. Patient does report bad appetite. Vital Signs Temperature 98.2 F 05/20/19 07:08 Pulse Rate 103 H 05/20/19 09:16 Respiratory Rate 18 05/20/19 09:16 Blood Pressure 125/80 05/20/19 09:16 O2 Sat by Pulse Oximetry (%) PE: alert and oriented x 3 resting in bed car s1s2, RRR resp cta bl gi soft, bs+, nt ext no tremors A/P N/V/D subsided with treatment chest discomfort improved-EKG NSR will continue to monitor clinically oral fluids as tolerated if poor appetite continues- consider periactin
--- NOTE | 2019-05-20 16:58 | PN ---
Psychiatric Progress Note Vital Signs: Vital Signs Period Temp Pulse Resp BP Sys/Lopez Pulse Ox Last 24 Hr 98.2 F 98-103 18-20 101-125/64-80 Date of Session: 05/20/19 Chief Complaint:: " I'm not sleeping." HPI: Patient admitted to [facility] for alcohol dependence. Consultation ordered for insomnia. ROS: Patient is calm, cooperative, alert +oriented X3. Current Medications: Active Medications Generic Name Dose Route Start Last Admin Trade Name Freq PRN Reason Stop Dose Admin Acetaminophen 650 mg 05/18/19 13:33 Tylenol - PO Q4H PRN FEVER Al Hydroxide/Mg Hydroxide 30 ml 05/18/19 13:33 Mylanta Oral Suspension - PO Q6H PRN DYSPEPSIA Albuterol Sulfate 2 puff 05/18/19 13:36 Ventolin Hfa Inhaler - IH Q4H PRN SHORT OF BREATH/WHEEZING Aspirin 81 mg 05/19/19 10:00 05/20/19 10:01 Ecotrin - PO 81 mg DAILY REBECCA Administration Atorvastatin Calcium 20 mg 05/18/19 22:00 05/19/19 21:32 Lipitor - PO 20 mg HS REBECCA Administration Budesonide/Formoterol Fumarate 2 puff 05/18/19 22:00 05/20/19 10:05 Symbicort 80/4.5mcg - IH 2 applic BID REBECCA Administration Eucalyptus/Menthol/Phenol/Sorbitol 1 each 05/18/19 13:33 Cepastat Lozenge - MM Q4H PRN SORE THROAT Famotidine 20 mg 05/18/19 22:00 05/20/19 10:01 Pepcid - PO 20 mg BID REBECCA Administration Ferrous Sulfate 325 mg 05/19/19 10:00 05/20/19 10:01 Feosol - PO 325 mg DAILY REBECCA Administration Glipizide 5 mg 05/19/19 07:00 05/20/19 07:32 Glucotrol - PO 5 mg ACBK REBECCA Administration Guaifenesin 10 ml 05/18/19 13:33 Robitussin - PO Q6H PRN COUGH Insulin Aspart 1 vial 05/19/19 08:59 05/20/19 16:30 Novolog Vial Sliding Scale - SQ 2 units ACHS REBECCA Administration Protocol Insulin Detemir 15 units 05/19/19 22:00 05/19/19 22:49 Levemir Vial SQ 15 units HS REBECCA Administration Lisinopril 40 mg 05/19/19 10:00 05/20/19 10:01 Prinivil PO 40 mg DAILY REBECCA Administration Loperamide HCl 4 mg 05/18/19 13:33 05/20/19 16:32 Imodium - PO 4 mg Q6H PRN Administration DIARRHEA Magnesium Citrate 300 ml 05/18/19 13:33 Citroma - PO Q48H PRN CONSTIPATION Magnesium Hydroxide 30 ml 05/18/19 13:33 Milk Of Magnesia - PO DAILY PRN CONSTIPATION Melatonin 5 mg 05/18/19 22:00 05/19/19 22:50 Melatonin PO 5 mg HS PRN Administration INSOMNIA Methadone HCl 80 mg 05/19/19 06:00 05/20/19 06:15 Dolophine - PO 80 mg DAILY@0600 [facility] Administration Nicotine 21 mg 05/19/19 10:00 05/20/19 10:01 Nicoderm Patch - TD 21 mg DAILY REBECCA Administration Nicotine Polacrilex 4 mg 05/18/19 13:54 Nicorette Gum - BUC Q2H PRN NICOTINE REPLACEMENT RX Nifedipine 30 mg 05/19/19 10:00 05/20/19 10:01 Procardia Xl - PO 30 mg DAILY REBECCA Administration Ondansetron HCl 4 mg 05/20/19 09:23 05/20/19 10:06 Zofran Odt - SL 4 mg Q6H PRN Administration NAUSEA AND/OR VOMITING Pancrelipase 4 cap 05/19/19 09:15 05/20/19 16:[address] 6,000 Units Capsule PO 4 cap BIDWM REBECCA Administration Multivit/Folic Acid/Iron 1 tab 05/19/19 10:00 05/20/19 10:01 Vitamins (Sjr) - PO 1 tab DAILY [facility] Administration Pseudoephedrine/Triprolidine 1 combo 05/18/19 13:33 Actifed - PO TID PRN NASAL CONGESTION Quetiapine Fumarate 200 mg 05/18/19 22:00 05/19/19 21:32 Seroquel - PO 200 mg HS REBECCA Administration Tamsulosin HCl 0.4 mg 05/19/19 08:30 05/20/19 07:34 Flomax - PO 0.4 mg DAILY@0830 [facility] Administration Thiamine HCl 100 mg 05/18/19 22:00 05/19/19 21:33 Vitamin B1 - PO 100 mg HS REBECCA Administration Topiramate 25 mg 05/18/19 22:00 05/20/19 10:00 Topamax - PO 25 mg BID REBECCA Administration Medication(s) Change(s): Yes. Will add Belsomra 10mg HS PRN. Current Side Effect: No Lab tests ordered: No Lab tests reviewed: Yes Provider note:: Patient report difficulty sleeping despite accepting seroquel 200mg HS. Will order Belsomra 10mg HS PRN. Patient educated on the importance of proper sleep hygiene. Benefits and side effects discussed. Verbal consent given. Total face to face time:: 20 Mental Status Exam - Mental Status Exam Alert and Oriented to: Time, Place, Person Cognitive Function: Good Patient Appearance: Well Groomed Mood: Withdrawn Affect: Appropriate Patient Behavior: Appropriate, Cooperative Speech Pattern: Appropriate Voice Loudness: Normal Thought Process: Intact, Goal Oriented Thought Disorder: Not Present Hallucinations: Denies Suicidal Ideation: Denies Homicidal Ideation: Denies Insight/Judgement: Poor Sleep: Poorly Appetite: Fair Muscle strength/Tone: Normal Gait/Station: Normal Psychiatric Treatment Plan - Problem List (1) Alcohol use disorder Current Visit: Yes (2) Mood disorder Current Visit: Yes (3) Opioid dependence on agonist therapy Current Visit: Yes (4) Nicotine dependence Current Visit: No Qualifiers: Nicotine product type: cigarettes Substance use status: in withdrawal Qualified Code(s): F17.213 - Nicotine dependence, cigarettes, with withdrawal Comment: . (5) Insomnia Current Visit: Yes
[2019-05-20] MEDS: QUEtiapine FUMARATE 200 MG TABLET PO SCH (21:02)
[2019-05-20] MEDS: ATORVASTATIN CA 20 MG TABLET (FP) PO SCH (21:03)
[2019-05-20] MEDS: MELATONIN 5 MG TABLETS PO PRN (21:03)
[2019-05-20] MEDS: THIAMINE HCL 100 MG TABLET (FP) PO SCH (21:03)
[2019-05-20] MEDS: INSULIN (LEVEMIR) 100 UNITS/ML UNITS SQ SCH (21:54)
[2019-05-20] MEDS ORDERED: INSULIN (LEVEMIR) 100 UNITS/ML UNITS SQ ONE (21:58)
[2019-05-21] MEDS: glipiZIDE 5 MG TABLET (FP) PO SCH (06:26)
[2019-05-21] MEDS: METHADONE HCL 40 MG DISPERSABLE TABLET PO SCH (06:26)
[2019-05-21] MEDS: LOPERAMIDE HCL 2 MG CAPSULE PO PRN ×3 (06:26→21:51)
[2019-05-21] MEDS: INSULIN SLIDING SCALE (NOVOLOG) 1 VIAL SQ SCH ×4 (06:29→21:45)
[2019-05-21] MEDS: TAMSULOSIN HCL 0.4 MG CAP PO SCH (07:30)
[2019-05-21] MEDS: MAG HYDROX/AL HYDROX/SIMETH 30 ML UNIT-DOSE CUP PO PRN ×2 (08:03→16:45)
[2019-05-21] MEDS: LIPASE/PROTEASE/AMYLASE 6,000 UNIT CAPSULE PO SCH ×2 (08:58→17:25)
[2019-05-21] MEDS: FAMOTIDINE 20 MG TABLET PO SCH ×2 (10:08→21:47)
[2019-05-21] MEDS: BUDESONIDE/FORMETEROL FUMARATE 80/4.5 mcg INHALER IH SCH ×2 (10:08→21:51)
[2019-05-21] MEDS: PRENATAL VITAMINS W/ FOLIC ACID TABLET (FP) PO SCH (10:08)
[2019-05-21] MEDS: ASPIRIN COATED 81 MG TABLET.EC PO SCH (10:08)
[2019-05-21] MEDS: FERROUS SO4 325 MG TABLET (FP) PO SCH (10:08)
[2019-05-21] MEDS: NICOTINE 21 MG/24 HOURS TOPICAL PATCH TD SCH (10:08)
[2019-05-21] MEDS: TOPIRAMATE 25 MG TABLET (FP) PO SCH ×2 (10:09→21:47)
[2019-05-21] MEDS: NIFEdipine E.R. 30 MG TABLET PO SCH (10:10)
[2019-05-21] MEDS: LISINOPRIL 20 MG TABLET (FP) PO SCH (10:10)
[2019-05-21] MEDS ORDERED: INSULIN (NOVOLOG) ASPART 100 UNITS/ML 10ML VIAL ONE (16:40)
[2019-05-21] MEDS ORDERED: PT OWN MED DRAWER 7, Y5N ONE ×2 (16:44→16:55)
[2019-05-21] MEDS: INSULIN (LEVEMIR) 100 UNITS/ML UNITS SQ SCH (21:46)
[2019-05-21] MEDS: THIAMINE HCL 100 MG TABLET (FP) PO SCH (21:47)
[2019-05-21] MEDS: ATORVASTATIN CA 20 MG TABLET (FP) PO SCH (21:47)
[2019-05-21] MEDS: MELATONIN 5 MG TABLETS PO PRN (21:47)
[2019-05-21] MEDS: QUEtiapine FUMARATE 200 MG TABLET PO SCH (21:47)
[2019-05-21] MEDS: SUVOREXANT 10 MG TABLET PO PRN (21:48)
[2019-05-22] MEDS: glipiZIDE 5 MG TABLET (FP) PO SCH (06:22)
[2019-05-22] MEDS: METHADONE HCL 40 MG DISPERSABLE TABLET PO SCH (06:23)
[2019-05-22] MEDS: LOPERAMIDE HCL 2 MG CAPSULE PO PRN ×2 (06:28→14:41)
[2019-05-22] MEDS: INSULIN SLIDING SCALE (NOVOLOG) 1 VIAL SQ SCH ×4 (08:23→21:44)
[2019-05-22] MEDS ORDERED: BISMUTH SUBSALICYLATE 262 MG/15 ML BTL PO PRN (09:28)
[2019-05-22] MEDS: FAMOTIDINE 20 MG TABLET PO SCH ×2 (09:34→21:44)
[2019-05-22] MEDS: PRENATAL VITAMINS W/ FOLIC ACID TABLET (FP) PO SCH (09:34)
[2019-05-22] MEDS: FERROUS SO4 325 MG TABLET (FP) PO SCH (09:34)
[2019-05-22] MEDS: ASPIRIN COATED 81 MG TABLET.EC PO SCH (09:34)
[2019-05-22] MEDS: TAMSULOSIN HCL 0.4 MG CAP PO SCH (09:35)
[2019-05-22] MEDS: LISINOPRIL 20 MG TABLET (FP) PO SCH (09:38)
[2019-05-22] MEDS: NIFEdipine E.R. 30 MG TABLET PO SCH (09:38)
[2019-05-22] MEDS ORDERED: BISMUTH SUBSALICYLATE 262 MG/15 ML BTL PO SCH (10:00)
[2019-05-22] MEDS: LIPASE/PROTEASE/AMYLASE 6,000 UNIT CAPSULE PO SCH ×2 (10:11→16:52)
[2019-05-22] MEDS: BISMUTH SUBSALICYLATE 524 MG/30 ML UD PO SCH ×2 (10:23→21:45)
[2019-05-22] MEDS: BUDESONIDE/FORMETEROL FUMARATE 80/4.5 mcg INHALER IH SCH ×2 (10:24→21:53)
[2019-05-22] MEDS: NICOTINE 21 MG/24 HOURS TOPICAL PATCH TD SCH (10:24)
[2019-05-22] MEDS: TOPIRAMATE 25 MG TABLET (FP) PO SCH ×2 (10:24→21:45)
[2019-05-22] MEDS ORDERED: INSULIN (NOVOLOG) ASPART 100 UNITS/ML 10ML VIAL ONE (17:01)
[2019-05-22] MEDS: QUEtiapine FUMARATE 200 MG TABLET PO SCH (21:43)
[2019-05-22] MEDS: THIAMINE HCL 100 MG TABLET (FP) PO SCH (21:44)
[2019-05-22] MEDS: MELATONIN 5 MG TABLETS PO PRN (21:44)
[2019-05-22] MEDS: ATORVASTATIN CA 20 MG TABLET (FP) PO SCH (21:44)
[2019-05-22] MEDS: INSULIN (LEVEMIR) 100 UNITS/ML UNITS SQ SCH (21:44)
[2019-05-22] MEDS: SUVOREXANT 10 MG TABLET PO PRN (21:47)
[2019-05-22] MEDS: NICOTINE POLACRILEX 4 MG GUM BUC PRN (21:48)
[2019-05-23] MEDS: glipiZIDE 5 MG TABLET (FP) PO SCH (06:16)
[2019-05-23] MEDS: LOPERAMIDE HCL 2 MG CAPSULE PO PRN (06:17)
[2019-05-23] MEDS: METHADONE HCL 40 MG DISPERSABLE TABLET PO SCH (06:17)
[2019-05-23] MEDS: INSULIN SLIDING SCALE (NOVOLOG) 1 VIAL SQ SCH ×4 (07:03→21:59)
[2019-05-23] MEDS: LIPASE/PROTEASE/AMYLASE 6,000 UNIT CAPSULE PO SCH ×2 (07:29→17:46)
[2019-05-23] MEDS: TAMSULOSIN HCL 0.4 MG CAP PO SCH (07:29)
[2019-05-23] MEDS: TOPIRAMATE 25 MG TABLET (FP) PO SCH ×2 (10:06→22:00)
[2019-05-23] MEDS: NIFEdipine E.R. 30 MG TABLET PO SCH (10:29)
[2019-05-23] MEDS: ASPIRIN COATED 81 MG TABLET.EC PO SCH (10:29)
[2019-05-23] MEDS: FERROUS SO4 325 MG TABLET (FP) PO SCH (10:29)
[2019-05-23] MEDS: PRENATAL VITAMINS W/ FOLIC ACID TABLET (FP) PO SCH (10:29)
[2019-05-23] MEDS: FAMOTIDINE 20 MG TABLET PO SCH ×2 (10:30→21:59)
[2019-05-23] MEDS: BISMUTH SUBSALICYLATE 524 MG/30 ML UD PO SCH ×2 (10:30→21:59)
[2019-05-23] MEDS: LISINOPRIL 20 MG TABLET (FP) PO SCH (10:30)
[2019-05-23] MEDS: NICOTINE 21 MG/24 HOURS TOPICAL PATCH TD SCH (10:30)
[2019-05-23] MEDS: BUDESONIDE/FORMETEROL FUMARATE 80/4.5 mcg INHALER IH SCH ×2 (10:33→22:00)
[2019-05-23] MEDS: NICOTINE POLACRILEX 4 MG GUM BUC PRN (10:34)
[2019-05-23 13:53] LABS: BLOOD UREA NITROGEN 57.1 mg/dL (7-18); CALCIUM 8.8 mg/dL (8.5-10.1); CREATININE 4.2 mg/dL (0.55-1.3); POTASSIUM 4.2 mmol/L (3.5-5.1)
[2019-05-23 14:46] VITALS: BP 87/54; PULSE 96; TEMP 98
--- NOTE | 2019-05-23 15:14 | PN ---
[facility] Progress Note Note: Patient seen for c/o diarrhea and follow up labs. Patient has hx of DM, Alcohol dependence, chronic pancreatitis and CKD. Patient had episodes of diarrhea on Thursday05/20/19 with epigastric/chest area tenderness. Treated with zofran, lomotil with relief. EKG done-results NSR with nonspecific T wave changes. He states although diarrhea somewhat relieved a few days ago with, he now has had multiple episodes of diarrhea today. Patient reports feeling weak, with poor appetite and mild abdominal discomfort. He denies chills, fever, chest pain, sob and dizziness. Laboratory Tests 05/18/19 05/19/19 05/19/19 21:55 06:24 11:48 Sodium Potassium Chloride Carbon Dioxide Anion Gap BUN Creatinine Est GFR (CKD-EPI)AfAm Est GFR (CKD-EPI)NonAf POC Glucometer 207 353 251 Random Glucose Calcium 05/19/19 05/19/19 05/20/19 17:01 22:47 06:16 Sodium Potassium Chloride Carbon Dioxide Anion Gap BUN Creatinine Est GFR (CKD-EPI)AfAm Est GFR (CKD-EPI)NonAf POC Glucometer 87 255 171 Random Glucose Calcium 05/20/19 05/20/19 05/20/19 11:55 16:27 21:51 Sodium Potassium Chloride Carbon Dioxide Anion Gap BUN Creatinine Est GFR (CKD-EPI)AfAm Est GFR (CKD-EPI)NonAf POC Glucometer 127 188 90 Random Glucose Calcium 05/21/19 05/21/19 05/21/19 06:24 11:35 16:41 Sodium Potassium Chloride Carbon Dioxide Anion Gap BUN Creatinine Est GFR (CKD-EPI)AfAm Est GFR (CKD-EPI)NonAf POC Glucometer 192 188 151 Random Glucose Calcium 05/21/19 05/22/19 05/22/19 21:43 08:22 11:32 Sodium Potassium Chloride Carbon Dioxide Anion Gap BUN Creatinine Est GFR (CKD-EPI)AfAm Est GFR (CKD-EPI)NonAf POC Glucometer 121 109 94 Random Glucose Calcium 05/22/19 05/22/19 05/22/19 17:02 21:43 23:02 Sodium Potassium Chloride Carbon Dioxide Anion Gap BUN Creatinine Est GFR (CKD-EPI)AfAm Est GFR (CKD-EPI)NonAf POC Glucometer 128 67 151 Random Glucose Calcium 05/23/19 05/23/19 05/23/19 06:16 08:05 13:19 Sodium 143 Potassium 4.2 Chloride 119 H Carbon Dioxide 19 L Anion Gap 5 L BUN 57.1 H Creatinine 4.2 H Est GFR (CKD-EPI)AfAm 17.25 Est GFR (CKD-EPI)NonAf 14.88 POC Glucometer 126 152 Random Glucose 145 H Calcium 8.8 Vital Signs Temperature 98 F 05/23/19 14:45 Pulse Rate 96 H 05/23/19 14:45 Respiratory Rate 16 05/23/19 14:45 Blood Pressure 87/54 L 05/23/19 14:45 O2 Sat by Pulse Oximetry (%) PE general: appears weak, tired, resting in bed alert and oriented x 3 skin warm and dry car s1s2, rrr resp cta bl gi bs+, mild tenderness at umbilical area, no rigidity, soft ext full rom, amb ad franchesca A/P Diarrhea Elevated BUN/CR- rule out ANGELO alcohol dependence Patient to be transferred to [facility] ED for further evaluation Report given to Dr. Lund and Dr. Luna
[2019-05-23] MEDS: ATORVASTATIN CA 20 MG TABLET (FP) PO SCH (21:59)
[2019-05-23] MEDS: INSULIN (LEVEMIR) 100 UNITS/ML UNITS SQ SCH (21:59)
[2019-05-23] MEDS: THIAMINE HCL 100 MG TABLET (FP) PO SCH (22:00)
[2019-05-23] MEDS: QUEtiapine FUMARATE 200 MG TABLET PO SCH (22:00)
[2019-05-23] MEDS ORDERED: SUVOREXANT 10 MG TABLET PO PRN (22:00)
== END 2019-05-23 22:51 | disposition short-term general hospital (02) | DRG 772 ==
LOC: YASAS 20:57 → Y3W 20:58
PROVIDERS: ADMIT Allergy & Immunology; ATTEND Allergy & Immunology
PROC: HZ42ZZZ Group Counseling for Substance Abuse Treatment, Cognitive-Behavioral (ICD-10-PCS; principal; 2019-05-18)
DX: F10.20 Alcohol dependence, uncomplicated (principal); F11.20 Opioid dependence, uncomplicated; F13.20 Sedative, hypnotic or anxiolytic dependence, uncomplicated; F17.210 Nicotine dependence, cigarettes, uncomplicated; F39 Unspecified mood [affective] disorder; D64.9 Anemia, unspecified; G47.00 Insomnia, unspecified; I10 Essential (primary) hypertension; K21.9 Gastro-esophageal reflux disease without esophagitis; E78.5 Hyperlipidemia, unspecified; E11.42 Type 2 diabetes mellitus with diabetic polyneuropathy; Z79.84 Long term (current) use of oral hypoglycemic drugs; N40.0 Benign prostatic hyperplasia without lower urinary tract symptoms; J44.9 Chronic obstructive pulmonary disease, unspecified; J45.998 Other asthma; Z87.19 Personal history of other diseases of the digestive system
CPT/HCPCS: 36415; 80048; 82962; Q0162

== ENCOUNTER 2019-05-23 15:54 | Inpatient (IN) | payer OTHER ==
[2019-05-23 16:04] VITALS: BMI 26.6
[2019-05-23] MEDS ORDERED: SODIUM CHLORIDE 0.9% 500 ML INFUS.BAG IV ONE (17:06)
[2019-05-23] MEDS ORDERED: ACETAMINOPHEN 1000 MG/100 ML VIAL (NON FORMULARY) IVPB ONE (17:06)
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
[2019-05-23] MEDS ORDERED: FAMOTIDINE 20 MG/50 ML IVPB 20 MG/50 ML MG IVPB ONE ×2 (17:21→17:27)
[2019-05-23] MEDS ORDERED: MAG HYDROX/AL HYDROX/SIMETH -MYLANTA- ORAL SUSPENSION PO ONE (17:21)
[2019-05-23] MEDS ORDERED: ACETAMINOPHEN INJECTION 100 ML IVPB ONE (17:26)
[2019-05-23] MEDS ORDERED: MAG HYDROX/AL HYDROX/SIMETH 30 ML UNIT-DOSE CUP ONE (17:26)
[2019-05-23 17:37] LABS: BASO % 0.6 % (0-2.0); EOS % 0.8 % (0-4.5); HEMOGLOBIN 11.7 GM/dL (11.7-16.9); LYMPH % 18.4 % (8-40); MCH 31.8 pg (25.7-33.7); MCHC 32.5 g/dl (32.0-35.9); MEAN CELL VOLUME 98.1 fl (80-96); MEAN PLT VOLUME 9.9 fl (7.5-11.1); MONO % 18.3 % (3.8-10.2); NEUT % 61.9 % (42.8-82.8); PLATELET COUNT 185 K/MM3 (134-434); RBC 3.67 M/mm3 (4.00-5.60); RDW 15.2 % (11.9-15.9); WHITE BLOOD COUNT 13.3 K/mm3 (4.0-10.0)
--- NOTE | 2019-05-23 18:02 | PDOC ---
Attending Attestation - Resident Resident Name: Liban Muro - ED Attending Attestation I have performed the following: I have examined & evaluated the patient, The case was reviewed & discussed with the resident, I agree w/resident's findings & plan, Exceptions are as noted - HPI HPI: 05/23/19 18:16 53y M hx of GERD, DM, HTN, chronic pancreatitis, etoh abuse, opiod dependance ( being mangaed with methadone) presents with complaint of n/v/d for several days. Patient arrived at [facility] for detox approximately 7 days ago, began to have nausea vomiting diarrhea, and has been unable to tolerate oral intake patient notes that his vomiting has gradually been getting worse however his diarrhea is multiple times a day, watery. States that his green in color and watery without melena or blood. Patient denies any fevers or chills, notes some mild low abdominal discomfort. No recent travel or known sick contacts. Patient also notes some back pain as well as some dysuria. Physicial exam GENERAL: The patient is awake, alert, and fully oriented, Nontoxic - in no acute distress. HEAD: Normocephalic, atraumatic. EYES: extraocular movements intact, sclera anicteric, conjunctiva clear. ENT: Normal voice, dry mucous membranes. NECK: Normal range of motion, supple LUNGS: Breath sounds equal, clear to auscultation bilaterally. No wheezes, no rhonchi, no rales. HEART: Regular rate and rhythm, normal S1 and S2 without murmur, rub or gallop. ABDOMEN: Soft, moderate lower abd tenderness No guarding, no rebound. mild bl CVA tenderness EXTREMITIES: Normal range of motion, no edema. NEUROLOGICAL: No facial assymetry, Normal speech, PSYCH: Normal mood, normal affect. SKIN: Warm, Dry, normal turgor, Differential for the patient's symptoms includes gastroenteritis, consider possible dehydration, ANGELO, Will obtain blood work, IV was placed will fluid resuscitate the patient We will give the patient some Zofran CT of the abdomen to rule out acute pathology The patient's did have some blood work performed this morning prior to arrival his creatinine was 4 that was elevated from his prior creatinine upon arrival at detox. The patient's EKG does not reveal any peaked T waves - Physicial Exam PE: 05/27/19 00:45 see above - Medical Decision Making 05/23/19 18:44 Patient's blood work was reviewed his creatinine is persistently elevated for this likely secondary to dehydration from his vomiting diarrhea. Will continue aggressive fluid resuscitation, patient is pending a CT of the abdomen. Dissipate admission for further management Heart Score/ECG Review - ECG Impressions Comment:: 05/23/19 18:24 Twelve-lead EKG was performed and reviewed by me. There is normal sinus rhythm with a rate of 101 The axis is normal. The intervals are normal. There are no ST or T wave abnormalities.
[2019-05-23 18:17] LABS: ALBUMIN 3.3 g/dl (3.4-5.0); BILIRUBIN,TOTAL 0.3 mg/dL (0.2-1); BLOOD UREA NITROGEN 56.4 mg/dL (7-18); CALCIUM 8.6 mg/dL (8.5-10.1); CREATININE 4.1 mg/dL (0.55-1.3); POTASSIUM 4.9 mmol/L (3.5-5.1); TOT PROT 7.5 g/dl (6.4-8.2)
[2019-05-23 18:43] LABS: EPI CELLS 1.6 /HPF (0-5/HPF); HYALINE CASTS 4 /lpf (0-8); URINE APPEARANCE CLEAR; URINE BACTERIA 4.3 /hpf (NEGATIVE); URINE BILIRUBIN NEGATIVE (NEGATIVE); URINE COLOR YELLOW; URINE GLUCOSE (UA) NEGATIVE (NEGATIVE); URINE KETONE NEGATIVE (NEGATIVE); URINE LEUK ESTERASE NEGATIVE (NEGATIVE); URINE NITRITE NEGATIVE (NEGATIVE); URINE PROTEIN TRACE (NEGATIVE); URINE RBC 2 /hpf (0-4); URINE UROBILINOGEN 0.2 mg/dL (0.2-1.0); URINE WBC 2 /hpf (0-5)
--- NOTE | 2019-05-23 19:26 | PDOC ---
*Physical Exam - Vital Signs Last Vital Signs Temp Pulse Resp BP Pulse Ox 97.9 F 100 H 20 94/65 96 05/23/19 16:01 05/23/19 16:01 05/23/19 16:01 05/23/19 16:01 05/23/19 16:01 ED Treatment Course - LABORATORY CBC & Chemistry Diagram: 05/23/19 16:45 05/23/19 16:45 - ADDITIONAL ORDERS Additional order review: Laboratory Results 05/23/19 05/23/19 17:50 16:45 Sodium 140 Potassium 4.9 Chloride 118 H Carbon Dioxide 17 L Anion Gap 6 L BUN 56.4 H Creatinine 4.1 H Est GFR (CKD-EPI)AfAm 17.76 Est GFR (CKD-EPI)NonAf 15.32 Random Glucose 140 H Calcium 8.6 Total Bilirubin 0.3 AST 23 ALT 25 Alkaline Phosphatase 134 H Total Protein 7.5 Albumin 3.3 L Urine Color Yellow Urine Appearance Clear Urine pH 5.0 D Ur Specific [place] 1.016 Urine Protein Trace Urine Glucose (UA) Negative Urine Ketones Negative Urine Blood Negative Urine Nitrite Negative Urine Bilirubin Negative Urine Urobilinogen 0.2 Ur Leukocyte Esterase Negative Urine WBC (Auto) 2 Urine RBC (Auto) 2 Urine Casts (Auto) 4 U Epithel Cells (Auto) 1.6 Urine Bacteria (Auto) 4.3 05/23/19 16:45 RBC 3.67 L MCV 98.1 H MCHC 32.5 RDW 15.2 MPV 9.9 D Neutrophils % 61.9 Lymphocytes % 18.4 D Monocytes % 18.3 H D Eosinophils % 0.8 Basophils % 0.6 - Medications Given in the ED: ED Medications Discontinued Medications Generic Name Dose Route Start Last Admin Trade Name Carterq PRN Reason Stop Dose Admin Acetaminophen 1,000 mg 05/23/19 17:06 05/23/19 17:56 Ofirmev Injection - IVPB 05/23/19 17:07 1,000 mg ONCE ONE Administration Al Hydroxide/Mg Hydroxide 30 ml 05/23/19 17:21 05/23/19 17:32 Mylanta Suspension - PO 05/23/19 17:22 30 ml ONCE ONE Administration Famotidine/Sodium Chloride 20 mg in 50 mls @ 100 mls/hr 05/23/19 17:21 17:32 Pepcid 20 Mg Premixed Ivpb - IVPB 05/23/19 17:50 100 mls/hr ONCE ONE Administration Sodium Chloride 1,000 ml 05/23/19 17:06 05/23/19 17:23 Normal Saline - IV 05/23/19 17:07 1,000 ml ONCE ONE Administration Medical Decision Making - Medical Decision Making 05/23/19 19:22 53yo M s/p 1 week [facility] for alcohol withdrawal Presenting with intermittent generalized abdominal cramping, n / v / d, dysuria No fevers/chills/flu neg/no sick contacts - Cr 4, baseline 1 - IVF - CT read pending - S/p 1g Ofirmev, GI cocktail - Admitting for ANGELO 05/23/19 20:19 - No acute findings on CTAP - CXR ordered - Needs troponin, lactate Dispo: Admit for ANGELO Discharge - Discharge Information Problems reviewed: Yes Clinical Impression/Diagnosis: ANGELO (acute kidney injury), Opioid dependence on agonist therapy GERD (gastroesophageal reflux disease) Qualifiers: Esophagitis presence: esophagitis presence not specified Qualified Code(s): K21.9 - Gastro-esophageal reflux disease without esophagitis Condition: Good - Admission Yes - Follow up/Referral - Patient Discharge Instructions - Post Discharge Activity
[2019-05-23 21:33] LABS: PLATELET ESTIMATE ADEQUATE
[2019-05-23] MEDS ORDERED: SODIUM CHLORIDE 1,000 ML IV SCH (22:00)
--- NOTE | 2019-05-24 00:24 | HP ---
CHIEF COMPLAINT: diarrhea PCP: none HISTORY OF PRESENT ILLNESS: 53 y.o. PMH HTN, CKD, GERD, type 2 DM, chronic pancreatitis, EtOH abuse, opioid depenence on 80mg methadone ([facility] in [place]) presenting from rehab at [facility] for diarrhea, diffuse abdominal pain, nausea and vomiting. The patient recently completed [facility] detox at [facility] (admitted on 05/14/2019) and has started rehab. About 1 week ago the patient began having diarrhea and has been having 4 episodes of dark green non-bloody bowel movements daily with intermittent nausea and NBNB vomiting. He has also been having diffuse abdominal pain for the past few days; the pain is generalized, 9/10, aggrevated w/ movement and not relieved with medications. He notes that his appetite has been poor and he feels very dehydrated. Last colonoscopy >1 yr ago, was normal as per patient. ER course was notable for: (1) 1g IV tylenol, pepcid 20mg IV, mylanta 30mg PO (2) 1 L normal saline, NS @125cc/hr (3) Leukocytosis 13.3, BUN 56/creatinine 4 (4): CT A/P: possible mesenteric panniculitis. Recent Travel: denies PAST MEDICAL HISTORY: as per hpi PAST SURGICAL HISTORY: Social History: Smoking: occasional cannot quantify Alcohol: chronic etoh abuse; no reported drinks since strting detox on 05/14/2019 Drugs: on methadone 80mg /daily Sexual: not currently sexually active. Had testing a few months ago for HIV & STD's negative as per patient. Allergies No Known Allergies Allergy (Verified 05/14/19 16:58) HOME MEDICATIONS: Home Medications Medication Instructions Recorded Albuterol Sulfate Inhaler - 2 inh IH Q4H PRN #1 inh 03/14/19 [Ventolin HFA Inhaler -] Aspirin [Aspirin EC] 81 mg PO DAILY #14 tablet. 03/14/19 Atorvastatin Ca [Lipitor] 20 mg PO HS #14 tablet 03/14/19 Blood-Glucose Meter [Contour Next] 1 each AC #1 kit 03/14/19 Budesonide/Formeterol Fumarate 2 inh PO BID #1 inhaler 03/14/19 [SYMBICORT 80/4.5mcg -] Famotidine 20 mg PO BID #28 tablet 03/14/19 Ferrous Sulfate [Feosol] 325 mg PO DAILY #14 tab 03/14/19 Glipizide 5 mg PO DAILY #14 tablet 03/14/19 Lipase/Protease/Amylase [Erich Camejo 4 cap PO BID #60 capsule.dr 03/14/19 6,000 Units Capsule] Lisinopril [Prinivil] 40 mg PO DAILY@0600 #14 tablet 03/14/19 Nifedipine ER [Procardia XL -] 1 tablet PO DAILY #14 tab.er.24 03/14/19 Quetiapine Fumarate [Seroquel -] 200 mg PO HS #30 tablet 03/14/19 Tamsulosin HCl [Flomax -] 0.4 mg PO DAILY@0830 #14 cap.er.24h 03/14/19 Topiramate [Topamax -] 25 mg PO BID #28 tablet 03/14/19 Blood Sugar Diagnostic [Test 1 each QID #100 strip 03/15/19 Strips] Insulin Glargine,Hum.rec.anlog 15 ml SQ HS 30 Days #1 ins 03/15/19 [Lantus Solostar PEN -] Insulin Sliding Scale [Novolog 1 vial SQ ACHS #2 units 03/15/19 Vial Sliding Scale -] Isopropyl Alcohol [Alcoh-Wipe] 1 each MC ACBK #1 towelette 03/15/19 Syringe-Needle,Insulin,0.5 ml 1 each QID #100 disp.syrin 03/15/19 [Insulin Syringe] REVIEW OF SYSTEMS CONSTITUTIONAL: generalized weakness, malaise, loss of appetite, weight loss Absent: fever, chills, diaphoresis HEENT: Absent: rhinorrhea, nasal congestion, throat pain, throat swelling, difficulty swallowing, mouth swelling, ear pain, eye pain, visual changes CARDIOVASCULAR: Absent: chest pain, syncope, palpitations, irregular heart rate, lightheadedness , peripheral edema RESPIRATORY: Absent: cough, shortness of breath, dyspnea with exertion, orthopnea, wheezing, stridor, hemoptysis GASTROINTESTINAL: abdominal pain, nausea, vomiting, diarrhea Absent: abdominal distension, constipation, melena, hematochezia GENITOURINARY: Absent: dysuria, frequency, urgency, hesitancy, hematuria, flank pain, genital pain MUSCULOSKELETAL: Absent: myalgia, arthralgia, joint swelling, back pain, neck pain SKIN: Absent: rash, itching, pallor HEMATOLOGIC/IMMUNOLOGIC: Absent: easy bleeding, easy bruising, lymphadenopathy, frequent infections ENDOCRINE: Absent: unexplained weight gain, unexplained weight loss, heat intolerance, cold intolerance NEUROLOGIC: Absent: headache, focal weakness or paresthesias, dizziness, unsteady gait, seizure, mental status changes, bladder or bowel incontinence PSYCHIATRIC: Absent: anxiety, depression, suicidal or homicidal ideation, hallucinations. PHYSICAL EXAMINATION Vital Signs - 24 hr 05/23/19 16:01 Temperature 97.9 F Pulse Rate 100 H Respiratory 20 Rate Blood Pressure 94/65 O2 Sat by Pulse 96 Oximetry (%) GENERAL: Awake, alert, and fully oriented, in no acute distress. HEENT: NCAT. No JVD. PERRLA. Sclera clear. LUNGS: Breath sounds equal, clear to auscultation bilaterally. No wheezes, and no crackles. No accessory muscle use. HEART: Regular rate and rhythm, normal S1 and S2 without murmur, rub or gallop. ABDOMEN: Tender to palpation all quadrants. + guarding. Soft, not distended, normoactive bowel sounds. EXTREMITIES: 2+ pulses, warm, well-perfused. No peripheral edema. NEUROLOGICAL: Cranial nerves II-XII intact. PSYCHIATRIC: Cooperative. Good eye contact. Appropriate mood and affect. SKIN: Warm, dry. Laboratory Results - last 24 hr Laboratory Last Values WBC 13.3 K/mm3 (4.0-10.0) H 05/23/19 16:45 RBC 3.67 M/mm3 (4.00-5.60) L 05/23/19 16:45 Hgb 11.7 GM/dL (11.7-16.9) 05/23/19 16:45 Hct 36.0 % (35.4-49) 05/23/19 16:45 MCV 98.1 fl (80-96) H 05/23/19 16:45 MCH 31.8 pg (25.7-33.7) 05/23/19 16:45 MCHC 32.5 g/dl (32.0-35.9) 05/23/19 16:45 RDW 15.2 % (11.9-15.9) 05/23/19 16:45 Plt Count 185 K/MM3 (134-434) D 05/23/19 16:45 MPV 9.9 fl (7.5-11.1) D 05/23/19 16:45 Absolute Neuts (auto) 8.3 K/mm3 (1.5-8.0) H 05/23/19 16:45 Neutrophils % 61.9 % (42.8-82.8) 05/23/19 16:45 Neutrophils % (Manual) 40.0 % (42.8-82.8) L 05/23/19 16:45 Band Neutrophils % 19.0 % 05/23/19 16:45 Lymphocytes % 18.4 % (8-40) D 05/23/19 16:45 Lymphocytes % (Manual) 33.0 % (8-40) 05/23/19 16:45 Monocytes % 18.3 % (3.8-10.2) H D 05/23/19 16:45 Monocytes % (Manual) 4 % (3.8-10.2) 05/23/19 16:45 Eosinophils % 0.8 % (0-4.5) 05/23/19 16:45 Eosinophils % (Manual) 0.0 % (0-4.5) 05/23/19 16:45 Basophils % 0.6 % (0-2.0) 05/23/19 16:45 Basophils % (Manual) 0.0 % (0-2.0) 05/23/19 16:45 Myelocytes % (Man) 2 % (0-2) 05/23/19 16:45 Nucleated RBC % 0 % (0-0) 05/23/19 16:45 Metamyelocytes 2 % (0-2) 05/23/19 16:45 Platelet Estimate Adequate 05/23/19 16:45 Sodium 140 mmol/L (136-145) 05/23/19 16:45 Potassium 4.9 mmol/L (3.5-5.1) 05/23/19 16:45 Chloride 118 mmol/L (98-107) H 05/23/19 16:45 Carbon Dioxide 17 mmol/L (21-32) L 05/23/19 16:45 Anion Gap 6 MMOL/L (8-16) L 05/23/19 16:45 BUN 56.4 mg/dL (7-18) H 05/23/19 16:45 Creatinine 4.1 mg/dL (0.55-1.3) H 05/23/19 16:45 Est GFR (CKD-EPI)AfAm 17.76 05/23/19 16:45 Est GFR (CKD-EPI)NonAf 15.32 05/23/19 16:45 Random Glucose 140 mg/dL (74-106) H 05/23/19 16:45 Lactic Acid 0.6 mmol/L (0.4-2.0) 05/23/19 22:13 Calcium 8.6 mg/dL (8.5-10.1) 05/23/19 16:45 Total Bilirubin 0.3 mg/dL (0.2-1) 05/23/19 16:45 AST 23 U/L (15-37) 05/23/19 16:45 ALT 25 U/L (13-61) 05/23/19 16:45 Alkaline Phosphatase 134 U/L (45-117) H 05/23/19 16:45 Creatine Kinase 32 U/L (26-308) 05/23/19 22:13 Troponin I < 0.02 ng/ml (0.00-0.05) 05/23/19 22:13 Total Protein 7.5 g/dl (6.4-8.2) 05/23/19 16:45 Albumin 3.3 g/dl (3.4-5.0) L 05/23/19 16:45 Urine Color Yellow 05/23/19 17:50 Urine Appearance Clear 05/23/19 17:50 Urine pH 5.0 (5.0-8.0) D 05/23/19 17:50 Ur Specific [place] 1.016 (1.010-1.035) 05/23/19 17:50 Urine Protein Trace (NEGATIVE) 05/23/19 17:50 Urine Glucose (UA) Negative (NEGATIVE) 05/23/19 17:50 Urine Ketones Negative (NEGATIVE) 05/23/19 17:50 Urine Blood Negative (NEGATIVE) 05/23/19 17:50 Urine Nitrite Negative (NEGATIVE) 05/23/19 17:50 Urine Bilirubin Negative (NEGATIVE) 05/23/19 17:50 Urine Urobilinogen 0.2 mg/dL (0.2-1.0) 05/23/19 17:50 Ur Leukocyte Esterase Negative (NEGATIVE) 05/23/19 17:50 Urine WBC (Auto) 2 /hpf (0-5) 05/23/19 17:50 Urine RBC (Auto) 2 /hpf (0-4) 05/23/19 17:50 Urine Casts (Auto) 4 /lpf (0-8) 05/23/19 17:50 U Epithel Cells (Auto) 1.6 /HPF (0-5/HPF) 05/23/19 17:50 Urine Bacteria (Auto) 4.3 /hpf (NEGATIVE) 05/23/19 17:50 Influenza A (Rapid) Negative (Negative) 05/23/19 16:45 Influenza B (Rapid) Negative (Negative) 05/23/19 16:45 Imaging: CT A/P: Mildly increased fluid is seen within the colon and small bowel without definite associated wall edema - ? diarrheal illness. In comparison to a prior CT study of 02/18/2019 apparent interval development of slightly increased mesenteric density is seen centrally with associated development of several slightly prominent mesenteric lymph nodes in the same region. This appearance may be on the basis of clinical or subclinical mesenteric panniculitis. Correlation with 2 month follow-up CT is suggested to document stability/ resolution and lack of developing pathology. Chronic calcific pancreatitis is again noted. As on prior studies there is mild chronic common bile duct dilatation. ASSESSMENT/PLAN: 53 y.o. M HTN, CKD, GERD, type 2 DM, chronic pancreatitis & CBD dilatation, EtOH abuse, opioid depenence on 80mg methadone ([facility] in [place]), COPD presenting for ANGELO on CKD and acute diarrheal illness. #Acute diarrheal illness likely 2/2 c. diff colitis -CT A/P showing acute mesenteric panniculitis w/ edematous changes seen in colon & sm. bowel -f/u C. Diff, stool studies, lytes-- has been treated in past for C. 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, may be candidate for fidaxomicin therapy/ fecal transplant #ANGELO on CKD -BUN/cr 56/4; baseline Cr ~1.3 -renal U/S -IVF -avoid nephrotoxic agents -f/u AM renal labs -Nephro consulted #Chronic pancreatitis -seen on prior studies -f/u Lipase -continue Creon therapy #CBD dilatation, chronic -isolated elevated alk phos -seen on prior studies -no calculi noted #HTN -orthostatic hypotension standing 125/84-- sitting 109/72-- standing 111/77 -holding home anti-htn meds in light of (procardia XL, lisinipril 40mg daily) #GERD -pepcid home dose -continue to monitor #COPD -continue home albuterol inhaler prn -symbicort 2inh PO BID #DM2 -BGMs ACHS -ISS -holding home oral agents -f/u HbA1c #EtOH abuse -s/p libirum detox at [facility] -no signs of withdrawal on this visit -thiamine, folic acid, multivitamin -fall precautions #Opioid dependence -On 80mg daily methadone -confirm dose w/ [facility] in [place] -f/u u-tox #BPH -holding home flomax 2/2 orthostatic hypotension #PPX -hold PPI in setting of hx of c. diff -heparin sq #FEN -LR @ 100cc/hr -trend lytes replete prn -NPO Visit type - Emergency Visit Emergency Visit: Yes ED Registration Date: 05/23/19 Care time: The patient presented to the Emergency Department on the above date and was hospitalized for further evaluation of their emergent condition. - New Patient This patient is new to me today: Yes Date on this admission: 05/24/19 - Critical Care Critical Care patient: No ATTENDING PHYSICIAN STATEMENT I saw and evaluated the patient. I reviewed the resident's note and discussed the case with the resident. I agree with the resident's findings and plan as documented. SUBJECTIVE: OBJECTIVE: ASSESSMENT AND PLAN:
[2019-05-24] MEDS ORDERED: ALBUTEROL SO4 HFA INHALER IH PRN (01:23)
[2019-05-24] MEDS ORDERED: PIPERACILLIN/TAZOB 3.375 GM 3.375 GM in DEXTROSE 5%-WATER - 50 ML IVPB ONE (01:29)
--- NOTE | 2019-05-24 01:58 | PN ---
Teaching Attending Note Name of Resident: Celena Ramirez ATTENDING PHYSICIAN STATEMENT I saw and evaluated the patient. I reviewed the resident's note and discussed the case with the resident. I agree with the resident's findings and plan as documented. SUBJECTIVE: 53-year-old male with multiple medical problems including recurrent C. difficile colitis status post 3 treatments with p.o. vancomycin, chronic pancreatitis, diabetes mellitus, hypertension, GERD, polysubstance abuse with EtOH, CKD presenting about 3 days watery diarrhea per day. Reports that his stool was green in color, watery without blood. Also associated with some non- bilious nonbloody vomiting. Denies any fevers or chills, does report some lower abdominal discomfort. Patient has been sent from [facility]. He reports his last drink of alcohol was about 1 week ago. OBJECTIVE: Last Vital Signs Temp Pulse Resp BP Pulse Ox 97.9 F 100 H 20 94/65 96 05/23/19 16:01 05/23/19 16:01 05/23/19 16:01 05/23/19 16:01 05/23/19 16:01 GENERAL: Well developed, well nourished. Awake and alert. Appears lethargic nontoxic- appearing HEENT: Normocephalic, atraumatic. PERRLA, EOMI. No conjunctival pallor. Sclera are non- icteric. Moist mucous membranes. Oropharynx is clear. NECK: Supple. Full ROM. No JVD. Carotid pulses 2+ and symmetric, without bruits. No thyromegaly. No lymphadenopathy. CARDIOVASCULAR: Regular rate and rhythm. No murmurs, rubs, or gallops. Distal pulses are 2+ and symmetric. PULMONARY: No evidence of respiratory distress. Lungs clear to auscultation bilaterally. No wheezing, rales or rhonchi. ABDOMINAL: Soft. Bilateral lower abdominal quadrant tenderness Non-distended. No rebound or guarding. Decreased bowel sounds MUSCULOSKELETAL Normal range of motion at all joints. No bony deformities or tenderness. No CVA tenderness. EXTREMITIES: No cyanosis. No clubbing. No edema. No calf tenderness. SKIN: Warm and dry. Poor skin turgor NEUROLOGICAL: Alert, awake, appropriate.Very lethargic PSYCHIATRIC: Cooperative. Good eye contact. Appropriate mood and affect. Abnormal Lab Results 05/23/19 05/23/19 16:45 16:45 WBC 13.3 H RBC 3.67 L MCV 98.1 H Absolute Neuts (auto) 8.3 H Neutrophils % (Manual) 40.0 L Monocytes % 18.3 H D Chloride 118 H Carbon Dioxide 17 L Anion Gap 6 L BUN 56.4 H Creatinine 4.1 H Random Glucose 140 H Alkaline Phosphatase 134 H Albumin 3.3 L Imaging studies reviewed CT of abdomen pelvis was appreciated. Mildly increased fluid is seen within the colon and small bowel without definitely associated wall edema. In comparison of prior CT from 02/18/2019 apparent interval development of slightly increased mesenteric density seen centrally with associated development of several slightly prominent mesenteric lymph nodes in the same region. This appearance may be on the basis of clinical or subclinical mesenteric panniculitis. ASSESSMENT AND PLAN: 53-year-old male with recurrent C. difficile colitis presenting with several days of watery loose bowel movements, nonbloody with leukocytosis, very suspicious for recurrent C. difficile colitis. Due to high risk factors such as previous C. difficile, poor nutrition and EtOH intake, leukocytosis will treat empirically with vancomycin p.o., place and contact isolation. Admit to [facility] Contact isolation Strict handwashing Stool for C. difficile toxin PCR, stool culture, stool WBC, Infectious disease and GI consults Vancomycin to 50 mg p.o. every 6 hours Brat diet Zofran IV as needed if nausea or vomiting IV fluid hydration with LR #ANGELO on CKDsuspect likely prerenal azotemia as patient is profoundly dehydrated secondary to profound nausea and vomiting and diarrhea Send urine lites I's and O's Daily weights Avoid nephrotoxins IV fluid hydration Nephrology evaluation #Polysubstance abusecoming from [facility], no signs of acute EtOH withdrawal [facility] protocol Thiamine and folate and multivitamin IV fluid hydration Urine toxicology screen [facility] protocol Zofran if nausea or vomiting Ativan IV as needed if signs of withdrawal #Uncontrolled hyperglycemia Insulin sliding scale A1c Basal insulin #COPD Continue with Symbicort #BPH Continue with Flomax Hold antihypertensives as patient is intravascularly fluid depleted and is rather hypotensive at this time #Chronic pancreatitissecondary to EtOH abuse Continue with Creon Heparin subcutaneously for DVT prophylaxis
[2019-05-24] MEDS: LACTATED RINGERS SOLUTION 1,000 ML/1,000 ML INFUS.BAG IV SCH ×2 (02:17→15:33)
[2019-05-24 06:35] LABS: BASO % 0.4 % (0-2.0); EOS % 1.1 % (0-4.5); HEMOGLOBIN 9.8 GM/dL (11.7-16.9); LYMPH % 22.8 % (8-40); MCH 31.9 pg (25.7-33.7); MCHC 32.9 g/dl (32.0-35.9); MEAN CELL VOLUME 96.9 fl (80-96); MEAN PLT VOLUME 9.1 fl (7.5-11.1); MONO % 17.6 % (3.8-10.2); NEUT % 58.1 % (42.8-82.8); PLATELET COUNT 147 K/MM3 (134-434); RBC 3.09 M/mm3 (4.00-5.60); RDW 15.1 % (11.9-15.9); WHITE BLOOD COUNT 9.9 K/mm3 (4.0-10.0)
[2019-05-24 06:47] LABS: INR 1.13 (0.83-1.09); PROTHROMBIN TIME (PATIENT) 13.4 SEC (9.7-13.0)
[2019-05-24 06:49] LABS: ACTIVATED PTT 30.5 SECONDS (25.2-36.5)
[2019-05-24] MEDS ORDERED: INSULIN SLIDING SCALE (NOVOLOG) 1 VIAL SQ SCH (07:00)
[2019-05-24 07:02] LABS: ALBUMIN 2.9 g/dl (3.4-5.0); BILIRUBIN,TOTAL 0.3 mg/dL (0.2-1); BLOOD UREA NITROGEN 52.2 mg/dL (7-18); CALCIUM 8.3 mg/dL (8.5-10.1); CREATININE 3.2 mg/dL (0.55-1.3); POTASSIUM 4.2 mmol/L (3.5-5.1); TOT PROT 6.1 g/dl (6.4-8.2)
[2019-05-24] MEDS: INSULIN SLIDING SCALE (NOVOLOG) 1 VIAL SQ SCH ×3 (07:02→18:08)
[2019-05-24] MEDS ORDERED: HEPARIN NA (PORCINE) 5,000 UNITS/ML 1ML VIAL ONE (07:03)
[2019-05-24] MEDS: HEPARIN NA (PORCINE) 5,000 UNITS/ML 1ML VIAL SQ SCH ×3 (07:05→21:51)
[2019-05-24] MEDS ORDERED: VANCOMYCIN 1 GRAM (PRE-DOCKED) 1,000 MG/250 ML BAG IVPB ONE (07:55)
[2019-05-24 09:12] LABS: ANISOCYTOSIS 0; MACROCYTOSIS 0; PLATELET ESTIMATE NORMAL
[2019-05-24] MEDS ORDERED: PT OWN MED DRAWER 7, Y5N ONE ×4 (09:48→21:05)
[2019-05-24] MEDS: VANCOMYCIN 250 MG/5 ML ORAL SOLUTION PO SCH ×3 (09:50→18:07)
[2019-05-24] MEDS: LIPASE/PROTEASE/AMYLASE 6,000 UNIT CAPSULE PO SCH ×2 (09:51→21:52)
[2019-05-24] MEDS: THIAMINE HCL 100 MG TABLET (FP) PO SCH (09:52)
[2019-05-24] MEDS: FOLIC ACID 1 MG TABLET (FP) PO SCH (09:52)
[2019-05-24] MEDS: FERROUS SO4 325 MG TABLET (FP) PO SCH (09:52)
[2019-05-24] MEDS: MULTIVITAMINS (DAILY MVI) TABLET (FP) PO SCH (09:52)
[2019-05-24] MEDS ORDERED: METHADONE HCL 40 MG DISPERSABLE TABLET ONE (10:06)
[2019-05-24] MEDS: METHADONE HCL 40 MG DISPERSABLE TABLET PO SCH (10:14)
[2019-05-24] MEDS: BUDESONIDE/FORMETEROL FUMARATE 80/4.5 mcg INHALER IH SCH ×2 (10:14→21:52)
--- NOTE | 2019-05-24 11:18 | PN ---
Progress Note (short form) - Note Progress Note: ID CONSULT DICTATED DIARRHEA R/O RECURRENT C DIFFICILE DEHYRATION/ AZOTEMIA AWAIT STOOL STUDIES CONTINUE PO VANCOMYCIN DECLINES HIV TESTING
--- NOTE | 2019-05-24 13:07 | CONS ---
DATE OF CONSULTATION: DATE OF DICTATION: 05/24/2019 INFECTIOUS DISEASE CONSULTATION HISTORY OF PRESENT ILLNESS: The patient is a 53-year-old male with a history of recurrent Clostridium difficile colitis now reevaluated for possible recurrence. He has a history of opiate use. He was admitted to detox and rehab on May 14, 2019. He reports that several days after being in rehab he developed diffuse crampy abdominal pain associated with nonbloody nonbilious vomiting and nonbloody diarrhea. He described the stools as dark and green in color, liquid consistency. No rajani blood was noted. He denied any associated fever or chills. He was transferred to the emergency room where a CAT scan of the abdomen and pelvis was performed. It showed evidence of mesenteric panniculitis. There was diverticulosis without evidence of acute diverticulitis. There was mildly increased fluid seen in the ascending and transverse segments of the colon, also within several bowel loops suggestive of diarrheal illness. The patient denies any recent antibiotic therapy. No recent travel. No ill contacts. He reports having recurrent C difficile colitis in the past. The first episode was a year or 2 ago. The most recent episode was in February 2019. He reports receiving several courses of oral vancomycin. He denies any history of prolonged tapering doses of vancomycin or treatment with other agents. PAST MEDICAL HISTORY: Positive for chronic opioid use, diabetes mellitus, hypertension, gastroesophageal reflux, chronic pancreatitis. ALLERGIES: No known allergies. LABORATORY DATA: White count 13.3, 40 neutrophils, 19 bands, 18 lymphocytes, hematocrit 36.0, platelet count 185. Urinalysis 2 white cells. Creatinine 3.2. Influenza swab negative. Lipase 63. Liver enzymes normal. PHYSICAL EXAMINATION: General: He is not acutely toxic appearing. Vital Signs: Temperature 98.4, blood pressure 120/74, pulse 70, regular, respirations 16 per minute. HEENT: Sclerae are anicteric. Cardiac: Heart sounds S1, S2. Lungs: Clear. Abdomen: Soft. No tenderness elicited. Extremities: Negative for edema. IMPRESSION: 1. Diarrhea, rule out enteric pathogens versus recurrent Clostridium difficile colitis. 2. Azotemia/dehydration. 3. History of opiate use. RECOMMENDATIONS: Obtain stool culture, stool C difficile, ova and parasite, Giardia and cryptosporidium antigen, rotavirus antigen, neurovirus PCR. IV fluid hydration. Continue oral vancomycin 125 mg p.o. 4 times daily; complete 10-day course. Contact precautions. Patient declines HIV testing as he states he was tested 3 months ago and was negative. He denies using needles or high-risk sexual activity. ABIDA PARADA M.D. [id number]
--- NOTE | 2019-05-24 14:00 | PN ---
Teaching Attending Note Name of Resident: Sam Price ATTENDING PHYSICIAN STATEMENT I saw and evaluated the patient. I reviewed the resident's note and discussed the case with the resident. I agree with the resident's findings and plan as documented. SUBJECTIVE: cont to have abd pain, he feels tired and fatigues. no N/V . vomited last night . no hematochezia OBJECTIVE: NAD , awake, alert, cooperative . CV: RRR, no MRg , no JVD Lungs: CTAB Abd: soft, TTP in all quadrants. + rebound tenderness. Nl BS Ext: varicose veins, hyperpigmentation in lower legs and feet. ASSESSMENT AND PLAN: 53 y/o man with h/o recurrent C diff, IDDM, HTN, GERD,polysubstance abuse, chronic pancreatitis , COPD, BPH, ETOH use, CKD, and other medical problems who was sent from [facility] rehab for diarrhea. 1- Diarrhea, N/V, and abd pain : ? viral gastroenteritis ( involvement of smal and large bowel ) VS c diff colitis. CT scan was done without contrast. - cont po vanco empirically. will dc if C diff txoin neg - cont IVF - stool cx and Fecal WBC - If this is another c diff episode, will d/w ID fidxomicin VS prolonged vanco taper . will also d/w fecal transplant - CT showed evidence of panniculitis . Not seen on CT scan form 03/01 report reviewed). will ask GI to evaluate finding. 2- Mildly dilated CBD on CT: seen on previous USs and Cts that date back to 2013. 3- ANGELO o n CKd: Base line 1.3-1.9 . suspect prerenal etiology from volume loss with diarrhea and vomiting . already responded to IVF . - renal US with no hydro . CT with no obstructing stones . - renal cyct needs to be followed as out pt - Non-anion gap metabolic acidosis is likely due to kidney failure. nl lactic acid. 4- Polysubstance abuse: finished ETOH detox at [facility]. - cont methadone - cont folic and thiamine 5- IDDM: - cont SSI for now - resume long acting insulin if po intake improves 6- DVT PX : heparin SQ
--- NOTE | 2019-05-24 15:41 | CONSULT ---
Consult Consult Specialty:: Nephrology Reason for Consultation:: ANGELO on CKD - History of Present Illness Chief Complaint: diarrhea History of Present Illness: Pt is a 53 year old male with pmhx of htn, ckd, gerd, dm, chronic pancreatitis, etoh abuse, and opioid dependence who was sent in for diarrhea nausea and vomiting. He was found to be in renal failure and I was called to evaluate him. He does have history of CKD. 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 He denies dysuria or hematuria. He used to take alot of motrin but stopped secondary to kidney disease. - History Source History Provided By: Patient - Past Medical History Cardio/Vascular: Yes: HTN Pulmonary: Yes: COPD Renal/: Yes: Renal Inusuff Psych: Yes: Addictions (ETOH) - Past Surgical History Past Surgical History: Yes: Appendectomy - Alcohol/Substance Use Hx Alcohol Use: Yes History of Substance Use: reports: Cocaine (Ex intranasal cocaine), Heroin (Ex intranasal heroin), Marijuana - Smoking History Smoking history: Former smoker Have you smoked in the past 12 months: No Aproximately how many cigarettes per day: 5 - Social History Usual Living Arrangement: Alone ADL: Independent Occupation: Unemployed Home Medications - Allergies Allergies/Adverse Reactions: Allergies Allergy/AdvReac Type Severity Reaction Status Date / Time No Known Allergies Allergy Verified 05/14/19 16:58 - Home Medications Home Medications: Ambulatory Orders Albuterol Sulfate Inhaler - [Ventolin HFA Inhaler -] 2 inh IH Q4H PRN #1 inh 06/01 Aspirin [Aspirin EC] 81 mg PO DAILY #14 tablet. 03/14/19 Atorvastatin Ca [Lipitor] 20 mg PO HS #14 tablet 03/14/19 Famotidine 20 mg PO BID #28 tablet 03/14/19 Ferrous Sulfate [Feosol] 325 mg PO DAILY #14 tab 03/14/19 Glipizide 5 mg PO DAILY #14 tablet 03/14/19 Lipase/Protease/Amylase [Erich Camejo 6,000 Units Capsule] 4 cap PO BID #60 capsule. 03/14/19 Lisinopril [Prinivil] 40 mg PO DAILY@0600 #14 tablet 03/14/19 Nifedipine ER [Procardia XL -] 1 tablet PO DAILY #14 tab.er.24 03/14/19 Quetiapine Fumarate [Seroquel -] 200 mg PO HS #30 tablet 03/14/19 Tamsulosin HCl [Flomax -] 0.4 mg PO DAILY@0830 #14 cap.er.24h 03/14/19 Topiramate [Topamax -] 25 mg PO BID #28 tablet 03/14/19 Insulin Glargine,Hum.rec.anlog [Lantus Solostar PEN -] 15 ml SQ HS 30 Days #1 ins 03/15/19 Insulin Sliding Scale [Novolog Vial Sliding Scale -] 1 vial SQ ACHS #2 units 06/29 Isopropyl Alcohol [Alcoh-Wipe] 1 each ACK #1 towelette 03/15/19 Methadone (Detox) [Dolophine -] 80 mg PO DAILY 05/24/19 Family Medical History Family History: Denies Review of Systems - Review of Systems Constitutional: reports: Malaise Eyes: reports: No Symptoms HENT: reports: No Symptoms Neck: reports: No Symptoms Cardiovascular: reports: No Symptoms Respiratory: reports: No Symptoms Gastrointestinal: reports: Abdominal Pain, Diarrhea, Vomiting Musculoskeletal: reports: No Symptoms Integumentary: reports: No Symptoms Neurological: reports: No Symptoms Endocrine: reports: No Symptoms Hematology/Lymphatic: reports: No Symptoms Psychiatric: reports: No Symptoms Physical Exam Vital Signs: Vital Signs Temperature 98 F 05/24/19 14:00 Pulse Rate 85 05/24/19 14:00 Respiratory Rate 18 05/24/19 14:00 Blood Pressure 116/70 05/24/19 14:00 O2 Sat by Pulse Oximetry (%) 98 05/24/19 13:02 Constitutional: Yes: Calm Eyes: Yes: Conjunctiva Clear HENT: Yes: Atraumatic Neck: Yes: Supple Cardiovascular: Yes: S1, S2 Respiratory: Yes: CTA Bilaterally Gastrointestinal: Yes: Soft, Tenderness Renal/: Yes: WNL Musculoskeletal: Yes: WNL Edema: No Neurological: Yes: Oriented Psychiatric: Yes: Oriented Labs: CBC, BMP 05/24/19 05:47 05/24/19 05:47 Laboratory Tests 05/15/19 05/23/19 05/23/19 07:20 08:05 16:45 Creatinine 1.9 H 4.2 H 4.1 H Urine Protein Urine Blood 05/23/19 05/24/19 17:50 05:47 Creatinine 3.2 H Urine Protein Trace Urine Blood Negative Imaging - Results Ultrasound: Report Reviewed Problem List - Problems (1) ANGELO (acute kidney injury) Code(s): N17.9 - ACUTE KIDNEY FAILURE, UNSPECIFIED (2) Diarrhea Code(s): R19.7 - DIARRHEA, UNSPECIFIED Assessment/Plan Current Medications Generic Name Dose Route Start Last Admin Trade Name Freq PRN Reason Stop Dose Admin Albuterol Sulfate 2 puff 05/24/19 01:23 Ventolin Hfa Inhaler - IH Q4H PRN SHORT OF BREATH/WHEEZING Atorvastatin Calcium 20 mg 05/24/19 22:00 Lipitor - PO HS REBECCA Budesonide/Formoterol Fumarate 2 puff 05/24/19 10:00 05/24/19 10:14 Symbicort 80/4.5mcg - IH Not Given BID REBECCA Ferrous Sulfate 325 mg 05/24/19 10:00 05/24/19 09:52 Feosol - PO 325 mg DAILY REBECCA Administration Folic Acid 1 mg 05/24/19 10:00 05/24/19 09:52 Folic Acid - PO 1 mg DAILY REBECCA Administration Heparin Sodium (Porcine) 5,000 unit 05/24/19 06:00 05/24/19 15:34 Heparin - SQ 5,000 unit TID REBECCA Administration Lactated Ringer's 1,000 ml in 1,000 mls @ 100 mls/hr 05/24/19 02:15 05/24/19 15:33 Lactated Ringers Solution IV 100 mls/hr ASDIR REBECCA Administration Insulin Aspart 1 vial 05/24/19 16:30 Novolog Vial Sliding Scale - SQ TIDAC [facility] Protocol Methadone HCl 80 mg 05/24/19 10:00 05/24/19 10:14 Dolophine - PO 80 mg 0600 REBECCA Administration Multivitamins/Minerals/Vitamin C 1 tab 05/24/19 10:00 05/24/19 09:52 Tab-A-Vit - PO 1 tab DAILY REBECCA Administration Pancrelipase 4 cap 05/24/19 10:00 05/24/19 09:[address] 6,000 Units Capsule PO 4 cap BID REBECCA Administration Thiamine HCl 100 mg 05/24/19 10:00 05/24/19 09:52 Vitamin B1 - PO 100 mg DAILY REBECCA Administration Vancomycin HCl 125 mg 05/24/19 06:00 02/11/20 13:41 Vancomycin Oral Solution PO 125 mg Q6HPO REBECCA Administration Impression 1. ANGELO 2. opioid dependence 3. diarrhea 4. ckd 5. dm 6. htn 7. gerd 8. 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
--- NOTE | 2019-05-24 15:55 | CON.GI ---
Consult Consult Specialty:: GI Referred by:: Hospitalist Service Reason for Consultation:: Nausea, vomiting, diarrhea - History of Present Illness Chief Complaint: Nausea, vomiting, diarrhea, abdominal pain History of Present Illness: 53M transferred from [facility] for evaluation of 1 week of nausea, vomiting, diarrhea, abdominal pain. Lives in [facility]. Has had multiple attempts at ETOH detox. Asked to evaluate if he is a candidate for fecal transplant. He states that he has had C. Diff infections in the past but is quite vague regarding this. He states that "his friend, who is an MD" has given him vancomycin previously. He also states being admitted at [facility] in February of 2019 and had a colonoscopy at that time, was treated for C. Diff. He describes a prolonged hospitalization at [facility] at which time "stents were placed because they thought it was from stones". He cannot give any other information. There is no family history of colorectal cancer / liver disease / pancreatic cancer. He denies nausea, vomiting, dysphagia, rectal bleeding, melena. CT scan on previous admission raised question of gallstones and Abd US failed to reveal stones and revealed a chronically dilated CBD of 8-9mm that appeared unchanged from a 2017 US. He was negative for HCV 12/29. Current CT scan raises question of panniculitis and chronic calcific pancreatitis. There has been no diarrhea as of yet. He complains of abdominal pain but wants to eat. - Past Medical History Cardio/Vascular: Yes: HTN Pulmonary: Yes: COPD Hepatobiliary: Yes: Other Renal/: Yes: Renal Inusuff Psych: Yes: Addictions (ETOH) - Past Surgical History Past Surgical History: Yes: Appendectomy - Alcohol/Substance Use Hx Alcohol Use: Yes History of Substance Use: reports: Cocaine (Ex intranasal cocaine), Heroin (Ex intranasal heroin), Marijuana - Smoking History Smoking history: Former smoker Have you smoked in the past 12 months: No Aproximately how many cigarettes per day: 5 - Social History Usual Living Arrangement: Alone ADL: Independent Occupation: Unemployed Place of : [employer] History of Recent Travel: No Home Medications - Allergies Allergies/Adverse Reactions: Allergies Allergy/AdvReac Type Severity Reaction Status Date / Time No Known Allergies Allergy Verified 05/14/19 16:58 - Home Medications Home Medications: Ambulatory Orders Albuterol Sulfate Inhaler - [Ventolin HFA Inhaler -] 2 inh IH Q4H PRN #1 inh 06/01 Aspirin [Aspirin EC] 81 mg PO DAILY #14 tablet.dr 03/14/19 Atorvastatin Ca [Lipitor] 20 mg PO HS #14 tablet 03/14/19 Famotidine 20 mg PO BID #28 tablet 03/14/19 Ferrous Sulfate [Feosol] 325 mg PO DAILY #14 tab 03/14/19 Glipizide 5 mg PO DAILY #14 tablet 03/14/19 Lipase/Protease/Amylase [Erich Camejo 6,000 Units Capsule] 4 cap PO BID #60 capsule. 03/14/19 Lisinopril [Prinivil] 40 mg PO DAILY@0600 #14 tablet 03/14/19 Nifedipine ER [Procardia XL -] 1 tablet PO DAILY #14 tab.er.24 03/14/19 Quetiapine Fumarate [Seroquel -] 200 mg PO HS #30 tablet 03/14/19 Tamsulosin HCl [Flomax -] 0.4 mg PO DAILY@0830 #14 cap.er.24h 03/14/19 Topiramate [Topamax -] 25 mg PO BID #28 tablet 03/14/19 Insulin Glargine,Hum.rec.anlog [Lantus Solostar PEN -] 15 ml SQ HS 30 Days #1 ins 03/15/19 Insulin Sliding Scale [Novolog Vial Sliding Scale -] 1 vial SQ ACHS #2 units 06/29 Isopropyl Alcohol [Alcoh-Wipe] 1 each ACBK #1 towelette 03/15/19 Methadone (Detox) [Dolophine -] 80 mg PO DAILY 05/24/19 Review of Systems - Review of Systems Constitutional: denies: Chills, Fever Cardiovascular: denies: Chest Pain Gastrointestinal: reports: Abdominal Pain, Diarrhea, Nausea, Vomiting. denies: Rectal Bleeding, Vomiting Blood Physical Exam-GI Vital Signs: Vital Signs Temperature 98 F 05/24/19 14:00 Pulse Rate 85 05/24/19 14:00 Respiratory Rate 18 05/24/19 14:00 Blood Pressure 116/70 05/24/19 14:00 O2 Sat by Pulse Oximetry (%) 98 05/24/19 13:02 Constitutional: Yes: Calm Eyes: No: Sclera Icterus Cardiovascular: Yes: Regular Rate and Rhythm Respiratory: Yes: CTA Bilaterally Gastrointestinal Inspection: No: Distention ...Auscultate: Yes: Normoactive Bowel Sounds ...Palpate: Yes: Soft, Tenderness (diffuse TTP) ...Percussion: No: Tympanitic Edema: No (No LE edema) Labs: CBC, BMP 05/24/19 05:47 05/24/19 05:47 INR, PTT INR 1.13 (0.83-1.09) H 05/24/19 05:47 Hepatic Panel Total Bilirubin 0.3 mg/dL (0.2-1) 05/24/19 05:47 AST 9 U/L (15-37) L 05/24/19 05:47 ALT 20 U/L (13-61) 05/24/19 05:47 Alkaline Phosphatase 109 U/L (45-117) 05/24/19 05:47 Albumin 2.9 g/dl (3.4-5.0) L 05/24/19 05:47 Problem List - Problems (1) Diarrhea Assessment/Plan: No diarrhea currently ? Panniculitis on CT scan His history if C. Diff is vague. Stool for c. diff toxin/antigen, culture, O&P when stool specimen available Obtain previous records from [facility]. He states that he was admitted there 03/01 around Thanksgiving Supportive measures ? need for ASA 81mg daily. Does not give cardiac history. Patient on pancreatic enzymes, yet does not have any medical care. Try to obtain records regarding who prescribesd this for him. He will need medical care arragned where he lives. Poor follow-up. Code(s): R19.7 - DIARRHEA, UNSPECIFIED
[2019-05-24 17:35] LABS: COCAINE, UR NEGATIVE ng/ml (CUTOFF=300); OPIATES, URI NEGATIVE ng/ml (CUTOFF=300); PHENCYCLIDINE,URINE NEGATIVE ng/ml (CUTOFF=25); URINE AMPHETAMINES NEGATIVE ng/ml (CUTOFF=500); URINE BARBITURATES NEGATIVE ng/ml (CUTOFF=200)
[2019-05-24 17:39] LABS: URINE BENZODIAZEPINES POSITIVE ng/ml (CUTOFF=200)
[2019-05-24 17:40] LABS: METHADONE, UR POSITIVE ng/ml (CUTOFF=300)
[2019-05-24] MEDS ORDERED: MELATONIN 5 MG TABLETS PO PRN (18:22)
--- NOTE | 2019-05-24 18:36 | PN ---
Physical Exam: SUBJECTIVE: Patient seen and examined at the bedside. Continues to complain of abdominal pain though notes it is mildly improves. States he has not had any more episodes of diarrhea since this morning when his stool were more formed and no further episodes of vomiting. Wants to eat. Denies cp, sob, fever, chills , headaches, dizziness, lightheadedness. OBJECTIVE: Vital Signs Period Temp Pulse Resp BP Sys/Lopez Pulse Ox Last 24 Hr 97.9 F-98.4 F 70-90 16-20 100-148/58-98 96-99 GENERAL: The patient is awake, alert, and fully oriented, in mild acute distress. EYES: PERRL, extraocular movements intact, sclera anicteric, conjunctiva clear. ENT: Oropharynx clear without exudates, dry mucous membranes. LUNGS: Breath sounds equal, clear to auscultation bilaterally, no wheezes, no crackles, no accessory muscle use. HEART: Regular rate and rhythm, S1, S2 without murmur, rub. ABDOMEN: Soft, tender diffusely, nondistended, normoactive bowel sounds, rebound tenderness present, no masses. EXTREMITIES: 2+ pulses, warm, well-perfused, no edema. NEUROLOGICAL: Cranial nerves II through XII grossly intact. 5/5 muscle strength bilaterally upper and lower extremities. PSYCH: Normal mood, normal affect. SKIN: varicose veins and hyperpigmentation of the feet. Laboratory Results - last 24 hr 05/23/19 05/23/19 05/23/19 16:45 16:45 17:50 WBC RBC Hgb Hct MCV MCH MCHC RDW Plt Count MPV Absolute Neuts (auto) Neutrophils % Neutrophils % (Manual) 40.0 L Band Neutrophils % 19.0 Lymphocytes % Lymphocytes % (Manual) 33.0 Monocytes % Monocytes % (Manual) 4 Eosinophils % Eosinophils % (Manual) 0.0 Basophils % Basophils % (Manual) 0.0 Myelocytes % (Man) 2 Promyelocytes % (Man) Blast Cells % (Manual) Nucleated RBC % Metamyelocytes 2 Hypochromia Platelet Estimate Adequate Polychromasia Poikilocytosis Anisocytosis Microcytosis Macrocytosis PT with INR INR PTT (Actin FS) Sodium 140 Potassium 4.9 Chloride 118 H Carbon Dioxide 17 L Anion Gap 6 L BUN 56.4 H Creatinine 4.1 H Est GFR (CKD-EPI)AfAm 17.76 Est GFR (CKD-EPI)NonAf 15.32 POC Glucometer Random Glucose 140 H Hemoglobin A1c % Lactic Acid Calcium 8.6 Total Bilirubin 0.3 AST 23 ALT 25 Alkaline Phosphatase 134 H Creatine Kinase Troponin I Total Protein 7.5 Albumin 3.3 L Lipase 63 L Urine Color Yellow Urine Appearance Clear Urine pH 5.0 D Ur Specific [place] 1.016 Urine Protein Trace Urine Glucose (UA) Negative Urine Ketones Negative Urine Blood Negative Urine Nitrite Negative Urine Bilirubin Negative Urine Urobilinogen 0.2 Ur Leukocyte Esterase Negative Urine WBC (Auto) 2 Urine RBC (Auto) 2 Urine Casts (Auto) 4 U Epithel Cells (Auto) 1.6 Urine Bacteria (Auto) 4.3 Opiates Screen Methadone Screen Barbiturate Screen Phencyclidine Screen Ur Amphetamines Screen MDMA (Ecstasy) Screen Benzodiazepines Screen Cocaine Screen U Marijuana (THC) Screen 05/23/19 05/23/19 05/24/19 22:13 22:13 05:47 WBC 9.9 RBC 3.09 L Hgb 9.8 L Hct 30.0 L D MCV 96.9 H MCH 31.9 MCHC 32.9 RDW 15.1 Plt Count 147 D MPV 9.1 Absolute Neuts (auto) 5.8 Neutrophils % 58.1 Neutrophils % (Manual) 60.0 D Band Neutrophils % 0.0 Lymphocytes % 22.8 D Lymphocytes % (Manual) 23.8 D Monocytes % 17.6 H Monocytes % (Manual) 13 H D Eosinophils % 1.1 Eosinophils % (Manual) 0.0 Basophils % 0.4 Basophils % (Manual) 0.0 Myelocytes % (Man) 2 Promyelocytes % (Man) 0 Blast Cells % (Manual) 0 Nucleated RBC % 0 Metamyelocytes 0 D Hypochromia 0 Platelet Estimate Normal Polychromasia 0 Poikilocytosis 0 Anisocytosis 0 Microcytosis 0 Macrocytosis 0 PT with INR INR PTT (Actin FS) Sodium Potassium Chloride Carbon Dioxide Anion Gap BUN Creatinine Est GFR (CKD-EPI)AfAm Est GFR (CKD-EPI)NonAf POC Glucometer Random Glucose Hemoglobin A1c % Lactic Acid 0.6 Calcium Total Bilirubin AST ALT Alkaline Phosphatase Creatine Kinase 32 Troponin I < 0.02 Total Protein Albumin Lipase Urine Color Urine Appearance Urine pH Ur Specific [place] Urine Protein Urine Glucose (UA) Urine Ketones Urine Blood Urine Nitrite Urine Bilirubin Urine Urobilinogen Ur Leukocyte Esterase Urine WBC (Auto) Urine RBC (Auto) Urine Casts (Auto) U Epithel Cells (Auto) Urine Bacteria (Auto) Opiates Screen Methadone Screen Barbiturate Screen Phencyclidine Screen Ur Amphetamines Screen MDMA (Ecstasy) Screen Benzodiazepines Screen Cocaine Screen U Marijuana (THC) Screen 05/24/19 05/24/19 05/24/19 05:47 05:47 05:47 WBC RBC Hgb Hct MCV MCH MCHC RDW Plt Count MPV Absolute Neuts (auto) Neutrophils % Neutrophils % (Manual) Band Neutrophils % Lymphocytes % Lymphocytes % (Manual) Monocytes % Monocytes % (Manual) Eosinophils % Eosinophils % (Manual) Basophils % Basophils % (Manual) Myelocytes % (Man) Promyelocytes % (Man) Blast Cells % (Manual) Nucleated RBC % Metamyelocytes Hypochromia Platelet Estimate Polychromasia Poikilocytosis Anisocytosis Microcytosis Macrocytosis PT with INR 13.40 H INR 1.13 H PTT (Actin FS) 30.5 Sodium 142 Potassium 4.2 Chloride 122 H Carbon Dioxide 17 L Anion Gap 3 L BUN 52.2 H Creatinine 3.2 H Est GFR (CKD-EPI)AfAm 23.96 Est GFR (CKD-EPI)NonAf 20.67 POC Glucometer Random Glucose 115 H Hemoglobin A1c % 8.0 H Lactic Acid Calcium 8.3 L Total Bilirubin 0.3 AST 9 L ALT 20 Alkaline Phosphatase 109 Creatine Kinase Troponin I Total Protein 6.1 L Albumin 2.9 L Lipase Urine Color Urine Appearance Urine pH Ur Specific [place] Urine Protein Urine Glucose (UA) Urine Ketones Urine Blood Urine Nitrite Urine Bilirubin Urine Urobilinogen Ur Leukocyte Esterase Urine WBC (Auto) Urine RBC (Auto) Urine Casts (Auto) U Epithel Cells (Auto) Urine Bacteria (Auto) Opiates Screen Methadone Screen Barbiturate Screen Phencyclidine Screen Ur Amphetamines Screen MDMA (Ecstasy) Screen Benzodiazepines Screen Cocaine Screen U Marijuana (THC) Screen 05/24/19 05/24/19 10:44 15:48 WBC RBC Hgb Hct MCV MCH MCHC RDW Plt Count MPV Absolute Neuts (auto) Neutrophils % Neutrophils % (Manual) Band Neutrophils % Lymphocytes % Lymphocytes % (Manual) Monocytes % Monocytes % (Manual) Eosinophils % Eosinophils % (Manual) Basophils % Basophils % (Manual) Myelocytes % (Man) Promyelocytes % (Man) Blast Cells % (Manual) Nucleated RBC % Metamyelocytes Hypochromia Platelet Estimate Polychromasia Poikilocytosis Anisocytosis Microcytosis Macrocytosis PT with INR INR PTT (Actin FS) Sodium Potassium Chloride Carbon Dioxide Anion Gap BUN Creatinine Est GFR (CKD-EPI)AfAm Est GFR (CKD-EPI)NonAf POC Glucometer 133 Random Glucose Hemoglobin A1c % Lactic Acid Calcium Total Bilirubin AST ALT Alkaline Phosphatase Creatine Kinase Troponin I Total Protein Albumin Lipase Urine Color Urine Appearance Urine pH Ur Specific [place] Urine Protein Urine Glucose (UA) Urine Ketones Urine Blood Urine Nitrite Urine Bilirubin Urine Urobilinogen Ur Leukocyte Esterase Urine WBC (Auto) Urine RBC (Auto) Urine Casts (Auto) U Epithel Cells (Auto) Urine Bacteria (Auto) Opiates Screen Negative Methadone Screen Positive A* Barbiturate Screen Negative Phencyclidine Screen Negative Ur Amphetamines Screen Negative MDMA (Ecstasy) Screen Negative Benzodiazepines Screen Positive A* Cocaine Screen Negative U Marijuana (THC) Screen Negative Active Medications Generic Name Dose Route Start Last Admin Trade Name Freq PRN Reason Stop Dose Admin Albuterol Sulfate 2 puff 05/24/19 01:23 Ventolin Hfa Inhaler - IH Q4H PRN SHORT OF BREATH/WHEEZING Aspirin 81 mg 05/25/19 10:00 Ecotrin - PO DAILY REBECCA Atorvastatin Calcium 20 mg 05/24/19 22:00 Lipitor - PO HS REBECCA Budesonide/Formoterol Fumarate 2 puff 05/24/19 10:00 05/24/19 10:14 Symbicort 80/4.5mcg - IH Not Given BID REBECCA Ferrous Sulfate 325 mg 05/24/19 10:00 05/24/19 09:52 Feosol - PO 325 mg DAILY REBECCA Administration Folic Acid 1 mg 05/24/19 10:00 05/24/19 09:52 Folic Acid - PO 1 mg DAILY REBECCA Administration Heparin Sodium (Porcine) 5,000 unit 05/24/19 06:00 05/24/19 15:34 Heparin - SQ 5,000 unit TID REBECCA Administration Lactated Ringer's 1,000 ml in 1,000 mls @ 100 mls/hr 05/24/19 02:15 05/24/19 15:33 Lactated Ringers Solution IV 100 mls/hr ASDIR REBECCA Administration Insulin Aspart 1 vial 05/24/19 16:30 05/24/19 18:08 Novolog Vial Sliding Scale - SQ Not Given TIDAC [facility] Protocol Melatonin 5 mg 05/24/19 18:22 Melatonin PO HS PRN INSOMNIA Methadone HCl 80 mg 05/24/19 10:00 05/24/19 10:14 Dolophine - PO 80 mg 0600 REBECCA Administration Multivitamins/Minerals/Vitamin C 1 tab 05/24/19 10:00 05/24/19 09:52 Tab-A-Vit - PO 1 tab DAILY REBECCA Administration Pancrelipase 4 cap 05/24/19 10:00 05/24/19 09:[address] 6,000 Units Capsule PO 4 cap BID REBECCA Administration Quetiapine Fumarate 200 mg 05/24/19 22:00 Seroquel - PO HS REBECCA Tamsulosin HCl 0.4 mg 05/25/19 08:30 Flomax - PO DAILY@0830 REBECCA Thiamine HCl 100 mg 05/24/19 10:00 05/24/19 09:52 Vitamin B1 - PO 100 mg DAILY REBECCA Administration Topiramate 25 mg 05/24/19 22:00 Topamax - PO BID REBECCA Vancomycin HCl 125 mg 05/24/19 06:00 05/24/19 18:07 Vancomycin Oral Solution PO 125 mg Q6HPO REBECCA Administration Imaging CT A/P: Mildly increased fluid is seen within the colon and small bowel without definite associated wall edema - ? diarrheal illness. In comparison to a prior CT study of 02/18/2019 apparent interval development of slightly increased mesenteric density is seen centrally with associated development of several slightly prominent mesenteric lymph nodes in the same region. This appearance may be on the basis of clinical or subclinical mesenteric panniculitis. Correlation with 2 month follow-up CT is suggested to document stability/ resolution and lack of developing pathology. Chronic calcific pancreatitis is again noted. As on prior studies there is mild chronic common bile duct dilatation. ASSESSMENT/PLAN: Dane Whitmore 53 year old male with a past medical history of HTN, CKD, GERD, type 2 DM, chronic pancreatitis & CBD dilatation, EtOH abuse, opioid depenence on 80mg methadone ([facility] in [place]), COPD admitted for acute diarrheal illness. Acute diarrheal illness likely 2/2 c. diff colitis - CT A/P as above - f/u C. Diff, stool studies - oral vancomycin pending results of stool studies - zofran prn for nausea - tylenol for pain control - monitor electrolytes & replete as needed - isolation precautions - ID consulted, recs appreciated - GI consulted, recs appreciated - will attempt to obtain records from [facility] - if c.diff positive will need discussion with a fecal transplant center in the setting of multiple episodes of c diff ANGELO on CKD - renal U/S noting medical renal disease, small simple renal cyst, no stones or hydronephorsis - likely pre-renal - continue IVF - avoid nephrotoxic agents - Nephro consulted, recs appreciated Chronic pancreatitis - seen on prior studies - lipase low - continue Creon therapy CBD dilatation, chronic - isolated elevated alk phos - seen on prior studies - no calculi noted HTN - orthostatic hypotension standing 125/84-- sitting 109/72-- standing 111/77 - holding home anti-htn meds in light of (procardia XL, lisinipril 40mg daily), can restart when clinically appropriate GERD - pepcid home dose - continue to monitor COPD -continue home albuterol inhaler prn DM2 - BGMs ACHS - ISS - holding home oral agents - A1c 8.0 EtOH abuse - s/p libirum detox at [facility] - no signs of withdrawal on this visit - thiamine, folic acid, multivitamin - fall precautions Opioid dependence - On 80mg daily methadone - Utox noting methadone and benzo BPH - holding home flomax 2/2 orthostatic hypotension PPX - heparin 5000 units subq tid FEN - LR @ 100cc/hr - continue to monitor electrolytes and replete as necessary - clear liquids Dispo - continue to monitor on Med-surg Visit type - Emergency Visit Emergency Visit: Yes ED Registration Date: 05/23/19 Care time: The patient presented to the Emergency Department on the above date and was hospitalized for further evaluation of their emergent condition. - New Patient This patient is new to me today: Yes Date on this admission: 05/24/19 - Critical Care Critical Care patient: No
[2019-05-24] MEDS ORDERED: SIMETHICONE 80 MG TAB.CHEW (FP) PO PRN (20:50)
[2019-05-24] MEDS: MELATONIN 5 MG TABLETS PO PRN (21:50)
[2019-05-24] MEDS: ATORVASTATIN CA 20 MG TABLET (FP) PO SCH (21:50)
[2019-05-24] MEDS: QUEtiapine FUMARATE 200 MG TABLET PO SCH (21:51)
[2019-05-24] MEDS: TOPIRAMATE 25 MG TABLET (FP) PO SCH (21:51)
[2019-05-24] MEDS ORDERED: FAMOTIDINE 20 MG TABLET PO ONE (23:32)
[2019-05-25] MEDS: VANCOMYCIN 250 MG/5 ML ORAL SOLUTION PO SCH ×4 (01:36→17:42)
--- NOTE | 2019-05-25 06:11 | PN ---
Physical Exam: SUBJECTIVE: Patient seen and examined at the bedside. Noted that he had a solid stool bowel movement overnight which was collected for analysis. Also noted that he was having reflux type discomfort overnight and wanted to eat. Otherwise , denied cp, sob, fever, chills, dizziness, lightheadedness, headaches. OBJECTIVE: Vital Signs Period Temp Pulse Resp BP Sys/Lopez Pulse Ox Last 24 Hr 97.5 F-98.4 F 70-97 16-20 112-148/58-99 98-99 GENERAL: The patient is awake, alert, and fully oriented, in mild acute distress. EYES: PERRL, extraocular movements intact, sclera anicteric, conjunctiva clear. ENT: Oropharynx clear without exudates, dry mucous membranes. LUNGS: Breath sounds equal, clear to auscultation bilaterally, no wheezes, no crackles, no accessory muscle use. HEART: Regular rate and rhythm, S1, S2 without murmur, rub. ABDOMEN: Soft, tender diffusely, nondistended, normoactive bowel sounds, rebound tenderness present, no masses. EXTREMITIES: 2+ pulses, warm, well-perfused, no edema. NEUROLOGICAL: Cranial nerves II through XII grossly intact. 5/5 muscle strength bilaterally upper and lower extremities. PSYCH: Normal mood, normal affect. SKIN: varicose veins and hyperpigmentation of the feet. Laboratory Results - last 24 hr 05/23/19 05/24/19 05/24/19 16:45 05:47 05:47 WBC 9.9 RBC 3.09 L Hgb 9.8 L Hct 30.0 L D MCV 96.9 H MCH 31.9 MCHC 32.9 RDW 15.1 Plt Count 147 D MPV 9.1 Absolute Neuts (auto) 5.8 Neutrophils % 58.1 Neutrophils % (Manual) 60.0 D Band Neutrophils % 0.0 Lymphocytes % 22.8 D Lymphocytes % (Manual) 23.8 D Monocytes % 17.6 H Monocytes % (Manual) 13 H D Eosinophils % 1.1 Eosinophils % (Manual) 0.0 Basophils % 0.4 Basophils % (Manual) 0.0 Myelocytes % (Man) 2 Promyelocytes % (Man) 0 Blast Cells % (Manual) 0 Nucleated RBC % 0 Metamyelocytes 0 D Hypochromia 0 Platelet Estimate Normal Polychromasia 0 Poikilocytosis 0 Anisocytosis 0 Microcytosis 0 Macrocytosis 0 PT with INR INR PTT (Actin FS) Sodium 140 142 Potassium 4.9 4.2 Chloride 118 H 122 H Carbon Dioxide 17 L 17 L Anion Gap 6 L 3 L BUN 56.4 H 52.2 H Creatinine 4.1 H 3.2 H Est GFR (CKD-EPI)AfAm 17.76 23.96 Est GFR (CKD-EPI)NonAf 15.32 20.67 POC Glucometer Random Glucose 140 H 115 H Hemoglobin A1c % Calcium 8.6 8.3 L Total Bilirubin 0.3 0.3 AST 23 9 L ALT 25 20 Alkaline Phosphatase 134 H 109 Total Protein 7.5 6.1 L Albumin 3.3 L 2.9 L Lipase 63 L Stool Occult Blood Opiates Screen Methadone Screen Barbiturate Screen Phencyclidine Screen Ur Amphetamines Screen MDMA (Ecstasy) Screen Benzodiazepines Screen Cocaine Screen U Marijuana (THC) Screen 05/24/19 05/24/19 05/24/19 05:47 05:47 10:44 WBC RBC Hgb Hct MCV MCH MCHC RDW Plt Count MPV Absolute Neuts (auto) Neutrophils % Neutrophils % (Manual) Band Neutrophils % Lymphocytes % Lymphocytes % (Manual) Monocytes % Monocytes % (Manual) Eosinophils % Eosinophils % (Manual) Basophils % Basophils % (Manual) Myelocytes % (Man) Promyelocytes % (Man) Blast Cells % (Manual) Nucleated RBC % Metamyelocytes Hypochromia Platelet Estimate Polychromasia Poikilocytosis Anisocytosis Microcytosis Macrocytosis PT with INR 13.40 H INR 1.13 H PTT (Actin FS) 30.5 Sodium Potassium Chloride Carbon Dioxide Anion Gap BUN Creatinine Est GFR (CKD-EPI)AfAm Est GFR (CKD-EPI)NonAf POC Glucometer 133 Random Glucose Hemoglobin A1c % 8.0 H Calcium Total Bilirubin AST ALT Alkaline Phosphatase Total Protein Albumin Lipase Stool Occult Blood Opiates Screen Methadone Screen Barbiturate Screen Phencyclidine Screen Ur Amphetamines Screen MDMA (Ecstasy) Screen Benzodiazepines Screen Cocaine Screen U Marijuana (THC) Screen 05/24/19 05/24/19 05/24/19 15:48 18:06 20:57 WBC RBC Hgb Hct MCV MCH MCHC RDW Plt Count MPV Absolute Neuts (auto) Neutrophils % Neutrophils % (Manual) Band Neutrophils % Lymphocytes % Lymphocytes % (Manual) Monocytes % Monocytes % (Manual) Eosinophils % Eosinophils % (Manual) Basophils % Basophils % (Manual) Myelocytes % (Man) Promyelocytes % (Man) Blast Cells % (Manual) Nucleated RBC % Metamyelocytes Hypochromia Platelet Estimate Polychromasia Poikilocytosis Anisocytosis Microcytosis Macrocytosis PT with INR INR PTT (Actin FS) Sodium Potassium Chloride Carbon Dioxide Anion Gap BUN Creatinine Est GFR (CKD-EPI)AfAm Est GFR (CKD-EPI)NonAf POC Glucometer 136 199 Random Glucose Hemoglobin A1c % Calcium Total Bilirubin AST ALT Alkaline Phosphatase Total Protein Albumin Lipase Stool Occult Blood Opiates Screen Negative Methadone Screen Positive A* Barbiturate Screen Negative Phencyclidine Screen Negative Ur Amphetamines Screen Negative MDMA (Ecstasy) Screen Negative Benzodiazepines Screen Positive A* Cocaine Screen Negative U Marijuana (THC) Screen Negative 05/24/19 23:00 WBC RBC Hgb Hct MCV MCH MCHC RDW Plt Count MPV Absolute Neuts (auto) Neutrophils % Neutrophils % (Manual) Band Neutrophils % Lymphocytes % Lymphocytes % (Manual) Monocytes % Monocytes % (Manual) Eosinophils % Eosinophils % (Manual) Basophils % Basophils % (Manual) Myelocytes % (Man) Promyelocytes % (Man) Blast Cells % (Manual) Nucleated RBC % Metamyelocytes Hypochromia Platelet Estimate Polychromasia Poikilocytosis Anisocytosis Microcytosis Macrocytosis PT with INR INR PTT (Actin FS) Sodium Potassium Chloride Carbon Dioxide Anion Gap BUN Creatinine Est GFR (CKD-EPI)AfAm Est GFR (CKD-EPI)NonAf POC Glucometer Random Glucose Hemoglobin A1c % Calcium Total Bilirubin AST ALT Alkaline Phosphatase Total Protein Albumin Lipase Stool Occult Blood Negative Opiates Screen Methadone Screen Barbiturate Screen Phencyclidine Screen Ur Amphetamines Screen MDMA (Ecstasy) Screen Benzodiazepines Screen Cocaine Screen U Marijuana (THC) Screen Active Medications Generic Name Dose Route Start Last Admin Trade Name Freq PRN Reason Stop Dose Admin Albuterol Sulfate 2 puff 05/24/19 01:23 Ventolin Hfa Inhaler - IH Q4H PRN SHORT OF BREATH/WHEEZING Aspirin 81 mg 05/25/19 10:00 Ecotrin - PO DAILY REBECCA Atorvastatin Calcium 20 mg 05/24/19 22:00 05/24/19 21:50 Lipitor - PO 20 mg HS REBECCA Administration Budesonide/Formoterol Fumarate 2 puff 05/24/19 10:00 05/24/19 21:52 Symbicort 80/4.5mcg - IH 2 puff BID REBECCA Administration Ferrous Sulfate 325 mg 05/24/19 10:00 05/24/19 09:52 Feosol - PO 325 mg DAILY REBECCA Administration Folic Acid 1 mg 05/24/19 10:00 05/24/19 09:52 Folic Acid - PO 1 mg DAILY REBECCA Administration Heparin Sodium (Porcine) 5,000 unit 05/24/19 06:00 05/24/19 21:51 Heparin - SQ 5,000 unit TID REBECCA Administration Lactated Ringer's 1,000 ml in 1,000 mls @ 100 mls/hr 05/24/19 02:15 05/24/19 15:33 Lactated Ringers Solution IV 100 mls/hr ASDIR REBECCA Administration Insulin Aspart 1 vial 05/24/19 16:30 05/24/19 18:08 Novolog Vial Sliding Scale - SQ Not Given TIDAC [facility] Protocol Melatonin 10 mg 05/24/19 22:00 05/24/19 21:50 Melatonin PO 10 mg HS PRN Administration INSOMNIA Methadone HCl 80 mg 05/24/19 10:00 05/24/19 10:14 Dolophine - PO 80 mg 0600 [facility] Administration Multivitamins/Minerals/Vitamin C 1 tab 05/24/19 10:00 05/24/19 09:52 Tab-A-Vit - PO 1 tab DAILY REBECCA Administration Pancrelipase 4 cap 05/24/19 10:00 05/24/19 21:[address] 6,000 Units Capsule PO 4 cap BID REBECCA Administration Quetiapine Fumarate 200 mg 05/24/19 22:00 05/24/19 21:51 Seroquel - PO 200 mg HS REBECCA Administration Simethicone 80 mg 05/24/19 20:50 05/24/19 21:50 Mylicon - PO 80 mg Q4H PRN Administration GAS Tamsulosin HCl 0.4 mg 05/25/19 08:30 Flomax - PO DAILY@0830 REBECCA Thiamine HCl 100 mg 05/24/19 10:00 05/24/19 09:52 Vitamin B1 - PO 100 mg DAILY REBECCA Administration Topiramate 25 mg 05/24/19 22:00 05/24/19 21:51 Topamax - PO 25 mg BID REBECCA Administration Vancomycin HCl 125 mg 05/24/19 06:00 05/25/19 01:36 Vancomycin Oral Solution PO 125 mg Q6HPO REBECCA Administration Imaging CT A/P: Mildly increased fluid is seen within the colon and small bowel without definite associated wall edema - ? diarrheal illness. In comparison to a prior CT study of 02/18/2019 apparent interval development of slightly increased mesenteric density is seen centrally with associated development of several slightly prominent mesenteric lymph nodes in the same region. This appearance may be on the basis of clinical or subclinical mesenteric panniculitis. Correlation with 2 month follow-up CT is suggested to document stability/ resolution and lack of developing pathology. Chronic calcific pancreatitis is again noted. As on prior studies there is mild chronic common bile duct dilatation. ASSESSMENT/PLAN: Dane Whitmore 53 year old male with a past medical history of HTN, CKD, GERD, type 2 DM, chronic pancreatitis & CBD dilatation, EtOH abuse, opioid depenence on 80mg methadone ([facility] in [place]), COPD admitted for acute diarrheal illness. Acute diarrheal illness likely 2/2 c. diff colitis - CT A/P as above - f/u C. Diff, stool studies - oral vancomycin pending results of stool studies - zofran prn for nausea - tylenol for pain control - monitor electrolytes & replete as needed - isolation precautions - ID consulted, recs appreciated - GI consulted, recs appreciated - will attempt to obtain records from [facility] - if c.diff positive will need discussion with a fecal transplant center in the setting of multiple episodes of c diff ANGELO on CKD - renal U/S noting medical renal disease, small simple renal cyst, no stones or hydronephorsis - likely pre-renal - continue IVF - avoid nephrotoxic agents - Nephro consulted, recs appreciated Chronic pancreatitis - seen on prior studies - lipase low - continue Creon therapy CBD dilatation, chronic - isolated elevated alk phos - seen on prior studies - no calculi noted HTN - orthostatic hypotension standing 125/84-- sitting 109/72-- standing 111/77 - holding home anti-htn meds in light of (procardia XL, lisinipril 40mg daily), can restart when clinically appropriate GERD - pepcid home dose - continue to monitor COPD -continue home albuterol inhaler prn DM2 - BGMs ACHS - ISS - holding home oral agents - A1c 8.0 EtOH abuse - s/p libirum detox at [facility] - no signs of withdrawal on this visit - thiamine, folic acid, multivitamin - fall precautions Opioid dependence - On 80mg daily methadone - Utox noting methadone and benzo BPH - holding home flomax 2/2 orthostatic hypotension PPX - heparin 5000 units subq tid FEN - LR @ 100cc/hr - continue to monitor electrolytes and replete as necessary - clear liquids Dispo - continue to monitor on Med-surg Visit type - Emergency Visit Emergency Visit: Yes ED Registration Date: 05/23/19 Care time: The patient presented to the Emergency Department on the above date and was hospitalized for further evaluation of their emergent condition. - New Patient This patient is new to me today: No - Critical Care Critical Care patient: No
[2019-05-25] MEDS: INSULIN SLIDING SCALE (NOVOLOG) 1 VIAL SQ SCH ×3 (06:59→17:38)
[2019-05-25] MEDS: HEPARIN NA (PORCINE) 5,000 UNITS/ML 1ML VIAL SQ SCH ×3 (06:59→21:36)
[2019-05-25] MEDS: METHADONE HCL 40 MG DISPERSABLE TABLET PO SCH (06:59)
[2019-05-25 08:32] LABS: BASO % 0.4 % (0-2.0); EOS % 0.9 % (0-4.5); HEMOGLOBIN 10.1 GM/dL (11.7-16.9); LYMPH % 21.1 % (8-40); MCH 32.3 pg (25.7-33.7); MCHC 33.5 g/dl (32.0-35.9); MEAN CELL VOLUME 96.4 fl (80-96); MEAN PLT VOLUME 9.5 fl (7.5-11.1); NEUT % 62.6 % (42.8-82.8); PLATELET COUNT 167 K/MM3 (134-434); RBC 3.11 M/mm3 (4.00-5.60); RDW 14.7 % (11.9-15.9); WHITE BLOOD COUNT 9.9 K/mm3 (4.0-10.0)
[2019-05-25 08:55] LABS: ALBUMIN 2.8 g/dl (3.4-5.0); BILIRUBIN,TOTAL 0.2 mg/dL (0.2-1); BLOOD UREA NITROGEN 29.6 mg/dL (7-18); CALCIUM 8.3 mg/dL (8.5-10.1); CREATININE 2.2 mg/dL (0.55-1.3); MAGNESIUM 1.8 mg/dL (1.8-2.4); POTASSIUM 4.1 mmol/L (3.5-5.1); TOT PROT 6.2 g/dl (6.4-8.2)
[2019-05-25] MEDS ORDERED: ASPIRIN COATED 81 MG TABLET.EC PO SCH (10:00)
[2019-05-25] MEDS ORDERED: FAMOTIDINE 20 MG TABLET PO SCH (10:00)
--- NOTE | 2019-05-25 10:02 | PN ---
Teaching Attending Note Name of Resident: Jovani Mcgraw ATTENDING PHYSICIAN STATEMENT I saw and evaluated the patient. I reviewed the resident's note and discussed the case with the resident. I agree with the resident's findings and plan as documented. SUBJECTIVE: Patient has no further diarrhea, tolerating diet well. c/o having Left foot pain. OBJECTIVE: Vital Signs Temperature 97.3 F L 05/25/19 06:00 Pulse Rate 80 05/25/19 06:00 Respiratory Rate 20 05/25/19 06:00 Blood Pressure 133/56 L 05/25/19 06:00 O2 Sat by Pulse Oximetry (%) 98 05/24/19 21:00 GENERAL: The patient is awake, alert, and fully oriented, in no acute distress. HEAD: Normal with no signs of trauma. EYES: PERRL, extraocular movements intact, sclera anicteric, conjunctiva clear. ENT: Ears normal, oropharynx clear without exudates, moist mucous membranes. NECK: Trachea midline, full range of motion, supple. LUNGS: Breath sounds equal, clear to auscultation bilaterally, no wheezes, no crackles, no accessory muscle use. HEART: Regular rate and rhythm, S1, S2 without murmur, rub or gallop. ABDOMEN: Soft, NT, ND, normoactive bowel sounds, no guarding, no rebound, no masses appreciated. EXTREMITIES: 2+ pulses, warm, well-perfused, no edema. NEUROLOGICAL: Cranial nerves II through XII grossly intact. Normal speech, gait not observed. PSYCH: Normal mood, normal affect. SKIN: Warm, dry, normal turgor, no rashes or lesions noted CBCD WBC 9.9 K/mm3 (4.0-10.0) 05/25/19 08:05 RBC 3.11 M/mm3 (4.00-5.60) L 05/25/19 08:05 Hgb 10.1 GM/dL (11.7-16.9) L 05/25/19 08:05 Hct 30.0 % (35.4-49) L 05/25/19 08:05 MCV 96.4 fl (80-96) H 05/25/19 08:05 MCHC 33.5 g/dl (32.0-35.9) 05/25/19 08:05 RDW 14.7 % (11.9-15.9) 05/25/19 08:05 Plt Count 167 K/MM3 (134-434) 05/25/19 08:05 MPV 9.5 fl (7.5-11.1) 05/25/19 08:05 CMP Sodium 146 mmol/L (136-145) H 05/25/19 08:05 Potassium 4.1 mmol/L (3.5-5.1) 05/25/19 08:05 Chloride 123 mmol/L (98-107) H 05/25/19 08:05 Carbon Dioxide 18 mmol/L (21-32) L 05/25/19 08:05 Anion Gap 5 MMOL/L (8-16) L 05/25/19 08:05 BUN 29.6 mg/dL (7-18) H 05/25/19 08:05 Creatinine 2.2 mg/dL (0.55-1.3) H 05/25/19 08:05 Random Glucose 150 mg/dL (74-106) H 05/25/19 08:05 Calcium 8.3 mg/dL (8.5-10.1) L 05/25/19 08:05 Total Bilirubin 0.2 mg/dL (0.2-1) 05/25/19 08:05 AST 15 U/L (15-37) 05/25/19 08:05 ALT 24 U/L (13-61) 05/25/19 08:05 Alkaline Phosphatase 117 U/L (45-117) 05/25/19 08:05 Total Protein 6.2 g/dl (6.4-8.2) L 05/25/19 08:05 Albumin 2.8 g/dl (3.4-5.0) L 05/25/19 08:05 CARDIAC ENZYMES Creatine Kinase 32 U/L (26-308) 05/23/19 22:13 Troponin I < 0.02 ng/ml (0.00-0.05) 05/23/19 22:13 Current Medications Generic Name Dose Route Start Last Admin Trade Name Freq PRN Reason Stop Dose Admin Albuterol Sulfate 2 puff 05/24/19 01:23 Ventolin Hfa Inhaler - IH Q4H PRN SHORT OF BREATH/WHEEZING Aspirin 81 mg 05/25/19 10:00 Ecotrin - PO DAILY REBECCA Atorvastatin Calcium 20 mg 05/24/19 22:00 05/24/19 21:50 Lipitor - PO 20 mg HS REBECCA Administration Budesonide/Formoterol Fumarate 2 puff 05/24/19 10:00 05/24/19 21:52 Symbicort 80/4.5mcg - IH 2 puff BID REBECCA Administration Ferrous Sulfate 325 mg 05/24/19 10:00 05/24/19 09:52 Feosol - PO 325 mg DAILY REBECCA Administration Folic Acid 1 mg 05/24/19 10:00 05/24/19 09:52 Folic Acid - PO 1 mg DAILY REBECCA Administration Heparin Sodium (Porcine) 5,000 unit 05/24/19 06:00 05/25/19 06:59 Heparin - SQ 5,000 unit TID REBECCA Administration Insulin Aspart 1 vial 05/24/19 16:30 05/25/19 06:59 Novolog Vial Sliding Scale - SQ Not Given TIDAC [facility] Protocol Melatonin 10 mg 05/24/19 22:00 05/24/19 21:50 Melatonin PO 10 mg HS PRN Administration INSOMNIA Methadone HCl 80 mg 05/24/19 10:00 05/25/19 06:59 Dolophine - PO 80 mg 0600 REBE[facility] Administration Multivitamins/Minerals/Vitamin C 1 tab 05/24/19 10:00 05/24/19 09:52 Tab-A-Vit - PO 1 tab DAILY REBE[facility] Administration Pancrelipase 4 cap 05/24/19 10:00 05/24/19 21:[address] 6,000 Units Capsule PO 4 cap BID REBECCA Administration Pantoprazole Sodium 40 mg 05/25/19 10:00 Protonix - PO DAILY REBECCA Quetiapine Fumarate 200 mg 05/24/19 22:00 05/24/19 21:51 Seroquel - PO 200 mg HS REBECCA Administration Simethicone 80 mg 05/24/19 20:50 05/24/19 21:50 Mylicon - PO 80 mg Q4H PRN Administration GAS Tamsulosin HCl 0.4 mg 05/25/19 08:30 Flomax - PO DAILY@0830 REBECCA Thiamine HCl 100 mg 05/24/19 10:00 05/24/19 09:52 Vitamin B1 - PO 100 mg DAILY REBECCA Administration Topiramate 25 mg 05/24/19 22:00 05/24/19 21:51 Topamax - PO 25 mg BID REBECCA Administration Vancomycin HCl 125 mg 05/24/19 06:00 05/25/19 06:59 Vancomycin Oral Solution PO 125 mg Q6HPO REBECCA Administration Home Medications Medication Instructions Recorded Albuterol Sulfate Inhaler - 2 inh IH Q4H PRN #1 inh 03/14/19 [Ventolin HFA Inhaler -] Aspirin [Aspirin EC] 81 mg PO DAILY #14 tablet. 03/14/19 Atorvastatin Ca [Lipitor] 20 mg PO HS #14 tablet 03/14/19 Famotidine 20 mg PO BID #28 tablet 03/14/19 Ferrous Sulfate [Feosol] 325 mg PO DAILY #14 tab 03/14/19 Glipizide 5 mg PO DAILY #14 tablet 03/14/19 Lipase/Protease/Amylase [Creon 4 cap PO BID #60 capsule. 03/14/19 6,000 Units Capsule] Lisinopril [Prinivil] 40 mg PO DAILY@0600 #14 tablet 03/14/19 Nifedipine ER [Procardia XL -] 1 tablet PO DAILY #14 tab.er.24 03/14/19 Quetiapine Fumarate [Seroquel -] 200 mg PO HS #30 tablet 03/14/19 Tamsulosin HCl [Flomax -] 0.4 mg PO DAILY@0830 #14 cap.er.24h 03/14/19 Topiramate [Topamax -] 25 mg PO BID #28 tablet 03/14/19 Insulin Glargine,Hum.rec.anlog 15 ml SQ HS 30 Days #1 ins 03/15/19 [Lantus Solostar PEN -] Insulin Sliding Scale [Novolog 1 vial SQ ACHS #2 units 03/15/19 Vial Sliding Scale -] Isopropyl Alcohol [Alcoh-Wipe] 1 each [facility] #[facility] towelette 03/15/19 Methadone (Detox) [Dolophine -] 80 mg PO DAILY@0600 05/24/19 Microbiology 05/23/19 17:50 Urine - Urine Clean Catch Urine Culture - Final Group D Strep Or Entero Coccus 05/24/19 08:54 Blood - Peripheral Venous Blood Culture - Preliminary NO GROWTH OBTAINED AFTER 24 HOURS, INCUBATION TO CONTINUE FOR 4 DAYS. 05/24/19 08:45 Blood - Peripheral Venous Blood Culture - Preliminary NO GROWTH OBTAINED AFTER 24 HOURS, INCUBATION TO CONTINUE FOR 4 DAYS. ASSESSMENT AND PLAN: Patient is a 53 yom with PMHx of recurrent C diff, IDDM, HTN, GERD, polysubstance abuse, chronic pancreatitis , COPD, BPH, ETOH use, CKD, and other medical problems who was sent from [facility] rehab for diarrhea. # s/p Acute Diarrhea with N/V improved, possible due to c diff colitis, with Hx of Cdiff. CT scan was done without contrast. - cont po vanco empirically. cont IVF , stool cx and Fecal WBC , negative so far. #Panniculitis as per CT result: Gi on the case # Mildly dilated CBD on CT: seen on previous USs and Cts in 2013. on pancreatic enzymes continue # ANGELO o n CKD: Base line 1.3-1.9 possible due to diarrhea and vomiting . already responded to IVF . - renal US with no hydro . CT with no obstructing stones . - renal cyct needs to be followed as out pt # Polysubstance abuse: finished ETOH detox at [facility], cont methadone , folic and thiamine # IDDM: cont SSI for now, resume long acting insulin if po intake improves DVT PX : heparin SQ Stool for c. diff toxin/antigen, culture, O&P when stool specimen available Obtain previous records from [facility]. He states that he was admitted there 03/01 around Thanksgiving Supportive measures Poor follow-up.
[2019-05-25] MEDS: LIPASE/PROTEASE/AMYLASE 6,000 UNIT CAPSULE PO SCH (10:30)
[2019-05-25] MEDS: TAMSULOSIN HCL 0.4 MG CAP PO SCH (10:30)
[2019-05-25] MEDS: MULTIVITAMINS (DAILY MVI) TABLET (FP) PO SCH (10:31)
[2019-05-25] MEDS: FERROUS SO4 325 MG TABLET (FP) PO SCH (10:31)
[2019-05-25] MEDS: PANTOPRAZOLE 40 MG TABLET PO SCH (10:31)
[2019-05-25] MEDS: FOLIC ACID 1 MG TABLET (FP) PO SCH (10:31)
[2019-05-25] MEDS: BUDESONIDE/FORMETEROL FUMARATE 80/4.5 mcg INHALER IH SCH ×2 (10:32→21:36)
[2019-05-25] MEDS: TOPIRAMATE 25 MG TABLET (FP) PO SCH ×2 (10:32→21:36)
[2019-05-25] MEDS: THIAMINE HCL 100 MG TABLET (FP) PO SCH (10:32)
[2019-05-25] MEDS ORDERED: PT OWN MED DRAWER 7, Y5N ONE ×4 (12:24→21:15)
[2019-05-25] MEDS ORDERED: IBUPROFEN 400 MG TABLET (FP) PO ONE (12:30)
[2019-05-25 13:02] LABS: URIC ACID 12.3 mg/dL (2.6-7.2)
--- NOTE | 2019-05-25 14:27 | PN ---
Progress Note (short form) - Note Progress Note: Seen in follow up for potential recurrent C diff. C diff cancelled (stool not liquid) Await other stool studies. Please obtain records concerning question of pancreatic and hepatobiliary history.
[2019-05-25] MEDS ORDERED: POTASSIUM CITRATE/CITRIC ACID 2 MEQ/ML ML PO ONE (14:29)
[2019-05-25] MEDS ORDERED: SODIUM CHLORIDE 0.45% 250 ML IV SCH (14:30)
[2019-05-25] MEDS ORDERED: predniSONE 20 MG TABLET (UD) PO ONE (14:31)
--- NOTE | 2019-05-25 16:18 | PN ---
Progress Note, Physician History of Present Illness: Pt seen and examined at bedside. He is awake and alert. He says that he feels better. - Current Medication List Current Medications: Active Medications Albuterol Sulfate (Ventolin Hfa Inhaler -) 2 puff IH Q4H PRN PRN Reason: SHORT OF BREATH/WHEEZING Aspirin (Ecotrin -) 81 mg PO DAILY [facility] Atorvastatin Calcium (Lipitor -) 20 mg PO HS [facility] Last Admin: 05/24/19 21:50 Dose: 20 mg Budesonide/Formoterol Fumarate (Symbicort 80/4.5mcg -) 2 puff IH BID [facility] Last Admin: 05/25/19 10:32 Dose: 2 puff Ferrous Sulfate (Feosol -) 325 mg PO DAILY [facility] Last Admin: 05/25/19 10:31 Dose: 325 mg Folic Acid (Folic Acid -) 1 mg PO DAILY [facility] Last Admin: 05/25/19 10:31 Dose: 1 mg Heparin Sodium (Porcine) (Heparin -) 5,000 unit SQ TID [facility] Last Admin: 05/25/19 13:34 Dose: 5,000 unit Sodium Chloride (1/2 Normal Saline) 250 mls @ 125 mls/hr IV ASDIR [facility] Insulin Aspart (Novolog Vial Sliding Scale -) 1 vial SQ TIDAC [facility]; Protocol Last Admin: 05/25/19 11:46 Dose: Not Given Melatonin (Melatonin) 10 mg PO HS PRN PRN Reason: INSOMNIA Last Admin: 05/24/19 21:50 Dose: 10 mg Methadone HCl (Dolophine -) 80 mg PO 0600 [facility] Last Admin: 05/25/19 06:59 Dose: 80 mg Multivitamins/Minerals/Vitamin C (Tab-A-Vit -) 1 tab PO DAILY [facility] Last Admin: 05/25/19 10:31 Dose: 1 tab Pancrelipase (Creon Dr 6,000 Units Capsule) 4 cap PO BID [facility] Last Admin: 05/25/19 10:30 Dose: 4 cap Pantoprazole Sodium (Protonix -) 40 mg PO DAILY [facility] Last Admin: 05/25/19 10:31 Dose: 40 mg Quetiapine Fumarate (Seroquel -) 200 mg PO HS [facility] Last Admin: 05/24/19 21:51 Dose: 200 mg Simethicone (Mylicon -) 80 mg PO Q4H PRN PRN Reason: GAS Last Admin: 05/24/19 21:50 Dose: 80 mg Tamsulosin HCl (Flomax -) 0.4 mg PO DAILY@0830 [facility] Last Admin: 05/25/19 10:30 Dose: 0.4 mg Thiamine HCl (Vitamin B1 -) 100 mg PO DAILY [facility] Last Admin: 05/25/19 10:32 Dose: 100 mg Topiramate (Topamax -) 25 mg PO BID [facility] Last Admin: 05/25/19 10:32 Dose: 25 mg Vancomycin HCl (Vancomycin Oral Solution) 125 mg PO Q6HPO [facility] Last Admin: 05/25/19 11:46 Dose: 125 mg - Objective Vital Signs: Vital Signs Temperature 98.6 F 05/25/19 14:00 Pulse Rate 78 05/25/19 14:00 Respiratory Rate 20 05/25/19 14:00 Blood Pressure 128/78 05/25/19 14:00 O2 Sat by Pulse Oximetry (%) 98 05/24/19 21:00 Constitutional: Yes: Calm Eyes: Yes: Conjunctiva Clear HENT: Yes: Atraumatic Cardiovascular: Yes: S1, S2 Respiratory: Yes: CTA Bilaterally Gastrointestinal: Yes: Soft Genitourinary: Yes: WNL Musculoskeletal: Yes: WNL Edema: No Neurological: Yes: Oriented Psychiatric: Yes: Oriented Labs: CBC, BMP 05/25/19 08:05 05/25/19 08:05 INR, PTT INR 1.13 (0.83-1.09) H 05/24/19 05:47 Problem List - Problems (1) ANGELO (acute kidney injury) Code(s): N17.9 - ACUTE KIDNEY FAILURE, UNSPECIFIED (2) Diarrhea Code(s): R19.7 - DIARRHEA, UNSPECIFIED Assessment/Plan Current Medications Generic Name Dose Route Start Last Admin Trade Name Freq PRN Reason Stop Dose Admin Albuterol Sulfate 2 puff 05/24/19 01:23 Ventolin Hfa Inhaler - IH Q4H PRN SHORT OF BREATH/WHEEZING Aspirin 81 mg 05/25/19 10:00 Ecotrin - PO DAILY [facility] Atorvastatin Calcium 20 mg 05/24/19 22:00 05/24/19 21:50 Lipitor - PO 20 mg HS [facility] Administration Budesonide/Formoterol Fumarate 2 puff 05/24/19 10:00 05/25/19 10:32 Symbicort 80/4.5mcg - IH 2 puff BID REBECCA Administration Ferrous Sulfate 325 mg 05/24/19 10:00 05/25/19 10:31 Feosol - PO 325 mg DAILY REBECCA Administration Folic Acid 1 mg 05/24/19 10:00 05/25/19 10:31 Folic Acid - PO 1 mg DAILY REBECCA Administration Heparin Sodium (Porcine) 5,000 unit 05/24/19 06:00 05/25/19 13:34 Heparin - SQ 5,000 unit TID REBECCA Administration Sodium Chloride 250 mls @ 125 mls/hr 05/25/19 14:30 1/2 Normal Saline IV ASDIR [facility] Insulin Aspart 1 vial 05/24/19 16:30 05/25/19 11:46 Novolog Vial Sliding Scale - SQ Not Given TIDAC [facility] Protocol Melatonin 10 mg 05/24/19 22:00 05/24/19 21:50 Melatonin PO 10 mg HS PRN Administration INSOMNIA Methadone HCl 80 mg 05/24/19 10:00 05/25/19 06:59 Dolophine - PO 80 mg 0600 [facility] Administration Multivitamins/Minerals/Vitamin C 1 tab 05/24/19 10:00 05/25/19 10:31 Tab-A-Vit - PO 1 tab DAILY [facility]BECCA Administration Pancrelipase 4 cap 05/24/19 10:00 05/25/19 10:[address] 6,000 Units Capsule PO 4 cap BID REBECCA Administration Pantoprazole Sodium 40 mg 05/25/19 10:00 05/25/19 10:31 Protonix - PO 40 mg DAILY REBE[facility] Administration Quetiapine Fumarate 200 mg 05/24/19 22:00 05/24/19 21:51 Seroquel - PO 200 mg HS REBECCA Administration Simethicone 80 mg 05/24/19 20:50 05/24/19 21:50 Mylicon - PO 80 mg Q4H PRN Administration GAS Tamsulosin HCl 0.4 mg 05/25/19 08:30 05/25/19 10:30 Flomax - PO 0.4 mg DAILY@0830 REBECCA Administration Thiamine HCl 100 mg 05/24/19 10:00 05/25/19 10:32 Vitamin B1 - PO 100 mg DAILY REBECCA Administration Topiramate 25 mg 05/24/19 22:00 05/25/19 10:32 Topamax - PO 25 mg BID REBECCA Administration Vancomycin HCl 125 mg 05/24/19 06:00 05/25/19 11:46 Vancomycin Oral Solution PO 125 mg Q6HPO REBECCA Administration Impression 1. ANGELO 2. opioid dependence 3. diarrhea 4. ckd 5. dm 6. htn 7. gerd 8. renal cyst Plan - renal function is improved - encourage po water intake - repeat labs in am - change fluids from LR to 1/2 ns - likely angelo from pre-renal disease - kidneys are echogenic on ultrasound
--- NOTE | 2019-05-25 16:39 | DS ---
Physical Exam: SUBJECTIVE: Patient seen and examined at the bedside. Noted that he had a solid stool bowel movement overnight which was collected for analysis. Also noted that he was having reflux type discomfort overnight and wanted to eat. Otherwise , denied cp, sob, fever, chills, dizziness, lightheadedness, headaches. OBJECTIVE: Vital Signs Period Temp Pulse Resp BP Sys/Lopez Pulse Ox Last 24 Hr 97.3 F-98.6 F 78-97 20-20 120-143/56-99 98-98 PHYSICAL EXAM GENERAL: The patient is awake, alert, and fully oriented, in mild acute distress. EYES: PERRL, extraocular movements intact, sclera anicteric, conjunctiva clear. ENT: Oropharynx clear without exudates, dry mucous membranes. LUNGS: Breath sounds equal, clear to auscultation bilaterally, no wheezes, no crackles, no accessory muscle use. HEART: Regular rate and rhythm, S1, S2 without murmur, rub. ABDOMEN: Soft, tender diffusely, nondistended, normoactive bowel sounds, rebound tenderness present, no masses. EXTREMITIES: 2+ pulses, warm, well-perfused, no edema. NEUROLOGICAL: Cranial nerves II through XII grossly intact. 5/5 muscle strength bilaterally upper and lower extremities. PSYCH: Normal mood, normal affect. SKIN: varicose veins and hyperpigmentation of the feet. LABS Laboratory Results - last 24 hr 05/24/19 05/24/19 05/24/19 15:48 18:06 20:57 WBC RBC Hgb Hct MCV MCH MCHC RDW Plt Count MPV Absolute Neuts (auto) Neutrophils % Lymphocytes % Monocytes % Eosinophils % Basophils % Nucleated RBC % Sodium Potassium Chloride Carbon Dioxide Anion Gap BUN Creatinine Est GFR (CKD-EPI)AfAm Est GFR (CKD-EPI)NonAf POC Glucometer 136 199 Random Glucose Uric Acid Calcium Magnesium Total Bilirubin AST ALT Alkaline Phosphatase Total Protein Albumin Stool Occult Blood Opiates Screen Negative Methadone Screen Positive A* Barbiturate Screen Negative Phencyclidine Screen Negative Ur Amphetamines Screen Negative MDMA (Ecstasy) Screen Negative Benzodiazepines Screen Positive A* Cocaine Screen Negative U Marijuana (THC) Screen Negative 05/24/19 05/25/19 05/25/19 23:00 06:57 08:05 WBC 9.9 RBC 3.11 L Hgb 10.1 L Hct 30.0 L MCV 96.4 H MCH 32.3 MCHC 33.5 RDW 14.7 Plt Count 167 MPV 9.5 Absolute Neuts (auto) 6.2 Neutrophils % 62.6 Lymphocytes % 21.1 Monocytes % 15.0 H Eosinophils % 0.9 Basophils % 0.4 Nucleated RBC % 0 Sodium Potassium Chloride Carbon Dioxide Anion Gap BUN Creatinine Est GFR (CKD-EPI)AfAm Est GFR (CKD-EPI)NonAf POC Glucometer 145 Random Glucose Uric Acid Calcium Magnesium Total Bilirubin AST ALT Alkaline Phosphatase Total Protein Albumin Stool Occult Blood Negative Opiates Screen Methadone Screen Barbiturate Screen Phencyclidine Screen Ur Amphetamines Screen MDMA (Ecstasy) Screen Benzodiazepines Screen Cocaine Screen U Marijuana (THC) Screen 05/25/19 05/25/19 08:05 11:44 WBC RBC Hgb Hct MCV MCH MCHC RDW Plt Count MPV Absolute Neuts (auto) Neutrophils % Lymphocytes % Monocytes % Eosinophils % Basophils % Nucleated RBC % Sodium 146 H Potassium 4.1 Chloride 123 H Carbon Dioxide 18 L Anion Gap 5 L BUN 29.6 H Creatinine 2.2 H Est GFR (CKD-EPI)AfAm 37.69 Est GFR (CKD-EPI)NonAf 32.52 POC Glucometer 136 Random Glucose 150 H Uric Acid 12.3 H Calcium 8.3 L Magnesium 1.8 Total Bilirubin 0.2 AST 15 ALT 24 Alkaline Phosphatase 117 Total Protein 6.2 L Albumin 2.8 L Stool Occult Blood Opiates Screen Methadone Screen Barbiturate Screen Phencyclidine Screen Ur Amphetamines Screen MDMA (Ecstasy) Screen Benzodiazepines Screen Cocaine Screen U Marijuana (THC) Screen HOSPITAL COURSE: Dane Whitmore 53 year old male with a past medical history of HTN, CKD, GERD, type 2 DM, chronic pancreatitis & CBD dilatation, EtOH abuse, opioid depenence on 80mg methadone ([facility] in [place]), COPD admitted for acute diarrheal illness. Patient ceased having liquid stools on admission. C diff exam was not performed as patient was having solid stool. Began to tolerate diet well and was maintained on zofran and Tylenol for pain. CT Abd/pelvis noted Mildly increased fluid is seen within the colon and small bowel without definite associated wall edema - ? diarrheal illness. In comparison to a prior CT study of 02/18/2019 apparent interval development of slightly increased mesenteric density is seen centrally with associated development of several slightly prominent mesenteric lymph nodes in the same region. This appearance may be on the basis of clinical or subclinical mesenteric panniculitis. Correlation with 2 month follow-up CT is suggested to document stability/resolution and lack of developing pathology. Chronic calcific pancreatitis is again noted. As on prior studies there is mild chronic common bile duct dilatation. GI was consulted and advised that patient follow up in the outpatient clinic as C diff was unlikely in this setting. Patient had ANGELO and had improved by day of discharge. Was advised to avoid nephrotoxic agents. Patient had R first toe pain and had elevated uric acid. Was started on prednisone and potassium citrate for 5 day course and was advised to follow up with his PCP and with GI. Patient was advised not to consume alcoholic beverages, shellfish, and red meats. Was advised to follow up with addiction medicine, [facility], for continued treatment of his alcohol abuse disorder. Patient was started on a 5 day course of prednisone and potassium citrate and advised to follow up with PCP and GI. Was advised to follow a low fiber diet. Patient was discharged in stable medical condition. Date of Admission:05/23/19 Date of Discharge: 05/25/19 Minutes to complete discharge: 35 Discharge Summary Problems reviewed: Yes Reason For Visit: ACUTE KIDNEY INJURY,GASTROESOPHAGEAL REFLUX DISEAS Current Active Problems GERD (gastroesophageal reflux disease) (Chronic) Opioid dependence on agonist therapy (Chronic) Condition: Stable - Instructions Diet, Activity, Other Instructions: You were admitted for diarrhea. Your diarrhea had resolved. You had a CT scan done which showed some changes in your bowels and the fat surrounding your bowels. You are advised to follow up with a receiving manager (stomach, liver, interstine doctor) and to have a repeat CT scan of your abdomen and pelvis in 2 months to assess for any progression. You tested negative for C diff infection. MEDICATIONS START to take prednisone 30mg (3 x 10mg = 30mg ) once a day for 5 days and follow up with your primary care doctor. START to take potassium citrate once a day for 5 days and follow up with your primary care doctor. please follow up with your primary care doctor , since you have gout which you are getting treatment for. REFERRALS Please follow up with your primary care doctor within 1 week. If you do not have a primary care doctor you may follow with the [facility] for which the information is provided. Please follow up with the gastroenterology, Dr. Cox, within 1 week. SPECIAL INSTRUCTIONS Please refrain from drinking while you are on medications. Please follow up with the [facility] for alcohol rehabilitation. Please eat a diet low in fiber. stay away from milk product, sea food, red meat , alcohol. If you have any symptoms of chest pain, shortness of breath, continued unremitting diarrhea, bloody stools, vomiting, fevers, or any other general feelings of unwellness, please call 911 or go to your nearest emergency room. Referrals: [facility] [place] [Provider Group] - 1 Week Tom Cox DO [Staff Physician] - 2 Weeks Disposition: HOME - Home Medications Comprehensive Discharge Medication List: Ambulatory Orders Albuterol Sulfate Inhaler - [Ventolin HFA Inhaler -] 2 inh IH Q4H PRN #1 inh 06/01 Aspirin [Aspirin EC] 81 mg PO DAILY #14 tablet. 03/14/19 Atorvastatin Ca [Lipitor] 20 mg PO HS #14 tablet 03/14/19 Famotidine 20 mg PO BID #28 tablet 03/14/19 Ferrous Sulfate [Feosol] 325 mg PO DAILY #14 tab 03/14/19 Glipizide 5 mg PO DAILY #14 tablet 03/14/19 Lipase/Protease/Amylase [Erich Camejo 6,000 Units Capsule] 4 cap PO BID #60 capsule. 03/14/19 Lisinopril [Prinivil] 40 mg PO DAILY@0600 #14 tablet 03/14/19 Nifedipine ER [Procardia XL -] 1 tablet PO DAILY #14 tab.er.24 03/14/19 Quetiapine Fumarate [Seroquel -] 200 mg PO HS #30 tablet 03/14/19 Tamsulosin HCl [Flomax -] 0.4 mg PO DAILY@0830 #14 cap.er.24h 03/14/19 Topiramate [Topamax -] 25 mg PO BID #28 tablet 03/14/19 Insulin Glargine,Hum.rec.anlog [Lantus Solostar PEN -] 15 ml SQ HS 30 Days #1 ins 03/15/19 Insulin Sliding Scale [Novolog Vial Sliding Scale -] 1 vial SQ ACHS #2 units 06/29 Isopropyl Alcohol [Alcoh-Wipe] 1 each [facility] #1 towelette 03/15/19 Methadone (Detox) [Dolophine -] 80 mg PO DAILY@0600 05/24/19 Potassium Citrate [Potassium Citrate ER] 10 meq PO DAILY #5 tablet.er 05/25/19 Prednisone 30 mg PO DAILY #15 tablet 05/25/19 This patient is new to me today: No Emergency Visit: Yes ED Registration Date: 05/23/19 Care time: The patient presented to the Emergency Department on the above date and was hospitalized for further evaluation of their emergent condition. Critical Care patient: No - Discharge Referral Referred to [facility] Yes Physician Referral: Enrike Cox DO (GI)
[2019-05-25] MEDS: SODIUM CHLORIDE 0.45% 250 ML IV SCH (20:40)
[2019-05-25] MEDS: ATORVASTATIN CA 20 MG TABLET (FP) PO SCH (21:36)
[2019-05-25] MEDS: MELATONIN 5 MG TABLETS PO PRN (21:36)
[2019-05-25] MEDS: QUEtiapine FUMARATE 200 MG TABLET PO SCH (21:36)
[2019-05-26] MEDS: VANCOMYCIN 250 MG/5 ML ORAL SOLUTION PO SCH ×2 (00:15→06:36)
[2019-05-26] MEDS: LIPASE/PROTEASE/AMYLASE 6,000 UNIT CAPSULE PO SCH ×3 (00:16→17:29)
[2019-05-26] MEDS: LACTATED RINGERS SOLUTION 1,000 ML/1,000 ML INFUS.BAG IV SCH (00:16)
[2019-05-26] MEDS ORDERED: PT OWN MED DRAWER 7, Y5N ONE ×3 (06:22→17:28)
[2019-05-26] MEDS: INSULIN SLIDING SCALE (NOVOLOG) 1 VIAL SQ SCH ×3 (06:36→17:26)
[2019-05-26] MEDS: METHADONE HCL 40 MG DISPERSABLE TABLET PO SCH (06:36)
[2019-05-26] MEDS: HEPARIN NA (PORCINE) 5,000 UNITS/ML 1ML VIAL SQ SCH ×3 (06:37→21:27)
--- NOTE | 2019-05-26 09:11 | PN ---
Physical Exam: SUBJECTIVE: Patient seen and examined at the bedside. Patient states that he is feelings better and wants to go back to rehab. Noted that he is tolerating a diet well and has normal bowel movements. Did have some intermittent nausea. Denies cp, sob, fevers, headaches, dizziness, lightheadedness, cough. Had appealed discharge yesterday, in appeals process. OBJECTIVE: Vital Signs Period Temp Pulse Resp BP Sys/Lopez Pulse Ox Last 24 Hr 98.3 F-98.6 F 58-78 18-20 128-179/78-95 98 GENERAL: The patient is awake, alert, and fully oriented, in no acute distress. EYES: PERRL, extraocular movements intact, sclera anicteric, conjunctiva clear. ENT: Oropharynx clear without exudates, moist mucous membranes. LUNGS: Breath sounds equal, clear to auscultation bilaterally, no wheezes, no crackles, no accessory muscle use. HEART: Regular rate and rhythm, S1, S2 without murmur, rub. ABDOMEN: Soft, mildly tender to palpation diffusely, nondistended, normoactive bowel sounds, no rebound tenderness, no masses. EXTREMITIES: 2+ pulses, warm, well-perfused, no edema. Tender to touch on the R foot, warmth compared with R foot. NEUROLOGICAL: Cranial nerves II through XII grossly intact. 5/5 muscle strength bilaterally upper and lower extremities. PSYCH: Normal mood, normal affect. SKIN: varicose veins and hyperpigmentation of the feet. Laboratory Results - last 24 hr 05/25/19 05/25/19 05/25/19 08:05 11:44 17:01 Sodium 146 H Potassium 4.1 Chloride 123 H Carbon Dioxide 18 L Anion Gap 5 L BUN 29.6 H Creatinine 2.2 H Est GFR (CKD-EPI)AfAm 37.69 Est GFR (CKD-EPI)NonAf 32.52 POC Glucometer 136 112 Random Glucose 150 H Uric Acid 12.3 H Calcium 8.3 L Magnesium 1.8 Total Bilirubin 0.2 AST 15 ALT 24 Alkaline Phosphatase 117 Total Protein 6.2 L Albumin 2.8 L 05/25/19 05/26/19 05/26/19 20:51 06:07 06:09 Sodium Potassium Chloride Carbon Dioxide Anion Gap BUN Creatinine Est GFR (CKD-EPI)AfAm Est GFR (CKD-EPI)NonAf POC Glucometer 195 180 319 Random Glucose Uric Acid Calcium Magnesium Total Bilirubin AST ALT Alkaline Phosphatase Total Protein Albumin Active Medications Generic Name Dose Route Start Last Admin Trade Name Freq PRN Reason Stop Dose Admin Albuterol Sulfate 2 puff 05/24/19 01:23 Ventolin Hfa Inhaler - IH Q4H PRN SHORT OF BREATH/WHEEZING Aspirin 81 mg 05/25/19 10:00 Ecotrin - PO DAILY REBECCA Atorvastatin Calcium 20 mg 05/24/19 22:00 05/25/19 21:36 Lipitor - PO 20 mg HS REBECCA Administration Budesonide/Formoterol Fumarate 2 puff 05/24/19 10:00 05/25/19 21:36 Symbicort 80/4.5mcg - IH 2 puff BID REBECCA Administration Ferrous Sulfate 325 mg 05/24/19 10:00 05/25/19 10:31 Feosol - PO 325 mg DAILY REBECCA Administration Folic Acid 1 mg 05/24/19 10:00 05/25/19 10:31 Folic Acid - PO 1 mg DAILY REBECCA Administration Heparin Sodium (Porcine) 5,000 unit 05/24/19 06:00 05/26/19 06:37 Heparin - SQ 5,000 unit TID REBECCA Administration Sodium Chloride 250 mls @ 100 mls/hr 05/25/19 16:19 05/25/19 20:40 1/2 Normal Saline IV Not Given [facility]IR [facility] Insulin Aspart 1 vial 05/24/19 16:30 05/26/19 06:36 Novolog Vial Sliding Scale - SQ 8 units TIDAC REBECCA Administration Protocol Melatonin 10 mg 05/24/19 22:00 05/25/19 21:36 Melatonin PO 10 mg HS PRN Administration INSOMNIA Methadone HCl 80 mg 05/24/19 10:00 05/26/19 06:36 Dolophine - PO 80 mg 0600 REBECCA Administration Multivitamins/Minerals/Vitamin C 1 tab 05/24/19 10:00 05/25/19 10:31 Tab-A-Vit - PO 1 tab DAILY REBECCA Administration Pancrelipase 4 cap 05/25/19 23:[address] 6,000 Units Capsule PO BIDWM REBECCA Pantoprazole Sodium 40 mg 05/25/19 10:00 05/25/19 10:31 Protonix - PO 40 mg DAILY REBECCA Administration Quetiapine Fumarate 200 mg 05/24/19 22:00 05/25/19 21:36 Seroquel - PO 200 mg HS REBECCA Administration Simethicone 80 mg 05/24/19 20:50 05/24/19 21:50 Mylicon - PO 80 mg Q4H PRN Administration GAS Tamsulosin HCl 0.4 mg 05/25/19 08:30 05/25/19 10:30 Flomax - PO 0.4 mg DAILY@0830 REBECCA Administration Thiamine HCl 100 mg 05/24/19 10:00 05/25/19 10:32 Vitamin B1 - PO 100 mg DAILY REBECCA Administration Topiramate 25 mg 05/24/19 22:00 05/25/19 21:36 Topamax - PO 25 mg BID REBECCA Administration Vancomycin HCl 125 mg 05/24/19 06:00 05/26/19 06:36 Vancomycin Oral Solution PO 125 mg Q6HPO REBECCA Administration ASSESSMENT/PLAN: Dane Whitmore 53 year old male with a past medical history of HTN, CKD, GERD, type 2 DM, chronic pancreatitis & CBD dilatation, EtOH abuse, opioid depenence on 80mg methadone ([facility] in [place]), COPD admitted for acute diarrheal illness. Patient has been stable for discharge since yesterday. No acute changes in plan. Patient to continue on prednisone 30mg x5 days and Potassium citrate and to follow up with PCP, GI, and to seek rehabilitation services for his alcohol use disorder. Patient endorsed that he will do the same and was discharged in stable medical condition. Visit type - Emergency Visit Emergency Visit: Yes ED Registration Date: 05/23/19 Care time: The patient presented to the Emergency Department on the above date and was hospitalized for further evaluation of their emergent condition. - New Patient This patient is new to me today: No - Critical Care Critical Care patient: No
[2019-05-26 09:17] LABS: BLOOD UREA NITROGEN 31.5 mg/dL (7-18); CALCIUM 8.2 mg/dL (8.5-10.1); CREATININE 2.3 mg/dL (0.55-1.3); MAGNESIUM 1.9 mg/dL (1.8-2.4); POTASSIUM 4.5 mmol/L (3.5-5.1)
[2019-05-26] MEDS: FOLIC ACID 1 MG TABLET (FP) PO SCH (09:45)
[2019-05-26] MEDS: TOPIRAMATE 25 MG TABLET (FP) PO SCH ×2 (09:45→21:28)
[2019-05-26] MEDS: PANTOPRAZOLE 40 MG TABLET PO SCH (09:45)
[2019-05-26] MEDS: TAMSULOSIN HCL 0.4 MG CAP PO SCH (09:45)
[2019-05-26] MEDS: MULTIVITAMINS (DAILY MVI) TABLET (FP) PO SCH (09:45)
[2019-05-26] MEDS: FERROUS SO4 325 MG TABLET (FP) PO SCH (09:45)
[2019-05-26] MEDS: THIAMINE HCL 100 MG TABLET (FP) PO SCH (09:46)
[2019-05-26] MEDS ORDERED: INSULIN (NOVOLOG) ASPART 100 UNITS/ML 10ML VIAL ONE ×2 (11:24→18:20)
[2019-05-26] MEDS ORDERED: predniSONE 10 MG TABLET (UD) PO ONE ×2 (11:41)
[2019-05-26] MEDS ORDERED: predniSONE 20 MG TABLET (UD) PO ONE (12:30)
--- NOTE | 2019-05-26 13:20 | PN ---
Progress Note, Physician History of Present Illness: Pt seen and examined at bedside. He is awake and alert. He denies shortness of breath. - Current Medication List Current Medications: Active Medications Albuterol Sulfate (Ventolin Hfa Inhaler -) 2 puff IH Q4H PRN PRN Reason: SHORT OF BREATH/WHEEZING Aspirin (Ecotrin -) 81 mg PO DAILY [facility] Atorvastatin Calcium (Lipitor -) 20 mg PO HS [facility] Last Admin: 05/25/19 21:36 Dose: 20 mg Budesonide/Formoterol Fumarate (Symbicort 80/4.5mcg -) 2 puff IH BID [facility] Last Admin: 05/25/19 21:36 Dose: 2 puff Ferrous Sulfate (Feosol -) 325 mg PO DAILY [facility] Last Admin: 05/26/19 09:45 Dose: 325 mg Folic Acid (Folic Acid -) 1 mg PO DAILY [facility] Last Admin: 05/26/19 09:45 Dose: 1 mg Heparin Sodium (Porcine) (Heparin -) 5,000 unit SQ TID [facility] Last Admin: 05/26/19 06:37 Dose: 5,000 unit Sodium Chloride (1/2 Normal Saline) 250 mls @ 100 mls/hr IV ASDIR [facility] Last Admin: 05/25/19 20:40 Dose: Not Given Insulin Aspart (Novolog Vial Sliding Scale -) 1 vial SQ TIDAC [facility]; Protocol Last Admin: 05/26/19 11:49 Dose: Not Given Melatonin (Melatonin) 10 mg PO HS PRN PRN Reason: INSOMNIA Last Admin: 05/25/19 21:36 Dose: 10 mg Methadone HCl (Dolophine -) 80 mg PO 0600 [facility] Last Admin: 05/26/19 06:36 Dose: 80 mg Multivitamins/Minerals/Vitamin C (Tab-A-Vit -) 1 tab PO DAILY [facility] Last Admin: 05/26/19 09:45 Dose: 1 tab Nifedipine (Procardia Xl -) 30 mg PO DAILY [facility] Pancrelipase (Creon Dr 6,000 Units Capsule) 4 cap PO BIDWM [facility] Last Admin: 05/26/19 09:44 Dose: 4 cap Pantoprazole Sodium (Protonix -) 40 mg PO DAILY [facility] Last Admin: 05/26/19 09:45 Dose: 40 mg Potassium Citrate/Citric Acid (Cytra-K -) 20 meq PO DAILY [facility] Quetiapine Fumarate (Seroquel -) 200 mg PO HS [facility] Last Admin: 05/25/19 21:36 Dose: 200 mg Simethicone (Mylicon -) 80 mg PO Q4H PRN PRN Reason: GAS Last Admin: 05/24/19 21:50 Dose: 80 mg Tamsulosin HCl (Flomax -) 0.4 mg PO DAILY@0830 [facility] Last Admin: 05/26/19 09:45 Dose: 0.4 mg Thiamine HCl (Vitamin B1 -) 100 mg PO DAILY [facility] Last Admin: 05/26/19 09:46 Dose: 100 mg Topiramate (Topamax -) 25 mg PO BID [facility] Last Admin: 05/26/19 09:45 Dose: 25 mg - Objective Vital Signs: Vital Signs Temperature 98.4 F 05/26/19 09:50 Pulse Rate 92 H 05/26/19 09:50 Respiratory Rate 18 05/26/19 09:50 Blood Pressure 123/94 05/26/19 09:50 O2 Sat by Pulse Oximetry (%) 98 05/25/19 21:00 Constitutional: Yes: Calm Eyes: Yes: Conjunctiva Clear HENT: Yes: Atraumatic Neck: Yes: Supple Cardiovascular: Yes: S1, S2 Respiratory: Yes: CTA Bilaterally Gastrointestinal: Yes: Soft Musculoskeletal: Yes: WNL Edema: No Neurological: Yes: Oriented Psychiatric: Yes: Oriented Labs: CBC, BMP 05/25/19 08:05 05/26/19 06:30 INR, PTT INR 1.13 (0.83-1.09) H 05/24/19 05:47 Problem List - Problems (1) ANGELO (acute kidney injury) Code(s): N17.9 - ACUTE KIDNEY FAILURE, UNSPECIFIED (2) Diarrhea Code(s): R19.7 - DIARRHEA, UNSPECIFIED Assessment/Plan Current Medications Generic Name Dose Route Start Last Admin Trade Name Freq PRN Reason Stop Dose Admin Albuterol Sulfate 2 puff 05/24/19 01:23 Ventolin Hfa Inhaler - IH Q4H PRN SHORT OF BREATH/WHEEZING Aspirin 81 mg 05/25/19 10:00 Ecotrin - PO DAILY [facility] Atorvastatin Calcium 20 mg 05/24/19 22:00 05/25/19 21:36 Lipitor - PO 20 mg HS [facility] Administration Budesonide/Formoterol Fumarate 2 puff 05/24/19 10:00 05/25/19 21:36 Symbicort 80/4.5mcg - IH 2 puff BID REBECCA Administration Ferrous Sulfate 325 mg 05/24/19 10:00 05/26/19 09:45 Feosol - PO 325 mg DAILY REBECCA Administration Folic Acid 1 mg 05/24/19 10:00 05/26/19 09:45 Folic Acid - PO 1 mg DAILY REBECCA Administration Heparin Sodium (Porcine) 5,000 unit 05/24/19 06:00 05/26/19 06:37 Heparin - SQ 5,000 unit TID REBECCA Administration Sodium Chloride 250 mls @ 100 mls/hr 05/25/19 16:19 05/25/19 20:40 1/2 Normal Saline IV Not Given ASDIR [facility] Insulin Aspart 1 vial 05/24/19 16:30 05/26/19 11:49 Novolog Vial Sliding Scale - SQ Not Given TIDAC [facility] Protocol Melatonin 10 mg 05/24/19 22:00 05/25/19 21:36 Melatonin PO 10 mg HS PRN Administration INSOMNIA Methadone HCl 80 mg 05/24/19 10:00 05/26/19 06:36 Dolophine - PO 80 mg 0600 [facility] Administration Multivitamins/Minerals/Vitamin C 1 tab 05/24/19 10:00 05/26/19 09:45 Tab-A-Vit - PO 1 tab DAILY REBECCA Administration Nifedipine 30 mg 05/27/19 10:00 Procardia Xl - PO DAILY [facility] Pancrelipase 4 cap 05/25/19 23:06 05/26/19 09:[address] 6,000 Units Capsule PO 4 cap BIDWM REBECCA Administration Pantoprazole Sodium 40 mg 05/25/19 10:00 05/26/19 09:45 Protonix - PO 40 mg DAILY [facility] Administration Potassium Citrate/Citric Acid 20 meq 05/26/19 11:45 Cytra-K - PO DAILY [facility] Quetiapine Fumarate 200 mg 05/24/19 22:00 05/25/19 21:36 Seroquel - PO 200 mg HS REBECCA Administration Simethicone 80 mg 05/24/19 20:50 05/24/19 21:50 Mylicon - PO 80 mg Q4H PRN Administration GAS Tamsulosin HCl 0.4 mg 05/25/19 08:30 05/26/19 09:45 Flomax - PO 0.4 mg DAILY@0830 REBECCA Administration Thiamine HCl 100 mg 05/24/19 10:00 05/26/19 09:46 Vitamin B1 - PO 100 mg DAILY REBECCA Administration Topiramate 25 mg 05/24/19 22:00 05/26/19 09:45 Topamax - PO 25 mg BID REBECCA Administration Impression 1. ANGELO 2. opioid dependence 3. diarrhea 4. ckd 5. dm 6. htn 7. gerd 8. renal cyst Plan - cont to monitor renal function - will need outpt follow up - can get ckd workup as outpt - likely angelo from pre-renal disease - kidneys are echogenic on ultrasound
[2019-05-26] MEDS: POTASSIUM CITRATE/CITRIC ACID 2 MEQ/ML ML PO SCH (13:36)
[2019-05-26] MEDS: BUDESONIDE/FORMETEROL FUMARATE 80/4.5 mcg INHALER IH SCH ×2 (13:44→21:32)
[2019-05-26] MEDS: SODIUM CHLORIDE 0.45% 250 ML IV SCH (17:27)
--- NOTE | 2019-05-26 20:59 | PN ---
Teaching Attending Note Name of Resident: Jovani Mcgraw ATTENDING PHYSICIAN STATEMENT I saw and evaluated the patient. I reviewed the resident's note and discussed the case with the resident. I agree with the resident's findings and plan as documented. SUBJECTIVE: Patient is comfortable, but feels tired. Vital Signs Temperature 98.2 F 05/26/19 16:30 Pulse Rate 111 H 05/26/19 16:30 Respiratory Rate 20 05/26/19 16:30 Blood Pressure 122/93 05/26/19 16:30 O2 Sat by Pulse Oximetry (%) 98 05/26/19 09:00 GENERAL: The patient is awake, alert, and fully oriented, in no acute distress. HEAD: Normal with no signs of trauma. EYES: PERRL, extraocular movements intact, sclera anicteric, conjunctiva clear. ENT: Ears normal, oropharynx clear without exudates, moist mucous membranes. NECK: Trachea midline, full range of motion, supple. LUNGS: Breath sounds equal, clear to auscultation bilaterally, no wheezes, no crackles, no accessory muscle use. HEART: tachycardic , S1, S2 positive without any murmur, no rub or gallop. ABDOMEN: Soft, NT, ND, normoactive bowel sounds, no guarding, no rebound, no hepatosplenomegaly, no masses. EXTREMITIES: 2+ pulses, warm, well-perfused, no edema. NEUROLOGICAL: Cranial nerves II through XII grossly intact. Normal speech, gait not observed. PSYCH: Normal mood, normal affect. SKIN: Warm, dry, normal turgor, no rashes or lesions noted CBCD WBC 9.9 K/mm3 (4.0-10.0) 05/25/19 08:05 RBC 3.11 M/mm3 (4.00-5.60) L 05/25/19 08:05 Hgb 10.1 GM/dL (11.7-16.9) L 05/25/19 08:05 Hct 30.0 % (35.4-49) L 05/25/19 08:05 MCV 96.4 fl (80-96) H 05/25/19 08:05 MCHC 33.5 g/dl (32.0-35.9) 05/25/19 08:05 RDW 14.7 % (11.9-15.9) 05/25/19 08:05 Plt Count 167 K/MM3 (134-434) 05/25/19 08:05 MPV 9.5 fl (7.5-11.1) 05/25/19 08:05 CMP Sodium 141 mmol/L (136-145) 05/26/19 06:30 Potassium 4.5 mmol/L (3.5-5.1) 05/26/19 06:30 Chloride 115 mmol/L (98-107) H 05/26/19 06:30 Carbon Dioxide 19 mmol/L (21-32) L 05/26/19 06:30 Anion Gap 7 MMOL/L (8-16) L 05/26/19 06:30 BUN 31.5 mg/dL (7-18) H 05/26/19 06:30 Creatinine 2.3 mg/dL (0.55-1.3) H 05/26/19 06:30 Random Glucose 334 mg/dL (74-106) H 05/26/19 06:30 Calcium 8.2 mg/dL (8.5-10.1) L 05/26/19 06:30 Total Bilirubin 0.2 mg/dL (0.2-1) 05/25/19 08:05 AST 15 U/L (15-37) 05/25/19 08:05 ALT 24 U/L (13-61) 05/25/19 08:05 Alkaline Phosphatase 117 U/L (45-117) 05/25/19 08:05 Total Protein 6.2 g/dl (6.4-8.2) L 05/25/19 08:05 Albumin 2.8 g/dl (3.4-5.0) L 05/25/19 08:05 CARDIAC ENZYMES Creatine Kinase 32 U/L (26-308) 05/23/19 22:13 Troponin I < 0.02 ng/ml (0.00-0.05) 05/23/19 22:13 Home Medications Medication Instructions Recorded Albuterol Sulfate Inhaler - 2 inh IH Q4H PRN #1 inh 03/14/19 [Ventolin HFA Inhaler -] Aspirin [Aspirin EC] 81 mg PO DAILY #14 tablet. 03/14/19 Atorvastatin Ca [Lipitor] 20 mg PO HS #14 tablet 03/14/19 Famotidine 20 mg PO BID #28 tablet 03/14/19 Ferrous Sulfate [Feosol] 325 mg PO DAILY #14 tab 03/14/19 Glipizide 5 mg PO DAILY #14 tablet 03/14/19 Lipase/Protease/Amylase [Erich Camejo 4 cap PO BID #60 capsule. 03/14/19 6,000 Units Capsule] Lisinopril [Prinivil] 40 mg PO DAILY@0600 #14 tablet 03/14/19 Nifedipine ER [Procardia XL -] 1 tablet PO DAILY #14 tab.er.24 03/14/19 Quetiapine Fumarate [Seroquel -] 200 mg PO HS #30 tablet 03/14/19 Tamsulosin HCl [Flomax -] 0.4 mg PO DAILY@0830 #14 cap.er.24h 03/14/19 Topiramate [Topamax -] 25 mg PO BID #28 tablet 03/14/19 Insulin Glargine,Hum.rec.anlog 15 ml SQ HS 30 Days #1 ins 03/15/19 [Lantus Solostar PEN -] Insulin Sliding Scale [Novolog 1 vial SQ ACHS #2 units 03/15/19 Vial Sliding Scale -] Isopropyl Alcohol [Alcoh-Wipe] 1 each ACBK #1 towelette 03/15/19 Methadone (Detox) [Dolophine -] 80 mg PO DAILY@0600 05/24/19 Microbiology 05/23/19 17:50 Urine - Urine Clean Catch Urine Culture - Final Group D Strep Or Entero Coccus 05/24/19 08:54 Blood - Peripheral Venous Blood Culture - Preliminary NO GROWTH OBTAINED AFTER 24 HOURS, INCUBATION TO CONTINUE FOR 4 DAYS. 05/24/19 08:45 Blood - Peripheral Venous Blood Culture - Preliminary NO GROWTH OBTAINED AFTER 24 HOURS, INCUBATION TO CONTINUE FOR 4 DAYS. ASSESSMENT AND PLAN: Patient is a 53 yom with PMHx of recurrent C diff, IDDM, HTN, GERD, polysubstance abuse, chronic pancreatitis , COPD, BPH, ETOH use, CKD, and other medical problems who was sent from [facility] rehab for diarrhea. # s/p Acute Diarrhea with N/V improved, possible due to c diff colitis, with Hx of Cdiff. CT scan was done without contrast. - cont po vanco empirically. cont IVF , stool cx and Fecal WBC , negative so far. #Panniculitis as per CT result: Gi on the case # Mildly dilated CBD on CT: seen on previous USs and Cts in 2013. on pancreatic enzymes continue # ANGELO o n CKD: Base line 1.3-1.9 possible due to diarrhea and vomiting . already responded to IVF . - renal US with no hydro . CT with no obstructing stones . - renal cyct needs to be followed as out pt # Polysubstance abuse: finished ETOH detox at [facility], cont methadone , folic and thiamine # IDDM: cont SSI for now, resume long acting insulin if po intake improves DVT PX : heparin SQ Stool for c. diff toxin/antigen, culture, O&P when stool specimen available Obtain previous records from [facility]. He states that he was admitted there 03/01 around Thanksgiving Supportive measures Poor follow-up.
[2019-05-26] MEDS: ATORVASTATIN CA 20 MG TABLET (FP) PO SCH (21:28)
[2019-05-26] MEDS: QUEtiapine FUMARATE 200 MG TABLET PO SCH (21:29)
[2019-05-26] MEDS: MELATONIN 5 MG TABLETS PO PRN (21:36)
[2019-05-27] MEDS: HEPARIN NA (PORCINE) 5,000 UNITS/ML 1ML VIAL SQ SCH ×2 (06:23→14:44)
[2019-05-27] MEDS: METHADONE HCL 40 MG DISPERSABLE TABLET PO SCH (06:23)
[2019-05-27] MEDS: INSULIN SLIDING SCALE (NOVOLOG) 1 VIAL SQ SCH ×2 (06:28→12:40)
[2019-05-27] MEDS ORDERED: PT OWN MED DRAWER 7, Y5N ONE ×2 (08:50→11:20)
--- NOTE | 2019-05-27 08:51 | PN.GI ---
GI Progress Note Subjective: Was nauseaous, had vomiting yesterday along with diarrhea States that he is hungry and wants to eat No diarrhea overnight - Objective Vital Signs: Vital Signs Temperature 98.2 F 05/27/19 06:00 Pulse Rate 74 05/26/19 22:00 Respiratory Rate 18 05/26/19 22:00 Blood Pressure 149/93 05/27/19 06:00 O2 Sat by Pulse Oximetry (%) 98 05/26/19 21:00 Constitutional: Calm Eyes: No: Sclera Icterus Cardiovascular: Yes: Regular Rate and Rhythm Respiratory: Yes: CTA Bilaterally Gastrointestinal Inspection: No: Distention ...Auscultate: Yes: Normoactive Bowel Sounds ...Palpate: Yes: Soft. No: Hepatomegaly, Splenomegaly, Tenderness ...Percussion: No: Tympanitic Edema: No (No LE edema) Neurological: Yes: Alert Labs: CBC, BMP 05/25/19 08:05 05/26/19 06:30 INR, PTT INR 1.13 (0.83-1.09) H 05/24/19 05:47 Hepatic Panel Total Bilirubin 0.2 mg/dL (0.2-1) 05/25/19 08:05 AST 15 U/L (15-37) 05/25/19 08:05 ALT 24 U/L (13-61) 05/25/19 08:05 Alkaline Phosphatase 117 U/L (45-117) 05/25/19 08:05 Albumin 2.8 g/dl (3.4-5.0) L 05/25/19 08:05 Problem List - Problems (1) Diarrhea Assessment/Plan: If cannot tolerate PO, check AXR and change to clears If diarrhea persists, stool for C. Diff toxin/Ag Stopped oral iron Code(s): R19.7 - DIARRHEA, UNSPECIFIED Qualifiers: Diarrhea type: unspecified type Qualified Code(s): R19.7 - Diarrhea, unspecified
[2019-05-27] MEDS ORDERED: NIFEdipine E.R. 30 MG TABLET PO SCH (10:00)
--- NOTE | 2019-05-27 10:40 | DS ---
Physical Exam: SUBJECTIVE: Patient seen and examined at the bedside. Patient had one episode of loose stools overnight and one episode of emesis yesterday. After he had the emesis episode he tolerated a diet. Complained of abdominal pain and mild nausea. Denied cp, sob, fever, chills, dizziness, lightheadedness, numbness, tingling. OBJECTIVE: Vital Signs Period Temp Pulse Resp BP Sys/Lopez Pulse Ox Last 24 Hr 98.0 F-98.2 F 72-111 18-20 122-149/90-93 98 PHYSICAL EXAM GENERAL: The patient is awake, alert, and fully oriented, in no acute distress. EYES: PERRL, extraocular movements intact, sclera anicteric, conjunctiva clear. ENT: Oropharynx clear without exudates, moist mucous membranes. LUNGS: Breath sounds equal, clear to auscultation bilaterally, no wheezes, no crackles, no accessory muscle use. HEART: Regular rate and rhythm, S1, S2 without murmur, rub. ABDOMEN: Soft, mildly tender to palpation diffusely, nondistended, normoactive bowel sounds, no rebound tenderness, no masses. EXTREMITIES: 2+ pulses, warm, well-perfused, no edema. Mildly tender to touch on the R foot, warmth compared with R foot. NEUROLOGICAL: Cranial nerves II through XII grossly intact. 5/5 muscle strength bilaterally upper and lower extremities. PSYCH: Normal mood, normal affect. SKIN: varicose veins and hyperpigmentation of the feet. LABS Laboratory Results - last 24 hr 05/26/19 05/26/19 05/26/19 11:35 17:24 21:30 POC Glucometer 149 316 101 05/27/19 06:26 POC Glucometer 218 HOSPITAL COURSE: Dane Whitmore 53 year old male with a past medical history of HTN, CKD, GERD, type 2 DM, chronic pancreatitis & CBD dilatation, EtOH abuse, opioid depenence on 80mg methadone ([facility] in [place]), COPD admitted for acute diarrheal illness. Patient ceased having liquid stools on admission. C diff exam was not performed as patient was having solid stool. Began to tolerate diet well and was maintained on zofran and Tylenol for pain. CT Abd/pelvis noted Mildly increased fluid is seen within the colon and small bowel without definite associated wall edema - ? diarrheal illness. In comparison to a prior CT study of 02/18/2019 apparent interval development of slightly increased mesenteric density is seen centrally with associated development of several slightly prominent mesenteric lymph nodes in the same region. This appearance may be on the basis of clinical or subclinical mesenteric panniculitis. Correlation with 2 month follow-up CT is suggested to document stability/resolution and lack of developing pathology. Chronic calcific pancreatitis is again noted. As on prior studies there is mild chronic common bile duct dilatation. GI was consulted and advised that patient follow up in the outpatient clinic as C diff was unlikely in this setting. Patient had ANGELO and had improved by day of discharge. Was advised to avoid nephrotoxic agents. Patient had R first toe pain and had elevated uric acid. Was started on prednisone and potassium citrate for 5 day course and was advised to follow up with his PCP and with GI. Patient was advised not to consume alcoholic beverages, shellfish, and red meats. Was advised to follow up with addiction medicine, [facility], for continued treatment of his alcohol abuse disorder. Patient was started on a 5 day course of prednisone and potassium citrate and advised to follow up with PCP and GI. Was advised to follow a low fiber diet. He had appealed discharge and stayed additional days. Was continued on vancomycin 125mg q6h, Bacid and was advised to follow up with GI. All stool studies were negative by day of discharge. Patient was discharged in stable medical condition. Date of Admission:05/23/19 Date of Discharge: 05/27/19 Minutes to complete discharge: 35 Discharge Summary Problems reviewed: Yes Reason For Visit: ACUTE KIDNEY INJURY,GASTROESOPHAGEAL REFLUX DISEAS Current Active Problems GERD (gastroesophageal reflux disease) (Chronic) Opioid dependence on agonist therapy (Chronic) Condition: Stable - Instructions Diet, Activity, Other Instructions: You were admitted for diarrhea. Your diarrhea had resolved. You had a CT scan done which showed some changes in your bowels and the fat surrounding your bowels. You are advised to follow up with a [facility] (stomach, liver, interstine doctor) and to have a repeat CT scan of your abdomen and pelvis in 2 months to assess for any progression. You tested negative for C diff infection. MEDICATIONS STOP taking Creon, and follow up with your [facility] assisted living. START to take prednisone 30mg (3 x 10mg = 30mg ) once a day for 5 days and follow up with your primary care doctor. START to take potassium citrate once a day for 5 days and follow up with your primary care doctor. please follow up with your primary care doctor , since you have gout which you are getting treatment for. START to take vancomycin 2.5mL every 6 hours for 10 days. START to take Bacid 1 capsule daily for 10 days. REFERRALS Please follow up with your primary care doctor within 1 week. If you do not have a primary care doctor you may follow with the [facility] for which the information is provided. Please follow up with the gastroenterology, Dr. Manley, within 1 week. SPECIAL INSTRUCTIONS Please refrain from drinking while you are on medications. Please follow up with the [facility] for alcohol rehabilitation. Please eat a diet low in fiber. stay away from milk product, sea food, red meat , alcohol. If you have any symptoms of chest pain, shortness of breath, continued unremitting diarrhea, bloody stools, vomiting, fevers, or any other general feelings of unwellness, please call 911 or go to your nearest emergency room. Referrals: [facility] [place] [Provider Group] - 1 Week Tom Manley DO [Staff Physician] - 2 Weeks Disposition: HOME - Home Medications Comprehensive Discharge Medication List: Ambulatory Orders Albuterol Sulfate Inhaler - [Ventolin HFA Inhaler -] 2 inh IH Q4H PRN #1 inh 06/01 Aspirin [Aspirin EC] 81 mg PO DAILY #14 tablet. 03/14/19 Atorvastatin Ca [Lipitor] 20 mg PO HS #14 tablet 03/14/19 Famotidine 20 mg PO BID #28 tablet 03/14/19 Ferrous Sulfate [Feosol] 325 mg PO DAILY #14 tab 03/14/19 Glipizide 5 mg PO DAILY #14 tablet 03/14/19 Lisinopril [Prinivil] 40 mg PO DAILY@0600 #14 tablet 03/14/19 Nifedipine ER [Procardia XL -] 1 tablet PO DAILY #14 tab.er.24 03/14/19 Quetiapine Fumarate [Seroquel -] 200 mg PO HS #30 tablet 03/14/19 Tamsulosin HCl [Flomax -] 0.4 mg PO DAILY@0830 #14 cap.er.24h 03/14/19 Topiramate [Topamax -] 25 mg PO BID #28 tablet 03/14/19 Insulin Glargine,Hum.rec.anlog [Lantus Solostar PEN -] 15 ml SQ HS 30 Days #1 ins 03/15/19 Insulin Sliding Scale [Novolog Vial Sliding Scale -] 1 vial SQ ACHS #2 units 06/29 Isopropyl Alcohol [Alcoh-Wipe] 1 each ACBK #1 towelette 03/15/19 Methadone (Detox) [Dolophine -] 80 mg PO DAILY@0600 05/24/19 Potassium Citrate [Potassium Citrate ER] 10 meq PO DAILY #5 tablet.er 05/25/19 Prednisone 30 mg PO DAILY #15 tablet 05/25/19 Lactobacillus Acidophilus [Bacid -] 1 each PO DAILY #10 tab 05/27/19 Vancomycin Oral Solution 125 mg PO Q6H #100 ml 05/27/19 Problem List - Problems (1) GERD (gastroesophageal reflux disease) Code(s): K21.9 - GASTRO-ESOPHAGEAL REFLUX DISEASE WITHOUT ESOPHAGITIS Qualifiers: Esophagitis presence: esophagitis presence not specified Qualified Code(s) : K21.9 - Gastro-esophageal reflux disease without esophagitis (2) Opioid dependence on agonist therapy Code(s): F11.20 - OPIOID DEPENDENCE, UNCOMPLICATED (3) ANGELO (acute kidney injury) Code(s): N17.9 - ACUTE KIDNEY FAILURE, UNSPECIFIED (4) Diarrhea Code(s): R19.7 - DIARRHEA, UNSPECIFIED Qualifiers: Diarrhea type: unspecified type Qualified Code(s): R19.7 - Diarrhea, unspecified (5) Alcohol dependence Code(s): F10.20 - ALCOHOL DEPENDENCE, UNCOMPLICATED Qualifiers: Substance use status: uncomplicated Qualified Code(s): F10.20 - Alcohol dependence, uncomplicated (6) Asthma Code(s): J45.909 - UNSPECIFIED ASTHMA, UNCOMPLICATED Qualifiers: Asthma severity: mild Asthma persistence: intermittent Asthma complication type: with status asthmaticus Qualified Code(s): J45.22 - Mild intermittent asthma with status asthmaticus (7) BPH (benign prostatic hyperplasia) Code(s): N40.0 - BENIGN PROSTATIC HYPERPLASIA WITHOUT LOWER URINRY TRACT SYMP Qualifiers: Lower urinary tract symptom detail: unspecified (8) Benzodiazepine dependence Code(s): F13.20 - SEDATIVE, HYPNOTIC OR ANXIOLYTIC DEPENDENCE, UNCOMPLICATED (9) Bipolar disorder Code(s): F31.9 - BIPOLAR DISORDER, UNSPECIFIED (10) COPD (chronic obstructive pulmonary disease) Code(s): J44.9 - CHRONIC OBSTRUCTIVE PULMONARY DISEASE, UNSPECIFIED Qualifiers: COPD type: emphysema Emphysema type: unilateral Qualified Code(s): J43.0 - Unilateral pulmonary emphysema [MacLeod's syndrome] (11) Cannabis dependence Code(s): F12.20 - CANNABIS DEPENDENCE, UNCOMPLICATED (12) DM2 (diabetes mellitus, type 2) Code(s): E11.9 - TYPE 2 DIABETES MELLITUS WITHOUT COMPLICATIONS Qualifiers: Diabetes mellitus mcc insulin use: 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 Diabetes mellitus complication status: with hyperglycemia Qualified Code(s): E11.65 - Type 2 diabetes mellitus with hyperglycemia; Z79.4 - termite control technician (current) use of insulin (13) Diabetic neuropathy Code(s): E11.40 - TYPE 2 DIABETES MELLITUS WITH DIABETIC NEUROPATHY, UNSP (14) History of pancreatitis Code(s): Z87.19 - PERSONAL HISTORY OF OTHER DISEASES OF THE DIGESTIVE SYSTEM (15) Hypercholesteremia Code(s): E78.0 - PURE HYPERCHOLESTEROLEMIA * DO NOT USE * (16) Hypertension Code(s): I10 - ESSENTIAL (PRIMARY) HYPERTENSION Qualifiers: Hypertension type: essential hypertension Qualified Code(s): I10 - Essential (primary) hypertension (17) Methadone maintenance therapy patient Code(s): F11.20 - OPIOID DEPENDENCE, UNCOMPLICATED (18) Sedative dependence Code(s): F13.20 - SEDATIVE, HYPNOTIC OR ANXIOLYTIC DEPENDENCE, UNCOMPLICATED This patient is new to me today: No Emergency Visit: Yes ED Registration Date: 05/23/19 Care time: The patient presented to the Emergency Department on the above date and was hospitalized for further evaluation of their emergent condition. Critical Care patient: No - Discharge Referral Referred to [facility] Yes Physician Referral: Enrike Manley DO (GI)
[2019-05-27] MEDS: LIPASE/PROTEASE/AMYLASE 6,000 UNIT CAPSULE PO SCH (11:03)
[2019-05-27] MEDS: THIAMINE HCL 100 MG TABLET (FP) PO SCH (11:04)
[2019-05-27] MEDS: TAMSULOSIN HCL 0.4 MG CAP PO SCH (11:04)
[2019-05-27] MEDS: POTASSIUM CITRATE/CITRIC ACID 2 MEQ/ML ML PO SCH (11:04)
[2019-05-27] MEDS: FOLIC ACID 1 MG TABLET (FP) PO SCH (11:05)
[2019-05-27] MEDS: TOPIRAMATE 25 MG TABLET (FP) PO SCH (11:05)
[2019-05-27] MEDS: PANTOPRAZOLE 40 MG TABLET PO SCH (11:05)
[2019-05-27] MEDS: MULTIVITAMINS (DAILY MVI) TABLET (FP) PO SCH (11:05)
[2019-05-27] MEDS: BUDESONIDE/FORMETEROL FUMARATE 80/4.5 mcg INHALER IH SCH (11:08)
[2019-05-27 15:00] VITALS: BP 129/81; PULSE 77; TEMP 98.1
--- NOTE | 2019-05-27 15:58 | PN ---
Progress Note, Physician Chief Complaint: Pt seen and examined at bedside. He is awake and alert. He denies dysuria or hematuria. - Objective Vital Signs: Vital Signs Temperature 98.1 F 05/27/19 10:00 Pulse Rate 77 05/27/19 10:00 Respiratory Rate 18 05/27/19 10:00 Blood Pressure 129/81 05/27/19 10:00 O2 Sat by Pulse Oximetry (%) 97 05/27/19 09:00 Constitutional: Yes: Calm Eyes: Yes: Conjunctiva Clear HENT: Yes: Atraumatic Cardiovascular: Yes: S1, S2 Respiratory: Yes: CTA Bilaterally Gastrointestinal: Yes: Soft Genitourinary: Yes: WNL Musculoskeletal: Yes: WNL Edema: No Neurological: Yes: Oriented Psychiatric: Yes: Oriented Labs: CBC, BMP 05/25/19 08:05 05/26/19 06:30 INR, PTT INR 1.13 (0.83-1.09) H 05/24/19 05:47 Problem List - Problems (1) ANGELO (acute kidney injury) Code(s): N17.9 - ACUTE KIDNEY FAILURE, UNSPECIFIED (2) Diarrhea Code(s): R19.7 - DIARRHEA, UNSPECIFIED Qualifiers: Diarrhea type: unspecified type Qualified Code(s): R19.7 - Diarrhea, unspecified Assessment/Plan Impression 1. ANGELO 2. opioid dependence 3. diarrhea 4. ckd 5. dm 6. htn 7. gerd 8. renal cyst Plan - no new labs - will need outpt follow up - can get ckd workup as outpt - avoid nsaids - echogenic kidneys on ultrasound
--- NOTE | 2019-05-27 18:05 | PN ---
Teaching Attending Note Name of Resident: Jovani Mcgraw ATTENDING PHYSICIAN STATEMENT I saw and evaluated the patient. I reviewed the resident's note and discussed the case with the resident. I agree with the resident's findings and plan as documented. SUBJECTIVE: Patient is comfortable with no acute distress. Vital Signs Temperature 98.1 F 05/27/19 10:00 Pulse Rate 77 05/27/19 10:00 Respiratory Rate 18 05/27/19 10:00 Blood Pressure 129/81 05/27/19 10:00 O2 Sat by Pulse Oximetry (%) 97 05/27/19 09:00 GENERAL: The patient is awake, alert, and fully oriented, in no acute distress. HEAD: Normal with no signs of trauma. EYES: PERRL, extraocular movements intact, sclera anicteric, conjunctiva clear. ENT: Ears normal, oropharynx clear without exudates, moist mucous membranes. NECK: Trachea midline, full range of motion, supple. LUNGS: Breath sounds equal, clear to auscultation bilaterally, no wheezes, no crackles, no accessory muscle use. HEART: tachycardic , S1, S2 positive without any murmur, no rub or gallop. ABDOMEN: Soft, NT, ND, normoactive bowel sounds, no guarding, no rebound, no hepatosplenomegaly, no masses. EXTREMITIES: 2+ pulses, warm, well-perfused, no edema. NEUROLOGICAL: Cranial nerves II through XII grossly intact. Normal speech, gait not observed. PSYCH: Normal mood, normal affect. SKIN: Warm, dry, normal turgor, no rashes or lesions noted CBCD WBC 9.9 K/mm3 (4.0-10.0) 05/25/19 08:05 RBC 3.11 M/mm3 (4.00-5.60) L 05/25/19 08:05 Hgb 10.1 GM/dL (11.7-16.9) L 05/25/19 08:05 Hct 30.0 % (35.4-49) L 05/25/19 08:05 MCV 96.4 fl (80-96) H 05/25/19 08:05 MCHC 33.5 g/dl (32.0-35.9) 05/25/19 08:05 RDW 14.7 % (11.9-15.9) 05/25/19 08:05 Plt Count 167 K/MM3 (134-434) 05/25/19 08:05 MPV 9.5 fl (7.5-11.1) 05/25/19 08:05 CMP Sodium 141 mmol/L (136-145) 05/26/19 06:30 Potassium 4.5 mmol/L (3.5-5.1) 05/26/19 06:30 Chloride 115 mmol/L (98-107) H 05/26/19 06:30 Carbon Dioxide 19 mmol/L (21-32) L 05/26/19 06:30 Anion Gap 7 MMOL/L (8-16) L 05/26/19 06:30 BUN 31.5 mg/dL (7-18) H 05/26/19 06:30 Creatinine 2.3 mg/dL (0.55-1.3) H 05/26/19 06:30 Random Glucose 334 mg/dL (74-106) H 05/26/19 06:30 Calcium 8.2 mg/dL (8.5-10.1) L 05/26/19 06:30 Total Bilirubin 0.2 mg/dL (0.2-1) 05/25/19 08:05 AST 15 U/L (15-37) 05/25/19 08:05 ALT 24 U/L (13-61) 05/25/19 08:05 Alkaline Phosphatase 117 U/L (45-117) 05/25/19 08:05 Total Protein 6.2 g/dl (6.4-8.2) L 05/25/19 08:05 Albumin 2.8 g/dl (3.4-5.0) L 05/25/19 08:05 CARDIAC ENZYMES Creatine Kinase 32 U/L (26-308) 05/23/19 22:13 Troponin I < 0.02 ng/ml (0.00-0.05) 05/23/19 22:13 Home Medications Medication Instructions Recorded Albuterol Sulfate Inhaler - 2 inh IH Q4H PRN #1 inh 03/14/19 [Ventolin HFA Inhaler -] Aspirin [Aspirin EC] 81 mg PO DAILY #14 tablet. 03/14/19 Atorvastatin Ca [Lipitor] 20 mg PO HS #14 tablet 03/14/19 Famotidine 20 mg PO BID #28 tablet 03/14/19 Ferrous Sulfate [Feosol] 325 mg PO DAILY #14 tab 03/14/19 Glipizide 5 mg PO DAILY #14 tablet 03/14/19 Lipase/Protease/Amylase [Erich Camejo 4 cap PO BID #60 capsule. 03/14/19 6,000 Units Capsule] Lisinopril [Prinivil] 40 mg PO DAILY@0600 #14 tablet 03/14/19 Nifedipine ER [Procardia XL -] 1 tablet PO DAILY #14 tab.er.24 03/14/19 Quetiapine Fumarate [Seroquel -] 200 mg PO HS #30 tablet 03/14/19 Tamsulosin HCl [Flomax -] 0.4 mg PO DAILY@0830 #14 cap.er.24h 03/14/19 Topiramate [Topamax -] 25 mg PO BID #28 tablet 03/14/19 Insulin Glargine,Hum.rec.anlog 15 ml SQ HS 30 Days #1 ins 03/15/19 [Lantus Solostar PEN -] Insulin Sliding Scale [Novolog 1 vial SQ ACHS #2 units 03/15/19 Vial Sliding Scale -] Isopropyl Alcohol [Alcoh-Wipe] 1 each ACBK #1 towelette 03/15/19 Methadone (Detox) [Dolophine -] 80 mg PO DAILY@0600 05/24/19 Microbiology 05/23/19 17:50 Urine - Urine Clean Catch Urine Culture - Final Group D Strep Or Entero Coccus 05/24/19 08:54 Blood - Peripheral Venous Blood Culture - Preliminary NO GROWTH OBTAINED AFTER 24 HOURS, INCUBATION TO CONTINUE FOR 4 DAYS. 05/24/19 08:45 Blood - Peripheral Venous Blood Culture - Preliminary NO GROWTH OBTAINED AFTER 24 HOURS, INCUBATION TO CONTINUE FOR 4 DAYS. ASSESSMENT AND PLAN: Patient is a 53 yom with PMHx of recurrent C diff, IDDM, HTN, GERD, polysubstance abuse, chronic pancreatitis , COPD, BPH, ETOH use, CKD, who was sent from [facility] rehab for diarrhea. # s/p Acute Diarrhea with N/V improved, stated that he had another episode of diarrhea last night possible due to c diff colitis, with Hx of Cdiff. - cont po vanco empirically. cont IVF , stool cx and Fecal WBC , negative so far. #Panniculitis as per CT result: Gi on the case # Mildly dilated CBD on CT: seen on previous USs and Cts in 2013. on pancreatic enzymes continue # ANGELO o n CKD: Base line 1.3-1.9 possible due to diarrhea and vomiting . already responded to IVF . - renal US with no hydro . CT with no obstructing stones . - renal cyct needs to be followed as out pt # Polysubstance abuse: finished ETOH detox at [facility], [place], cont methadone , folic and thiamine # IDDM: cont SSI for now, resume levemir DVT PX : heparin SQ Patient has poor follow-up. can follow up with the resident's clinic
--- NOTE | 2019-05-28 07:58 | PN.GI ---
GI Progress Note - Objective Vital Signs: Vital Signs Temperature 98.1 F 05/27/19 10:00 Pulse Rate 77 05/27/19 10:00 Respiratory Rate 18 05/27/19 10:00 Blood Pressure 129/81 05/27/19 10:00 O2 Sat by Pulse Oximetry (%) 97 05/27/19 09:00 Labs: CBC, BMP 05/25/19 08:05 05/26/19 06:30 INR, PTT INR 1.13 (0.83-1.09) H 05/24/19 05:47
== END 2019-05-27 15:25 | disposition home or self-care (01) | DRG 254 ==
LOC: JER 15:54 → JERBED 18:49 → J8W 05-24 14:01
PROVIDERS: ADMIT Internal Medicine; ATTEND Internal Medicine
DX: K65.4 Sclerosing mesenteritis (principal); F10.10 Alcohol abuse, uncomplicated; K21.9 Gastro-esophageal reflux disease without esophagitis; R10.9 Unspecified abdominal pain; I10 Essential (primary) hypertension; D72.829 Elevated white blood cell count, unspecified; J44.9 Chronic obstructive pulmonary disease, unspecified; I95.1 Orthostatic hypotension; N18.9 Chronic kidney disease, unspecified; R19.7 Diarrhea, unspecified; N28.1 Cyst of kidney, acquired; K86.1 Other chronic pancreatitis; F11.20 Opioid dependence, uncomplicated; N17.9 Acute kidney failure, unspecified; E11.65 Type 2 diabetes mellitus with hyperglycemia; K83.8 Other specified diseases of biliary tract; N40.0 Benign prostatic hyperplasia without lower urinary tract symptoms; E86.0 Dehydration
CPT/HCPCS: 36415; 71045-TC-FY; 74176-TC; 76775-TC; 80048; 80051; 80053; 80307; 81003; 82272; 82438; 82550; 82962; 83036; 83605; 83690; 83735; 84302; 84484; 84550; 84999; 85025; 85610; 85730; 87040; 87045; 87046; 87086; 87177; 87205; 87207; 87209; 87324; 87328; 87329; 87425; 87449; 87804; 97116-GP; 97161-GP; 99285-25; J0131; J1644; J7030

== ENCOUNTER 2019-06-19 20:57 | Inpatient (IN) | payer OTHER ==
[2019-06-19 21:35] VITALS: BMI 26.6
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
[2019-06-19] MEDS ORDERED: ALBUTEROL SO4 8 GM HFA INHALER IH PRN (22:35)
[2019-06-19] MEDS ORDERED: ONDANSETRON *ODT* 4 MG TABLET SL ONE (22:38)
[2019-06-19] MEDS ORDERED: MENTHOL/PHENOL 1 EACH UD MM PRN (22:38)
[2019-06-19] MEDS ORDERED: ACETAMINOPHEN 325 MG TABLET (FP) PO PRN ×2 (22:38)
[2019-06-19] MEDS ORDERED: MAGNESIUM HYDROX 2400MG/30ML ORAL SUSPENSION 30 ML CUP PO PRN (22:38)
[2019-06-19] MEDS ORDERED: BISMUTH SUBSALICYLATE 524 MG/30 ML UD PO PRN (22:38)
[2019-06-19] MEDS ORDERED: guaiFENesin 200 MG/10 ML 10 ML UNIT-DOSE CUPS PO PRN (22:38)
[2019-06-19] MEDS ORDERED: NICOTINE POLACRILEX 2 MG GUM BUC PRN (22:38)
[2019-06-19] MEDS ORDERED: DICYCLOMINE HCL 10 MG CAPSULE PO PRN (22:38)
[2019-06-19] MEDS ORDERED: MAG HYDROX/AL HYDROX/SIMETH 30 ML UNIT-DOSE CUP PO PRN (22:38)
[2019-06-19] MEDS ORDERED: METHOCARBAMOL 500 MG TABLET PO PRN (22:38)
[2019-06-19] MEDS ORDERED: P-EPHED 60MG/TRIPROLIDI 2.5MG TABLET PO PRN (22:38)
[2019-06-19] MEDS ORDERED: IBUPROFEN 400 MG TABLET (FP) PO PRN (22:38)
[2019-06-19] MEDS ORDERED: MAGNESIUM CITRATE 300 ML BOTTLE PO PRN (22:38)
[2019-06-19] MEDS ORDERED: chlordiazePOXIDE HCL 25 MG CAPSULE PO PRN (22:38)
[2019-06-19] MEDS ORDERED: LORazepam 1 MG TABLET PO PRN (22:43)
[2019-06-19] MEDS ORDERED: chlordiazePOXIDE HCL 25 MG CAPSULE PO SCH (23:00)
[2019-06-20] MEDS: LORazepam 2 MG TABLET PO SCH ×5 (00:42→22:23)
[2019-06-20] MEDS: INSULIN (LEVEMIR) 100 UNITS/ML UNITS SQ SCH ×2 (00:42→22:23)
[2019-06-20] MEDS: LISINOPRIL 20 MG TABLET (FP) PO SCH (06:13)
[2019-06-20] MEDS: INSULIN SLIDING SCALE (NOVOLOG) 1 VIAL SQ SCH ×3 (07:27→17:00)
[2019-06-20] MEDS: glipiZIDE 5 MG TABLET (FP) PO SCH (07:28)
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
[2019-06-20] MEDS ORDERED: METHADONE HCL 10 MG TABLET PO ONE (08:55)
[2019-06-20] MEDS ORDERED: METHADONE 80 MG, METHADONE 10 MG PO ONE (09:10)
[2019-06-20] MEDS ORDERED: METHADONE HCL 10 MG TABLET ONE (09:27)
[2019-06-20] MEDS ORDERED: METHADONE HCL 40 MG DISPERSABLE TABLET ONE (09:28)
[2019-06-20 10:16] LABS: HEMATOCRIT 27.4 % (35.4-49); HEMOGLOBIN 9.1 GM/dL (11.7-16.9); MCH 32.3 pg (25.7-33.7); MCHC 33.1 g/dl (32.0-35.9); MEAN CELL VOLUME 97.6 fl (80-96); MEAN PLT VOLUME 8.5 fl (7.5-11.1); PLATELET COUNT 239 K/MM3 (134-434); RBC 2.81 M/mm3 (4.00-5.60); RDW 16.8 % (11.9-15.9); WHITE BLOOD COUNT 5.1 K/mm3 (4.0-10.0)
[2019-06-20 10:33] LABS: ALBUMIN 2.9 g/dl (3.4-5.0); BILIRUBIN,TOTAL 0.5 mg/dL (0.2-1); BLOOD UREA NITROGEN 31.2 mg/dL (7-18); CALCIUM 7.9 mg/dL (8.5-10.1); CREATININE 1.8 mg/dL (0.55-1.3); POTASSIUM 3.8 mmol/L (3.5-5.1); TOT PROT 6.7 g/dl (6.4-8.2)
[2019-06-20] MEDS: TAMSULOSIN HCL 0.4 MG CAP PO SCH (10:36)
[2019-06-20] MEDS: PRENATAL VITAMINS W/ FOLIC ACID TABLET (FP) PO SCH (10:36)
[2019-06-20] MEDS: ASPIRIN COATED 81 MG TABLET.EC PO SCH (10:36)
[2019-06-20] MEDS: NIFEdipine E.R. 30 MG TABLET PO SCH (10:37)
[2019-06-20] MEDS: FAMOTIDINE 20 MG TABLET PO SCH ×2 (10:37→22:27)
[2019-06-20] MEDS: NICOTINE 14 MG/24 HOURS TOPICAL PATCH TD SCH (10:38)
--- NOTE | 2019-06-20 12:00 | PN ---
[facility] CIWA - CIWA Score Nausea/Vomitin-No Nausea/No Vomiting Muscle Tremors: 3 Anxiety: 3 Agitation: 3 Paroxysmal Sweats: 3 Orientation: 0-Oriented Tacttile Disturbances: 0-None Auditory Disturbances: 0-None Visual Disturbances: 0-None Headache: 0-None Present CIWA-Ar Total Score: 12 BHS Progress Note (SOAP) Subjective: sweats tired shakes irritable Objective: 06/20/19 12:00 Vital Signs Temperature 98.2 F 06/20/19 09:55 Pulse Rate 80 06/20/19 09:55 Respiratory Rate 18 06/20/19 09:55 Blood Pressure 150/95 06/20/19 09:55 O2 Sat by Pulse Oximetry (%) Laboratory Tests 06/20/19 06/20/19 06/20/19 00:41 06:12 07:20 WBC RBC Hgb Hct MCV MCH MCHC RDW Plt Count MPV Sodium Potassium Chloride Carbon Dioxide Anion Gap BUN Creatinine Est GFR (CKD-EPI)AfAm Est GFR (CKD-EPI)NonAf POC Glucometer 135 54 77 Random Glucose Calcium Total Bilirubin AST ALT Alkaline Phosphatase Total Protein Albumin RPR Titer 06/20/19 06/20/19 06/20/19 07:50 07:50 07:50 WBC 5.1 RBC 2.81 L Hgb 9.1 L Hct 27.4 L MCV 97.6 H MCH 32.3 MCHC 33.1 RDW 16.8 H Plt Count 239 D MPV 8.5 D Sodium 147 H Potassium 3.8 Chloride 116 H Carbon Dioxide 25 Anion Gap 6 L BUN 31.2 H Creatinine 1.8 H Est GFR (CKD-EPI)AfAm 48.04 Est GFR (CKD-EPI)NonAf 41.45 POC Glucometer Random Glucose 62 L Calcium 7.9 L Total Bilirubin 0.5 AST 33 ALT 37 Alkaline Phosphatase 155 H Total Protein 6.7 Albumin 2.9 L RPR Titer Nonreactive 06/20/19 11:19 WBC RBC Hgb Hct MCV MCH MCHC RDW Plt Count MPV Sodium Potassium Chloride Carbon Dioxide Anion Gap BUN Creatinine Est GFR (CKD-EPI)AfAm Est GFR (CKD-EPI)NonAf POC Glucometer 91 Random Glucose Calcium Total Bilirubin AST ALT Alkaline Phosphatase Total Protein Albumin RPR Titer aaox3 ambulating no acute distress Assessment: 06/20/19 12:01 withdrawal sx Plan: continue detox increase fluids
[2019-06-20] MEDS: ATORVASTATIN CA 20 MG TABLET (FP) PO SCH (22:23)
[2019-06-20] MEDS: THIAMINE HCL 100 MG TABLET (FP) PO SCH (22:23)
[2019-06-20] MEDS: MELATONIN 5 MG TABLETS PO SCH (22:23)
[2019-06-21] MEDS ORDERED: METHADONE HCL 10 MG TABLET ONE (04:06)
[2019-06-21] MEDS ORDERED: METHADONE HCL 40 MG DISPERSABLE TABLET ONE (04:06)
[2019-06-21] MEDS ORDERED: chlordiazePOXIDE HCL 25 MG CAPSULE PO SCH (05:00)
[2019-06-21] MEDS ORDERED: METHADONE HCL 40 MG DISPERSABLE TABLET PO SCH (06:00)
[2019-06-21] MEDS: LISINOPRIL 20 MG TABLET (FP) PO SCH (06:05)
[2019-06-21] MEDS: LORazepam 1 MG TABLET PO SCH ×4 (06:05→22:01)
[2019-06-21] MEDS: METHADONE 80 MG, METHADONE 10 MG PO SCH (06:05)
[2019-06-21] MEDS: INSULIN SLIDING SCALE (NOVOLOG) 1 VIAL SQ SCH ×3 (07:04→17:03)
[2019-06-21] MEDS: glipiZIDE 5 MG TABLET (FP) PO SCH (07:28)
[2019-06-21] MEDS: NIFEdipine E.R. 30 MG TABLET PO SCH (10:15)
[2019-06-21] MEDS: TAMSULOSIN HCL 0.4 MG CAP PO SCH (10:15)
[2019-06-21] MEDS: ASPIRIN COATED 81 MG TABLET.EC PO SCH (10:15)
[2019-06-21] MEDS: NICOTINE 14 MG/24 HOURS TOPICAL PATCH TD SCH (10:15)
[2019-06-21] MEDS: PRENATAL VITAMINS W/ FOLIC ACID TABLET (FP) PO SCH (10:15)
[2019-06-21] MEDS: FAMOTIDINE 20 MG TABLET PO SCH ×2 (10:21→21:11)
[2019-06-21] MEDS: LOPERAMIDE HCL 2 MG CAPSULE PO PRN ×2 (12:00→19:23)
--- NOTE | 2019-06-21 12:27 | PN ---
S CIWA - CIWA Score Nausea/Vomitin-No Nausea/No Vomiting Muscle Tremors: 4-Moderate,w/Arms Extend Anxiety: 3 Agitation: 3 Paroxysmal Sweats: 1-Minimal Palms Moist Orientation: 0-Oriented Tacttile Disturbances: 0-None Auditory Disturbances: 0-None Visual Disturbances: 0-None Headache: 0-None Present CIWA-Ar Total Score: 11 BHS Progress Note (SOAP) Subjective: diarrhea sweats shakes anxiety Objective: 06/21/19 12:27 Vital Signs Temperature 98.1 F 06/21/19 08:40 Pulse Rate 77 06/21/19 08:40 Respiratory Rate 18 06/21/19 08:40 Blood Pressure 133/82 06/21/19 08:40 O2 Sat by Pulse Oximetry (%) Laboratory Tests 06/20/19 06/20/19 06/20/19 00:41 06:12 07:20 WBC RBC Hgb Hct MCV MCH MCHC RDW Plt Count MPV Sodium Potassium Chloride Carbon Dioxide Anion Gap BUN Creatinine Est GFR (CKD-EPI)AfAm Est GFR (CKD-EPI)NonAf POC Glucometer 135 54 77 Random Glucose Calcium Total Bilirubin AST ALT Alkaline Phosphatase Total Protein Albumin RPR Titer 06/20/19 06/20/19 06/20/19 07:50 07:50 07:50 WBC 5.1 RBC 2.81 L Hgb 9.1 L Hct 27.4 L MCV 97.6 H MCH 32.3 MCHC 33.1 RDW 16.8 H Plt Count 239 D MPV 8.5 D Sodium 147 H Potassium 3.8 Chloride 116 H Carbon Dioxide 25 Anion Gap 6 L BUN 31.2 H Creatinine 1.8 H Est GFR (CKD-EPI)AfAm 48.04 Est GFR (CKD-EPI)NonAf 41.45 POC Glucometer Random Glucose 62 L Calcium 7.9 L Total Bilirubin 0.5 AST 33 ALT 37 Alkaline Phosphatase 155 H Total Protein 6.7 Albumin 2.9 L RPR Titer Nonreactive 06/20/19 06/20/19 06/20/19 11:19 16:46 21:23 WBC RBC Hgb Hct MCV MCH MCHC RDW Plt Count MPV Sodium Potassium Chloride Carbon Dioxide Anion Gap BUN Creatinine Est GFR (CKD-EPI)AfAm Est GFR (CKD-EPI)NonAf POC Glucometer 91 288 110 Random Glucose Calcium Total Bilirubin AST ALT Alkaline Phosphatase Total Protein Albumin RPR Titer 06/21/19 06:09 WBC RBC Hgb Hct MCV MCH MCHC RDW Plt Count MPV Sodium Potassium Chloride Carbon Dioxide Anion Gap BUN Creatinine Est GFR (CKD-EPI)AfAm Est GFR (CKD-EPI)NonAf POC Glucometer 151 Random Glucose Calcium Total Bilirubin AST ALT Alkaline Phosphatase Total Protein Albumin RPR Titer aaox3 ambulating no acute distress Assessment: 06/21/19 12:27 withdrawals Plan: continue detox imodium prn increase fluids
[2019-06-21] MEDS: INSULIN (LEVEMIR) 100 UNITS/ML UNITS SQ SCH (21:09)
[2019-06-21] MEDS: ATORVASTATIN CA 20 MG TABLET (FP) PO SCH (21:10)
[2019-06-21] MEDS: QUEtiapine FUMARATE 200 MG TABLET PO SCH (21:10)
[2019-06-21] MEDS: THIAMINE HCL 100 MG TABLET (FP) PO SCH (21:11)
[2019-06-21] MEDS: MELATONIN 5 MG TABLETS PO SCH (21:11)
[2019-06-22] MEDS ORDERED: LORazepam 0.5 MG TABLET PO PRN
[2019-06-22] MEDS ORDERED: chlordiazePOXIDE HCL 10 MG CAPSULE PO PRN
[2019-06-22] MEDS: LOPERAMIDE HCL 2 MG CAPSULE PO PRN ×2 (01:17→16:11)
[2019-06-22] MEDS ORDERED: METHADONE HCL 40 MG DISPERSABLE TABLET ONE (04:31)
[2019-06-22] MEDS ORDERED: METHADONE HCL 10 MG TABLET ONE (04:31)
[2019-06-22] MEDS ORDERED: chlordiazePOXIDE HCL 10 MG CAPSULE PO SCH (05:00)
[2019-06-22] MEDS: METHADONE 80 MG, METHADONE 10 MG PO SCH (07:22)
[2019-06-22] MEDS: LISINOPRIL 20 MG TABLET (FP) PO SCH (07:23)
[2019-06-22] MEDS: LORazepam 0.5 MG TABLET PO SCH ×4 (07:23→22:14)
[2019-06-22] MEDS: glipiZIDE 5 MG TABLET (FP) PO SCH (07:28)
[2019-06-22] MEDS: INSULIN SLIDING SCALE (NOVOLOG) 1 VIAL SQ SCH ×3 (07:28→17:28)
[2019-06-22] MEDS: ASPIRIN COATED 81 MG TABLET.EC PO SCH (10:36)
[2019-06-22] MEDS: NICOTINE 14 MG/24 HOURS TOPICAL PATCH TD SCH (10:36)
[2019-06-22] MEDS: TAMSULOSIN HCL 0.4 MG CAP PO SCH (10:36)
[2019-06-22] MEDS: FAMOTIDINE 20 MG TABLET PO SCH ×2 (10:36→22:13)
[2019-06-22] MEDS: NIFEdipine E.R. 30 MG TABLET PO SCH (10:37)
[2019-06-22] MEDS: PRENATAL VITAMINS W/ FOLIC ACID TABLET (FP) PO SCH (10:37)
--- NOTE | 2019-06-22 11:27 | PN ---
S CIWA - CIWA Score Nausea/Vomitin-No Nausea/No Vomiting Muscle Tremors: 2 Anxiety: 1-Mildly Anxious Agitation: 1-Slight > Activity Paroxysmal Sweats: 1-Minimal Palms Moist Orientation: 0-Oriented Tacttile Disturbances: 0-None Auditory Disturbances: 0-None Visual Disturbances: 0-None Headache: 0-None Present CIWA-Ar Total Score: 5 BHS Progress Note (SOAP) Subjective: diarrhea Objective: 06/22/19 11:26 Vital Signs Temperature 97.6 F 06/22/19 08:52 Pulse Rate 103 H 06/22/19 08:52 Respiratory Rate 18 06/22/19 08:52 Blood Pressure 113/80 06/22/19 08:52 O2 Sat by Pulse Oximetry (%) aaox3 ambulating no acute distress Assessment: 06/22/19 11:26 mild withdrawals Plan: continue detox pepto or imodium prn d/c in am
[2019-06-22] MEDS: MELATONIN 5 MG TABLETS PO SCH (22:13)
[2019-06-22] MEDS: THIAMINE HCL 100 MG TABLET (FP) PO SCH (22:13)
[2019-06-22] MEDS: QUEtiapine FUMARATE 200 MG TABLET PO SCH (22:13)
[2019-06-22] MEDS: ATORVASTATIN CA 20 MG TABLET (FP) PO SCH (22:13)
[2019-06-22] MEDS: INSULIN (LEVEMIR) 100 UNITS/ML UNITS SQ SCH (22:14)
[2019-06-23] MEDS ORDERED: METHADONE HCL 40 MG DISPERSABLE TABLET ONE (04:48)
[2019-06-23] MEDS ORDERED: METHADONE HCL 10 MG TABLET ONE (04:48)
[2019-06-23] MEDS ORDERED: chlordiazePOXIDE HCL 10 MG CAPSULE PO SCH (05:00)
[2019-06-23] MEDS ORDERED: LORazepam 0.5 MG TABLET PO ONE (05:00)
[2019-06-23] MEDS: METHADONE 80 MG, METHADONE 10 MG PO SCH (05:56)
[2019-06-23] MEDS: LISINOPRIL 20 MG TABLET (FP) PO SCH (05:56)
[2019-06-23] MEDS: glipiZIDE 5 MG TABLET (FP) PO SCH (06:02)
[2019-06-23] MEDS: INSULIN SLIDING SCALE (NOVOLOG) 1 VIAL SQ SCH (06:59)
[2019-06-23] MEDS: LOPERAMIDE HCL 2 MG CAPSULE PO PRN (07:00)
--- NOTE | 2019-06-23 09:03 | DS ---
[facility] Detox Discharge Summary Admission Date: 06/19/19 Discharge Date: 06/23/19 - History Present History: Alcohol Dependence, Cannabis Dependence, Cocaine Dependence, Sedative Dependence, MMTP - Physical Exam Results Vital Signs: Vital Signs Temperature 97.3 F L 06/23/19 06:00 Pulse Rate 103 H 06/23/19 06:00 Respiratory Rate 18 06/23/19 06:00 Blood Pressure 119/87 06/23/19 06:00 O2 Sat by Pulse Oximetry (%) Pertinent Admission Physical Exam Findings: Vital Signs Temperature 97.3 F L 06/23/19 06:00 Pulse Rate 103 H 06/23/19 06:00 Respiratory Rate 18 06/23/19 06:00 Blood Pressure 119/87 06/23/19 06:00 O2 Sat by Pulse Oximetry (%) Laboratory Tests 06/20/19 06/20/19 06/20/19 00:41 06:12 07:20 WBC RBC Hgb Hct MCV MCH MCHC RDW Plt Count MPV Sodium Potassium Chloride Carbon Dioxide Anion Gap BUN Creatinine Est GFR (CKD-EPI)AfAm Est GFR (CKD-EPI)NonAf POC Glucometer 135 54 77 Random Glucose Calcium Total Bilirubin AST ALT Alkaline Phosphatase Total Protein Albumin RPR Titer T.pallidum Ab Interpret 06/20/19 06/20/19 06/20/19 07:50 07:50 07:50 WBC 5.1 RBC 2.81 L Hgb 9.1 L Hct 27.4 L MCV 97.6 H MCH 32.3 MCHC 33.1 RDW 16.8 H Plt Count 239 D MPV 8.5 D Sodium 147 H Potassium 3.8 Chloride 116 H Carbon Dioxide 25 Anion Gap 6 L BUN 31.2 H Creatinine 1.8 H Est GFR (CKD-EPI)AfAm 48.04 Est GFR (CKD-EPI)NonAf 41.45 POC Glucometer Random Glucose 62 L Calcium 7.9 L Total Bilirubin 0.5 AST 33 ALT 37 Alkaline Phosphatase 155 H Total Protein 6.7 Albumin 2.9 L RPR Titer Nonreactive T.pallidum Ab Interpret 06/20/19 06/20/19 06/20/19 07:50 11:19 16:46 WBC RBC Hgb Hct MCV MCH MCHC RDW Plt Count MPV Sodium Potassium Chloride Carbon Dioxide Anion Gap BUN Creatinine Est GFR (CKD-EPI)AfAm Est GFR (CKD-EPI)NonAf POC Glucometer 91 288 Random Glucose Calcium Total Bilirubin AST ALT Alkaline Phosphatase Total Protein Albumin RPR Titer T.pallidum Ab Interpret Cancelled 06/20/19 06/21/19 06/21/19 21:23 06:09 16:49 WBC RBC Hgb Hct MCV MCH MCHC RDW Plt Count MPV Sodium Potassium Chloride Carbon Dioxide Anion Gap BUN Creatinine Est GFR (CKD-EPI)AfAm Est GFR (CKD-EPI)NonAf POC Glucometer 110 151 121 Random Glucose Calcium Total Bilirubin AST ALT Alkaline Phosphatase Total Protein Albumin RPR Titer T.pallidum Ab Interpret 06/21/19 06/22/19 06/22/19 20:50 07:20 16:30 WBC RBC Hgb Hct MCV MCH MCHC RDW Plt Count MPV Sodium Potassium Chloride Carbon Dioxide Anion Gap BUN Creatinine Est GFR (CKD-EPI)AfAm Est GFR (CKD-EPI)NonAf POC Glucometer 197 85 113 Random Glucose Calcium Total Bilirubin AST ALT Alkaline Phosphatase Total Protein Albumin RPR Titer T.pallidum Ab Interpret 06/22/19 06/23/19 21:46 05:52 WBC RBC Hgb Hct MCV MCH MCHC RDW Plt Count MPV Sodium Potassium Chloride Carbon Dioxide Anion Gap BUN Creatinine Est GFR (CKD-EPI)AfAm Est GFR (CKD-EPI)NonAf POC Glucometer 131 85 Random Glucose Calcium Total Bilirubin AST ALT Alkaline Phosphatase Total Protein Albumin RPR Titer T.pallidum Ab Interpret aaox3 ambulating no acute distress lungs CTA - Treatment Hospital Course: Detox Protocol Followed, Detoxed Safely, Responded well, Discharged Condition Good, Rehab Referral Accepted - Medication Discharge Medications: Ambulatory Orders Albuterol Sulfate Inhaler - [Ventolin HFA Inhaler -] 2 inh IH Q4H PRN #1 inh 03/14/19 Aspirin [Aspirin EC] 81 mg PO DAILY #14 tablet.dr 03/14/19 Atorvastatin Ca [Lipitor] 20 mg PO HS #14 tablet 03/14/19 Famotidine 20 mg PO BID #28 tablet 03/14/19 Glipizide 5 mg PO DAILY #14 tablet 03/14/19 Lisinopril [Prinivil] 40 mg PO DAILY@0600 #14 tablet 03/14/19 Nifedipine ER [Procardia XL -] 1 tablet PO DAILY #14 tab.er.24 03/14/19 Quetiapine Fumarate [Seroquel -] 200 mg PO HS #30 tablet 03/14/19 Tamsulosin HCl [Flomax -] 0.4 mg PO DAILY@0830 #14 cap.er.24h 03/14/19 Topiramate [Topamax -] 25 mg PO BID #28 tablet 03/14/19 Insulin Glargine,Hum.rec.anlog [Lantus Solostar PEN -] 15 ml SQ HS 30 Days #1 ins 03/15/19 Insulin Sliding Scale [Novolog Vial Sliding Scale -] 1 vial SQ ACHS #2 units 03/15/19 Isopropyl Alcohol [Alcoh-Wipe] 1 each ACBK #1 towelette 03/15/19 Methadone (Detox) [Dolophine -] 90 mg PO DAILY@0600 05/24/19 Prednisone 30 mg PO DAILY #15 tablet 05/25/19 - Diagnosis (1) Alcohol dependence with uncomplicated withdrawal Current Visit: Yes Status: Chronic (2) Asthma Current Visit: Yes Status: Chronic Qualifiers: Asthma severity: mild Asthma persistence: intermittent Asthma complication type: with status asthmaticus Qualified Code(s): J45.22 - Mild intermittent asthma with status asthmaticus (3) BPH (benign prostatic hyperplasia) Current Visit: Yes Status: Chronic Qualifiers: Lower urinary tract symptom detail: unspecified (4) Bipolar disorder Current Visit: Yes Status: Chronic (5) Cannabis dependence Current Visit: Yes Status: Chronic (6) Sedative hypnotic or anxiolytic dependence Current Visit: Yes Status: Chronic (7) Substance-induced sleep disorder Current Visit: No Status: Acute (8) Anemia Current Visit: No Status: Chronic Qualifiers: Anemia type: unspecified type Qualified Code(s): D64.9 - Anemia, unspecified (9) Bipolar disorder Current Visit: No Status: Chronic (10) COPD (chronic obstructive pulmonary disease) Current Visit: No Status: Acute Qualifiers: COPD type: emphysema Emphysema type: unilateral Qualified Code(s): J43.0 - Unilateral pulmonary emphysema [MacLeod's syndrome] (11) DM2 (diabetes mellitus, type 2) Current Visit: No Status: Chronic Qualifiers: Diabetes mellitus terminologist insulin use: with group home use Diabetes mellitus complication status: with hyperglycemia Qualified Code(s): E11.65 - Type 2 diabetes mellitus with hyperglycemia; 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 (12) Diabetic neuropathy Current Visit: No Status: Chronic (13) GERD (gastroesophageal reflux disease) Current Visit: No Status: Chronic Qualifiers: Esophagitis presence: esophagitis presence not specified Qualified Code(s): K21.9 - Gastro-esophageal reflux disease without esophagitis (14) Heroin use Current Visit: No Status: Chronic (15) History of pancreatitis Current Visit: No Status: Chronic (16) Hypercholesteremia Current Visit: No Status: Chronic (17) Hypertension Current Visit: No Status: Chronic Qualifiers: Hypertension type: essential hypertension Qualified Code(s): I10 - Essential (primary) hypertension (18) Insomnia Current Visit: No Status: Chronic (19) Methadone maintenance therapy patient Current Visit: No Status: Chronic (20) Mood disorder Current Visit: No Status: Chronic (21) Nicotine dependence Current Visit: No Status: Chronic Qualifiers: Nicotine product type: cigarettes Substance use status: in withdrawal Qualified Code(s): F17.213 - Nicotine dependence, cigarettes, with withdrawal (22) Opioid dependence on agonist therapy Current Visit: No Status: Chronic (23) Sedative dependence Current Visit: No Status: Chronic (24) Sedative hypnotic or anxiolytic dependence Current Visit: No Status: Chronic (25) Substance-induced anxiety disorder Current Visit: No Status: Chronic (26) Substance-induced anxiety disorder Current Visit: No Status: Chronic (27) Substance-induced sleep disorder Current Visit: No Status: Chronic (28) Varicose vein of leg Current Visit: No Status: Chronic Qualifiers: Varicose vein complication: unspecified (29) ANGELO (acute kidney injury) Current Visit: No Status: Resolved (30) Diarrhea Current Visit: No Status: Resolved Qualifiers: Diarrhea type: unspecified type Qualified Code(s): R19.7 - Diarrhea, unspecified - AMA Did Patient Leave Against Medical Advice: No
[2019-06-23] MEDS: TAMSULOSIN HCL 0.4 MG CAP PO SCH (10:34)
[2019-06-23] MEDS: NICOTINE 14 MG/24 HOURS TOPICAL PATCH TD SCH (10:34)
[2019-06-23] MEDS: PRENATAL VITAMINS W/ FOLIC ACID TABLET (FP) PO SCH (10:34)
[2019-06-23] MEDS: FAMOTIDINE 20 MG TABLET PO SCH (10:34)
[2019-06-23] MEDS: ASPIRIN COATED 81 MG TABLET.EC PO SCH (10:34)
[2019-06-23 12:23] VITALS: BP 112/78; PULSE 93; TEMP 98.2
[2019-06-24] MEDS ORDERED: chlordiazePOXIDE HCL 10 MG CAPSULE PO ONE (05:00)
== END 2019-06-23 11:10 | disposition other institution (70) | DRG 773 ==
LOC: YASAS 20:57 → Y6N 23:05
PROVIDERS: ADMIT Allergy & Immunology; ATTEND Allergy & Immunology
PROC: HZ2ZZZZ Detoxification Services for Substance Abuse Treatment (ICD-10-PCS; principal; 2019-06-19)
DX: F10.230 Alcohol dependence with withdrawal, uncomplicated (principal); F11.20 Opioid dependence, uncomplicated; F13.20 Sedative, hypnotic or anxiolytic dependence, uncomplicated; F14.20 Cocaine dependence, uncomplicated; F12.20 Cannabis dependence, uncomplicated; F17.210 Nicotine dependence, cigarettes, uncomplicated; F19.282 Other psychoactive substance dependence with psychoactive substance-induced sleep disorder; F19.280 Other psychoactive substance dependence with psychoactive substance-induced anxiety disorder; F31.9 Bipolar disorder, unspecified; J45.22 Mild intermittent asthma with status asthmaticus; D64.9 Anemia, unspecified; J44.9 Chronic obstructive pulmonary disease, unspecified; N17.9 Acute kidney failure, unspecified; I10 Essential (primary) hypertension; E11.65 Type 2 diabetes mellitus with hyperglycemia; E11.42 Type 2 diabetes mellitus with diabetic polyneuropathy; Z79.4 Long term (current) use of insulin; K21.9 Gastro-esophageal reflux disease without esophagitis; N40.0 Benign prostatic hyperplasia without lower urinary tract symptoms; G47.00 Insomnia, unspecified; R19.7 Diarrhea, unspecified; I83.90 Asymptomatic varicose veins of unspecified lower extremity; Z87.19 Personal history of other diseases of the digestive system
CPT/HCPCS: 36415; 80053; 82962; 85027; 86593